=== PATIENT | male | born 1960 | race Caucasian/White ===

== ENCOUNTER 2020-09-27 13:44 | Emergency (ER) | payer MEDICARE, OTHER, SELFPAY ==
--- NOTE | 2020-09-27 | ECG_ITS ---
Test Reason : CHESTPAIN Blood Pressure : / mmHG Vent. Rate : 080 BPM Atrial Rate : 080 BPM P-R Int : 154 ms QRS Dur : 116 ms QT Int : 394 ms P-R-T Axes : 047 -34 109 degrees QTc Int : 454 ms Normal sinus rhythm Left axis deviation Intra-ventricular conduction delay Left ventricular hypertrophy with QRS widening and repolarization abnormality Abnormal ECG Left ventricular hypertrophy with repolizeration abnormality. is new Referred By: Generic ED Physician Electronically Signed By:ADRIENNE JOHNS MD
[2020-09-27 14:00] VITALS: BP 122/78; PULSE 80; RESP 18; TEMP 36.7; O2SAT 97
[2020-09-27 14:51] VITALS: BP 122/78; PULSE 80; RESP 18; TEMP 36.7; O2SAT 97; BMI 29.4
--- NOTE | 2020-09-27 15:15 | XR_ITS ---
EXAMINATION: XR CHEST CLINICAL INFORMATION: Chest pain COMPARISON: Chest x-ray 04/02/2019 TECHNIQUE: Frontal view of the chest was obtained. 3:23 PM FINDINGS: No significant abnormality is noted involving the heart, lungs, mediastinum, bony thorax or soft tissues. XR/XR chest 1V IMPRESSION: Unremarkable examination.
--- NOTE | 2020-09-27 15:31 | ED.CHESTPAIN ---
HPI - Chest Pain General Chief Complaint: Chest Pain Stated Complaint: chest pain Time Seen by Provider: 09/27/20 15:06 Source: patient Mode of arrival: ambulatory Limitations: no limitations History of Present Illness MD complaint: chest pain Onset (ago): week(s) (2) Timing of current episode: episodic Prior episodes: Yes Onset: during rest and during exertion Pain location: left chest Pain radiation: left arm Severity: moderate Quality: sharp Relieving factors: rest Exacerbating factors: exertion and movement Associated symptoms: nausea, diaphoresis and dyspnea Treatment prior to arrival: aspirin Related Data Allergies Allergy/AdvReac Type Severity Reaction Status Date / Time No Known Allergies Allergy Unverified 08/01/20 15:15 [No Known Allergies*] Review of Systems Review of Systems: Constitutional : No Weight loss, No Fever, No Chills ENT/Mouth : No sore throat, No Rhinorrhea Eyes: No Eye Pain, No Swelling Cardiovascular : pos Chest Pain, pos SOB, no Dyspnea on Exertion, No Orthopnea, No Edema, No Palpitations Respiratory : No Cough, No Sputum Gastrointestinal : pos Nausea, No Vomiting, No Diarrhea, No abdominal Pain, No Hematochezia, No Melena Genitourinary : No Dysuria, No Urinary Frequency Musculoskeletal : No joint pain, No Myalgias, No Joint Swelling Skin : No Skin Lesions, No rash Neuro : No Weakness, No Numbness, No Dizziness, No Headache Psych : No Anxiety/Panic, No Depression Heme/Lymph: No Bruising, No Lymphadenopathy Endocrine : No Polyuria, No Polydipsia All other systems reviewed and are negative [facility] Past Medical History Attestation statement: The following information was validated with the patient. Medical History Diabetes HTN (hypertension) Social History Social History (Updated 09/27/20 @ 15:39 by Marlene Schroeder DO) Alcohol intake: never Smoking Status: Current every day smoker Use of substances other than those prescribed or required for medical reasons: No Advance Directives: No Advance Directives Information Provided: Yes Physical Exam Vital Signs: Vital Signs: Last Vital Signs Temp 98.1 F 09/27/20 14:51 Pulse 80 09/27/20 14:51 Resp 18 09/27/20 14:51 BP 122/78 09/27/20 14:51 Pulse Ox 97 09/27/20 14:51 Body Mass Index 29.4 Appearance: Alert. Oriented X3. No acute distress. Eyes: Pupils equal, round and reactive to light. ENT: Pharynx normal. Neck: Normal inspection. Neck supple. CVS: Normal heart rate and rhythm. Pulses normal. Respiratory: No respiratory distress. Breath sounds normal. Abdomen: Soft and nontender. Skin: Skin warm and dry. Normal skin color. Normal skin turgor. Extremities: No lower extremity edema. No calf ttp Neuro: Oriented X 3. No motor deficit. No sensory deficit. Course Course Course Narrative: CATH MARCH 2019 LMCA normal, LAD less than 30% irregularities, LCx mild less than 30% irregularities, RCA 40% stenosis mid subsection - no interventions mild disease noted plan for repeat troponin at 6pm continue aspirin at home and follow up with cardiology if negative, signed out to Dr. Whitt [facility] - Chest Pain MDM Narrative Medical decision making narrative: 60 yo male with HTN, DM smoker - here with exact same story of house work and sex causing him to have CP on and off for 2 weeks currently chest pain free, EKG unchanged, calling [facility] as when he had these symptoms in March of 2019 we transferred him for unstable angina and cath, took baby ASA today Lab Data Result diagrams: 09/27/20 15:46 09/27/20 15:46 Labs: Lab Results 09/27/20 09/27/20 09/27/20 Range/Units 15:46 15:46 15:46 WBC 10.5 (4.8-10.8) X10*3/uL RBC 4.60 (4.60-5.80) X10*6/uL Hgb 12.5 L (14.0-18.0) g/dl Hct 39.3 L (42-52) % MCV 85.4 (80-98) fL MCH 27.2 (27.0-33.0) pg MCHC 31.8 (31.0-36.0) g/dl RDW 14.6 (11.0-16.0) % Plt Count 339 (160-400) X10*3/uL MPV 8.9 L (9.4-12.4) fL Immature Gran % (Auto) 0.3 (0.0-0.4) % Neut % (Auto) 71.5 (45-73) % Lymph % (Auto) 21.7 (20-40) % [place] % (Auto) 5.0 (2-11) % Eos % (Auto) 1.1 (0-4) % Baso % (Auto) 0.4 (0-2) % Lymph # (Auto) 2.3 (1.2-4.9) X10*3/uL [place] # (Auto) 0.5 (0.1-1.2) X10*3/uL Eos # (Auto) 0.1 (0.0-0.4) X10*3/uL Baso # (Auto) 0.0 (0.0-0.2) X10*3/uL Abs Immat Gran (auto) 0.03 (0.00-0.03) X10*3/uL Absolute Neuts (auto) 7.5 (2.0-8.3) X10*3/uL Absolute Nucleated RBC 0.000 (0.0-0.012) X10*3/uL Nucleated RBC % (auto) 0.0 (0.0-0.2) /100WBC PT 11.8 (10.8-13.0) SEC INR 1.0 (0.9-1.1) APTT 37.3 (24.1-38.0) SEC Sodium 140 (135-145) mmol/L Potassium 4.2 (3.3-5.1) mmol/l Chloride 103 (96-108) mmol/L Carbon Dioxide 29 (22-29) mmol/L Anion Gap 12 (12-20) BUN 10 (9-16) mg/dL Creatinine 0.81 (0.5-1.4) mg/dL Estim Creat Clear Calc 111.1 Estimated GFR > 60 Random Glucose 126 H (60-115) mg/dL Calcium 9.0 (8.4-10.2) mg/dL Troponin I High Sens (<3.5-35.0) ng/L 09/27/20 Range/Units 15:46 WBC (4.8-10.8) X10*3/uL RBC (4.60-5.80) X10*6/uL Hgb (14.0-18.0) g/dl Hct (42-52) % MCV (80-98) fL MCH (27.0-33.0) pg MCHC (31.0-36.0) g/dl RDW (11.0-16.0) % Plt Count (160-400) X10*3/uL MPV (9.4-12.4) fL Immature Gran % (Auto) (0.0-0.4) % Neut % (Auto) (45-73) % Lymph % (Auto) (20-40) % [place] % (Auto) (2-11) % Eos % (Auto) (0-4) % Baso % (Auto) (0-2) % Lymph # (Auto) (1.2-4.9) X10*3/uL [place] # (Auto) (0.1-1.2) X10*3/uL Eos # (Auto) (0.0-0.4) X10*3/uL Baso # (Auto) (0.0-0.2) X10*3/uL Abs Immat Gran (auto) (0.00-0.03) X10*3/uL Absolute Neuts (auto) (2.0-8.3) X10*3/uL Absolute Nucleated RBC (0.0-0.012) X10*3/uL Nucleated RBC % (auto) (0.0-0.2) /100WBC PT (10.8-13.0) SEC INR (0.9-1.1) APTT (24.1-38.0) SEC Sodium (135-145) mmol/L Potassium (3.3-5.1) mmol/l Chloride (96-108) mmol/L Carbon Dioxide (22-29) mmol/L Anion Gap (12-20) BUN (9-16) mg/dL Creatinine (0.5-1.4) mg/dL Estim Creat Clear Calc Estimated GFR Random Glucose (60-115) mg/dL Calcium (8.4-10.2) mg/dL Troponin I High Sens 4.5 (<3.5-35.0) ng/L ECG Data ECG #1: Attestation: I personally reviewed and interpreted this ECG as follows: ECG interpretation date: 09/27/20 ECG interpretation time: 15:36 Interpretation: Rate: 80 Rhythm: NSR [place]: left, LVH Normal P waves. Normal FAUZIA. wide QRS complex. Poor R wave progression ST T wave : inverted 1 and aVL. no ELISEO qTC: prior studies: no change March 2019 The study has been interpreted contemporaneously by me. . Discharge Plan Discharge Clinical Impression: Chest pain Instructions: Chest Pain (ED) Additional Instructions: return to ED for any worsening symptoms or concerns you need to call your test desk trouble locator for a repeat stress test Referrals: Aj Alonso MD [Primary Care Provider] - 2 days (cardiology referral for outpatient stress test)
[2020-09-27 16:04] LABS: MANUAL DIFF FLAG NO
[2020-09-27 16:07] LABS: Basophils Percent Auto 0.4 % (0-2); Eosinophils Absolute Auto 0.1 X10*3/uL (0.0-0.4); Eosinophils Percent Auto 1.1 % (0-4); Hematocrit 39.3 % (42-52); Hemoglobin 12.5 g/dl (14.0-18.0); Imm Gran Abs Auto 0.03 X10*3/uL (0.00-0.03); Imm Gran Pct Auto 0.3 % (0.0-0.4); Lymphocytes Absolute Auto 2.3 X10*3/uL (1.2-4.9); Lymphocytes Percent Auto 21.7 % (20-40); Mean Corpuscular HGB Conc 31.8 g/dl (31.0-36.0); Mean Corpuscular Hemoglobin 27.2 pg (27.0-33.0); Mean Corpuscular Volume 85.4 fL (80-98); Mean Platelet Volume 8.9 fL (9.4-12.4); Monocytes Absolute Auto 0.5 X10*3/uL (0.1-1.2); Neutrophils Absolute Auto 7.5 X10*3/uL (2.0-8.3); Neutrophils Percent Auto 71.5 % (45-73); Platelet Count 339 X10*3/uL (160-400); Red Cell Distribution Width 14.6 % (11.0-16.0); White Blood Count 10.5 X10*3/uL (4.8-10.8)
[2020-09-27 16:11] LABS: Prothrombin Time 11.8 SEC (10.8-13.0)
[2020-09-27 16:13] LABS: Partial Thromboplastin Time 37.3 SEC (24.1-38.0)
[2020-09-27 16:26] LABS: Anion Gap 12 (12-20); Blood Urea Nitrogen 10 mg/dL (9-16); Carbon Dioxide 29 mmol/L (22-29); Chloride 103 mmol/L (96-108); Creatinine Clr Calc Pharmacy 111.1; Estimated Glomerular Filt Rate > 60; Glucose Random 126 mg/dL (60-115); Potassium 4.2 mmol/l (3.3-5.1); Sodium 140 mmol/L (135-145)
[2020-09-27 16:31] LABS: Troponin-I High Sensitivity 4.5 ng/L (<3.5-35.0)
[2020-09-27 17:03] VITALS: BP 133/84; PULSE 71; RESP 16; TEMP 36.6; O2SAT 98
[2020-09-27 18:06] LABS: Alanine Aminotransferase 27 U/L (0-40); Albumin Level 3.9 g/dL (3.5-5.0); Alkaline Phosphatase 60 U/L (39-117); Aspartate Amino Transferase 24 U/L (5-37); Bilirubin Direct 0.3 mg/dL (0.0-0.5); Bilirubin Total 0.7 mg/dL (0.0-1.0); Lipase 28 U/L (8-78); Magnesium 1.7 mg/dL (1.6-2.6); Total Protein 6.8 g/dL (6.5-8.0)
[2020-09-27 19:40] LABS: Troponin-I High Sensitivity 5.7 ng/L (<3.5-35.0)
--- NOTE | 2020-09-27 20:22 | ECG_ITS ---
Test Reason : CHEST PAIN Blood Pressure : / mmHG Vent. Rate : 075 BPM Atrial Rate : 075 BPM P-R Int : 182 ms QRS Dur : 122 ms QT Int : 406 ms P-R-T Axes : 045 -29 103 degrees QTc Int : 453 ms Normal sinus rhythm Left axis deviation Left ventricular hypertrophy with QRS widening Cannot rule out Septal infarct (cited on or before 27-SEP-2020) Abnormal ECG When compared with ECG of 27-SEP-2020 13:56, Serial changes of Septal infarct Present Referred By: Rosanna Whitt Electronically Signed By:ADRIENNE JOHNS MD
== END 2020-09-27 22:24 | disposition home or self-care (01) ==
PROVIDERS: Emergency Medicine; Emergency Provider Emergency Medicine; PCP Internal Medicine
DX: R07.9 Chest pain, unspecified (principal); M79.602 Pain in left arm; F17.200 Nicotine dependence, unspecified, uncomplicated; Z71.6 Tobacco abuse counseling
CPT/HCPCS: 36415; 71045; 80048; 80076; 83690; 83735; 84484; 85025; 85610; 85730; 93005; 99284

== ENCOUNTER 2020-10-02 19:48 | Inpatient (IN) | payer MEDICARE, OTHER, SELFPAY ==
[2020-10-02 19:59] VITALS: BP 157/92; PULSE 86; RESP 16; TEMP 36.6; O2SAT 100; BMI 30.1
--- NOTE | 2020-10-02 20:59 | XR_ITS ---
EXAMINATION: XR CHEST CLINICAL INFORMATION: Chest pain COMPARISON: 09/27/2020 TECHNIQUE: Frontal view of the chest was obtained. FINDINGS: Lungs are well-inflated and clear. Trachea is midline in position. No interstitial disease, consolidation or mass. No pleural effusion or pneumothorax. Cardiac silhouette and pulmonary vessels are normal in size. The mediastinum and fifi have normal contour. Mild atherosclerotic calcification of the aortic arch. The visualized bones, and upper abdomen, are unremarkable. XR/XR chest 1V IMPRESSION: No acute cardiopulmonary abnormality.
--- NOTE | 2020-10-02 20:59 | ECG_ITS ---
Test Reason : CP Blood Pressure : / mmHG Vent. Rate : 095 BPM Atrial Rate : 095 BPM P-R Int : 154 ms QRS Dur : 116 ms QT Int : 362 ms P-R-T Axes : 047 -33 128 degrees QTc Int : 454 ms Normal sinus rhythm with sinus arrhythmia Left axis deviation Left ventricular hypertrophy with QRS widening and repolarization abnormality Cannot rule out Septal infarct (cited on or before 27-SEP-2020) ST more elevated in Septal leads Abnormal ECG When compared with ECG of 27-SEP-2020 20:22, Serial changes of Septal infarct Present Heart rate has increased Referred By: Perla Jasso Electronically Signed By:ADRIENNE JOHNS MD
--- NOTE | 2020-10-02 21:13 | PC.NURSE ---
PT REPORTS ANXIETY BEGINNING AROUND 1900. MID STERNAL TIGHT CHEST PAIN RADIATING TO BACK BEGINNING SHORTLY AFTER. N/V. DENIES SOB DENIES DIZZINESS. 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 NSR ON MONITOR. MD AT BEDSIDE FOR PRIMARY EVAL. PT REPORTS SIMILIAR EVENT LAST NIGHT AROUND 2300.
--- NOTE | 2020-10-02 21:20 | ED_ITS ---
HPI - Chest Pain General Chief Complaint: Chest Pain Stated Complaint: Chest Pain Time Seen by Provider: 10/02/20 20:59 Source: patient Mode of arrival: ambulatory Limitations: no limitations History of Present Illness HPI narrative: This is a 60-year-old male with past medical history significant for hypertension diabetes who presents with recurrent episodes of left anterior chest discomfort. This patient was evaluated here last Wednesday and discharged with instructions to follow-up with the primary care provider and possible discussion for further evaluation by Cardiology. He states that since that time he has had 2 more episodes of transient sharp left anterior chest pain that radiates in an oblique fashion from his left shoulder and is associated with some nausea and lasts 30 seconds to 7 minutes and worsens with movement but not with deep inspiration.. This has otherwise not been associated with dizziness or diaphoresis. He has an appointment tomorrow with his PCP at which time they will schedule him for further evaluation by Cardiology. Related Data Home Medications Medication Instructions Recorded Confirmed aspirin 81 mg DAILY 10/03/20 10/03/20 insulin glargine [Lantus Solostar 42 unit SUBCUT BEDTIME 10/03/20 10/03/20 U-100 Insulin] metformin 1,000 mg BID 10/03/20 10/03/20 omega-3 fatty acids [Fish Oil] PO BID 10/03/20 omeprazole [Prilosec] 20 mg DAILY 10/03/20 10/03/20 Allergies Allergy/AdvReac Type Severity Reaction Status Date / Time No Known Allergies Allergy Unverified 08/01/20 15:15 [No Known Allergies*] Review of Systems Review of Systems: Pertinent positives and negatives as stated in HPI 10 point review of systems is otherwise negative. [facility] Past Medical History Source: nursing notes reviewed Medical History (Updated 10/03/20 @ 03:52 by Rosemary Giles MD) Diabetes HTN (hypertension) Social History Social History Alcohol intake: current Alcohol intake frequency: a few times a week Smoking Status: Current every day smoker Advance Directives: No Advance Directives Information Provided: Yes Physical Exam Vital Signs: Vital Signs: Last Vital Signs Temp 97.5 F 10/03/20 01:13 Pulse 65 10/03/20 05:32 Resp 18 10/03/20 05:32 BP 124/70 10/03/20 02:46 Pulse Ox 99 10/03/20 05:32 Body Mass Index 30.1 VITAL SIGNS: Reviewed. GENERAL: Well developed, well nourished, in no acute distress. HEAD: Normocephalic/atraumatic, EYES: PERRLA, EOMI intact without pain, no nystagmus/pallor/icterus noted EARS: Ext canals without abnormality, TMs non-bulging and non-erythematous NOSE: Nares patent bilateral OROPHARYNX: no oral lesions noted, posterior pharynx clear and non-erythematous without noted tonsillar enlargement/erythema/exudates NECK: Supple, no adenopathy LUNGS: Normal breath sounds. No adventitious sounds or accessory muscle use. SpO2<100> CARDIOVASCULAR: Regular rate and rhythm without noted murmurs, no JVD or lower extremity edema. ABDOMEN: Soft, non-tender, non-distended with bowel sounds. No rigidity. No guarding. No palpable masses or hernias noted MUSCULOSKELETAL: No tenderness, deformities, or effusions noted on gross inspection. EXTREMITIES: No cyanosis, clubbing or edema. SKIN: Inspection of the skin reveals no rashes, ulcerations, jaundice, pallor, or petechiae. NEUROLOGIC: Alert and oriented x 4. Strength and sensation to light touch were grossly intact x 4. Course Course Course Narrative: This is a 60-year-old male with history and clinical presentation most consistent with costochondritis, GERD, and less likely pneumonia or cardiac ischemia. However, the 2 latter will be ruled out. HEART score - 3 review all lab work there is a noted mild leukocytosis, however of note initial high sensitivity troponin is 13 which is more than double from Wednesday when he was initially evaluated here in the emergency department. On subsequent high sensitivity troponin this evening the 2nd value is over 41. However, at this time patient is chest pain-free. 0205: This case was discussed with Dr. Sousa who recommends single dose of Lovenox and admission. Discussed case with the inpatient hospitalist who is agreeable for admission. MDM - Chest Pain Lab Data Result diagrams: 10/02/20 21:16 10/02/20 21:16 Labs: Lab Results 10/02/20 10/02/20 10/02/20 Range/Units 21:16 21:16 21:16 WBC 12.1 H (4.8-10.8) X10*3/uL RBC 4.70 (4.60-5.80) X10*6/uL Hgb 12.8 L (14.0-18.0) g/dl Hct 40.3 L (42-52) % MCV 85.7 (80-98) fL MCH 27.2 (27.0-33.0) pg MCHC 31.8 (31.0-36.0) g/dl RDW 14.6 (11.0-16.0) % Plt Count 336 (160-400) X10*3/uL MPV 9.1 L (9.4-12.4) fL Immature Gran % (Auto) 0.2 (0.0-0.4) % Neut % (Auto) 67.4 (45-73) % Lymph % (Auto) 22.1 (20-40) % [place] % (Auto) 7.7 (2-11) % Eos % (Auto) 2.1 (0-4) % Baso % (Auto) 0.5 (0-2) % Lymph # (Auto) 2.7 (1.2-4.9) X10*3/uL [place] # (Auto) 0.9 (0.1-1.2) X10*3/uL Eos # (Auto) 0.3 (0.0-0.4) X10*3/uL Baso # (Auto) 0.1 (0.0-0.2) X10*3/uL Abs Immat Gran (auto) 0.03 (0.00-0.03) X10*3/uL Absolute Neuts (auto) 8.2 (2.0-8.3) X10*3/uL Absolute Nucleated RBC 0.000 (0.0-0.012) X10*3/uL Nucleated RBC % (auto) 0.0 (0.0-0.2) /100WBC D-Dimer NG/ML Hold Blue Top Sodium 139 (135-145) mmol/L Potassium 4.2 (3.3-5.1) mmol/l Chloride 103 (96-108) mmol/L Carbon Dioxide 25 (22-29) mmol/L Anion Gap 15 (12-20) BUN 13 (9-16) mg/dL Creatinine 0.93 (0.5-1.4) mg/dL Estim Creat Clear Calc 97.8 Estimated GFR > 60 Random Glucose 116 H (60-115) mg/dL Calcium 9.2 (8.4-10.2) mg/dL Total Bilirubin 0.5 (0.0-1.0) mg/dL AST 31 (5-37) U/L ALT 28 (0-40) U/L Alkaline Phosphatase 71 (39-117) U/L Troponin I High Sens 13.0 D (<3.5-35.0) ng/L Total Protein 7.5 (6.5-8.0) g/dL Albumin 4.1 (3.5-5.0) g/dL Lipase 19 (8-78) U/L COVID-19 (MJ) (Negative) COVID-19 Clin Com 10/02/20 10/03/20 10/03/20 Range/Units 21:17 01:08 02:51 WBC (4.8-10.8) X10*3/uL RBC (4.60-5.80) X10*6/uL Hgb (14.0-18.0) g/dl Hct (42-52) % MCV (80-98) fL MCH (27.0-33.0) pg MCHC (31.0-36.0) g/dl RDW (11.0-16.0) % Plt Count (160-400) X10*3/uL MPV (9.4-12.4) fL Immature Gran % (Auto) (0.0-0.4) % Neut % (Auto) (45-73) % Lymph % (Auto) (20-40) % [place] % (Auto) (2-11) % Eos % (Auto) (0-4) % Baso % (Auto) (0-2) % Lymph # (Auto) (1.2-4.9) X10*3/uL [place] # (Auto) (0.1-1.2) X10*3/uL Eos # (Auto) (0.0-0.4) X10*3/uL Baso # (Auto) (0.0-0.2) X10*3/uL Abs Immat Gran (auto) (0.00-0.03) X10*3/uL Absolute Neuts (auto) (2.0-8.3) X10*3/uL Absolute Nucleated RBC (0.0-0.012) X10*3/uL Nucleated RBC % (auto) (0.0-0.2) /100WBC D-Dimer < 200 NG/ML Hold Blue Top SEE NOTE Sodium (135-145) mmol/L Potassium (3.3-5.1) mmol/l Chloride (96-108) mmol/L Carbon Dioxide (22-29) mmol/L Anion Gap (12-20) BUN (9-16) mg/dL Creatinine (0.5-1.4) mg/dL Estim Creat Clear Calc Estimated GFR Random Glucose (60-115) mg/dL Calcium (8.4-10.2) mg/dL Total Bilirubin (0.0-1.0) mg/dL AST (5-37) U/L ALT (0-40) U/L Alkaline Phosphatase (39-117) U/L Troponin I High Sens 41.2 H D (<3.5-35.0) ng/L Total Protein (6.5-8.0) g/dL Albumin (3.5-5.0) g/dL Lipase (8-78) U/L COVID-19 (MJ) Negative (Negative) COVID-19 Clin Com See Note ECG Data ECG #1: Attestation: I personally reviewed and interpreted this ECG as follows: Prior ECG tracings: available for review ( 09/27/2020 without acute changes on comparison) Interpretation: normal sinus rhythm, HR - 95, no evidence of acute ischemia, MT/QTC are within normal limits, QRS -116 Discharge Plan Discharge Clinical Impression: Non-ST elevation [place] (NSTEMI) Patient Disposition: Admitted As Inpatient
[2020-10-02 21:33] LABS: Basophils Absolute Auto 0.1 X10*3/uL (0.0-0.2); Basophils Percent Auto 0.5 % (0-2); Eosinophils Absolute Auto 0.3 X10*3/uL (0.0-0.4); Eosinophils Percent Auto 2.1 % (0-4); Hematocrit 40.3 % (42-52); Hemoglobin 12.8 g/dl (14.0-18.0); Imm Gran Abs Auto 0.03 X10*3/uL (0.00-0.03); Imm Gran Pct Auto 0.2 % (0.0-0.4); Lymphocytes Absolute Auto 2.7 X10*3/uL (1.2-4.9); Lymphocytes Percent Auto 22.1 % (20-40); MANUAL DIFF FLAG NO; Mean Corpuscular HGB Conc 31.8 g/dl (31.0-36.0); Mean Corpuscular Hemoglobin 27.2 pg (27.0-33.0); Mean Corpuscular Volume 85.7 fL (80-98); Mean Platelet Volume 9.1 fL (9.4-12.4); Monocytes Absolute Auto 0.9 X10*3/uL (0.1-1.2); Monocytes Percent Auto 7.7 % (2-11); Neutrophils Absolute Auto 8.2 X10*3/uL (2.0-8.3); Neutrophils Percent Auto 67.4 % (45-73); Platelet Count 336 X10*3/uL (160-400); Red Cell Distribution Width 14.6 % (11.0-16.0); White Blood Count 12.1 X10*3/uL (4.8-10.8)
[2020-10-02 21:54] LABS: Alanine Aminotransferase 28 U/L (0-40); Albumin Level 4.1 g/dL (3.5-5.0); Alkaline Phosphatase 71 U/L (39-117); Anion Gap 15 (12-20); Aspartate Amino Transferase 31 U/L (5-37); Bilirubin Total 0.5 mg/dL (0.0-1.0); Blood Urea Nitrogen 13 mg/dL (9-16); Calcium 9.2 mg/dL (8.4-10.2); Carbon Dioxide 25 mmol/L (22-29); Chloride 103 mmol/L (96-108); Creatinine Clr Calc Pharmacy 97.8; Estimated Glomerular Filt Rate > 60; Glucose Random 116 mg/dL (60-115); Lipase 19 U/L (8-78); Potassium 4.2 mmol/l (3.3-5.1); Sodium 139 mmol/L (135-145); Total Protein 7.5 g/dL (6.5-8.0)
[2020-10-02 23:19] LABS: D Dimer < 200 NG/ML
--- NOTE | 2020-10-02 23:27 | PC.NURSE ---
PT RESTING IN BED SKIN PWD RESPIRATIONS EVEN UNLABORED. NSR ON MONITOR. AWAITING SERIAL TROPONIN. AWARE OF PLAN OF CARE. DENIES PAIN AT THIS TIME.
[2020-10-03] VITALS (8 sets, daily range): BP systolic 117–153; BP diastolic 67–90; PULSE 65–76; RESP 18; TEMP 33.3–36.8; O2SAT 97–100
--- NOTE | 2020-10-03 | CT_ITS ---
EXAMINATION: CT ANGIOGRAM OF THE CHEST WITH AND WITHOUT CONTRAST (CT PULMONARY ANGIOGRAM FOR PE) CLINICAL INFORMATION: Reason for Exam chest pain r/o pulmonary embolism COMPARISON: Radiograph 10/02/2020. TECHNIQUE: Prior to contrast administration, noncontrast localization images were obtained. Subsequently, multidetector volumetric imaging was performed from the thoracic inlet to below the diaphragms following the administration of 65 mL Omnipaque 350 intravenous contrast. No contrast reaction reported Sagittal, coronal, and MIP oblique sagittal reformatted images were obtained on the CT workstation, uploaded to PACS, and reviewed. This CT examination was performed using dose optimization techniques as appropriate, variously including the following: *Automated exposure control *Adjustment of mA and/or kV according to patient size (this includes techniques or standardized protocols for targeted exams where dose is matched to indication/reason for exam; i.e. extremities or head) *Use of iterative reconstruction technique Total exam dose-length product 327 mGy-cm FINDINGS: QUALITY OF STUDY/CONTRAST BOLUS: Satisfactory. PULMONARY ARTERIES: No central or segmental pulmonary emboli. THORACIC AORTA: No aneurysm or dissection. LUNG: No focal consolidation, nodules or masses. The central airways are patent. Minimal bibasilar atelectasis. PLEURA: No pleural effusion or pneumothorax. MEDIASTINUM: Normal heart size. No pericardial effusion. Coronary artery calcifications are present. No hilar or mediastinal lymphadenopathy. No evidence of septal bowing or right heart strain. CHEST WALL/AXILLA: No axillary or internal mammary lymphadenopathy. OSSEOUS STRUCTURES: No acute or suspicious osseous abnormality. UPPER ABDOMEN: Unremarkable. No reflux of contrast into the hepatic veins to suggest elevated right heart pressures. CT/CT angio chest PE protocol IMPRESSION: No pulmonary embolism or other acute intrathoracic abnormality. VTE: negative
[2020-10-03 01:38] LABS: Troponin-I High Sensitivity 41.2 ng/L (<3.5-35.0)
[2020-10-03] MEDS: Aspirin 81 MG TAB.CHEW 324 MG PO (02:52)
[2020-10-03] MEDS: Enoxaparin Sodium 120 MG/0.8 ML SYRINGE 95 MG SUBCUT (03:07)
--- NOTE | 2020-10-03 03:09 | PC.NURSE ---
HOSPITALIST AT BEDSIDE FOR CONSULT.
[2020-10-03 03:14] LABS: COVID-19 Test Negative (Negative); IDNOW Serial# 9DD0AD1C
--- NOTE | 2020-10-03 03:42 | PM.IMHP ---
History of Present Illness Date of Service: 10/03/20 Chief Complaint: Chest pain 60 y/o male with extensive PMHX who presented from home due to chest pain. Per history provided by the patient, for the past 2 days has been having on and off chest pressure, in the left sided of the chest radiating to the left arm, at rest and on ambulation, not associated with SOB. Pain is reproducible when palpating the chest. WBC of 12.1, Trop from 13 to 41. CXR clear, EKG showing LVH with strain. 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 Records were reviewed and patient had a previous admission on march of last year for same complaints. Patient was transferred to [facility] for cardiac cath. It is unclear the results of the exam but patient was supposed to followed up this week with cardio per him. Decision for admission given. Patient seen and examined at the bedside, laying down in bed in no acute distress, ROS as above otherwise negative. Physical exam positive for tenderness of the left sided of the chest. PMHX: 1. Hypertension 2. Hyperlipidemia 3. Diabetes mellitus 4. Smoker 5. History of TIA 6. Chronic back pain Past surgical history: Left knee surgery Cardiac catth Toxic habits: Smoker, Alcohol use, No hx of IVDA Review of Systems Cardiovascular: Cardiovascular: Reports [facility] Medical History Diabetes HTN (hypertension) Functional capacity: independent ambulation Family history: reviewed and not pertinent Social History Alcohol intake: current Alcohol intake frequency: a few times a week Smoking Status: Current every day smoker Advance Directives: No Advance Directives Information Provided: Yes Meds Allergies Allergy/AdvReac Type Severity Reaction Status Date / Time No Known Allergies Allergy Unverified 08/01/20 15:15 [No Known Allergies*] Home Medications Medication Instructions Recorded Confirmed Type No Known Home Meds 10/03/20 10/03/20 History omeprazole [Prilosec] 10/03/20 History Physical Exam Vital Signs and Narrative: Vital Signs: Last Vital Signs Temp 97.5 F 10/03/20 01:13 Pulse 71 10/03/20 02:46 Resp 18 10/03/20 02:46 BP 124/70 10/03/20 02:46 Pulse Ox 100 10/03/20 02:46 Body Mass Index 30.1 Const: General: cooperative, comfortable and no acute distress Orientation/consciousness: oriented to person, oriented to place and oriented to time HENMT: Head: Yes normal to inspection Eyes: General: appearance normal, both eyes and all related structures Neck: Yes normal visual inspection Chest: Chest palpation & inspection: normal inspection of the chest and other (tenderness on palpation of left side of the chest ) Resp: Effort & Inspection: normal respiratory effort Cardio: Jugular venous distension: no JVD Rate: regular rate Rhythm: regular rhythm Heart sounds: S1 normal heart sound present and S2 normal heart sound present GI: Inspection: Yes normal to inspection Skin: General skin exam: no rashes or lesions noted Neuro: General: oriented to person, oriented to place and oriented to time Cognition (Neuro): normal cognition Motor exam (neuro): 5/5 motor strength present throughout Results Labs CBC and Chem 7: 10/02/20 21:16 10/02/20 21:16 Labs: Laboratory Results - last 24 hr 10/02/20 10/02/20 10/02/20 21:16 21:16 21:16 MCV 85.7 MCH 27.2 MCHC 31.8 RDW 14.6 Plt Count 336 MPV 9.1 L Immature Gran % (Auto) 0.2 Neut % (Auto) 67.4 Lymph % (Auto) 22.1 [place] % (Auto) 7.7 Eos % (Auto) 2.1 Baso % (Auto) 0.5 Lymph # (Auto) 2.7 [place] # (Auto) 0.9 Eos # (Auto) 0.3 Baso # (Auto) 0.1 Abs Immat Gran (auto) 0.03 Absolute Neuts (auto) 8.2 Absolute Nucleated RBC 0.000 Nucleated RBC % (auto) 0.0 D-Dimer Hold Blue Top Anion Gap 15 Estim Creat Clear Calc 97.8 Estimated GFR > 60 Random Glucose 116 H Calcium 9.2 Total Bilirubin 0.5 AST 31 ALT 28 Alkaline Phosphatase 71 Troponin I High Sens 13.0 D Total Protein 7.5 Albumin 4.1 Lipase 19 COVID-19 (MJ) COVID-19 Clin Com 10/02/20 10/03/20 10/03/20 21:17 01:08 02:51 MCV MCH MCHC RDW Plt Count MPV Immature Gran % (Auto) Neut % (Auto) Lymph % (Auto) [place] % (Auto) Eos % (Auto) Baso % (Auto) Lymph # (Auto) [place] # (Auto) Eos # (Auto) Baso # (Auto) Abs Immat Gran (auto) Absolute Neuts (auto) Absolute Nucleated RBC Nucleated RBC % (auto) D-Dimer < 200 Hold Blue Top SEE NOTE Anion Gap Estim Creat Clear Calc Estimated GFR Random Glucose Calcium Total Bilirubin AST ALT Alkaline Phosphatase Troponin I High Sens 41.2 H D Total Protein Albumin Lipase COVID-19 (MJ) Negative COVID-19 Clin Com See Note Imaging Radiologist's Impressions: Impressions Chest X-Ray 10/02/20 20:59 IMPRESSION: No acute cardiopulmonary abnormality. Assessment and Plan (1) Non-ST elevation MO (NSTEMI): Status: Acute S/p one dose of full dose Lovenox Per ED Cardio only recommended one dose of Full AC open soaper tender Follow up 2D echo in the am Pain reproducibel with palpation likely musculoskeletal Cardio consult in the am (2) HTN (hypertension): Status: Acute unclear patient's meds at present as reconcilliation is not complete. [facility] pharmacy to be called in the am for confirmation (3) Diabetes: Status: Acute Insulin regimen as ordered
--- NOTE | 2020-10-03 04:26 | PC.NURSE ---
PT NOT VERY KNOWLEDGEABLE ABOUT HOME MEDS. MED REC UPDATED PER PT ABILITY TO RECALL. PHARMACY CLOSED, NO EXTERNAL MED HISTORY IN COMPUTER. HOSPITALIST AWARE. PT RESTING IN BED NSR ON MONITOR, SKIN PWD RESPIRATIONS EVEN UNLABORED. AWAITING BED ASSIGNMENT FOR ADMISSION.
--- NOTE | 2020-10-03 05:33 | PC.NURSE ---
PT CONTINUES TO REST IN BED SKIN PWD RESPIRATIONS EVEN UNLABORED. 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 AWAITING BED ASSIGNMENT.
[2020-10-03 05:35] LABS: Prothrombin Time 11.6 SEC (10.8-13.0)
[2020-10-03 05:38] LABS: Partial Thromboplastin Time 48.1 SEC (24.1-38.0)
--- NOTE | 2020-10-03 11:22 | P.CONCA_ITS ---
History of Present Illness History of Present Illness Date of Consult: October 03, 2020 Chief complaint: NSTEMI Narrative: This is a cardiology consultation regarding chest pain. Not entirely clear if he sees any quantitative analyst developer. For the last several days, he has been having a discomfort in the left chest as well as in the left shoulder area. He can happen randomly. this can happen during rest as well as physical exertion. There was also some reproducibility as well. He has a history of diabetes, hypertension as well as dyslipidemia and smoking. Because of cardiac concerns, he has been admitted. Review of Systems Review of Systems: Cardiac-positive for chest pain but somewhat atypical for angina; negative for shortness of breath; negative for palpitations or dizzy spells or syncopal episodes. Yes all other systems are reviewed and are negative PMFSH Past Medical History Medical History Diabetes HTN (hypertension) Functional capacity: independent ambulation Family History Family history: reviewed and not pertinent Social History Social History Alcohol intake: current Alcohol intake frequency: a few times a week Smoking Status: Current every day smoker Advance Directives: No Advance Directives Information Provided: Yes Meds Allergies Allergy/AdvReac Type Severity Reaction Status Date / Time No Known Allergies Allergy Unverified 08/01/20 15:15 [No Known Allergies*] Home Medications Medication Instructions Recorded Confirmed Type aspirin 81 mg DAILY 10/03/20 10/03/20 History insulin glargine [Lantus Solostar 42 unit SUBCUT BEDTIME 10/03/20 10/03/20 History U-100 Insulin] metformin 1,000 mg BID 10/03/20 10/03/20 History omega-3 fatty acids [Fish Oil] PO BID 10/03/20 History omeprazole [Prilosec] 20 mg DAILY 10/03/20 10/03/20 History Physical Exam Vital Signs: Vital Signs: Last Vital Signs Temp 92 F L 10/03/20 08:00 Pulse 65 10/03/20 08:00 Resp 18 10/03/20 08:00 BP 124/70 10/03/20 08:00 Pulse Ox 99 10/03/20 08:00 Body Mass Index 30.1 Comfortable, no distress No pallor, icterus or cyanosis HEENT -unremarkable JVD- normal Cardiac- normal heart sounds, no murmurs, gallops or rubs, normal PMI Respiratory-normal breath sounds bilaterally, no crackles, no wheeze Abdomen- soft, nontender Neuro- alert and oriented Lower extremities- no significant edema, warm well perfused Results Labs and Meds Result diagrams: 10/02/20 21:16 10/02/20 21:16 Lab results: Laboratory Results - last 24 hr 10/02/20 10/02/20 10/02/20 21:16 21:16 21:16 WBC 12.1 H RBC 4.70 Hgb 12.8 L Hct 40.3 L MCV 85.7 MCH 27.2 MCHC 31.8 RDW 14.6 Plt Count 336 MPV 9.1 L Immature Gran % (Auto) 0.2 Neut % (Auto) 67.4 Lymph % (Auto) 22.1 [place] % (Auto) 7.7 Eos % (Auto) 2.1 Baso % (Auto) 0.5 Lymph # (Auto) 2.7 [place] # (Auto) 0.9 Eos # (Auto) 0.3 Baso # (Auto) 0.1 Abs Immat Gran (auto) 0.03 Absolute Neuts (auto) 8.2 Absolute Nucleated RBC 0.000 Nucleated RBC % (auto) 0.0 PT INR APTT D-Dimer Hold Blue Top Sodium 139 Potassium 4.2 Chloride 103 Carbon Dioxide 25 Anion Gap 15 BUN 13 Creatinine 0.93 Estim Creat Clear Calc 97.8 Estimated GFR > 60 Random Glucose 116 H Calcium 9.2 Total Bilirubin 0.5 AST 31 ALT 28 Alkaline Phosphatase 71 Troponin I High Sens 13.0 D Total Protein 7.5 Albumin 4.1 Lipase 19 COVID-19 (MJ) COVID-19 Clin Com 10/02/20 10/03/20 10/03/20 21:17 01:08 02:51 WBC RBC Hgb Hct MCV MCH MCHC RDW Plt Count MPV Immature Gran % (Auto) Neut % (Auto) Lymph % (Auto) [place] % (Auto) Eos % (Auto) Baso % (Auto) Lymph # (Auto) [place] # (Auto) Eos # (Auto) Baso # (Auto) Abs Immat Gran (auto) Absolute Neuts (auto) Absolute Nucleated RBC Nucleated RBC % (auto) PT INR APTT D-Dimer < 200 Hold Blue Top SEE NOTE Sodium Potassium Chloride Carbon Dioxide Anion Gap BUN Creatinine Estim Creat Clear Calc Estimated GFR Random Glucose Calcium Total Bilirubin AST ALT Alkaline Phosphatase Troponin I High Sens 41.2 H D Total Protein Albumin Lipase COVID-19 (MJ) Negative COVID-19 Clin Com See Note 10/03/20 05:23 WBC RBC Hgb Hct MCV MCH MCHC RDW Plt Count MPV Immature Gran % (Auto) Neut % (Auto) Lymph % (Auto) [place] % (Auto) Eos % (Auto) Baso % (Auto) Lymph # (Auto) [place] # (Auto) Eos # (Auto) Baso # (Auto) Abs Immat Gran (auto) Absolute Neuts (auto) Absolute Nucleated RBC Nucleated RBC % (auto) PT 11.6 INR 1.0 APTT 48.1 H D D-Dimer Hold Blue Top Sodium Potassium Chloride Carbon Dioxide Anion Gap BUN Creatinine Estim Creat Clear Calc Estimated GFR Random Glucose Calcium Total Bilirubin AST ALT Alkaline Phosphatase Troponin I High Sens Total Protein Albumin Lipase COVID-19 (MJ) COVID-19 Clin Com Assessment and Plan (1) Precordial chest pain: Status: Acute (2) Elevated troponin: Status: Acute (3) Atherosclerotic cardiovascular disease: Status: Acute (4) Type 2 diabetes mellitus with unspecified complications: Status: Acute (5) Essential hypertension: Status: Acute (6) Smoking: Status: Acute Cardiac catheterization data reviewed. This was performed 03/2019. left main was normal. Mild luminal irregularities only in the LAD and circumflex and 40% stenosis in the midsection of RCA. Overall, no obstructive disease noted. Uncertain etiology for his current symptoms. Will need to also assess him for any pulmonary embolism or other pulmonary issues. If that is negative, then microvascular disease is possible. Will follow up with you. Echocardiogram can be completed as well. Repeat troponins. Procedures Abscess I/D Date of Service: 10/03/20
--- NOTE | 2020-10-03 11:34 | PC.NURSE ---
report given to daniel lomax
[2020-10-03] MEDS: iohexoL 350 MG/ML 100 ML INFUS..BTL IV (12:08)
--- NOTE | 2020-10-03 12:22 | CA_ITS ---
Transthoracic Echocardiogram Patient (Last, First, Middle): Cruz Ryan L Gender: Male Date of : 1960 Age: 60 Procedure Date: 10/03/2020 Procedure Type: Transthoracic Echocardiogram Location: [facility] [place] Height: 177.8 cm Weight: 95.26 kg BSA: 2.13 m2 Heart Rate: bpm BP: 132 / 73 mmHg Rv Service Technician: DSG Referring MD: Rosemary Giles MD Symptoms: NSTEMI Study Quality: Good ECG Rhythm: Sinus Conclusions: - The left ventricular systolic function is low normal. The visually estimated ejection fraction is between 50-55%. - No obvious valvular pathology seen on this study. Findings Left Ventricle Normal left ventricular cavity size. There is normal left ventricular wall thickness. The left ventricular systolic function is low normal. The visually estimated ejection fraction is between 50-55%. The calculated ejection fraction is 54% by biplane method. There is no evidence of regional wall motion abnormalities. E/E prime ratio is <8, consistent with normal filling pressures. Evidence suggests grade I (mild) diastolic dysfunction. Right Ventricle Normal right ventricular cavity size and systolic function. Atria The left atrium is normal in size. The right atrium is normal in size. Aortic Valve There is a normal trileaflet aortic valve. There is no aortic valve stenosis. There is no aortic valve regurgitation. Mitral Valve The mitral valve appears normal. There is trace mitral valve regurgitation. There is no mitral valve stenosis. Pulmonic Valve The pulmonic valve was not well visualized. Tricuspid Valve Normal tricuspid valve structure. There is trace tricuspid valve regurgitation. The pulmonary artery systolic pressure is normal. Great Vessels The aortic annulus, sinuses of valsalva, asc aorta, and aortic arch are normal in size. Venous The inferior vena cava is normal in size and collapses greater than 50% with inspiration. Pericardium/Pleural There is no evidence of pericardial effusion. Prior Study Comparison No significant change compared to prior study dated: 04/03/2019. Recommendations, Care & Conclusions No obvious valvular pathology seen on this study. Measurements 2D Linear Measurements IVSd: 1.13 0.6-0.9/0.6-1.0 cm LVIDd: 5.47 3.9-5.3/4.2-5.9 cm LVIDd Index: 2.57 2.4-3.2/2.2-3.1 cm/m2 LVIDs: 3.66 2.0-3.6 cm LVPWd: 0.85 0.7-1.1 cm Ao Root: 3.20 2.1-3.5 cm LA Diam: 4.40 2.7-3.8/3.0-4.0 cm LAIDs Index: 2.07 1.5-2.3 cm/m2 LV Mass: 259.82 67-162/88-224 g LV Mass Index: 121.98 43-95/49-115 g/m2 LVOT Diam: 2.10 3.0+(-)1.3 cm 2D Systolic Function EF 4C: 58.30 >55% EF 2C: 48.00 >55% EF BiP: 53.80 >55% Mitral Valve MV Pk E: 0.51 MV PK A: 0.54 MV Decel Time: 141.00 E/A: 0.90 E'Lateral: 6.96 E'Medial: 4.84 E/E' Med: 10.50 E/E' Lat: 7.30 PHT: 41.00 MVA PHT: 5.37 Decel [place]: 3.62 Aortic Valve AoV Pk Tano: 1.02 AoV Pk Grad: 4.00 LVOT LVOT Pk Tano: 0.86 LVOT Mn [place]: 0.60 LVOT VTI: 0.18 LVOT Pk Grad: 3.00 LVOT Mn Grad: 2.00 LVOT Diam: 2.10 LVOT Area: 3.46 Diastolic Function MV Pk E: 0.51 MV Pk A: 0.54 E/A: 0.90 E'Medial: 4.84 E/E' Med: 10.50 E' Laterial: 6.96 E/E' Lat: 7.30 Tricuspid Valve TR Pk [place]ano: 1.90 TR Pk Grad: 14.00 RA Press: 3.00 RVSP: 17.00 Great Vessels Aorta Ao Root-2D: 3.20 2.0-3.7 cm Ao Asc: 3.50 2.1-3.4 cm Ao Arch: 3.30 Updated in Other Vendor System with Status of Final Devin Sousa MD electronically signed on 10/03/2020 4:53:02 PM with status of Final
[2020-10-03] MEDS: 0.9 % Sodium Chloride Flush 3 ML SYRINGE IVFLUSH ×2 (13:36→15:40)
[2020-10-03 13:38] LABS: Glucose, Whole Blood 94 mg/dL (60-115)
[2020-10-03 13:38] LABS: MANUAL DIFF FLAG NO
[2020-10-03 13:41] LABS: Basophils Absolute Auto 0.1 X10*3/uL (0.0-0.2); Basophils Percent Auto 0.5 % (0-2); Eosinophils Absolute Auto 0.2 X10*3/uL (0.0-0.4); Eosinophils Percent Auto 2.5 % (0-4); Hematocrit 40.5 % (42-52); Hemoglobin 13.2 g/dl (14.0-18.0); Imm Gran Abs Auto 0.03 X10*3/uL (0.00-0.03); Imm Gran Pct Auto 0.3 % (0.0-0.4); Lymphocytes Absolute Auto 2.6 X10*3/uL (1.2-4.9); Lymphocytes Percent Auto 28.1 % (20-40); Mean Corpuscular HGB Conc 32.6 g/dl (31.0-36.0); Mean Corpuscular Hemoglobin 27.7 pg (27.0-33.0); Mean Corpuscular Volume 84.9 fL (80-98); Mean Platelet Volume 8.6 fL (9.4-12.4); Monocytes Absolute Auto 0.7 X10*3/uL (0.1-1.2); Monocytes Percent Auto 7.9 % (2-11); Neutrophils Absolute Auto 5.5 X10*3/uL (2.0-8.3); Neutrophils Percent Auto 60.7 % (45-73); Platelet Count 322 X10*3/uL (160-400); Red Blood Count 4.77 X10*6/uL (4.60-5.80); Red Cell Distribution Width 14.6 % (11.0-16.0); White Blood Count 9.1 X10*3/uL (4.8-10.8)
[2020-10-03] MEDS: Enoxaparin Sodium 100 MG/ML SYRINGE 95 MG SUBCUT (13:43)
[2020-10-03] MEDS: Omeprazole 20 MG CAPSULE.DR PO (13:44)
[2020-10-03 14:20] LABS: Blood Urea Nitrogen 12 mg/dL (9-16)
[2020-10-03 14:21] LABS: Anion Gap 14 (12-20); Blood Urea Nitrogen 12 mg/dL (9-16); Calcium 8.7 mg/dL (8.4-10.2); Carbon Dioxide 26 mmol/L (22-29); Chloride 105 mmol/L (96-108); Creatinine Clr Calc Pharmacy 110.9; Estimated Glomerular Filt Rate > 60; Glucose Random 89 mg/dL (60-115); Potassium 4.1 mmol/l (3.3-5.1); Sodium 141 mmol/L (135-145)
[2020-10-03 14:28] LABS: Troponin-I High Sensitivity 12.6 ng/L (<3.5-35.0)
[2020-10-03 16:15] LABS: Glucose, Whole Blood 107 mg/dL (60-115)
--- NOTE | 2020-10-03 17:07 | P.EN_ITS ---
Event Note Date of Service: 10/03/20 Event Note: 60-year-old male with history of smoking presented with chest p ain that started 3 weeks before on and off associated with left arm numbness and sweating in the ER found to have mildly elevated troponin patient seen and examined at bedside Still reporting some discomfort on exam alert abdomen soft CVS rate and rhythm regular admitted with chest pain rule out ACS troponin mildly elevated with flat trend, monitor on telemetry seen by Cardiology plan for echocardiogram today and stress test tomorrow see H&P from today for more details
[2020-10-03 20:26] LABS: Glucose, Whole Blood 113 mg/dL (60-115)
[2020-10-03] MEDS: Insulin Glargine,Hum.rec.anlog 100 UNIT/ML 10 ML VIAL 42 UNIT SUBCUT (22:00)
--- NOTE | 2020-10-04 | CA_ITS ---
Acquisition Time: 2020-10-04 11:13:36 Total Exercise Time: 00:06:35 Test Indications: Chest Pain Medications: SEE EMAR Protocol: KEVIN Max HR: 153 BPM 95% of Pred: 160 BPM Max BP: 182/094 mmHG Max Work Load: 7.8 METS Exercise nuclear stress test using Kevin protocol, total of 6 min 35 sec. METS7.8, THR up to 95%. Pt reports burning like warm sensation in L upper chest, at peak exercise, he reports warm like feeling. some SOB. EKG without arrhythmias. ST depression in lateral and inferior leads. ST elevation mild changes in septal leads. EKG done. However the chest pain was reproducable. Nuclear images to follow. Normotensive response to exercise. Test reviewed with DR. Sousa. Referred By: Devin Sousa Overread By: Joy Ji
[2020-10-04] MEDS: 0.9 % Sodium Chloride Flush 3 ML SYRINGE IVFLUSH ×2 (00:26→08:25)
[2020-10-04] MEDS: Enoxaparin Sodium 100 MG/ML SYRINGE 95 MG SUBCUT ×2 (02:02→16:01)
[2020-10-04 03:55] VITALS: BP 146/83; PULSE 84; RESP 18; TEMP 36.7; O2SAT 98
[2020-10-04 06:16] LABS: Hematocrit 41.6 % (42-52); Hemoglobin 13.4 g/dl (14.0-18.0); Mean Corpuscular HGB Conc 32.2 g/dl (31.0-36.0); Mean Corpuscular Hemoglobin 27.1 pg (27.0-33.0); Mean Platelet Volume 9.4 fL (9.4-12.4); Platelet Count 349 X10*3/uL (160-400); Red Blood Count 4.95 X10*6/uL (4.60-5.80); Red Cell Distribution Width 14.5 % (11.0-16.0); White Blood Count 10.2 X10*3/uL (4.8-10.8)
[2020-10-04 06:28] LABS: INTERNATIONAL NORM RATIO 1.1 (0.9-1.1); Prothrombin Time 12.5 SEC (10.8-13.0)
[2020-10-04 08:00] VITALS: BP 159/95; PULSE 74; RESP 20; TEMP 36.6; O2SAT 99
[2020-10-04 08:06] LABS: Glucose, Whole Blood 125 mg/dL (60-115)
[2020-10-04] MEDS: Omeprazole 20 MG CAPSULE.DR PO (08:23)
[2020-10-04] MEDS: Aspirin Enteric Coated 81 MG TABLET.DR PO (08:23)
[2020-10-04] MEDS: Acetaminophen 325 MG TABLET 650 MG PO (08:25)
--- NOTE | 2020-10-04 09:00 | NM_ITS ---
EXERCISE MYOCARDIAL PERFUSION STUDY INDICATION: Chest pain, assess for coronary disease and ischemia TECHNIQUE: The patient was brought in for an exercise perfusion study on 10/04/2020. Patient performed exercise as per Mayank protocol and was injected 41 mCi of sestamibi once target heart rate was achieved. Images were obtained using the SPECT gamma camera interlaced with the gating device. Images were obtained in supine position. Resting perfusion study was performed on 10/04/2020. Patient was administered 14 mCi of sestamibi intravenously at rest. Images were then obtained in supine position. Total DLP 69mGy-cm. Images were processed with the software and compared side to side in short axis, horizontal long axis and vertical long axis views. FINDINGS: Raw images were reviewed. The stress perfusion study showed diminished tracer uptake along the inferior wall. With CT attenuation correction, there is improved uptake in this area suggestive of diaphragmatic attenuation artifact. There is slight perfusion defect in the distal anterior septum which is seen in both stress as well as rest acquisition. The gated study shows low normal LV systolic function with calculated LVEF of 50%. LV cavity is normal in size. The gated study shows normal wall thickening and contraction of segments. Resting study shows mildly diminished tracer uptake in the basal inferior septum. Improvement with CT attenuation correction suggestive of diaphragmatic attenuation artifact. Gating at rest reveals normal wall motion with ejection fraction at 56%. The findings are consistent with reversible inferior perfusion defect suspected to be from diaphragmatic attenuation artifact; small distal anterior septal defect that could be artifactual and less likely representing ischemia. NM/NM cassy perf SPECT rest & str IMPRESSION: 1. Myocardial perfusion imaging study shows reversible inferior defect suspected to be from diaphragmatic attenuation artifact; small distal anteroseptal defect with reversible and fixed components that could be artifactual, and less likely to represent true ischemia. 2. Gated LVEF is 50% during stress and 56% during rest. 3. Transient ischemic dilatation not present. EKG component of the test reported separately.
--- NOTE | 2020-10-04 10:41 | PM.PNCARD ---
Subjective Subjective Interval history: He states that he is feeling better. He did get some chest pain but not as profound as before. Review of Systems Review of Systems Cardiac-positive for chest pain but somewhat atypical for angina; negative for shortness of breath; negative for palpitations or dizzy spells or syncopal episodes. Yes all other systems are reviewed and are negative Physical Exam Vital Signs: Last Vital Signs Temp 92 F L 10/03/20 08:00 Pulse 65 10/03/20 08:00 Resp 18 10/03/20 08:00 BP 124/70 10/03/20 08:00 Pulse Ox 99 10/03/20 08:00 Body Mass Index 30.1 Comfortable, no distress No pallor, icterus or cyanosis HEENT -unremarkable JVD- normal Cardiac- normal heart sounds, no murmurs, gallops or rubs, normal PMI Respiratory-normal breath sounds bilaterally, no crackles, no wheeze Abdomen- soft, nontender Neuro- alert and oriented Lower extremities- no significant edema, warm well perfused Results Labs and Meds Result diagrams: 10/04/20 05:21 10/03/20 13:29 Lab results: Laboratory Results - last 24 hr 10/03/20 10/03/20 10/03/20 13:29 13:29 13:29 WBC 9.1 RBC 4.77 Hgb 13.2 L Hct 40.5 L MCV 84.9 MCH 27.7 MCHC 32.6 RDW 14.6 Plt Count 322 MPV 8.6 L Immature Gran % (Auto) 0.3 Neut % (Auto) 60.7 Lymph % (Auto) 28.1 [place] % (Auto) 7.9 Eos % (Auto) 2.5 Baso % (Auto) 0.5 Lymph # (Auto) 2.6 [place] # (Auto) 0.7 Eos # (Auto) 0.2 Baso # (Auto) 0.1 Abs Immat Gran (auto) 0.03 Absolute Neuts (auto) 5.5 Absolute Nucleated RBC 0.000 Nucleated RBC % (auto) 0.0 PT INR Sodium 141 Potassium 4.1 Chloride 105 Carbon Dioxide 26 Anion Gap 14 BUN 12 Creatinine 0.82 Estim Creat Clear Calc 110.9 Estimated GFR > 60 POC Glucose Random Glucose 89 Calcium 8.7 Troponin I High Sens Cancelled 10/03/20 10/03/20 10/03/20 13:29 13:29 13:34 WBC RBC Hgb Hct MCV MCH MCHC RDW Plt Count MPV Immature Gran % (Auto) Neut % (Auto) Lymph % (Auto) [place] % (Auto) Eos % (Auto) Baso % (Auto) Lymph # (Auto) [place] # (Auto) Eos # (Auto) Baso # (Auto) Abs Immat Gran (auto) Absolute Neuts (auto) Absolute Nucleated RBC Nucleated RBC % (auto) PT INR Sodium Potassium Chloride Carbon Dioxide Anion Gap BUN 12 Creatinine Estim Creat Clear Calc Estimated GFR POC Glucose 94 Random Glucose Calcium Troponin I High Sens 12.6 D 10/03/20 10/03/20 10/04/20 16:09 20:22 05:21 WBC 10.2 RBC 4.95 Hgb 13.4 L Hct 41.6 L MCV 84.0 MCH 27.1 MCHC 32.2 RDW 14.5 Plt Count 349 MPV 9.4 Immature Gran % (Auto) Neut % (Auto) Lymph % (Auto) [place] % (Auto) Eos % (Auto) Baso % (Auto) Lymph # (Auto) [place] # (Auto) Eos # (Auto) Baso # (Auto) Abs Immat Gran (auto) Absolute Neuts (auto) Absolute Nucleated RBC 0.000 Nucleated RBC % (auto) 0.0 PT INR Sodium Potassium Chloride Carbon Dioxide Anion Gap BUN Creatinine Estim Creat Clear Calc Estimated GFR POC Glucose 107 113 Random Glucose Calcium Troponin I High Sens 10/04/20 10/04/20 05:21 08:00 WBC RBC Hgb Hct MCV MCH MCHC RDW Plt Count MPV Immature Gran % (Auto) Neut % (Auto) Lymph % (Auto) [place] % (Auto) Eos % (Auto) Baso % (Auto) Lymph # (Auto) [place] # (Auto) Eos # (Auto) Baso # (Auto) Abs Immat Gran (auto) Absolute Neuts (auto) Absolute Nucleated RBC Nucleated RBC % (auto) PT 12.5 INR 1.1 Sodium Potassium Chloride Carbon Dioxide Anion Gap BUN Creatinine Estim Creat Clear Calc Estimated GFR POC Glucose 125 H Random Glucose Calcium Troponin I High Sens Progress Note: A&P Assessment and plan (1) Precordial chest pain: Status: Acute (2) Elevated troponin: Status: Acute (3) Atherosclerotic cardiovascular disease: Status: Acute (4) Type 2 diabetes mellitus with unspecified complications: Status: Acute (5) Essential hypertension: Status: Acute (6) Smoking: Status: Acute Assessment and Plan: Cardiac catheterization data reviewed. This was performed 03/2019. Left main was normal. Mild luminal irregularities only in the LAD and circumflex and 40% stenosis in the midsection of RCA. Overall, no obstructive disease noted. Uncertain etiology for his current symptoms. Echocardiogram with low-normal LVEF but otherwise unremarkable. Stress test to be performed. Fall Risk Details Current Medications: Current Medications Generic Name Dose Route Start Last Admin Trade Name Freq PRN Reason Stop Dose Admin Acetaminophen 650 mg 10/04/20 08:15 10/04/20 08:25 Acetaminophen 325 Mg Tablet PO 650 mg Q6H PRN Administration Headache Aspirin 81 mg 10/04/20 09:00 10/04/20 08:23 Aspirin Enteric Coated 81 Mg Tablet. PO 81 mg DAILY CELSO Administration Enoxaparin Sodium 95 mg 10/03/20 14:00 10/04/20 02:02 Enoxaparin Sodium 100 Mg/Ml Syringe 1 mg/kg (95 mg) 95 mg SUBCUT Administration Q12H [facility] Insulin Glargine 42 unit 10/03/20 21:00 10/03/20 22:00 Insulin Glargine,Hum.Rec.Anlog 100 Unit/Ml 10 Ml Vial SUBCUT 42 unit BEDTIME CELSO Administration Insulin Human Lispro 0 unit 10/03/20 12:22 10/04/20 08:30 Insulin Lispro 100 Unit/Ml 3 Ml Vial SUBCUT 10/04/20 12:22 Not Given QIDACHS [facility] Protocol Omeprazole 20 mg 10/03/20 13:15 10/04/20 08:23 Omeprazole 20 Mg Capsule. PO 20 mg DAILY CELSO Administration Sodium Chloride 3 ml 10/03/20 12:22 10/04/20 08:25 0.9 % Sodium Chloride Flush 3 Ml Syringe IVFLUSH 3 ml QSHIFT CELSO Administration Time Spent With Patient Time: Total time spent is greater than 50% in coordination of care (as documented) at patient's floor/unit and/or counseling patient: Time with patient: 15 - 24 minutes Procedures Abscess I/D Date of Service: 10/04/20
--- NOTE | 2020-10-04 13:23 | MHC.CM.PN ---
CM met with patient at the bedside who reports his son lives with him and he is independent, no services in the home. Patient does not have a HCP and declines filling one out after being educated. Discussed discharge plan, home no services. Patient's son Cruz [phone] will provide transportation. CM will continue to follow for discharge needs.
[2020-10-04 13:47] LABS: INTERNATIONAL NORM RATIO 1.1 (0.9-1.1); Prothrombin Time 12.9 SEC (10.8-13.0)
[2020-10-04 14:17] VITALS: BMI 30.1
--- NOTE | 2020-10-04 14:21 | ECG_ITS ---
Test Reason : CP Blood Pressure : / mmHG Vent. Rate : 080 BPM Atrial Rate : 080 BPM P-R Int : 154 ms QRS Dur : 126 ms QT Int : 400 ms P-R-T Axes : 063 -24 109 degrees QTc Int : 461 ms Normal sinus rhythm Left ventricular hypertrophy with QRS widening Nonspecific T wave abnormality Abnormal ECG No significant changes seen Referred By: Margy Lr Electronically Signed By:ADRIENNE JOHNS MD
--- NOTE | 2020-10-04 15:45 | PM.DS ---
DS: Providers Provider Date of admission: 10/03/20 03:41 Primary care physician: Unknown Physician Consults: 10/03/20 12:22 Consult to Cardiology Routine Consulting Provider: [facility] [place] [facility] Services Reason for consultation: NSTEMI Has provider been notified: No DS: Diagnosis Discharge Diagnosis (1) Precordial chest pain: Status: Resolved (2) Elevated troponin: Status: Resolved (3) Atherosclerotic cardiovascular disease: Status: Acute (4) Type 2 diabetes mellitus with unspecified complications: Status: Acute (5) Essential hypertension: Status: Acute (6) Smoking: Status: Acute DS: Medications Discharge Medications Home Medications: Home Medications Medication Instructions Recorded Confirmed Lantus Solostar U-100 Insulin 42 unit SUBCUT BEDTIME 10/03/20 10/03/20 aspirin 81 mg DAILY 10/03/20 10/03/20 metformin 1,000 mg BID 10/03/20 10/03/20 omega-3 fatty acids PO BID 10/03/20 omeprazole 20 mg DAILY 10/03/20 10/03/20 Previous Rx's Medication Instructions Recorded aspirin 81 mg PO DAILY #30 tab 10/04/20 atorvastatin [Lipitor] 40 mg PO BEDTIME #30 tab 10/04/20 metoprolol succinate [Toprol XL] 50 mg PO DAILY #30 tab 10/04/20 DS: Summary Hospital Course Hospital Course: 75-year-old male admitted with chest pain with mildly elevated high sensitivity troponin admitted to rule out NSTEMI, patient was seen by Cardiology recommended Lovenox , echocardiogram was done shows EF 55-60%, CT PA chest was done shows no pulmonary embolus, patient underwent stress test, stress test was negative, cardiology recommended starting on aspirin statin and Lopressor, chest pain resolved, patient was stable discharged home on aspirin statin and Lopressor, patient will follow up cardiology as outpatient Time Spent with Patient Time attestation: Total time spent providing and/or coordinating discharge services: Physical Exam Vital Signs: Vital Signs: Last Vital Signs Temp 97.8 F 10/04/20 08:00 Pulse 74 10/04/20 08:00 Resp 20 10/04/20 08:00 BP 159/95 H 10/04/20 08:00 Pulse Ox 99 10/04/20 08:00 Body Mass Index 30.1 Const: Other: Last Vital Signs Temp 97.8 F 10/04/20 08:00 Pulse 74 10/04/20 08:00 Resp 20 10/04/20 08:00 BP 159/95 H 10/04/20 08:00 Pulse Ox 99 10/04/20 08:00 Body Mass Index 30.1 Cardio: Other: Last Vital Signs Temp 97.8 F 10/04/20 08:00 Pulse 74 10/04/20 08:00 Resp 20 10/04/20 08:00 BP 159/95 H 10/04/20 08:00 Pulse Ox 99 10/04/20 08:00 Body Mass Index 30.1 DS: Data Data Completed and Pending Labs on day of discharge: 10/02/20 20:59 ECG 12 lead EKG Stat EKG Documentation DIRECTED XR chest 1V Stat 10/02/20 21:16 Complete Blood Count Auto Diff Stat Comprehensive Met. Panel Stat Lipase Stat Troponin-I High Sensitivity Stat 10/02/20 21:17 D Dimer Stat Hold Lt Blue - Possible Coag Stat 10/02/20 23:08 Add Laboratory Test Stat 10/03/20 CT angio chest PE protocol Stat 10/03/20 01:08 Troponin-I High Sensitivity Routine 10/03/20 02:22 Enoxaparin Sodium [Lovenox] 95 mg SUBCUT ONCE ONE 10/03/20 02:27 Aspirin 324 mg PO ONCE ONE 10/03/20 02:31 Add Laboratory Test Stat 10/03/20 02:51 COVID-19 ID NOW (Lopez) Stat 10/03/20 03:38 Transfer Order Routine 10/03/20 05:23 Partial Thromboplastin Time Stat Prothrombin Time INR Stat 10/03/20 Breakfast Diabetic Diet 10/03/20 12:07 iohexoL 350 MG/ML [Omnipaque 350 MG/ML] 100 ml IV ONCE ONE 10/03/20 12:22 Insulin Lispro [Humalog] See Protocol SUBCUT QIDACHS 10/03/20 12:22 CA echo transthoracic complete Routine 10/03/20 13:29 Basic Metabolic Panel Routine Blood Urea Nitrogen Stat Complete Blood Count Auto Diff Routine Troponin-I High Sensitivity Routine 10/03/20 13:34 Glucose, Whole Blood Routine 10/03/20 16:09 Glucose, Whole Blood Routine 10/03/20 20:22 Glucose, Whole Blood Routine 10/04/20 CA stress test Routine 10/04/20 05:21 Complete Blood Count no Diff DAILY@0600 Prothrombin Time INR DAILY@0600 10/04/20 08:00 Glucose, Whole Blood Routine 10/04/20 09:00 NM cassy perf SPECT rest & str Routine 10/04/20 Breakfast NPO Diet 10/04/20 13:19 Prothrombin Time INR Routine 10/04/20 14:21 ECG 12 lead EKG Stat Laboratory Last Values WBC 10.2 X10*3/uL (4.8-10.8) 10/04/20 05:21 RBC 4.95 X10*6/uL (4.60-5.80) 10/04/20 05:21 Hgb 13.4 g/dl (14.0-18.0) L 10/04/20 05:21 Hct 41.6 % (42-52) L 10/04/20 05:21 MCV 84.0 fL (80-98) 10/04/20 05:21 MCH 27.1 pg (27.0-33.0) 10/04/20 05:21 MCHC 32.2 g/dl (31.0-36.0) 10/04/20 05:21 RDW 14.5 % (11.0-16.0) 10/04/20 05:21 Plt Count 349 X10*3/uL (160-400) 10/04/20 05:21 MPV 9.4 fL (9.4-12.4) 10/04/20 05:21 Immature Gran % (Auto) 0.3 % (0.0-0.4) 10/03/20 13:29 Neut % (Auto) 60.7 % (45-73) 10/03/20 13:29 Lymph % (Auto) 28.1 % (20-40) 10/03/20 13:29 [place] % (Auto) 7.9 % (2-11) 10/03/20 13:29 Eos % (Auto) 2.5 % (0-4) 10/03/20 13:29 Baso % (Auto) 0.5 % (0-2) 10/03/20 13:29 Lymph # (Auto) 2.6 X10*3/uL (1.2-4.9) 10/03/20 13:29 [place] # (Auto) 0.7 X10*3/uL (0.1-1.2) 10/03/20 13:29 Eos # (Auto) 0.2 X10*3/uL (0.0-0.4) 10/03/20 13:29 Baso # (Auto) 0.1 X10*3/uL (0.0-0.2) 10/03/20 13:29 Abs Immat Gran (auto) 0.03 X10*3/uL (0.00-0.03) 10/03/20 13:29 Absolute Neuts (auto) 5.5 X10*3/uL (2.0-8.3) 10/03/20 13:29 Absolute Nucleated RBC 0.000 X10*3/uL (0.0-0.012) 10/04/20 05:21 Nucleated RBC % (auto) 0.0 /100WBC (0.0-0.2) 10/04/20 05:21 PT 12.9 SEC (10.8-13.0) 10/04/20 13:19 INR 1.1 (0.9-1.1) 10/04/20 13:19 APTT 48.1 SEC (24.1-38.0) H D 10/03/20 05:23 D-Dimer < 200 NG/ML 10/02/20 21:17 Hold Blue Top SEE NOTE 10/02/20 21:17 Sodium 141 mmol/L (135-145) 10/03/20 13:29 Potassium 4.1 mmol/l (3.3-5.1) 10/03/20 13:29 Chloride 105 mmol/L (96-108) 10/03/20 13:29 Carbon Dioxide 26 mmol/L (22-29) 10/03/20 13:29 Anion Gap 14 (12-20) 10/03/20 13:29 BUN 12 mg/dL (9-16) 10/03/20 13:29 BUN 12 mg/dL (9-16) 10/03/20 13:29 Creatinine 0.82 mg/dL (0.5-1.4) 10/03/20 13:29 Estim Creat Clear Calc 110.9 10/03/20 13:29 Estimated GFR > 60 10/03/20 13:29 POC Glucose 125 mg/dL (60-115) H 10/04/20 08:00 Random Glucose 89 mg/dL (60-115) 10/03/20 13:29 Calcium 8.7 mg/dL (8.4-10.2) 10/03/20 13:29 Total Bilirubin 0.5 mg/dL (0.0-1.0) 10/02/20 21:16 AST 31 U/L (5-37) 10/02/20 21:16 ALT 28 U/L (0-40) 10/02/20 21:16 Alkaline Phosphatase 71 U/L (39-117) 10/02/20 21:16 Troponin I High Sens 12.6 ng/L (<3.5-35.0) D 10/03/20 13:29 Troponin I High Sens Cancelled 10/03/20 13:29 Total Protein 7.5 g/dL (6.5-8.0) 10/02/20 21:16 Albumin 4.1 g/dL (3.5-5.0) 10/02/20 21:16 Lipase 19 U/L (8-78) 10/02/20 21:16 COVID-19 (MJ) Negative (Negative) 10/03/20 02:51 COVID-19 Clin Com See Note 10/03/20 02:51 Discharge Plan Discharge Anticipated Discharge Date/Time: 10/04/20 15:35 Patient Disposition: Home, Self-Care Referrals: Leeroy Cai MD [Physician] - Devin Sousa MD [Physician] - (chest pain) Physician,Unknown [Primary Care Provider] - Discharge Medications: New aspirin 81 mg tablet,delayed release (DR/EC) 81 mg PO DAILY Qty: 30 RF: 0 metoprolol succinate [Toprol XL] 50 mg tablet extended release 24 hr 50 mg PO DAILY Qty: 30 RF: 0 atorvastatin [Lipitor] 40 mg tablet 40 mg PO BEDTIME Qty: 30 RF: 0 Continued omeprazole 20 mg Capsule,Delayed Release(Dr/Ec) 20 mg DAILY RF: 0 metformin 1,000 mg Tablet 1,000 mg BID RF: 0 omega-3 fatty acids Capsule PO BID RF: 0 Lantus Solostar U-100 Insulin 100 unit/mL (3 mL) Insulin Pen 42 unit SUBCUT BEDTIME RF: 0 Discontinued aspirin 81 mg DAILY RF: 0 Discharge Orders: Discharge Order (Routine); Ordered 10/04/20 Ordered By: Leeroy Cai Diet: advance to usual diet Activity on Discharge: As tolerated Discharge Date/Time: 10/04/20 16:16 Visit Report Forms: Patient Portal Discharge page Care Plan Goals: see discharge instruction Health Concerns: see discharge instructions Plan of Treatment: see discharge instructions
== END 2020-10-04 16:16 | disposition home or self-care (01) | DRG 313 ==
LOC: HO.ED 10-03 02:20 → HO.IMC 10-03 10:50
PROVIDERS: Admitting Provider Internal Medicine; Emergency Provider Student in an Organized Health Care Education/Training Program; Visit Provider Internal Medicine
DX: R07.9 Chest pain, unspecified (principal); F17.210 Nicotine dependence, cigarettes, uncomplicated; E78.5 Hyperlipidemia, unspecified; Z71.6 Tobacco abuse counseling; E11.9 Type 2 diabetes mellitus without complications; I25.10 Atherosclerotic heart disease of native coronary artery without angina pectoris; I10 Essential (primary) hypertension; Z20.828 Contact with and (suspected) exposure to other viral communicable diseases; Z86.73 Personal history of transient ischemic attack (TIA), and cerebral infarction without residual deficits; Z79.4 Long term (current) use of insulin; Z79.82 Long term (current) use of aspirin; Z79.899 Other long term (current) drug therapy
CPT/HCPCS: 36415; 71045; 71275; 78452; 80048; 80053; 82947; 83690; 84484; 84520; 85025; 85027; 85379; 85610; 85730; 87635; 93005; 93017; 93306; 96372; 99284; 99285; A9500; J1650; Q9967

== ENCOUNTER → 2020-10-23 09:52 | Outpatient (BNVA) | payer MEDICARE, OTHER, SELFPAY | PROVIDERS: PCP Internal Medicine; Visit Provider Nurse Practitioner Family | DX: I25.10 Atherosclerotic heart disease of native coronary artery without angina pectoris (principal); I10 Essential (primary) hypertension; E11.8 Type 2 diabetes mellitus with unspecified complications; R07.9 Chest pain, unspecified; F17.200 Nicotine dependence, unspecified, uncomplicated; Z98.890 Other specified postprocedural states | CPT/HCPCS: 99212 ==

== ENCOUNTER → 2021-01-21 10:03 | Outpatient (BNVA) | payer MEDICARE, OTHER, SELFPAY | PROVIDERS: PCP Internal Medicine; Visit Provider Nurse Practitioner Family | DX: R07.9 Chest pain, unspecified (principal); I25.10 Atherosclerotic heart disease of native coronary artery without angina pectoris; I10 Essential (primary) hypertension; E11.8 Type 2 diabetes mellitus with unspecified complications; F17.200 Nicotine dependence, unspecified, uncomplicated; Z98.890 Other specified postprocedural states; Z79.899 Other long term (current) drug therapy; Z71.6 Tobacco abuse counseling | CPT/HCPCS: 93005; 99212 ==

== ENCOUNTER 2021-02-01 09:59 | Inpatient (IN) | payer MEDICARE, OTHER, SELFPAY ==
[2021-02-01] VITALS (10 sets, daily range): BP systolic 125–142; BP diastolic 65–91; PULSE 71–90; RESP 16–19; TEMP 36.7–36.9; O2SAT 97–100; BMI 29.2
--- NOTE | 2021-02-01 | ECG_ITS ---
Test Reason : CP Blood Pressure : / mmHG Vent. Rate : 087 BPM Atrial Rate : 087 BPM P-R Int : 158 ms QRS Dur : 112 ms QT Int : 374 ms P-R-T Axes : 008 -30 123 degrees QTc Int : 450 ms Sinus rhythm with Premature supraventricular complexes Left axis deviation Incomplete left bundle branch block Left ventricular hypertrophy with repolarization abnormality Abnormal ECG When compared with ECG of 04-OCT-2020 11:13, Premature supraventricular complexes are now Present T wave amplitude has increased in Inferior leads Referred By: Joyce Keller Electronically Signed By:KARISSA LIGHT MD
--- NOTE | ~2021-02-01 | XR_ITS ---
EXAMINATION: XR CHEST CLINICAL INFORMATION: Chest pain COMPARISON: Chest radiograph from 10/02/2020 TECHNIQUE: Frontal view of the chest was obtained. FINDINGS: There is no focal consolidation. There is no pneumothorax. The trachea is midline. The cardiac mediastinal silhouette is not enlarged. Aorta demonstrates tortuosity with atherosclerotic calcifications. There is no pleural effusion. Degenerative changes of the thoracolumbar spine. Soft tissues are unremarkable. XR/XR chest 1V IMPRESSION: No acute cardiac pulmonary process.
[2021-02-01 10:52] LABS: MANUAL DIFF FLAG NO
[2021-02-01 10:56] LABS: Basophils Percent Auto 0.1 % (0-2); Hematocrit 40.3 % (42-52); Hemoglobin 12.9 g/dl (14.0-18.0); Imm Gran Abs Auto 0.12 X10*3/uL (0.00-0.03); Imm Gran Pct Auto 0.7 % (0.0-0.4); Lymphocytes Absolute Auto 1.4 X10*3/uL (1.2-4.9); Lymphocytes Percent Auto 7.7 % (20-40); Mean Corpuscular Hemoglobin 27.5 pg (27.0-33.0); Mean Corpuscular Volume 85.9 fL (80-98); Mean Platelet Volume 9.4 fL (9.4-12.4); Monocytes Percent Auto 5.6 % (2-11); Neutrophils Absolute Auto 15.6 X10*3/uL (2.0-8.3); Neutrophils Percent Auto 85.9 % (45-73); Platelet Count 339 X10*3/uL (160-400); Red Blood Count 4.69 X10*6/uL (4.60-5.80); Red Cell Distribution Width 14.6 % (11.0-16.0); White Blood Count 18.1 X10*3/uL (4.8-10.8)
[2021-02-01 11:36] LABS: Anion Gap 16 (12-20); Blood Urea Nitrogen 19 mg/dL (9-16); Calcium 9.6 mg/dL (8.4-10.2); Carbon Dioxide 25 mmol/L (22-29); Chloride 103 mmol/L (96-108); Creatinine Clr Calc Pharmacy 86.4; Estimated Glomerular Filt Rate > 60; Glucose Random 366 mg/dL (60-115); Potassium 3.9 mmol/L (3.3-5.1); Sodium 140 mmol/L (135-145); Troponin-I High Sensitivity 51.6 ng/L (<3.5-35.0)
--- NOTE | 2021-02-01 11:50 | ED.CHESTPAIN ---
HPI - Chest Pain General Source: patient Mode of arrival: ambulatory Limitations: no limitations History of Present Illness HPI narrative: Patient is a 60-year-old male with a past medical history of HTN, T2DM, ACD with hx of cardiac cath 04/02 and is a current smoker presents complaining of chest pain and dizziness since getting a cortisone injection in his neck yesterday afternoon. He was admitted to this hospital October 03 for similar complaints and to rule out an NSTEMI. At that time, echocardiogram showed EF 55-60%, stress test was negative and patient was started on aspirin, a statin and Lopressor. Today, patient states his chest pain starts in the left side and goes down his left arm down his right arm and ?all over ?, he states he has shortness of breath, headache, dizziness and ?everything ?. He states he has been taking all his medications including the new ones that were started in September. He denies any nausea vomiting or diarrhea or fevers. He states he has been eating normally. Related Data Home Medications Medication Instructions Recorded Confirmed Lantus Solostar U-100 Insulin 42 unit SUBCUT BEDTIME 10/03/20 02/01/21 metformin 1,000 mg BID 10/03/20 02/01/21 omega-3 fatty acids PO BID 10/03/20 01/21/21 omeprazole 20 mg DAILY 10/03/20 02/01/21 amlodipine 1 tab PO QAM 02/01/21 02/01/21 lisinopril 1 tab PO QAM 02/01/21 02/01/21 morphine 1 tab PO Q12H 02/01/21 02/01/21 oxycodone-acetaminophen 1 tab PO Q8H PRN 02/01/21 02/01/21 Previous Rx's Medication Instructions Recorded metoprolol succinate 50 mg 50 mg PO DAILY #30 tab 11/14/20 tablet,extended release 24 hr aspirin 81 mg tablet,delayed 81 mg PO BEDTIME #30 tab 11/25/20 release atorvastatin 40 mg tablet 40 mg PO BEDTIME #30 tab 11/25/20 heparin(porcine) in 0.45% NaCl 25,000 unit CONTINUOUS IV INFUSION 02/03/21 .Q0M 1 Days ml nitroglycerin [Nitro-Bid] 1 inch TRANSDERMAL RQ6H WHILE 02/03/21 AWAKE 1 Days g Allergies Allergy/AdvReac Type Severity Reaction Status Date / Time No Known Allergies Allergy Verified 02/01/21 10:07 [No Known Allergies*] Review of Systems Review of Systems: Yes all other systems are reviewed and are negative PMFSH Past Medical History Medical History Atherosclerotic cardiovascular disease Chest pain in adult Diabetes Essential hypertension HTN (hypertension) Smoking Type 2 diabetes mellitus with unspecified complications Surgical History History of cardiac cath (~03/2019) Family History Family History Father No problems noted. Mother Leukemia HTN (hypertension) Social History Social History Household Members: Family Housing: House Alcohol intake: current Alcohol intake frequency: a few times a week Smoking Status: Current every day smoker Tobacco Type: Cigarette Packs Per Day: 0.25 Cigarettes Per Day: 4 Second Hand Smoke Exposure: No Substance Use Type: Marijuana service: No Current occupational status: unemployed Physical Exam Vital Signs: Vital Signs: Last Vital Signs Temp 97.9 F 02/03/21 11:25 Pulse 78 02/03/21 11:25 Resp 18 02/03/21 11:25 BP 148/79 H 02/03/21 11:25 Pulse Ox 99 02/03/21 11:25 Body Mass Index 29.2 Const: General: cooperative, healthy appearing, comfortable and no acute distress Nutritional Appearance: well nourished Orientation/consciousness: patient oriented x3 Limitations: no limitations HENMT: Head: Yes normal to inspection, Yes normocephalic and Yes atraumatic Eyes: General: appearance normal, both eyes and all related structures Resp: Effort & Inspection: normal respiratory effort and able to speak in complete sentences Auscultation: clear to auscultation bilaterally Cardio: Rate: regular rate Rhythm: regular rhythm Heart sounds: normal S1 and S2 GI: Inspection: Yes normal to inspection Palpation (GI): Soft to palpation and nontender Skin: Other: No signs of infection noted at Cortisone injection site on the central upper back Neuro: General: patient oriented x3 Extrem: General: Yes normal to inspection and Yes no pedal edema Course Course Course Narrative: Patient is a 60-year-old male with a past medical history of HTN, T2DM, ACD with hx of cardiac cath 04/02 and is a current smoker presents complaining of chest pain and dizziness since getting a cortisone injection in his neck yesterday afternoon. VSS, physical exam unremarkable, patient very well-appearing and nontoxic. Chest x-ray negative. Reevaluation(s) Reevaluation #1: CXR negative, WBC elevated at 18.1, trop 51.6, pending second trop, UA not done yet as pt dropped it in the toilet, EKG new LBBB, Time: 13:15 Reevaluation #2: Second trop 90.1 which is >50% change. NTEMI, call placed for Cards, Dr Spencer. Time: 14:00 Reevaluation #3: Spoke with Dr. Spencer, he advised give patient nitro paste, metoprolol, heparin bolus and heparin drip, trend troponins x2 days. Texted hospitalist for admission. Reviewed all of this information with the patient and answered all of his questions. Pt to be admitted. MDM - Chest Pain Medical Records Data Attestation: I reviewed the patient's medical records. Lab Data Attestation: I reviewed the patient's lab results. Result diagrams: 02/02/21 05:03 02/02/21 02:44 Labs: Lab Results 02/01/21 02/01/21 02/01/21 Range/Units 10:33 10:33 10:33 WBC 18.1 H (4.8-10.8) X10*3/uL RBC 4.69 (4.60-5.80) X10*6/uL Hgb 12.9 L (14.0-18.0) g/dl Hct 40.3 L (42-52) % MCV 85.9 (80-98) fL MCH 27.5 (27.0-33.0) pg MCHC 32.0 (31.0-36.0) g/dl RDW 14.6 (11.0-16.0) % Plt Count 339 (160-400) X10*3/uL MPV 9.4 (9.4-12.4) fL Immature Gran % (Auto) 0.7 H (0.0-0.4) % Neut % (Auto) 85.9 H (45-73) % Lymph % (Auto) 7.7 L (20-40) % [place] % (Auto) 5.6 (2-11) % Eos % (Auto) 0.0 (0-4) % Baso % (Auto) 0.1 (0-2) % Lymph # (Auto) 1.4 (1.2-4.9) X10*3/uL [place] # (Auto) 1.0 (0.1-1.2) X10*3/uL Eos # (Auto) 0.0 (0.0-0.4) X10*3/uL Baso # (Auto) 0.0 (0.0-0.2) X10*3/uL Abs Immat Gran (auto) 0.12 H (0.00-0.03) X10*3/uL Absolute Neuts (auto) 15.6 H (2.0-8.3) X10*3/uL Absolute Nucleated RBC 0.000 (0.0-0.012) X10*3/uL Nucleated RBC % (auto) 0.0 (0.0-0.2) /100WBC PT 12.7 (10.8-13.0) SEC INR 1.1 (0.9-1.1) PTT (Heparin Protocol) (53-77.9) SEC Hold Blue Top SEE NOTE Sodium 140 (135-145) mmol/L Potassium 3.9 (3.3-5.1) mmol/L Chloride 103 (96-108) mmol/L Carbon Dioxide 25 (22-29) mmol/L Anion Gap 16 (12-20) BUN 19 H D (9-16) mg/dL Creatinine 1.07 (0.5-1.4) mg/dL Estim Creat Clear Calc 86.4 Estimated GFR > 60 Random Glucose 366 H* (60-115) mg/dL Calcium 9.6 D (8.4-10.2) mg/dL Troponin I High Sens (<3.5-35.0) ng/L COVID-19 (MJ) (Negative) COVID-19 Clin Com 02/01/21 02/01/21 02/01/21 Range/Units 10:33 12:23 14:07 WBC 20.8 H (4.8-10.8) X10*3/uL RBC 4.50 L (4.60-5.80) X10*6/uL Hgb 12.6 L (14.0-18.0) g/dl Hct 38.4 L (42-52) % MCV 85.3 (80-98) fL MCH 28.0 (27.0-33.0) pg MCHC 32.8 (31.0-36.0) g/dl RDW 14.5 (11.0-16.0) % Plt Count 322 (160-400) X10*3/uL MPV 9.0 L (9.4-12.4) fL Immature Gran % (Auto) (0.0-0.4) % Neut % (Auto) (45-73) % Lymph % (Auto) (20-40) % [place] % (Auto) (2-11) % Eos % (Auto) (0-4) % Baso % (Auto) (0-2) % Lymph # (Auto) (1.2-4.9) X10*3/uL [place] # (Auto) (0.1-1.2) X10*3/uL Eos # (Auto) (0.0-0.4) X10*3/uL Baso # (Auto) (0.0-0.2) X10*3/uL Abs Immat Gran (auto) (0.00-0.03) X10*3/uL Absolute Neuts (auto) (2.0-8.3) X10*3/uL Absolute Nucleated RBC 0.000 (0.0-0.012) X10*3/uL Nucleated RBC % (auto) 0.0 (0.0-0.2) /100WBC PT (10.8-13.0) SEC INR (0.9-1.1) PTT (Heparin Protocol) (53-77.9) SEC Hold Blue Top Sodium (135-145) mmol/L Potassium (3.3-5.1) mmol/L Chloride (96-108) mmol/L Carbon Dioxide (22-29) mmol/L Anion Gap (12-20) BUN (9-16) mg/dL Creatinine (0.5-1.4) mg/dL Estim Creat Clear Calc Estimated GFR Random Glucose (60-115) mg/dL Calcium (8.4-10.2) mg/dL Troponin I High Sens 51.6 H D 90.7 H D (<3.5-35.0) ng/L COVID-19 (MJ) (Negative) COVID-19 Clin Com 02/01/21 02/01/21 Range/Units 14:07 14:07 WBC (4.8-10.8) X10*3/uL RBC (4.60-5.80) X10*6/uL Hgb (14.0-18.0) g/dl Hct (42-52) % MCV (80-98) fL MCH (27.0-33.0) pg MCHC (31.0-36.0) g/dl RDW (11.0-16.0) % Plt Count (160-400) X10*3/uL MPV (9.4-12.4) fL Immature Gran % (Auto) (0.0-0.4) % Neut % (Auto) (45-73) % Lymph % (Auto) (20-40) % [place] % (Auto) (2-11) % Eos % (Auto) (0-4) % Baso % (Auto) (0-2) % Lymph # (Auto) (1.2-4.9) X10*3/uL [place] # (Auto) (0.1-1.2) X10*3/uL Eos # (Auto) (0.0-0.4) X10*3/uL Baso # (Auto) (0.0-0.2) X10*3/uL Abs Immat Gran (auto) (0.00-0.03) X10*3/uL Absolute Neuts (auto) (2.0-8.3) X10*3/uL Absolute Nucleated RBC (0.0-0.012) X10*3/uL Nucleated RBC % (auto) (0.0-0.2) /100WBC PT (10.8-13.0) SEC INR (0.9-1.1) PTT (Heparin Protocol) 33.2 L (53-77.9) SEC Hold Blue Top Sodium (135-145) mmol/L Potassium (3.3-5.1) mmol/L Chloride (96-108) mmol/L Carbon Dioxide (22-29) mmol/L Anion Gap (12-20) BUN (9-16) mg/dL Creatinine (0.5-1.4) mg/dL Estim Creat Clear Calc Estimated GFR Random Glucose (60-115) mg/dL Calcium (8.4-10.2) mg/dL Troponin I High Sens (<3.5-35.0) ng/L COVID-19 (MJ) Negative (Negative) COVID-19 Clin Com See Note ECG Data ECG #1: Attestation: I personally reviewed and interpreted this ECG as follows: ECG interpretation date: 02/01/21 Ischemic changes: acute NSTEMI Interpretation: Sinus rhythm with Premature supraventricular complexes Left axis deviation Incomplete left bundle branch block Left ventricular hypertrophy with repolarization abnormality Abnormal ECG Discharge Plan Discharge Clinical Impression: Non-ST elevation myocardial infarction (NSTEMI) Patient Disposition: Admitted As Inpatient Interventions: Admission Worksheet (ED) Last Done: 02/01/21 18:57 Discharge Date/Time: 02/01/21 18:58
--- NOTE | 2021-02-01 12:07 | PC.NURSE ---
PT AMBULATED TO BR W/ EVEN STEADY GAIT TO PROVIDE URINE SAMPLE, PT STS ACCIDENTALLY DROPPED CUP INTO TOILET BOWL LOSING SAMPLE.
--- NOTE | 2021-02-01 13:00 | PC.NURSE ---
PT S/F IN BED DRINKING WATER, RR EVEN UNLABORED, SKIN WPD, NAD, NSR ON TELE. PT STS HAD CORTISONE INJECTION IN NECK YESTERDAY, SINCE THEN HAS BEEN HAVING CHEST PAIN, L ARM PAIN, HEADACHE, SOB, DIZZINESS, PER PT I HAVE EVERYTHING . PT RESTING COMFORTABLY IN BED, AWAITING LAB RESULTS, PT AWARE/AGREEABLE TO PLAN OF CARE.
[2021-02-01 13:11] LABS: Troponin-I High Sensitivity 90.7 ng/L (<3.5-35.0)
[2021-02-01 14:07] LABS: INTERNATIONAL NORM RATIO 1.1 (0.9-1.1); Prothrombin Time 12.7 SEC (10.8-13.0)
[2021-02-01 14:12] LABS: Hematocrit 38.4 % (42-52); Hemoglobin 12.6 g/dl (14.0-18.0); Mean Corpuscular HGB Conc 32.8 g/dl (31.0-36.0); Mean Corpuscular Volume 85.3 fL (80-98); Platelet Count 322 X10*3/uL (160-400); Red Cell Distribution Width 14.5 % (11.0-16.0); White Blood Count 20.8 X10*3/uL (4.8-10.8)
[2021-02-01] MEDS: Nitroglycerin 2 % Oint 1 GM Packet 0.5 INCH TRANSDERMA (14:15)
[2021-02-01] MEDS: Heparin Sodium,Porcine 5,000 UNIT/ML VIAL 3800 UNIT IVPUSH ×2 (14:16→21:13)
[2021-02-01] MEDS: Heparin Sodium,Porcine/1/2NS 25,000 UNIT/250 ML IV.SOLN 10 UNIT IVCONT (14:21)
[2021-02-01 14:27] LABS: PTT Heparin Drip 33.2 SEC (53-77.9)
[2021-02-01 14:28] LABS: COVID-19 Test Negative (Negative)
--- NOTE | 2021-02-01 14:52 | P.HPHOSP_ITS ---
History of Present Illness Date of Service: 02/01/21 Chief Complaint: Chest pain 60 -year-old man presented to the ER with complaints of chest pain. He reports he woke up at 06:00 this morning and felt midsternal chest pressure and burningthat lasted about 15 minutes. He reports that it resolved on its own. He reports then at 09:00 this morning he was sitting eating breakfast and again experience the same discomfort. He reported radiation to both his arms and hands with some nausea and dizziness. He was able to lay down and he felt better. He had a cardiac catheterization in March 2019. Did show mild luminal irregularities only the LAD and circumflex and 40% stenosis in the mid section of the RCA. He also had a stress test in September of 2020 which is essentially unremarkable. Today in the ER EKG did show some changes new incomplete bundle branch block, troponin 51.6 with repeat of 90.7. He was started on IV heparin drip, given Zofran, nitroglycerin. Patient at this time is pain free. He be admitted for further management treatment of NSTEMI. Review of Systems Review of Systems: Denies any recent fever chills or decrease in appetite respiratory denies any shortness of breath coverage production cardiovascular See HPI gastrointestinal denies any dysphagia abdominal pain nausea vomiting or diarrhea genitourinary denies any dysuria frequency or hematuria musculoskeletal denies any joint pain or swelling neuropsych denies any weakness or seizures all other systems reviewed are negative [facility] Medical History Atherosclerotic cardiovascular disease Chest pain in adult Diabetes Essential hypertension HTN (hypertension) Smoking Type 2 diabetes mellitus with unspecified complications Family History Father No problems noted. Mother Leukemia HTN (hypertension) Surgical History History of cardiac cath (~03/2019) Social History Household Members: Children Housing: House Alcohol intake: current Alcohol intake frequency: a few times a week Smoking Status: Current every day smoker Tobacco Type: Cigarette Packs Per Day: 0.25 Cigarettes Per Day: 5.0 Second Hand Smoke Exposure: No Substance Use Type: Marijuana Advance Directives: No Advance Directives Information Provided: No service: No Current occupational status: unemployed Meds Allergies Allergy/AdvReac Type Severity Reaction Status Date / Time No Known Allergies Allergy Verified 02/01/21 10:07 [No Known Allergies*] Active Medications: Current Medications Generic Name Dose Route Start Last Admin Trade Name Freq PRN Reason Stop Dose Admin Heparin Sodium (Porcine) 3,800 unit 02/01/21 13:50 02/01/21 14:16 Heparin Sodium,Porcine 5,000 Unit/Ml Vial 40 unit/kg (3800 unit) 3,800 unit IVPUSH Administration BOLUS PRN 40 unit/kg - Heparin Protocol Heparin Sodium/Sodium Chloride 25,000 unit in 250 mls @ 0 mls/hr 02/01/21 14:00 02/01/21 14:21 IVCONT 10.5 units/kg/hr .Q0M CELSO 10 mls/hr Administration Protocol Per Protocol Pharmacy Consult 1 each 02/01/21 13:54 Consult Rx Perform Med Rec MISCELLANE ONCE PRN Consult order Home Medications Medication Instructions Recorded Confirmed Last Taken Type Lantus Solostar U-100 Insulin 42 unit SUBCUT BEDTIME 10/03/20 02/01/21 10/02/20 History metformin 1,000 mg BID 10/03/20 02/01/21 10/02/20 History omega-3 fatty acids PO BID 10/03/20 01/21/21 10/02/20 History omeprazole 20 mg DAILY 10/03/20 02/01/21 10/02/20 History amlodipine 1 tab PO QAM 02/01/21 02/01/21 Unknown History lisinopril 1 tab PO QAM 02/01/21 02/01/21 Unknown History morphine 1 tab PO Q12H 02/01/21 02/01/21 Unknown History oxycodone-acetaminophen 1 tab PO Q8H PRN 02/01/21 02/01/21 Unknown History Physical Exam Vital Signs and Narrative: Vital Signs: Last Vital Signs Temp 98.1 F 02/01/21 13:42 Pulse 79 02/01/21 14:15 Resp 16 02/01/21 13:42 BP 142/86 H 02/01/21 14:15 Pulse Ox 99 02/01/21 13:42 Body Mass Index 29.2 Appearing in no acute distress head is normocephalic atraumatic eyes pupils are PERRLA sclera is anicteric mouth throat mucous membranes are intact and moist neck is supple no lymphadenopathy, no JVD noted lung sounds are clear to auscultation heart regular rate rhythm, clear S1, S2 positive bowel sounds, abdomen is soft, nontender neuro patient is alert x3, no focal deficits Results Labs CBC and Chem 7: 02/01/21 14:07 02/01/21 10:33 Labs: Laboratory Results - last 24 hr 02/01/21 02/01/21 02/01/21 10:33 10:33 10:33 MCV 85.9 MCH 27.5 MCHC 32.0 RDW 14.6 Plt Count 339 MPV 9.4 Immature Gran % (Auto) 0.7 H Neut % (Auto) 85.9 H Lymph % (Auto) 7.7 L [place] % (Auto) 5.6 Eos % (Auto) 0.0 Baso % (Auto) 0.1 Lymph # (Auto) 1.4 [place] # (Auto) 1.0 Eos # (Auto) 0.0 Baso # (Auto) 0.0 Abs Immat Gran (auto) 0.12 H Absolute Neuts (auto) 15.6 H Absolute Nucleated RBC 0.000 Nucleated RBC % (auto) 0.0 PT 12.7 INR 1.1 PTT (Heparin Protocol) Hold Blue Top SEE NOTE Anion Gap 16 Estim Creat Clear Calc 86.4 Estimated GFR > 60 Random Glucose 366 H* Calcium 9.6 D Troponin I High Sens COVID-19 (MJ) COVID-19 Clin Com 02/01/21 02/01/21 02/01/21 10:33 12:23 14:07 MCV 85.3 MCH 28.0 MCHC 32.8 RDW 14.5 Plt Count 322 MPV 9.0 L Immature Gran % (Auto) Neut % (Auto) Lymph % (Auto) [place] % (Auto) Eos % (Auto) Baso % (Auto) Lymph # (Auto) [place] # (Auto) Eos # (Auto) Baso # (Auto) Abs Immat Gran (auto) Absolute Neuts (auto) Absolute Nucleated RBC 0.000 Nucleated RBC % (auto) 0.0 PT INR PTT (Heparin Protocol) Hold Blue Top Anion Gap Estim Creat Clear Calc Estimated GFR Random Glucose Calcium Troponin I High Sens 51.6 H D 90.7 H D COVID-19 (MJ) COVID-19 Clin Com 02/01/21 02/01/21 14:07 14:07 MCV MCH MCHC RDW Plt Count MPV Immature Gran % (Auto) Neut % (Auto) Lymph % (Auto) [place] % (Auto) Eos % (Auto) Baso % (Auto) Lymph # (Auto) [place] # (Auto) Eos # (Auto) Baso # (Auto) Abs Immat Gran (auto) Absolute Neuts (auto) Absolute Nucleated RBC Nucleated RBC % (auto) PT INR PTT (Heparin Protocol) 33.2 L Hold Blue Top Anion Gap Estim Creat Clear Calc Estimated GFR Random Glucose Calcium Troponin I High Sens COVID-19 (MJ) Negative COVID-19 Clin Com See Note Imaging Radiologist's Impressions: Impressions Chest X-Ray 02/01/21 10:30 IMPRESSION: No acute cardiac pulmonary process. Assessment and Plan (1) NSTEMI (non-ST elevated myocardial infarction): Status: Acute 60 year old man admitted with chest pain with history of CAD. He had a stress test in 10/04 without overt findings and cardiac cath in 2018 that was relatively unremarkable. EKG today showing new LBBB and elevated troponin. NSTEMI. Symptoms sounds typical, New LBBB on EKG. -IV heparin -Aspirin, statin, BB -Cardiology to follow -May need cardiac cath Diabetes. Elevated -Sliding scale, ADA diet -Hold metformin for now Hypertension. Stable BP -Continue Lisinopril, amlodipine GERD. PPI DVT prophylaxis with IV Heparin Attending: Dr. Shi Full code
[2021-02-01] MEDS: lisinopriL 40 MG TABLET PO (16:37)
[2021-02-01] MEDS: amLODIPine Besylate 5 MG TABLET PO (16:37)
[2021-02-01] MEDS: 0.9 % Sodium Chloride Flush 3 ML SYRINGE IVFLUSH (16:40)
--- NOTE | 2021-02-01 17:30 | P.EN_ITS ---
Event Note Date of Service: 02/02/21 Event Note: addendum to H+P by DARIO Keller I interviewed and examined the patient. I discussed their presentation and management with the mid-level provider. I reviewed the history and physical and agree with the documentation, with the following additions and corrections: 60yo M with HTN, DM2, tobacco abuse c/o chest pressure waking him from sleep at 0600 this am. Character was squeezing/pressure and intensity was severe. Episode lasted 10 but resolved spontaneously. He had another episode, more severe, radiating to his left>right arm at 0900 while eating breakfast. This was relived by rest but lasted approx 40 . He is followed by [facility] [place] Cardiology and per their notes: - cardiac cath March 2019: left main was normal. Mild luminal irregularities only in the LAD and circumflex and 40% stenosis in the midsection of RCA. Overall, no obstructive disease noted. - stress test Sep 2020: Stress testing without any overt findings. Inferior reversible defect suspected to be from diaphragmatic artifact. There is also small distal anteroseptal defect that appears artifactual. He is currently chest-pain free. On exam: lungs clear, CV RRR no murmurs, noedema. EKG with new incomplete LBBB. Hs-Tn-I 51.6->90.7. Plan: admit to telemetry, heparinize, give ASA, metoprolol high-intensity statin, and consult Cardiology
[2021-02-01 19:04] LABS: Troponin-I High Sensitivity 298.5 ng/L (<3.5-35.0)
--- NOTE | 2021-02-01 20:00 | ECG_ITS ---
Test Reason : nstemi Blood Pressure : / mmHG Vent. Rate : 072 BPM Atrial Rate : 072 BPM P-R Int : 150 ms QRS Dur : 116 ms QT Int : 390 ms P-R-T Axes : 055 -22 133 degrees QTc Int : 427 ms Sinus rhythm with Premature atrial complexes Left ventricular hypertrophy with QRS widening and repolarization abnormality Abnormal ECG When compared with ECG of 01-FEB-2021 10:08, No significant change was found Referred By: Kiran Shi Electronically Signed By:MEL BLANCO
[2021-02-01 20:42] LABS: Glucose, Whole Blood 354 mg/dL (60-115)
[2021-02-01 20:59] LABS: Troponin-I High Sensitivity 285.4 ng/L (<3.5-35.0)
[2021-02-01] MEDS: Morphine Sulfate ER 30 MG TABLET.ER PO (21:13)
[2021-02-01] MEDS: Atorvastatin Calcium 40 MG TABLET PO (21:13)
[2021-02-01] MEDS: Aspirin Enteric Coated 81 MG TABLET.DR PO (21:13)
[2021-02-01] MEDS: Insulin Glargine,Hum.rec.anlog 100 UNIT/ML 10 ML VIAL 42 UNIT SUBCUT (21:14)
[2021-02-02] VITALS (7 sets, daily range): BP systolic 117–143; BP diastolic 67–78; PULSE 65–77; RESP 16–18; TEMP 36.4–37; O2SAT 97–99
--- NOTE | 2021-02-02 | ECG_ITS ---
Test Reason : NSTEMi Blood Pressure : / mmHG Vent. Rate : 072 BPM Atrial Rate : 072 BPM P-R Int : 166 ms QRS Dur : 134 ms QT Int : 384 ms P-R-T Axes : 048 -19 130 degrees QTc Int : 420 ms Sinus rhythm with Premature atrial complexes Left ventricular hypertrophy with QRS widening and repolarization abnormality Abnormal ECG When compared with ECG of 02-FEB-2021 09:45, No significant change was found Referred By: Kiran Shi Electronically Signed By:MEL BLANCO
[2021-02-02] MEDS: Calcium Carbonate 750 MG TAB.CHEW PO (00:10)
[2021-02-02 03:34] LABS: Anion Gap 13 (12-20); Blood Urea Nitrogen 16 mg/dL (9-16); Calcium 9.3 mg/dL (8.4-10.2); Carbon Dioxide 26 mmol/L (22-29); Chloride 105 mmol/L (96-108); Cholesterol 119 mg/dL; Creatinine Clr Calc Pharmacy 102.8; Estimated Glomerular Filt Rate > 60; Glucose Random 249 mg/dL (60-115); HDL Cholesterol 41 mg/dL; LDL Cholesterol Calculated 66 mg/dl; Potassium 4.1 mmol/L (3.3-5.1); Sodium 140 mmol/L (135-145); Triglycerides 63 mg/dL
[2021-02-02 03:38] LABS: PTT Heparin Drip 64.5 SEC (53-77.9)
[2021-02-02] MEDS: Morphine Sulfate ER 30 MG TABLET.ER PO ×2 (05:19→16:47)
[2021-02-02] MEDS: Omeprazole 20 MG CAPSULE.DR PO (05:20)
[2021-02-02 05:52] LABS: MANUAL DIFF FLAG NO
[2021-02-02 05:59] LABS: Basophils Percent Auto 0.1 % (0-2); Hematocrit 37.1 % (42-52); Hemoglobin 12.2 g/dl (14.0-18.0); Imm Gran Abs Auto 0.07 X10*3/uL (0.00-0.03); Imm Gran Pct Auto 0.4 % (0.0-0.4); Lymphocytes Percent Auto 12.4 % (20-40); Mean Corpuscular HGB Conc 32.9 g/dl (31.0-36.0); Mean Corpuscular Hemoglobin 27.6 pg (27.0-33.0); Mean Corpuscular Volume 83.9 fL (80-98); Mean Platelet Volume 9.5 fL (9.4-12.4); Monocytes Absolute Auto 0.9 X10*3/uL (0.1-1.2); Monocytes Percent Auto 5.4 % (2-11); Neutrophils Absolute Auto 13.1 X10*3/uL (2.0-8.3); Neutrophils Percent Auto 81.7 % (45-73); Platelet Count 316 X10*3/uL (160-400); Red Blood Count 4.42 X10*6/uL (4.60-5.80); Red Cell Distribution Width 14.6 % (11.0-16.0)
[2021-02-02 06:32] LABS: INTERNATIONAL NORM RATIO 1.1 (0.9-1.1); Prothrombin Time 12.8 SEC (10.8-13.0)
[2021-02-02 07:47] LABS: Glucose, Whole Blood 237 mg/dL (60-115)
[2021-02-02] MEDS: amLODIPine Besylate 5 MG TABLET PO (08:26)
[2021-02-02] MEDS: lisinopriL 40 MG TABLET PO (08:26)
[2021-02-02] MEDS: Metoprolol Succinate ER 50 MG TAB.ER.24H PO (08:27)
[2021-02-02] MEDS: Insulin Lispro 100 UNIT/ML 3 ML VIAL SUBCUT ×4 (08:30→20:31)
[2021-02-02] MEDS: Heparin Sodium,Porcine/1/2NS 25,000 UNIT/250 ML IV.SOLN 11.91 UNIT IVCONT (09:27)
[2021-02-02 10:19] LABS: PTT Heparin Drip 53.7 SEC (53-77.9)
--- NOTE | 2021-02-02 11:07 | PC.NURSE ---
EKG done,result sent to Dr Shi via [employer].
[2021-02-02 11:39] LABS: Glucose, Whole Blood 250 mg/dL (60-115)
--- NOTE | 2021-02-02 12:04 | P.CONCA_ITS ---
History of Present Illness History of Present Illness Date of Service: 02/02/21 Consult reason: other (Acute coronary syndrome) Chief complaint: Chest pain NSTEMI Narrative: We were asked to see Cruz chest discomfort and elevated troponin. He is a 60-year-old man with prior history of nonobstructive coronary artery disease by cardiac catheterization in March of 2019, hypertension diabetes presents to the hospital with chest pain. He said over the last few months he has been getting precordial chest discomfort she describes as pressure, happens with activity including climbing flights of stairs or walking or with sometimes doing heavy work at home. He also gets symptoms while he is driving or when he is excited. He got cervical spine injection because of disc issues and pain in his left arm with numbness on Wednesday. Subsequently on Wednesday morning he said he started noticing precordial chest discomfort at 06:00. Symptoms lasted for about 10 minutes. He did not pay much attention to it symptoms subsided. Subsequently at 09:00 he got much more severe symptoms radiating to his neck and felt like his chest was cracking. He felt sick and therefore decided to come to the emergency room. This symptoms lasted for about 20 minutes. When he came to the emergency room EKG showed incomplete left bundle-branch block with some nonspecific T-wave changes. His initial troponin was 51.6 then went up to 90.7 and then subsequently to 298.5. This morning troponins are down trending. He said he had minor chest discomfort this morning with subsided very quickly by themselves. He has been started appropriately on IV heparin after discussion with me. He is currently also getting aspirin, high-intensity statins and metoprolol. Review of Systems Constitutional: Constitutional: Reports no additional constitutional compla ints Cardiovascular: Cardiovascular: Reports chest pain at rest, Reports chest pain with activity, Denies lightheadedness, Denies Loss of Consciousness, Reports radiating jaw, neck or arm pain and Denies palpitations Respiratory: Respiratory: Reports no additional respiratory complaints Gastrointestinal: Gastrointestinal: Reports no additional gastrointestinal complaints Genitourinary: Genitourinary: Reports no additional male genitourinary complaints Musculoskeletal: Musculoskeletal: Reports no additional musculoskeletal complaints Neurologic: Reports system reviewed and no additional complaints, except as documented Psychiatric: Psychiatric: Reports no additional psychiatric complaints Endocrine: Endocrine: Reports no additional endocrine complaints and Denies palpitations Hematologic/Lymphatic: Hematologic/Lymphatic: Reports no additional hematologic/lymphatic complaints PMFSH Past Medical History Medical History Atherosclerotic cardiovascular disease Chest pain in adult Diabetes Essential hypertension HTN (hypertension) Smoking Type 2 diabetes mellitus with unspecified complications Family History Family History Father No problems noted. Mother Leukemia HTN (hypertension) Surgical History Surgical History History of cardiac cath (~03/2019) Social History Social History Household Members: Family Housing: House Do you presently have visiting nurse or other home services: No Alcohol intake: current Alcohol intake frequency: a few times a week Smoking Status: Current every day smoker Tobacco Type: Cigarette Packs Per Day: 0.25 Cigarettes Per Day: 4 Smoked in Last 30 Days: Yes Patient Interested in Nicotine Replacement: No (Not at this time) Second Hand Smoke Exposure: No Use of substances other than those prescribed or required for medical reasons: Yes Substance Use Type: Marijuana Substance Use Frequency: Daily Currently Displaying Signs/Symptoms of Drug Intoxication Withdrawal: No Have you been hit, kicked, punched, or otherwise hurt by someone within the past year? If so, by whom?: No Do you feel safe in your current relationship?: Yes Is there a partner from a previous relationship who is making you feel unsafe now?: No Are you made to feel afraid or neglected: No Advance Directives: No Advance Directives Information Provided: No Do you have thoughts of harming others: None Do you have a plan to hurt others: No Plan Recently lost weight without trying: Yes service: No Current occupational status: unemployed Meds Allergies Allergy/AdvReac Type Severity Reaction Status Date / Time No Known Allergies Allergy Verified 02/01/21 10:07 [No Known Allergies*] Active Medications: Current Medications Generic Name Dose Route Start Last Admin Trade Name Freq PRN Reason Stop Dose Admin Acetaminophen 650 mg 02/01/21 15:00 Acetaminophen 325 Mg Tablet PO Q6H PRN Pain, Mild (Pain Scale 1-3) Amlodipine Besylate 5 mg 02/01/21 16:00 02/02/21 08:26 Amlodipine Besylate 5 Mg Tablet PO 5 mg DAILY CELSO Administration Protocol Aspirin 81 mg 02/01/21 21:00 02/01/21 21:13 Aspirin Enteric Coated 81 Mg Tablet. PO 81 mg BEDTIME CELSO Administration Atorvastatin Calcium 40 mg 02/01/21 21:00 02/01/21 21:13 Atorvastatin Calcium 40 Mg Tablet PO 40 mg BEDTIME CELSO Administration Calcium Carbonate 750 mg 02/01/21 23:53 02/02/21 00:10 Calcium Carbonate 750 Mg Tab.Chew PO 750 mg Q6H PRN Administration Heartburn Heparin Sodium (Porcine) 3,800 unit 02/01/21 20:57 02/01/21 21:13 Heparin Sodium,Porcine 5,000 Unit/Ml Vial 40 unit/kg (3800 unit) 3,800 unit IVPUSH Administration BOLUS PRN 40 unit/kg - Heparin Protocol Heparin Sodium/Sodium Chloride 25,000 unit in 250 mls @ 0 mls/hr 02/01/21 14:00 02/02/21 10:51 IVCONT 12.5 units/kg/hr .Q0M CELSO 11.91 mls/hr Titration Protocol Per Protocol Insulin Glargine 46 unit 02/02/21 21:00 Insulin Glargine,Hum.Rec.Anlog 100 Unit/Ml 10 Ml Vial SUBCUT BEDTIME [facility] Insulin Human Lispro 0 unit 02/02/21 07:30 02/02/21 08:30 Insulin Lispro 100 Unit/Ml 3 Ml Vial SUBCUT 4 unit QIDACHS [facility] Administration Protocol Lisinopril 40 mg 02/01/21 16:00 02/02/21 08:26 Lisinopril 40 Mg Tablet PO 40 mg DAILY CELSO Administration Protocol Metoprolol Succinate 50 mg 02/02/21 09:00 02/02/21 08:27 Metoprolol Succinate Er 50 Mg Tab.Er.24h PO 50 mg DAILY [facility] Administration Protocol Morphine Sulfate 30 mg 02/01/21 18:00 02/02/21 05:19 Morphine Sulfate Er 30 Mg Tablet.Er PO 30 mg Q12H [facility] Administration Nitroglycerin 0.5 inch 02/02/21 14:00 Nitroglycerin 2 % Oint 1 Gm Packet TRANSDERMA 02/03/21 14:01 RQ6H WHILE AWAKE [facility] Omeprazole 20 mg 02/02/21 06:30 02/02/21 05:20 Omeprazole 20 Mg Capsule. PO 20 mg DAILY@0630 [facility] Administration Ondansetron HCl 4 mg 02/01/21 15:00 Ondansetron Hcl 4 Mg/2 Ml Vial IVPUSH Q8H PRN Nausea and Vomiting Oxycodone HCl 5 mg 02/01/21 16:19 Oxycodone Hcl Immed Release 5 Mg Tablet PO Q8H PRN Pain, Moderate (Pain Scale 4-6 Pharmacy Consult 1 each 02/01/21 13:54 Consult Rx Perform Med Rec MISCELLANE ONCE PRN Consult order Sodium Chloride 3 ml 02/01/21 16:00 02/02/21 08:29 0.9 % Sodium Chloride Flush 3 Ml Syringe IVFLUSH Not Given QSHIFT [facility] Home Medications Medication Instructions Recorded Confirmed Last Taken Type Lantus Solostar U-100 Insulin 42 unit SUBCUT BEDTIME 10/03/20 02/01/21 10/02/20 History metformin 1,000 mg BID 10/03/20 02/01/21 10/02/20 History omega-3 fatty acids PO BID 10/03/20 01/21/21 10/02/20 History omeprazole 20 mg DAILY 10/03/20 02/01/21 10/02/20 History amlodipine 1 tab PO QAM 02/01/21 02/01/21 Unknown History lisinopril 1 tab PO QAM 02/01/21 02/01/21 Unknown History morphine 1 tab PO Q12H 02/01/21 02/01/21 Unknown History oxycodone-acetaminophen 1 tab PO Q8H PRN 02/01/21 02/01/21 Unknown History Physical Exam Vital Signs: Vital Signs: Last Vital Signs Temp 97.7 F 02/02/21 07:58 Pulse 65 02/02/21 08:27 Resp 18 02/02/21 07:58 BP 143/78 H 02/02/21 08:27 Pulse Ox 99 02/02/21 07:58 Body Mass Index 29.2 Const: General: cooperative, comfortable, no acute distress, alert and awake Nutritional Appearance: overweight Orientation/consciousness: patient oriented x3 Limitations: no limitations HENMT: Head: Yes normocephalic and Yes atraumatic Neck: Neck: Yes trachea midline, Yes supple and Yes no JVD Resp: Effort & Inspection: normal respiratory effort Auscultation: clear to auscultation bilaterally Cardio: Jugular venous distension: no JVD Palpation: normal PMI Rate: regular rate Rhythm: regular rhythm Heart sounds: S1 normal heart sound present and S2 normal heart sound present GI: Auscultation: normal bowel sounds Skin: General skin exam: no rashes or lesions noted Neuro: General: patient oriented x3 and no focal motor deficits Extrem: General: Yes no clubbing, cyanosis or edema Psych: Appearance: grossly normal Results Labs and Meds Result diagrams: 02/02/21 05:03 02/02/21 02:44 Lab results: Laboratory Results - last 24 hr 02/01/21 02/01/21 02/01/21 10:33 12:23 14:07 WBC 20.8 H RBC 4.50 L Hgb 12.6 L Hct 38.4 L MCV 85.3 MCH 28.0 MCHC 32.8 RDW 14.5 Plt Count 322 MPV 9.0 L Immature Gran % (Auto) Neut % (Auto) Lymph % (Auto) [place] % (Auto) Eos % (Auto) Baso % (Auto) Lymph # (Auto) [place] # (Auto) Eos # (Auto) Baso # (Auto) Abs Immat Gran (auto) Absolute Neuts (auto) Absolute Nucleated RBC 0.000 Nucleated RBC % (auto) 0.0 PT 12.7 INR 1.1 PTT (Heparin Protocol) Sodium Potassium Chloride Carbon Dioxide Anion Gap BUN Creatinine Estim Creat Clear Calc Estimated GFR POC Glucose Random Glucose Calcium Troponin I High Sens 90.7 H D Triglycerides Cholesterol LDL Cholesterol, Calc HDL Cholesterol COVID-19 (MJ) COVID-19 Clin Com 02/01/21 02/01/21 02/01/21 14:07 14:07 18:21 WBC RBC Hgb Hct MCV MCH MCHC RDW Plt Count MPV Immature Gran % (Auto) Neut % (Auto) Lymph % (Auto) [place] % (Auto) Eos % (Auto) Baso % (Auto) Lymph # (Auto) [place] # (Auto) Eos # (Auto) Baso # (Auto) Abs Immat Gran (auto) Absolute Neuts (auto) Absolute Nucleated RBC Nucleated RBC % (auto) PT INR PTT (Heparin Protocol) 33.2 L Sodium Potassium Chloride Carbon Dioxide Anion Gap BUN Creatinine Estim Creat Clear Calc Estimated GFR POC Glucose Random Glucose Calcium Troponin I High Sens 298.5 H D Triglycerides Cholesterol LDL Cholesterol, Calc HDL Cholesterol COVID-19 (MJ) Negative COVID-19 Clin Com See Note 02/01/21 02/01/21 02/01/21 20:22 20:22 20:38 WBC RBC Hgb Hct MCV MCH MCHC RDW Plt Count MPV Immature Gran % (Auto) Neut % (Auto) Lymph % (Auto) [place] % (Auto) Eos % (Auto) Baso % (Auto) Lymph # (Auto) [place] # (Auto) Eos # (Auto) Baso # (Auto) Abs Immat Gran (auto) Absolute Neuts (auto) Absolute Nucleated RBC Nucleated RBC % (auto) PT INR PTT (Heparin Protocol) 41.0 L D Sodium Potassium Chloride Carbon Dioxide Anion Gap BUN Creatinine Estim Creat Clear Calc Estimated GFR POC Glucose 354 H* Random Glucose Calcium Troponin I High Sens 285.4 H Triglycerides Cholesterol LDL Cholesterol, Calc HDL Cholesterol COVID-19 (MJ) COVID-19 Clin Com 02/02/21 02/02/21 02/02/21 02:44 02:45 05:03 WBC 16.0 H RBC 4.42 L Hgb 12.2 L Hct 37.1 L MCV 83.9 MCH 27.6 MCHC 32.9 RDW 14.6 Plt Count 316 MPV 9.5 Immature Gran % (Auto) 0.4 Neut % (Auto) 81.7 H Lymph % (Auto) 12.[address] [place] % (Auto) 5.4 Eos % (Auto) 0.0 Baso % (Auto) 0.1 Lymph # (Auto) 2.0 [place] # (Auto) 0.9 Eos # (Auto) 0.0 Baso # (Auto) 0.0 Abs Immat Gran (auto) 0.07 H Absolute Neuts (auto) 13.1 H Absolute Nucleated RBC 0.000 Nucleated RBC % (auto) 0.0 PT INR PTT (Heparin Protocol) 64.5 D Sodium 140 Potassium 4.1 Chloride 105 Carbon Dioxide 26 Anion Gap 13 BUN 16 Creatinine 0.90 Estim Creat Clear Calc 102.8 Estimated GFR > 60 POC Glucose Random Glucose 249 H Calcium 9.3 Troponin I High Sens Triglycerides 63 Cholesterol 119 LDL Cholesterol, Calc 66 HDL Cholesterol 41 COVID-19 (MJ) COVID-19 Clin Com 02/02/21 02/02/21 02/02/21 05:03 07:21 09:47 WBC RBC Hgb Hct MCV MCH MCHC RDW Plt Count MPV Immature Gran % (Auto) Neut % (Auto) Lymph % (Auto) [place] % (Auto) Eos % (Auto) Baso % (Auto) Lymph # (Auto) [place] # (Auto) Eos # (Auto) Baso # (Auto) Abs Immat Gran (auto) Absolute Neuts (auto) Absolute Nucleated RBC Nucleated RBC % (auto) PT 12.8 INR 1.1 PTT (Heparin Protocol) 53.7 Sodium Potassium Chloride Carbon Dioxide Anion Gap BUN Creatinine Estim Creat Clear Calc Estimated GFR POC Glucose 237 H Random Glucose Calcium Troponin I High Sens Triglycerides Cholesterol LDL Cholesterol, Calc HDL Cholesterol COVID-19 (MJ) COVID-19 Clin Com 02/02/21 11:31 WBC RBC Hgb Hct MCV MCH MCHC RDW Plt Count MPV Immature Gran % (Auto) Neut % (Auto) Lymph % (Auto) [place] % (Auto) Eos % (Auto) Baso % (Auto) Lymph # (Auto) [place] # (Auto) Eos # (Auto) Baso # (Auto) Abs Immat Gran (auto) Absolute Neuts (auto) Absolute Nucleated RBC Nucleated RBC % (auto) PT INR PTT (Heparin Protocol) Sodium Potassium Chloride Carbon Dioxide Anion Gap BUN Creatinine Estim Creat Clear Calc Estimated GFR POC Glucose 250 H Random Glucose Calcium Troponin I High Sens Triglycerides Cholesterol LDL Cholesterol, Calc HDL Cholesterol COVID-19 (MJ) COVID-19 Clin Com Shows normal sinus rhythm with LVH with left axis deviation with incomplete left bundle-branch block with high lateral T-wave inversions which could represent repolarization abnormality Assessment and Plan (1) Acute coronary syndrome: Status: Acute Acute coronary syndrome in a middle-aged man with multiple risk factors with prior nonobstructive CAD with presentation highly typical for acute myocardial ischemia with rising troponin suggestive of myocardial injury. Being treated and currently symptom-free and hemodynamically stable. Continue to treat with IV heparin. Will also add nitro paste to his regimen because of minor chest discomfort this morning as an anti ischemic therapy. Increase Lipitor to 80 mg daily. Continue aspirin and metoprolol, may further intensive 5 metoprolol therapy as an anti ischemic therapy as well. Will require cardiac catheterization. This was discussed with him. He is agreeable to the same. We discussed the risks, benefits, alternatives the 2nd to the procedure. Will arrange transfer to [facility] tomorrow. Obtain an echocardiogram to assess LV systolic and diastolic function for regional wall motion abnormality tomorrow. Will follow the patient. Thank you for allowing us to partake in his care
--- NOTE | 2021-02-02 12:49 | HO.PM.IMPN ---
Subjective Subjective Date of Service: 02/02/21 Interval History: denies further chest pain no dyspnea Physical Exam Vital Signs: Vital Signs: Last Vital Signs Temp 98.3 F 02/02/21 12:00 Pulse 69 02/02/21 12:00 Resp 16 02/02/21 12:00 BP 135/77 02/02/21 12:00 Pulse Ox 98 02/02/21 12:00 Body Mass Index 29.2 Gen: in no acute distress HEENT: sclera anicteric, moist mucus membranes Neck: supple Lungs: clear to auscultation bilaterally Heart: regular rate and rhythm, no murmurs Abd: soft, non-tender, non-distended Ext: no edema Skin: warm/well-perfused Neuro: alert and oriented x3, no focal findings Psych: appropriate affect Objective Data Current Medications Generic Name Dose Route Start Last Admin Trade Name Freq PRN Reason Stop Dose Admin Acetaminophen 650 mg 02/01/21 15:00 Acetaminophen 325 Mg Tablet PO Q6H PRN Pain, Mild (Pain Scale 1-3) Amlodipine Besylate 5 mg 02/01/21 16:00 02/02/21 08:26 Amlodipine Besylate 5 Mg Tablet PO 5 mg DAILY [facility]ELSO Administration Protocol Aspirin 81 mg 02/01/21 21:00 02/01/21 21:13 Aspirin Enteric Coated 81 Mg Tablet.Dr PO 81 mg BEDTIME [facility]SO Administration Atorvastatin Calcium 40 mg 02/01/21 21:00 02/01/21 21:13 Atorvastatin Calcium 40 Mg Tablet PO 40 mg BEDTIME [facility] Administration Calcium Carbonate 750 mg 02/01/21 23:53 02/02/21 00:10 Calcium Carbonate 750 Mg Tab.Chew PO 750 mg Q6H PRN Administration Heartburn Heparin Sodium (Porcine) 3,800 unit 02/01/21 20:57 02/01/21 21:13 Heparin Sodium,Porcine 5,000 Unit/Ml Vial 40 unit/kg (3800 unit) 3,800 unit IVPUSH Administration BOLUS PRN 40 unit/kg - Heparin Protocol Heparin Sodium/Sodium Chloride 25,000 unit in 250 mls @ 0 mls/hr 02/01/21 14:00 02/02/21 10:51 IVCONT 12.5 units/kg/hr .Q0M CELSO 11.91 mls/hr Titration Protocol Per Protocol Insulin Glargine 46 unit 02/02/21 21:00 Insulin Glargine,Hum.Rec.Anlog 100 Unit/Ml 10 Ml Vial SUBCUT BEDTIME [facility] Insulin Human Lispro 0 unit 02/02/21 07:30 02/02/21 12:11 Insulin Lispro 100 Unit/Ml 3 Ml Vial SUBCUT 4 unit QIDACHS [facility] Administration Protocol Lisinopril 40 mg 02/01/21 16:00 02/02/21 08:26 Lisinopril 40 Mg Tablet PO 40 mg DAILY [facility] Administration Protocol Metoprolol Succinate 50 mg 02/02/21 09:00 02/02/21 08:27 Metoprolol Succinate Er 50 Mg Tab.Er.24h PO 50 mg DAILY [facility] Administration Protocol Morphine Sulfate 30 mg 02/01/21 18:00 02/02/21 05:19 Morphine Sulfate Er 30 Mg Tablet.Er PO 30 mg Q12H [facility] Administration Nitroglycerin 0.5 inch 02/02/21 14:00 Nitroglycerin 2 % Oint 1 Gm Packet TRANSDERMA 02/03/21 14:01 RQ6H WHILE AWAKE [facility] Omeprazole 20 mg 02/02/21 06:30 02/02/21 05:20 Omeprazole 20 Mg Capsule. PO 20 mg DAILY@0630 [facility] Administration Ondansetron HCl 4 mg 02/01/21 15:00 Ondansetron Hcl 4 Mg/2 Ml Vial IVPUSH Q8H PRN Nausea and Vomiting Oxycodone HCl 5 mg 02/01/21 16:19 Oxycodone Hcl Immed Release 5 Mg Tablet PO Q8H PRN Pain, Moderate (Pain Scale 4-6 Pharmacy Consult 1 each 02/01/21 13:54 Consult Rx Perform Med Rec MISCELLANE ONCE PRN Consult order Sodium Chloride 3 ml 02/01/21 16:00 02/02/21 08:29 0.9 % Sodium Chloride Flush 3 Ml Syringe IVFLUSH Not Given QSHIFT [facility] Labs CBC & Chem 7: 02/02/21 05:03 02/02/21 02:44 Labs: Laboratory Results - last 24 hr 02/01/21 02/01/21 02/01/21 10:33 12:23 14:07 WBC 20.8 H RBC 4.50 L Hgb 12.6 L Hct 38.4 L MCV 85.3 MCH 28.0 MCHC 32.8 RDW 14.5 Plt Count 322 MPV 9.0 L Immature Gran % (Auto) Neut % (Auto) Lymph % (Auto) [place] % (Auto) Eos % (Auto) Baso % (Auto) Lymph # (Auto) [place] # (Auto) Eos # (Auto) Baso # (Auto) Abs Immat Gran (auto) Absolute Neuts (auto) Absolute Nucleated RBC 0.000 Nucleated RBC % (auto) 0.0 PT 12.7 INR 1.1 PTT (Heparin Protocol) Sodium Potassium Chloride Carbon Dioxide Anion Gap BUN Creatinine Estim Creat Clear Calc Estimated GFR POC Glucose Random Glucose Calcium Troponin I High Sens 90.7 H D Triglycerides Cholesterol LDL Cholesterol, Calc HDL Cholesterol COVID-19 (MJ) COVID-19 Clin Com 02/01/21 02/01/21 02/01/21 14:07 14:07 18:21 WBC RBC Hgb Hct MCV MCH MCHC RDW Plt Count MPV Immature Gran % (Auto) Neut % (Auto) Lymph % (Auto) [place] % (Auto) Eos % (Auto) Baso % (Auto) Lymph # (Auto) [place] # (Auto) Eos # (Auto) Baso # (Auto) Abs Immat Gran (auto) Absolute Neuts (auto) Absolute Nucleated RBC Nucleated RBC % (auto) PT INR PTT (Heparin Protocol) 33.2 L Sodium Potassium Chloride Carbon Dioxide Anion Gap BUN Creatinine Estim Creat Clear Calc Estimated GFR POC Glucose Random Glucose Calcium Troponin I High Sens 298.5 H D Triglycerides Cholesterol LDL Cholesterol, Calc HDL Cholesterol COVID-19 (MJ) Negative COVID-19 Clin Com See Note 02/01/21 02/01/21 02/01/21 20:22 20:22 20:38 WBC RBC Hgb Hct MCV MCH MCHC RDW Plt Count MPV Immature Gran % (Auto) Neut % (Auto) Lymph % (Auto) [place] % (Auto) Eos % (Auto) Baso % (Auto) Lymph # (Auto) [place] # (Auto) Eos # (Auto) Baso # (Auto) Abs Immat Gran (auto) Absolute Neuts (auto) Absolute Nucleated RBC Nucleated RBC % (auto) PT INR PTT (Heparin Protocol) 41.0 L D Sodium Potassium Chloride Carbon Dioxide Anion Gap BUN Creatinine Estim Creat Clear Calc Estimated GFR POC Glucose 354 H* Random Glucose Calcium Troponin I High Sens 285.4 H Triglycerides Cholesterol LDL Cholesterol, Calc HDL Cholesterol COVID-19 (MJ) COVID-19 Clin Com 02/02/21 02/02/21 02/02/21 02:44 02:45 05:03 WBC 16.0 H RBC 4.42 L Hgb 12.2 L Hct 37.1 L MCV 83.9 MCH 27.6 MCHC 32.9 RDW 14.6 Plt Count 316 MPV 9.5 Immature Gran % (Auto) 0.4 Neut % (Auto) 81.7 H Lymph % (Auto) 12.4 L [place] % (Auto) 5.4 Eos % (Auto) 0.0 Baso % (Auto) 0.1 Lymph # (Auto) 2.0 [place] # (Auto) 0.9 Eos # (Auto) 0.0 Baso # (Auto) 0.0 Abs Immat Gran (auto) 0.07 H Absolute Neuts (auto) 13.1 H Absolute Nucleated RBC 0.000 Nucleated RBC % (auto) 0.0 PT INR PTT (Heparin Protocol) 64.5 D Sodium 140 Potassium 4.1 Chloride 105 Carbon Dioxide 26 Anion Gap 13 BUN 16 Creatinine 0.90 Estim Creat Clear Calc 102.8 Estimated GFR > 60 POC Glucose Random Glucose 249 H Calcium 9.3 Troponin I High Sens Triglycerides 63 Cholesterol 119 LDL Cholesterol, Calc 66 HDL Cholesterol 41 COVID-19 (MJ) COVID-19 [place] 02/02/21 02/02/21 02/02/21 05:03 07:21 09:47 WBC RBC Hgb Hct MCV MCH MCHC RDW Plt Count MPV Immature Gran % (Auto) Neut % (Auto) Lymph % (Auto) [place] % (Auto) Eos % (Auto) Baso % (Auto) Lymph # (Auto) [place] # (Auto) Eos # (Auto) Baso # (Auto) Abs Immat Gran (auto) Absolute Neuts (auto) Absolute Nucleated RBC Nucleated RBC % (auto) PT 12.8 INR 1.1 PTT (Heparin Protocol) 53.7 Sodium Potassium Chloride Carbon Dioxide Anion Gap BUN Creatinine Estim Creat Clear Calc Estimated GFR POC Glucose 237 H Random Glucose Calcium Troponin I High Sens Triglycerides Cholesterol LDL Cholesterol, Calc HDL Cholesterol COVID-19 (MJ) COVID-19 Clin Com 02/02/21 11:31 WBC RBC Hgb Hct MCV MCH MCHC RDW Plt Count MPV Immature Gran % (Auto) Neut % (Auto) Lymph % (Auto) [place] % (Auto) Eos % (Auto) Baso % (Auto) Lymph # (Auto) [place] # (Auto) Eos # (Auto) Baso # (Auto) Abs Immat Gran (auto) Absolute Neuts (auto) Absolute Nucleated RBC Nucleated RBC % (auto) PT INR PTT (Heparin Protocol) Sodium Potassium Chloride Carbon Dioxide Anion Gap BUN Creatinine Estim Creat Clear Calc Estimated GFR POC Glucose 250 H Random Glucose Calcium Troponin I High Sens Triglycerides Cholesterol LDL Cholesterol, Calc HDL Cholesterol COVID-19 (MJ) COVID-19 Clin Com Assessment and Plan (1) NSTEMI (non-ST elevated myocardial infarction): Status: Acute Assessment and Plan: hospital d#2 60yo M with HTN, DM2, tobacco abuse presenting with chest pressure suspicious for angina admitted for NSTEMI # NSTEMI - Cardiology consulted, [place] [facility] [place]. continue heparin gtt, ASA, high-intensity statin, metoprolol. add NTG paste. # HTN - continue amlodipine, lisinopril, metoprolol # GERD - continue PPI # DM2 - continue Lantus + correction-dose lispro # tobacco abuse - cessation counseled
[2021-02-02] MEDS: Nitroglycerin 2 % Oint 1 GM Packet 0.5 INCH TRANSDERMA (13:29)
[2021-02-02] MEDS: Nitroglycerin 2 % Oint 1 GM Packet 1 INCH TRANSDERMA ×2 (13:32→20:30)
[2021-02-02 16:41] LABS: Glucose, Whole Blood 279 mg/dL (60-115)
[2021-02-02 20:20] LABS: Glucose, Whole Blood 361 mg/dL (60-115)
[2021-02-02] MEDS: Aspirin Enteric Coated 81 MG TABLET.DR PO (20:30)
[2021-02-02] MEDS: Insulin Glargine,Hum.rec.anlog 100 UNIT/ML 10 ML VIAL 46 UNIT SUBCUT (20:30)
[2021-02-02] MEDS: Atorvastatin Calcium 80 MG TABLET PO (20:30)
[2021-02-03] VITALS (7 sets, daily range): BP systolic 129–148; BP diastolic 72–85; PULSE 60–87; RESP 16–20; TEMP 36.2–36.8; O2SAT 97–100
[2021-02-03] MEDS: Heparin Sodium,Porcine/1/2NS 25,000 UNIT/250 ML IV.SOLN 11.91 UNIT IVCONT (05:38)
[2021-02-03 06:35] LABS: PTT Heparin Drip 51.1 SEC (53-77.9)
[2021-02-03] MEDS: Heparin Sodium,Porcine 5,000 UNIT/ML VIAL 3800 UNIT IVPUSH (07:14)
[2021-02-03] MEDS: Insulin Lispro 100 UNIT/ML 3 ML VIAL SUBCUT ×2 (07:30→11:42)
[2021-02-03 07:31] LABS: Glucose, Whole Blood 254 mg/dL (60-115)
[2021-02-03] MEDS: Metoprolol Succinate ER 50 MG TAB.ER.24H PO (07:32)
[2021-02-03] MEDS: lisinopriL 40 MG TABLET PO (07:32)
[2021-02-03] MEDS: Nitroglycerin 2 % Oint 1 GM Packet 1 INCH TRANSDERMA (07:33)
[2021-02-03] MEDS: amLODIPine Besylate 5 MG TABLET PO (07:33)
[2021-02-03] MEDS: 0.9 % Sodium Chloride Flush 3 ML SYRINGE IVFLUSH (07:36)
--- NOTE | 2021-02-03 09:18 | MHC.CM.PN ---
PT REPORTS HE LIVES WITH HIS ADULT SON AND IS INDEPENDENT WITH ALL CARE AND MOBILITY. PT REPORTS HE HAS NO HOME SERVICES AND DOES NOT USE DME. PT CONFIRMS HIS PCP IS YUNIEL RITCHIE. PT COMPLETED A HCP NAMING HIS DAUGHTERS, HERMES ([phone]) AND DINORAH ([phone]) HIS PRIMARY AND ALTERNATE AGENTS RESPECTIVELY. IMM EXPLAINED AND PT REPORTS UNDERSTANDING. CURRENT DC PLAN IS HOME WITH NO SERVICES PT WILL SELF ARRANGE TRANSPORTATION
--- NOTE | 2021-02-03 10:44 | PM.PNCARD ---
Subjective Subjective Date of Service: 02/03/21 Interval history: He states he feels okay. No further chest pain. Review of Systems Review of Systems Yes all other systems are reviewed and are negative Cardiovascular: Reports as per HPI, Reports no additional cardiovascular complaints, Denies acrocyanosis, Denies cool extremities, Denies painful fingertips, Reports chest pain, Reports chest pain at rest, Denies diaphoresis, Denies syncope, Denies irregular heart rhythm, Denies claudication, Denies leg edema, Denies lightheadedness, Denies palpitations and Denies dyspnea Respiratory: Denies dyspnea Denies syncope Endocrine: Denies palpitations Physical Exam Vital Signs: Last Vital Signs Temp 97.1 F 02/03/21 08:11 Pulse 64 02/03/21 08:11 Resp 18 02/03/21 08:11 BP 140/85 H 02/03/21 08:11 Pulse Ox 100 02/03/21 08:11 Body Mass Index 29.2 Const General: cooperative, comfortable and no acute distress Orientation/consciousness: patient oriented x3 HENMT Other: Unremarkable Neck Neck: Yes normal visual inspection Chest Chest palpation & inspection: normal inspection of the chest Resp Auscultation: clear to auscultation bilaterally, no crackles and no wheezes Cardio Jugular venous distension: no JVD Palpation: normal PMI Heart sounds: S1 normal heart sound present, S2 normal heart sound present, no gallops, no murmurs and no rubs GI Palpation (GI): Soft to palpation Back/Spine/Pelvis Other: unremarkable Skin General skin exam: no rashes or lesions noted Neuro General: patient oriented x3 Extrem General: Yes no clubbing, cyanosis or edema Psych Mental Status: mental status grossly normal Results Labs and Meds Result diagrams: 02/02/21 05:03 02/02/21 02:44 Lab results: Laboratory Results - last 24 hr 02/02/21 02/02/21 02/02/21 11:31 15:56 16:30 PTT (Heparin Protocol) 55.0 POC Glucose 250 H 279 H 02/02/21 02/03/21 02/03/21 20:16 05:56 07:26 PTT (Heparin Protocol) 51.1 L POC Glucose 361 H* 254 H Progress Note: A&P Assessment and plan (1) NSTEMI (non-ST elevated myocardial infarction): Status: Acute (2) Essential hypertension: Status: Acute (3) Type 2 diabetes mellitus with unspecified complications: Status: Acute (4) Smoking: Status: Acute Assessment and Plan: 60-year-old gentleman admitted with chest pains. 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 He clearly has elevated high sensitivity troponins with a peak level of 298. Will transfer to [facility] for cardiac catheterization. Continue with heparin drip, aspirin, statins. Fall Risk Details Current Medications: Current Medications Generic Name Dose Route Start Last Admin Trade Name Freq PRN Reason Stop Dose Admin Acetaminophen 650 mg 02/01/21 15:00 Acetaminophen 325 Mg Tablet PO Q6H PRN Pain, Mild (Pain Scale 1-3) Amlodipine Besylate 5 mg 02/01/21 16:00 02/03/21 07:33 Amlodipine Besylate 5 Mg Tablet PO 5 mg DAILY CELSO Administration Protocol Aspirin 81 mg 02/01/21 21:00 02/02/21 20:30 Aspirin Enteric Coated 81 Mg Tablet.Dr PO 81 mg BEDTIME CELSO Administration Atorvastatin Calcium 80 mg 02/02/21 21:00 02/02/21 20:30 Atorvastatin Calcium 80 Mg Tablet PO 80 mg BEDTIME CELSO Administration Calcium Carbonate 750 mg 02/01/21 23:53 02/02/21 00:10 Calcium Carbonate 750 Mg Tab.Chew PO 750 mg Q6H PRN Administration Heartburn Heparin Sodium (Porcine) 3,800 unit 02/03/21 07:08 02/03/21 07:14 Heparin Sodium,Porcine 5,000 Unit/Ml Vial 40 unit/kg (3800 unit) 3,800 unit IVPUSH Administration BOLUS PRN 40 unit/kg - Heparin Protocol Heparin Sodium (Porcine) 7,600 unit 02/03/21 07:10 Heparin Sodium,Porcine 5,000 Unit/Ml Vial 80 unit/kg (7600 unit) IVPUSH BOLUS PRN 80 unit/kg - Heparin Protocol Protocol Heparin Sodium/Sodium Chloride 25,000 unit in 250 mls @ 0 mls/hr 02/01/21 14:00 02/03/21 07:10 IVCONT 14.5 units/kg/hr .Q0M CELSO 13.81 mls/hr Titration Protocol Per Protocol Insulin Glargine 46 unit 02/02/21 21:00 02/02/21 20:30 Insulin Glargine,Hum.Rec.Anlog 100 Unit/Ml 10 Ml Vial SUBCUT 46 unit BEDTIME [facility] Administration Insulin Human Lispro 0 unit 02/02/21 07:30 02/03/21 07:30 Insulin Lispro 100 Unit/Ml 3 Ml Vial SUBCUT 6 unit QIDACHS [facility] Administration Protocol Lisinopril 40 mg 02/01/21 16:00 02/03/21 07:32 Lisinopril 40 Mg Tablet PO 40 mg DAILY [facility] Administration Protocol Metoprolol Succinate 50 mg 02/02/21 09:00 02/03/21 07:32 Metoprolol Succinate Er 50 Mg Tab.Er.24h PO 50 mg DAILY [facility] Administration Protocol Morphine Sulfate 30 mg 02/01/21 18:00 02/03/21 05:39 Morphine Sulfate Er 30 Mg Tablet.Er PO Not Given Q12H [facility] Nitroglycerin 1 inch 02/02/21 14:00 02/03/21 07:33 Nitroglycerin 2 % Oint 1 Gm Packet TRANSDERMA 02/03/21 14:01 1 inch RQ6H WHILE AWAKE [facility] Administration Omeprazole 20 mg 02/02/21 06:30 02/03/21 05:39 Omeprazole 20 Mg Capsule. PO Not Given DAILY@0630 [facility] Ondansetron HCl 4 mg 02/01/21 15:00 Ondansetron Hcl 4 Mg/2 Ml Vial IVPUSH Q8H PRN Nausea and Vomiting Oxycodone HCl 5 mg 02/01/21 16:19 Oxycodone Hcl Immed Release 5 Mg Tablet PO Q8H PRN Pain, Moderate (Pain Scale 4-6 Pharmacy Consult 1 each 02/01/21 13:54 Consult Rx Perform Med Rec MISCELLANE ONCE PRN Consult order Sodium Chloride 3 ml 02/01/21 16:00 02/03/21 07:36 0.9 % Sodium Chloride Flush 3 Ml Syringe IVFLUSH 3 ml QSHIFT [facility] Administration Time Spent With Patient Time: Total time spent is greater than 50% in coordination of care (as documented) at patient's floor/unit and/or counseling patient: Time with patient: less than 15 minutes
[2021-02-03 11:10] LABS: Glucose, Whole Blood 284 mg/dL (60-115)
--- NOTE | 2021-02-03 11:18 | P.DS_ITS ---
DS: Providers Provider Date of Service: 02/03/21 Date of admission: 02/01/21 15:00 Primary care physician: Aj Alonso MD Consults: 02/01/21 15:00 Consult to Cardiology Routine Consulting Provider: Miles Spencer Reason for consultation: nstemi, LBBB Has provider been notified: No DS: Diagnosis Discharge Diagnosis (1) NSTEMI (non-ST elevated myocardial infarction): Status: Acute (2) Essential hypertension: Status: Acute (3) Type 2 diabetes mellitus with unspecified complications: Status: Acute (4) Smoking: Status: Acute DS: Medications Discharge Medications Home Medications: Home Medications Medication Instructions Recorded Confirmed Lantus Solostar U-100 Insulin 42 unit SUBCUT BEDTIME 10/03/20 02/01/21 metformin 1,000 mg BID 10/03/20 02/01/21 omega-3 fatty acids PO BID 10/03/20 01/21/21 omeprazole 20 mg DAILY 10/03/20 02/01/21 amlodipine 1 tab PO QAM 02/01/21 02/01/21 lisinopril 1 tab PO QAM 02/01/21 02/01/21 morphine 1 tab PO Q12H 02/01/21 02/01/21 oxycodone-acetaminophen 1 tab PO Q8H PRN 02/01/21 02/01/21 Previous Rx's Medication Instructions Recorded metoprolol succinate 50 mg 50 mg PO DAILY #30 tab 11/14/20 tablet,extended release 24 hr aspirin 81 mg tablet,delayed 81 mg PO BEDTIME #30 tab 11/25/20 release atorvastatin 40 mg tablet 40 mg PO BEDTIME #30 tab 11/25/20 heparin(porcine) in 0.45% NaCl 25,000 unit CONTINUOUS IV INFUSION 02/03/21 .Q0M 1 Days ml nitroglycerin [Nitro-Bid] 1 inch TRANSDERMAL RQ6H WHILE 02/03/21 AWAKE 1 Days g DS: Summary Hospital Course Hospital Course: Admission note HPI 60 -year-old man presented to the ER with complaints of chest pain. He reports he woke up at 06:00 this morning and felt midsternal chest pressure and burningthat lasted about 15 minutes. He reports that it resolved on its own. He reports then at 09:00 this morning he was sitting eating breakfast and again experience the same discomfort. He reported radiation to both his arms and hands with some nausea and dizziness. He was able to lay down and he felt better. He had a cardiac catheterization in March 2019. Did show mild luminal irregularities only the LAD and circumflex and 40% stenosis in the mid section of the RCA. He also had a stress test in September of 2020 which is essentially unremarkable. Today in the ER EKG did show some changes new incomplete bundle branch block, troponin 51.6 with repeat of 90.7. He was started on IV heparin drip, given Zofran, nitroglycerin. Patient at this time is pain free. He be admitted for further management treatment of NSTEMI. Hospital course A 60 years old male was admitted to the hospital with chest pain. Initial workup was concerning for NSTEMI with elevated troponin up to 290 and new LBBB on EKG. The patient was evaluated by Cardiology and started on aspirin, beta- fuentes, statin with heparin infusion. Cardiology recommended transfer to [facility] for cardiac angiogram. Patient will remain on aspirin, statin and heparin at time of transfer. Time Spent with Patient Time attestation: Total time spent providing and/or coordinating discharge services: Discharge coordination time: Greater than 30 minutes Physical Exam Vital Signs: Vital Signs: Last Vital Signs Temp 97.1 F 02/03/21 08:11 Pulse 64 02/03/21 08:11 Resp 18 02/03/21 08:11 BP 140/85 H 02/03/21 08:11 Pulse Ox 100 02/03/21 08:11 Body Mass Index 29.2 Const: Other: Constitutional : Alert, oriented, not in distress Neck : Normal inspection, Supple Cardiovascular : RRR, S1 S2, no lower extremity edema Respiratory : Good bilateral air entry, no crackles, wheezes or rhonchi Gastrointestinal: soft, lax, Normal bowel sounds, Non tender Skin : Warm/Dry, No rash Neurological : Alert & oriented x3, No focal deficit DS: Data Data Completed and Pending Labs on day of discharge: Laboratory Results - last 24 hr 02/02/21 02/02/21 02/02/21 11:31 15:56 16:30 PTT (Heparin Protocol) 55.0 POC Glucose 250 H 279 H 02/02/21 02/03/21 02/03/21 20:16 05:56 07:26 PTT (Heparin Protocol) 51.1 L POC Glucose 361 H* 254 H 02/03/21 11:03 PTT (Heparin Protocol) POC Glucose 284 H Discharge Plan Discharge Patient Disposition: er Acute [facility] Referrals: Aj Alonso MD [Primary Care Provider] - Discharge Medications: New Nitro-Bid 2 % Ointment 1 inch transdermal RQ6H WHILE AWAKE 1 Days RF: 0 heparin(porcine) in 0.45% NaCl 25,000 unit/250 mL Parenteral Solution 25,000 unit continuous IV infusion .Q0M 1 Days RF: 0 Continued metoprolol succinate [Toprol XL] 50 mg tablet extended release 24 hr 50 mg PO DAILY Qty: 30 RF: 6 atorvastatin 40 mg tablet 40 mg PO BEDTIME Qty: 30 RF: 4 aspirin 81 mg tablet,delayed release (DR/EC) 81 mg PO BEDTIME Qty: 30 RF: 4 omeprazole 20 mg Capsule,Delayed Release(Dr/Ec) 20 mg DAILY RF: 0 metformin 1,000 mg Tablet 1,000 mg BID RF: 0 omega-3 fatty acids Capsule PO BID RF: 0 Lantus Solostar U-100 Insulin 100 unit/mL (3 mL) Insulin Pen 42 unit SUBCUT BEDTIME RF: 0 amlodipine 5 mg tablet 1 tab PO QAM RF: 0 morphine 30 mg tablet extended release 1 tab PO Q12H RF: 0 oxycodone-acetaminophen 5-325 mg tablet 1 tab PO Q8H PRN (Reason: pain) RF: 0 lisinopril 40 mg tablet 1 tab PO QAM RF: 0 Discharge Orders: Discharge Order (Routine); Ordered 02/03/21 Ordered By: Venu Hermosillo Diet: diabetic diet and low salt diet Activity on Discharge: As tolerated Stand Alone Forms: Patient Portal Discharge page Care Plan Goals: Read below Health Concerns: Read below Plan of Treatment: You were admitted to the hospital for evaluation of chest pain. 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 Your treated with aspirin, heparin infusion, pain medications and oxygen with fair response. Recommendations to transfer you to [facility] for cardiac angiogram.
--- NOTE | 2021-02-03 11:29 | MHC.CM.PN ---
Patient [place] be [place] [facility] transport.
--- NOTE | 2021-02-03 12:12 | CA_ITS ---
Transthoracic Echocardiogram Patient (Last, First, Middle): Cruz Ryan L Gender: Male Date of : 1960 Age: 60 Procedure Date: 02/03/2021 Procedure Type: Transthoracic Echocardiogram [place] [facility] [place] Height: 180.34 cm Weight: 95.26 kg BSA: 2.15 m2 Heart Rate: bpm BP: 129 / 73 mmHg Business Services Assistant: Referring MD: Miles Spencer MD Symptoms: ACS Study Quality: Good ECG Rhythm: Sinus Conclusions: - The left ventricular systolic function is mildly decreased. The visually estimated ejection fraction is between 45-50%. - The basal inferior segment is hypokinetic. Findings Left Ventricle Normal left ventricular cavity size. There is moderately increased left ventricular wall thickness. The left ventricular systolic function is mildly decreased. The visually estimated ejection fraction is between 45-50%. Wall Motion Rest Echo Findings The basal inferior segment is hypokinetic. Right Ventricle Mildly increased right ventricular cavity size. There is normal right ventricular systolic function. Prior Study Comparison Changes noted compared to prior study dated: 10/03/2020. Measurements 2D Linear Measurements IVSd: 1.32 0.6-0.9/0.6-1.0 cm LVIDd: 5.35 3.9-5.3/4.2-5.9 cm LVIDd Index: 2.49 2.4-3.2/2.2-3.1 cm/m2 LVIDs: 3.45 2.0-3.6 cm LVPWd: 1.37 0.7-1.1 cm LV Mass: 381.25 67-162/88-224 g LV Mass Index: 177.33 43-95/49-115 g/m2 2D Systolic Function EF 4C: 42.30 >55% EF 2C: 32.20 >55% Updated in Other Vendor System with Status of Final Devin Sousa MD electronically signed on 02/03/2021 11:18:37 AM with status of Final
--- NOTE | 2021-02-03 13:18 | PC.NURSE ---
Report called to Chantelle at [facility]. Instructed that he needs dustin PTT and adjustment to heparin gtt according to true [place]. Patient agreeable to transfer to [facility].
== END 2021-02-03 13:20 | disposition short-term general hospital (02) | DRG 282 ==
LOC: HO.ED 10:46 → HO.EDOVER 15:50 → HO.IMC 16:28
PROVIDERS: Nurse Practitioner Acute Care; Physician Assistant; Admitting Provider Family Medicine; Emergency Provider Emergency Medicine; PCP Internal Medicine; Visit Provider Student in an Organized Health Care Education/Training Program
DX: I21.4 Non-ST elevation (NSTEMI) myocardial infarction (principal); I10 Essential (primary) hypertension; K21.9 Gastro-esophageal reflux disease without esophagitis; E11.9 Type 2 diabetes mellitus without complications; Z20.822 Contact with and (suspected) exposure to COVID-19; Z95.810 Presence of automatic (implantable) cardiac defibrillator; F17.210 Nicotine dependence, cigarettes, uncomplicated; Z71.6 Tobacco abuse counseling; Z79.4 Long term (current) use of insulin; Z79.82 Long term (current) use of aspirin; Z79.899 Other long term (current) drug therapy
CPT/HCPCS: 36415; 71045; 80048; 80061; 82947; 84484; 85025; 85027; 85610; 85730; 87635; 93005; 93308; 96374; 99285

== ENCOUNTER → 2021-02-18 09:51 | Outpatient (BNVA) | payer MEDICARE, OTHER, SELFPAY | PROVIDERS: PCP Internal Medicine; Visit Provider Nurse Practitioner Family | DX: I21.4 Non-ST elevation (NSTEMI) myocardial infarction (principal); R07.9 Chest pain, unspecified; I25.10 Atherosclerotic heart disease of native coronary artery without angina pectoris; E11.8 Type 2 diabetes mellitus with unspecified complications; I10 Essential (primary) hypertension; F17.200 Nicotine dependence, unspecified, uncomplicated; Z98.890 Other specified postprocedural states | CPT/HCPCS: 99212 ==

== ENCOUNTER 2021-03-23 08:56 | Emergency (ER) | payer MEDICARE, OTHER, SELFPAY ==
--- NOTE | ~2021-03-23 | CT_ITS ---
EXAMINATION: CT BRAIN, CT CERVICAL SPINE, CT CHEST, CT ABDOMEN AND PELVIS WITHOUT CONTRAST. CLINICAL INFORMATION: Fall. Abdominal abrasion. Lobulated. COMPARISON: CT chest PE protocol 10/03/2020 TECHNIQUE: 5 mm thin axial and reformatted 2 mm thin sagittal and coronal images of brain were obtained. Axial 3 mm thin and reformatted 2 minutes in sagittal coronal images of cervical spine were obtained. Lastly 5 minutes and axial and repeat reformatted 3 mm thin sagittal coronal images of chest, abdomen and pelvis were obtained following IV 100 mL Omnipaque 350. DLP [id number]. FINDINGS: BRAIN: There is no acute intra-axial, extra-axial bleed, masses or midline shift. Both lateral ventricles are symmetrical in size and configuration without enlargement. There is no acute infarction in evolution. The bustos to white matter differences maintain normal. Bone windows reveal no calvarial abnormality. There is mild mucoperiosteal thickening I lateral maxillary sinuses. Rest of the paranasal sinuses and mastoid air cells are well-aerated. CERVICAL SPINE: On reconstructed sagittal images there is mild straightening of cervical lordosis. The vertebral heights, alignment and disc heights are normal. There is mild posterior ventral spondylosis C3-C4 through C6-C7 disc levels. The craniovertebral junction and the C1-C2 alignment is normal. There is no visible acute fracture, dislocation or subluxation seen. The prevertebral and paravertebral soft tissues are normal. The area is widely patent. CHEST: Lungs are well-expanded and clear of acute pneumonic process. There is no pulmonary nodule, contusion or mass seen. The heart size and the great vessels are normal caliber. There are coronary artery calcifications present. There is no pericardial effusion. The central trachea and the bronchi widely patent. There are small shotty pretracheal lymph node. There is no pleural pleural effusion, thickening or calcification. The axilla and the chest wall appears unremarkable. There is a small lipoma of right subscapularis muscle. Bone windows reveal no visible thoracic vertebral or rib fractures. No lytic or sclerotic process seen ABDOMEN AND PELVIS: The liver is normal size, shape and density. No focal lesion or intrahepatic ductal dilatation seen. There are no radiopaque gallstones or wall thickening. Visualized spleen, pancreas and bilateral adrenal glands are unremarkable. There is small 7 mm radiopaque calculi lower pole left kidney. No caliectasis. No additional vertebra calculi seen. There is small intermediate density upper pole left kidney measuring 2 cm. Question complex cyst. There is small 5 mm cyst midpole right kidney. There is no hydronephrosis. There is scattered stool diverticuli and gas seen in colon without any diverticulitis. There is left anterolateral abdominal wall edema/contusion likely from trauma. No laceration seen. There is no hematoma. Imaging to the pelvis reveals slightly prominent prostate gland extending into the base of bladder. No bladder wall abnormality seen. There is no free air or free fluid. Bone windows reveal no lytic or sclerotic process. There is mild degenerative changes with posterior spondylosis L5-S1 disc level. CT/CT cervical spine wo con IMPRESSION: No acute intracranial process seen.. Mild ventral spondylosis C3-C4 through C6-C7 disc levels. No visible acute fracture, dislocation or subluxation seen. No acute process seen in the chest. There is a right subscapularis small intramuscular lipoma. Nonobstructive radiopaque calculi lower pole left kidney. No caliectasis or hydronephrosis. There is no acute intra-abdominal or pelvic abnormality seen. Moderate prostate enlargement.
--- NOTE | ~2021-03-23 | XR_ITS ---
EXAMINATION: XR HAND-WRIST, RIGHT CLINICAL INFORMATION: History of fall. Fracture evaluation. COMPARISON: None TECHNIQUE: Right hand-wrist, 4 views FINDINGS: The majority of the middle and distal phalanges are excluded from the [id number] on this examination focused on the region of the wrist and proximal hand. The distal radius and ulna are normal. Carpal bones are intact and have normal alignment. The joint spaces of the wrist are normal. Mild osteophyte formation at first carpometacarpal joint. A well-corticated focus of ossification along the radial aspect of the first metacarpal head is likely sequela of remote trauma. No acute fracture in this area. Soft tissues are unremarkable. XR/XR hand wrist RT IMPRESSION: * No acute fracture or malalignment in the examined right wrist or hand. * Mild osteoarthritis of the first carpometacarpal joint. * A well-corticated focus of ossification at the first metacarpal head is compatible with sequela of remote trauma. There are no acute fractures in this area.
[2021-03-23 09:04] VITALS: BP 147/82; PULSE 81; RESP 20; TEMP 37; O2SAT 98; BMI 28.9
--- NOTE | 2021-03-23 09:12 | ECG_ITS ---
Test Reason : FALL Blood Pressure : / mmHG Vent. Rate : 081 BPM Atrial Rate : 081 BPM P-R Int : 154 ms QRS Dur : 124 ms QT Int : 400 ms P-R-T Axes : 060 -14 090 degrees QTc Int : 464 ms Sinus rhythm with Premature atrial complexes Non-specific intra-ventricular conduction delay Borderline ECG When compared with ECG of 02-FEB-2021 09:48, No significant change was found Referred By: Flako Helton Electronically Signed By:MEL BLANCO
[2021-03-23 09:16] VITALS: BP 147/82; PULSE 81; RESP 15; TEMP 36.9; O2SAT 100
[2021-03-23 09:20] VITALS: RESP 20
[2021-03-23] MEDS: Morphine Sulfate 4 MG/ML CARTRIDGE IVPUSH (09:20)
--- NOTE | 2021-03-23 09:22 | PC.NURSE ---
Pt alert and oriented. Pt had unwitnessed fall down 11 flights of stairs landing on R arm, did not hit head, No LOC, Neuros in tact, speaking full sentences. C collar applied. Pt with 2 lacerations to R ribcage, R arm swollen, + BS x 4, abd distention noted. Pt on blood thinners, Pt unaware of which med. Daughter was at bedside, left to go get med list. Awaiting lab results at this time.
[2021-03-23 09:27] LABS: MANUAL DIFF FLAG NO
[2021-03-23 09:29] LABS: Basophils Percent Auto 0.5 % (0-2); Eosinophils Absolute Auto 0.2 X10*3/uL (0.0-0.4); Hematocrit 39.3 % (42-52); Hemoglobin 12.5 g/dl (14.0-18.0); Imm Gran Abs Auto 0.05 X10*3/uL (0.00-0.03); Imm Gran Pct Auto 0.6 % (0.0-0.4); Lymphocytes Percent Auto 36.5 % (20-40); Mean Corpuscular HGB Conc 31.8 g/dl (31.0-36.0); Mean Corpuscular Hemoglobin 27.3 pg (27.0-33.0); Mean Corpuscular Volume 85.8 fL (80-98); Mean Platelet Volume 8.7 fL (9.4-12.4); Monocytes Absolute Auto 0.8 X10*3/uL (0.1-1.2); Monocytes Percent Auto 9.9 % (2-11); Neutrophils Percent Auto 49.5 % (45-73); Platelet Count 355 X10*3/uL (160-400); Red Blood Count 4.58 X10*6/uL (4.60-5.80); Red Cell Distribution Width 14.6 % (11.0-16.0); White Blood Count 8.1 X10*3/uL (4.8-10.8)
--- NOTE | 2021-03-23 09:34 | ED.FALL ---
HPI - Fall General Chief Complaint: Fall Stated Complaint: fall - hand and abd injury Time Seen by Provider: 03/23/21 09:10 Source: patient Mode of arrival: ambulatory Limitations: no limitations History of Present Illness HPI Narrative: Patient presents to the ED for fall. Patient presents to ED for right hand pain and abdominal wall abrasions. Patient states he slipped and fell down the stairs. Patient denies any dizziness, chest pain, shortness of breath, abdominal pain or headache before falling. Patient admits to taking heparin infusion due to history of heart attack and cardiac catheterization. Patient denies any other complaints, but just right hand pain. Related Data Home Medications Medication Instructions Recorded Confirmed Lantus Solostar U-100 Insulin 42 unit SUBCUT BEDTIME 10/03/20 02/18/21 metformin 1,000 mg BID 10/03/20 02/18/21 omega-3 fatty acids PO BID 10/03/20 02/18/21 omeprazole 20 mg DAILY 10/03/20 02/18/21 amlodipine 1 tab PO QAM 02/01/21 02/18/21 lisinopril 1 tab PO QAM 02/01/21 02/18/21 morphine 1 tab PO Q12H 02/01/21 02/18/21 oxycodone-acetaminophen 1 tab PO Q8H PRN 02/01/21 02/18/21 atorvastatin 80 mg tablet 80 mg PO BEDTIME 02/18/21 02/18/21 ticagrelor 90 mg tablet 90 mg PO BID 02/18/21 02/18/21 Previous Rx's Medication Instructions Recorded metoprolol succinate 50 mg 50 mg PO DAILY #30 tab 11/14/20 tablet,extended release 24 hr aspirin 81 mg tablet,delayed 81 mg PO BEDTIME #30 tab 11/25/20 release heparin(porcine) in 0.45% NaCl 25,000 unit CONTINUOUS IV INFUSION 02/03/21 .Q0M 1 Days ml Allergies Allergy/AdvReac Type Severity Reaction Status Date / Time No Known Allergies Allergy Verified 02/01/21 10:07 [No Known Allergies*] Review of Systems Review of Systems: Yes all other systems are reviewed and are negative Constitutional: Constitutional: Reports as per HPI and Reports no additional constitutional complaints Eyes: Eyes: Reports as per HPI and Reports no additional eye complaints ENT: Reports system reviewed and no additional complaints, except as documented and Reports as per HPI Cardiovascular: Cardiovascular: Reports as per HPI and Reports no additional cardiovascular complaints Respiratory: Respiratory: Reports as per HPI and Reports no additional respiratory complaints Gastrointestinal: Gastrointestinal: Reports as per HPI and Reports no additional gastrointestinal complaints Comments: Abdominal abrasion Genitourinary: Genitourinary: Reports no additional male genitourinary complaints and Reports as per HPI Musculoskeletal: Musculoskeletal: Reports no additional musculoskeletal complaints and Reports as per HPI Comments: Right hand pain Neurologic: Reports system reviewed and no additional complaints, except as documented and Reports as per HPI FORMERLY [facility], [facility]–1983 Past Medical History Medical History Atherosclerotic cardiovascular disease Chest pain in adult Diabetes Essential hypertension HTN (hypertension) Smoking Type 2 diabetes mellitus with unspecified complications Surgical History History of cardiac cath (~03/2019) S/P cardiac cath Family History Family History Father No problems noted. Mother Leukemia HTN (hypertension) Social History Social History Household Members: Family Housing: House Alcohol intake: never Smoking Status: Current every day smoker Tobacco Type: Cigarette Packs Per Day: 0.25 Cigarettes Per Day: 4 Smoked in Last 30 Days: Yes Second Hand Smoke Exposure: No Use of substances other than those prescribed or required for medical reasons: Yes Substance Use Type: Marijuana Substance Use Frequency: Daily Any prior treatment program specific to substance use: No Advance Directives: No Advance Directives Information Provided: No service: No Current occupational status: unemployed Physical Exam Vital Signs: Vital Signs: Last Vital Signs Temp 98.7 F 03/23/21 11:45 Pulse 89 03/23/21 13:03 Resp 16 03/23/21 13:03 BP 138/95 H 03/23/21 13:03 Pulse Ox 95 03/23/21 13:03 Body Mass Index 28.9 Const: General: cooperative, healthy appearing, comfortable, no acute distress, well developed, alert, awake and Physically active HENMT: Head: Yes normal to inspection, Yes No palpable skull fracture present, Yes normocephalic, Yes atraumatic, No abrasion, No Prather's sign, No contusion, No cranial bruits, No hematoma, No laceration, No occipital foramen tenderness, No palpable skull fracture, No raccoon eyes, No scalp lesion, No scalp tenderness, No Temporal artery tenderness present and No periorbital ecchymosis Eyes: General: appearance normal, both eyes and all related structures Neck: Neck: Yes normal visual inspection, Yes full ROM, Yes no lymphadenopathy, Yes no meningeal signs, Yes trachea midline, Yes supple and No tender Chest: Chest palpation & inspection: normal inspection of the chest and normal palpation of entire chest wall Resp: Effort & Inspection: normal respiratory effort and able to speak in complete sentences Auscultation: clear to auscultation bilaterally Cardio: Jugular venous distension: no JVD Heart sounds: S1 normal heart sound present and S2 normal heart sound present GI: Other: Positive for 2 left abdominal abrasions. Inspection: Yes normal to inspection and No abdominal wall ecchymosis Palpation (GI): Soft to palpation, not firm, nontender, no guarding and not rigid : General: No CVA tenderness and Yes no CVA tenderness Back/Spine/Pelvis: Back: no CVA tenderness, No CVA tenderness and No back tenderness Skin: General skin exam: no rashes or lesions noted and elasticity normal Neuro: General: gait normal, no meningeal signs and CN's II-XI intact bilaterally Cranial nerves: Yes CN's II-XII intact bilaterally Extrem: Other: Right upper extremity: Positive for slight swelling of dorsal aspect of right hand, but negative for obvious deformity of right upper extremity. Pulses/brachial/radial pulse intact. Capillary refill intact. Vascular/motor exam intact. Other extremities motor/neuro/vascular exam intact and negative for signs of trauma. General: Yes normal to inspection and Yes full ROM Psych: Appearance: grossly normal, well kempt and not disheveled Course Course Course Narrative: Although patient's main complaint on the right hand due to patient taking heparin infusion and abdominal abrasions patient may be having distracting injury so patient will have a head CT, C-spine, chest CT, abdominal CT to make sure there is no brain bleed, neck fracture, chest hemothorax, pneumothorax, fracture or any abdominal bleed. Patient given morphine oxycodone p.o. for pain. Presently patient will not allow me to do a CT scan without kidney function although he was informed we want to make sure there is no alarming trauma occurring that will need emergent evaluation by [facility]. Patient's cardiac history although fall seems mechanical will do EKG and troponin. Reevaluation(s) Reevaluation #1: Patient states up-to-date with tetanus. Patient's 1st troponin came back negative. Patient EKG negative for STEMI. Hand x-ray negative for fracture. Patient will be sent for head CT, cervical CT, chest CT, abdominal CT DT patient being on heparin and having a fall down the stairs. Reevaluation #2: Second troponin did not increased amount of 50%. Dr. Villavicencio had to do a wet read due to CT scan not working. He read the images of head CT, cervical CT, chest CT, abdominal CT and he states there was negative for signs of any acute medical/surgical etiology/trauma etiologies. Patient to be discharged. Patient informed to return to the ED if symptoms worsen MDM - Fall MDM Narrative Medical decision making narrative: Fall. Hand contusion Lab Data Result diagrams: 03/23/21 09:24 03/23/21 09:24 Labs: Lab Results 03/23/21 03/23/21 03/23/21 Range/Units 09:24 09:24 09:24 WBC 8.1 (4.8-10.8) X10*3/uL RBC 4.58 L (4.60-5.80) X10*6/uL Hgb 12.5 L (14.0-18.0) g/dl Hct 39.3 L (42-52) % MCV 85.8 (80-98) fL MCH 27.3 (27.0-33.0) pg MCHC 31.8 (31.0-36.0) g/dl RDW 14.6 (11.0-16.0) % Plt Count 355 (160-400) X10*3/uL MPV 8.7 L (9.4-12.4) fL Immature Gran % (Auto) 0.6 H (0.0-0.4) % Neut % (Auto) 49.5 (45-73) % Lymph % (Auto) 36.5 (20-40) % Day % (Auto) 9.9 (2-11) % Eos % (Auto) 3.0 (0-4) % Baso % (Auto) 0.5 (0-2) % Lymph # (Auto) 3.0 (1.2-4.9) X10*3/uL Day # (Auto) 0.8 (0.1-1.2) X10*3/uL Eos # (Auto) 0.2 (0.0-0.4) X10*3/uL Baso # (Auto) 0.0 (0.0-0.2) X10*3/uL Abs Immat Gran (auto) 0.05 H (0.00-0.03) X10*3/uL Absolute Neuts (auto) 4.0 (2.0-8.3) X10*3/uL Absolute Nucleated RBC 0.000 (0.0-0.012) X10*3/uL Nucleated RBC % (auto) 0.0 (0.0-0.2) /100WBC PT 10.8 (10.8-13.0) SEC INR 0.9 (0.9-1.1) APTT 35.7 (24.1-38.0) SEC Sodium 143 (135-145) mmol/L Potassium 3.8 (3.3-5.1) mmol/L Chloride 106 (96-108) mmol/L Carbon Dioxide 26 (22-29) mmol/L Anion Gap 15 (12-20) BUN 15 (9-16) mg/dL Creatinine 0.94 (0.5-1.4) mg/dL Estim Creat Clear Calc 93.8 Estimated GFR > 60 Random Glucose 122 H D (60-115) mg/dL Calcium 9.5 (8.4-10.2) mg/dL Total Bilirubin 1.0 (0.0-1.0) mg/dL AST 28 (5-37) U/L ALT 38 (0-40) U/L Alkaline Phosphatase 66 (39-117) U/L Troponin I High Sens (<3.5-35.0) ng/L Total Protein 7.5 (6.5-8.0) g/dL Albumin 4.3 (3.5-5.0) g/dL 03/23/21 03/23/21 Range/Units 09:24 13:13 WBC (4.8-10.8) X10*3/uL RBC (4.60-5.80) X10*6/uL Hgb (14.0-18.0) g/dl Hct (42-52) % MCV (80-98) fL MCH (27.0-33.0) pg MCHC (31.0-36.0) g/dl RDW (11.0-16.0) % Plt Count (160-400) X10*3/uL MPV (9.4-12.4) fL Immature Gran % (Auto) (0.0-0.4) % Neut % (Auto) (45-73) % Lymph % (Auto) (20-40) % Day % (Auto) (2-11) % Eos % (Auto) (0-4) % Baso % (Auto) (0-2) % Lymph # (Auto) (1.2-4.9) X10*3/uL Day # (Auto) (0.1-1.2) X10*3/uL Eos # (Auto) (0.0-0.4) X10*3/uL Baso # (Auto) (0.0-0.2) X10*3/uL Abs Immat Gran (auto) (0.00-0.03) X10*3/uL Absolute Neuts (auto) (2.0-8.3) X10*3/uL Absolute Nucleated RBC (0.0-0.012) X10*3/uL Nucleated RBC % (auto) (0.0-0.2) /100WBC PT (10.8-13.0) SEC INR (0.9-1.1) APTT (24.1-38.0) SEC Sodium (135-145) mmol/L Potassium (3.3-5.1) mmol/L Chloride (96-108) mmol/L Carbon Dioxide (22-29) mmol/L Anion Gap (12-20) BUN (9-16) mg/dL Creatinine (0.5-1.4) mg/dL Estim Creat Clear Calc Estimated GFR Random Glucose (60-115) mg/dL Calcium (8.4-10.2) mg/dL Total Bilirubin (0.0-1.0) mg/dL AST (5-37) U/L ALT (0-40) U/L Alkaline Phosphatase (39-117) U/L Troponin I High Sens 4.6 D 3.9 (<3.5-35.0) ng/L Total Protein (6.5-8.0) g/dL Albumin (3.5-5.0) g/dL ECG Data Interpretation: Sinus rhythm with premature atrial complexes. Nonspecific intraventricular conduction delay. Ventricular rate 81. Pr interval 154. QRS 124. QTC 464. Negative STEMI Discharge Plan Discharge Clinical Impression: Fall, Contusion of hand Patient Disposition: Home, Self-Care Instructions: Contusion in Adults (ED), Fall Prevention (ED) Additional Instructions: Return to the ED immediately for headache, dizziness, rectal bleeding, vomiting blood, abdominal pain, dizziness, chest pain, shortness of breath, or any other concerning symptoms. Prescriptions: No Action metoprolol succinate [Toprol XL] 50 mg tablet extended release 24 hr 50 mg PO DAILY Qty: 30 RF: 6 aspirin 81 mg tablet,delayed release (DR/EC) 81 mg PO BEDTIME Qty: 30 RF: 4 omeprazole 20 mg Capsule,Delayed Release(Dr/Ec) 20 mg DAILY RF: 0 metformin 1,000 mg Tablet 1,000 mg BID RF: 0 omega-3 fatty acids Capsule PO BID RF: 0 Lantus Solostar U-100 Insulin 100 unit/mL (3 mL) Insulin Pen 42 unit SUBCUT BEDTIME RF: 0 amlodipine 5 mg tablet 1 tab PO QAM RF: 0 morphine 30 mg tablet extended release 1 tab PO Q12H RF: 0 oxycodone-acetaminophen 5-325 mg tablet 1 tab PO Q8H PRN (Reason: pain) RF: 0 lisinopril 40 mg tablet 1 tab PO QAM RF: 0 heparin(porcine) in 0.45% NaCl 25,000 unit/250 mL Parenteral Solution 25,000 unit continuous IV infusion .Q0M 1 Days RF: 0 ticagrelor 90 mg tablet 90 mg PO BID RF: 0 atorvastatin 80 mg tablet 80 mg PO BEDTIME RF: 0 Stand Alone Forms: Work/School Release Print Language: Kazakh
[2021-03-23] MEDS: oxyCODONE HCl Immed Release 5 MG TABLET 10 MG PO (09:40)
[2021-03-23 09:48] LABS: INTERNATIONAL NORM RATIO 0.9 (0.9-1.1); Prothrombin Time 10.8 SEC (10.8-13.0)
[2021-03-23 09:51] LABS: Partial Thromboplastin Time 35.7 SEC (24.1-38.0)
[2021-03-23 10:03] LABS: Alanine Aminotransferase 38 U/L (0-40); Albumin Level 4.3 g/dL (3.5-5.0); Alkaline Phosphatase 66 U/L (39-117); Anion Gap 15 (12-20); Aspartate Amino Transferase 28 U/L (5-37); Blood Urea Nitrogen 15 mg/dL (9-16); Calcium 9.5 mg/dL (8.4-10.2); Carbon Dioxide 26 mmol/L (22-29); Chloride 106 mmol/L (96-108); Creatinine Clr Calc Pharmacy 93.8; Estimated Glomerular Filt Rate > 60; Glucose Random 122 mg/dL (60-115); Potassium 3.8 mmol/L (3.3-5.1); Sodium 143 mmol/L (135-145); Total Protein 7.5 g/dL (6.5-8.0)
[2021-03-23] MEDS: LORazepam 2 MG/ML VIAL IVPUSH (10:17)
--- NOTE | 2021-03-23 10:17 | PC.NURSE ---
pt in ct, yelling that he cant lay still, attempting to get off the table. spoke to jagjit carlson, verbal order to give ativan 2mg iv push
[2021-03-23 10:27] LABS: Troponin-I High Sensitivity 4.6 ng/L (<3.5-35.0)
[2021-03-23 10:37] VITALS: BP 153/89; PULSE 86; RESP 20
[2021-03-23 11:45] VITALS: BP 124/75; PULSE 82; RESP 16; TEMP 37.1; O2SAT 96
[2021-03-23 13:03] VITALS: BP 138/95; PULSE 89; RESP 16; O2SAT 95
--- NOTE | 2021-03-23 13:04 | PC.NURSE ---
pt is currently resting with eyes shut, respirations even and unlabored, but easily arousable, vs stable
[2021-03-23 13:46] LABS: Troponin-I High Sensitivity 3.9 ng/L (<3.5-35.0)
[2021-03-23] MEDS: iohexoL 350 MG/ML 100 ML INFUS..BTL IV (18:08)
== END 2021-03-23 14:25 | disposition home or self-care (01) ==
PROVIDERS: Physician Assistant; Emergency Provider Emergency Medicine Emergency Medical Services; PCP Internal Medicine
DX: S60.221A Contusion of right hand, initial encounter (principal); M79.641 Pain in right hand; G44.309 Post-traumatic headache, unspecified, not intractable; M54.6 Pain in thoracic spine; M54.2 Cervicalgia; M25.532 Pain in left wrist; M25.531 Pain in right wrist; R10.9 Unspecified abdominal pain; W10.9XXA Fall (on) (from) unspecified stairs and steps, initial encounter; Y93.9 Activity, unspecified; Y92.9 Unspecified place or not applicable; F17.210 Nicotine dependence, cigarettes, uncomplicated; Z71.6 Tobacco abuse counseling; Y99.9 Unspecified external cause status; Z79.899 Other long term (current) drug therapy
CPT/HCPCS: 36415; 70450; 71260; 72125; 73110; 73130; 74177; 80053; 84484; 85025; 85610; 85730; 93005; 96374; 96375; 99285; J2060; J2270; Q9967

== ENCOUNTER 2021-03-26 23:52 | Emergency (ER) | payer MEDICARE, OTHER, SELFPAY ==
--- NOTE | ~2021-03-26 | XR_ITS ---
EXAMINATION: XR WRIST, RIGHT CLINICAL INFORMATION: Dog bite. COMPARISON: None TECHNIQUE: PA, lateral, and oblique views of the right wrist. FINDINGS: Soft tissue injury at the ulnar aspect of the wrist with soft tissue gas. No fracture or dislocation. The carpal rows are well aligned. Joint spaces are maintained. No radiopaque foreign body. XR/XR wrist RT min 3V IMPRESSION: Soft tissue injury at the ulnar aspect of the wrist with soft tissue gas. No foreign body. No osseous abnormality.
--- NOTE | ~2021-03-26 | XR_ITS ---
EXAMINATION: XR ELBOW, RIGHT XR FOREARM, RIGHT CLINICAL INFORMATION: Pain. Fall one week ago. COMPARISON: None TECHNIQUE: 2 views, 3 images of the right elbow. 2 views of the right forearm. FINDINGS: Right elbow: No fracture or dislocation. Alignment is anatomic. Degenerative changes at the ulnar articulation with the humerus. Osteophytes are present. No elbow joint effusion. The soft tissues are unremarkable. Enthesophyte at the olecranon noted. Right forearm: No fracture or cortical disruption. Soft tissue injury with gas at the wrist. No radiopaque foreign body. XR/XR forearm RT 2V IMPRESSION: Soft tissue injury with gas at the right wrist. No acute osseous abnormality. Degenerative changes of the elbow.
--- NOTE | ~2021-03-26 | XR_ITS ---
EXAMINATION: XR ELBOW, RIGHT XR FOREARM, RIGHT CLINICAL INFORMATION: Pain. Fall one week ago. COMPARISON: None TECHNIQUE: 2 views, 3 images of the right elbow. 2 views of the right forearm. FINDINGS: Right elbow: No fracture or dislocation. Alignment is anatomic. Degenerative changes at the ulnar articulation with the humerus. Osteophytes are present. No elbow joint effusion. The soft tissues are unremarkable. Enthesophyte at the olecranon noted. Right forearm: No fracture or cortical disruption. Soft tissue injury with gas at the wrist. No radiopaque foreign body. XR/XR elbow RT 2V IMPRESSION: Soft tissue injury with gas at the right wrist. No acute osseous abnormality. Degenerative changes of the elbow.
[2021-03-27 00:14] VITALS: BP 138/84; PULSE 76; RESP 20; TEMP 36.3; O2SAT 99; BMI 30.1
--- NOTE | 2021-03-27 02:21 | PC.NURSE ---
right hand swelling, pt reports he fell down the stairs 3 days ago. pt suffered dog bite last night.
[2021-03-27] MEDS: Acetaminophen 325 MG TABLET 650 MG PO (02:29)
--- NOTE | 2021-03-27 02:36 | ED.SKABFB ---
HPI - Skin/Abscess/Foreign Bdy General Chief complaint: Skin/Abscess/Foreign Body Stated complaint: dog bite Time Seen by Provider: 03/27/21 01:46 Source: patient Mode of arrival: ambulatory Limitations: no limitations History of Present Illness HPI narrative: Patient comes emergency room complaining of right hand pain due to dog bite. Patient states his daughter's dog was hit by a car, he attempted to clam picker the dog, the dog turned around and bit the patient in the right hand and wrist. Patient states it is a smaller dog, ?sausage dog?. Patient states that he does not remember when he had his last tetanus shot. Patient also complaining of right upper arm pain, states he fell 1 week ago. Patient states he was doing better with his right hand after the fall, however after the dog bit him in the wrist, now his whole arm hurts Related Data Home Medications Medication Instructions Recorded Confirmed Lantus Solostar U-100 Insulin 42 unit SUBCUT BEDTIME 10/03/20 02/18/21 metformin 1,000 mg BID 10/03/20 02/18/21 omega-3 fatty acids PO BID 10/03/20 02/18/21 omeprazole 20 mg DAILY 10/03/20 02/18/21 amlodipine 1 tab PO QAM 02/01/21 02/18/21 lisinopril 1 tab PO QAM 02/01/21 02/18/21 morphine 1 tab PO Q12H 02/01/21 02/18/21 oxycodone-acetaminophen 1 tab PO Q8H PRN 02/01/21 02/18/21 atorvastatin 80 mg tablet 80 mg PO BEDTIME 02/18/21 02/18/21 ticagrelor 90 mg tablet 90 mg PO BID 02/18/21 02/18/21 Previous Rx's Medication Instructions Recorded metoprolol succinate 50 mg 50 mg PO DAILY #30 tab 11/14/20 tablet,extended release 24 hr aspirin 81 mg tablet,delayed 81 mg PO BEDTIME #30 tab 11/25/20 release heparin(porcine) in 0.45% NaCl 25,000 unit CONTINUOUS IV INFUSION 02/03/21 .Q0M 1 Days ml amoxicillin-pot clavulanate 1 tab PO Q12H #20 tab 03/27/21 [Augmentin] tramadol 50 mg PO TID PRN #10 tab 03/27/21 Allergies Allergy/AdvReac Type Severity Reaction Status Date / Time No Known Allergies Allergy Verified 03/27/21 00:22 [No Known Allergies*] Review of Systems Review of Systems: Constitutional : No Weight loss, No Fever, No Chills, No Night Sweats, No Fatigue, No Malaise ENT/Mouth : No Hearing loss, No Ear Pain, No Nasal Congestion, No Sinus Pain, No Hoarseness, No sore throat, No Rhinorrhea, No Swallowing Difficulty Eyes: No Eye Pain, No Swelling, No Redness, No Foreign Body, No Discharge, No Vision Changes Cardiovascular : No Chest Pain, No SOB, No Dyspnea on Exertion, No Orthopnea, No Edema, No Palpitations Respiratory : No Cough, No Sputum, No Wheezing, No Smoke Exposure, No Dyspnea Gastrointestinal : No Nausea, No Vomiting, No Diarrhea, No Constipation, No abdominal Pain, No Hematochezia, No Melena Genitourinary : no irregular bleeding, No Dysuria, No Urinary Frequency, No Hematuria, No Urinary Incontinence, No Urgency, No Flank Pain, No Urinary Flow Changes, No Hesitancy Musculoskeletal : Complaining of acute on chronic whole arm pain Skin : Bite french to the right wrist dorsal and lateral aspect Neuro : No Weakness, No Numbness, No Paresthesias, No Loss of Consciousness, No Dizziness, No Headache Psych : No Anxiety/Panic, No Depression, No SI/HI/AH/VH, No Social Issues, Heme/Lymph: No Bruising, No Bleeding,No Lymphadenopathy Endocrine : No Polyuria, No Polydipsia, No Temperature Intolerance [facility] Past Medical History Medical History Atherosclerotic cardiovascular disease Chest pain in adult Diabetes Essential hypertension HTN (hypertension) Smoking Type 2 diabetes mellitus with unspecified complications Surgical History History of cardiac cath (~03/2019) S/P cardiac cath Family History Family History Father No problems noted. Mother Leukemia HTN (hypertension) Social History Social History Household Members: Family Housing: House Alcohol intake: never Smoking Status: Current every day smoker Tobacco Type: Cigarette Packs Per Day: 0.25 Cigarettes Per Day: 4 Second Hand Smoke Exposure: No Substance Use Type: Marijuana Advance Directives: No Advance Directives Information Provided: No service: No Current occupational status: unemployed Physical Exam Vital Signs: Vital Signs: Last Vital Signs Temp 97.4 F 03/27/21 00:14 Pulse 76 03/27/21 00:14 Resp 20 03/27/21 00:14 BP 138/84 03/27/21 00:14 Pulse Ox 99 03/27/21 00:14 Body Mass Index 30.1 Appearance: Alert. Oriented X3. No acute distress. Eyes: Pupils equal, round and reactive to light. ENT: Pharynx normal. Neck: Normal inspection. Neck supple. No lymph nodes noted. No crepitus CVS: Normal heart rate and rhythm. Pulses normal. Normal S1 and S2 Respiratory: No respiratory distress. Breath sounds normal. No Wheezing. No rales Abdomen: Soft and nontender. No rigidity. No distention. good BS x4 Skin: Skin warm and dry. Multiple lacerations, wound punctures to the right wrist dorsal aspect and lateral aspect. Visualized in a bloodless field, no tendons visualized Extremities: No lower extremity edema. Mild to moderate swelling in the right hand. Patient is able to flex and extend all fingers including the thumb, hurts but is able to do so Neuro: Oriented X 3. No motor deficit. No sensory deficit. Moving all extermities. No slurred speech. Course Course Course Narrative: The dog bites were thoroughly cleaned and rinsed. I discussed with the patien that we will not be suturing them due to risk of infection. Patient instructed to follow-up with his primary care physician. Patient received the 1st dose of Augmentin and Tdap booster. X-rays show no acute abnormality It is unclear who the dog belongs to. Initially the patient stated that the dog belongs to his daughter, then they said it was a stray, then they said it was a stray that got adopted. The dog has never been to the sales development coordinator. I discussed with the patient that he needs to be immunized for rabies. It was explained to the patient that he will receive immunizations and then he will have follow-up shots, patient declined, patient will follow-up with his primary care physician MDM - Skin/Abscess/Foreign Bdy Imaging Data Right wrist, forearm, elbow: Radiologist's impression: FINDINGS: Right elbow: No fracture or dislocation. Alignment is anatomic. Degenerative changes at the ulnar articulation with the humerus. Osteophytes are present. No elbow joint effusion. The soft tissues are unremarkable. Enthesophyte at the olecranon noted. Right forearm: No fracture or cortical disruption. Soft tissue injury with gas at the wrist. No radiopaque foreign body. XR/XR elbow RT 2V IMPRESSION: Soft tissue injury with gas at the right wrist. No acute osseous abnormality. Degenerative changes of the elbow. Discharge Plan Discharge Clinical Impression: Arm pain, right Dog bite Qualifiers: Encounter type: initial encounter Qualified Code(s): W54.0XXA - Bitten by dog, initial encounter Patient Disposition: Home, Self-Care Instructions: Animal Bite (ED) Additional Instructions: Please follow-up with your primary care physician tomorrow. If you have any worsening or new symptoms, please return to the emergency room or call 911 Prescriptions: New amoxicillin-pot clavulanate [Augmentin] 500-125 mg tablet 1 tab PO Q12H Qty: 20 RF: 0 tramadol 50 mg tablet 50 mg PO TID PRN (Reason: pain) Qty: 10 RF: 0 No Action metoprolol succinate [Toprol XL] 50 mg tablet extended release 24 hr 50 mg PO DAILY Qty: 30 RF: 6 aspirin 81 mg tablet,delayed release (DR/EC) 81 mg PO BEDTIME Qty: 30 RF: 4 omeprazole 20 mg Capsule,Delayed Release(Dr/Ec) 20 mg DAILY RF: 0 metformin 1,000 mg Tablet 1,000 mg BID RF: 0 omega-3 fatty acids Capsule PO BID RF: 0 Lantus Solostar U-100 Insulin 100 unit/mL (3 mL) Insulin Pen 42 unit SUBCUT BEDTIME RF: 0 amlodipine 5 mg tablet 1 tab PO QAM RF: 0 morphine 30 mg tablet extended release 1 tab PO Q12H RF: 0 oxycodone-acetaminophen 5-325 mg tablet 1 tab PO Q8H PRN (Reason: pain) RF: 0 lisinopril 40 mg tablet 1 tab PO QAM RF: 0 heparin(porcine) in 0.45% NaCl 25,000 unit/250 mL Parenteral Solution 25,000 unit continuous IV infusion .Q0M 1 Days RF: 0 ticagrelor 90 mg tablet 90 mg PO BID RF: 0 atorvastatin 80 mg tablet 80 mg PO BEDTIME RF: 0
[2021-03-27] MEDS: Diphth,Pertus(ACell),Tet Adult 0.5 ML SYRINGE IM (03:01)
[2021-03-27] MEDS: Amoxicillin/Potassium Clav 875 MG TABLET PO (03:02)
[2021-03-27] MEDS: oxyCODONE HCl Immed Release 5 MG TABLET PO (03:02)
--- NOTE | 2021-03-27 03:53 | PC.NURSE ---
pt has lacerationto top of right wrist/hand. small lacerations from bite on inferior/lateral right wrist. areas soaked in saline/betadine solution for 20 minutes. laceration on superior wrist still bleeding without direct pressure, wrapped with 4x4 and simone.
--- NOTE | 2021-03-27 04:55 | PC.NURSE ---
PT REQUESTED SLING FOR RIGHT ARM, PLACED ON ARM TO HELP REDUCE SWELLING AND FOR PAIN. PT DOES REPORT THAT DOG BELONGED TO HIS DAUGHTER, BUT DOESN'T BELIEVE ANY VACCINATION RECORDS EXIST. PT ASKED IF THE DOG SURVIVED, BOTH PT AND DAUGHTER NOT SURE. PT TOLD THAT HE NEEDS TO CHECK WITH BOTH VET AND PCP TO CHECK FOR NEED FOR RABIES SHOT. DOG HAD NOT BEEN SICK. PT IS NOT INTERESTED IN RABIES SERIES WHEN SUBJECT WAS BROUGHT UP. PT TOLD THAT HE SHOULD COME BACK TO ER WITHIN 24 HOURS IF SWELLING INCREASED, BLEEDING UNCONTROLLED OR HE CHANGES HIS MIND ABOUT RABIES VACCINE.
== END 2021-03-27 05:00 | disposition home or self-care (01) ==
PROVIDERS: Emergency Provider Emergency Medicine
DX: S61.451A Open bite of right hand, initial encounter (principal); M79.601 Pain in right arm; W54.0XXA Bitten by dog, initial encounter; Y93.9 Activity, unspecified; Y92.410 Unspecified street and highway as the place of occurrence of the external cause; Y99.9 Unspecified external cause status; Z79.899 Other long term (current) drug therapy; F17.210 Nicotine dependence, cigarettes, uncomplicated; Z71.6 Tobacco abuse counseling
CPT/HCPCS: 73070; 73090; 73110; 90715; 99283

== ENCOUNTER 2021-03-28 10:16 | Inpatient (IN) | payer MEDICARE, OTHER, SELFPAY ==
[2021-03-28] VITALS (7 sets, daily range): BP systolic 130–160; BP diastolic 81–93; PULSE 72–79; RESP 14–20; TEMP 36.2–37; O2SAT 98–100; BMI 29.2
--- NOTE | ~2021-03-28 | CT_ITS ---
EXAMINATION: CT HAND WITH CONTRAST, RIGHT CLINICAL INFORMATION: Dog bite. Hand swelling. Concern for osteomyelitis or abscess. COMPARISON: Plain film right hand today TECHNIQUE: Axial images obtained through the right hand after intravenous injection of 85 mL Omnipaque 350. Coronal and sagittal reformatted images are performed at the CT scanner This CT examination was performed using dose optimization techniques as appropriate, variously including the following: *Automated exposure control *Adjustment of mA and/or kV according to patient size (this includes techniques or standardized protocols for targeted exams where dose is matched to indication/reason for exam; i.e. extremities or head) *Use of iterative reconstruction technique DLP: 146 mGy-cm FINDINGS: There is mild subcutaneous edema of the dorsum of the hand with a few small air droplets in the soft tissues. At the thenar eminence at the palmar side of the hand there is a small irregular fluid collection measuring 1 x 1 x 2 cm just deep to the subcutaneous fat involving the muscle consistent with a small intramuscular abscess. Axial image 258/468 series 4, sagittal image 74/156. No osseous abnormality. No focal bone destruction or abnormal periosteal reaction. No radiopaque foreign body. CT/CT hand RT w con IMPRESSION: 2. Mild subcutaneous swelling with small air droplets in the soft tissues of the dorsum of the hand. 2. Small intramuscular abscess involving the thenar eminence at the palm of the hand.
--- NOTE | ~2021-03-28 | MR_ITS ---
EXAMINATION: MRI HAND WITH AND WITHOUT CONTRAST, RIGHT CLINICAL INFORMATION: Right hand swelling/abscess. COMPARISON: CT dated 03/28/2021. TECHNIQUE: Multiplanar MR imaging was obtained through the right hand without contrast material on a 1.5 Ioana magnet before and after the intravenous administration of 10 mL Gadavist. FINDINGS: Again seen is a heterogeneous collection in the thenar musculature (flexor pollicis brevis, abductor pollicis brevis, and opponens pollicis), measuring 3 x 2 x 3 cm and extending to the palmar skin surface at the site of an incision. There is surrounding skin thickening and edema/enhancement in the subcutaneous fat near the palmar wound. This collection is peripheral enhancing with heterogeneous low-signal intensity internally and a rim of soft tissue edema, potentially corresponding to a postoperative hematoma status post irrigation and debridement of the previously seen abscess. Small foci of increased T1 signal intensity within the collection most likely correspond to blood products. Dorsally, there is a heterogeneous 1.6 x 1.1 x 1.5 cm collection in the subcutaneous fat with surrounding subcutaneous edema and hyperenhancement, corresponding to the region of the previously seen subcutaneous gas. An overlying skin incision is also noted in this region. This may represent a residual postoperative collection. Recurrent/residual abscess is also possible. No separate fluid collections are identified within the wrist. There is significant tenosynovial enhancement at the extensor digitorum tendons and, to a lesser extent, the 4th and 5th extensor compartments, favored to be reactive in nature. Early infectious tenosynovitis is possible, though felt to be less likely. Marked subcutaneous edema and enhancement extend distally within the hand into the phalanges without additional abscesses. A 2.4 x 1 x 0.6 cm multilocular collection at the palmar aspect of the radiocarpal joint is most consistent with a ganglion cyst. Bone marrow signal is normal. No evidence of osteomyelitis. Joints appear well preserved. No effusions or synovitis. Intrinsic wrist ligaments and TFCC appear intact. Carpal tunnel and Guyon's canal are unremarkable. MR/MR hand RT wo/w con IMPRESSION: Postprocedural changes and recurrent/residual collections within the thenar musculature and the dorsomedial subcutaneous fat of the wrist. The thenar eminence collection contains significant blood products and is most consistent with a hematoma, though residual infection is certainly possible. The dorsal collection is most consistent with an abscess or postoperative seroma. Reactive dorsal tenosynovitis. No evidence of osteomyelitis.
--- NOTE | ~2021-03-28 | XR_ITS ---
EXAMINATION: RIGHT HAND/WRIST CLINICAL INFORMATION: Dog bite. Question osteomyelitis COMPARISON: None TECHNIQUE: Right hand/wrist 4 views FINDINGS: There is mild loss of PIP and DIP joint space without periarticular spurring. No acute fracture dislocation or subluxation seen. There is no radiopaque foreign body seen in the soft tissues. There is soft tissue gas seen along the ulnar aspect of the wrist. XR/XR hand wrist RT IMPRESSION: There is soft tissue gas seen along the ulnar aspect of wrist. No visible fracture, dislocation or subluxation seen.
[2021-03-28 12:06] LABS: MANUAL DIFF FLAG NO
[2021-03-28 12:09] LABS: Basophils Percent Auto 0.4 % (0-2); Eosinophils Absolute Auto 0.2 X10*3/uL (0.0-0.4); Eosinophils Percent Auto 2.1 % (0-4); Hematocrit 36.6 % (42-52); Imm Gran Abs Auto 0.07 X10*3/uL (0.00-0.03); Imm Gran Pct Auto 0.7 % (0.0-0.4); Lymphocytes Absolute Auto 2.4 X10*3/uL (1.2-4.9); Lymphocytes Percent Auto 24.7 % (20-40); Mean Corpuscular HGB Conc 32.8 g/dl (31.0-36.0); Mean Corpuscular Hemoglobin 27.8 pg (27.0-33.0); Mean Corpuscular Volume 84.7 fL (80-98); Mean Platelet Volume 8.7 fL (9.4-12.4); Monocytes Absolute Auto 0.7 X10*3/uL (0.1-1.2); Monocytes Percent Auto 7.3 % (2-11); Neutrophils Absolute Auto 6.4 X10*3/uL (2.0-8.3); Neutrophils Percent Auto 64.8 % (45-73); Platelet Count 310 X10*3/uL (160-400); Red Blood Count 4.32 X10*6/uL (4.60-5.80); Red Cell Distribution Width 14.6 % (11.0-16.0); White Blood Count 9.8 X10*3/uL (4.8-10.8)
[2021-03-28] MEDS: Piperacillin Sodium/Tazobactam 3.375 GM in 0.9 % Sodium Chloride 50 ML IV ×2 (12:14→21:58)
[2021-03-28 12:18] LABS: Prothrombin Time 12.1 SEC (10.8-13.0)
[2021-03-28 12:21] LABS: Partial Thromboplastin Time 36.3 SEC (24.1-38.0)
[2021-03-28 12:28] LABS: Alanine Aminotransferase 25 U/L (0-40); Alkaline Phosphatase 67 U/L (39-117); Anion Gap 15 (12-20); Aspartate Amino Transferase 17 U/L (5-37); Bilirubin Total 1.6 mg/dL (0.0-1.0); Blood Urea Nitrogen 10 mg/dL (9-16); Calcium 9.2 mg/dL (8.4-10.2); Carbon Dioxide 26 mmol/L (22-29); Chloride 103 mmol/L (96-108); Creatinine Clr Calc Pharmacy 114.2; Estimated Glomerular Filt Rate > 60; Glucose Random 165 mg/dL (60-115); Lactic Acid 2.7 mmol/L (0.5-2.0); Potassium 3.7 mmol/L (3.3-5.1); Sodium 140 mmol/L (135-145); Total Protein 6.9 g/dL (6.5-8.0)
--- NOTE | 2021-03-28 12:30 | PC.NURSE ---
Pt alert, oriented, VSS. Pt bitten on R hand by dog 03/26. Pt reports hand was slightly swollen and has gotten more swollen and painful. R hand warmer than L, able to move fingers but unable to move hand without difficulty. Faint pulse detected via Doppler. IV established, pt resting quietly in room Lab results pending.
[2021-03-28 13:14] LABS: C Reactive Protein 5.72 mg/dL (< or = 0.50)
--- NOTE | 2021-03-28 13:33 | ED_ITS ---
HPI - General Adult General Chief complaint: Recheck/Abnormal Lab/Rx Stated complaint: WOUND CHECK Time Seen by Provider: 03/28/21 11:25 Source: patient Mode of arrival: ambulatory Limitations: no limitations History of Present Illness HPI narrative: Patient presents to ED for increased swelling of right hand and inability to move fingers of flex wrist since being bitten by dog. Patient states he has been on antibiotic for the past 2 days. Patient denies any recent trauma to the head since dog bite. Related Data Home Medications Medication Instructions Recorded Confirmed Lantus Solostar U-100 Insulin 42 unit SUBCUT BEDTIME 10/03/20 03/28/21 metformin 1,000 mg BID 10/03/20 03/28/21 omeprazole 20 mg DAILY 10/03/20 03/28/21 amlodipine 1 tab PO QAM 02/01/21 03/28/21 lisinopril 40 mg PO DAILY 02/01/21 03/28/21 morphine 1 tab PO Q12H 02/01/21 03/28/21 oxycodone-acetaminophen 1 tab PO Q8H PRN 02/01/21 03/28/21 atorvastatin 80 mg tablet 80 mg PO BEDTIME 02/18/21 03/28/21 ticagrelor 90 mg tablet 90 mg PO BID 02/18/21 03/28/21 omega-3 fatty acids-fish oil [Fish 1 cap PO TID 03/28/21 03/28/21 Oil] Previous Rx's Medication Instructions Recorded metoprolol succinate 50 mg 50 mg PO DAILY #30 tab 11/14/20 tablet,extended release 24 hr aspirin 81 mg tablet,delayed 81 mg PO BEDTIME #30 tab 11/25/20 release amoxicillin-pot clavulanate 1 tab PO Q12H #20 tab 03/27/21 [Augmentin] tramadol 50 mg PO TID PRN #10 tab 03/27/21 Allergies Allergy/AdvReac Type Severity Reaction Status Date / Time No Known Allergies Allergy Verified 03/27/21 00:22 [No Known Allergies*] Review of Systems Review of Systems: Yes all other systems are reviewed and are negative Constitutional: Constitutional: Reports as per HPI and Reports no additional constitutional complaints Eyes: Eyes: Reports as per HPI and Reports no additional eye complaints ENT: Reports system reviewed and no additional complaints, except as documented and Reports as per HPI Cardiovascular: Cardiovascular: Reports as per HPI and Reports no additional cardiovascular complaints Respiratory: Respiratory: Reports as per HPI and Reports no additional respiratory complaints Gastrointestinal: Gastrointestinal: Reports as per HPI and Reports no additional gastrointestinal complaints Genitourinary: Genitourinary: Reports no additional male genitourinary complaints and Reports as per HPI Musculoskeletal: Musculoskeletal: Reports no additional musculoskeletal complaints and Reports as per HPI Comments: Significant right hand swelling. Neurologic: Reports system reviewed and no additional complaints, except as documented and Reports as per HPI Psychiatric: Psychiatric: Reports no additional psychiatric complaints and Reports as per HPI [facility] Past Medical History Medical History Acute coronary syndrome Atherosclerotic cardiovascular disease Diabetes Essential hypertension HTN (hypertension) NSTEMI (non-ST elevated myocardial infarction) Smoking Type 2 diabetes mellitus with unspecified complications Surgical History History of cardiac cath (~03/2019) S/P cardiac cath Family History Family History Father No problems noted. Mother Leukemia HTN (hypertension) Social History Social History Household Members: Family Housing: House Alcohol intake: never Smoking Status: Current every day smoker Tobacco Type: Cigarette Packs Per Day: 0.25 Cigarettes Per Day: 4 Smoked in Last 30 Days: Yes Second Hand Smoke Exposure: No Use of substances other than those prescribed or required for medical reasons: No Substance Use Type: Marijuana Advance Directives: Yes Advance Directives on File: Yes Advance Directives Date on File: 02/04/21 service: No Current occupational status: unemployed Physical Exam Vital Signs: Vital Signs: Last Vital Signs Temp 98.6 F 03/28/21 12:55 Pulse 74 03/28/21 16:52 Resp 16 03/28/21 16:52 BP 136/83 03/28/21 16:52 Pulse Ox 98 03/28/21 16:52 Body Mass Index 29.2 Const: General: cooperative, healthy appearing, comfortable, no acute distress, well developed, alert and awake; No lethargic Orientation/consciousness: patient oriented x3 and No lethargic HENMT: Head: Yes normal to inspection, Yes No palpable skull fracture present, Yes normocephalic and Yes atraumatic Eyes: General: appearance normal, both eyes and all related structures Neck: Neck: Yes normal visual inspection, Yes full ROM, Yes no lymphadenopathy, Yes no meningeal signs, Yes trachea midline, Yes supple and No tender Chest: Chest palpation & inspection: normal inspection of the chest and normal palpation of entire chest wall Resp: Effort & Inspection: normal respiratory effort and able to speak in complete sentences Auscultation: clear to auscultation bilaterally Cardio: Jugular venous distension: no JVD Heart sounds: S1 normal heart sound present and S2 normal heart sound present GI: Inspection: Yes normal to inspection and No abdominal wall ecchymosis Palpation (GI): Soft to palpation, not firm, nontender, no guarding and not rigid : General: No CVA tenderness and Yes no CVA tenderness Back/Spine/Pelvis: Back: no CVA tenderness, No CVA tenderness and No back ten derness Skin: General skin exam: no rashes or lesions noted and elasticity normal Neuro: General: patient oriented x3, no meningeal signs and CN's II-XI intact bilaterally Cranial nerves: Yes CN's II-XII intact bilaterally Extrem: Other: Right upper extremity: Positive for significant swelling of right hand on the dorsal and palm aspect with limited range of motion of all fingers and wrist. Negative for red streaks. No pus discharge from bites. General: Yes normal to inspection and Yes full ROM Psych: Appearance: grossly normal, well kempt and not disheveled Course Course Course Narrative: Looks like dog by getting worse. Will do labs blood culture, and antibiotics. Patient have imaging. Will contact tomorrow Reevaluation(s) Reevaluation #1: Orthopedic LAURA Redding made aware of case. She recommends x- ray. Was sent for head CT also. Reevaluation #2: Patient evaluated by Orthopedic LAURA Redding who states history & physical exam does not indicate tenosynosyvitis. She states on her exam patient able to move fingers and have no palm pain. Recommend patient be admitted for antibiotics. Xray negative for foreign body. Medical Decision Making MDM Narrative Medical decision making narrative: hand cellulitis. Lab Data Result diagrams: 03/28/21 11:58 03/28/21 11:58 Labs: Lab Results 03/28/21 03/28/21 03/28/21 Range/Units 11:58 11:58 11:58 WBC 9.8 (4.8-10.8) X10*3/uL RBC 4.32 L (4.60-5.80) X10*6/uL Hgb 12.0 L (14.0-18.0) g/dl Hct 36.6 L (42-52) % MCV 84.7 (80-98) fL MCH 27.8 (27.0-33.0) pg MCHC 32.8 (31.0-36.0) g/dl RDW 14.6 (11.0-16.0) % Plt Count 310 (160-400) X10*3/uL MPV 8.7 L (9.4-12.4) fL Immature Gran % (Auto) 0.7 H (0.0-0.4) % Neut % (Auto) 64.8 (45-73) % Lymph % (Auto) 24.7 (20-40) % Logan % (Auto) 7.3 (2-11) % Eos % (Auto) 2.1 (0-4) % Baso % (Auto) 0.4 (0-2) % Lymph # (Auto) 2.4 (1.2-4.9) X10*3/uL Logan # (Auto) 0.7 (0.1-1.2) X10*3/uL Eos # (Auto) 0.2 (0.0-0.4) X10*3/uL Baso # (Auto) 0.0 (0.0-0.2) X10*3/uL Abs Immat Gran (auto) 0.07 H (0.00-0.03) X10*3/uL Absolute Neuts (auto) 6.4 (2.0-8.3) X10*3/uL Absolute Nucleated RBC 0.000 (0.0-0.012) X10*3/uL Nucleated RBC % (auto) 0.0 (0.0-0.2) /100WBC ESR (0-15) MM/HR PT (10.8-13.0) SEC INR (0.9-1.1) APTT (24.1-38.0) SEC Sodium 140 (135-145) mmol/L Potassium 3.7 (3.3-5.1) mmol/L Chloride 103 (96-108) mmol/L Carbon Dioxide 26 (22-29) mmol/L Anion Gap 15 (12-20) BUN 10 (9-16) mg/dL Creatinine 0.80 (0.5-1.4) mg/dL Estim Creat Clear Calc 114.2 Estimated GFR > 60 Random Glucose 165 H D (60-115) mg/dL Lactic Acid 2.7 H* (0.5-2.0) mmol/L Lactic Acid Fup @ 2Hr (0.5-2.0) mmol/L Calcium 9.2 (8.4-10.2) mg/dL Total Bilirubin 1.6 H (0.0-1.0) mg/dL AST 17 (5-37) U/L ALT 25 (0-40) U/L Alkaline Phosphatase 67 (39-117) U/L C-Reactive Protein 5.72 H (< or = 0.50) mg/dL Total Protein 6.9 (6.5-8.0) g/dL Albumin 4.0 (3.5-5.0) g/dL 03/28/21 03/28/21 03/28/21 Range/Units 11:58 11:58 14:07 WBC (4.8-10.8) X10*3/uL RBC (4.60-5.80) X10*6/uL Hgb (14.0-18.0) g/dl Hct (42-52) % MCV (80-98) fL MCH (27.0-33.0) pg MCHC (31.0-36.0) g/dl RDW (11.0-16.0) % Plt Count (160-400) X10*3/uL MPV (9.4-12.4) fL Immature Gran % (Auto) (0.0-0.4) % Neut % (Auto) (45-73) % Lymph % (Auto) (20-40) % Logan % (Auto) (2-11) % Eos % (Auto) (0-4) % Baso % (Auto) (0-2) % Lymph # (Auto) (1.2-4.9) X10*3/uL Logan # (Auto) (0.1-1.2) X10*3/uL Eos # (Auto) (0.0-0.4) X10*3/uL Baso # (Auto) (0.0-0.2) X10*3/uL Abs Immat Gran (auto) (0.00-0.03) X10*3/uL Absolute Neuts (auto) (2.0-8.3) X10*3/uL Absolute Nucleated RBC (0.0-0.012) X10*3/uL Nucleated RBC % (auto) (0.0-0.2) /100WBC ESR 48 H (0-15) MM/HR PT 12.1 (10.8-13.0) SEC INR 1.0 (0.9-1.1) APTT 36.3 (24.1-38.0) SEC Sodium (135-145) mmol/L Potassium (3.3-5.1) mmol/L Chloride (96-108) mmol/L Carbon Dioxide (22-29) mmol/L Anion Gap (12-20) BUN (9-16) mg/dL Creatinine (0.5-1.4) mg/dL Estim Creat Clear Calc Estimated GFR Random Glucose (60-115) mg/dL Lactic Acid (0.5-2.0) mmol/L Lactic Acid Fup @ 2Hr 3.2 H* (0.5-2.0) mmol/L Calcium (8.4-10.2) mg/dL Total Bilirubin (0.0-1.0) mg/dL AST (5-37) U/L ALT (0-40) U/L Alkaline Phosphatase (39-117) U/L C-Reactive Protein (< or = 0.50) mg/dL Total Protein (6.5-8.0) g/dL Albumin (3.5-5.0) g/dL Discharge Plan Discharge Clinical Impression: Dog bite, Cellulitis Patient Disposition: Admitted As Inpatient
[2021-03-28 13:44] LABS: Erythrocyte Sedimentation Rate 48 MM/HR (0-15)
[2021-03-28] MEDS: 0.9 % Sodium Chloride 1,000 ML 999 ML IV ×3 (13:57→22:07)
[2021-03-28 14:04] LABS: Reflex Lactate? Lactic Acid Added
[2021-03-28 14:40] LABS: ~Lactic Acid-LAB USE ONLY 3.2 mmol/L (0.5-2.0)
[2021-03-28] MEDS: iohexoL 350 MG/ML 100 ML INFUS..BTL IV (15:25)
[2021-03-28 16:13] LABS: Reflex Lactate? 2 Y
--- NOTE | 2021-03-28 16:53 | PC.NURSE ---
IV positional fluids continue to infuse. Pt reports pain unchanged at this time. Offered cool pack, pt declines at this time.
--- NOTE | 2021-03-28 17:07 | PM.IMHP ---
History of Present Illness Date of Service: 03/28/21 Chief Complaint: Right arm pain 61-year-old male presented with 2-3 days of right wrist pain and swelling spreading to hand and moving up arm. Patient states that he fell down the stairs 5 days prior to presentation, and injured his right wrist. Not appear to be significantly injured at that point. Three days prior to presentation patient got bitten by a dog and his right wrist. Since then right wrist and hand has become swollen, erythematous, and painful. Patient does note some chills but denies fevers. Continues to worsen so he came to the ED. Review of Systems Review of Systems: Constitutional: Denies fever, + Chills Eyes: denies blurry vision ENT: denies sore throat CVS: denies chest pain Respiratory: Denies dyspnea GI: no abdominal pain : denies dysuria MSK: denies neck pain Skin: See HPI Neuro: denies specific motor weakness Psych: denies suicidal ideation Endocrine: denies heat/cold intoleratnce Hematologic: denies easy bleeding Allergy: denies hives [facility] Medical History Acute coronary syndrome Atherosclerotic cardiovascular disease Diabetes Essential hypertension HTN (hypertension) NSTEMI (non-ST elevated myocardial infarction) Smoking Type 2 diabetes mellitus with unspecified complications Family History Father No problems noted. Mother Leukemia HTN (hypertension) Family history: reviewed and not pertinent Surgical History History of cardiac cath (~03/2019) S/P cardiac cath Social History Household Members: Family Housing: House Alcohol intake: never Smoking Status: Current every day smoker Tobacco Type: Cigarette Packs Per Day: 0.25 Cigarettes Per Day: 4 Smoked in Last 30 Days: Yes Second Hand Smoke Exposure: No Use of substances other than those prescribed or required for medical reasons: No Substance Use Type: Marijuana Advance Directives: Yes Advance Directives on File: Yes Advance Directives Date on File: 02/04/21 service: No Current occupational status: unemployed Meds Allergies Allergy/AdvReac Type Severity Reaction Status Date / Time No Known Allergies Allergy Verified 03/27/21 00:22 [No Known Allergies*] Active Medications: Current Medications Generic Name Dose Route Start Last Admin Trade Name Angela PRN Reason Stop Dose Admin Morphine Sulfate 2 mg 03/28/21 17:03 Morphine Sulfate 2 Mg/Ml Cartridge IVPUSH Q5M PRN Pain, Moderate (Pain Scale 4-6 Pharmacy Consult 1 each 03/28/21 16:25 Consult Rx Perform Med Rec MISCELLANE ONCE PRN Consult order Home Medications Medication Instructions Recorded Confirmed Last Taken Type Lantus Solostar U-100 Insulin 48 unit SUBCUT BEDTIME 10/03/20 03/28/21 10/02/20 History metformin 1,000 mg BID 10/03/20 03/28/21 10/02/20 History omeprazole 20 mg DAILY 10/03/20 03/28/21 10/02/20 History amlodipine 1 tab PO QAM 02/01/21 03/28/21 Unknown History lisinopril 40 mg PO DAILY 02/01/21 03/28/21 Unknown History morphine 1 tab PO Q12H 02/01/21 03/28/21 Unknown History oxycodone-acetaminophen 1 tab PO Q8H PRN 02/01/21 03/28/21 Unknown History atorvastatin 80 mg tablet 80 mg PO BEDTIME 02/18/21 03/28/21 Unknown History ticagrelor 90 mg tablet 90 mg PO BID 02/18/21 03/28/21 Unknown History omega-3 fatty acids-fish oil [Fish 1 cap PO TID 03/28/21 03/28/21 Unknown History Oil] Physical Exam Vital Signs and Narrative: Vital Signs: Last Vital Signs Temp 98.6 F 03/28/21 12:55 Pulse 74 03/28/21 16:52 Resp 16 03/28/21 16:52 BP 136/83 03/28/21 16:52 Pulse Ox 98 03/28/21 16:52 Body Mass Index 29.2 General: no acute distress HEENT: atraumatic Neck: normal to visual inspection CVS: S1, S2, RRR Resp: CTA bilateral Chest: non tender GI: soft, non tender, non distended : no CVA tenderness Skin: see pictures Extremities: see pictures Neuro: Oriented X3, grossly intact Psych: cooperative Results Labs CBC and Chem 7: 03/28/21 11:58 03/28/21 11:58 Labs: Laboratory Results - last 24 hr 03/28/21 03/28/21 03/28/21 11:58 11:58 11:58 MCV 84.7 MCH 27.8 MCHC 32.8 RDW 14.6 Plt Count 310 MPV 8.7 L Immature Gran % (Auto) 0.7 H Neut % (Auto) 64.8 Lymph % (Auto) 24.7 [place] % (Auto) 7.3 Eos % (Auto) 2.1 Baso % (Auto) 0.4 Lymph # (Auto) 2.4 [place] # (Auto) 0.7 Eos # (Auto) 0.2 Baso # (Auto) 0.0 Abs Immat Gran (auto) 0.07 H Absolute Neuts (auto) 6.4 Absolute Nucleated RBC 0.000 Nucleated RBC % (auto) 0.0 ESR PT INR APTT Anion Gap 15 Estim Creat Clear Calc 114.2 Estimated GFR > 60 Random Glucose 165 H D Lactic Acid 2.7 H* Lactic Acid Fup @ 2Hr Calcium 9.2 Total Bilirubin 1.6 H AST 17 ALT 25 Alkaline Phosphatase 67 C-Reactive Protein 5.72 H Total Protein 6.9 Albumin 4.0 03/28/21 03/28/21 03/28/21 11:58 11:58 14:07 MCV MCH MCHC RDW Plt Count MPV Immature Gran % (Auto) Neut % (Auto) Lymph % (Auto) [place] % (Auto) Eos % (Auto) Baso % (Auto) Lymph # (Auto) [place] # (Auto) Eos # (Auto) Baso # (Auto) Abs Immat Gran (auto) Absolute Neuts (auto) Absolute Nucleated RBC Nucleated RBC % (auto) ESR 48 H PT 12.1 INR 1.0 APTT 36.3 Anion Gap Estim Creat Clear Calc Estimated GFR Random Glucose Lactic Acid Lactic Acid Fup @ 2Hr 3.2 H* Calcium Total Bilirubin AST ALT Alkaline Phosphatase C-Reactive Protein Total Protein Albumin Imaging Radiologist's Impressions: Impressions Hand/Wrist X-Ray 03/28/21 13:00 IMPRESSION: There is soft tissue gas seen along the ulnar aspect of wrist. No visible fracture, dislocation or subluxation seen. Assessment and Plan (1) Cellulitis: Status: Acute (2) Dog bite of extremity: Status: Acute 61-year-old male presented with right upper extremity pain and swelling after dog bite Dog bite associated cellulitis Vancomycin Zosyn Id eval Seen by orthopedics in the ED, no need for surgery at this time CAD Recent stent Aspirin, Brilinta, statin Diabetes Hold metformin Basal bolus insulin Hypertension Amlodipine, Toprol, lisinopril
[2021-03-28 17:40] LABS: COVID-19 Test Negative (Negative); IDNOW Serial# 9DD0AD1C
[2021-03-28] MEDS: Morphine Sulfate 2 MG/ML CARTRIDGE IVPUSH (17:40)
--- NOTE | 2021-03-28 19:48 | PC.NURSE ---
Called Med/Surg unit to give RN to RN report. Med/plant etiologist unavailable at this time, awaiting call back. Plan to transfer/admit to room 353.
--- NOTE | 2021-03-28 20:58 | PC.NURSE ---
Pt requested for large amount of juan to be stored in safe with hospital security. Paperwork filled out with security compliance specialist at bedside. Counted $1135 in juan, wallet with credit cards/ID, structural ironworker, wrist watch, and keys. All belongings sealed and stored in safe, witnessed by security compliance specialist. SHEREE Pat notified.
--- NOTE | 2021-03-28 21:03 | PM.EVENT ---
Event Note Date of Service: 03/28/21 Event Note: patient seen at bedside in ED -patient has swelling to the dorsum of the wrist and hand -no significant redness -mild tenderness along the thumb which he coorelates to the fall 5 days ago -dog bites over the dorsum of the wrist with minimal swelling -he is able to flex and extend all digits -no notable abscess -recommend IV abx, no surgical intervention at this time -soak with warm water -re-eval in 24 hours
[2021-03-28 21:18] LABS: Glucose, Whole Blood 156 mg/dL (60-115)
[2021-03-28] MEDS: Morphine Sulfate ER 30 MG TABLET.ER PO (21:58)
[2021-03-28] MEDS: Enoxaparin Sodium 40 MG/0.4 ML SYRINGE SUBCUT (21:58)
[2021-03-28] MEDS: Aspirin Enteric Coated 81 MG TABLET.DR PO (21:59)
[2021-03-28] MEDS: Ticagrelor 90 MG TABLET PO (22:07)
[2021-03-28] MEDS: oxyCODONE HCl Immed Release 5 MG TABLET PO (23:15)
[2021-03-29] VITALS: BP 131/83; PULSE 75; RESP 16; TEMP 36.9; O2SAT 99
[2021-03-29] MEDS: vancomycin HCL 1,000 MG in 0.9 % Sodium Chloride 250 ML 270 MG IV (01:20)
[2021-03-29 06:01] LABS: MANUAL DIFF FLAG NO
[2021-03-29 06:06] LABS: Basophils Percent Auto 0.5 % (0-2); Eosinophils Absolute Auto 0.3 X10*3/uL (0.0-0.4); Eosinophils Percent Auto 3.3 % (0-4); Hematocrit 33.7 % (42-52); Imm Gran Abs Auto 0.04 X10*3/uL (0.00-0.03); Imm Gran Pct Auto 0.5 % (0.0-0.4); Lymphocytes Absolute Auto 2.7 X10*3/uL (1.2-4.9); Lymphocytes Percent Auto 33.2 % (20-40); Mean Corpuscular HGB Conc 32.6 g/dl (31.0-36.0); Mean Corpuscular Hemoglobin 27.6 pg (27.0-33.0); Mean Corpuscular Volume 84.7 fL (80-98); Mean Platelet Volume 8.9 fL (9.4-12.4); Monocytes Absolute Auto 0.6 X10*3/uL (0.1-1.2); Monocytes Percent Auto 7.8 % (2-11); Neutrophils Absolute Auto 4.4 X10*3/uL (2.0-8.3); Neutrophils Percent Auto 54.7 % (45-73); Platelet Count 300 X10*3/uL (160-400); Red Blood Count 3.98 X10*6/uL (4.60-5.80); Red Cell Distribution Width 14.5 % (11.0-16.0)
[2021-03-29] MEDS: Omeprazole 20 MG CAPSULE.DR PO (06:09)
[2021-03-29] MEDS: Piperacillin Sodium/Tazobactam 3.375 GM in 0.9 % Sodium Chloride 50 ML IV ×2 (06:10→11:03)
[2021-03-29 06:30] LABS: Anion Gap 11 (12-20); Blood Urea Nitrogen 10 mg/dL (9-16); Calcium 8.5 mg/dL (8.4-10.2); Carbon Dioxide 27 mmol/L (22-29); Chloride 107 mmol/L (96-108); Creatinine Clr Calc Pharmacy 111.4; Estimated Glomerular Filt Rate > 60; Glucose Random 166 mg/dL (60-115); Potassium 3.8 mmol/L (3.3-5.1); Sodium 141 mmol/L (135-145)
[2021-03-29 07:35] VITALS: BP 120/77; PULSE 69; RESP 18; TEMP 36.3; O2SAT 100
[2021-03-29 07:41] LABS: Glucose, Whole Blood 148 mg/dL (60-115)
[2021-03-29] MEDS: Morphine Sulfate ER 30 MG TABLET.ER PO ×2 (09:19→20:22)
[2021-03-29] MEDS: amLODIPine Besylate 5 MG TABLET PO (09:20)
[2021-03-29] MEDS: Atorvastatin Calcium 80 MG TABLET PO (09:20)
[2021-03-29] MEDS: lisinopriL 40 MG TABLET PO (09:20)
[2021-03-29] MEDS: Ticagrelor 90 MG TABLET PO ×2 (09:20→20:23)
[2021-03-29] MEDS: Metoprolol Succinate ER 50 MG TAB.ER.24H PO (09:20)
[2021-03-29] MEDS: 0.9 % Sodium Chloride Flush 3 ML SYRINGE IVFLUSH ×3 (09:21→23:14)
--- NOTE | 2021-03-29 09:28 | MHC.CM.PN ---
PATIENT LIVES ALONE. HE IS INDEPENDENT WITH ALL ADLS. NO DME OR [facility] SERVICES NO HCP ON FILE AND PATIENT WILL CONSIDER ASSIGNING AT LEAST ONE AGENT. HE IS AWARE THAT CASE MANAGEMENT CAN ASSIST IF HE DECIDES. PLAN IS CONTINUE IV ABX. CASE MANAGEMENT FOLLOWING. IMM 03/29 IN CHART
--- NOTE | 2021-03-29 11:15 | HO.PM.IMPN ---
Subjective Subjective Date of Service: 03/29/21 Interval History: no changes Cardiovascular Cardiovascular: Reports no additional cardiovascular complaints Gastrointestinal Gastrointestinal: Reports no additional gastrointestinal complaints Physical Exam Vital Signs: Vital Signs: Last Vital Signs Temp 97.4 F 03/29/21 07:35 Pulse 69 03/29/21 07:35 Resp 18 03/29/21 07:35 BP 120/77 03/29/21 07:35 Pulse Ox 100 03/29/21 07:35 Body Mass Index 29.2 General: AO X 3, no acute distress Resp: CTA bilateral CVS: S1,S2,RRR GI: soft, non tender, non distended Neuro: motor grossly intact Psych: appropriate affect ext: right hand swelling - see pictures from previous note Objective Data Current Medications Generic Name Dose Route Start Last Admin Trade Name Guiq PRN Reason Stop Dose Admin Amlodipine Besylate 5 mg 03/29/21 09:00 03/29/21 09:20 Amlodipine Besylate 5 Mg Tablet PO 5 mg DAILY CELSO Administration Protocol Aspirin 81 mg 03/28/21 21:00 03/28/21 21:59 Aspirin Enteric Coated 81 Mg Tablet.Dr PO 81 mg BEDTIME CELSO Administration Atorvastatin Calcium 80 mg 03/29/21 09:00 03/29/21 09:20 Atorvastatin Calcium 80 Mg Tablet PO 80 mg DAILY CELSO Administration Enoxaparin Sodium 40 mg 03/28/21 18:00 03/28/21 21:58 Enoxaparin Sodium 40 Mg/0.4 Ml Syringe SUBCUT 40 mg Q24H CELSO Administration Vancomycin HCl 1,000 mg/ 270 mls @ 270 mls/hr 03/29/21 00:00 03/29/21 02:57 Sodium Chloride IV Infused Q12H CELSO Infusion Piperacillin Sod/Tazobactam 50 mls @ 100 mls/hr 03/28/21 23:00 03/29/21 11:03 Sod 3.375 gm/ Sodium Chloride IV 100 mls/hr Q6H CELSO Administration Insulin Glargine 42 unit 03/28/21 21:00 03/28/21 22:00 Insulin Glargine,Hum.Rec.Anlog 100 Unit/Ml 10 Ml Vial SUBCUT Not Given BEDTIME CELSO Insulin Human Lispro 0 unit 03/28/21 21:00 03/29/21 08:06 Insulin Lispro 100 Unit/Ml 3 Ml Vial SUBCUT Not Given [facility] Protocol Lisinopril 40 mg 03/29/21 09:00 03/29/21 09:20 Lisinopril 40 Mg Tablet PO 40 mg DAILY CELSO Administration Protocol Metoprolol Succinate 50 mg 03/29/21 09:00 03/29/21 09:20 Metoprolol Succinate Er 50 Mg Tab.Er.24h PO 50 mg DAILY CELSO Administration Protocol Morphine Sulfate 30 mg 03/28/21 20:00 03/29/21 09:19 Morphine Sulfate Er 30 Mg Tablet.Er PO 30 mg Q12H CELSO Administration Omeprazole 20 mg 03/29/21 06:30 03/29/21 06:09 Omeprazole 20 Mg Capsule.Dr PO 20 mg DAILY@0630 [facility] Administration Oxycodone HCl 5 mg 03/28/21 17:29 03/28/21 23:15 Oxycodone Hcl Immed Release 5 Mg Tablet PO 5 mg Q8H PRN Administration Pain, Severe (Pain Scale 7-10) Pharmacy Consult 1 each 03/28/21 16:25 Consult Rx Perform Med Rec MISCELLANE ONCE PRN Consult order Pharmacy Consult 1 each 03/28/21 17:16 Consult Rx Vancomycin Dosing MISCELLANE DAILY PRN Consult order Sodium Chloride 3 ml 03/29/21 00:00 03/29/21 09:21 0.9 % Sodium Chloride Flush 3 Ml Syringe IVFLUSH 3 ml QSHIFT CELSO Administration Ticagrelor 90 mg 03/28/21 21:00 03/29/21 09:20 Ticagrelor 90 Mg Tablet PO 90 mg BID CELSO Administration Labs CBC & Chem 7: 03/29/21 05:39 03/29/21 05:39 Assessment and Plan (1) Cellulitis: Status: Acute Assessment and Plan: 61-year-old male presented with right upper extremity pain and swelling after dog bite Dog bite associated cellulitis no improvement so far ID appreciated will change to clinda and levaquin ortho following CAD Recent stent Aspirin, Brilinta, statin Diabetes Hold metformin Basal bolus insulin Hypertension Amlodipine, Toprol, lisinopril
[2021-03-29] MEDS: Insulin Lispro 100 UNIT/ML 3 ML VIAL SUBCUT (11:20)
[2021-03-29] MEDS: vancomycin HCL 1,000 MG in 0.9 % Sodium Chloride 250 ML 250 MG IV (11:21)
[2021-03-29 11:23] LABS: Glucose, Whole Blood 165 mg/dL (60-115)
[2021-03-29] MEDS: levoFLOXacin/D5W 500 MG/100 ML PIGGYBACK 100 MG IV (12:51)
[2021-03-29] MEDS: oxyCODONE HCl Immed Release 5 MG TABLET PO ×2 (12:59→23:15)
--- NOTE | 2021-03-29 13:56 | PM.EVENT ---
Event Note Date of Service: 03/29/21 Event Note: patient seen and examined at bedside today -he states the right wrist feels a bit more swollen, tenderness along the thumb and radial aspect of the wrist CT of the hand/wrist shows: 2. Mild subcutaneous swelling with small air droplets in the soft tissues of the dorsum of the hand. 2. Small intramuscular abscess involving the thenar eminence at the palm of the hand. There is no notable area to drain or incise at this time -continue IV abx and re eval tomorrow -recommend warm water soaks of the hand 4x a day
[2021-03-29] MEDS: Clindamycin Phosphate/D5W 600 MG/50 ML PIGGYBACK 100 MG IV ×2 (14:00→20:17)
[2021-03-29 15:27] VITALS: BP 144/90; PULSE 76; RESP 20; TEMP 36.2; O2SAT 100
[2021-03-29 16:13] LABS: Glucose, Whole Blood 143 mg/dL (60-115)
[2021-03-29] MEDS: Enoxaparin Sodium 40 MG/0.4 ML SYRINGE SUBCUT (17:10)
[2021-03-29] MEDS: Aspirin Enteric Coated 81 MG TABLET.DR PO (20:22)
[2021-03-29 21:03] LABS: Glucose, Whole Blood 156 mg/dL (60-115)
[2021-03-29 23:29] VITALS: BP 146/89; PULSE 72; RESP 18; TEMP 36.1; O2SAT 100
[2021-03-30] VITALS (11 sets, daily range): BP systolic 122–159; BP diastolic 75–108; PULSE 64–95; RESP 15–18; TEMP 36.2–36.8; O2SAT 93–100
[2021-03-30] MEDS: Clindamycin Phosphate/D5W 600 MG/50 ML PIGGYBACK 100 MG IV ×3 (04:59→21:12)
[2021-03-30] MEDS: Omeprazole 20 MG CAPSULE.DR PO (05:04)
[2021-03-30 07:38] LABS: Glucose, Whole Blood 155 mg/dL (60-115)
[2021-03-30] MEDS: 0.9 % Sodium Chloride Flush 3 ML SYRINGE IVFLUSH ×3 (08:04→21:09)
[2021-03-30] MEDS: amLODIPine Besylate 5 MG TABLET PO (08:04)
[2021-03-30] MEDS: Atorvastatin Calcium 80 MG TABLET PO (08:05)
[2021-03-30] MEDS: oxyCODONE HCl Immed Release 5 MG TABLET PO ×2 (08:05→22:51)
[2021-03-30] MEDS: lisinopriL 40 MG TABLET PO (08:05)
[2021-03-30] MEDS: Morphine Sulfate ER 30 MG TABLET.ER PO ×2 (08:05→21:06)
[2021-03-30] MEDS: Metoprolol Succinate ER 50 MG TAB.ER.24H PO (08:05)
--- NOTE | 2021-03-30 08:57 | PM.HPOR ---
History of Present Illness History of Present Illness Date of Service: 03/30/21 Chief complaint: Dog bite cellulitis Narrative: Cruz Graham is a 61 year old male who presented to the ED after susatining a dog bit 3-5 days ago. He was on PO abx, but developed worsened pain and swelling and returned to ED. He was admitted to the hospital service for IV abx and orthopedics was consulted for further recommendations. Review of Systems Review of Systems: Yes all other systems are reviewed and are negative [facility] Past Medical History Medical History Acute coronary syndrome Atherosclerotic cardiovascular disease Diabetes Essential hypertension HTN (hypertension) NSTEMI (non-ST elevated myocardial infarction) Smoking Type 2 diabetes mellitus with unspecified complications Family History Family History Father No problems noted. Mother Leukemia HTN (hypertension) Family history: reviewed and not pertinent Surgical History Surgical History History of cardiac cath (~03/2019) S/P cardiac cath Social History Social History Household Members: None Housing: Apartment Do you presently have visiting nurse or other home services: No Alcohol intake: never Smoking Status: Current every day smoker Tobacco Type: Cigarette Packs Per Day: 0.25 Cigarettes Per Day: 4 Smoked in Last 30 Days: Yes Second Hand Smoke Exposure: No Use of substances other than those prescribed or required for medical reasons: No Substance Use Type: Marijuana Currently Displaying Signs/Symptoms of Drug Intoxication Withdrawal: No Have you been hit, kicked, punched, or otherwise hurt by someone within the past year? If so, by whom?: No Do you feel safe in your current relationship?: No Is there a partner from a previous relationship who is making you feel unsafe now?: No Are you made to feel afraid or neglected: No Spiritual Healthcare Practices: n/a Mosque Healthcare Practices: n/a Cultural Healthcare Practices: n/a Advance Directives: Yes Advance Directives on File: Yes Advance Directives Date on File: 02/04/21 Do you have thoughts of harming others: None Do you have a plan to hurt others: No Plan Recently lost weight without trying: No Eating poorly because of decreased appetite: No Poor oral hygiene: No service: No Current occupational status: unemployed Meds Allergies Allergy/AdvReac Type Severity Reaction Status Date / Time No Known Allergies Allergy Verified 03/27/21 00:22 [No Known Allergies*] Active Medications: Current Medications Generic Name Dose Route Start Last Admin Trade Name Angela PRN Reason Stop Dose Admin Amlodipine Besylate 5 mg 03/29/21 09:00 03/30/21 08:04 Amlodipine Besylate 5 Mg Tablet PO 5 mg DAILY CELSO Administration Protocol Aspirin 81 mg 03/28/21 21:00 03/29/21 20:22 Aspirin Enteric Coated 81 Mg Tablet.Dr PO 81 mg BEDTIME CELSO Administration Atorvastatin Calcium 80 mg 03/29/21 09:00 03/30/21 08:05 Atorvastatin Calcium 80 Mg Tablet PO 80 mg DAILY CELSO Administration Enoxaparin Sodium 40 mg 03/28/21 18:00 03/29/21 17:10 Enoxaparin Sodium 40 Mg/0.4 Ml Syringe SUBCUT 40 mg Q24H CELSO Administration Clindamycin Phosphate 600 mg in 50 mls @ 100 mls/hr 03/29/21 12:00 03/30/21 05:39 Cleocin IV Infused Q8H CELSO Infusion Levofloxacin 500 mg in 100 mls @ 100 mls/hr 03/29/21 12:00 03/29/21 13:59 Levaquin IV Infused Q24H CELSO Infusion Insulin Glargine 42 unit 03/28/21 21:00 03/29/21 21:20 Insulin Glargine,Hum.Rec.Anlog 100 Unit/Ml 10 Ml Vial SUBCUT Not Given BEDTIME CELSO Insulin Human Lispro 0 unit 03/28/21 21:00 03/30/21 07:59 Insulin Lispro 100 Unit/Ml 3 Ml Vial SUBCUT Not Given QIDACHS [facility] Protocol Lisinopril 40 mg 03/29/21 09:00 03/30/21 08:05 Lisinopril 40 Mg Tablet PO 40 mg DAILY CELSO Administration Protocol Metoprolol Succinate 50 mg 03/29/21 09:00 03/30/21 08:05 Metoprolol Succinate Er 50 Mg Tab.Er.24h PO 50 mg DAILY CELSO Administration Protocol Morphine Sulfate 30 mg 03/28/21 20:00 03/30/21 08:05 Morphine Sulfate Er 30 Mg Tablet.Er PO 30 mg Q12H CELSO Administration Omeprazole 20 mg 03/29/21 06:30 03/30/21 05:04 Omeprazole 20 Mg Capsule.Dr PO 20 mg DAILY@0630 CELSO Administration Oxycodone HCl 5 mg 03/28/21 17:29 03/30/21 08:05 Oxycodone Hcl Immed Release 5 Mg Tablet PO 5 mg Q8H PRN Administration Pain, Severe (Pain Scale 7-10) Pharmacy Consult 1 each 03/28/21 16:25 Consult Rx Perform Med Rec MISCELLANE ONCE PRN Consult order Sodium Chloride 3 ml 03/29/21 00:00 03/30/21 08:04 0.9 % Sodium Chloride Flush 3 Ml Syringe IVFLUSH 3 ml QSHIFT [facility] Administration Ticagrelor 90 mg 03/28/21 21:00 03/30/21 08:07 Ticagrelor 90 Mg Tablet PO Not Given BID [facility] Home Medications Medication Instructions Recorded Confirmed Last Taken Type Lantus Solostar U-100 Insulin 42 unit SUBCUT BEDTIME 10/03/20 03/28/21 10/02/20 History metformin 1,000 mg BID 10/03/20 03/28/21 10/02/20 History omeprazole 20 mg DAILY 10/03/20 03/28/21 10/02/20 History amlodipine 1 tab PO QAM 02/01/21 03/28/21 Unknown History lisinopril 40 mg PO DAILY 02/01/21 03/28/21 Unknown History morphine 1 tab PO Q12H 02/01/21 03/28/21 Unknown History oxycodone-acetaminophen 1 tab PO Q8H PRN 02/01/21 03/28/21 Unknown History atorvastatin 80 mg tablet 80 mg PO BEDTIME 02/18/21 03/28/21 Unknown History ticagrelor 90 mg tablet 90 mg PO BID 02/18/21 03/28/21 Unknown History omega-3 fatty acids-fish oil [Fish 1 cap PO TID 03/28/21 03/28/21 Unknown History Oil] Physical Exam Vital Signs: Vital Signs: Last Vital Signs Temp 97.6 F 03/30/21 07:21 Pulse 64 03/30/21 07:21 Resp 18 03/30/21 07:21 BP 122/75 03/30/21 07:21 Pulse Ox 100 03/30/21 07:21 Body Mass Index 29.2 Const: General: cooperative, healthy appearing, comfortable, no acute distress, well developed and alert Orientation/consciousness: patient oriented x3 HENMT: Head: Yes normal to inspection, Yes normocephalic and Yes atraumatic Eyes: General: appearance normal, both eyes and all related structures Neck: Neck: Yes normal visual inspection and Yes no lymphadenopathy Resp: Effort & Inspection: normal respiratory effort and able to speak in complete sentences Cardio: Rate: regular rate Peripheral pulses: Peripheral pulses 2+ throughout GI: Inspection: Yes normal to inspection Palpation (GI): Soft to palpation Skin: General skin exam: no rashes or lesions noted Neuro: General: patient oriented x3 Extrem: Other: Right hand swelling and abscess to the thenar aspect of the hand. There are bite french over the dorsum of the wrist. No open wounds. Minimal redness. Minimal swelling to the wrist. No pain with axial loading of the wrist. NVI. Pulses present. Xrays: There is soft tissue gas seen along the ulnar aspect of wrist. No visible fracture, dislocation or subluxation seen. Psych: Appearance: grossly normal Mental Status: mental status grossly normal Results Labs Result Diagrams: 03/29/21 05:39 03/29/21 05:39 Labs: Abnormal lab results 03/29/21 03/29/21 03/29/21 Range/Units 11:16 16:09 20:52 POC Glucose 165 H 143 H 156 H (60-115) mg/dL 03/30/21 Range/Units 07:20 POC Glucose 155 H (60-115) mg/dL H & H 03/28/21 03/29/21 Range/Units 11:58 05:39 Hgb 12.0 L 11.0 L (14.0-18.0) g/dl Hct 36.6 L 33.7 L (42-52) % Coagulation 03/28/21 Range/Units 11:58 INR 1.0 (0.9-1.1) All other labs normal. Assessment and Plan (1) Abscess of hand, right: Status: Acute I discussed the case with Dr Neville and explained the extent of the injury to the patient and options available which include surgical intervention. I explained the procedure in detail along with the length of recovery and rehab course. I explained the risk, benefits and alternatives. Risk including, but not limited to infection, blood clots, bleeding, non union or malunion and nerve/tissue damage to surrounding areas. I answered all their questions and with their understanding they have consented to move forward with I&D of the right hand with Dr Neville .
--- NOTE | 2021-03-30 09:15 | P.PNIM_ITS ---
Subjective Subjective Date of Service: 03/30/21 Interval History: minimal improvement Cardiovascular Cardiovascular: Reports no additional cardiovascular complaints Gastrointestinal Gastrointestinal: Reports no additional gastrointestinal complaints Physical Exam Vital Signs: Vital Signs: Last Vital Signs Temp 97.6 F 03/30/21 07:21 Pulse 64 03/30/21 07:21 Resp 18 03/30/21 07:21 BP 122/75 03/30/21 07:21 Pulse Ox 100 03/30/21 07:21 Body Mass Index 29.2 General: AO X 3, no acute distress Resp: CTA bilateral CVS: S1,S2,RRR GI: soft, non tender, non distended Neuro: motor grossly intact Psych: appropriate affect ext: right hand swelling - see pictures from previous note Objective Data Current Medications Generic Name Dose Route Start Last Admin Trade Name Guiq PRN Reason Stop Dose Admin Amlodipine Besylate 5 mg 03/29/21 09:00 03/30/21 08:04 Amlodipine Besylate 5 Mg Tablet PO 5 mg DAILY CELSO Administration Protocol Aspirin 81 mg 03/28/21 21:00 03/29/21 20:22 Aspirin Enteric Coated 81 Mg Tablet.Dr PO 81 mg BEDTIME CELSO Administration Atorvastatin Calcium 80 mg 03/29/21 09:00 03/30/21 08:05 Atorvastatin Calcium 80 Mg Tablet PO 80 mg DAILY CELSO Administration Enoxaparin Sodium 40 mg 03/28/21 18:00 03/29/21 17:10 Enoxaparin Sodium 40 Mg/0.4 Ml Syringe SUBCUT 40 mg Q24H CELSO Administration Clindamycin Phosphate 600 mg in 50 mls @ 100 mls/hr 03/29/21 12:00 03/30/21 05:39 Cleocin IV Infused Q8H C[facility] Infusion Levofloxacin 500 mg in 100 mls @ 100 mls/hr 03/29/21 12:00 03/29/21 13:59 Levaquin IV Infused Q24H [facility] Infusion Insulin Glargine 42 unit 03/28/21 21:00 03/29/21 21:20 Insulin Glargine,Hum.Rec.Anlog 100 Unit/Ml 10 Ml Vial SUBCUT Not Given BEDTIME [facility] Insulin Human Lispro 0 unit 03/28/21 21:00 03/30/21 07:59 Insulin Lispro 100 Unit/Ml 3 Ml Vial SUBCUT Not Given QIDACHS [facility] Protocol Lisinopril 40 mg 03/29/21 09:00 03/30/21 08:05 Lisinopril 40 Mg Tablet PO 40 mg DAILY CELSO Administration Protocol Metoprolol Succinate 50 mg 03/29/21 09:00 03/30/21 08:05 Metoprolol Succinate Er 50 Mg Tab.Er.24h PO 50 mg DAILY CELSO Administration Protocol Morphine Sulfate 30 mg 03/28/21 20:00 03/30/21 08:05 Morphine Sulfate Er 30 Mg Tablet.Er PO 30 mg Q12H [facility]ELSO Administration Omeprazole 20 mg 03/29/21 06:30 03/30/21 05:04 Omeprazole 20 Mg Capsule.Dr PO 20 mg DAILY@0630 [facility] Administration Oxycodone HCl 5 mg 03/28/21 17:29 03/30/21 08:05 Oxycodone Hcl Immed Release 5 Mg Tablet PO 5 mg Q8H PRN Administration Pain, Severe (Pain Scale 7-10) Pharmacy Consult 1 each 03/28/21 16:25 Consult Rx Perform Med Rec MISCELLANE ONCE PRN Consult order Sodium Chloride 3 ml 03/29/21 00:00 03/30/21 08:04 0.9 % Sodium Chloride Flush 3 Ml Syringe IVFLUSH 3 ml QSHIFT [facility] Administration Ticagrelor 90 mg 03/28/21 21:00 03/30/21 08:07 Ticagrelor 90 Mg Tablet PO Not Given BID [facility] Labs CBC & Chem 7: 03/29/21 05:39 03/29/21 05:39 Microbiology Microbiology Results: Microbiology 03/28/21 11:59 Blood - Venous Blood Culture - Preliminary No growth after 24 hours. 03/28/21 11:58 Blood - Venous Blood Culture - Preliminary No growth after 24 hours. Assessment and Plan (1) Cellulitis: Status: Acute Assessment and Plan: 61-year-old male presented with right upper extremity pain and swelling after dog bite Dog bite associated cellulitis minimal improvement so far clinda and levaquin plan for I and D with ortho CAD Recent stent Aspirin, Brilinta, statin Diabetes Hold metformin Basal bolus insulin Hypertension Amlodipine, Toprol, lisinopril
--- NOTE | 2021-03-30 09:38 | MHC.SHP ---
Pre-Procedural Eval Section B Chief Complaint: Dog bite cellulitis Allergies: Allergies Allergy/AdvReac Type Severity Reaction Status Date / Time No Known Allergies Allergy Verified 03/27/21 00:22 [No Known Allergies*] Plan I have reviewed the history and physical and performed a pertinent physical examination on my patient. No changes have occurred unless specified.
--- NOTE | 2021-03-30 09:38 | W.PM.OPN ---
Operative Note Operative Note Date of Service: 03/30/21 Narrative: Operative Note Narrative: Preop diagnosis: 1. Right hand thenar space abscess 2. Right dorsal wrist abscess Postop diagnosis: 1. Right thenar hematoma 2. Right dorsal wrist abscess about extensor tendons Procedure: Right hand and wrist I and D Surgeon: Barb Neville MD Anesthesia: Mac plus regional block Findings: Hematoma found within thenar muscle mass. Exploration of thenar space with no findings of gross purulence. Small, 1 cm wound over volar ulnar aspect of right wrist no gross purulence Exploration of 2 cm transverse laceration over dorsum of right wrist revealed cloudy fluid about the extensor tendons. Exploration of dorsal wrist joint capsule with no evidence of penetration into the wrist joint proper. Extensor tendon some cells appear to be in good condition. Implants: None Tourniquet time: 32 minutes EBL: 5.0 ml Specimen: Cultures sent from thenar space, and also from dorsal wrist wound. Drains: Iodoform drain in dorsal wrist wound I extended Complications: None Disposition: Brought to the recovery room in stable condition Plan: Readmit back to floor for IV antibiotics and diabetes management Continue antibiotics Wound check tomorrow with removal of iodoform drain. Indications: The patient is a 61 year old man with evidence of a a right hand thenar space infection, and possible infection of the wound over the dorsal aspect of the right wrist following a dog bite approximately 5 days ago. He has diabetes, and is also on a blood thinner, being 3 months status post cardiac stenting. . The risks and benefits of operative treatment, including but not limited to risk of damage to blood vessels, nerves, tendons, infection, recurrence, persistent pain or numbness, incomplete resolution of preoperative symptoms, need for further surgery and risks associated with anesthesia were discussed with the patient and they wished to proceed with surgery. Procedure: Once consent was obtained patient was brought back to the operating suite and placed in the operating table in a supine position. A regional block was performed by the anesthesia team. Anesthesia was administered by the anesthesia team. A tourniquet was applied to the proximal aspect of the right upper extremity and the limb was prepped and draped in a standard surgical fashion. The limb was elevated and the tourniquet inflated to 250 mm of mercury for a total tourniquet time of 32 minutes. A 3 cm long gently curved incision was made over the thenar mass of the right hand over the area of maximal firmness and tenderness.. He incision was made through the skin to the subcutaneous tissues using a 15. Blade. I carefully dissected through the subcutaneous tissue to the fascia over the thenar muscle mass using tenotomy scissors. No purulence was seen at this point. I then penetrated through the thenar mass using 1st tenotomy scissors and then and hemostat into the area of firmness. Rather than purulence what we found was evidence of a hematoma. A culture was taken. The hematoma was evacuated. The hemostat was passed into the thenar space. There was no evidence of purulence from this area. At this point the wound down to the thenar space was copiously irrigated with normal saline. The skin edges were loosely reapproximated to allow for drainage using some 4-0 nylon suture material. Attention was then turned to a 1 cm transverse laceration over the volar ulnar aspect of the right wrist. This was another area of tenderness and was carefully opened using tenotomy scissors. No gross purulence was found. The wound was copiously irrigated with normal saline. My attention was then turned to the 2 cm transverse laceration over the dorsal aspect of the right wrist. He had significant tenderness extending proximal and distal to this area. I explored this wound with a hemostat, and the laceration extended down to the extensor tendons of the 4th dorsal compartment. There was some cloudy fluid in this area that was then cultured. I extended the laceration radially and ulnarly each by about 7 mm using a 15. Blade. I then dissected down to the extensor tendon sheath using tenotomy scissors. The tendon sheath was copiously irrigated using normal saline. The extensor tendon some cells appear to be in good condition. The extensor tendons were then retracted to explore the tendon bed and the dorsal wrist capsule. I did not see any violation of the dorsal wrist capsule. Again he had not had pain with axial loading. This point the dorsal wrist wound was loosely closed with some 4-0 nylon suture material. IP placed a piece of iodoform gauze into the extensor tendon sheath to facilitate drainage. At this point the tourniquet was deflated and hemostasis obtained with a brief period of local pressure . Bleeding from these wounds was minimal. I injected just proximal to the dorsal wrist wound with some 0.25% plain Marcaine for postop pain control and a sterile dressing was applied. The patient appears to have tolerated the procedure well and with no complications. All digits were well vascularized conclusion of the case.
--- NOTE | 2021-03-30 09:40 | P.CONAN_ITS ---
FORMERLY [facility] Active Problems Active Problems: All Active Problems (Updated 03/30/21 @ 09:03 by Miladis Soria PA-C) Abscess of hand, right (Acute) Cellulitis (Acute) Dog bite of extremity (Acute) Smoking (Acute) Atherosclerotic cardiovascular disease (Acute) HTN (hypertension) (Acute) Diabetes (Acute) Past Medical History Medical History Acute coronary syndrome Atherosclerotic cardiovascular disease Diabetes Essential hypertension HTN (hypertension) NSTEMI (non-ST elevated myocardial infarction) Smoking Type 2 diabetes mellitus with unspecified complications Family History Family History Father No problems noted. Mother Leukemia HTN (hypertension) Surgical History Surgical History History of cardiac cath (~03/2019) S/P cardiac cath Social History Social History Household Members: None Housing: Apartment Do you presently have visiting nurse or other home services: No Alcohol intake: never Smoking Status: Current every day smoker Tobacco Type: Cigarette Packs Per Day: 0.25 Cigarettes Per Day: 4 Smoked in Last 30 Days: Yes Second Hand Smoke Exposure: No Use of substances other than those prescribed or required for medical reasons: No Substance Use Type: Marijuana Currently Displaying Signs/Symptoms of Drug Intoxication Withdrawal: No Have you been hit, kicked, punched, or otherwise hurt by someone within the past year? If so, by whom?: No Do you feel safe in your current relationship?: No Is there a partner from a previous relationship who is making you feel unsafe now?: No Are you made to feel afraid or neglected: No Spiritual Healthcare Practices: n/a Yazidism Healthcare Practices: n/a Cultural Healthcare Practices: n/a Advance Directives: Yes Advance Directives on File: Yes Advance Directives Date on File: 02/04/21 Do you have thoughts of harming others: None Do you have a plan to hurt others: No Plan Recently lost weight without trying: No Eating poorly because of decreased appetite: No Poor oral hygiene: No service: No Current occupational status: unemployed Meds Allergies Allergy/AdvReac Type Severity Reaction Status Date / Time No Known Allergies Allergy Verified 03/27/21 00:22 [No Known Allergies*] Active Medications: Current Medications Generic Name Dose Route Start Last Admin Trade Name Angela PRN Reason Stop Dose Admin Amlodipine Besylate 5 mg 03/29/21 09:00 03/30/21 08:04 Amlodipine Besylate 5 Mg Tablet PO 5 mg DAILY [facility] Administration Protocol Aspirin 81 mg 03/28/21 21:00 03/29/21 20:22 Aspirin Enteric Coated 81 Mg Tablet. PO 81 mg BEDTIME [facility] Administration Atorvastatin Calcium 80 mg 03/29/21 09:00 03/30/21 08:05 Atorvastatin Calcium 80 Mg Tablet PO 80 mg DAILY [facility] Administration Enoxaparin Sodium 40 mg 03/28/21 18:00 03/29/21 17:10 Enoxaparin Sodium 40 Mg/0.4 Ml Syringe SUBCUT 40 mg Q24H [facility] Administration Clindamycin Phosphate 600 mg in 50 mls @ 100 mls/hr 03/29/21 12:00 03/30/21 05:39 Cleocin IV Infused Q8H [facility] Infusion Levofloxacin 500 mg in 100 mls @ 100 mls/hr 03/29/21 12:00 03/29/21 13:59 Levaquin IV Infused Q24H [facility] Infusion Insulin Glargine 42 unit 03/28/21 21:00 03/29/21 21:20 Insulin Glargine,Hum.Rec.Anlog 100 Unit/Ml 10 Ml Vial SUBCUT Not Given BEDTIME [facility] Insulin Human Lispro 0 unit 03/28/21 21:00 03/30/21 07:59 Insulin Lispro 100 Unit/Ml 3 Ml Vial SUBCUT Not Given QIDACHS [facility] Protocol Lisinopril 40 mg 03/29/21 09:00 03/30/21 08:05 Lisinopril 40 Mg Tablet PO 40 mg DAILY [facility] Administration Protocol Metoprolol Succinate 50 mg 03/29/21 09:00 03/30/21 08:05 Metoprolol Succinate Er 50 Mg Tab.Er.24h PO 50 mg DAILY [facility] Administration Protocol Morphine Sulfate 30 mg 03/28/21 20:00 03/30/21 08:05 Morphine Sulfate Er 30 Mg Tablet.Er PO 30 mg Q12H [facility] Administration Omeprazole 20 mg 03/29/21 06:30 03/30/21 05:04 Omeprazole 20 Mg Capsule.Dr PO 20 mg DAILY@0630 [facility] Administration Oxycodone HCl 5 mg 03/28/21 17:29 03/30/21 08:05 Oxycodone Hcl Immed Release 5 Mg Tablet PO 5 mg Q8H PRN Administration Pain, Severe (Pain Scale 7-10) Pharmacy Consult 1 each 03/28/21 16:25 Consult Rx Perform Med Rec MISCELLANE ONCE PRN Consult order Sodium Chloride 3 ml 03/29/21 00:00 03/30/21 08:04 0.9 % Sodium Chloride Flush 3 Ml Syringe IVFLUSH 3 ml QSHIFT [facility] Administration Ticagrelor 90 mg 03/28/21 21:00 03/30/21 08:07 Ticagrelor 90 Mg Tablet PO Not Given BID [facility] Home Medications Medication Instructions Recorded Confirmed Last Taken Type Lantus Solostar U-100 Insulin 42 unit SUBCUT BEDTIME 10/03/20 03/28/21 10/02/20 History metformin 1,000 mg BID 10/03/20 03/28/21 10/02/20 History omeprazole 20 mg DAILY 10/03/20 03/28/21 10/02/20 History amlodipine 1 tab PO QAM 02/01/21 03/28/21 Unknown History lisinopril 40 mg PO DAILY 02/01/21 03/28/21 Unknown History morphine 1 tab PO Q12H 02/01/21 03/28/21 Unknown History oxycodone-acetaminophen 1 tab PO Q8H PRN 02/01/21 03/28/21 Unknown History atorvastatin 80 mg tablet 80 mg PO BEDTIME 02/18/21 03/28/21 Unknown History ticagrelor 90 mg tablet 90 mg PO BID 02/18/21 03/28/21 Unknown History omega-3 fatty acids-fish oil [Fish 1 cap PO TID 03/28/21 03/28/21 Unknown History Oil] Exam Exam Date and Time: March 30, 2021 0940 Height,Weight and Vital Signs: Height 5 ft 11 in Weight 95.254 kg Last Vital Signs Temp 97.6 F 03/30/21 07:21 Pulse 64 03/30/21 07:21 Resp 18 03/30/21 07:21 BP 122/75 03/30/21 07:21 Pulse Ox 100 03/30/21 07:21 Pertinent Lab Results Pertinent Lab Results: Laboratory Tests 03/28/21 03/28/21 03/28/21 11:58 11:58 11:58 WBC 9.8 RBC 4.32 L Hgb 12.0 L Hct 36.6 L MCV 84.7 MCH 27.8 MCHC 32.8 RDW 14.6 Plt Count 310 MPV 8.7 L Immature Gran % (Auto) 0.7 H Neut % (Auto) 64.8 Lymph % (Auto) 24.7 Ellis % (Auto) 7.3 Eos % (Auto) 2.1 Baso % (Auto) 0.4 Lymph # (Auto) 2.4 Ellis # (Auto) 0.7 Eos # (Auto) 0.2 Baso # (Auto) 0.0 Abs Immat Gran (auto) 0.07 H Absolute Neuts (auto) 6.4 Absolute Nucleated RBC 0.000 Nucleated RBC % (auto) 0.0 ESR PT INR APTT Sodium 140 Potassium 3.7 Chloride 103 Carbon Dioxide 26 Anion Gap 15 BUN 10 Creatinine 0.80 Estim Creat Clear Calc 114.2 Estimated GFR > 60 POC Glucose Random Glucose 165 H D Lactic Acid 2.7 H* Lactic Acid Fup @ 2Hr Lactic Acid Fup @ 4Hr Calcium 9.2 Total Bilirubin 1.6 H AST 17 ALT 25 Alkaline Phosphatase 67 C-Reactive Protein 5.72 H Total Protein 6.9 Albumin 4.0 COVID-19 (MJ) COVIDTHE NOCKLIST 03/28/21 03/28/21 03/28/21 11:58 11:58 14:07 WBC RBC Hgb Hct MCV MCH MCHC RDW Plt Count MPV Immature Gran % (Auto) Neut % (Auto) Lymph % (Auto) Ellis % (Auto) Eos % (Auto) Baso % (Auto) Lymph # (Auto) Ellis # (Auto) Eos # (Auto) Baso # (Auto) Abs Immat Gran (auto) Absolute Neuts (auto) Absolute Nucleated RBC Nucleated RBC % (auto) ESR 48 H PT 12.1 INR 1.0 APTT 36.3 Sodium Potassium Chloride Carbon Dioxide Anion Gap BUN Creatinine Estim Creat Clear Calc Estimated GFR POC Glucose Random Glucose Lactic Acid Lactic Acid Fup @ 2Hr 3.2 H* Lactic Acid Fup @ 4Hr Calcium Total Bilirubin AST ALT Alkaline Phosphatase C-Reactive Protein Total Protein Albumin COVID-19 (MJ) COVIDTHE NOCKLIST 03/28/21 03/28/21 03/28/21 17:00 17:00 21:15 WBC RBC Hgb Hct MCV MCH MCHC RDW Plt Count MPV Immature Gran % (Auto) Neut % (Auto) Lymph % (Auto) Ellis % (Auto) Eos % (Auto) Baso % (Auto) Lymph # (Auto) Ellis # (Auto) Eos # (Auto) Baso # (Auto) Abs Immat Gran (auto) Absolute Neuts (auto) Absolute Nucleated RBC Nucleated RBC % (auto) ESR PT INR APTT Sodium Potassium Chloride Carbon Dioxide Anion Gap BUN Creatinine Estim Creat Clear Calc Estimated GFR POC Glucose 156 H Random Glucose Lactic Acid Lactic Acid Fup @ 2Hr Lactic Acid Fup @ 4Hr 2.0 Calcium Total Bilirubin AST ALT Alkaline Phosphatase C-Reactive Protein Total Protein Albumin COVID-19 (MJ) Negative COVID-19 [place] See Note 03/29/21 03/29/21 03/29/21 05:39 05:39 07:33 WBC 8.0 RBC 3.98 L Hgb 11.0 L Hct 33.7 L MCV 84.7 MCH 27.6 MCHC 32.6 RDW 14.5 Plt Count 300 MPV 8.9 L Immature Gran % (Auto) 0.5 H Neut % (Auto) 54.7 Lymph % (Auto) 33.2 Ellis % (Auto) 7.8 Eos % (Auto) 3.3 Baso % (Auto) 0.5 Lymph # (Auto) 2.7 Ellis # (Auto) 0.6 Eos # (Auto) 0.3 Baso # (Auto) 0.0 Abs Immat Gran (auto) 0.04 H Absolute Neuts (auto) 4.4 Absolute Nucleated RBC 0.000 Nucleated RBC % (auto) 0.0 ESR PT INR APTT Sodium 141 Potassium 3.8 Chloride 107 Carbon Dioxide 27 Anion Gap 11 L BUN 10 Creatinine 0.82 Estim Creat Clear Calc 111.4 Estimated GFR > 60 POC Glucose 148 H Random Glucose 166 H Lactic Acid Lactic Acid Fup @ 2Hr Lactic Acid Fup @ 4Hr Calcium 8.5 D Total Bilirubin AST ALT Alkaline Phosphatase C-Reactive Protein Total Protein Albumin COVID-19 (MJ) COVID-19 [place] 03/29/21 03/29/21 03/29/21 11:16 16:09 20:52 WBC RBC Hgb Hct MCV MCH MCHC RDW Plt Count MPV Immature Gran % (Auto) Neut % (Auto) Lymph % (Auto) Ellis % (Auto) Eos % (Auto) Baso % (Auto) Lymph # (Auto) Ellis # (Auto) Eos # (Auto) Baso # (Auto) Abs Immat Gran (auto) Absolute Neuts (auto) Absolute Nucleated RBC Nucleated RBC % (auto) ESR PT INR APTT Sodium Potassium Chloride Carbon Dioxide Anion Gap BUN Creatinine Estim Creat Clear Calc Estimated GFR POC Glucose 165 H 143 H 156 H Random Glucose Lactic Acid Lactic Acid Fup @ 2Hr Lactic Acid Fup @ 4Hr Calcium Total Bilirubin AST ALT Alkaline Phosphatase C-Reactive Protein Total Protein Albumin COVID-19 (MJ) COVID-[employer] 03/30/21 07:20 WBC RBC Hgb Hct MCV MCH MCHC RDW Plt Count MPV Immature Gran % (Auto) Neut % (Auto) Lymph % (Auto) Ellis % (Auto) Eos % (Auto) Baso % (Auto) Lymph # (Auto) Ellis # (Auto) Eos # (Auto) Baso # (Auto) Abs Immat Gran (auto) Absolute Neuts (auto) Absolute Nucleated RBC Nucleated RBC % (auto) ESR PT INR APTT Sodium Potassium Chloride Carbon Dioxide Anion Gap BUN Creatinine Estim Creat Clear Calc Estimated GFR POC Glucose 155 H Random Glucose Lactic Acid Lactic Acid Fup @ 2Hr Lactic Acid Fup @ 4Hr Calcium Total Bilirubin AST ALT Alkaline Phosphatase C-Reactive Protein Total Protein Albumin COVID-19 (MJ) COVID-19 [place] [employer] Airway Mallampati Class: II TM Dist: >3cm Loose/Missing/Broken Teeth: No Heart: RRR Lungs: CTA Assessment and Plan Assessment Anesthesia Assessment: Anesthesia Plan Discussed Final Anesthetic Review NPO: Yes ASA Class: III and Emergency Final Preanesthetic Review: No Changes in Pt Med Stat, Meds/Allgs Chart Reviewed, Consent Obtained/Reviewed and Anes Risks/Benef Reviewed Patient Risk: High Procedure Risk: Low Anesthetic Plan Anesthetic Plan: Regional Block Disposition: Standard PACU
[2021-03-30 12:52] LABS: Glucose, Whole Blood 152 mg/dL (60-115)
[2021-03-30] MEDS: levoFLOXacin/D5W 500 MG/100 ML PIGGYBACK 100 MG IV (12:56)
[2021-03-30] MEDS: oxyCODONE HCl Immed Release 5 MG TABLET 10 MG PO (14:13)
--- NOTE | 2021-03-30 14:22 | PC.NURSE ---
1245 Returned from PACU. chiara wrap on right hand. Elevated on pillow. Fingers edematous. able to move them slightly.
[2021-03-30 16:20] LABS: Vancomycin Trough < 3.0 mcg/mL (10.0-20.0)
[2021-03-30] MEDS: HYDROmorphone HCl 0.5 MG/0.5 ML SYRINGE 0.25 MG IVPUSH (16:24)
[2021-03-30] MEDS: Insulin Lispro 100 UNIT/ML 3 ML VIAL SUBCUT ×2 (16:32→21:05)
[2021-03-30 16:37] LABS: Glucose, Whole Blood 183 mg/dL (60-115)
[2021-03-30] MEDS: Enoxaparin Sodium 40 MG/0.4 ML SYRINGE SUBCUT (18:08)
[2021-03-30 20:25] LABS: Glucose, Whole Blood 213 mg/dL (60-115)
[2021-03-30] MEDS: Aspirin Enteric Coated 81 MG TABLET.DR PO (21:06)
[2021-03-30] MEDS: Ticagrelor 90 MG TABLET PO (21:07)
[2021-03-31] VITALS: BP 119/88; PULSE 100; RESP 16; TEMP 36.4; O2SAT 98
[2021-03-31] MEDS: HYDROmorphone HCl 0.5 MG/0.5 ML SYRINGE 0.25 MG IVPUSH (00:51)
[2021-03-31] MEDS: Clindamycin Phosphate/D5W 600 MG/50 ML PIGGYBACK 100 MG IV ×3 (04:57→21:42)
[2021-03-31 04:58] LABS: Hematocrit 36.3 % (42-52); Mean Corpuscular HGB Conc 33.1 g/dl (31.0-36.0); Mean Corpuscular Volume 84.6 fL (80-98); Mean Platelet Volume 8.8 fL (9.4-12.4); Platelet Count 335 X10*3/uL (160-400); Red Blood Count 4.29 X10*6/uL (4.60-5.80); Red Cell Distribution Width 14.4 % (11.0-16.0); White Blood Count 10.9 X10*3/uL (4.8-10.8)
[2021-03-31] MEDS: Acetaminophen 325 MG TABLET 650 MG PO (04:58)
[2021-03-31 05:27] LABS: Anion Gap 12 (12-20); Blood Urea Nitrogen 12 mg/dL (9-16); Calcium 9.2 mg/dL (8.4-10.2); Carbon Dioxide 27 mmol/L (22-29); Chloride 103 mmol/L (96-108); Creatinine Clr Calc Pharmacy 103.8; Estimated Glomerular Filt Rate > 60; Glucose Fasting 194 mg/dL (60-99); Potassium 4.1 mmol/L (3.3-5.1); Sodium 138 mmol/L (135-145)
[2021-03-31] MEDS: Omeprazole 20 MG CAPSULE.DR PO (05:28)
[2021-03-31 07:25] VITALS: BP 120/59; PULSE 85; RESP 18; TEMP 36.5; O2SAT 99
[2021-03-31 07:30] LABS: Glucose, Whole Blood 186 mg/dL (60-115)
[2021-03-31] MEDS: Insulin Lispro 100 UNIT/ML 3 ML VIAL SUBCUT ×4 (07:53→21:43)
[2021-03-31] MEDS: 0.9 % Sodium Chloride Flush 3 ML SYRINGE IVFLUSH ×2 (07:54→15:13)
[2021-03-31] MEDS: Ticagrelor 90 MG TABLET PO ×2 (07:54→21:44)
[2021-03-31] MEDS: amLODIPine Besylate 5 MG TABLET PO (07:54)
[2021-03-31] MEDS: Morphine Sulfate ER 30 MG TABLET.ER PO ×2 (07:54→21:43)
[2021-03-31] MEDS: Metoprolol Succinate ER 50 MG TAB.ER.24H PO (07:55)
[2021-03-31] MEDS: lisinopriL 40 MG TABLET PO (07:55)
[2021-03-31] MEDS: Atorvastatin Calcium 80 MG TABLET PO (07:56)
[2021-03-31 08:18] LABS: C Reactive Protein 3.28 mg/dL (< or = 0.50)
--- NOTE | 2021-03-31 10:47 | P.PNOP_ITS ---
Subjective Subjective Date of Service: 03/31/21 Interval history: Postop day 1 status post right hand I and D. No overnight events. Patient dressing in bed. He has some discomfort over the dorsum of the hand. Physical Exam Vital Signs: Vital Signs: Last Vital Signs Temp 97.7 F 03/31/21 07:25 Pulse 85 03/31/21 07:25 Resp 18 03/31/21 07:25 BP 120/59 L 03/31/21 07:25 Pulse Ox 99 03/31/21 07:25 Body Mass Index 29.2 Extrem: Other: Right hand incision clean dry and intact I would for packing removed. There is some bloody drainage. No significant redness. Minimal swelling. No. Purulence Progress Note: A&P Assessment and plan (1) Abscess of hand, right: Status: Acute Assessment and Plan: Continue antibiotics Continue with dressing changes Range of motion of the digits We will continue to follow Fall Risk Details Current Medications: Current Medications Generic Name Dose Route Start Last Admin Trade Name Freq PRN Reason Stop Dose Admin Amlodipine Besylate 5 mg 03/29/21 09:00 03/31/21 07:54 Amlodipine Besylate 5 Mg Tablet PO 5 mg DAILY [facility] Administration Protocol Aspirin 81 mg 03/28/21 21:00 03/30/21 21:06 Aspirin Enteric Coated 81 Mg Tablet. PO 81 mg BEDTIME [facility] Administration Atorvastatin Calcium 80 mg 03/29/21 09:00 03/31/21 07:56 Atorvastatin Calcium 80 Mg Tablet PO 80 mg DAILY [facility] Administration Enoxaparin Sodium 40 mg 03/28/21 18:00 03/30/21 18:08 Enoxaparin Sodium 40 Mg/0.4 Ml Syringe SUBCUT 40 mg Q24H [facility] Administration Fentanyl 25 mcg 03/30/21 11:09 Fentanyl Citrate/Pf 100 Mcg/2 Ml Vial IVPUSH Q5M PRN Pain, Moderate (Pain Scale 4-6 Hydromorphone HCl 0.25 mg 03/30/21 11:09 03/31/21 00:51 Hydromorphone Hcl 0.5 Mg/0.5 Ml Syringe IVPUSH 0.25 mg Q5M PRN Administration Pain, Severe (Pain Scale 7-10) Clindamycin Phosphate 600 mg in 50 mls @ 100 mls/hr 03/29/21 12:00 03/31/21 05:31 Cleocin IV Infused Q8H [facility] Infusion Levofloxacin 500 mg in 100 mls @ 100 mls/hr 03/29/21 12:00 03/30/21 14:10 Levaquin IV Infused Q24H [facility] Infusion Insulin Glargine 42 unit 03/28/21 21:00 03/30/21 21:26 Insulin Glargine,Hum.Rec.Anlog 100 Unit/Ml 10 Ml Vial SUBCUT Not Given BEDTIME [facility] Insulin Human Lispro 0 unit 03/28/21 21:00 03/31/21 07:53 Insulin Lispro 100 Unit/Ml 3 Ml Vial SUBCUT 2 unit QIDACHS [facility] Administration Protocol Lisinopril 40 mg 03/29/21 09:00 03/31/21 07:55 Lisinopril 40 Mg Tablet PO 40 mg DAILY [facility] Administration Protocol Metoprolol Succinate 50 mg 03/29/21 09:00 03/31/21 07:55 Metoprolol Succinate Er 50 Mg Tab.Er.24h PO 50 mg DAILY [facility] Administration Protocol Morphine Sulfate 30 mg 03/28/21 20:00 03/31/21 07:54 Morphine Sulfate Er 30 Mg Tablet.Er PO 30 mg Q12H [facility] Administration Omeprazole 20 mg 03/29/21 06:30 03/31/21 05:28 Omeprazole 20 Mg Capsule.Dr PO 20 mg DAILY@0630 [facility] Administration Ondansetron HCl 4 mg 03/30/21 11:09 Ondansetron Hcl 4 Mg/2 Ml Vial IVPUSH ONCE PRN Nausea and Vomiting Oxycodone HCl 5 mg 03/28/21 17:29 03/30/21 22:51 Oxycodone Hcl Immed Release 5 Mg Tablet PO 5 mg Q8H PRN Administration Pain, Severe (Pain Scale 7-10) Pharmacy Consult 1 each 03/28/21 16:25 Consult Rx Perform Med Rec MISCELLANE ONCE PRN Consult order Sodium Chloride 3 ml 03/29/21 00:00 03/31/21 07:54 0.9 % Sodium Chloride Flush 3 Ml Syringe IVFLUSH 3 ml QSHIFT [facility] Administration Ticagrelor 90 mg 03/28/21 21:00 03/31/21 07:54 Ticagrelor 90 Mg Tablet PO 90 mg BID [facility] Administration Time Spent With Patient Time: Total time spent is greater than 50% in coordination of care (as documented) at patient's floor/unit and/or counseling patient: Time with patient: less than 15 minutes Procedures Date of Service Date of Service: 03/31/21
[2021-03-31 11:37] LABS: Glucose, Whole Blood 219 mg/dL (60-115)
--- NOTE | 2021-03-31 13:00 | P.PNIM_ITS ---
Subjective Subjective Date of Service: 03/31/21 Interval History: packing removed by Ortho; bloody drainage soaking through dressing c/o R hand pain no fever Physical Exam Vital Signs: Vital Signs: Last Vital Signs Temp 97.7 F 03/31/21 07:25 Pulse 85 03/31/21 07:25 Resp 18 03/31/21 07:25 BP 120/59 L 03/31/21 07:25 Pulse Ox 99 03/31/21 07:25 Body Mass Index 29.2 Gen: in no acute distress HEENT: sclera anicteric, moist mucus membranes Neck: supple Lungs: clear to auscultation bilaterally Heart: regular rate and rhythm, no murmurs Abd: soft, non-tender, non-distended Ext: R hand swollen and in surgical dressing soaked with serosangiunous liquid Skin: warm/well-perfused Neuro: alert and oriented x3, no focal findings Psych: appropriate affect Objective Data Current Medications Generic Name Dose Route Start Last Admin Trade Name Freq PRN Reason Stop Dose Admin Amlodipine Besylate 5 mg 03/29/21 09:00 03/31/21 07:54 Amlodipine Besylate 5 Mg Tablet PO 5 mg DAILY [facility] Administration Protocol Aspirin 81 mg 03/28/21 21:00 03/30/21 21:06 Aspirin Enteric Coated 81 Mg Tablet. PO 81 mg BEDTIME [facility] Administration Atorvastatin Calcium 80 mg 03/29/21 09:00 03/31/21 07:56 Atorvastatin Calcium 80 Mg Tablet PO 80 mg DAILY [facility] Administration Fentanyl 25 mcg 03/30/21 11:09 Fentanyl Citrate/Pf 100 Mcg/2 Ml Vial IVPUSH Q5M PRN Pain, Moderate (Pain Scale 4-6 Hydromorphone HCl 0.25 mg 03/30/21 11:09 03/31/21 00:51 Hydromorphone Hcl 0.5 Mg/0.5 Ml Syringe IVPUSH 0.25 mg Q5M PRN Administration Pain, Severe (Pain Scale 7-10) Clindamycin Phosphate 600 mg in 50 mls @ 100 mls/hr 03/29/21 12:00 03/31/21 05:31 Cleocin IV Infused Q8H [facility] Infusion Levofloxacin 500 mg in 100 mls @ 100 mls/hr 03/29/21 12:00 03/30/21 14:10 Levaquin IV Infused Q24H [facility] Infusion Insulin Glargine 42 unit 03/28/21 21:00 03/30/21 21:26 Insulin Glargine,Hum.Rec.Anlog 100 Unit/Ml 10 Ml Vial SUBCUT Not Given BEDTIME [facility] Insulin Human Lispro 0 unit 03/28/21 21:00 03/31/21 11:31 Insulin Lispro 100 Unit/Ml 3 Ml Vial SUBCUT 4 unit QIDACHS [facility] Administration Protocol Lisinopril 40 mg 03/29/21 09:00 03/31/21 07:55 Lisinopril 40 Mg Tablet PO 40 mg DAILY [facility] Administration Protocol Metoprolol Succinate 50 mg 03/29/21 09:00 03/31/21 07:55 Metoprolol Succinate Er 50 Mg Tab.Er.24h PO 50 mg DAILY [facility] Administration Protocol Morphine Sulfate 30 mg 03/28/21 20:00 03/31/21 07:54 Morphine Sulfate Er 30 Mg Tablet.Er PO 30 mg Q12H [facility] Administration Omeprazole 20 mg 03/29/21 06:30 03/31/21 05:28 Omeprazole 20 Mg Capsule.Dr PO 20 mg DAILY@0630 [facility] Administration Ondansetron HCl 4 mg 03/30/21 11:09 Ondansetron Hcl 4 Mg/2 Ml Vial IVPUSH ONCE PRN Nausea and Vomiting Oxycodone HCl 5 mg 03/28/21 17:29 03/30/21 22:51 Oxycodone Hcl Immed Release 5 Mg Tablet PO 5 mg Q8H PRN Administration Pain, Severe (Pain Scale 7-10) Pharmacy Consult 1 each 03/28/21 16:25 Consult Rx Perform Med Rec MISCELLANE ONCE PRN Consult order Sodium Chloride 3 ml 03/29/21 00:00 03/31/21 07:54 0.9 % Sodium Chloride Flush 3 Ml Syringe IVFLUSH 3 ml QSHIFT [facility] Administration Ticagrelor 90 mg 03/28/21 21:00 03/31/21 07:54 Ticagrelor 90 Mg Tablet PO 90 mg BID [facility] Administration Labs CBC & Chem 7: 03/31/21 04:43 03/31/21 04:43 Microbiology Microbiology Results: Microbiology 03/30/21 00:00 Wrist Right Gram Stain - Final 03/30/21 00:00 Wrist Right Routine Culture - Preliminary No growth to date. 03/30/21 00:00 Hand Right Gram Stain - Final 03/30/21 00:00 Hand Right Routine Culture - Preliminary No growth to date. 03/28/21 11:59 Blood - Venous Blood Culture - Preliminary No growth after 48 hours. 03/28/21 11:58 Blood - Venous Blood Culture - Preliminary No growth after 48 hours. Assessment and Plan (1) Cellulitis: Status: Acute Assessment and Plan: hospital d#4 61-year-old male presented with right upper extremity pain and swelling after dog bite # dog bite associated cellulitis with R thenar hematoma + R dorsal wrist abscess about extensor tendons - POD #1 I+D by orthopedics, following - clinda + levoflox d#3, ID following # CAD with recent PCI - continue DAPT, statin # HTN - continue amlodipine, metoprolol succinate, lisinopril # DM2 - hold MTF, continue basal/bolus insulin # VTE ppx - d/c LMWH due to bleeding from wound; place SCDs
[2021-03-31] MEDS: levoFLOXacin/D5W 500 MG/100 ML PIGGYBACK 100 MG IV (13:48)
--- NOTE | 2021-03-31 14:34 | MHC.CM.PN ---
PER PHYSICIAN ROUNDS, EXPECT 1-2 MORE DAYS OF IV ABX AND THEN DISCHARGE HOME. CASE MANAGEMENT AVAILABLE FOR DISCHARGE NEEDS.,
[2021-03-31] MEDS: oxyCODONE HCl Immed Release 5 MG TABLET PO (15:19)
[2021-03-31 15:37] VITALS: BP 120/82; PULSE 81; RESP 16; TEMP 36.8; O2SAT 99
--- NOTE | 2021-03-31 16:25 | W.PM.IDCN ---
History of Present Illness Data of Consult Service Date: 03/31/21 Requesting physician: Joe Lyons Primary Care Provider: Aj Alonso MD [facility] Reason for consult: hand swelling He presents with 6 days right hand swelling. He was bit by a dog three days ago after dog hit by car. He has MRI small abscess. Review of Systems Review of Systems: Yes all other systems are reviewed and are negative PMFSH Past Medical History Medical History Abscess of hand, right Acute coronary syndrome Atherosclerotic cardiovascular disease Cellulitis Diabetes Dog bite of extremity Epidermal cyst Essential hypertension HTN (hypertension) NSTEMI (non-ST elevated myocardial infarction) Smoking Type 2 diabetes mellitus with unspecified complications Family History Family History Father No problems noted. Mother Leukemia HTN (hypertension) Family history: reviewed and not pertinent Surgical History Surgical History History of cardiac cath (~03/2019) S/P cardiac cath Social History Social History Household Members: None Housing: Apartment Do you presently have visiting nurse or other home services: No Alcohol intake: never Cigarette Packs Per Day: 0.25 Cigarettes Per Day: 4 Second Hand Smoke Exposure: No Substance Use Type: Marijuana Advance Directives Date on File: 02/04/21 service: No Current occupational status: unemployed Meds Allergies Allergy/AdvReac Type Severity Reaction Status Date / Time No Known Allergies Allergy Verified 04/15/21 12:40 [No Known Allergies*] Active Medications: Current Medications Generic Name Dose Route Start Last Admin Trade Name Freq PRN Reason Stop Dose Admin Amlodipine Besylate 5 mg 03/29/21 09:00 03/31/21 07:54 Amlodipine Besylate 5 Mg Tablet PO 5 mg DAILY [facility] Administration Protocol Aspirin 81 mg 03/28/21 21:00 03/30/21 21:06 Aspirin Enteric Coated 81 Mg Tablet. PO 81 mg BEDTIME [facility] Administration Atorvastatin Calcium 80 mg 03/29/21 09:00 03/31/21 07:56 Atorvastatin Calcium 80 Mg Tablet PO 80 mg DAILY [facility] Administration Fentanyl 25 mcg 03/30/21 11:09 Fentanyl Citrate/Pf 100 Mcg/2 Ml Vial IVPUSH Q5M PRN Pain, Moderate (Pain Scale 4-6 Hydromorphone HCl 0.25 mg 03/30/21 11:09 03/31/21 00:51 Hydromorphone Hcl 0.5 Mg/0.5 Ml Syringe IVPUSH 0.25 mg Q5M PRN Administration Pain, Severe (Pain Scale 7-10) Clindamycin Phosphate 600 mg in 50 mls @ 100 mls/hr 03/29/21 12:00 03/31/21 13:49 Cleocin IV Infused Q8H [facility] Infusion Levofloxacin 500 mg in 100 mls @ 100 mls/hr 03/29/21 12:00 03/31/21 15:29 Levaquin IV Infused Q24H [facility] Infusion Insulin Glargine 42 unit 03/28/21 21:00 03/30/21 21:26 Insulin Glargine,Hum.Rec.Anlog 100 Unit/Ml 10 Ml Vial SUBCUT Not Given BEDTIME [facility] Insulin Human Lispro 0 unit 03/28/21 21:00 03/31/21 11:31 Insulin Lispro 100 Unit/Ml 3 Ml Vial SUBCUT 4 unit QIDACHS [facility] Administration Protocol Lisinopril 40 mg 03/29/21 09:00 03/31/21 07:55 Lisinopril 40 Mg Tablet PO 40 mg DAILY [facility] Administration Protocol Metoprolol Succinate 50 mg 03/29/21 09:00 03/31/21 07:55 Metoprolol Succinate Er 50 Mg Tab.Er.24h PO 50 mg DAILY [facility] Administration Protocol Morphine Sulfate 30 mg 03/28/21 20:00 03/31/21 07:54 Morphine Sulfate Er 30 Mg Tablet.Er PO 30 mg Q12H [facility] Administration Omeprazole 20 mg 03/29/21 06:30 03/31/21 05:28 Omeprazole 20 Mg Capsule.Dr PO 20 mg DAILY@0630 [facility] Administration Ondansetron HCl 4 mg 03/30/21 11:09 Ondansetron Hcl 4 Mg/2 Ml Vial IVPUSH ONCE PRN Nausea and Vomiting Oxycodone HCl 5 mg 03/28/21 17:29 03/31/21 15:19 Oxycodone Hcl Immed Release 5 Mg Tablet PO 5 mg Q8H PRN Administration Pain, Severe (Pain Scale 7-10) Pharmacy Consult 1 each 03/28/21 16:25 Consult Rx Perform Med Rec MISCELLANE ONCE PRN Consult order Sodium Chloride 3 ml 03/29/21 00:00 03/31/21 15:13 0.9 % Sodium Chloride Flush 3 Ml Syringe IVFLUSH 3 ml QSHIFT [facility] Administration Ticagrelor 90 mg 03/28/21 21:00 03/31/21 07:54 Ticagrelor 90 Mg Tablet PO 90 mg BID [facility] Administration Home Medications Medication Instructions Recorded Confirmed Last Taken Type Lantus Solostar U-100 Insulin 42 unit SUBCUT BEDTIME 10/03/20 03/28/21 10/02/20 History metformin 1,000 mg BID 10/03/20 03/28/21 10/02/20 History omeprazole 20 mg DAILY 10/03/20 03/28/21 10/02/20 History amlodipine 1 tab PO QAM 02/01/21 03/28/21 Unknown History lisinopril 40 mg PO DAILY 02/01/21 03/28/21 Unknown History morphine 1 tab PO Q12H 02/01/21 03/28/21 Unknown History oxycodone-acetaminophen 1 tab PO Q8H PRN 02/01/21 03/28/21 Unknown History atorvastatin 80 mg tablet 80 mg PO BEDTIME 02/18/21 03/28/21 Unknown History ticagrelor 90 mg tablet 90 mg PO BID 02/18/21 03/28/21 Unknown History Fish Oil 1 cap PO TID 03/28/21 03/28/21 Unknown History Physical Exam Vital Signs: Vital Signs: Last Vital Signs Temp 98.2 F 03/31/21 15:37 Pulse 81 03/31/21 15:37 Resp 16 03/31/21 15:37 BP 120/82 03/31/21 15:37 Pulse Ox 99 03/31/21 15:37 Body Mass Index 29.2 Const: General: cooperative HENMT: Head: Yes normal to inspection Mouth: Normal oral and palatal mucosa present Resp: Effort & Inspection: normal respiratory effort Cardio: Rate: regular rate Rhythm: regular rhythm GI: Palpation (GI): Soft to palpation and nontender Skin: General skin exam: no rashes or lesions noted Extrem: Other: hand cellulitis Results Labs CBC & Chem 7: 04/02/21 06:32 03/31/21 04:43 Labs: Short CBC 03/31/21 Range/Units 04:43 WBC 10.9 H (4.8-10.8) X10*3/uL Hgb 12.0 L (14.0-18.0) g/dl Hct 36.3 L (42-52) % Plt Count 335 (160-400) X10*3/uL BMP 03/31/21 04:43 Sodium 138 Potassium 4.1 Chloride 103 Carbon Dioxide 27 BUN 12 Creatinine 0.88 Calcium 9.2 D Microbiology Microbiology Results: Microbiology 03/30/21 00:00 Wrist Right Gram Stain - Final 03/30/21 00:00 Wrist Right Routine Culture - Preliminary No growth to date. 03/30/21 00:00 Hand Right Gram Stain - Final 03/30/21 00:00 Hand Right Routine Culture - Preliminary No growth to date. 03/28/21 11:59 Blood - Venous Blood Culture - Preliminary No growth after 48 hours. 03/28/21 11:58 Blood - Venous Blood Culture - Preliminary No growth after 48 hours. Assessment and Plan (1) Abscess of hand, right: Problem details: Mr. Hayden Graham is a 61 yo male who presents to the office today for follow-up s/p right hand dog bite with abscess. He underwent a ight hand I+D on 03/30/21 and then again on 04/03/[address] Neville who was also available to see the patient with me today. He will continue oral abx until followup in one week where we will also plan for suture removal. He will see me with Dr. Neville in the office in one week, sooner if needed. Clindamycin 900 mg IV every 8 hours as well as Levaquin 750 mg daily until better and then Clindamycin 300 mg tid and Levaquin 750 mg po daily for 14 day total. (2) Cellulitis:
[2021-03-31 16:30] LABS: Glucose, Whole Blood 233 mg/dL (60-115)
[2021-03-31 20:14] LABS: Glucose, Whole Blood 280 mg/dL (60-115)
[2021-03-31] MEDS: Insulin Glargine,Hum.rec.anlog 100 UNIT/ML 10 ML VIAL 42 UNIT SUBCUT (21:42)
[2021-03-31] MEDS: Aspirin Enteric Coated 81 MG TABLET.DR PO (21:44)
[2021-03-31] MEDS: oxyCODONE HCl Immed Release 5 MG TABLET 10 MG PO (21:58)
[2021-03-31 23:53] VITALS: BP 95/70; PULSE 89; RESP 18; TEMP 36.9; O2SAT 99
[2021-04-01] MEDS: 0.9 % Sodium Chloride Flush 3 ML SYRINGE IVFLUSH ×4 (00:35→23:55)
[2021-04-01] MEDS: Clindamycin Phosphate/D5W 600 MG/50 ML PIGGYBACK 100 MG IV ×3 (04:14→21:23)
[2021-04-01] MEDS: Omeprazole 20 MG CAPSULE.DR PO (05:58)
--- NOTE | 2021-04-01 06:41 | HO.POSTANES ---
Post Anesthesia Evaluation Post Anesthesia Evaluation Vital Signs: Vital Signs Temp Pulse Resp BP Pulse Ox 03/31/21 23:53 98.4 F 89 18 95/70 99 Anesthesia: Nerve Block Mental Status: Awake Pain Control: Satisfactory Nausea/Vomiting: None Hydration: Adequate Anesthesia-Related Issues: No Anes. Related Issues
[2021-04-01 07:03] VITALS: BP 147/77; PULSE 73; RESP 19; TEMP 35.5; O2SAT 100
[2021-04-01 07:15] LABS: Glucose, Whole Blood 136 mg/dL (60-115)
[2021-04-01] MEDS: Metoprolol Succinate ER 50 MG TAB.ER.24H PO (08:30)
[2021-04-01] MEDS: Ticagrelor 90 MG TABLET PO ×2 (08:31→21:23)
[2021-04-01] MEDS: Morphine Sulfate ER 30 MG TABLET.ER PO ×2 (08:31→21:24)
[2021-04-01] MEDS: amLODIPine Besylate 5 MG TABLET PO (08:31)
[2021-04-01] MEDS: lisinopriL 40 MG TABLET PO (08:31)
[2021-04-01] MEDS: Atorvastatin Calcium 80 MG TABLET PO (08:31)
[2021-04-01 09:13] LABS: Hematocrit 39.5 % (42-52); Hemoglobin 12.6 g/dl (14.0-18.0)
[2021-04-01] MEDS: oxyCODONE HCl Immed Release 5 MG TABLET 10 MG PO ×3 (09:36→21:22)
[2021-04-01] MEDS: polyethylene glycoL 3350 17 GM POWD.PACK PO (10:46)
[2021-04-01 11:40] LABS: Glucose, Whole Blood 185 mg/dL (60-115)
[2021-04-01] MEDS: Insulin Lispro 100 UNIT/ML 3 ML VIAL SUBCUT ×3 (11:44→21:21)
--- NOTE | 2021-04-01 11:56 | P.PNIM_ITS ---
Subjective Subjective Date of Service: 04/01/21 Interval History: still bleeding from wound pain better controlled no fever Physical Exam 2 Vital Signs: Vital Signs: Last Vital Signs Temp 96 F L 04/01/21 07:03 Pulse 73 04/01/21 07:03 Resp 19 04/01/21 07:03 BP 147/77 H 04/01/21 07:03 Pulse Ox 100 04/01/21 07:03 Body Mass Index 29.2 Gen: in no acute distress HEENT: sclera anicteric, moist mucus membranes Neck: supple Lungs: clear to auscultation bilaterally Heart: regular rate and rhythm, no murmurs Abd: soft, non-tender, non-distended Ext: R hand swollen and in surgical dressing soaked with serosangiunous drainage Skin: warm/well-perfused Neuro: alert and oriented x3, no focal findings Psych: appropriate affect Objective Data Current Medications Generic Name Dose Route Start Last Admin Trade Name Freq PRN Reason Stop Dose Admin Amlodipine Besylate 5 mg 03/29/21 09:00 04/01/21 08:31 Amlodipine Besylate 5 Mg Tablet PO 5 mg DAILY [facility] Administration Protocol Aspirin 81 mg 03/28/21 21:00 03/31/21 21:44 Aspirin Enteric Coated 81 Mg Tablet.Dr PO 81 mg BEDTIME [facility] Administration Atorvastatin Calcium 80 mg 03/29/21 09:00 04/01/21 08:31 Atorvastatin Calcium 80 Mg Tablet PO 80 mg DAILY [facility] Administration Fentanyl 25 mcg 03/30/21 11:09 Fentanyl Citrate/Pf 100 Mcg/2 Ml Vial IVPUSH Q5M PRN Pain, Moderate (Pain Scale 4-6 Hydromorphone HCl 0.25 mg 03/30/21 11:09 03/31/21 00:51 Hydromorphone Hcl 0.5 Mg/0.5 Ml Syringe IVPUSH 0.25 mg Q5M PRN Administration Pain, Severe (Pain Scale 7-10) Clindamycin Phosphate 600 mg in 50 mls @ 100 mls/hr 03/29/21 12:00 04/01/21 04:46 Cleocin IV Infused Q8H [facility] Infusion Levofloxacin 500 mg in 100 mls @ 100 mls/hr 03/29/21 12:00 03/31/21 15:29 Levaquin IV Infused Q24H [facility] Infusion Insulin Glargine 45 unit 04/01/21 21:00 Insulin Glargine,Hum.Rec.Anlog 100 Unit/Ml 10 Ml Vial SUBCUT BEDTIME [facility] Insulin Human Lispro 0 unit 03/28/21 21:00 04/01/21 11:44 Insulin Lispro 100 Unit/Ml 3 Ml Vial SUBCUT 2 unit QIDACHS [facility] Administration Protocol Lisinopril 40 mg 03/29/21 09:00 04/01/21 08:31 Lisinopril 40 Mg Tablet PO 40 mg DAILY [facility] Administration Protocol Metoprolol Succinate 50 mg 03/29/21 09:00 04/01/21 08:30 Metoprolol Succinate Er 50 Mg Tab.Er.24h PO 50 mg DAILY [facility] Administration Protocol Morphine Sulfate 30 mg 03/28/21 20:00 04/01/21 08:31 Morphine Sulfate Er 30 Mg Tablet.Er PO 30 mg Q12H [facility] Administration Omeprazole 20 mg 03/29/21 06:30 04/01/21 05:58 Omeprazole 20 Mg Capsule.Dr PO 20 mg DAILY@0630 [facility] Administration Ondansetron HCl 4 mg 03/30/21 11:09 Ondansetron Hcl 4 Mg/2 Ml Vial IVPUSH ONCE PRN Nausea and Vomiting Oxycodone HCl 10 mg 03/31/21 18:32 04/01/21 09:36 Oxycodone Hcl Immed Release 5 Mg Tablet PO 10 mg Q6H PRN Administration Pain, Severe (Pain Scale 7-10) Pharmacy Consult 1 each 03/28/21 16:25 Consult Rx Perform Med Rec MISCELLANE ONCE PRN Consult order Polyethylene Glycol 17 gm 04/01/21 10:05 04/01/21 10:46 Polyethylene Glycol 3350 17 Gm Powd.Pack PO 17 gm DAILY [facility] Administration Sodium Chloride 3 ml 03/29/21 00:00 04/01/21 08:30 0.9 % Sodium Chloride Flush 3 Ml Syringe IVFLUSH 3 ml QSHIFT [facility] Administration Ticagrelor 90 mg 03/28/21 21:00 04/01/21 08:31 Ticagrelor 90 Mg Tablet PO 90 mg BID [facility] Administration Labs CBC & Chem 7: 04/01/21 08:57 03/31/21 04:43 Labs: Laboratory Results - last 24 hr 03/31/21 03/31/21 04/01/21 16:24 20:03 07:11 Hgb Hct POC Glucose 233 H 280 H 136 H 04/01/21 04/01/21 08:57 11:36 Hgb 12.6 L Hct 39.5 L POC Glucose 185 H Microbiology Microbiology Results: Microbiology 03/30/21 00:00 Wrist Right Gram Stain - Final 03/30/21 00:00 Wrist Right Routine Culture - Final No growth after 2 days 03/30/21 00:00 Hand Right Gram Stain - Final 03/30/21 00:00 Hand Right Routine Culture - Final No growth after 2 days 03/28/21 11:59 Blood - Venous Blood Culture - Preliminary No growth after 48 hours. 03/28/21 11:58 Blood - Venous Blood Culture - Preliminary No growth after 48 hours. Assessment and Plan (1) Cellulitis: Status: Acute Assessment and Plan: hospital d#5 61-year-old male presented with right upper extremity pain and swelling after dog bite # dog bite associated cellulitis with R thenar hematoma + R dorsal wrist abscess about extensor tendons - POD #2 I+D by orthopedics, following - clinda + levoflox d#02/26 per ID, following # CAD with recent PCI - continue DAPT, statin # HTN - continue amlodipine, metoprolol succinate, lisinopril # DM2 - hold MTF, continue basal/bolus insulin # VTE ppx - d/c'ed LMWH due to bleeding from wound - SCDs
--- NOTE | 2021-04-01 12:32 | P.CONGS_ITS ---
History of Present Illness Consult details Consult date: 04/01/21 Narrative: 61-year-old male in the hospital because of right an abscess. He apparently had a dog bite last week. He needed an I and D of an abscess in the right hand as well as the wrist in the operating room with the hand surgeon last 03/30/2021. He is currently in the hospital for wound care as well as for IV antibiotics. He had complained of an area of swelling and induration in the left groin. He says he has had a cystic mass here for many years but this seemed to have become swollen. He denies any drainage. He was therefore referred to me. Review of Systems 2 Constitutional: Constitutional: Denies chills and Denies fever(s) Cardiovascular: Cardiovascular: Denies chest pain, Denies dyspnea and Denies dyspnea on exertion Respiratory: Respiratory: Denies cough, Denies dyspnea and Denies dyspnea on exertion Gastrointestinal: Gastrointestinal: Denies hematochezia and Denies change in bowel habits Genitourinary: Genitourinary: Denies hematuria and Denies difficulty urinating Musculoskeletal: Musculoskeletal: Denies back pain and Denies limited range of motion Neurologic: Denies focal weakness and Denies convulsions Psychiatric: Psychiatric: Denies depression and Denies mood swings PMFSH Past Medical History Medical History (Updated 04/01/21 @ 12:35 by Gallito Fleming MD) Acute coronary syndrome Atherosclerotic cardiovascular disease Diabetes Epidermal cyst Essential hypertension HTN (hypertension) NSTEMI (non-ST elevated myocardial infarction) Smoking Type 2 diabetes mellitus with unspecified complications Family History Family History Father No problems noted. Mother Leukemia HTN (hypertension) Family history: reviewed and not pertinent Surgical History Surgical History History of cardiac cath (~03/2019) S/P cardiac cath Social History Social History Household Members: None Housing: Apartment Do you presently have visiting nurse or other home services: No Alcohol intake: never Smoking Status: Current every day smoker Tobacco Type: Cigarette Packs Per Day: 0.25 Cigarettes Per Day: 4 Smoked in Last 30 Days: Yes Second Hand Smoke Exposure: No Use of substances other than those prescribed or required for medical reasons: No Substance Use Type: Marijuana Currently Displaying Signs/Symptoms of Drug Intoxication Withdrawal: No Have you been hit, kicked, punched, or otherwise hurt by someone within the past year? If so, by whom?: No Do you feel safe in your current relationship?: No Is there a partner from a previous relationship who is making you feel unsafe now?: No Are you made to feel afraid or neglected: No Spiritual Healthcare Practices: n/a Ep[employer]alian Healthcare Practices: n/a Cultural Healthcare Practices: n/a Are you DNR?: No Advance Directives: Yes Advance Directives on File: Yes Advance Directives Date on File: 02/04/21 Do you have thoughts of harming others: None Do you have a plan to hurt others: No Plan Recently lost weight without trying: No Eating poorly because of decreased appetite: No Poor oral hygiene: No service: No Current occupational status: unemployed Meds Allergies Allergy/AdvReac Type Severity Reaction Status Date / Time No Known Allergies Allergy Verified 03/27/21 00:22 [No Known Allergies*] Active Medications: Current Medications Generic Name Dose Route Start Last Admin Trade Name Freq PRN Reason Stop Dose Admin Amlodipine Besylate 5 mg 03/29/21 09:00 04/01/21 08:31 Amlodipine Besylate 5 Mg Tablet PO 5 mg DAILY [facility] Administration Protocol Aspirin 81 mg 03/28/21 21:00 03/31/21 21:44 Aspirin Enteric Coated 81 Mg Tablet. PO 81 mg BEDTIME [facility] Administration Atorvastatin Calcium 80 mg 03/29/21 09:00 04/01/21 08:31 Atorvastatin Calcium 80 Mg Tablet PO 80 mg DAILY [facility] Administration Fentanyl 25 mcg 03/30/21 11:09 Fentanyl Citrate/Pf 100 Mcg/2 Ml Vial IVPUSH Q5M PRN Pain, Moderate (Pain Scale 4-6 Hydromorphone HCl 0.25 mg 03/30/21 11:09 03/31/21 00:51 Hydromorphone Hcl 0.5 Mg/0.5 Ml Syringe IVPUSH 0.25 mg Q5M PRN Administration Pain, Severe (Pain Scale 7-10) Clindamycin Phosphate 600 mg in 50 mls @ 100 mls/hr 03/29/21 12:00 04/01/21 04:46 Cleocin IV Infused Q8H [facility] Infusion Levofloxacin 500 mg in 100 mls @ 100 mls/hr 03/29/21 12:00 03/31/21 15:29 Levaquin IV Infused Q24H [facility] Infusion Insulin Glargine 45 unit 04/01/21 21:00 Insulin Glargine,Hum.Rec.Anlog 100 Unit/Ml 10 Ml Vial SUBCUT BEDTIME [facility] Insulin Human Lispro 0 unit 03/28/21 21:00 04/01/21 11:44 Insulin Lispro 100 Unit/Ml 3 Ml Vial SUBCUT 2 unit QIDACHS [facility] Administration Protocol Lisinopril 40 mg 03/29/21 09:00 04/01/21 08:31 Lisinopril 40 Mg Tablet PO 40 mg DAILY [facility] Administration Protocol Metoprolol Succinate 50 mg 03/29/21 09:00 04/01/21 08:30 Metoprolol Succinate Er 50 Mg Tab.Er.24h PO 50 mg DAILY [facility] Administration Protocol Morphine Sulfate 30 mg 03/28/21 20:00 04/01/21 08:31 Morphine Sulfate Er 30 Mg Tablet.Er PO 30 mg Q12H [facility] Administration Omeprazole 20 mg 03/29/21 06:30 04/01/21 05:58 Omeprazole 20 Mg Capsule.Dr PO 20 mg DAILY@0630 [facility] Administration Ondansetron HCl 4 mg 03/30/21 11:09 Ondansetron Hcl 4 Mg/2 Ml Vial IVPUSH ONCE PRN Nausea and Vomiting Oxycodone HCl 10 mg 03/31/21 18:32 04/01/21 09:36 Oxycodone Hcl Immed Release 5 Mg Tablet PO 10 mg Q6H PRN Administration Pain, Severe (Pain Scale 7-10) Pharmacy Consult 1 each 03/28/21 16:25 Consult Rx Perform Med Rec MISCELLANE ONCE PRN Consult order Polyethylene Glycol 17 gm 04/01/21 10:05 04/01/21 10:46 Polyethylene Glycol 3350 17 Gm Powd.Pack PO 17 gm DAILY [facility] Administration Sodium Chloride 3 ml 03/29/21 00:00 04/01/21 08:30 0.9 % Sodium Chloride Flush 3 Ml Syringe IVFLUSH 3 ml QSHIFT [facility] Administration Ticagrelor 90 mg 03/28/21 21:00 04/01/21 08:31 Ticagrelor 90 Mg Tablet PO 90 mg BID [facility] Administration Home Medications Medication Instructions Recorded Confirmed Last Taken Type Lantus Solostar U-100 Insulin 42 unit SUBCUT BEDTIME 10/03/20 03/28/21 10/02/20 History metformin 1,000 mg BID 10/03/20 03/28/21 10/02/20 History omeprazole 20 mg DAILY 10/03/20 03/28/21 10/02/20 History amlodipine 1 tab PO QAM 02/01/21 03/28/21 Unknown History lisinopril 40 mg PO DAILY 02/01/21 03/28/21 Unknown History morphine 1 tab PO Q12H 02/01/21 03/28/21 Unknown History oxycodone-acetaminophen 1 tab PO Q8H PRN 02/01/21 03/28/21 Unknown History atorvastatin 80 mg tablet 80 mg PO BEDTIME 02/18/21 03/28/21 Unknown History ticagrelor 90 mg tablet 90 mg PO BID 02/18/21 03/28/21 Unknown History omega-3 fatty acids-fish oil [Fish 1 cap PO TID 03/28/21 03/28/21 Unknown History Oil] Physical Exam Vital Signs: Vital Signs: Last Vital Signs Temp 96 F L 04/01/21 07:03 Pulse 73 04/01/21 07:03 Resp 19 04/01/21 07:03 BP 147/77 H 04/01/21 07:03 Pulse Ox 100 04/01/21 07:03 Body Mass Index 29.2 Const: General: comfortable and no acute distress Orientation/conscious ness: patient oriented x3 Neck: Neck: Yes no lymphadenopathy Resp: Auscultation: clear to auscultation bilaterally Cardio: Rhythm: regular rhythm GI: Palpation (GI): Soft to palpation, nontender and no guarding Skin: Other: On the left groin area is note of a cystic induration, about 2.5 cm, nonfluctuant, tender, no significant surrounding cellulitis, not draining Neuro: General: patient oriented x3 Extrem: Other: Right hand with dressings, clean and dry Results Labs Result diagrams: 04/01/21 08:57 03/31/21 04:43 Labs: Abnormal lab results 03/31/21 03/31/21 04/01/21 Range/Units 16:24 20:03 07:11 Hgb (14.0-18.0) g/dl Hct (42-52) % POC Glucose 233 H 280 H 136 H (60-115) mg/dL 04/01/21 04/01/21 Range/Units 08:57 11:36 Hgb 12.6 L (14.0-18.0) g/dl Hct 39.5 L (42-52) % POC Glucose 185 H (60-115) mg/dL Short CBC 04/01/21 Range/Units 08:57 Hgb 12.6 L (14.0-18.0) g/dl Hct 39.5 L (42-52) % All other labs normal. Assessment and Plan (1) Epidermal cyst: Status: Acute He has what appears to be a ruptured epidermal cyst on the left groin area as described above. At this time, it does not appear that he needs I and D. t old him that he will benefit from warm compresses to the area. He is already on IV antibiotics for his hand infection so this should provide coverage for this ruptured epidermal cyst. I plan to re-evaluate this tomorrow. Most likely, this should resolve on its own but he may need formal excision down the line for this epidermal cyst. Procedures Date of Service Date of Service: 04/01/21
--- NOTE | 2021-04-01 12:56 | P.PNOP_ITS ---
Subjective Subjective Date of Service: 04/01/21 Interval history: POD 2 I&D Rt hand no overnight events continues to have bleeding to the right hand Physical Exam Vital Signs: Vital Signs: Last Vital Signs Temp 96 F L 04/01/21 07:03 Pulse 73 04/01/21 07:03 Resp 19 04/01/21 07:03 BP 147/77 H 04/01/21 07:03 Pulse Ox 100 04/01/21 07:03 Body Mass Index 29.2 Const: General: cooperative, healthy appearing and no acute distress Resp: Effort & Inspection: normal respiratory effort and able to speak in complete sentences Cardio: Rate: regular rate Peripheral pulses: Peripheral pulses 2+ throughout GI: Palpation (GI): Soft to palpation Skin: General skin exam: no rashes or lesions noted Extrem: Other: Right hand incisions clean dry and intact. Mild swelling. Sensation intact, Tenderness over the dorsum of the hand and thenar aspect. Progress Note: A&P Assessment and plan (1) Abscess of hand, right: Problem details: Hand cellulitis post injury Organisms include gram negative,gram positive (Pasteurella) Status: Acute Assessment and Plan: continue dressing changes d/c anticoag take to OR 04/03/21 for evac. of hematoma Fall Risk Details Current Medications: Current Medications Generic Name Dose Route Start Last Admin Trade Name Freq PRN Reason Stop Dose Admin Amlodipine Besylate 5 mg 03/29/21 09:00 04/01/21 08:31 Amlodipine Besylate 5 Mg Tablet PO 5 mg DAILY CELSO Administration Protocol Aspirin 81 mg 03/28/21 21:00 03/31/21 21:44 Aspirin Enteric Coated 81 Mg Tablet. PO 81 mg BEDTIME CELSO Administration Atorvastatin Calcium 80 mg 03/29/21 09:00 04/01/21 08:31 Atorvastatin Calcium 80 Mg Tablet PO 80 mg DAILY [facility] Administration Fentanyl 25 mcg 03/30/21 11:09 Fentanyl Citrate/Pf 100 Mcg/2 Ml Vial IVPUSH Q5M PRN Pain, Moderate (Pain Scale 4-6 Hydromorphone HCl 0.25 mg 03/30/21 11:09 03/31/21 00:51 Hydromorphone Hcl 0.5 Mg/0.5 Ml Syringe IVPUSH 0.25 mg Q5M PRN Administration Pain, Severe (Pain Scale 7-10) Clindamycin Phosphate 600 mg in 50 mls @ 100 mls/hr 03/29/21 12:00 04/01/21 12:53 Cleocin IV 100 mls/hr Q8H CELSO Administration Levofloxacin 500 mg in 100 mls @ 100 mls/hr 03/29/21 12:00 03/31/21 15:29 Levaquin IV Infused Q24H [facility] Infusion Insulin Glargine 45 unit 04/01/21 21:00 Insulin Glargine,Hum.Rec.Anlog 100 Unit/Ml 10 Ml Vial SUBCUT BEDTIME CELSO Insulin Human Lispro 0 unit 03/28/21 21:00 04/01/21 11:44 Insulin Lispro 100 Unit/Ml 3 Ml Vial SUBCUT 2 unit QIDACHS [facility] Administration Protocol Lisinopril 40 mg 03/29/21 09:00 04/01/21 08:31 Lisinopril 40 Mg Tablet PO 40 mg DAILY CELSO Administration Protocol Metoprolol Succinate 50 mg 03/29/21 09:00 04/01/21 08:30 Metoprolol Succinate Er 50 Mg Tab.Er.24h PO 50 mg DAILY [facility] Administration Protocol Morphine Sulfate 30 mg 03/28/21 20:00 04/01/21 08:31 Morphine Sulfate Er 30 Mg Tablet.Er PO 30 mg Q12H [facility]ELSO Administration Omeprazole 20 mg 03/29/21 06:30 04/01/21 05:58 Omeprazole 20 Mg Capsule.Dr PO 20 mg DAILY@0630 CELSO Administration Ondansetron HCl 4 mg 03/30/21 11:09 Ondansetron Hcl 4 Mg/2 Ml Vial IVPUSH ONCE PRN Nausea and Vomiting Oxycodone HCl 10 mg 03/31/21 18:32 04/01/21 09:36 Oxycodone Hcl Immed Release 5 Mg Tablet PO 10 mg Q6H PRN Administration Pain, Severe (Pain Scale 7-10) Pharmacy Consult 1 each 03/28/21 16:25 Consult Rx Perform Med Rec MISCELLANE ONCE PRN Consult order Polyethylene Glycol 17 gm 04/01/21 10:05 04/01/21 10:46 Polyethylene Glycol 3350 17 Gm Powd.Pack PO 17 gm DAILY CELSO Administration Sodium Chloride 3 ml 03/29/21 00:00 04/01/21 08:30 0.9 % Sodium Chloride Flush 3 Ml Syringe IVFLUSH 3 ml QSHIFT [facility] Administration Ticagrelor 90 mg 03/28/21 21:00 04/01/21 08:31 Ticagrelor 90 Mg Tablet PO 90 mg BID CELSO Administration Time Spent With Patient Time: Total time spent is greater than 50% in coordination of care (as faustino dc) at patient's floor/unit and/or counseling patient: Time with patient: less than 15 minutes Procedures Date of Service Date of Service: 04/01/21
[2021-04-01] MEDS: levoFLOXacin/D5W 500 MG/100 ML PIGGYBACK 100 MG IV (14:12)
--- NOTE | 2021-04-01 14:13 | MHC.CM.PN ---
PER PHYSICIAN ROUNDS, PATIENT IS BLEEDING FROM WOUND, AND EXPECTED TO REMAIN UNTIL HE IS ABLE TO DISCHARGE HOME ON PO ABX.
--- NOTE | 2021-04-01 14:43 | MHC.CM.PN ---
POSSIBLE DISCHARGE TO HOME ON PO ABX WEDNESDAY NO SERVICES ANTICIPATED
[2021-04-01 15:31] VITALS: BP 98/74; PULSE 81; RESP 18; TEMP 36.9; O2SAT 100
[2021-04-01 16:28] LABS: Glucose, Whole Blood 190 mg/dL (60-115)
--- NOTE | 2021-04-01 17:06 | PC.NURSE ---
P patient has scheduled Brilinta and Aspirin,day RN reported right hand wound bleeding I Dr. Shi notified E awaiting orders
[2021-04-01 20:20] LABS: Glucose, Whole Blood 198 mg/dL (60-115)
[2021-04-01] MEDS: Insulin Glargine,Hum.rec.anlog 100 UNIT/ML 10 ML VIAL 45 UNIT SUBCUT (21:21)
[2021-04-01] MEDS: Aspirin Enteric Coated 81 MG TABLET.DR PO (21:23)
[2021-04-01 23:34] VITALS: BP 157/85; PULSE 81; RESP 18; TEMP 36.4; O2SAT 99
[2021-04-02] MEDS: Clindamycin Phosphate/D5W 600 MG/50 ML PIGGYBACK 100 MG IV ×3 (03:59→21:03)
[2021-04-02] MEDS: Omeprazole 20 MG CAPSULE.DR PO (05:55)
[2021-04-02 07:21] LABS: Hematocrit 34.1 % (42-52); Mean Corpuscular HGB Conc 32.3 g/dl (31.0-36.0); Mean Corpuscular Hemoglobin 27.2 pg (27.0-33.0); Mean Corpuscular Volume 84.2 fL (80-98); Mean Platelet Volume 9.1 fL (9.4-12.4); Platelet Count 336 X10*3/uL (160-400); Red Blood Count 4.05 X10*6/uL (4.60-5.80); Red Cell Distribution Width 14.3 % (11.0-16.0); White Blood Count 8.3 X10*3/uL (4.8-10.8)
[2021-04-02 07:34] VITALS: BP 125/74; PULSE 76; RESP 18; TEMP 36; O2SAT 100
--- NOTE | 2021-04-02 07:38 | PM.PNORT ---
Subjective Subjective Date of Service: 04/02/21 Interval history: POD3 s/p right thenar hematoma and right dorsal wrist abscess about extensor tendons. Patient is resting comfortably in bed. No overnight events. Pain is well managed. No additional complaints. Physical Exam Vital Signs: Vital Signs: Last Vital Signs Temp 97.6 F 04/01/21 23:34 Pulse 81 04/01/21 23:34 Resp 18 04/01/21 23:34 BP 157/85 H 04/01/21 23:34 Pulse Ox 99 04/01/21 23:34 Body Mass Index 29.2 Const: General: cooperative, healthy appearing and no acute distress Resp: Effort & Inspection: normal respiratory effort and able to speak in complete sentences Cardio: Rate: regular rate Peripheral pulses: Peripheral pulses 2+ throughout GI: Palpation (GI): Soft to palpation Skin: Lesions: no lesions Rashes: no rashes Extrem: Other: Right hand incisions clean dry and intact. Mild swelling. Sensation intact. Tenderness over the dorsum of the hand and thenar aspect. Is able to demonstrate all digits flexion and extension but is limited due to pain and edema. Progress Note: A&P Assessment and plan (1) Abscess of hand, right: Problem details: Hand cellulitis post injury Organisms include gram negative,gram positive (Pasteurella) Status: Acute (2) Cellulitis: Status: Acute Assessment and Plan: Continue dressing changes Take to OR 04/03/21 for evacuation of hematoma with Dr. Neville (3) Dog bite of extremity: Status: Acute Fall Risk Details Current Medications: Current Medications Generic Name Dose Route Start Last Admin Trade Name Freq PRN Reason Stop Dose Admin Amlodipine Besylate 5 mg 03/29/21 09:00 04/01/21 08:31 Amlodipine Besylate 5 Mg Tablet PO 5 mg DAILY CELSO Administration Protocol Aspirin 81 mg 03/28/21 21:00 04/01/21 21:23 Aspirin Enteric Coated 81 Mg Tablet. PO 81 mg BEDTIME CELSO Administration Atorvastatin Calcium 80 mg 03/29/21 09:00 04/01/21 08:31 Atorvastatin Calcium 80 Mg Tablet PO 80 mg DAILY CELSO Administration Fentanyl 25 mcg 03/30/21 11:09 Fentanyl Citrate/Pf 100 Mcg/2 Ml Vial IVPUSH Q5M PRN Pain, Moderate (Pain Scale 4-6 Hydromorphone HCl 0.25 mg 03/30/21 11:09 03/31/21 00:51 Hydromorphone Hcl 0.5 Mg/0.5 Ml Syringe IVPUSH 0.25 mg Q5M PRN Administration Pain, Severe (Pain Scale 7-10) Clindamycin Phosphate 600 mg in 50 mls @ 100 mls/hr 03/29/21 12:00 04/02/21 04:30 Cleocin IV Infused Q8H [facility]SO Infusion Levofloxacin 500 mg in 100 mls @ 100 mls/hr 03/29/21 12:00 04/01/21 15:57 Levaquin IV Infused Q24H [facility]SO Infusion Insulin Glargine 45 unit 04/01/21 21:00 04/01/21 21:21 Insulin Glargine,Hum.Rec.Anlog 100 Unit/Ml 10 Ml Vial SUBCUT 45 unit BEDTIME CELSO Administration Insulin Human Lispro 0 unit 03/28/21 21:00 04/01/21 21:21 Insulin Lispro 100 Unit/Ml 3 Ml Vial SUBCUT 2 unit QIDACHS [facility] Administration Protocol Lisinopril 40 mg 03/29/21 09:00 04/01/21 08:31 Lisinopril 40 Mg Tablet PO 40 mg DAILY [facility] Administration Protocol Metoprolol Succinate 50 mg 03/29/21 09:00 04/01/21 08:30 Metoprolol Succinate Er 50 Mg Tab.Er.24h PO 50 mg DAILY [facility] Administration Protocol Morphine Sulfate 30 mg 03/28/21 20:00 04/01/21 21:24 Morphine Sulfate Er 30 Mg Tablet.Er PO 30 mg Q12H [facility]ELSO Administration Omeprazole 20 mg 03/29/21 06:30 04/02/21 05:55 Omeprazole 20 Mg Capsule.Dr PO 20 mg DAILY@0630 [facility] Administration Ondansetron HCl 4 mg 03/30/21 11:09 Ondansetron Hcl 4 Mg/2 Ml Vial IVPUSH ONCE PRN Nausea and Vomiting Oxycodone HCl 10 mg 03/31/21 18:32 04/01/21 21:22 Oxycodone Hcl Immed Release 5 Mg Tablet PO 10 mg Q6H PRN Administration Pain, Severe (Pain Scale 7-10) Pharmacy Consult 1 each 03/28/21 16:25 Consult Rx Perform Med Rec MISCELLANE ONCE PRN Consult order Polyethylene Glycol 17 gm 04/01/21 10:05 04/01/21 10:46 Polyethylene Glycol 3350 17 Gm Powd.Pack PO 17 gm DAILY [facility]EL[facility] Administration Sodium Chloride 3 ml 03/29/21 00:00 04/01/21 23:55 0.9 % Sodium Chloride Flush 3 Ml Syringe IVFLUSH 3 ml QSHIFT [facility] Administration Ticagrelor 90 mg 03/28/21 21:00 04/01/21 21:23 Ticagrelor 90 Mg Tablet PO 90 mg BID CELSO Administration Time Spent With Patient Time: Total time spent is greater than 50% in coordination of care (as documented) at patient's floor/unit and/or counseling patient: Time with patient: less than 15 minutes Procedures Date of Service Date of Service: 04/02/21
[2021-04-02 07:42] LABS: Glucose, Whole Blood 177 mg/dL (60-115)
[2021-04-02 07:55] LABS: C Reactive Protein 3.16 mg/dL (< or = 0.50)
[2021-04-02] MEDS: Insulin Lispro 100 UNIT/ML 3 ML VIAL SUBCUT ×4 (08:06→21:02)
[2021-04-02] MEDS: 0.9 % Sodium Chloride Flush 3 ML SYRINGE IVFLUSH ×2 (08:06→16:35)
[2021-04-02] MEDS: Atorvastatin Calcium 80 MG TABLET PO (08:07)
[2021-04-02] MEDS: Morphine Sulfate ER 30 MG TABLET.ER PO (08:07)
[2021-04-02] MEDS: lisinopriL 40 MG TABLET PO (08:08)
[2021-04-02] MEDS: amLODIPine Besylate 5 MG TABLET PO (08:08)
[2021-04-02] MEDS: Metoprolol Succinate ER 50 MG TAB.ER.24H PO (08:08)
[2021-04-02] MEDS: Ticagrelor 90 MG TABLET PO ×2 (08:08→21:03)
[2021-04-02] MEDS: polyethylene glycoL 3350 17 GM POWD.PACK PO (10:08)
[2021-04-02] MEDS: oxyCODONE HCl Immed Release 5 MG TABLET 10 MG PO ×2 (10:46→16:35)
[2021-04-02] MEDS: levoFLOXacin/D5W 500 MG/100 ML PIGGYBACK 100 MG IV (10:47)
[2021-04-02 11:32] LABS: Glucose, Whole Blood 197 mg/dL (60-115)
--- NOTE | 2021-04-02 11:43 | HO.PM.IMPN ---
Subjective Subjective Date of Service: 04/02/21 Interval History: C/o R hand swelling, pain, and ongoing drainage No fever/chills No chest pain Physical Exam Vital Signs: Vital Signs: Last Vital Signs Temp 96.8 F 04/02/21 07:34 Pulse 76 04/02/21 07:34 Resp 18 04/02/21 07:34 BP 125/74 04/02/21 07:34 Pulse Ox 100 04/02/21 07:34 Body Mass Index 29.2 Gen: in no acute distress HEENT: sclera anicteric, moist mucus membranes Neck: supple Lungs: clear to auscultation bilaterally Heart: regular rate and rhythm, no murmurs Abd: soft, non-tender, non-distended Ext: R hand swollen and in surgical dressing soaked with serosangiunous drainage Skin: warm/well-perfused. Tender nodule or cyst in left inguinal area without drainage. Neuro: alert and oriented x3, no focal findings Psych: appropriate affect Objective Data Current Medications Generic Name Dose Route Start Last Admin Trade Name Guiq PRN Reason Stop Dose Admin Amlodipine Besylate 5 mg 03/29/21 09:00 04/02/21 08:08 Amlodipine Besylate 5 Mg Tablet PO 5 mg DAILY [facility]ELSO Administration Protocol Aspirin 81 mg 03/28/21 21:00 04/01/21 21:23 Aspirin Enteric Coated 81 Mg Tablet. PO 81 mg BEDTIME CELSO Administration Atorvastatin Calcium 80 mg 03/29/21 09:00 04/02/21 08:07 Atorvastatin Calcium 80 Mg Tablet PO 80 mg DAILY [facility] Administration Fentanyl 25 mcg 03/30/21 11:09 Fentanyl Citrate/Pf 100 Mcg/2 Ml Vial IVPUSH Q5M PRN Pain, Moderate (Pain Scale 4-6 Hydromorphone HCl 0.25 mg 03/30/21 11:09 03/31/21 00:51 Hydromorphone Hcl 0.5 Mg/0.5 Ml Syringe IVPUSH 0.25 mg Q5M PRN Administration Pain, Severe (Pain Scale 7-10) Clindamycin Phosphate 600 mg in 50 mls @ 100 mls/hr 03/29/21 12:00 04/02/21 04:30 Cleocin IV Infused Q8H [facility]SO Infusion Levofloxacin 500 mg in 100 mls @ 100 mls/hr 03/29/21 12:00 04/02/21 10:47 Levaquin IV 100 mls/hr Q24H [facility] Administration Insulin Glargine 45 unit 04/01/21 21:00 04/01/21 21:21 Insulin Glargine,Hum.Rec.Anlog 100 Unit/Ml 10 Ml Vial SUBCUT 45 unit BEDTIME [facility]ELSO Administration Insulin Human Lispro 0 unit 03/28/21 21:00 04/02/21 08:06 Insulin Lispro 100 Unit/Ml 3 Ml Vial SUBCUT 2 unit QIDACHS [facility] Administration Protocol Lisinopril 40 mg 03/29/21 09:00 04/02/21 08:08 Lisinopril 40 Mg Tablet PO 40 mg DAILY [facility] Administration Protocol Metoprolol Succinate 50 mg 03/29/21 09:00 04/02/21 08:08 Metoprolol Succinate Er 50 Mg Tab.Er.24h PO 50 mg DAILY [facility] Administration Protocol Morphine Sulfate 30 mg 03/28/21 20:00 04/02/21 08:07 Morphine Sulfate Er 30 Mg Tablet.Er PO 30 mg Q12H [facility]ELSO Administration Omeprazole 20 mg 03/29/21 06:30 04/02/21 05:55 Omeprazole 20 Mg Capsule. PO 20 mg DAILY@0630 CELSO Administration Ondansetron HCl 4 mg 03/30/21 11:09 Ondansetron Hcl 4 Mg/2 Ml Vial IVPUSH ONCE PRN Nausea and Vomiting Oxycodone HCl 10 mg 03/31/21 18:32 04/02/21 10:46 Oxycodone Hcl Immed Release 5 Mg Tablet PO 10 mg Q6H PRN Administration Pain, Severe (Pain Scale 7-10) Pharmacy Consult 1 each 03/28/21 16:25 Consult Rx Perform Med Rec MISCELLANE ONCE PRN Consult order Polyethylene Glycol 17 gm 04/01/21 10:05 04/02/21 10:08 Polyethylene Glycol 3350 17 Gm Powd.Pack PO 17 gm DAILY CELSO Administration Sodium Chloride 3 ml 03/29/21 00:00 04/02/21 08:06 0.9 % Sodium Chloride Flush 3 Ml Syringe IVFLUSH 3 ml QSHIFT [facility] Administration Ticagrelor 90 mg 03/28/21 21:00 04/02/21 08:08 Ticagrelor 90 Mg Tablet PO 90 mg BID CELSO Administration Labs CBC & Chem 7: 04/02/21 06:32 03/31/21 04:43 Microbiology Microbiology Results: Microbiology 03/30/21 00:00 Wrist Right Gram Stain - Final 03/30/21 00:00 Wrist Right Routine Culture - Final No growth after 2 days 03/30/21 00:00 Hand Right Gram Stain - Final 03/30/21 00:00 Hand Right Routine Culture - Final No growth after 2 days 03/28/21 11:59 Blood - Venous Blood Culture - Preliminary No growth after 48 hours. 03/28/21 11:58 Blood - Venous Blood Culture - Preliminary No growth after 48 hours. Assessment and Plan (1) Cellulitis: Status: Acute Assessment and Plan: hospital d#6 61-year-old male presented with right upper extremity pain and swelling after dog bite # dog bite associated cellulitis with R thenar hematoma + R dorsal wrist abscess about extensor tendons - POD #3 I+D by orthopedics, following - clinda + levoflox d#5/14 per ID, following # L inguinal epidermal inclusion cyst- - appreciate Gen Surg consult; apply warm compresses; may need excision in future # CAD with recent PCI - continue DAPT, statin # HTN - continue amlodipine, metoprolol succinate, lisinopril # DM2 - hold MTF, continue basal/bolus insulin # VTE ppx - d/c'ed LMWH due to bleeding from wound - SCDs
--- NOTE | 2021-04-02 12:56 | P.PNGS_ITS ---
Subjective Subjective Date of Service: 04/02/21 Interval history: Describes pain and right hand No new events reported Mild pain on the cyst on the left groin area Physical Exam Vital Signs: Vital Signs: Last Vital Signs Temp 96.8 F 04/02/21 07:34 Pulse 76 04/02/21 07:34 Resp 18 04/02/21 07:34 BP 125/74 04/02/21 07:34 Pulse Ox 100 04/02/21 07:34 Body Mass Index 29.2 Const: General: comfortable and no acute distress Resp: Effort & Inspection: normal respiratory effort Cardio: Rate: regular rate GI: Other: Left groin area with cystic induration, about 2.5 cm, nonfluctuant no cellulitis Progress Note: A&P Assessment and plan (1) Epidermal cyst: Status: Acute Assessment and Plan: Ruptured epidermal cyst on the left groin area Nonfluctuant No urgent need for I and D at this time Warm compresses I can see him in the office on discharge to discuss option of excision down the line Fall Risk Details Current Medications: Current Medications Generic Name Dose Route Start Last Admin Trade Name Freq PRN Reason Stop Dose Admin Amlodipine Besylate 5 mg 03/29/21 09:00 04/02/21 08:08 Amlodipine Besylate 5 Mg Tablet PO 5 mg DAILY [facility] Administration Protocol Aspirin 81 mg 03/28/21 21:00 04/01/21 21:23 Aspirin Enteric Coated 81 Mg Tablet.Dr PO 81 mg BEDTIME CELSO Administration Atorvastatin Calcium 80 mg 03/29/21 09:00 04/02/21 08:07 Atorvastatin Calcium 80 Mg Tablet PO 80 mg DAILY [facility] Administration Fentanyl 25 mcg 03/30/21 11:09 Fentanyl Citrate/Pf 100 Mcg/2 Ml Vial IVPUSH Q5M PRN Pain, Moderate (Pain Scale 4-6 Hydromorphone HCl 0.25 mg 03/30/21 11:09 03/31/21 00:51 Hydromorphone Hcl 0.5 Mg/0.5 Ml Syringe IVPUSH 0.25 mg Q5M PRN Administration Pain, Severe (Pain Scale 7-10) Clindamycin Phosphate 600 mg in 50 mls @ 100 mls/hr 03/29/21 12:00 04/02/21 12:31 Cleocin IV Infused Q8H [facility] Infusion Levofloxacin 500 mg in 100 mls @ 100 mls/hr 03/29/21 12:00 04/02/21 11:53 Levaquin IV Infused Q24H [facility] Infusion Insulin Glargine 45 unit 04/01/21 21:00 04/01/21 21:21 Insulin Glargine,Hum.Rec.Anlog 100 Unit/Ml 10 Ml Vial SUBCUT 45 unit BEDTIME [facility] Administration Insulin Human Lispro 0 unit 03/28/21 21:00 04/02/21 11:46 Insulin Lispro 100 Unit/Ml 3 Ml Vial SUBCUT 2 unit QIDACHS [facility] Administration Protocol Lisinopril 40 mg 03/29/21 09:00 04/02/21 08:08 Lisinopril 40 Mg Tablet PO 40 mg DAILY [facility] Administration Protocol Metoprolol Succinate 50 mg 03/29/21 09:00 04/02/21 08:08 Metoprolol Succinate Er 50 Mg Tab.Er.24h PO 50 mg DAILY [facility] Administration Protocol Morphine Sulfate 30 mg 03/28/21 20:00 04/02/21 08:07 Morphine Sulfate Er 30 Mg Tablet.Er PO 30 mg Q12H [facility] Administration Omeprazole 20 mg 03/29/21 06:30 04/02/21 05:55 Omeprazole 20 Mg Capsule.Dr PO 20 mg DAILY@0630 [facility] Administration Ondansetron HCl 4 mg 03/30/21 11:09 Ondansetron Hcl 4 Mg/2 Ml Vial IVPUSH ONCE PRN Nausea and Vomiting Oxycodone HCl 10 mg 03/31/21 18:32 04/02/21 10:46 Oxycodone Hcl Immed Release 5 Mg Tablet PO 10 mg Q6H PRN Administration Pain, Severe (Pain Scale 7-10) Pharmacy Consult 1 each 03/28/21 16:25 Consult Rx Perform Med Rec MISCELLANE ONCE PRN Consult order Polyethylene Glycol 17 gm 04/01/21 10:05 04/02/21 10:08 Polyethylene Glycol 3350 17 Gm Powd.Pack PO 17 gm DAILY [facility] Administration Sodium Chloride 3 ml 03/29/21 00:00 04/02/21 08:06 0.9 % Sodium Chloride Flush 3 Ml Syringe IVFLUSH 3 ml QSHIFT [facility] Administration Ticagrelor 90 mg 03/28/21 21:00 04/02/21 08:08 Ticagrelor 90 Mg Tablet PO 90 mg BID ECLSO Administration Time Spent With Patient Time: Total time spent is greater than 50% in coordination of care (as docum ented) at patient's floor/unit and/or counseling patient: Time with patient: less than 15 minutes Procedures Date of Service Date of Service: 04/02/21
[2021-04-02 13:01] LABS: Glucose, Whole Blood 202 mg/dL (60-115)
--- NOTE | 2021-04-02 14:55 | MHC.CM.PN ---
PER PHYSICIAN ROUNDS, PLAN IS HOME BY WEDNESDAY WITH NO NEED FOR SERVICES.
[2021-04-02 15:37] VITALS: BP 120/75; PULSE 80; RESP 12; TEMP 36.1; O2SAT 100
[2021-04-02 16:26] LABS: Glucose, Whole Blood 230 mg/dL (60-115)
[2021-04-02] MEDS: LORazepam 2 MG/ML VIAL 1 MG IVPUSH (17:37)
[2021-04-02 20:43] LABS: Glucose, Whole Blood 187 mg/dL (60-115)
[2021-04-02] MEDS: Aspirin Enteric Coated 81 MG TABLET.DR PO (21:01)
[2021-04-02] MEDS: Insulin Glargine,Hum.rec.anlog 100 UNIT/ML 10 ML VIAL 22 UNIT SUBCUT (21:01)
[2021-04-03] VITALS (14 sets, daily range): BP systolic 115–155; BP diastolic 67–90; PULSE 76–99; RESP 14–20; TEMP 36.1–36.9; O2SAT 96–100
[2021-04-03] MEDS: Clindamycin Phosphate/D5W 600 MG/50 ML PIGGYBACK 100 MG IV ×3 (03:43→20:36)
[2021-04-03] MEDS: 0.9 % Sodium Chloride Flush 3 ML SYRINGE IVFLUSH ×4 (03:43→20:37)
--- NOTE | 2021-04-03 07:24 | HO.ANESPROP2 ---
[facility] Active Problems Active Problems: All Active Problems (Updated 04/01/21 @ 12:35 by Gallito Fleming MD) Epidermal cyst (Acute) Abscess of hand, right (Acute) Cellulitis (Acute) Dog bite of extremity (Acute) Smoking (Acute) Atherosclerotic cardiovascular disease (Acute) HTN (hypertension) (Acute) Diabetes (Acute) Past Medical History Medical History Acute coronary syndrome Atherosclerotic cardiovascular disease Diabetes Epidermal cyst Essential hypertension HTN (hypertension) NSTEMI (non-ST elevated myocardial infarction) Smoking Type 2 diabetes mellitus with unspecified complications Family History Family History Father No problems noted. Mother Leukemia HTN (hypertension) Surgical History Surgical History History of cardiac cath (~03/2019) S/P cardiac cath Social History Social History Household Members: None Housing: Apartment Do you presently have visiting nurse or other home services: No Alcohol intake: never Smoking Status: Current every day smoker Tobacco Type: Cigarette Packs Per Day: 0.25 Cigarettes Per Day: 4 Smoked in Last 30 Days: Yes Second Hand Smoke Exposure: No Use of substances other than those prescribed or required for medical reasons: No Substance Use Type: Marijuana Currently Displaying Signs/Symptoms of Drug Intoxication Withdrawal: No Have you been hit, kicked, punched, or otherwise hurt by someone within the past year? If so, by whom?: No Do you feel safe in your current relationship?: No Is there a partner from a previous relationship who is making you feel unsafe now?: No Are you made to feel afraid or neglected: No Spiritual Healthcare Practices: n/a Alevism Healthcare Practices: n/a Cultural Healthcare Practices: n/a Are you DNR?: No Advance Directives: Yes Advance Directives on File: Yes Advance Directives Date on File: 02/04/21 Do you have thoughts of harming others: None Do you have a plan to hurt others: No Plan Recently lost weight without trying: No Eating poorly because of decreased appetite: No Poor oral hygiene: No service: No Current occupational status: unemployed Meds Allergies Allergy/AdvReac Type Severity Reaction Status Date / Time No Known Allergies Allergy Verified 03/27/21 00:22 [No Known Allergies*] Active Medications: Current Medications Generic Name Dose Route Start Last Admin Trade Name Freq PRN Reason Stop Dose Admin Amlodipine Besylate 5 mg 03/29/21 09:00 04/02/21 08:08 Amlodipine Besylate 5 Mg Tablet PO 5 mg DAILY CELSO Administration Protocol Aspirin 81 mg 03/28/21 21:00 04/02/21 21:01 Aspirin Enteric Coated 81 Mg Tablet. PO 81 mg BEDTIME CELSO Administration Atorvastatin Calcium 80 mg 03/29/21 09:00 04/02/21 08:07 Atorvastatin Calcium 80 Mg Tablet PO 80 mg DAILY CELSO Administration Fentanyl 25 mcg 03/30/21 11:09 Fentanyl Citrate/Pf 100 Mcg/2 Ml Vial IVPUSH Q5M PRN Pain, Moderate (Pain Scale 4-6 Hydromorphone HCl 0.25 mg 03/30/21 11:09 03/31/21 00:51 Hydromorphone Hcl 0.5 Mg/0.5 Ml Syringe IVPUSH 0.25 mg Q5M PRN Administration Pain, Severe (Pain Scale 7-10) Clindamycin Phosphate 600 mg in 50 mls @ 100 mls/hr 03/29/21 12:00 04/03/21 04:27 Cleocin IV Infused Q8H CELSO Infusion Levofloxacin 500 mg in 100 mls @ 100 mls/hr 03/29/21 12:00 04/02/21 11:53 Levaquin IV Infused Q24H CELSO Infusion Insulin Glargine 45 unit 04/01/21 21:00 04/01/21 21:21 Insulin Glargine,Hum.Rec.Anlog 100 Unit/Ml 10 Ml Vial SUBCUT 45 unit BEDTIME CELSO Administration Insulin Human Lispro 0 unit 03/28/21 21:00 04/02/21 21:02 Insulin Lispro 100 Unit/Ml 3 Ml Vial SUBCUT 2 unit QIDACHS CELSO Administration Protocol Lisinopril 40 mg 03/29/21 09:00 04/02/21 08:08 Lisinopril 40 Mg Tablet PO 40 mg DAILY CELSO Administration Protocol Metoprolol Succinate 50 mg 03/29/21 09:00 04/02/21 08:08 Metoprolol Succinate Er 50 Mg Tab.Er.24h PO 50 mg DAILY CELSO Administration Protocol Omeprazole 20 mg 03/29/21 06:30 04/03/21 04:43 Omeprazole 20 Mg Capsule. PO Not Given DAILY@0630 ON LICENSE OF [facility] Ondansetron HCl 4 mg 03/30/21 11:09 Ondansetron Hcl 4 Mg/2 Ml Vial IVPUSH ONCE PRN Nausea and Vomiting Oxycodone HCl 10 mg 03/31/21 18:32 04/02/21 16:35 Oxycodone Hcl Immed Release 5 Mg Tablet PO 10 mg Q6H PRN Administration Pain, Severe (Pain Scale 7-10) Pharmacy Consult 1 each 03/28/21 16:25 Consult Rx Perform Med Rec MISCELLANE ONCE PRN Consult order Polyethylene Glycol 17 gm 04/01/21 10:05 04/02/21 10:08 Polyethylene Glycol 3350 17 Gm Powd.Pack PO 17 gm DAILY CELSO Administration Sodium Chloride 3 ml 03/29/21 00:00 04/03/21 03:43 0.9 % Sodium Chloride Flush 3 Ml Syringe IVFLUSH 3 ml QSHIFT CELSO Administration Ticagrelor 90 mg 03/28/21 21:00 04/02/21 21:03 Ticagrelor 90 Mg Tablet PO 90 mg BID CELSO Administration Home Medications Medication Instructions Recorded Confirmed Last Taken Type Lantus Solostar U-100 Insulin 42 unit SUBCUT BEDTIME 10/03/20 03/28/21 10/02/20 History metformin 1,000 mg BID 10/03/20 03/28/21 10/02/20 History omeprazole 20 mg DAILY 10/03/20 03/28/21 10/02/20 History amlodipine 1 tab PO QAM 02/01/21 03/28/21 Unknown History lisinopril 40 mg PO DAILY 02/01/21 03/28/21 Unknown History morphine 1 tab PO Q12H 02/01/21 03/28/21 Unknown History oxycodone-acetaminophen 1 tab PO Q8H PRN 02/01/21 03/28/21 Unknown History atorvastatin 80 mg tablet 80 mg PO BEDTIME 02/18/21 03/28/21 Unknown History ticagrelor 90 mg tablet 90 mg PO BID 02/18/21 03/28/21 Unknown History omega-3 fatty acids-fish oil [Fish 1 cap PO TID 03/28/21 03/28/21 Unknown History Oil] Exam Exam Date and Time: April 03, 2021 0724 Height,Weight and Vital Signs: Height 5 ft 11 in Weight 95.254 kg Last Vital Signs Temp 97.2 F 04/03/21 07:20 Pulse 89 04/03/21 07:20 Resp 18 04/03/21 07:20 BP 115/79 04/03/21 07:20 Pulse Ox 98 04/03/21 07:20 Pertinent Lab Results Pertinent Lab Results: Laboratory Tests 03/28/21 03/28/21 03/28/21 11:58 11:58 11:58 WBC 9.8 RBC 4.32 L Hgb 12.0 L Hct 36.6 L MCV 84.7 MCH 27.8 MCHC 32.8 RDW 14.6 Plt Count 310 MPV 8.7 L Immature Gran % (Auto) 0.7 H Neut % (Auto) 64.8 Lymph % (Auto) 24.7 [place] % (Auto) 7.3 Eos % (Auto) 2.1 Baso % (Auto) 0.4 Lymph # (Auto) 2.4 [place] # (Auto) 0.7 Eos # (Auto) 0.2 Baso # (Auto) 0.0 Abs Immat Gran (auto) 0.07 H Absolute Neuts (auto) 6.4 Absolute Nucleated RBC 0.000 Nucleated RBC % (auto) 0.0 ESR PT INR APTT Sodium 140 Potassium 3.7 Chloride 103 Carbon Dioxide 26 Anion Gap 15 BUN 10 Creatinine 0.80 Estim Creat Clear Calc 114.2 Estimated GFR > 60 POC Glucose Random Glucose 165 H D Fasting Glucose Lactic Acid 2.7 H* Lactic Acid Fup @ 2Hr Lactic Acid Fup @ 4Hr Calcium 9.2 Total Bilirubin 1.6 H AST 17 ALT 25 Alkaline Phosphatase 67 C-Reactive Protein 5.72 H Total Protein 6.9 Albumin 4.0 Vancomycin Trough COVID-19 (MJ) COVID-19 Clin Com 03/28/21 03/28/21 03/28/21 11:58 11:58 14:07 WBC RBC Hgb Hct MCV MCH MCHC RDW Plt Count MPV Immature Gran % (Auto) Neut % (Auto) Lymph % (Auto) [place] % (Auto) Eos % (Auto) Baso % (Auto) Lymph # (Auto) [place] # (Auto) Eos # (Auto) Baso # (Auto) Abs Immat Gran (auto) Absolute Neuts (auto) Absolute Nucleated RBC Nucleated RBC % (auto) ESR 48 H PT 12.1 INR 1.0 APTT 36.3 Sodium Potassium Chloride Carbon Dioxide Anion Gap BUN Creatinine Estim Creat Clear Calc Estimated GFR POC Glucose Random Glucose Fasting Glucose Lactic Acid Lactic Acid Fup @ 2Hr 3.2 H* Lactic Acid Fup @ 4Hr Calcium Total Bilirubin AST ALT Alkaline Phosphatase C-Reactive Protein Total Protein Albumin Vancomycin Trough COVID-19 (MJ) COVID-19 Clin Com 03/28/21 03/28/21 03/28/21 17:00 17:00 21:15 WBC RBC Hgb Hct MCV MCH MCHC RDW Plt Count MPV Immature Gran % (Auto) Neut % (Auto) Lymph % (Auto) [place] % (Auto) Eos % (Auto) Baso % (Auto) Lymph # (Auto) [place] # (Auto) Eos # (Auto) Baso # (Auto) Abs Immat Gran (auto) Absolute Neuts (auto) Absolute Nucleated RBC Nucleated RBC % (auto) ESR PT INR APTT Sodium Potassium Chloride Carbon Dioxide Anion Gap BUN Creatinine Estim Creat Clear Calc Estimated GFR POC Glucose 156 H Random Glucose Fasting Glucose Lactic Acid Lactic Acid Fup @ 2Hr Lactic Acid Fup @ 4Hr 2.0 Calcium Total Bilirubin AST ALT Alkaline Phosphatase C-Reactive Protein Total Protein Albumin Vancomycin Trough COVID-19 (MJ) Negative COVID-19 Clin Com See Note 03/29/21 03/29/21 03/29/21 05:39 05:39 07:33 WBC 8.0 RBC 3.98 L Hgb 11.0 L Hct 33.7 L MCV 84.7 MCH 27.6 MCHC 32.6 RDW 14.5 Plt Count 300 MPV 8.9 L Immature Gran % (Auto) 0.5 H Neut % (Auto) 54.7 Lymph % (Auto) 33.2 [place] % (Auto) 7.8 Eos % (Auto) 3.3 Baso % (Auto) 0.5 Lymph # (Auto) 2.7 [place] # (Auto) 0.6 Eos # (Auto) 0.3 Baso # (Auto) 0.0 Abs Immat Gran (auto) 0.04 H Absolute Neuts (auto) 4.4 Absolute Nucleated RBC 0.000 Nucleated RBC % (auto) 0.0 ESR PT INR APTT Sodium 141 Potassium 3.8 Chloride 107 Carbon Dioxide 27 Anion Gap 11 L BUN 10 Creatinine 0.82 Estim Creat Clear Calc 111.4 Estimated GFR > 60 POC Glucose 148 H Random Glucose 166 H Fasting Glucose Lactic Acid Lactic Acid Fup @ 2Hr Lactic Acid Fup @ 4Hr Calcium 8.5 D Total Bilirubin AST ALT Alkaline Phosphatase C-Reactive Protein Total Protein Albumin Vancomycin Trough COVID-19 (MJ) COVID-19 [employer] 03/29/21 03/29/21 03/29/21 11:16 16:09 20:52 WBC RBC Hgb Hct MCV MCH MCHC RDW Plt Count MPV Immature Gran % (Auto) Neut % (Auto) Lymph % (Auto) [place] % (Auto) Eos % (Auto) Baso % (Auto) Lymph # (Auto) [place] # (Auto) Eos # (Auto) Baso # (Auto) Abs Immat Gran (auto) Absolute Neuts (auto) Absolute Nucleated RBC Nucleated RBC % (auto) ESR PT INR APTT Sodium Potassium Chloride Carbon Dioxide Anion Gap BUN Creatinine Estim Creat Clear Calc Estimated GFR POC Glucose 165 H 143 H 156 H Random Glucose Fasting Glucose Lactic Acid Lactic Acid Fup @ 2Hr Lactic Acid Fup @ 4Hr Calcium Total Bilirubin AST ALT Alkaline Phosphatase C-Reactive Protein Total Protein Albumin Vancomycin Trough COVID-19 (MJ) [employer] 03/30/21 03/30/21 03/30/21 07:20 12:38 15:35 WBC RBC Hgb Hct MCV MCH MCHC RDW Plt Count MPV Immature Gran % (Auto) Neut % (Auto) Lymph % (Auto) [place] % (Auto) Eos % (Auto) Baso % (Auto) Lymph # (Auto) [place] # (Auto) Eos # (Auto) Baso # (Auto) Abs Immat Gran (auto) Absolute Neuts (auto) Absolute Nucleated RBC Nucleated RBC % (auto) ESR PT INR APTT Sodium Potassium Chloride Carbon Dioxide Anion Gap BUN Creatinine Estim Creat Clear Calc Estimated GFR POC Glucose 155 H 152 H Random Glucose Fasting Glucose Lactic Acid Lactic Acid Fup @ 2Hr Lactic Acid Fup @ 4Hr Calcium Total Bilirubin AST ALT Alkaline Phosphatase C-Reactive Protein Total Protein Albumin Vancomycin Trough < 3.0 L COVID-19 (MJ) COVID-19 [employer] 03/30/21 03/30/21 03/31/21 16:29 20:17 04:43 WBC 10.9 H RBC 4.29 L Hgb 12.0 L Hct 36.3 L MCV 84.6 MCH 28.0 MCHC 33.1 RDW 14.4 Plt Count 335 MPV 8.8 L Immature Gran % (Auto) Neut % (Auto) Lymph % (Auto) [place] % (Auto) Eos % (Auto) Baso % (Auto) Lymph # (Auto) [place] # (Auto) Eos # (Auto) Baso # (Auto) Abs Immat Gran (auto) Absolute Neuts (auto) Absolute Nucleated RBC 0.000 Nucleated RBC % (auto) 0.0 ESR PT INR APTT Sodium Potassium Chloride Carbon Dioxide Anion Gap BUN Creatinine Estim Creat Clear Calc Estimated GFR POC Glucose 183 H 213 H Random Glucose Fasting Glucose Lactic Acid Lactic Acid Fup @ 2Hr Lactic Acid Fup @ 4Hr Calcium Total Bilirubin AST ALT Alkaline Phosphatase C-Reactive Protein Total Protein Albumin Vancomycin Trough COVID-19 (MJ) [employer] 03/31/21 03/31/21 03/31/21 04:43 07:23 11:28 WBC RBC Hgb Hct MCV MCH MCHC RDW Plt Count MPV Immature Gran % (Auto) Neut % (Auto) Lymph % (Auto) [place] % (Auto) Eos % (Auto) Baso % (Auto) Lymph # (Auto) [place] # (Auto) Eos # (Auto) Baso # (Auto) Abs Immat Gran (auto) Absolute Neuts (auto) Absolute Nucleated RBC Nucleated RBC % (auto) ESR PT INR APTT Sodium 138 Potassium 4.1 Chloride 103 Carbon Dioxide 27 Anion Gap 12 BUN 12 Creatinine 0.88 Estim Creat Clear Calc 103.8 Estimated GFR > 60 POC Glucose 186 H 219 H Random Glucose Fasting Glucose 194 H Lactic Acid Lactic Acid Fup @ 2Hr Lactic Acid Fup @ 4Hr Calcium 9.2 D Total Bilirubin AST ALT Alkaline Phosphatase C-Reactive Protein 3.28 H Total Protein Albumin Vancomycin Trough COVID-19 (MJ) [employer] 03/31/21 03/31/21 04/01/21 16:24 20:03 07:11 WBC RBC Hgb Hct MCV MCH MCHC RDW Plt Count MPV Immature Gran % (Auto) Neut % (Auto) Lymph % (Auto) [place] % (Auto) Eos % (Auto) Baso % (Auto) Lymph # (Auto) [place] # (Auto) Eos # (Auto) Baso # (Auto) Abs Immat Gran (auto) Absolute Neuts (auto) Absolute Nucleated RBC Nucleated RBC % (auto) ESR PT INR APTT Sodium Potassium Chloride Carbon Dioxide Anion Gap BUN Creatinine Estim Creat Clear Calc Estimated GFR POC Glucose 233 H 280 H 136 H Random Glucose Fasting Glucose Lactic Acid Lactic Acid Fup @ 2Hr Lactic Acid Fup @ 4Hr Calcium Total Bilirubin AST ALT Alkaline Phosphatase C-Reactive Protein Total Protein Albumin Vancomycin Trough COVID-19 (MJ) COVID-19 [employer] 04/01/21 04/01/21 04/01/21 08:57 11:36 16:24 WBC RBC Hgb 12.6 L Hct 39.5 L MCV MCH MCHC RDW Plt Count MPV Immature Gran % (Auto) Neut % (Auto) Lymph % (Auto) [place] % (Auto) Eos % (Auto) Baso % (Auto) Lymph # (Auto) [place] # (Auto) Eos # (Auto) Baso # (Auto) Abs Immat Gran (auto) Absolute Neuts (auto) Absolute Nucleated RBC Nucleated RBC % (auto) ESR PT INR APTT Sodium Potassium Chloride Carbon Dioxide Anion Gap BUN Creatinine Estim Creat Clear Calc Estimated GFR POC Glucose 185 H 190 H Random Glucose Fasting Glucose Lactic Acid Lactic Acid Fup @ 2Hr Lactic Acid Fup @ 4Hr Calcium Total Bilirubin AST ALT Alkaline Phosphatase C-Reactive Protein Total Protein Albumin Vancomycin Trough COVID-19 (MJ) COVID-19 [employer] 04/01/21 04/02/21 04/02/21 20:15 06:32 06:32 WBC 8.3 RBC 4.05 L Hgb 11.0 L Hct 34.1 L MCV 84.2 MCH 27.2 MCHC 32.3 RDW 14.3 Plt Count 336 MPV 9.1 L Immature Gran % (Auto) Neut % (Auto) Lymph % (Auto) [place] % (Auto) Eos % (Auto) Baso % (Auto) Lymph # (Auto) [place] # (Auto) Eos # (Auto) Baso # (Auto) Abs Immat Gran (auto) Absolute Neuts (auto) Absolute Nucleated RBC 0.000 Nucleated RBC % (auto) 0.0 ESR PT INR APTT Sodium Potassium Chloride Carbon Dioxide Anion Gap BUN Creatinine Estim Creat Clear Calc Estimated GFR POC Glucose 198 H Random Glucose Fasting Glucose Lactic Acid Lactic Acid Fup @ 2Hr Lactic Acid Fup @ 4Hr Calcium Total Bilirubin AST ALT Alkaline Phosphatase C-Reactive Protein 3.16 H Total Protein Albumin Vancomycin Trough COVID-19 (MJ) COVID-19 [employer] Com 04/02/21 04/02/21 04/02/21 07:33 11:27 12:56 WBC RBC Hgb Hct MCV MCH MCHC RDW Plt Count MPV Immature Gran % (Auto) Neut % (Auto) Lymph % (Auto) [place] % (Auto) Eos % (Auto) Baso % (Auto) Lymph # (Auto) [place] # (Auto) Eos # (Auto) Baso # (Auto) Abs Immat Gran (auto) Absolute Neuts (auto) Absolute Nucleated RBC Nucleated RBC % (auto) ESR PT INR APTT Sodium Potassium Chloride Carbon Dioxide Anion Gap BUN Creatinine Estim Creat Clear Calc Estimated GFR POC Glucose 177 H 197 H 202 H Random Glucose Fasting Glucose Lactic Acid Lactic Acid Fup @ 2Hr Lactic Acid Fup @ 4Hr Calcium Total Bilirubin AST ALT Alkaline Phosphatase C-Reactive Protein Total Protein Albumin Vancomycin Trough COVID-19 (MJ) [employer] 04/02/21 04/02/21 16:22 20:39 WBC RBC Hgb Hct MCV MCH MCHC RDW Plt Count MPV Immature Gran % (Auto) Neut % (Auto) Lymph % (Auto) [place] % (Auto) Eos % (Auto) Baso % (Auto) Lymph # (Auto) [place] # (Auto) Eos # (Auto) Baso # (Auto) Abs Immat Gran (auto) Absolute Neuts (auto) Absolute Nucleated RBC Nucleated RBC % (auto) ESR PT INR APTT Sodium Potassium Chloride Carbon Dioxide Anion Gap BUN Creatinine Estim Creat Clear Calc Estimated GFR POC Glucose 230 H 187 H Random Glucose Fasting Glucose Lactic Acid Lactic Acid Fup @ 2Hr Lactic Acid Fup @ 4Hr Calcium Total Bilirubin AST ALT Alkaline Phosphatase C-Reactive Protein Total Protein Albumin Vancomycin Trough COVID-19 (MJ) [employer]X
[2021-04-03] MEDS: Metoprolol Succinate ER 50 MG TAB.ER.24H PO (07:48)
[2021-04-03 08:04] LABS: Glucose, Whole Blood 174 mg/dL (60-115)
--- NOTE | 2021-04-03 08:45 | HO.ANESPROP2 ---
[facility] Active Problems Active Problems: All Active Problems (Updated 04/01/21 @ 12:35 by Gallito Fleming MD) Epidermal cyst (Acute) Abscess of hand, right (Acute) Cellulitis (Acute) Dog bite of extremity (Acute) Smoking (Acute) Atherosclerotic cardiovascular disease (Acute) HTN (hypertension) (Acute) Diabetes (Acute) Past Medical History Medical History Acute coronary syndrome Atherosclerotic cardiovascular disease Diabetes Epidermal cyst Essential hypertension HTN (hypertension) NSTEMI (non-ST elevated myocardial infarction) Smoking Type 2 diabetes mellitus with unspecified complications Family History Family History Father No problems noted. Mother Leukemia HTN (hypertension) Surgical History Surgical History History of cardiac cath (~03/2019) S/P cardiac cath Social History Social History Household Members: None Housing: Apartment Do you presently have visiting nurse or other home services: No Alcohol intake: never Smoking Status: Current every day smoker Tobacco Type: Cigarette Packs Per Day: 0.25 Cigarettes Per Day: 4 Smoked in Last 30 Days: Yes Second Hand Smoke Exposure: No Use of substances other than those prescribed or required for medical reasons: No Substance Use Type: Marijuana Currently Displaying Signs/Symptoms of Drug Intoxication Withdrawal: No Have you been hit, kicked, punched, or otherwise hurt by someone within the past year? If so, by whom?: No Do you feel safe in your current relationship?: No Is there a partner from a previous relationship who is making you feel unsafe now?: No Are you made to feel afraid or neglected: No Spiritual Healthcare Practices: n/a Latter-Day Healthcare Practices: n/a Cultural Healthcare Practices: n/a Are you DNR?: No Advance Directives: Yes Advance Directives Information Provided: No Advance Directives on File: Yes Advance Directives Date on File: 02/04/21 Do you have thoughts of harming others: None Do you have a plan to hurt others: No Plan Recently lost weight without trying: No Eating poorly because of decreased appetite: No Poor oral hygiene: No service: No Current occupational status: unemployed Meds Allergies Allergy/AdvReac Type Severity Reaction Status Date / Time No Known Allergies Allergy Verified 03/27/21 00:22 [No Known Allergies*] Active Medications: Current Medications Generic Name Dose Route Start Last Admin Trade Name Freq PRN Reason Stop Dose Admin Amlodipine Besylate 5 mg 03/29/21 09:00 04/02/21 08:08 Amlodipine Besylate 5 Mg Tablet PO 5 mg DAILY CELSO Administration Protocol Aspirin 81 mg 03/28/21 21:00 04/02/21 21:01 Aspirin Enteric Coated 81 Mg Tablet. PO 81 mg BEDTIME CELSO Administration Atorvastatin Calcium 80 mg 03/29/21 09:00 04/02/21 08:07 Atorvastatin Calcium 80 Mg Tablet PO 80 mg DAILY CELSO Administration Fentanyl 25 mcg 03/30/21 11:09 Fentanyl Citrate/Pf 100 Mcg/2 Ml Vial IVPUSH Q5M PRN Pain, Moderate (Pain Scale 4-6 Hydromorphone HCl 0.25 mg 03/30/21 11:09 03/31/21 00:51 Hydromorphone Hcl 0.5 Mg/0.5 Ml Syringe IVPUSH 0.25 mg Q5M PRN Administration Pain, Severe (Pain Scale 7-10) Clindamycin Phosphate 600 mg in 50 mls @ 100 mls/hr 03/29/21 12:00 04/03/21 04:27 Cleocin IV Infused Q8H CELSO Infusion Levofloxacin 500 mg in 100 mls @ 100 mls/hr 03/29/21 12:00 04/02/21 11:53 Levaquin IV Infused Q24H CELSO Infusion Insulin Glargine 45 unit 04/01/21 21:00 04/01/21 21:21 Insulin Glargine,Hum.Rec.Anlog 100 Unit/Ml 10 Ml Vial SUBCUT 45 unit BEDTIME CELSO Administration Insulin Human Lispro 0 unit 03/28/21 21:00 04/03/21 07:54 Insulin Lispro 100 Unit/Ml 3 Ml Vial SUBCUT Not Given QIDACHS [facility] Protocol Lisinopril 40 mg 03/29/21 09:00 04/02/21 08:08 Lisinopril 40 Mg Tablet PO 40 mg DAILY CELSO Administration Protocol Metoprolol Succinate 50 mg 03/29/21 09:00 04/03/21 07:48 Metoprolol Succinate Er 50 Mg Tab.Er.24h PO 50 mg DAILY CELSO Administration Protocol Omeprazole 20 mg 03/29/21 06:30 04/03/21 04:43 Omeprazole 20 Mg Capsule. PO Not Given DAILY@0630 CELSO Ondansetron HCl 4 mg 03/30/21 11:09 Ondansetron Hcl 4 Mg/2 Ml Vial IVPUSH ONCE PRN Nausea and Vomiting Oxycodone HCl 10 mg 03/31/21 18:32 04/02/21 16:35 Oxycodone Hcl Immed Release 5 Mg Tablet PO 10 mg Q6H PRN Administration Pain, Severe (Pain Scale 7-10) Pharmacy Consult 1 each 03/28/21 16:25 Consult Rx Perform Med Rec MISCELLANE ONCE PRN Consult order Polyethylene Glycol 17 gm 04/01/21 10:05 04/02/21 10:08 Polyethylene Glycol 3350 17 Gm Powd.Pack PO 17 gm DAILY CELSO Administration Sodium Chloride 3 ml 03/29/21 00:00 04/03/21 07:51 0.9 % Sodium Chloride Flush 3 Ml Syringe IVFLUSH 3 ml QSHIFT CELSO Administration Ticagrelor 90 mg 03/28/21 21:00 04/02/21 21:03 Ticagrelor 90 Mg Tablet PO 90 mg BID CELSO Administration Home Medications Medication Instructions Recorded Confirmed Last Taken Type Lantus Solostar U-100 Insulin 42 unit SUBCUT BEDTIME 10/03/20 03/28/21 10/02/20 History metformin 1,000 mg BID 10/03/20 03/28/21 10/02/20 History omeprazole 20 mg DAILY 10/03/20 03/28/21 10/02/20 History amlodipine 1 tab PO QAM 02/01/21 03/28/21 Unknown History lisinopril 40 mg PO DAILY 02/01/21 03/28/21 Unknown History morphine 1 tab PO Q12H 02/01/21 03/28/21 Unknown History oxycodone-acetaminophen 1 tab PO Q8H PRN 02/01/21 03/28/21 Unknown History atorvastatin 80 mg tablet 80 mg PO BEDTIME 02/18/21 03/28/21 Unknown History ticagrelor 90 mg tablet 90 mg PO BID 02/18/21 03/28/21 Unknown History omega-3 fatty acids-fish oil [Fish 1 cap PO TID 03/28/21 03/28/21 Unknown History Oil] Exam Exam Date and Time: April 03, 2021 0845 Height,Weight and Vital Signs: Height 5 ft 11 in Weight 95.254 kg Last Vital Signs Temp 97.7 F 04/03/21 08:08 Pulse 87 04/03/21 08:08 Resp 16 04/03/21 08:08 BP 141/87 H 04/03/21 08:08 Pulse Ox 97 04/03/21 08:08 Pertinent Lab Results Pertinent Lab Results: Laboratory Tests 03/28/21 03/28/21 03/28/21 11:58 11:58 11:58 WBC 9.8 RBC 4.32 L Hgb 12.0 L Hct 36.6 L MCV 84.7 MCH 27.8 MCHC 32.8 RDW 14.6 Plt Count 310 MPV 8.7 L Immature Gran % (Auto) 0.7 H Neut % (Auto) 64.8 Lymph % (Auto) 24.7 Garfield % (Auto) 7.3 Eos % (Auto) 2.1 Baso % (Auto) 0.4 Lymph # (Auto) 2.4 Garfield # (Auto) 0.7 Eos # (Auto) 0.2 Baso # (Auto) 0.0 Abs Immat Gran (auto) 0.07 H Absolute Neuts (auto) 6.4 Absolute Nucleated RBC 0.000 Nucleated RBC % (auto) 0.0 ESR PT INR APTT Sodium 140 Potassium 3.7 Chloride 103 Carbon Dioxide 26 Anion Gap 15 BUN 10 Creatinine 0.80 Estim Creat Clear Calc 114.2 Estimated GFR > 60 POC Glucose Random Glucose 165 H D Fasting Glucose Lactic Acid 2.7 H* Lactic Acid Fup @ 2Hr Lactic Acid Fup @ 4Hr Calcium 9.2 Total Bilirubin 1.6 H AST 17 ALT 25 Alkaline Phosphatase 67 C-Reactive Protein 5.72 H Total Protein 6.9 Albumin 4.0 Vancomycin Trough COVID-19 (MJ) COVID-19 Clin Com 03/28/21 03/28/21 03/28/21 11:58 11:58 14:07 WBC RBC Hgb Hct MCV MCH MCHC RDW Plt Count MPV Immature Gran % (Auto) Neut % (Auto) Lymph % (Auto) Garfield % (Auto) Eos % (Auto) Baso % (Auto) Lymph # (Auto) Garfield # (Auto) Eos # (Auto) Baso # (Auto) Abs Immat Gran (auto) Absolute Neuts (auto) Absolute Nucleated RBC Nucleated RBC % (auto) ESR 48 H PT 12.1 INR 1.0 APTT 36.3 Sodium Potassium Chloride Carbon Dioxide Anion Gap BUN Creatinine Estim Creat Clear Calc Estimated GFR POC Glucose Random Glucose Fasting Glucose Lactic Acid Lactic Acid Fup @ 2Hr 3.2 H* Lactic Acid Fup @ 4Hr Calcium Total Bilirubin AST ALT Alkaline Phosphatase C-Reactive Protein Total Protein Albumin Vancomycin Trough COVID-19 (MJ) COVID-19 Clin Com 03/28/21 03/28/21 03/28/21 17:00 17:00 21:15 WBC RBC Hgb Hct MCV MCH MCHC RDW Plt Count MPV Immature Gran % (Auto) Neut % (Auto) Lymph % (Auto) Garfield % (Auto) Eos % (Auto) Baso % (Auto) Lymph # (Auto) Garfield # (Auto) Eos # (Auto) Baso # (Auto) Abs Immat Gran (auto) Absolute Neuts (auto) Absolute Nucleated RBC Nucleated RBC % (auto) ESR PT INR APTT Sodium Potassium Chloride Carbon Dioxide Anion Gap BUN Creatinine Estim Creat Clear Calc Estimated GFR POC Glucose 156 H Random Glucose Fasting Glucose Lactic Acid Lactic Acid Fup @ 2Hr Lactic Acid Fup @ 4Hr 2.0 Calcium Total Bilirubin AST ALT Alkaline Phosphatase C-Reactive Protein Total Protein Albumin Vancomycin Trough COVID-19 (MJ) Negative COVID-19 Mobile Ads See Note 03/29/21 03/29/21 03/29/21 05:39 05:39 07:33 WBC 8.0 RBC 3.98 L Hgb 11.0 L Hct 33.7 L MCV 84.7 MCH 27.6 MCHC 32.6 RDW 14.5 Plt Count 300 MPV 8.9 L Immature Gran % (Auto) 0.5 H Neut % (Auto) 54.7 Lymph % (Auto) 33.2 Garfield % (Auto) 7.8 Eos % (Auto) 3.3 Baso % (Auto) 0.5 Lymph # (Auto) 2.7 Garfield # (Auto) 0.6 Eos # (Auto) 0.3 Baso # (Auto) 0.0 Abs Immat Gran (auto) 0.04 H Absolute Neuts (auto) 4.4 Absolute Nucleated RBC 0.000 Nucleated RBC % (auto) 0.0 ESR PT INR APTT Sodium 141 Potassium 3.8 Chloride 107 Carbon Dioxide 27 Anion Gap 11 L BUN 10 Creatinine 0.82 Estim Creat Clear Calc 111.4 Estimated GFR > 60 POC Glucose 148 H Random Glucose 166 H Fasting Glucose Lactic Acid Lactic Acid Fup @ 2Hr Lactic Acid Fup @ 4Hr Calcium 8.5 D Total Bilirubin AST ALT Alkaline Phosphatase C-Reactive Protein Total Protein Albumin Vancomycin Trough COVID-19 (MJ) COVID-19 Mobile Ads 03/29/21 03/29/21 03/29/21 11:16 16:09 20:52 WBC RBC Hgb Hct MCV MCH MCHC RDW Plt Count MPV Immature Gran % (Auto) Neut % (Auto) Lymph % (Auto) Garfield % (Auto) Eos % (Auto) Baso % (Auto) Lymph # (Auto) Garfield # (Auto) Eos # (Auto) Baso # (Auto) Abs Immat Gran (auto) Absolute Neuts (auto) Absolute Nucleated RBC Nucleated RBC % (auto) ESR PT INR APTT Sodium Potassium Chloride Carbon Dioxide Anion Gap BUN Creatinine Estim Creat Clear Calc Estimated GFR POC Glucose 165 H 143 H 156 H Random Glucose Fasting Glucose Lactic Acid Lactic Acid Fup @ 2Hr Lactic Acid Fup @ 4Hr Calcium Total Bilirubin AST ALT Alkaline Phosphatase C-Reactive Protein Total Protein Albumin Vancomycin Trough COVID-19 (MJ) [employer] 03/30/21 03/30/21 03/30/21 07:20 12:38 15:35 WBC RBC Hgb Hct MCV MCH MCHC RDW Plt Count MPV Immature Gran % (Auto) Neut % (Auto) Lymph % (Auto) Garfield % (Auto) Eos % (Auto) Baso % (Auto) Lymph # (Auto) Garfield # (Auto) Eos # (Auto) Baso # (Auto) Abs Immat Gran (auto) Absolute Neuts (auto) Absolute Nucleated RBC Nucleated RBC % (auto) ESR PT INR APTT Sodium Potassium Chloride Carbon Dioxide Anion Gap BUN Creatinine Estim Creat Clear Calc Estimated GFR POC Glucose 155 H 152 H Random Glucose Fasting Glucose Lactic Acid Lactic Acid Fup @ 2Hr Lactic Acid Fup @ 4Hr Calcium Total Bilirubin AST ALT Alkaline Phosphatase C-Reactive Protein Total Protein Albumin Vancomycin Trough < 3.0 L COVID-19 (MJ) [employer] 03/30/21 03/30/2103/31/21 16:29 20:17 04:43 WBC 10.9 H RBC 4.29 L Hgb 12.0 L Hct 36.3 L MCV 84.6 MCH 28.0 MCHC 33.1 RDW 14.4 Plt Count 335 MPV 8.8 L Immature Gran % (Auto) Neut % (Auto) Lymph % (Auto) Garfield % (Auto) Eos % (Auto) Baso % (Auto) Lymph # (Auto) Garfield # (Auto) Eos # (Auto) Baso # (Auto) Abs Immat Gran (auto) Absolute Neuts (auto) Absolute Nucleated RBC 0.000 Nucleated RBC % (auto) 0.0 ESR PT INR APTT Sodium Potassium Chloride Carbon Dioxide Anion Gap BUN Creatinine Estim Creat Clear Calc Estimated GFR POC Glucose 183 H 213 H Random Glucose Fasting Glucose Lactic Acid Lactic Acid Fup @ 2Hr Lactic Acid Fup @ 4Hr Calcium Total Bilirubin AST ALT Alkaline Phosphatase C-Reactive Protein Total Protein Albumin Vancomycin Trough COVID-19 (MJ) COVID-19 Mobile Ads 03/31/21 03/31/21 03/31/21 04:43 07:23 11:28 WBC RBC Hgb Hct MCV MCH MCHC RDW Plt Count MPV Immature Gran % (Auto) Neut % (Auto) Lymph % (Auto) Garfield % (Auto) Eos % (Auto) Baso % (Auto) Lymph # (Auto) Garfield # (Auto) Eos # (Auto) Baso # (Auto) Abs Immat Gran (auto) Absolute Neuts (auto) Absolute Nucleated RBC Nucleated RBC % (auto) ESR PT INR APTT Sodium 138 Potassium 4.1 Chloride 103 Carbon Dioxide 27 Anion Gap 12 BUN 12 Creatinine 0.88 Estim Creat Clear Calc 103.8 Estimated GFR > 60 POC Glucose 186 H 219 H Random Glucose Fasting Glucose 194 H Lactic Acid Lactic Acid Fup @ 2Hr Lactic Acid Fup @ 4Hr Calcium 9.2 D Total Bilirubin AST ALT Alkaline Phosphatase C-Reactive Protein 3.28 H Total Protein Albumin Vancomycin Trough COVID-19 (MJ) COVID-19 Mobile Ads 03/31/21 03/31/21 04/01/21 16:24 20:03 07:11 WBC RBC Hgb Hct MCV MCH MCHC RDW Plt Count MPV Immature Gran % (Auto) Neut % (Auto) Lymph % (Auto) Garfield % (Auto) Eos % (Auto) Baso % (Auto) Lymph # (Auto) Garfield # (Auto) Eos # (Auto) Baso # (Auto) Abs Immat Gran (auto) Absolute Neuts (auto) Absolute Nucleated RBC Nucleated RBC % (auto) ESR PT INR APTT Sodium Potassium Chloride Carbon Dioxide Anion Gap BUN Creatinine Estim Creat Clear Calc Estimated GFR POC Glucose 233 H 280 H 136 H Random Glucose Fasting Glucose Lactic Acid Lactic Acid Fup @ 2Hr Lactic Acid Fup @ 4Hr Calcium Total Bilirubin AST ALT Alkaline Phosphatase C-Reactive Protein Total Protein Albumin Vancomycin Trough COVID-19 (MJ) COVID-19 Mobile Ads 04/01/21 04/01/21 04/01/21 08:57 11:36 16:24 WBC RBC Hgb 12.6 L Hct 39.5 L MCV MCH MCHC RDW Plt Count MPV Immature Gran % (Auto) Neut % (Auto) Lymph % (Auto) Garfield % (Auto) Eos % (Auto) Baso % (Auto) Lymph # (Auto) Garfield # (Auto) Eos # (Auto) Baso # (Auto) Abs Immat Gran (auto) Absolute Neuts (auto) Absolute Nucleated RBC Nucleated RBC % (auto) ESR PT INR APTT Sodium Potassium Chloride Carbon Dioxide Anion Gap BUN Creatinine Estim Creat Clear Calc Estimated GFR POC Glucose 185 H 190 H Random Glucose Fasting Glucose Lactic Acid Lactic Acid Fup @ 2Hr Lactic Acid Fup @ 4Hr Calcium Total Bilirubin AST ALT Alkaline Phosphatase C-Reactive Protein Total Protein Albumin Vancomycin Trough COVID-19 (MJ) COVID-19 Mobile Ads 04/01/21 04/02/21 04/02/21 20:15 06:32 06:32 WBC 8.3 RBC 4.05 L Hgb 11.0 L Hct 34.1 L MCV 84.2 MCH 27.2 MCHC 32.3 RDW 14.3 Plt Count 336 MPV 9.1 L Immature Gran % (Auto) Neut % (Auto) Lymph % (Auto) Garfield % (Auto) Eos % (Auto) Baso % (Auto) Lymph # (Auto) Garfield # (Auto) Eos # (Auto) Baso # (Auto) Abs Immat Gran (auto) Absolute Neuts (auto) Absolute Nucleated RBC 0.000 Nucleated RBC % (auto) 0.0 ESR PT INR APTT Sodium Potassium Chloride Carbon Dioxide Anion Gap BUN Creatinine Estim Creat Clear Calc Estimated GFR POC Glucose 198 H Random Glucose Fasting Glucose Lactic Acid Lactic Acid Fup @ 2Hr Lactic Acid Fup @ 4Hr Calcium Total Bilirubin AST ALT Alkaline Phosphatase C-Reactive Protein 3.16 H Total Protein Albumin Vancomycin Trough COVID-19 (MJ) COVID-19 [employer] Com 04/02/21 04/02/21 04/02/21 07:33 11:27 12:56 WBC RBC Hgb Hct MCV MCH MCHC RDW Plt Count MPV Immature Gran % (Auto) Neut % (Auto) Lymph % (Auto) Garfield % (Auto) Eos % (Auto) Baso % (Auto) Lymph # (Auto) Garfield # (Auto) Eos # (Auto) Baso # (Auto) Abs Immat Gran (auto) Absolute Neuts (auto) Absolute Nucleated RBC Nucleated RBC % (auto) ESR PT INR APTT Sodium Potassium Chloride Carbon Dioxide Anion Gap BUN Creatinine Estim Creat Clear Calc Estimated GFR POC Glucose 177 H 197 H 202 H Random Glucose Fasting Glucose Lactic Acid Lactic Acid Fup @ 2Hr Lactic Acid Fup @ 4Hr Calcium Total Bilirubin AST ALT Alkaline Phosphatase C-Reactive Protein Total Protein Albumin Vancomycin Trough COVID-19 (MJ) [employer] 04/02/21 04/02/21 04/03/21 16:22 20:39 07:18 WBC RBC Hgb Hct MCV MCH MCHC RDW Plt Count MPV Immature Gran % (Auto) Neut % (Auto) Lymph % (Auto) Garfield % (Auto) Eos % (Auto) Baso % (Auto) Lymph # (Auto) Garfield # (Auto) Eos # (Auto) Baso # (Auto) Abs Immat Gran (auto) Absolute Neuts (auto) Absolute Nucleated RBC Nucleated RBC % (auto) ESR PT INR APTT Sodium Potassium Chloride Carbon Dioxide Anion Gap BUN Creatinine Estim Creat Clear Calc Estimated GFR POC Glucose 230 H 187 H 174 H Random Glucose Fasting Glucose Lactic Acid Lactic Acid Fup @ 2Hr Lactic Acid Fup @ 4Hr Calcium Total Bilirubin AST ALT Alkaline Phosphatase C-Reactive Protein Total Protein Albumin Vancomycin Trough COVID-19 (MJ) COVID-19 Mobile [employer] Mallampati Class: II TM Dist: >3cm Neck ROM: Full Loose/Missing/Broken Teeth: Yes, Upper and Lower Heart: RRR Lungs: CTA
--- NOTE | 2021-04-03 09:59 | W.PM.OPN ---
Operative Note Operative Note Date of Service: 04/03/21 Narrative: Operative Note Narrative: Preop diagnosis: 1. Right thenar hematoma 2. Right dorsal wrist abscess Postop diagnosis: Same Procedure: 1. Evacuation of right thenar hematoma, I&D 2. Right dorsal wrist and extensor tendons I&D Surgeon: Barb Neville MD Anesthesia: Mac plus regional block Findings: Thenar hematoma, no gross purulence found about extensor tendons Drains: Iodoform gauze drains 1 in the thenar mass, and the other in the dorsal wrist wound Tourniquet time: None EBL: 5.0 ml Specimen: None Drains: None Complications: None Disposition: Brought to the recovery room in stable condition Plan: Readmit to floor, continue IV antibiotics Start hand therapy for active and passive hand range of motion Remove drains x2 tomorrow Clinic follow-up within 3-5 days of discharge Indications: The patient is a 53 year old man on blood thinners who is bitten by a dog last week. He is status post an I&D of his right thenar space and dorsal wrist wound to include dorsal extensor tendons on Wednesday03/30/2021. He has had some slow persistent bleeding because of the anticoagulants. Return to OR today for evacuation of thenar hematoma and repeat I and D of dorsal wrist wound and extensor tendons . The risks and benefits of operative treatment, including but not limited to risk of damage to blood vessels, nerves, tendons, infection, recurrence, persistent pain or numbness, incomplete resolution of preoperative symptoms, or need for further surgery were discussed with the patient and they wished to proceed with surgery. Procedure: Once consent was obtained patient was brought back to the operating suite and placed in the operating table in a supine position. . Anesthesia was administered by the anesthesia team. A tourniquet was applied to the proximal aspect of the right upper extremity and the limb was prepped and draped in a standard surgical fashion. The tourniquet was not inflated. The sutures were removed from the thenar mass and the wound opened with a hemostat. The thenar hematoma was evacuated and the wound copiously irrigated with normal saline. There was no gross purulence. The thenar mass was soft after evacuation of the hematoma. Hemostasis was obtained with a brief period of local pressure and some bipolar electrocautery. Skin edges were then reapproximated with some 5 0 nylon suture material. To allow for drainage we placed a single iodoform gauze strip . Attention was then turned to the dorsal aspect of the patient's right wrist. Again sutures were removed. Blunt dissection was easily performed using a hemostat down to the extensor tendons of the 4th dorsal compartment. No gross purulence was visualized. The extensor tendons and the wound in general was copiously irrigated with normal saline. Hemostasis was obtained with a brief period of local pressure and some bipolar electrocautery. The skin edges were loosely reapproximated with some 5 0 nylon suture material, and a single strip of iodoform gauze was placed to allow for any necessary drainage. The wounds were infiltrated with some 1% lidocaine with epinephrine for postop pain control and a sterile dressing was applied. The patient appears to have tolerated the procedure well and with no complications. All digits were well vascularized conclusion of the case.
[2021-04-03] MEDS: fentaNYL citrate/PF 100 MCG/2 ML VIAL 25 MCG IVPUSH ×4 (11:18→11:33)
[2021-04-03 12:17] LABS: Glucose, Whole Blood 178 mg/dL (60-115)
[2021-04-03] MEDS: amLODIPine Besylate 5 MG TABLET PO (12:31)
[2021-04-03] MEDS: oxyCODONE HCl Immed Release 5 MG TABLET 10 MG PO ×2 (12:31→19:40)
[2021-04-03] MEDS: lisinopriL 40 MG TABLET PO (12:32)
[2021-04-03] MEDS: Atorvastatin Calcium 80 MG TABLET PO (12:32)
[2021-04-03] MEDS: Ticagrelor 90 MG TABLET PO ×2 (12:32→20:36)
[2021-04-03] MEDS: Insulin Lispro 100 UNIT/ML 3 ML VIAL SUBCUT ×3 (12:32→20:37)
[2021-04-03] MEDS: polyethylene glycoL 3350 17 GM POWD.PACK PO (12:33)
[2021-04-03] MEDS: levoFLOXacin/D5W 500 MG/100 ML PIGGYBACK 100 MG IV (12:56)
--- NOTE | 2021-04-03 13:57 | P.PNIM_ITS ---
Subjective Subjective Date of Service: 04/03/21 Interval History: went to OR for hematoma evacuation this morning R hand painful no chest pain no N/V Physical Exam Vital Signs: Vital Signs: Last Vital Signs Temp 97.0 F 04/03/21 12:37 Pulse 77 04/03/21 12:37 Resp 18 04/03/21 12:37 BP 151/84 H 04/03/21 12:37 Pulse Ox 100 04/03/21 12:37 Body Mass Index 29.2 Gen: in no acute distress HEENT: sclera anicteric, moist mucus membranes Neck: supple Lungs: clear to auscultation bilaterally Heart: regular rate and rhythm, no murmurs Abd: soft, non-tender, non-distended Ext: R hand swollen and in surgical dressing Skin: warm/well-perfused Neuro: alert and oriented x3, no focal findings Psych: appropriate affect Objective Data Current Medications Generic Name Dose Route Start Last Admin Trade Name Freq PRN Reason Stop Dose Admin Amlodipine Besylate 5 mg 03/29/21 09:00 04/03/21 12:31 Amlodipine Besylate 5 Mg Tablet PO 5 mg DAILY [facility] Administration Protocol Aspirin 81 mg 03/28/21 21:00 04/02/21 21:01 Aspirin Enteric Coated 81 Mg Tablet.Dr PO 81 mg BEDTIME [facility] Administration Atorvastatin Calcium 80 mg 03/29/21 09:00 04/03/21 12:32 Atorvastatin Calcium 80 Mg Tablet PO 80 mg DAILY [facility] Administration Fentanyl 25 mcg 04/03/21 10:21 Fentanyl Citrate/Pf 100 Mcg/2 Ml Vial IVPUSH Q5M PRN Pain, Moderate (Pain Scale 4-6 Hydromorphone HCl 0.25 mg 03/30/21 11:09 03/31/21 00:51 Hydromorphone Hcl 0.5 Mg/0.5 Ml Syringe IVPUSH 0.25 mg Q5M PRN Administration Pain, Severe (Pain Scale 7-10) Clindamycin Phosphate 600 mg in 50 mls @ 100 mls/hr 03/29/21 12:00 04/03/21 13:13 Cleocin IV Infused Q8H [facility] Infusion Levofloxacin 500 mg in 100 mls @ 100 mls/hr 03/29/21 12:00 04/03/21 12:56 Levaquin IV 100 mls/hr Q24H [facility] Administration Insulin Glargine 45 unit 04/01/21 21:00 04/01/21 21:21 Insulin Glargine,Hum.Rec.Anlog 100 Unit/Ml 10 Ml Vial SUBCUT 45 unit BEDTIME [facility] Administration Insulin Human Lispro 0 unit 03/28/21 21:00 04/03/21 12:32 Insulin Lispro 100 Unit/Ml 3 Ml Vial SUBCUT 2 unit QIDACHS [facility] Administration Protocol Lisinopril 40 mg 03/29/21 09:00 04/03/21 12:32 Lisinopril 40 Mg Tablet PO 40 mg DAILY [facility] Administration Protocol Metoprolol Succinate 50 mg 03/29/21 09:00 04/03/21 07:48 Metoprolol Succinate Er 50 Mg Tab.Er.24h PO 50 mg DAILY [facility] Administration Protocol Omeprazole 20 mg 03/29/21 06:30 04/03/21 04:43 Omeprazole 20 Mg Capsule.Dr PO Not Given DAILY@0630 [facility] Ondansetron HCl 4 mg 03/30/21 11:09 Ondansetron Hcl 4 Mg/2 Ml Vial IVPUSH ONCE PRN Nausea and Vomiting Oxycodone HCl 10 mg 03/31/21 18:32 04/03/21 12:31 Oxycodone Hcl Immed Release 5 Mg Tablet PO 10 mg Q6H PRN Administration Pain, Severe (Pain Scale 7-10) Oxycodone HCl 5 mg 04/03/21 10:21 Oxycodone Hcl Immed Release 5 Mg Tablet PO ONCE PRN Pain, Severe (Pain Scale 7-10) Pharmacy Consult 1 each 03/28/21 16:25 Consult Rx Perform Med Rec MISCELLANE ONCE PRN Consult order Polyethylene Glycol 17 gm 04/01/21 10:05 04/03/21 12:33 Polyethylene Glycol 3350 17 Gm Powd.Pack PO 17 gm DAILY [facility] Administration Sodium Chloride 3 ml 03/29/21 00:00 04/03/21 07:51 0.9 % Sodium Chloride Flush 3 Ml Syringe IVFLUSH 3 ml QSHIFT [facility] Administration Ticagrelor 90 mg 03/28/21 21:00 04/03/21 12:32 Ticagrelor 90 Mg Tablet PO 90 mg BID [facility] Administration Labs CBC & Chem 7: 04/02/21 06:32 03/31/21 04:43 Labs: Laboratory Results - last 24 hr 04/02/21 04/02/21 04/03/21 16:22 20:39 07:18 POC Glucose 230 H 187 H 174 H 04/03/21 12:13 POC Glucose 178 H Impressions Hand MRI 04/02/21 18:09 IMPRESSION: Postprocedural changes and recurrent/residual collections within the thenar musculature and the dorsomedial subcutaneous fat of the wrist. The thenar eminence collection contains significant blood products and is most consistent with a hematoma, though residual infection is certainly possible. The dorsal collection is most consistent with an abscess or postoperative seroma. Reactive dorsal tenosynovitis. No evidence of osteomyelitis. Microbiology Microbiology Results: Microbiology 03/28/21 11:59 Blood - Venous Blood Culture - Final No growth after 5 days. 03/28/21 11:58 Blood - Venous Blood Culture - Final No growth after 5 days. 03/30/21 00:00 Wrist Right Gram Stain - Final 03/30/21 00:00 Wrist Right Routine Culture - Final No growth after 2 days 03/30/21 00:00 Hand Right Gram Stain - Final 03/30/21 00:00 Hand Right Routine Culture - Final No growth after 2 days Assessment and Plan (1) Cellulitis: Status: Acute Assessment and Plan: hospital d#7 61-year-old male presented with right upper extremity pain and swelling after dog bite # dog bite associated cellulitis with R thenar hematoma + R dorsal wrist abscess about extensor tendons - POD #4 I+D by orthopedics, POD #0 hematoma evacuation - clinda + levoflox d#6/14 per ID, following # L inguinal epidermal inclusion cyst, ruptured - f/u Gen Surg as outpt for consideration of excision # CAD with recent PCI - continue DAPT, statin # HTN - continue amlodipine, metoprolol succinate, lisinopril # DM2 - hold MTF, continue basal/bolus insulin # VTE ppx - d/c'ed LMWH due to bleeding from wound - SCDs
[2021-04-03 16:28] LABS: Glucose, Whole Blood 266 mg/dL (60-115)
[2021-04-03 20:18] LABS: Glucose, Whole Blood 161 mg/dL (60-115)
[2021-04-03] MEDS: Aspirin Enteric Coated 81 MG TABLET.DR PO (20:36)
[2021-04-03] MEDS: Insulin Glargine,Hum.rec.anlog 100 UNIT/ML 10 ML VIAL 45 UNIT SUBCUT (20:37)
[2021-04-04] MEDS: oxyCODONE HCl Immed Release 5 MG TABLET 10 MG PO ×5 (01:44→23:59)
[2021-04-04] MEDS: Clindamycin Phosphate/D5W 600 MG/50 ML PIGGYBACK 100 MG IV ×3 (03:54→21:34)
[2021-04-04] MEDS: Omeprazole 20 MG CAPSULE.DR PO (05:40)
[2021-04-04 07:12] VITALS: BP 115/78; PULSE 80; RESP 18; TEMP 36.6; O2SAT 96
[2021-04-04 07:28] LABS: Glucose, Whole Blood 166 mg/dL (60-115)
[2021-04-04] MEDS: 0.9 % Sodium Chloride Flush 3 ML SYRINGE IVFLUSH ×2 (07:36→17:17)
[2021-04-04] MEDS: amLODIPine Besylate 5 MG TABLET PO (07:41)
[2021-04-04] MEDS: Ticagrelor 90 MG TABLET PO ×2 (07:41→21:31)
[2021-04-04] MEDS: Metoprolol Succinate ER 50 MG TAB.ER.24H PO (07:41)
[2021-04-04] MEDS: Atorvastatin Calcium 80 MG TABLET PO (07:41)
[2021-04-04] MEDS: lisinopriL 40 MG TABLET PO (07:41)
[2021-04-04] MEDS: Insulin Lispro 100 UNIT/ML 3 ML VIAL SUBCUT ×3 (07:41→21:32)
--- NOTE | 2021-04-04 08:27 | PM.PNORT ---
Subjective Subjective Date of Service: 04/04/21 Interval history: POD1 s/p right hand I and D with Dr. Neville. He had an additional I and D with Dr. Neville on 03/30/21. Patient is resting comfortably in bed. He was working with OT. Pain is well managed. No overnight events. No additional complaints. Physical Exam Vital Signs: Vital Signs: Last Vital Signs Temp 98 F 04/04/21 07:12 Pulse 80 04/04/21 07:12 Resp 18 04/04/21 07:12 BP 115/78 04/04/21 07:12 Pulse Ox 96 04/04/21 07:12 Body Mass Index 29.2 Const: General: cooperative, healthy appearing and no acute distress Resp: Effort & Inspection: normal respiratory effort and able to speak in complete sentences Cardio: Rate: regular rate Peripheral pulses: Peripheral pulses 2+ throughout GI: Palpation (GI): Soft to palpation Skin: Lesions: no lesions Rashes: no rashes Extrem: Other: Right hand incisions clean dry and intact. Mild swelling. Sensation intact, Tenderness over the dorsum of the hand and thenar aspect. Iodoform for wound packing removed at bedside with mild blood drainage. No purulence or significant redness. Progress Note: A&P Assessment and plan (1) Abscess of hand, right: Status: Acute Assessment and Plan: POD1 s/p I&D right hand Packing was removed at bedside New dressing applied. Continue with abx. Continue to work on digit ROM (2) Cellulitis: Status: Acute (3) Dog bite of extremity: Status: Acute Fall Risk Details Current Medications: Current Medications Generic Name Dose Route Start Last Admin Trade Name Freq PRN Reason Stop Dose Admin Amlodipine Besylate 5 mg 03/29/21 09:00 04/04/21 07:41 Amlodipine Besylate 5 Mg Tablet PO 5 mg DAILY [facility] Administration Protocol Aspirin 81 mg 03/28/21 21:00 04/03/21 20:36 Aspirin Enteric Coated 81 Mg Tablet. PO 81 mg BEDTIME [facility] Administration Atorvastatin Calcium 80 mg 03/29/21 09:00 04/04/21 07:41 Atorvastatin Calcium 80 Mg Tablet PO 80 mg DAILY [facility] Administration Benzocaine 1 lozenge 04/04/21 08:12 Throat Lozenge, Medicated Lozenge MUCOUS MEM Q2H PRN Sore Throat Clindamycin Phosphate 600 mg in 50 mls @ 100 mls/hr 03/29/21 12:00 04/04/21 04:26 Cleocin IV Infused Q8H [facility] Infusion Levofloxacin 500 mg in 100 mls @ 100 mls/hr 03/29/21 12:00 04/03/21 14:19 Levaquin IV Infused Q24H [facility] Infusion Insulin Glargine 45 unit 04/01/21 21:00 04/03/21 20:37 Insulin Glargine,Hum.Rec.Anlog 100 Unit/Ml 10 Ml Vial SUBCUT 45 unit BEDTIME [facility] Administration Insulin Human Lispro 0 unit 03/28/21 21:00 04/04/21 07:41 Insulin Lispro 100 Unit/Ml 3 Ml Vial SUBCUT 2 unit QIDACHS [facility] Administration Protocol Lisinopril 40 mg 03/29/21 09:00 04/04/21 07:41 Lisinopril 40 Mg Tablet PO 40 mg DAILY [facility] Administration Protocol Metoprolol Succinate 50 mg 03/29/21 09:00 04/04/21 07:41 Metoprolol Succinate Er 50 Mg Tab.Er.24h PO 50 mg DAILY [facility] Administration Protocol Morphine Sulfate 4 mg 04/04/21 08:12 Morphine Sulfate 2 Mg/Ml Cartridge IVPUSH Q4H PRN severe pain Omeprazole 20 mg 03/29/21 06:30 04/04/21 05:40 Omeprazole 20 Mg Capsule.Dr PO 20 mg DAILY@0630 [facility] Administration Ondansetron HCl 4 mg 03/30/21 11:09 Ondansetron Hcl 4 Mg/2 Ml Vial IVPUSH ONCE PRN Nausea and Vomiting Oxycodone HCl 5 mg 04/03/21 10:21 Oxycodone Hcl Immed Release 5 Mg Tablet PO ONCE PRN Pain, Severe (Pain Scale 7-10) Oxycodone HCl 10 mg 04/04/21 08:14 Oxycodone Hcl Immed Release 5 Mg Tablet PO Q4H PRN Pain, Severe (Pain Scale 7-10) Pharmacy Consult 1 each 03/28/21 16:25 Consult Rx Perform Med Rec MISCELLANE ONCE PRN Consult order Polyethylene Glycol 17 gm 04/01/21 10:05 04/04/21 07:42 Polyethylene Glycol 3350 17 Gm Powd.Pack PO Not Given DAILY [facility] Sodium Chloride 3 ml 03/29/21 00:00 04/04/21 07:36 0.9 % Sodium Chloride Flush 3 Ml Syringe IVFLUSH 3 ml QSHIFT [facility] Administration Ticagrelor 90 mg 03/28/21 21:00 04/04/21 07:41 Ticagrelor 90 Mg Tablet PO 90 mg BID [facility] Administration Time Spent With Patient Time: Total time spent is greater than 50% in coordination of care (as documented) at patient's floor/unit and/or counseling patient: Time with patient: less than 15 minutes Procedures Date of Service Date of Service: 04/04/21
[2021-04-04] MEDS: Throat Lozenge, Medicated LOZENGE 1 LOZENGE MUCOUS MEM (08:29)
[2021-04-04] MEDS: Morphine Sulfate 2 MG/ML CARTRIDGE 4 MG IVPUSH ×4 (08:29→21:29)
--- NOTE | 2021-04-04 09:39 | HO.POSTANES ---
Post Anesthesia Evaluation Post Anesthesia Evaluation Vital Signs: Vital Signs Temp Pulse Resp BP Pulse Ox 04/04/21 07:12 98 F 80 18 115/78 96 04/03/21 23:37 97 F 90 18 126/76 97 Anesthesia: General Mental Status: Awake Pain Control: Satisfactory Nausea/Vomiting: None Hydration: Adequate Anesthesia-Related Issues: No Anes. Related Issues
[2021-04-04 11:15] LABS: Glucose, Whole Blood 265 mg/dL (60-115)
[2021-04-04] MEDS: levoFLOXacin/D5W 500 MG/100 ML PIGGYBACK 100 MG IV (12:08)
--- NOTE | 2021-04-04 13:35 | P.PNIM_ITS ---
Subjective Subjective Date of Service: 04/04/21 Interval History: R hand very painful Otherwise no complaints Physical Exam Vital Signs: Vital Signs: Last Vital Signs Temp 98 F 04/04/21 07:12 Pulse 80 04/04/21 07:12 Resp 18 04/04/21 07:12 BP 115/78 04/04/21 07:12 Pulse Ox 96 04/04/21 07:12 Body Mass Index 29.2 Gen: in no acute distress HEENT: sclera anicteric, moist mucus membranes Neck: supple Lungs: clear to auscultation bilaterally Heart: regular rate and rhythm, no murmurs Abd: soft, non-tender, non-distended Ext: R hand swollen and in surgical dressing Skin: warm/well-perfused, ruptured epidermal inclusion cyst in L groin Neuro: alert and oriented x3, no focal findings Psych: appropriate affect Objective Data Current Medications Generic Name Dose Route Start Last Admin Trade Name Freq PRN Reason Stop Dose Admin Amlodipine Besylate 5 mg 03/29/21 09:00 04/04/21 07:41 Amlodipine Besylate 5 Mg Tablet PO 5 mg DAILY [facility] Administration Protocol Aspirin 81 mg 03/28/21 21:00 04/03/21 20:36 Aspirin Enteric Coated 81 Mg Tablet.Dr PO 81 mg BEDTIME [facility] Administration Atorvastatin Calcium 80 mg 03/29/21 09:00 04/04/21 07:41 Atorvastatin Calcium 80 Mg Tablet PO 80 mg DAILY [facility] Administration Benzocaine 1 lozenge 04/04/21 08:12 04/04/21 08:29 Throat Lozenge, Medicated Lozenge MUCOUS MEM 1 lozenge Q2H PRN Administration Sore Throat Clindamycin Phosphate 600 mg in 50 mls @ 100 mls/hr 03/29/21 12:00 04/04/21 13:17 Cleocin IV Infused Q8H [facility] Infusion Levofloxacin 500 mg in 100 mls @ 100 mls/hr 03/29/21 12:00 04/04/21 13:18 Levaquin IV Infused Q24H [facility] Infusion Insulin Glargine 45 unit 04/01/21 21:00 04/03/21 20:37 Insulin Glargine,Hum.Rec.Anlog 100 Unit/Ml 10 Ml Vial SUBCUT 45 unit BEDTIME [facility] Administration Insulin Human Lispro 0 unit 03/28/21 21:00 04/04/21 11:55 Insulin Lispro 100 Unit/Ml 3 Ml Vial SUBCUT 6 unit QIDACHS [facility] Administration Protocol Lisinopril 40 mg 03/29/21 09:00 04/04/21 07:41 Lisinopril 40 Mg Tablet PO 40 mg DAILY [facility] Administration Protocol Metoprolol Succinate 50 mg 03/29/21 09:00 04/04/21 07:41 Metoprolol Succinate Er 50 Mg Tab.Er.24h PO 50 mg DAILY [facility] Administration Protocol Morphine Sulfate 4 mg 04/04/21 08:12 04/04/21 13:14 Morphine Sulfate 2 Mg/Ml Cartridge IVPUSH 4 mg Q4H PRN Administration severe pain Omeprazole 20 mg 03/29/21 06:30 04/04/21 05:40 Omeprazole 20 Mg Capsule.Dr PO 20 mg DAILY@0630 [facility] Administration Ondansetron HCl 4 mg 03/30/21 11:09 Ondansetron Hcl 4 Mg/2 Ml Vial IVPUSH ONCE PRN Nausea and Vomiting Oxycodone HCl 5 mg 04/03/21 10:21 Oxycodone Hcl Immed Release 5 Mg Tablet PO ONCE PRN Pain, Severe (Pain Scale 7-10) Oxycodone HCl 10 mg 04/04/21 08:14 04/04/21 09:38 Oxycodone Hcl Immed Release 5 Mg Tablet PO 10 mg Q4H PRN Administration Pain, Severe (Pain Scale 7-10) Pharmacy Consult 1 each 03/28/21 16:25 Consult Rx Perform Med Rec MISCELLANE ONCE PRN Consult order Polyethylene Glycol 17 gm 04/01/21 10:05 04/04/21 07:42 Polyethylene Glycol 3350 17 Gm Powd.Pack PO Not Given DAILY [facility] Sodium Chloride 3 ml 03/29/21 00:00 04/04/21 07:36 0.9 % Sodium Chloride Flush 3 Ml Syringe IVFLUSH 3 ml QSHIFT [facility] Administration Ticagrelor 90 mg 03/28/21 21:00 04/04/21 07:41 Ticagrelor 90 Mg Tablet PO 90 mg BID [facility] Administration Labs CBC & Chem 7: 04/02/21 06:32 03/31/21 04:43 Microbiology Microbiology Results: Microbiology 03/28/21 11:59 Blood - Venous Blood Culture - Final No growth after 5 days. 03/28/21 11:58 Blood - Venous Blood Culture - Final No growth after 5 days. 03/30/21 00:00 Wrist Right Gram Stain - Final 03/30/21 00:00 Wrist Right Routine Culture - Final No growth after 2 days 03/30/21 00:00 Hand Right Gram Stain - Final 03/30/21 00:00 Hand Right Routine Culture - Final No growth after 2 days Assessment and Plan (1) Cellulitis: Status: Acute Assessment and Plan: hospital d#8 61-year-old male presented with right upper extremity pain and swelling after dog bite # dog bite associated cellulitis with R thenar hematoma + R dorsal wrist abscess about extensor tendons - POD#5 I+D by orthopedics, POD#1 hematoma evacuation - clinda + levoflox d#7/14 per ID, following, likely just levoflox upon d/c, possibly tomorrow # L inguinal epidermal inclusion cyst, ruptured - f/u Gen Surg as outpt for consideration of excision # CAD with recent PCI - continue DAPT, statin # HTN - continue amlodipine, metoprolol succinate, lisinopril # DM2 - hold MTF, continue basal/bolus insulin # VTE ppx - d/c'ed LMWH due to bleeding from wound - SCDs # dispo - anticipate [facility] for wound care, OT
[2021-04-04 15:27] VITALS: BP 145/86; PULSE 77; RESP 14; TEMP 35.8; O2SAT 100
--- NOTE | 2021-04-04 15:56 | PM.IDPN ---
Subjective Subjective Date of Service: 04/04/21 Interval History: he says hand feels better Critical Care Time (minutes): 15 Objective Data Labs CBC & Chem 7: 04/02/21 06:32 03/31/21 04:43 Labs: Laboratory Results - last 24 hr 04/03/21 04/03/21 04/04/21 16:20 20:06 07:12 POC Glucose 266 H 161 H 166 H 04/04/21 11:04 POC Glucose 265 H Microbiology Microbiology Results: Microbiology 03/28/21 11:59 Blood - Venous Blood Culture - Final No growth after 5 days. 03/28/21 11:58 Blood - Venous Blood Culture - Final No growth after 5 days. 03/30/21 00:00 Wrist Right Gram Stain - Final 03/30/21 00:00 Wrist Right Routine Culture - Final No growth after 2 days 03/30/21 00:00 Hand Right Gram Stain - Final 03/30/21 00:00 Hand Right Routine Culture - Final No growth after 2 days Physical Exam Vital Signs: Vital Signs: Last Vital Signs Temp 96.5 F L 04/04/21 15:27 Pulse 77 04/04/21 15:27 Resp 14 04/04/21 15:27 BP 145/86 H 04/04/21 15:27 Pulse Ox 100 04/04/21 15:27 Body Mass Index 29.2 Const: General: cooperative HENMT: Head: Yes normal to inspection Mouth: Normal oral and palatal mucosa present Resp: Effort & Inspection: normal respiratory effort Cardio: Rate: regular rate Rhythm: regular rhythm GI: Palpation (GI): Tenderness to palpation present (GI) Extrem: Other: hand less swollen Assessment and Plan Assessment and plan (1) Abscess of hand, right: Problem details: Hand cellulitis post injury Organisms include gram negative,gram positive (Pasteurella) Status: Acute Assessment and Plan: Now day 7 Clindamycin and Levaquin so would finish 14 d total Levaquin and stop Clindamycin on discharge Time Spent With Patient Time: Total time spent is greater than 50% in coordination of care (as documented) at patient's floor/unit and/or counseling patient: Time with patient: less than 15 minutes
[2021-04-04 16:47] LABS: Glucose, Whole Blood 131 mg/dL (60-115)
[2021-04-04 17:17] VITALS: RESP 18
[2021-04-04 20:34] LABS: Glucose, Whole Blood 316 mg/dL (60-115)
[2021-04-04] MEDS: Aspirin Enteric Coated 81 MG TABLET.DR PO (21:31)
[2021-04-04] MEDS: Insulin Glargine,Hum.rec.anlog 100 UNIT/ML 10 ML VIAL 45 UNIT SUBCUT (21:33)
[2021-04-04 23:52] VITALS: BP 116/77; PULSE 85; RESP 19; TEMP 36.2; O2SAT 97
[2021-04-05] MEDS: Clindamycin Phosphate/D5W 600 MG/50 ML PIGGYBACK 100 MG IV (03:59)
[2021-04-05] MEDS: Throat Lozenge, Medicated LOZENGE 1 LOZENGE MUCOUS MEM ×2 (04:00→08:50)
[2021-04-05] MEDS: Omeprazole 20 MG CAPSULE.DR PO (05:54)
[2021-04-05] MEDS: Morphine Sulfate 2 MG/ML CARTRIDGE 4 MG IVPUSH (05:59)
[2021-04-05 07:32] VITALS: BP 109/70; PULSE 80; RESP 18; TEMP 36.2; O2SAT 99
[2021-04-05 07:43] LABS: Glucose, Whole Blood 149 mg/dL (60-115)
[2021-04-05 08:50] VITALS: BP 109/70; PULSE 80
[2021-04-05] MEDS: lisinopriL 40 MG TABLET PO (08:50)
[2021-04-05] MEDS: Ticagrelor 90 MG TABLET PO (08:50)
[2021-04-05] MEDS: amLODIPine Besylate 5 MG TABLET PO (08:50)
[2021-04-05] MEDS: Metoprolol Succinate ER 50 MG TAB.ER.24H PO (08:50)
[2021-04-05] MEDS: Atorvastatin Calcium 80 MG TABLET PO (08:50)
[2021-04-05] MEDS: 0.9 % Sodium Chloride Flush 3 ML SYRINGE IVFLUSH (08:51)
[2021-04-05] MEDS: oxyCODONE HCl Immed Release 5 MG TABLET 10 MG PO (08:51)
--- NOTE | 2021-04-05 09:31 | P.PNOP_ITS ---
Subjective Subjective Date of Service: 04/05/21 Interval history: POD2 s/p right dorsal wrist abcess I&D and evacuation of themar hematoma with Dr. Neville. Patient is resting comfortably in bed. Pain is well managed. No overnight events. No additional complaints. Physical Exam Vital Signs: Vital Signs: Last Vital Signs Temp 97.2 F 04/05/21 07:32 Pulse 80 04/05/21 08:50 Resp 18 04/05/21 07:32 BP 109/70 04/05/21 08:50 Pulse Ox 99 04/05/21 07:32 Body Mass Index 29.2 Const: General: cooperative, healthy appearing and no acute distress Resp: Effort & Inspection: normal respiratory effort and able to speak in complete sentences Cardio: Rate: regular rate Peripheral pulses: Peripheral pulses 2+ throughout GI: Palpation (GI): Soft to palpation Skin: Lesions: no lesions Rashes: no rashes Extrem: Other: Right hand incisions clean, dry and intact. Mild swelling. Sensation intact. Tenderness over the dorsum of the hand and thenar aspect. Is able to demonstrate all digits flexion and extension but is limited due to pain. Brisk cap refill. Radial pulse intact. Progress Note: A&P Assessment and plan (1) Abscess of hand, right: Status: Acute Assessment and Plan: POD2 s/p I&D right hand Incisions are golden, dry, and intact New dressing applied. Continue with abx per medicine and I&D Continue to work on digit ROM Patient may be discharged from orthopedic standpoint pending evaluation by medicine and I&D Follow-up 3-5 days in outpatient ortho office 04/08/21 at 3:30pm (2) Cellulitis: Status: Acute (3) Dog bite of extremity: Status: Acute Fall Risk Details Current Medications: Current Medications Generic Name Dose Route Start Last Admin Trade Name Freq PRN Reason Stop Dose Admin Amlodipine Besylate 5 mg 03/29/21 09:00 04/05/21 08:50 Amlodipine Besylate 5 Mg Tablet PO 5 mg DAILY [facility] Administration Protocol Aspirin 81 mg 03/28/21 21:00 04/04/21 21:31 Aspirin Enteric Coated 81 Mg Tablet. PO 81 mg BEDTIME [facility] Administration Atorvastatin Calcium 80 mg 03/29/21 09:00 04/05/21 08:50 Atorvastatin Calcium 80 Mg Tablet PO 80 mg DAILY [facility] Administration Benzocaine 1 lozenge 04/04/21 08:12 04/05/21 08:50 Throat Lozenge, Medicated Lozenge MUCOUS MEM 1 lozenge Q2H PRN Administration Sore Throat Clindamycin Phosphate 600 mg in 50 mls @ 100 mls/hr 03/29/21 12:00 04/05/21 04:32 Cleocin IV Infused Q8H [facility] Infusion Levofloxacin 500 mg in 100 mls @ 100 mls/hr 03/29/21 12:00 04/04/21 13:18 Levaquin IV Infused Q24H [facility] Infusion Insulin Glargine 45 unit 04/01/21 21:00 04/04/21 21:33 Insulin Glargine,Hum.Rec.Anlog 100 Unit/Ml 10 Ml Vial SUBCUT 45 unit BEDTIME [facility] Administration Insulin Human Lispro 0 unit 03/28/21 21:00 04/05/21 07:44 Insulin Lispro 100 Unit/Ml 3 Ml Vial SUBCUT Not Given QIDACHS [facility] Protocol Lisinopril 40 mg 03/29/21 09:00 04/05/21 08:50 Lisinopril 40 Mg Tablet PO 40 mg DAILY [facility] Administration Protocol Metoprolol Succinate 50 mg 03/29/21 09:00 04/05/21 08:50 Metoprolol Succinate Er 50 Mg Tab.Er.24h PO 50 mg DAILY [facility] Administration Protocol Morphine Sulfate 4 mg 04/04/21 08:12 04/05/21 05:59 Morphine Sulfate 2 Mg/Ml Cartridge IVPUSH 4 mg Q4H PRN Administration severe pain Omeprazole 20 mg 03/29/21 06:30 04/05/21 05:54 Omeprazole 20 Mg Capsule.Dr PO 20 mg DAILY@0630 [facility] Administration Ondansetron HCl 4 mg 03/30/21 11:09 Ondansetron Hcl 4 Mg/2 Ml Vial IVPUSH ONCE PRN Nausea and Vomiting Oxycodone HCl 5 mg 04/03/21 10:21 Oxycodone Hcl Immed Release 5 Mg Tablet PO ONCE PRN Pain, Severe (Pain Scale 7-10) Oxycodone HCl 10 mg 04/04/21 08:14 04/05/21 08:51 Oxycodone Hcl Immed Release 5 Mg Tablet PO 10 mg Q4H PRN Administration Pain, Severe (Pain Scale 7-10) Pharmacy Consult 1 each 03/28/21 16:25 Consult Rx Perform Med Rec MISCELLANE ONCE PRN Consult order Polyethylene Glycol 17 gm 04/01/21 10:05 04/05/21 08:48 Polyethylene Glycol 3350 17 Gm Powd.Pack PO Not Given DAILY [facility] Sodium Chloride 3 ml 03/29/21 00:00 04/05/21 08:51 0.9 % Sodium Chloride Flush 3 Ml Syringe IVFLUSH 3 ml QSHIFT [facility] Administration Ticagrelor 90 mg 03/28/21 21:00 04/05/21 08:50 Ticagrelor 90 Mg Tablet PO 90 mg BID [facility] Administration Time Spent With Patient Time: Total time spent is greater than 50% in coordination of care (as documented) at patient's floor/unit and/or counseling patient: Time with patient: less than 15 minutes Procedures Date of Service Date of Service: 04/05/21
[2021-04-05 11:36] LABS: Glucose, Whole Blood 177 mg/dL (60-115)
[2021-04-05] MEDS: Insulin Lispro 100 UNIT/ML 3 ML VIAL SUBCUT (11:45)
--- NOTE | 2021-04-05 12:03 | MHC.CM.PN ---
Addendum entered by Nohemy Kaba 04/05/21 13:03: the below addendum was incorrect it was written on the wrong patient , please disreguard this 04/05/21 at 13:00 Addendum entered by Nohemy Kaba 04/05/21 13:00: hospitsalist asked me if i wpould go into asree patient again and aske her about the vna , she reported that she has a new pcp dr bernabe trejo of [place] and called he tesfaye to make appotinemt once she is discharged. she again decline vna servcies. later hospitalist called to me as patients potassium is low and he wanted to keep her here awahile. staff nurse checked to see when she last filled any script and was told it was in november. patient wanting to leave against medical advice and sighing paperwork Original Note: NURSE RATOPRINTER NOTE ELECTRONIC MEDICAL RECORD REVIEWED ALONG WITH CASE DISCUSSED WITH STAFF NRARIADNE AND TAMARA PATIENT WILL BE DISCHARGED HOME TODAY . NEW REFERRAL TO THE [facility] FOR [facility] FOR WOUND ASSESSMENT AND DRESSING CHANGES. PCP PATIENT TO CALL HIS PCP FOR [facility] DISCHARGE WELL THE SURGEON FOR FOLLOW UP TRANSPORTATION FAMILY INIATED AND CONFIRMED WITH THE [facility] LEARNING AND DEVELOPMENT INTERN NURSE THAT THEY WILL BE ABLE TO TAKE HIM AND [facility] TOMORROW FOR WOUND CARE AND DRESSINGS
--- NOTE | 2021-04-05 12:27 | PM.DS ---
DS: Providers Provider Date of Service: 04/05/21 Date of admission: 03/28/21 19:12 Primary care physician: Aj Alonso MD Consults: 03/28/21 17:16 Consult to Infectious Diseases Routine Consulting Provider: Megan Denis Reason for consultation: dog bite Consult to Orthopedics Routine Consulting Provider: Barb Neville Reason for consultation: dog bite 04/03/21 12:17 Consult to Hospitalist Routine Consulting Provider: Hospitalist Reason For Exam: please review medications upon arrival to floor DS: Diagnosis Discharge Diagnosis (1) Abscess of hand, right: Status: Acute Problem details: Hand cellulitis post injury Organisms include gram negative,gram positive (Pasteurella) (2) Cellulitis: Status: Acute (3) Dog bite of extremity: Status: Acute (4) Postoperative seroma: Status: Acute (5) Postoperative hematoma: Status: Acute (6) Epidermal cyst: Status: Acute DS: Medications Discharge Medications Home Medications: Home Medications Medication Instructions Recorded Confirmed Lantus Solostar U-100 Insulin 42 unit SUBCUT BEDTIME 10/03/20 03/28/21 metformin 1,000 mg BID 10/03/20 03/28/21 omeprazole 20 mg DAILY 10/03/20 03/28/21 amlodipine 1 tab PO QAM 02/01/21 03/28/21 lisinopril 40 mg PO DAILY 02/01/21 03/28/21 morphine 1 tab PO Q12H 02/01/21 03/28/21 oxycodone-acetaminophen 1 tab PO Q8H PRN 02/01/21 03/28/21 atorvastatin 80 mg tablet 80 mg PO BEDTIME 02/18/21 03/28/21 ticagrelor 90 mg tablet 90 mg PO BID 02/18/21 03/28/21 Fish Oil 1 cap PO TID 03/28/21 03/28/21 Previous Rx's Medication Instructions Recorded metoprolol succinate 50 mg 50 mg PO DAILY #30 tab 11/14/20 tablet,extended release 24 hr aspirin 81 mg tablet,delayed 81 mg PO BEDTIME #30 tab 11/25/20 release tramadol 50 mg PO TID PRN #10 tab 03/27/21 levofloxacin 500 mg PO DAILY #7 tab 04/05/21 DS: Summary Hospital Course Hospital Course: From admission history and physical by hospitalist Joe Lyons MD, 03/28/21: 61-year-old male presented with 2-3 days of right wrist pain and swelling spreading to hand and moving up arm. Patient states that he fell down the stairs 5 days prior to presentation, and injured his right wrist. Not appear to be significantly injured at that point. Three days prior to presentation patient got bitten by a dog and his right wrist. Since then right wrist and hand has become swollen, erythematous, and painful. Patient does note some chills but denies fevers. Continues to worsen so he came to the ED. This 61-year-old male was admitted to the medical-surgical floor with orthopedic and ID consultation for cellulitis of the right hand that occurred after a dog bite. He was taken see operating room and underwent incision and drainage of a right thenar hematoma and a right dorsal wrist abscess that was around his extensor tendons on 03/30/21. Blood and wound cultures were negative. He was treated with clindamycin and levofloxacin. Postoperative course was complicated by persistent bloody drainage from the wound. He was taken back to the operating room on 04/03/21 and underwent evacuation of a postoperative hematoma and seroma. The drainage resolved. He was seen by Occupational therapy. He was discharged home with [facility] services for wound care and OT. During his hospital course he had a ruptured inguinal epidermal inclusion cyst and can follow up with General surgery as an outpatient for consideration of excision. Time Spent with Patient Time attestation: Total time spent providing and/or coordinating discharge services: 45 Discharge coordination time: Greater than 30 minutes Quality: Stroke Does the patient have a stroke diagnosis?: No Physical Exam Vital Signs: Vital Signs: Last Vital Signs Temp 97.2 F 04/05/21 07:32 Pulse 80 04/05/21 08:50 Resp 18 04/05/21 07:32 BP 109/70 04/05/21 08:50 Pulse Ox 99 04/05/21 07:32 Body Mass Index 29.2 Gen: in no acute distress HEENT: sclera anicteric, moist mucus membranes Neck: supple Lungs: clear to auscultation bilaterally Heart: regular rate and rhythm, no murmurs Abd: soft, non-tender, non-distended Ext: R hand swollen and in surgical dressing Skin: warm/well-perfused, ruptured epidermal inclusion cyst in L groin Neuro: alert and oriented x3, no focal findings Psych: appropriate affect per Ortho 04/05/21: Right hand incisions clean, dry and intact. Mild swelling. Sensation intact. Tenderness over the dorsum of the hand and thenar aspect. Is able to demonstrate all digits flexion and extension but is limited due to pain. Brisk cap refill. Radial pulse intact. DS: Data Data Completed and Pending Completed studies during hospitalization [Text1]: Laboratory Results WBC 8.3 X10*3/uL (4.8-10.8) 04/02/21 06:32 RBC 4.05 X10*6/uL (4.60-5.80) L 04/02/21 06:32 Hgb 11.0 g/dl (14.0-18.0) L 04/02/21 06:32 Hct 34.1 % (42-52) L 04/02/21 06:32 MCV 84.2 fL (80-98) 04/02/21 06:32 MCH 27.2 pg (27.0-33.0) 04/02/21 06:32 MCHC 32.3 g/dl (31.0-36.0) 04/02/21 06:32 RDW 14.3 % (11.0-16.0) 04/02/21 06:32 Plt Count 336 X10*3/uL (160-400) 04/02/21 06:32 MPV 9.1 fL (9.4-12.4) L 04/02/21 06:32 Immature Gran % (Auto) 0.5 % (0.0-0.4) H 03/29/21 05:39 Neut % (Auto) 54.7 % (45-73) 03/29/21 05:39 Lymph % (Auto) 33.2 % (20-40) 03/29/21 05:39 Howard % (Auto) 7.8 % (2-11) 03/29/21 05:39 Eos % (Auto) 3.3 % (0-4) 03/29/21 05:39 Baso % (Auto) 0.5 % (0-2) 03/29/21 05:39 Lymph # (Auto) 2.7 X10*3/uL (1.2-4.9) 03/29/21 05:39 Howard # (Auto) 0.6 X10*3/uL (0.1-1.2) 03/29/21 05:39 Eos # (Auto) 0.3 X10*3/uL (0.0-0.4) 03/29/21 05:39 Baso # (Auto) 0.0 X10*3/uL (0.0-0.2) 03/29/21 05:39 Abs Immat Gran (auto) 0.04 X10*3/uL (0.00-0.03) H 03/29/21 05:39 Absolute Neuts (auto) 4.4 X10*3/uL (2.0-8.3) 03/29/21 05:39 Absolute Nucleated RBC 0.000 X10*3/uL (0.0-0.012) 04/02/21 06:32 Nucleated RBC % (auto) 0.0 /100WBC (0.0-0.2) 04/02/21 06:32 ESR 48 MM/HR (0-15) H 03/28/21 11:58 PT 12.1 SEC (10.8-13.0) 03/28/21 11:58 INR 1.0 (0.9-1.1) 03/28/21 11:58 APTT 36.3 SEC (24.1-38.0) 03/28/21 11:58 Sodium 138 mmol/L (135-145) 03/31/21 04:43 Potassium 4.1 mmol/L (3.3-5.1) 03/31/21 04:43 Chloride 103 mmol/L (96-108) 03/31/21 04:43 Carbon Dioxide 27 mmol/L (22-29) 03/31/21 04:43 Anion Gap 12 (12-20) 03/31/21 04:43 BUN 12 mg/dL (9-16) 03/31/21 04:43 Creatinine 0.88 mg/dL (0.5-1.4) 03/31/21 04:43 Estim Creat Clear Calc 103.8 03/31/21 04:43 Estimated GFR > 60 03/31/21 04:43 POC Glucose 177 mg/dL (60-115) H 04/05/21 11:32 Random Glucose 166 mg/dL (60-115) H 03/29/21 05:39 Fasting Glucose 194 mg/dL (60-99) H 03/31/21 04:43 Lactic Acid 2.7 mmol/L (0.5-2.0) H* 03/28/21 11:58 Lactic Acid Fup @ 2Hr 3.2 mmol/L (0.5-2.0) H* 03/28/21 14:07 Lactic Acid Fup @ 4Hr 2.0 mmol/L (0.5-2.0) 03/28/21 17:00 Calcium 9.2 mg/dL (8.4-10.2) D 03/31/21 04:43 Total Bilirubin 1.6 mg/dL (0.0-1.0) H 03/28/21 11:58 AST 17 U/L (5-37) 03/28/21 11:58 ALT 25 U/L (0-40) 03/28/21 11:58 Alkaline Phosphatase 67 U/L (39-117) 03/28/21 11:58 C-Reactive Protein 3.16 mg/dL (< or = 0.50) H 04/02/21 06:32 Total Protein 6.9 g/dL (6.5-8.0) 03/28/21 11:58 Albumin 4.0 g/dL (3.5-5.0) 03/28/21 11:58 Vancomycin Trough < 3.0 mcg/mL (10.0-20.0) L 03/30/21 15:35 COVID-19 (MJ) Negative (Negative) 03/28/21 17:00 COVID-19 Clin Com See Note 03/28/21 17:[address] 03/28/21 12:47 IMPRESSION: 2. Mild subcutaneous swelling with small air droplets in the soft tissues of the dorsum of the hand. 2. Small intramuscular abscess involving the thenar eminence at the palm of the hand. Hand/Wrist X-Ray 03/28/21 13:00 IMPRESSION: There is soft tissue gas seen along the ulnar aspect of wrist. No visible fracture, dislocation or subluxation seen. Hand MRI 04/02/21 18:09 IMPRESSION: Postprocedural changes and recurrent/residual collections within the thenar musculature and the dorsomedial subcutaneous fat of the wrist. The thenar eminence collection contains significant blood products and is most consistent with a hematoma, though residual infection is certainly possible. The dorsal collection is most consistent with an abscess or postoperative seroma. Reactive dorsal tenosynovitis. No evidence of osteomyelitis. Discharge Plan Discharge Patient Disposition: Home Health Service Discharge Diagnosis: cellulitis and abscess of right hand due to dog bite postoperative hematoma/seroma epidermal inclusion cyst Referrals: [facility] [Outside] - 1 Day ([facility] TO PROVIDE WOUND ASSESSMENT AND DRESSING CHANGES PER DISCHARGE INSTRUCTIONS FOLLOW UP WITH SURGEON DIRECTED PCP PLEASE CALL ON WEDNESDAY TO FOLLOW UP POST HOSPITAL DISCHARGE TRANSPORTATION FAMILY) Aj Alonso MD [Primary Care Provider] - 1 Week Jessica Bernard PA-C [Physician Wedding Transportation Driver] - 1 Week ( 04/08/21 at 3:30pm) Gallito Fleming MD [Physician] - 1 Month Discharge Medications: New levofloxacin 500 mg tablet 500 mg PO DAILY Qty: 7 RF: 0 Continued metoprolol succinate [Toprol XL] 50 mg tablet extended release 24 hr 50 mg PO DAILY Qty: 30 RF: 6 aspirin 81 mg tablet,delayed release (DR/EC) 81 mg PO BEDTIME Qty: 30 RF: 4 omeprazole 20 mg Capsule,Delayed Release(Dr/Ec) 20 mg DAILY RF: 0 metformin 1,000 mg Tablet 1,000 mg BID RF: 0 Lantus Solostar U-100 Insulin 100 unit/mL (3 mL) Insulin Pen 42 unit SUBCUT BEDTIME RF: 0 amlodipine 5 mg tablet 1 tab PO QAM RF: 0 morphine 30 mg tablet extended release 1 tab PO Q12H RF: 0 oxycodone-acetaminophen 5-325 mg tablet 1 tab PO Q8H PRN (Reason: pain) RF: 0 lisinopril 40 mg tablet 40 mg PO DAILY RF: 0 Fish Oil 340-1,000 mg capsule 1 cap PO TID RF: 0 ticagrelor 90 mg tablet 90 mg PO BID RF: 0 atorvastatin 80 mg tablet 80 mg PO BEDTIME RF: 0 Discontinued amoxicillin-pot clavulanate [Augmentin] 500-125 mg tablet 1 tab PO Q12H Qty: 20 RF: 0 tramadol 50 mg tablet 50 mg PO TID PRN (Reason: pain) Qty: 10 RF: 0 Discharge Orders: Discharge Order (Routine); Ordered 04/05/21 Ordered By: Kiran Shi Diet: advance to usual diet and diabetic diet Activity on Discharge: As tolerated Stand Alone Forms: Patient Portal Discharge page Activity Restrictions/Additional Instructions: Daily dressing changes right hand Keep dressing clean, dry, and intact Continue to work on gentle ROM of all digits and wrist Will need out patient OT, ordered by ortho Patient needs to follow up with ortho 3-5 days after d/c: 04/08/21 at 3:30pm Continue abx- take LEVOFLOXACIN 500 MG DAILY FOR 7 DAYS Follow up with your primary care doctor in 1-2 weeks Care Plan Goals: resolved hand infection Restored hand function Health Concerns: hand infection/abscess/cellulitis epidermal inclusion cyst Plan of Treatment: as above- for wound care, antibiotics, and orthopedics followup for epidermal inclusion cyst in groin, elective outpatient excision by General Surgery when hand infection has resolved please quit smoking! Assessment: as above Patient Instructions: Levofloxacin (By mouth), Incision and Drainage (DC) Discharge Date/Time: 04/05/21 12:13
--- NOTE | 2021-04-05 12:28 | W.MHC.F2F ---
Service Date Service Date: 04/05/21 Encounter Date of encounter: 04/05/21 Reasons for Services Signs and symptoms assessed: postop Reason for shelter: wound care, postoperative assessment and/or care, medication management and medication treatment Reason for occupational therapy: therapeutic exercises and restore joint function Overseeing Care: Aj Alonso Homebound: Leaving the home is medically contraindicated at this time without the asist of a device and/or another person due th the listed conditions above and below. Reason homebound: immunosuppression / infection risk and weakness related to hospital stay Homebound supporting statement: Daily dressing changes right hand Keep dressing clean, dry, and intact Continue to work on gentle ROM of all digits and wrist Will need out patient OT, ordered by ortho Patient needs to follow up with ortho 3-5 days after d/c: 04/08/21 at 3:30pm Continue abx- take LEVOFLOXACIN 500 MG DAILY FOR 7 DAYS Follow up with your primary care doctor in 1-2 weeks Certification: Based on the above findings, I certify that this patient is confined to the home and needs intermittent shelter care, physical therapy and/or speech therapy, or continues to need occupational therapy. The patient is under my care, and I have initiated the establishment of the plan of care. The patient will be followed by a physician who will periodically review the plan of care.
== END 2021-04-05 12:13 | disposition home health service (06) | DRG 982 ==
LOC: HO.ED 17:21 → HO.S3 19:13
PROVIDERS: Orthopaedic Surgery; Physician Assistant; Admitting Provider Internal Medicine; Emergency Provider Emergency Medicine; PCP Internal Medicine; Visit Provider Family Medicine
PROC: 0KCC0ZZ Extirpation of Matter from Right Hand Muscle, Open Approach (ICD-10-PCS; principal; 2021-03-30 09:00)
DX: L03.113 Cellulitis of right upper limb (principal); M96.840 Postprocedural hematoma of a musculoskeletal structure following a musculoskeletal system procedure; M96.842 Postprocedural seroma of a musculoskeletal structure following a musculoskeletal system procedure; S61.431A Puncture wound without foreign body of right hand, initial encounter; M65.041 Abscess of tendon sheath, right hand; W54.0XXA Bitten by dog, initial encounter; Y93.9 Activity, unspecified; Y92.9 Unspecified place or not applicable; Y99.9 Unspecified external cause status; I25.10 Atherosclerotic heart disease of native coronary artery without angina pectoris; L72.8 Other follicular cysts of the skin and subcutaneous tissue; E11.9 Type 2 diabetes mellitus without complications; F17.210 Nicotine dependence, cigarettes, uncomplicated; Z20.822 Contact with and (suspected) exposure to COVID-19; Z98.61 Coronary angioplasty status; Z71.6 Tobacco abuse counseling; Z79.4 Long term (current) use of insulin; Z79.82 Long term (current) use of aspirin; Z79.891 Long term (current) use of opiate analgesic; Z79.899 Other long term (current) drug therapy
CPT/HCPCS: 36415; 73070; 73090; 73110; 73130; 73201; 73220; 80048; 80053; 80202; 82947; 83605; 85014; 85018; 85025; 85027; 85610; 85652; 85730; 86140; 87040; 87071; 87205; 87635; 90715; 96365; 96375; 97110; 97167; 99283; 99285; A9585; J1170; J1650; J1956; J2060; J2250; J2270; J2543; J2795; J3010; J3370; Q9967

== ENCOUNTER 2021-04-08 | Outpatient (REF) | payer MEDICARE, OTHER, SELFPAY | END 2021-04-08 00:01 | disposition home or self-care (01) | LOC: CF | PROVIDERS: Visit Provider Physician Assistant | DX: S61.451D Open bite of right hand, subsequent encounter (principal); L03.113 Cellulitis of right upper limb; W54.0XXD Bitten by dog, subsequent encounter; I21.4 Non-ST elevation (NSTEMI) myocardial infarction; I24.9 Acute ischemic heart disease, unspecified | CPT/HCPCS: 99212 ==

== ENCOUNTER → 2021-04-15 12:34 | Outpatient (BNVA) | payer MEDICARE, OTHER, SELFPAY | PROVIDERS: Visit Provider Physician Assistant | DX: L76.34 Postprocedural seroma of skin and subcutaneous tissue following other procedure (principal); W54.0XXD Bitten by dog, subsequent encounter; F17.200 Nicotine dependence, unspecified, uncomplicated; I25.10 Atherosclerotic heart disease of native coronary artery without angina pectoris; E11.9 Type 2 diabetes mellitus without complications | CPT/HCPCS: 99212 ==

== ENCOUNTER → 2021-05-07 12:59 | Outpatient (BNVA) | payer MEDICARE, OTHER, SELFPAY | PROVIDERS: Visit Provider Orthopaedic Surgery | DX: S61.451D Open bite of right hand, subsequent encounter (principal); M25.641 Stiffness of right hand, not elsewhere classified; M25.631 Stiffness of right wrist, not elsewhere classified; L02.511 Cutaneous abscess of right hand | CPT/HCPCS: 99212 ==

== ENCOUNTER → 2021-05-28 12:51 | Outpatient (BNVA) | payer MEDICARE, OTHER, SELFPAY | PROVIDERS: Referring Provider Internal Medicine; Visit Provider Internal Medicine | DX: I25.10 Atherosclerotic heart disease of native coronary artery without angina pectoris (principal); I10 Essential (primary) hypertension; E11.8 Type 2 diabetes mellitus with unspecified complications; F17.200 Nicotine dependence, unspecified, uncomplicated; Z71.6 Tobacco abuse counseling; Z79.899 Other long term (current) drug therapy | CPT/HCPCS: 93005; 99212 ==

== ENCOUNTER → 2021-06-13 14:01 | Outpatient (BNVA) | payer MEDICARE, OTHER, SELFPAY | PROVIDERS: Visit Provider Urology | DX: R97.20 Elevated prostate specific antigen [PSA] (principal); N40.1 Benign prostatic hyperplasia with lower urinary tract symptoms; R33.9 Retention of urine, unspecified; R35.1 Nocturia; N13.8 Other obstructive and reflux uropathy | CPT/HCPCS: 51798; 99212 ==

== ENCOUNTER → 2021-06-16 14:35 | Outpatient (BNVA) | payer MEDICARE, OTHER, SELFPAY | PROVIDERS: Visit Provider Orthopaedic Surgery | DX: L02.511 Cutaneous abscess of right hand (principal); M25.641 Stiffness of right hand, not elsewhere classified; M25.631 Stiffness of right wrist, not elsewhere classified | CPT/HCPCS: 99212 ==

== ENCOUNTER 2021-06-26 09:30 | Outpatient (RCR) | payer MEDICARE, SELFPAY ==
--- NOTE | 2021-06-10 12:18 | MHC.OT.OP ---
[address] [phone] F: [phone] Occupational Therapy Progress Note Diagnosis: Right hand swelling Date of Surgery: 04/03/21 Date of Evaluation: 05/06/21 Treatments to Date: 10 Subjective: I had to have some one cut my grass, I can't stand the vibration Pain Score: 7 Pain Location: Right ulnar wrist and dorsal wrist Objective Measures: Wrist ext/flex 50/50 Digit AROM tip-palm Gross grasp 20lb Status: Progressing Assessment: Cruz is about 11 weeks s/p dog bite to right hand, requiring I&D. He has significantly improved digit ROM and decreased scar adhesions, still tight and somewhat limiting, also w/ decreased hand strength. Overall good participation in daily activities. Good follow through w/ self stretch and scar massage, he appears very motivated. Short Term Goals: Demo indep with HEP (met) Wrist flex to 50 deg (met) Wrist ext to 50 deg (met) Digits 2-5 to palm (met) Right hand use for mod resist daily activities 50%of the time (met) Quick DASH to < 40 pts Proof Load Mechanic Goals: Wrist flex to 60 deg wrist ext to 60 deg Digit AROM to DPC Optimization Engineer to >45 lb Quick DASH score to < 30 pts Frequency and Duration: The patient will be seen 2x/wk for 3 weeks Treatment Plan: Therapeutic Exercise Therapeutic Activity Home Exercise Program Patient Education Edema Control ADL Training Ultrasound Paraffin Fluidotherapy MHP Joint Mobilization Soft Tissue Mobilization Kinesiotaping Electronically Signed By: Carlene Booth OTR/L Reviewed/agree with student documentation: N/A Therapist:
--- NOTE | 2021-06-26 10:06 | MHC.OT.DC ---
[address] [phone] F: [phone] Occupational Therapy Discharge Note Provider: Dr Neville Diagnosis: Right hand swelling Date of Surgery: 04/03/21 Date of Evaluation: 05/06/21 Date of Discharge: 06/26/21 Treatments to Date: 14 Discharge Status: Improved Function Independent with HEP Discharge Summary: About three months s/p dog bite and I&D to hand. Good progression of range, strength and functional capacity (finished his monty in his home and able to change is car oil). Pt c/o difficulties with WB'ing through RUE during IADLs, also picking up heavier items (bottled water, shopping bags). Ind w/ home exercise and scar management. Electronically Signed By: Carlene Booth OTR/L Reviewed/agree with student documentation: N/A Therapist: Please Sign and return to therapist, thank you for your referral.
== END 2021-06-26 10:10 | disposition home or self-care (01) ==
LOC: HO.OT 09:30
PROVIDERS: PCP Internal Medicine; Visit Provider Internal Medicine
DX: R22.31 Localized swelling, mass and lump, right upper limb (principal)
CPT/HCPCS: 97035; 97110; 97140; 97166

== ENCOUNTER 2021-08-12 12:24 | Emergency (ER) | payer MEDICARE, OTHER, SELFPAY ==
--- NOTE | ~2021-08-12 | XR_ITS ---
EXAMINATION: XR CHEST CLINICAL INFORMATION: Chest discomfort COMPARISON: None TECHNIQUE: Frontal view of the chest was obtained. FINDINGS: The lungs are hypoexpanded but clear. Heart size and pulmonary vascularity is normal. No gross bony abnormality seen. XR/XR chest 1V IMPRESSION: Unremarkable chest exam.
[2021-08-12 12:27] VITALS: BP 128/75; PULSE 78; RESP 18; TEMP 36.6; O2SAT 99; BMI 29.9
--- NOTE | 2021-08-12 12:32 | ECG_ITS ---
Test Reason : CP Blood Pressure : / mmHG Vent. Rate : 067 BPM Atrial Rate : 067 BPM P-R Int : 168 ms QRS Dur : 116 ms QT Int : 404 ms P-R-T Axes : 025 -31 017 degrees QTc Int : 426 ms Sinus rhythm with Premature atrial complexes in a pattern of bigeminy Left axis deviation Left ventricular hypertrophy with QRS widening Abnormal ECG When compared with ECG of 23-MAR-2021 09:22, Left axis deviation is now Present Referred By: Generic ED Physician Electronically Signed By:HEIDI AMADOR
[2021-08-12 13:10] LABS: MANUAL DIFF FLAG NO
[2021-08-12 13:12] LABS: Basophils Percent Auto 0.5 % (0-2); Eosinophils Absolute Auto 0.3 X10*3/uL (0.0-0.4); Eosinophils Percent Auto 3.3 % (0-4); Hematocrit 38.6 % (42-52); Hemoglobin 12.3 g/dl (14.0-18.0); Imm Gran Abs Auto 0.03 X10*3/uL (0.00-0.03); Imm Gran Pct Auto 0.4 % (0.0-0.4); Lymphocytes Absolute Auto 2.2 X10*3/uL (1.2-4.9); Lymphocytes Percent Auto 29.2 % (20-40); Mean Corpuscular HGB Conc 31.9 g/dl (31.0-36.0); Mean Corpuscular Hemoglobin 26.6 pg (27.0-33.0); Mean Corpuscular Volume 83.4 fL (80-98); Mean Platelet Volume 8.7 fL (9.4-12.4); Monocytes Absolute Auto 0.5 X10*3/uL (0.1-1.2); Monocytes Percent Auto 6.5 % (2-11); Neutrophils Absolute Auto 4.5 X10*3/uL (2.0-8.3); Neutrophils Percent Auto 60.1 % (45-73); Platelet Count 308 X10*3/uL (160-400); Red Blood Count 4.63 X10*6/uL (4.60-5.80); Red Cell Distribution Width 14.8 % (11.0-16.0); White Blood Count 7.5 X10*3/uL (4.8-10.8)
[2021-08-12 13:26] LABS: Anion Gap 13 (12-20); Blood Urea Nitrogen 14 mg/dL (9-16); Calcium 9.8 mg/dL (8.4-10.2); Carbon Dioxide 25 mmol/L (22-29); Chloride 108 mmol/L (96-108); Creatinine Clr Calc Pharmacy 98.5; Estimated Glomerular Filt Rate > 60; Glucose Random 123 mg/dL (60-115); Potassium 4.3 mmol/L (3.3-5.1); Sodium 142 mmol/L (135-145)
[2021-08-12 13:27] VITALS: BP 129/77; PULSE 65; RESP 16; O2SAT 100
--- NOTE | 2021-08-12 13:32 | ED_ITS ---
HPI - Chest Pain General Chief Complaint: Chest Pain Stated Complaint: chest pain, abnormal ekg Time Seen by Provider: 08/12/21 13:22 Source: patient Mode of arrival: ambulatory Limitations: no limitations History of Present Illness HPI narrative: 61-year-old male past medical history of HTN, DM, ACD with hx of cardiac cath 04/02 current smoker presents to the emergency department with complaints of chest discomfort, and shortness of breath upon exertion X1 month. He states he has been experiencing these symptoms periodically over the past month. He describes the chest pain as localized to the left side with radiation into his shoulder, stabbing in nature, it lasts a few seconds and then resolves. He says his last episode of stabbing chest pain was Wednesday. He states over the past month he has also been feeling increased shortness of breath, particularly with exertion. He denies fevers, chills, nausea, vomiting, abdominal pain, recent sick contacts. MD complaint: chest heaviness Pertinent past history: coronary artery disease, prior CO and other (Cardiac catheterization on 04/02/2021) Onset (ago): month(s) Timing of current episode: episodic Prior episodes: Yes Onset: during rest and during exertion Pain location: left chest (Radiating into left shoulder) Pain radiation: left scapula Severity: severe Pain scale (0-10): 10 Quality: sharp (Periodically sharp) and dull (The majority of the time) Relieving factors: nothing Exacerbating factors: nothing Associated symptoms: dyspnea (On exertion) Treatment prior to arrival: none Related Data Home Medications Medication Instructions Recorded Confirmed insulin glargine 100 unit/mL (3 42 unit SUBCUT BEDTIME 10/03/20 05/28/21 mL) subcutaneous pen (Lantus Solostar U-100 Insulin) metformin 1,000 mg tablet 1,000 mg BID 10/03/20 05/28/21 omeprazole 20 mg capsule,delayed 20 mg DAILY 10/03/20 05/28/21 release lisinopril 40 mg tablet 40 mg PO DAILY 02/01/21 05/28/21 morphine 30 mg tablet,extended 1 tab PO Q12H 02/01/21 05/28/21 release oxycodone-acetaminophen 5 mg-325 1 tab PO Q8H PRN 02/01/21 05/28/21 mg tablet atorvastatin 80 mg tablet 80 mg PO BEDTIME 02/18/21 05/28/21 ticagrelor 90 mg tablet 90 mg PO BID 02/18/21 05/28/21 omega-3 fatty acids-fish oil 340 1 cap PO TID 03/28/21 05/28/21 mg-1,000 mg capsule (Fish Oil) amlodipine 5 mg tablet 5 mg PO QAM 05/28/21 05/28/21 Previous Rx's Medication Instructions Recorded tramadol 50 mg tablet 50 mg PO TID PRN #10 tab 03/27/21 levofloxacin 500 mg tablet 500 mg PO DAILY 7 Days #7 tab 04/08/21 aspirin 81 mg tablet,delayed 81 mg PO BEDTIME #30 tab 04/29/21 release metoprolol succinate 50 mg 50 mg PO QAM #30 tab 05/29/21 tablet,extended release 24 hr finasteride 5 mg tablet 5 mg PO DAILY 90 Days #90 tab 06/13/21 tamsulosin 0.4 mg capsule 0.4 mg PO BEDTIME 30 Days #90 cap 07/30/21 Allergies Allergy/AdvReac Type Severity Reaction Status Date / Time No Known Allergies Allergy Verified 08/12/21 12:27 [No Known Allergies*] Review of Systems Review of Systems: Constitutional : No Fever, No Chills ENT/Mouth : No sore throat, No Rhinorrhea, No Swallowing Difficulty Eyes: No Eye Pain, No Swelling, No Redness Cardiovascular : positive Chest Pain, positive SOB, No Orthopnea, No Edema Respiratory : No Cough, No Sputum, No Wheezing, positive dyspnea Gastrointestinal : No Nausea, No Vomiting, No Diarrhea, No abdominal Pain, No Hematochezia, No Melena Genitourinary : No Dysuria, No Urinary Frequency, No Hematuria Musculoskeletal : No joint pain, No Myalgias Skin : No Skin Lesions, No rash Neuro : No Weakness, No Numbness, No Dizziness, No Headache All other systems reviewed and are negative PMFSH Past Medical History Medical History Abscess of hand, right Acute coronary syndrome Atherosclerotic cardiovascular disease Cellulitis Diabetes Dog bite of extremity Epidermal cyst Essential hypertension HTN (hypertension) NSTEMI (non-ST elevated myocardial infarction) Smoking Type 2 diabetes mellitus with unspecified complications Surgical History History of cardiac cath (~03/2019) S/P cardiac cath Family History Family History Father No problems noted. Mother Leukemia HTN (hypertension) Social History Social History Household Members: None Housing: Apartment Do you presently have visiting nurse or other home services: No Alcohol intake: never Patient Tobacco Use Status: Former Tobacco user Cigarette Packs Per Day: 0.25 Cigarettes Per Day: 4 Smoked in Last 30 Days: Yes Second Hand Smoke Exposure: No Substance Use Type: Marijuana Substance Use Frequency: Daily Advance Directives: Yes Advance Directives on File: Yes Advance Directives Date on File: 02/04/21 service: No Current occupational status: unemployed Physical Exam Vital Signs: Vital Signs: Last Vital Signs Temp 97.8 F 08/12/21 12:27 Pulse 65 08/12/21 13:27 Resp 16 08/12/21 13:27 BP 129/77 08/12/21 13:27 Pulse Ox 100 08/12/21 13:27 Body Mass Index 29.9 Course Course Course Narrative: Patient continues to say he wants to leave, and does not want to be in the hospital for long. Based off of his laboratory studies there is no acute ischemia, no signs of infection. His EKG shows no significant changes from his past. 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 He states the pain is intermittent in nature, but most of the time he feels chest heaviness/pressure. He states he at times has episodes with stabbing pain that lasts a few seconds. He also states he has been short of breath over the past month, this has been worsening. Shortness of breath physics specially bad upon exertion. Throughout the physical examination he says he would like to leave, because he got sent here by the [facility], they told him that they thought this was something very dangerous and he had to come in. He is stating he does not want an IV at this time, he just wants to get out of here and make sure he is not having a heart attack. It was explained to him that labs must be ordered, an EKG most be done, and it is important for him to stay. He is adamant about leaving, and states he does not want to be here. Upon reviewing previous notes In September 2020 and echo was done which showed an ejection fraction of 50-60. He was also admitted in January for an NSTEMI. Laboratory study show no acute infection, EKG shows no significant changes from previous, no acute ischemia, troponin is 3.6 this is much lower than his previous troponins in the past. Lab Data Result diagrams: 08/12/21 13:02 08/12/21 13:02 Labs: Lab Results 08/12/21 08/12/21 08/12/21 Range/Units 13:02 13:02 13:02 WBC 7.5 (4.8-10.8) X10*3/uL RBC 4.63 (4.60-5.80) X10*6/uL Hgb 12.3 L (14.0-18.0) g/dl Hct 38.6 L (42-52) % MCV 83.4 (80-98) fL MCH 26.6 L (27.0-33.0) pg MCHC 31.9 (31.0-36.0) g/dl RDW 14.8 (11.0-16.0) % Plt Count 308 (160-400) X10*3/uL MPV 8.7 L (9.4-12.4) fL Immature Gran % (Auto) 0.4 (0.0-0.4) % Neut % (Auto) 60.1 (45-73) % Lymph % (Auto) 29.2 (20-40) % [place] % (Auto) 6.5 (2-11) % Eos % (Auto) 3.3 (0-4) % Baso % (Auto) 0.5 (0-2) % Lymph # (Auto) 2.2 (1.2-4.9) X10*3/uL [place] # (Auto) 0.5 (0.1-1.2) X10*3/uL Eos # (Auto) 0.3 (0.0-0.4) X10*3/uL Baso # (Auto) 0.0 (0.0-0.2) X10*3/uL Abs Immat Gran (auto) 0.03 (0.00-0.03) X10*3/uL Absolute Neuts (auto) 4.5 (2.0-8.3) X10*3/uL Absolute Nucleated RBC 0.000 (0.0-0.012) X10*3/uL Nucleated RBC % (auto) 0.0 (0.0-0.2) /100WBC Sodium 142 (135-145) mmol/L Potassium 4.3 (3.3-5.1) mmol/L Chloride 108 (96-108) mmol/L Carbon Dioxide 25 (22-29) mmol/L Anion Gap 13 (12-20) BUN 14 (9-16) mg/dL Creatinine 0.91 (0.5-1.4) mg/dL Estim Creat Clear Calc 98.5 Estimated GFR > 60 Random Glucose 123 H (60-115) mg/dL Calcium 9.8 D (8.4-10.2) mg/dL Troponin I High Sens 3.6 (<3.5-35.0) ng/L Discharge Plan Discharge Clinical Impression: Chest pain Patient Disposition: Home, Self-Care Instructions: Chest Pain (ED) Additional Instructions: Follow-up with your PCP Return to the emergency department with new or worsening symptoms Prescriptions: No Action aspirin 81 mg tablet,delayed release (DR/EC) 81 mg PO BEDTIME Qty: 30 RF: 4 metoprolol succinate 50 mg tablet extended release 24 hr 50 mg PO QAM Qty: 30 RF: 6 tamsulosin 0.4 mg capsule 0.4 mg PO BEDTIME 30 Days Qty: 90 RF: 2 omeprazole 20 mg Capsule,Delayed Release(Dr/Ec) 20 mg DAILY RF: 0 metformin 1,000 mg Tablet 1,000 mg BID RF: 0 Lantus Solostar U-100 Insulin 100 unit/mL (3 mL) Insulin Pen 42 unit SUBCUT BEDTIME RF: 0 morphine 30 mg tablet extended release 1 tab PO Q12H RF: 0 oxycodone-acetaminophen 5-325 mg tablet 1 tab PO Q8H PRN (Reason: pain) RF: 0 lisinopril 40 mg tablet 40 mg PO DAILY RF: 0 amlodipine 5 mg tablet 5 mg PO QAM RF: 0 Fish Oil 340-1,000 mg capsule 1 cap PO TID RF: 0 levofloxacin 500 mg tablet 500 mg PO DAILY 7 Days Qty: 7 RF: 0 ticagrelor 90 mg tablet 90 mg PO BID RF: 0 atorvastatin 80 mg tablet 80 mg PO BEDTIME RF: 0 finasteride 5 mg tablet 5 mg PO DAILY 90 Days Qty: 90 RF: 1 Referrals: Aj Alonso MD [Primary Care Provider] - 2 days Interventions: ED Discharge Assessment Last Done: 08/12/21 13:54 Discharge Date/Time: 08/12/21 13:55
[2021-08-12 13:33] LABS: Troponin-I High Sensitivity 3.6 ng/L (<3.5-35.0)
--- NOTE | 2021-08-12 13:38 | PC.NURSE ---
pt refused IV multiple times. pt was educated on why an IV was needed and pt still refused. Pt states i don't want one
== END 2021-08-12 13:55 | disposition home or self-care (01) ==
PROVIDERS: Emergency Provider Emergency Medicine; PCP Internal Medicine
DX: R07.9 Chest pain, unspecified (principal); R94.31 Abnormal electrocardiogram [ECG] [EKG]; R06.02 Shortness of breath; F12.90 Cannabis use, unspecified, uncomplicated; F17.210 Nicotine dependence, cigarettes, uncomplicated; Z71.6 Tobacco abuse counseling; Z79.899 Other long term (current) drug therapy
CPT/HCPCS: 36415; 71045; 80048; 84484; 85025; 93005; 99283; 99285

== ENCOUNTER → 2021-08-20 13:08 | Outpatient (BNVA) | payer MEDICARE, OTHER, SELFPAY | PROVIDERS: PCP Internal Medicine; Referring Provider Internal Medicine; Visit Provider Internal Medicine | DX: I25.10 Atherosclerotic heart disease of native coronary artery without angina pectoris (principal); I10 Essential (primary) hypertension; F17.200 Nicotine dependence, unspecified, uncomplicated; E11.8 Type 2 diabetes mellitus with unspecified complications | CPT/HCPCS: 93005; 99212 ==

== ENCOUNTER → 2021-09-23 12:52 | Outpatient (REF) | payer MEDICARE, OTHER, SELFPAY ==
--- NOTE | 2021-09-23 12:56 | CA_ITS ---
Transthoracic Echocardiogram Patient (Last, First, Middle): Cruz Ryan L Gender: Male Date of : 1960 Age: 61 Procedure Date: 09/23/2021 Procedure Type: Transthoracic Echocardiogram Location: OP Height: 177.8 cm Weight: 96.16 kg BSA: 2.14 m2 Heart Rate: bpm BP: 118 / 60 mmHg Funeral Professional: Referring MD: Devin Sousa MD Symptoms: I25.10 - Atherosclerotic heart disease of [place] coronary... Study Quality: Good ECG Rhythm: Sinus Conclusions: - The left ventricular systolic function is mildly decreased. The visually estimated ejection fraction is between 45-50%. - The basal inferior segment is hypokinetic. - There is mild dilatation of the ascending aorta measuring 4.00 cm. Findings Left Ventricle Normal left ventricular cavity size. There is mildly increased left ventricular wall thickness. The left ventricular systolic function is mildly decreased. The visually estimated ejection fraction is between 45-50%. There is mild global hypokinesis. Diastolic function is normal for age. Wall Motion Rest Echo Findings The basal inferior segment is hypokinetic. Right Ventricle Mildly increased right ventricular cavity size. There is normal right ventricular systolic function. Atria The left atrium is mildly dilated. The right atrium is normal in size. Aortic Valve There is a normal trileaflet aortic valve. There is no aortic valve stenosis. There is no aortic valve regurgitation. Mitral Valve The mitral valve appears normal. There is no mitral valve stenosis. Trace to mild mitral regurgitation. Pulmonic Valve The pulmonic valve was not well visualized. Tricuspid Valve Normal tricuspid valve structure. There is no tricuspid valve regurgitation. The pulmonary artery systolic pressure is normal. Great Vessels There is mild dilatation of the ascending aorta measuring 4.00 cm. Venous The inferior vena cava is normal in size and collapses greater than 50% with inspiration. Pericardium/Pleural There is no evidence of pericardial effusion. Prior Study Comparison No significant change compared to prior study dated: 02/03/2021. Measurements 2D Linear Measurements IVSd: 1.25 0.6-0.9/0.6-1.0 cm LVIDd: 4.48 3.9-5.3/4.2-5.9 cm LVIDd Index: 2.09 2.4-3.2/2.2-3.1 cm/m2 LVIDs: 3.26 2.0-3.6 cm LVPWd: 1.29 0.7-1.1 cm Ao Root: 3.60 2.1-3.5 cm LA Diam: 4.40 2.7-3.8/3.0-4.0 cm LAIDs Index: 2.06 1.5-2.3 cm/m2 LV Mass: 266.27 67-162/88-224 g LV Mass Index: 124.43 43-95/49-115 g/m2 LVOT Diam: 2.50 3.0+(-)1.3 cm 2D Systolic Function EF 4C: 44.60 >55% EF 2C: 42.50 >55% EF BiP: 44.00 >55% Mitral Valve MV Pk E: 0.85 MV PK A: 0.53 MV Decel Time: 138.00 E/A: 1.60 E'Lateral: 18.00 E'Medial: 8.05 E/E' Med: 10.50 E/E' Lat: 4.70 PHT: 40.00 MVA PHT: 5.50 Decel [place]: 6.14 Aortic Valve AoV Pk Tano: 1.24 AoV Mn Tano: 0.89 AoV VTI: 0.29 AoV Pk Grad: 6.00 Aov Mn Grad: 4.00 JACE Cont.VTI: 3.63 LVOT LVOT Pk Tano: 0.97 LVOT Mn Tano: 0.64 LVOT VTI: 0.22 LVOT Pk Grad: 4.00 LVOT Mn Grad: 2.00 LVOT Diam: 2.50 LVOT Area: 4.91 Diastolic Function MV Pk E: 0.85 MV Pk A: 0.53 E/A: 1.60 E'Medial: 8.05 E/E' Med: 10.50 E' Laterial: 18.00 E/E' Lat: 4.70 Right Ventricle TAPSE (mm): 27.00 TVS' Tano: 17.00 Tricuspid Valve TR Pk Tano: 1.66 TR Pk Grad: 11.00 Great Vessels Aorta Ao Root-2D: 3.60 2.0-3.7 cm Ao Asc: 4.00 2.1-3.4 cm Pulmonary Valve PV Pk Tano: 1.17 Peak PV Grad: 5.00 Updated in Other Vendor System with Status of Final Devin Sousa MD electronically signed on 09/25/2021 11:54:14 AM with status of Final
== END ==
LOC: HO.CARD 12:52
PROVIDERS: PCP Internal Medicine; Visit Provider Internal Medicine
DX: I25.10 Atherosclerotic heart disease of native coronary artery without angina pectoris (principal); I65.23 Occlusion and stenosis of bilateral carotid arteries
CPT/HCPCS: 93306

== ENCOUNTER 2021-11-13 13:18 | Emergency (ER) | payer OTHER, MEDICARE, SELFPAY ==
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
[2021-11-13 13:58] VITALS: BP 135/75; PULSE 91; RESP 16; TEMP 37.2; O2SAT 98; BMI 29.1
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
[2021-11-13 15:42] VITALS: BP 130/83; PULSE 78; RESP 16; O2SAT 98
[2021-11-13 15:42] LABS: MANUAL DIFF FLAG NO
--- NOTE | 2021-11-13 15:43 | PC.NURSE ---
pt talking on phone and pacinf at bedside, in no distress. whenasked about pain pt reports a little in my neck , pt state she had refused a c-collar before. 20 ga iv insered lac and labs sent awaiting gfr cor ct with contrast.
[2021-11-13 15:45] LABS: Basophils Percent Auto 0.5 % (0-2); Eosinophils Absolute Auto 0.1 X10*3/uL (0.0-0.4); Eosinophils Percent Auto 2.4 % (0-4); Hematocrit 37.8 % (42.0-52.0); Hemoglobin 12.2 g/dl (14.0-18.0); Imm Gran Abs Auto 0.02 X10*3/uL (0.00-0.03); Imm Gran Pct Auto 0.3 % (0.0-0.4); Lymphocytes Absolute Auto 2.2 X10*3/uL (1.2-4.9); Lymphocytes Percent Auto 37.8 % (20-40); Mean Corpuscular HGB Conc 32.3 g/dl (31.0-36.0); Mean Corpuscular Hemoglobin 26.8 pg (27.0-33.0); Mean Corpuscular Volume 83.1 fL (80.0-98.0); Mean Platelet Volume 9.1 fL (9.4-12.4); Monocytes Absolute Auto 0.4 X10*3/uL (0.1-1.2); Monocytes Percent Auto 7.4 % (2-11); Neutrophils Percent Auto 51.6 % (45-73); Platelet Count 298 X10*3/uL (160-400); Red Blood Count 4.55 X10*6/uL (4.60-5.80); White Blood Count 5.8 X10*3/uL (4.8-10.8)
[2021-11-13 16:01] LABS: Alanine Aminotransferase 41 U/L (0-40); Albumin Level 4.2 g/dL (3.5-5.0); Alkaline Phosphatase 72 U/L (39-117); Anion Gap 9 (12-20); Aspartate Amino Transferase 24 U/L (5-37); Bilirubin Direct 0.4 mg/dL (0.0-0.5); Blood Urea Nitrogen 13 mg/dL (9-16); Calcium 9.2 mg/dL (8.4-10.2); Carbon Dioxide 28 mmol/L (22-29); Chloride 107 mmol/L (96-108); Creatinine Clr Calc Pharmacy 102.4; Estimated Glomerular Filt Rate > 60; Glucose Random 153 mg/dL (60-115); Lipase 41 U/L (8-78); Magnesium 1.7 mg/dL (1.6-2.6); Potassium 3.8 mmol/L (3.3-5.1); Sodium 140 mmol/L (135-145); Total Protein 7.5 g/dL (6.5-8.0)
[2021-11-13] MEDS: iohexoL 350 MG/ML 100 ML INFUS..BTL IV (17:05)
[2021-11-13 17:11] LABS: COVID-19 Test Positive (Negative); IDNOW Serial# 9DD0AD1C
[2021-11-13 18:06] LABS: Prothrombin Time 11.1 SEC (9.9-13.0)
[2021-11-13 18:09] LABS: Partial Thromboplastin Time 34.9 SEC (24.1-38.0)
== END 2021-11-13 19:27 | disposition home or self-care (01) ==
PROVIDERS: Emergency Medicine; Emergency Provider Emergency Medicine Emergency Medical Services; PCP Internal Medicine
DX: S00.81XA Abrasion of other part of head, initial encounter (principal); M54.50 Low back pain, unspecified; M54.2 Cervicalgia; R10.2 Pelvic and perineal pain; G44.309 Post-traumatic headache, unspecified, not intractable; V43.52XA Car driver injured in collision with other type car in traffic accident, initial encounter; Y93.9 Activity, unspecified; Y92.410 Unspecified street and highway as the place of occurrence of the external cause; Y99.9 Unspecified external cause status; F17.210 Nicotine dependence, cigarettes, uncomplicated; Z71.6 Tobacco abuse counseling; F12.90 Cannabis use, unspecified, uncomplicated; Z20.822 Contact with and (suspected) exposure to COVID-19; Z79.899 Other long term (current) drug therapy
CPT/HCPCS: 36415; 70450; 70486; 71260; 72125; 74177; 80048; 80076; 83690; 83735; 85025; 85610; 85730; 87635; 93005; 99283; 99284; Q9967

== ENCOUNTER → 2021-11-19 10:15 | Outpatient (BNVA) | payer MEDICARE, OTHER, SELFPAY | PROVIDERS: PCP Internal Medicine; Referring Provider Internal Medicine; Visit Provider Internal Medicine | DX: I25.10 Atherosclerotic heart disease of native coronary artery without angina pectoris (principal); I10 Essential (primary) hypertension; E11.8 Type 2 diabetes mellitus with unspecified complications; F17.210 Nicotine dependence, cigarettes, uncomplicated | CPT/HCPCS: 99212 ==

== ENCOUNTER 2022-02-16 13:15 | Outpatient (REF) | payer MEDICARE, SELFPAY | END 2022-02-16 13:16 | disposition home or self-care (01) | LOC: HO.US 13:15 | PROVIDERS: PCP Internal Medicine; Visit Provider Urology | DX: Z13.89 Encounter for screening for other disorder (principal) ==

== ENCOUNTER → 2022-08-18 15:20 | Outpatient (BNVA) | payer MEDICARE, SELFPAY | PROVIDERS: PCP Internal Medicine; Visit Provider Urology | DX: N40.1 Benign prostatic hyperplasia with lower urinary tract symptoms (principal); N13.8 Other obstructive and reflux uropathy; R35.1 Nocturia; R35.0 Frequency of micturition; N52.9 Male erectile dysfunction, unspecified | CPT/HCPCS: 99212 ==

== ENCOUNTER 2022-10-30 17:11 | Emergency (ER) | payer MEDICARE, SELFPAY ==
--- NOTE | ~2022-10-30 | XR_ITS ---
EXAMINATION: CHEST 2 VIEWS CLINICAL INFORMATION: sob/cough . COMPARISON: 08/12/2021. TECHNIQUE: PA and lateral views of the chest obtained. FINDINGS: The lungs are well expanded. No focal infiltrate, effusion, edema, or pneumothorax. Cardiac and mediastinal silhouettes are within normal limits for technique. No acute bony abnormality seen XR/XR chest 2V IMPRESSION: No evidence of acute disease
[2022-10-30 17:45] VITALS: BP 132/88; PULSE 100; RESP 18; TEMP 36.9; O2SAT 97; BMI 30.1
--- NOTE | 2022-10-30 17:46 | ED.URI ---
HPI - URI/Sore Throat General Chief Complaint: Upper Respiratory Symptoms <LAURA Zuniga - Last Filed: 10/30/22 17:51> Stated Complaint: flu like symptoms,stated passed outx2 <LAURA Zuniga - Last Filed: 10/30/22 17:51> Time Seen by Provider: 10/30/22 19:33 <LAURA Zuniga - Last Filed: 10/30/22 17:51> Source: patient <LAURA Colindres - Last Filed: 10/30/22 21:39> Mode of arrival: ambulatory <LAURA Colindres - Last Filed: 10/30/22 21:39> Limitations: no limitations <LAURA Colindres Last Filed: 10/30/22 21:39> History of Present Illness HPI Narrative: Patient is a 62 year old assigned male at with a history of HTN and DM presenting to the emergency department today feeling generally unwell. Patient states that his roommates at home have been sick and he believes he has caught what they had. Patient denies any dizziness, lightheadedness, abdominal pain, nausea, vomiting, fever, chills, blurry vision, double vision, loss of vision, chest pain, difficulty breathing, shortness of breath, back pain, night sweats, pain with urination, increased urinary frequency, increased urinary urgency, blood in his urine or stool, syncope or a near syncopal episode, recent trauma or falls, bowel incontinence, bladder incontinence, bowel retention, bladder retention, or any other complaints at this time. <LAURA Colindres - Last Filed: 10/30/22 21:39> Consistency: constant <LAURA Colindres - Last Filed: 10/30/22 21:39> Severity: mild <LAURA Colindres Last Filed: 10/30/22 21:39> Pain scale (0-10): 3 <LAURA Colindres Last Filed: 10/30/22 21:39> Able to tolerate fluids by mouth: Yes <LAURA Colindres - Last Filed: 10/30/22 21:39> Exacerbating factors: nothing <LAURA Colindres Last Filed: 10/30/22 21:39> Relieving factors: nothing <LAURA Colindres - Last Filed: 10/30/22 21:39> Context: sick contacts <LAURA Colindres - Last Filed: 10/30/22 21:39> Treatments prior to arrival: none <LAURA Colindres - Last Filed: 10/30/22 21:39> Related Data Home Medications: Home Medications Medication Instructions Recorded Confirmed insulin glargine 100 unit/mL (3 42 unit subcut BEDTIME 10/03/20 11/19/21 mL) subcutaneous pen (Lantus Solostar U-100 Insulin) metformin 1,000 mg tablet 1,000 mg BID 10/03/20 11/19/21 omeprazole 20 mg capsule,delayed 20 mg DAILY 10/03/20 11/19/21 release lisinopril 40 mg tablet 40 mg PO DAILY 02/01/21 11/19/21 morphine 30 mg tablet,extended 1 tab PO Q12H 02/01/21 11/19/21 release oxycodone-acetaminophen 5 mg-325 1 tab PO Q8H PRN pain 02/01/21 11/19/21 mg tablet atorvastatin 80 mg tablet 80 mg PO BEDTIME 02/18/21 11/19/21 ticagrelor 90 mg tablet 90 mg PO BID 02/18/21 11/19/21 omega-3 fatty acids-fish oil 340 1 cap PO TID 03/28/21 11/19/21 mg-1,000 mg capsule (Fish Oil) amlodipine 5 mg tablet 5 mg PO QAM 05/28/21 11/19/21 Previous Rx's Medication Instructions Recorded tramadol 50 mg tablet 50 mg PO TID PRN pain #10 tabs 03/27/21 aspirin 81 mg tablet,delayed 81 mg PO BEDTIME #30 ea 07/27/22 release finasteride 5 mg tablet 5 mg PO DAILY 90 days #90 tabs 08/18/22 tadalafil 5 mg tablet 5 mg PO DAILY sexual activity 90 08/18/22 days #90 tabs metoprolol succinate 50 mg 50 mg PO QPM #30 tabs 09/30/22 tablet,extended release 24 hr terazosin 5 mg capsule 5 mg PO BEDTIME 30 days #30 caps 10/06/22 <LAURA Zuniga - Last Filed: 10/30/22 17:51> Allergies/Adverse Reactions: Allergies Allergy/AdvReac Type Severity Reaction Status Date / Time No Known Allergies Allergy Verified 08/13/22 15:07 [No Known Allergies*] <LAURA Zuniga - Last Filed: 10/30/22 17:51> Review of Systems Constitutional: Constitutional: Reports no additional constitutional complaints, Denies chills, Denies fever(s) and Denies night sweats <LAURA Colindres Last Filed: 10/30/22 21:39> Eyes: Eyes: Reports no additional eye complaints, Denies blurry vision, Denies change in vision, Denies diplopia, Denies eye discharge, Denies loss of vision and Denies eye pain <LAURA Colindres - Last Filed: 10/30/22 21:39> ENT: Denies dizziness <LAURA Colindres - Last Filed: 10/30/22 21:39> Cardiovascular: Cardiovascular: Reports no additional cardiovascular complaints, Denies chest pain, Denies lightheadedness, Denies Loss of Consciousness and Denies dyspnea <LAURA Colindres - Last Filed: 10/30/22 21:39> Respiratory: Respiratory: Reports no additional respiratory complaints and Denies dyspnea <LAURA Colindres - Last Filed: 10/30/22 21:39> Gastrointestinal: Gastrointestinal: Reports no additional gastrointestinal complaints, Denies abdominal pain, Denies melena, Denies hematochezia, Denies change in bowel habits and Denies change in stool character <LAURA Colindres - Last Filed: 10/30/22 21:39> Genitourinary: Genitourinary: Reports no additional male genitourinary complaints, Denies hematuria, Denies oliguria, Denies difficulty urinating, Denies dysuria, Denies urinary frequency, Denies urinary hesitancy, Denies urinary incontinence and Denies urinary urgency <LAURA Colindres Last Filed: 10/30/22 21:39> Musculoskeletal: Musculoskeletal: Reports no additional musculoskeletal complaints, Denies numbness and Denies tingling <LAURA Colindres Last Filed: 10/30/22 21:39> Neurologic: Denies dizziness, Denies loss of vision, Denies numbness and Denies tingling <LAURA Colindres - Last Filed: 10/30/22 21:39> Psychiatric: Psychiatric: Reports no additional psychiatric complaints <LAURA Colindres - Last Filed: 10/30/22 21:39> Endocrine: Endocrine: Reports no additional endocrine complaints <LAURA Colindres - Last Filed: 10/30/22 21:39> Hematologic/Lymphatic: Hematologic/Lymphatic: Reports no additional hematologic/lymphatic complaints <LAURA Colindres - Last Filed: 10/30/22 21:39> Allergic/Immunologic: Allergic/Immunologic: Reports no additional allergic/immunologic complaints <LAURA Colindres - Last Filed: 10/30/22 21:39> PMFSH Past Medical History Attestation statement: The following information was validated with the patient. <LAURA Colindres - Last Filed: 10/30/22 21:39> Source: old records reviewed and nursing notes reviewed <LAURA Colindres - Last Filed: 10/30/22 21:39> Medical History: Medical History Abscess of hand, right Acute coronary syndrome Atherosclerotic cardiovascular disease Cellulitis Diabetes Dog bite of extremity Epidermal cyst Essential hypertension HTN (hypertension) NSTEMI (non-ST elevated myocardial infarction) Smoking Type 2 diabetes mellitus with unspecified complications <LAURA Zuniga - Last Filed: 10/30/22 17:51> Surgical History: Surgical History History of cardiac cath (~03/2019) S/P cardiac cath <LAURA Zuniga - Last Filed: 10/30/22 17:51> Family History Family History: Family History Father No problems noted. Mother Leukemia HTN (hypertension) <LAURA Zuniga - Last Filed: 10/30/22 17:51> Social History Social History: Social History Household Members: None Housing: Apartment Do you presently have visiting nurse or other home services: No Alcohol intake: never Patient Tobacco Use Status: Current everyday Tobacco user Cigarette Packs Per Day: 0.25 Cigarettes Per Day: 4 Smoked in Last 30 Days: Yes Second Hand Smoke Exposure: No Use of substances other than those prescribed or required for medical reasons: No Substance Use Type: Marijuana Advance Directives: Yes Advance Directives on File: Yes Advance Directives Date on File: 02/04/21 service: No Current occupational status: unemployed <LAURA Zuniga - Last Filed: 10/30/22 17:51> Physical Exam Vital Signs: Vital Signs: Last Vital Signs Temp 99.2 F 10/30/22 19:41 Pulse 94 10/30/22 19:41 Resp 12 10/30/22 19:41 BP 141/75 H 10/30/22 19:41 Pulse Ox 97 10/30/22 19:41 O2 Del Method 10/30/22 19:41 BMI result Body Mass Index 30.1 <LAURA Zuniga - Last Filed: 10/30/22 17:51> Vital Signs: Last Vital Signs Temp 99.2 F 10/30/22 19:41 Pulse 94 10/30/22 19:41 Resp 10/30/22 19:41 BP 141/75 H 10/30/22 19:41 Pulse Ox 97 10/30/22 19:41 O2 Del Method 10/30/22 19:41 BMI result Body Mass Index 30.1 <LAURA Colindres - Last Filed: 10/30/22 21:39> Const: General: cooperative, no acute distress, alert and awake <LAURA Colindres - Last Filed: 10/30/22 21:39> Nutritional Appearance: well nourished <LAURA Colindres - Last Filed: 10/30/22 21:39> Orientation/consciousness: patient oriented x3 <LAURA Colindres - Last Filed: 10/30/22 21:39> Limitations: no limitations <LAURA Colindres - Last Filed: 10/30/22 21:39> HEENT: Head: Yes normal to inspection and Yes atraumatic <LAURA Colindres - Last Filed: 10/30/22 21:39> Ears: hearing grossly normal bilaterally and external ears normal <LAURA Colindres - Last Filed: 10/30/22 21:39> General nose exam: Normal external nose present, no nasal discharge noted and no epistaxis <LAURA Colindres - Last Filed: 10/30/22 21:39> Face and sinus: Yes normal facial exam, No abrasion and No laceration <Melly Green NM - Last Filed: 10/30/22 21:39> Mouth: Normal oral and palatal mucosa present, no drooling and no muffled voice <Melly Green NM - Last Filed: 10/30/22 21:39> Eyes: General: appearance normal, both eyes and all related structures <Melly Green NM - Last Filed: 10/30/22 21:39> Periorbital: periorbital findings normal <Melly Green NM - Last Filed: 10/30/22 21:39> Eyelids: Yes eyelids normal <Melly Green NM - Last Filed: 10/30/22 21:39> Conjunctivae: conjunctivae normal <Melly Green NM - Last Filed: 10/30/22 21:39> Pupils: Equal, round and reactive pupils present <Melly Green NM - Last Filed: 10/30/22 21:39> EOM: EOMs intact bilaterally <Melly Green NM - Last Filed: 10/30/22 21:39> Neck: Neck: Yes normal visual inspection, Yes full ROM and Yes no lymphadenopathy <Melly Green NM - Last Filed: 10/30/22 21:39> Chest: Chest palpation & inspection: normal inspection of the chest <Melly Green NM - Last Filed: 10/30/22 21:39> Resp: Effort & Inspection: normal respiratory effort and able to speak in complete sentences <Melly Green NM - Last Filed: 10/30/22 21:39> Auscultation: clear to auscultation bilaterally <Melly Green NM - Last Filed: 10/30/22 21:39> Cardio: Rate: regular rate <Melly Green NM - Last Filed: 10/30/22 21:39> Rhythm: regular rhythm <Melly Green NM - Last Filed: 10/30/22 21:39> GI: Inspection: Yes normal to inspection <Melly GreenLAURA - Last Filed: 10/30/22 21:39> Palpation (GI): Soft to palpation, not firm, nontender, no guarding and not rigid <Melly JenningsLAURA alex - Last Filed: 10/30/22 21:39> Neuro: General: patient oriented x3 and moves all extremities <Melly JenningsLAURA alex - Last Filed: 10/30/22 21:39> Cranial nerves: Yes Equal, round and reactive pupils present <Melly JenningsLAURA alex - Last Filed: 10/30/22 21:39> Cognition (Neuro): normal cognition <Mellydipesh JenningsLAURA alex - Last Filed: 10/30/22 21:39> Motor exam (neuro): 5/5 motor strength present throughout <Melly JenningsLAURA alex - Last Filed: 10/30/22 21:39> Sensory Exam: Normal double simultaneous stimulation for sensation <Melly JenningsLUARA alex - Last Filed: 10/30/22 21:39> Coordination: [id number] test normal <Mellydipesh JenningsLAURA alex - Last Filed: 10/30/22 21:39> Extrem: General: Yes normal to inspection, Yes full ROM and Yes capillary refill normal <Melly JenningsLAURA alex - Last Filed: 10/30/22 21:39> Psych: Appearance: grossly normal <Mellydipesh JenningsLAURA alex - Last Filed: 10/30/22 21:39> Mental Status: mental status grossly normal <Mellydipesh JenningsLAURA alex - Last Filed: 10/30/22 21:39> Affect: normal affect <Mellydipesh JenningsLAURA alex - Last Filed: 10/30/22 21:39> Attitude: cooperative <LAURA Colindres - Last Filed: 10/30/22 21:39> Thought process: Normal thought process present <Melly GreenLAURA alex - Last Filed: 10/30/22 21:39> Thought content: Normal thought content present <LAURA Colindres - Last Filed: 10/30/22 21:39> Insight: Good insight present (Psych) <LAURA Colindres - Last Filed: 10/30/22 21:39> Course Course Course Narrative: YING-17:45PM - 62 yoM fevers, nonproductive cough, chest tightness when he coughs. Denies any dizziness, change in vision, CP/SOB, nausea/vomiting/diarrhea abdominal pain or any other symptoms complaints or concerns at this time. Reports that multiple roommates he lives with has similar symptoms. Patient is stable. Normal steady gait. Not in any acute distress. Vital signs are stable. Plan: Labs, EKG, COVID/RSV/flu swab, strep and chest x-ray. Patient will be sent back to the waiting room to be evaluated in [facility] [place]. <LAURA Zuniga - Last Filed: 10/30/22 17:51> Medical Decision Making Medical Decision Making [facility] Narrative: Patient is a 62 year old assigned male at with a history of HTN and DM presenting to the emergency department today feeling generally unwell. Patient's physical exam was unremarkable. Patient's blood work was unremarkable. Patient's EKG was unremarkable. Patient's chest x-ray showed no acute process. I explained my physical exam findings as well as all test results to the patient. I answered all questions asked by the patient. I stressed the importance of the patient taking his medication as prescribed. I stressed the importance of the patient following up with his primary care provider. I stressed the importance of the patient returning to the emergency department immediately if his symptoms were to worsen or if he were to develop any dizziness, shortness of breath, difficulty breathing, chest pain, blurry vision, loss of vision, nausea, vomiting, abdominal pain, fever, chills, back pain, or any other complaints. Patient verbalized agreement and understanding with this treatment plan and discharge. <LAURA Colindres - Last Filed: 10/30/22 21:39> Differential Diagnosis Differential Diagnoses: The differential diagnosis associated with the presentation includes <LAURA Colindres - Last Filed: 10/30/22 21:39> influenza, COVID-19 <LAURA Colindres - Last Filed: 10/30/22 21:39> Lab Data [facility] Lab Attestation statement: I reviewed the patient's lab results. <LAURA Colindres - Last Filed: 10/30/22 21:39> Result Diagrams: : 10/30/22 19:08 10/30/22 19:08 <LAURA Zuniga - Last Filed: 10/30/22 17:51> Labs: Lab Results 10/30/22 10/30/22 10/30/22 Range/Units 17:49 19:08 19:08 WBC 9.5 (4.8-10.8) X10*3/uL RBC 4.67 (4.60-5.80) X10*6/uL Hgb 12.2 L (14.0-18.0) g/dl Hct 37.6 L (42.0-52.0) % MCV 80.5 (80.0-98.0) fL MCH 26.1 L (27.0-33.0) pg MCHC 32.4 (31.0-36.0) g/dl RDW 15.4 (11.0-16.0) % Plt Count 297 (160-400) X10*3/uL MPV 8.9 L (9.4-12.4) fL Immature Gran % (Auto) 0.2 (0.0-0.4) % Neut % (Auto) 79.1 H (45-73) % Lymph % (Auto) 11.0 L (20-40) % Lane % (Auto) 9.1 (2-11) % Eos % (Auto) 0.1 (0-4) % Baso % (Auto) 0.5 (0-2) % Lymph # (Auto) 1.0 L (1.2-4.9) X10*3/uL Lane # (Auto) 0.9 (0.1-1.2) X10*3/uL Eos # (Auto) 0.0 (0.0-0.4) X10*3/uL Baso # (Auto) 0.1 (0.0-0.2) X10*3/uL Abs Immat Gran (auto) 0.02 (0.00-0.03) X10*3/uL Absolute Neuts (auto) 7.5 (2.0-8.3) x10*3/uL Absolute Nucleated RBC 0.000 (0.0-0.012) X10*3/uL Nucleated RBC % (auto) 0.0 (0.0-0.2) /100WBC PT 13.8 H (10.0-13.1) SEC INR 1.2 H (0.9-1.1) Sodium (135-145) mmol/L Potassium (3.3-5.1) mmol/L Chloride (96-108) mmol/L Carbon Dioxide (22-29) mmol/L Anion Gap (12-20) BUN (9-16) mg/dL Creatinine (0.5-1.4) mg/dL Estim Creat Clear Calc Estimated GFR Random Glucose (60-115) mg/dL Calcium (8.4-10.2) mg/dL Magnesium (1.6-2.6) mg/dL Total Bilirubin (0.0-1.0) mg/dL AST (5-37) U/L ALT (0-40) U/L Alkaline Phosphatase (39-117) U/L Troponin I High Sens (<3.5-35.0) ng/L Total Protein (6.5-8.0) g/dL Albumin (3.5-5.0) g/dL Influenza Type A (PCR) POSITIVE A (Negative) Influenza Type B (PCR) NEGATIVE (Negative) RSV RNA Qual (PCR) NEGATIVE (Negative) SARS-CoV-2 RNA (RT-PCR) POSITIVE A (Negative) 10/30/22 10/30/22 Range/Units 19:08 20:15 WBC (4.8-10.8) X10*3/uL RBC (4.60-5.80) X10*6/uL Hgb (14.0-18.0) g/dl Hct (42.0-52.0) % MCV (80.0-98.0) fL MCH (27.0-33.0) pg MCHC (31.0-36.0) g/dl RDW (11.0-16.0) % Plt Count (160-400) X10*3/uL MPV (9.4-12.4) fL Immature Gran % (Auto) (0.0-0.4) % Neut % (Auto) (45-73) % Lymph % (Auto) (20-40) % Lane % (Auto) (2-11) % Eos % (Auto) (0-4) % Baso % (Auto) (0-2) % Lymph # (Auto) (1.2-4.9) X10*3/uL Lane # (Auto) (0.1-1.2) X10*3/uL Eos # (Auto) (0.0-0.4) X10*3/uL Baso # (Auto) (0.0-0.2) X10*3/uL Abs Immat Gran (auto) (0.00-0.03) X10*3/uL Absolute Neuts (auto) (2.0-8.3) x10*3/uL Absolute Nucleated RBC (0.0-0.012) X10*3/uL Nucleated RBC % (auto) (0.0-0.2) /100WBC PT (10.0-13.1) SEC INR (0.9-1.1) Sodium 137 (135-145) mmol/L Potassium 3.8 (3.3-5.1) mmol/L Chloride 103 (96-108) mmol/L Carbon Dioxide 24 (22-29) mmol/L Anion Gap 14 (12-20) BUN 13 (9-16) mg/dL Creatinine 0.95 (0.5-1.4) mg/dL Estim Creat Clear Calc 93.3 Estimated GFR > 60 Random Glucose 131 H (60-115) mg/dL Calcium 9.6 (8.4-10.2) mg/dL Magnesium 1.6 (1.6-2.6) mg/dL Total Bilirubin 0.9 (0.0-1.0) mg/dL AST 43 H (5-37) U/L ALT 45 H (0-40) U/L Alkaline Phosphatase 71 (39-117) U/L Troponin I High Sens 8.1 (<3.5-35.0) ng/L Total Protein 7.6 (6.5-8.0) g/dL Albumin 4.3 (3.5-5.0) g/dL Influenza Type A (PCR) (Negative) Influenza Type B (PCR) (Negative) RSV RNA Qual (PCR) (Negative) SARS-CoV-2 RNA (RT-PCR) (Negative) <LAURA Zuniga - Last Filed: 10/30/22 17:51> Lab Results 10/30/22 10/30/22 10/30/22 Range/Units 17:49 19:08 19:08 WBC 9.5 (4.8-10.8) X10*3/uL RBC 4.67 (4.60-5.80) X10*6/uL Hgb 12.2 L (14.0-18.0) g/dl Hct 37.6 L (42.0-52.0) % MCV 80.5 (80.0-98.0) fL MCH 26.1 L (27.0-33.0) pg MCHC 32.4 (31.0-36.0) g/dl RDW 15.4 (11.0-16.0) % Plt Count 297 (160-400) X10*3/uL MPV 8.9 L (9.4-12.4) fL Immature Gran % (Auto) 0.2 (0.0-0.4) % Neut % (Auto) 79.1 H (45-73) % Lymph % (Auto) 11.0 L (20-40) % Lane % (Auto) 9.1 (2-11) % Eos % (Auto) 0.1 (0-4) % Baso % (Auto) 0.5 (0-2) % Lymph # (Auto) 1.0 L (1.2-4.9) X10*3/uL Lane # (Auto) 0.9 (0.1-1.2) X10*3/uL Eos # (Auto) 0.0 (0.0-0.4) X10*3/uL Baso # (Auto) 0.1 (0.0-0.2) X10*3/uL Abs Immat Gran (auto) 0.02 (0.00-0.03) X10*3/uL Absolute Neuts (auto) 7.5 (2.0-8.3) x10*3/uL Absolute Nucleated RBC 0.000 (0.0-0.012) X10*3/uL Nucleated RBC % (auto) 0.0 (0.0-0.2) /100WBC PT 13.8 H (10.0-13.1) SEC INR 1.2 H (0.9-1.1) Sodium (135-145) mmol/L Potassium (3.3-5.1) mmol/L Chloride (96-108) mmol/L Carbon Dioxide (22-29) mmol/L Anion Gap (12-20) BUN (9-16) mg/dL Creatinine (0.5-1.4) mg/dL Estim Creat Clear Calc Estimated GFR Random Glucose (60-115) mg/dL Calcium (8.4-10.2) mg/dL Magnesium (1.6-2.6) mg/dL Total Bilirubin (0.0-1.0) mg/dL AST (5-37) U/L ALT (0-40) U/L Alkaline Phosphatase (39-117) U/L Troponin I High Sens (<3.5-35.0) ng/L Total Protein (6.5-8.0) g/dL Albumin (3.5-5.0) g/dL Influenza Type A (PCR) POSITIVE A (Negative) Influenza Type B (PCR) NEGATIVE (Negative) RSV RNA Qual (PCR) NEGATIVE (Negative) SARS-CoV-2 RNA (RT-PCR) POSITIVE A (Negative) 10/30/22 10/30/22 Range/Units 19:08 20:15 WBC (4.8-10.8) X10*3/uL RBC (4.60-5.80) X10*6/uL Hgb (14.0-18.0) g/dl Hct (42.0-52.0) % MCV (80.0-98.0) fL MCH (27.0-33.0) pg MCHC (31.0-36.0) g/dl RDW (11.0-16.0) % Plt Count (160-400) X10*3/uL MPV (9.4-12.4) fL Immature Gran % (Auto) (0.0-0.4) % Neut % (Auto) (45-73) % Lymph % (Auto) (20-40) % Lane % (Auto) (2-11) % Eos % (Auto) (0-4) % Baso % (Auto) (0-2) % Lymph # (Auto) (1.2-4.9) X10*3/uL Lane # (Auto) (0.1-1.2) X10*3/uL Eos # (Auto) (0.0-0.4) X10*3/uL Baso # (Auto) (0.0-0.2) X10*3/uL Abs Immat Gran (auto) (0.00-0.03) X10*3/uL Absolute Neuts (auto) (2.0-8.3) x10*3/uL Absolute Nucleated RBC (0.0-0.012) X10*3/uL Nucleated RBC % (auto) (0.0-0.2) /100WBC PT (10.0-13.1) SEC INR (0.9-1.1) Sodium 137 (135-145) mmol/L Potassium 3.8 (3.3-5.1) mmol/L Chloride 103 (96-108) mmol/L Carbon Dioxide 24 (22-29) mmol/L Anion Gap 14 (12-20) BUN 13 (9-16) mg/dL Creatinine 0.95 (0.5-1.4) mg/dL Estim Creat Clear Calc 93.3 Estimated GFR > 60 Random Glucose 131 H (60-115) mg/dL Calcium 9.6 (8.4-10.2) mg/dL Magnesium 1.6 (1.6-2.6) mg/dL Total Bilirubin 0.9 (0.0-1.0) mg/dL AST 43 H (5-37) U/L ALT 45 H (0-40) U/L Alkaline Phosphatase 71 (39-117) U/L Troponin I High Sens 8.1 (<3.5-35.0) ng/L Total Protein 7.6 (6.5-8.0) g/dL Albumin 4.3 (3.5-5.0) g/dL Influenza Type A (PCR) (Negative) Influenza Type B (PCR) (Negative) RSV RNA Qual (PCR) (Negative) SARS-CoV-2 RNA (RT-PCR) (Negative) <LAURA Colindres - Last Filed: 10/30/22 21:39> Independent Interpretation I performed an independent interpretation of an: EKG <LUARA Colindres - Last Filed: 10/30/22 21:39> Interpretation: Vent. Rate: 104 BPM ? ? Atrial Rate: 104 BPM P-R Int: 140 ms? QRS Dur: 116 ms QT Int: 356 ms ? ? ? P-R-T Axes: 040 -28 102 degrees QTc Int: 468 ms ? Sinus tachycardia Left ventricular hypertrophy with QRS widening and repolarization abnormality ( R in aVL , Kaleb product ) Abnormal ECG When compared with ECG of 30-DEC-2021 14:27, No significant change was found DD/ 11 <LAURA Colindres - Last Filed: 10/30/22 21:39> Radiology Impression Discussion of test interpretation with radiology: I have reviewed the radiologist's reading. <LAURA Colindres - Last Filed: 10/30/22 21:39> Radiologist Impression: EXAMINATION: CHEST 2 VIEWS CLINICAL INFORMATION: sob/cough . COMPARISON: 08/12/2021. TECHNIQUE: PA and lateral views of the chest obtained.? FINDINGS: The lungs are well expanded. No focal infiltrate, effusion, edema, or pneumothorax. Cardiac and mediastinal silhouettes are within normal limits for technique. No acute bony abnormality seen XR/XR chest 2V IMPRESSION: No evidence of acute disease Dictated By: Andi Leary MD Signed By: Electronically signed by Andi Leary MD 10/30/221913 <LAURA Colindres - Last Filed: 10/30/22 21:39> Discharge Plan Discharge Clinical Impression: COVID-19, Influenza A <LAURA Zuniga - Last Filed: 10/30/22 17:51> Patient Disposition: Home, Self-Care <LAURA Zuniga - Last Filed: 10/30/22 17:51> Instructions: Influenza (ED), COVID-19 (Coronavirus Disease 2019) (ED) <LAURA Zuniga - Last Filed: 10/30/22 17:51> Additional Instructions: Follow up with your primary care provider. Return to the emergency department immediately if your symptoms worsen or if you develop any dizziness, shortness of breath, difficulty breathing, chest pain, blurry vision, loss of vision, nausea, vomiting, abdominal pain, fever, chills, back pain, or any other complaints. <LAURA Zuniga - Last Filed: 10/30/22 17:51> Prescriptions: No Action aspirin 81 mg tablet,delayed release (DR/EC) 81 mg PO BEDTIME Qty: 30 3RF Rx Instructions: Please call to schedule a follow up with Dr. Sousa for next year. metoprolol succinate 50 mg tablet extended release 24 hr 50 mg PO QPM Qty: 30 3RF terazosin 5 mg capsule 5 mg PO BEDTIME 30 Days Qty: 30 0RF omeprazole 20 mg Capsule,Delayed Release(Dr/Ec) 20 mg DAILY metformin 1,000 mg Tablet 1,000 mg BID Lantus Solostar U-100 Insulin 100 unit/mL (3 mL) Insulin Pen 42 unit SUBCUT BEDTIME morphine 30 mg tablet extended release 1 tab PO Q12H oxycodone-acetaminophen 5-325 mg tablet 1 tab PO Q8H PRN (Reason: pain) lisinopril 40 mg tablet 40 mg PO DAILY amlodipine 5 mg tablet 5 mg PO QAM Fish Oil 340-1,000 mg capsule 1 cap PO TID ticagrelor 90 mg tablet 90 mg PO BID atorvastatin 80 mg tablet 80 mg PO BEDTIME finasteride 5 mg tablet 5 mg PO DAILY 90 Days Qty: 90 1RF tadalafil 5 mg tablet 5 mg PO DAILY 90 Days Qty: 90 1RF <LAURA Zuniga - Last Filed: 10/30/22 17:51> Referrals: [facility] [[place] Group] (Call to establish and follow up with a primary care provider. If you already have a primary care provider, please follow up with them. ) [facility] [place] [Provider Group] (Call to establish and follow up with a primary care provider. If you already have a primary care provider, please follow up with them. ) [facility] [Provider Group] (Call to establish and follow up with a primary care provider. If you already have a primary care provider, please follow up with them. ) <LAURA Zuniga - Last Filed: 10/30/22 17:51> Stand Alone Forms: Work/School Release <LAURA Zuniga - Last Filed: 10/30/22 17:51> Interventions: ED Discharge Assessment Last Done: 10/30/22 21:12 <LAURA Zuniga - Last Filed: 10/30/22 17:51> Discharge Date/Time: 10/30/22 21:12 <LAURA Zuniga - Last Filed: 10/30/22 17:51> Print Language: Khmer <LAURA Zuniga - Last Filed: 10/30/22 17:51>
--- NOTE | 2022-10-30 17:50 | ECG_ITS ---
Test Reason : Cough/chest tightness Blood Pressure : / mmHG Vent. Rate : 104 BPM Atrial Rate : 104 BPM P-R Int : 140 ms QRS Dur : 116 ms QT Int : 356 ms P-R-T Axes : 040 -28 102 degrees QTc Int : 468 ms Sinus tachycardia Left ventricular hypertrophy with QRS widening and repolarization abnormality ( R in aVL , [place] product ) Abnormal ECG When compared with ECG of 13-NOV-2021 14:27, No significant change was found Referred By: Flora Trujillo Electronically Signed By:MEL BLANCO
[2022-10-30 18:33] LABS: Influenza A PCR POSITIVE (Negative); Influenza B PCR NEGATIVE (Negative); Resp Syncy Virus RNA Qual PCR NEGATIVE (Negative); SARS COV2 PCR INHOUSE POSITIVE (Negative)
[2022-10-30 19:12] LABS: MANUAL DIFF FLAG NO
[2022-10-30 19:13] LABS: Basophils Absolute Auto 0.1 X10*3/uL (0.0-0.2); Basophils Percent Auto 0.5 % (0-2); Eosinophils Percent Auto 0.1 % (0-4); Hematocrit 37.6 % (42.0-52.0); Hemoglobin 12.2 g/dl (14.0-18.0); Imm Gran Abs Auto 0.02 X10*3/uL (0.00-0.03); Imm Gran Pct Auto 0.2 % (0.0-0.4); Mean Corpuscular HGB Conc 32.4 g/dl (31.0-36.0); Mean Corpuscular Hemoglobin 26.1 pg (27.0-33.0); Mean Corpuscular Volume 80.5 fL (80.0-98.0); Mean Platelet Volume 8.9 fL (9.4-12.4); Monocytes Absolute Auto 0.9 X10*3/uL (0.1-1.2); Monocytes Percent Auto 9.1 % (2-11); Neutrophils Absolute Auto 7.5 x10*3/uL (2.0-8.3); Neutrophils Percent Auto 79.1 % (45-73); Platelet Count 297 X10*3/uL (160-400); Red Blood Count 4.67 X10*6/uL (4.60-5.80); Red Cell Distribution Width 15.4 % (11.0-16.0); White Blood Count 9.5 X10*3/uL (4.8-10.8)
[2022-10-30 19:19] LABS: INTERNATIONAL NORM RATIO 1.2 (0.9-1.1); Prothrombin Time 13.8 SEC (10.0-13.1)
[2022-10-30 19:33] LABS: Alanine Aminotransferase 45 U/L (0-40); Albumin Level 4.3 g/dL (3.5-5.0); Alkaline Phosphatase 71 U/L (39-117); Anion Gap 14 (12-20); Aspartate Amino Transferase 43 U/L (5-37); Bilirubin Total 0.9 mg/dL (0.0-1.0); Blood Urea Nitrogen 13 mg/dL (9-16); Calcium 9.6 mg/dL (8.4-10.2); Carbon Dioxide 24 mmol/L (22-29); Chloride 103 mmol/L (96-108); Creatinine Clr Calc Pharmacy 93.3; Estimated Glomerular Filt Rate > 60; Glucose Random 131 mg/dL (60-115); Magnesium 1.6 mg/dL (1.6-2.6); Potassium 3.8 mmol/L (3.3-5.1); Sodium 137 mmol/L (135-145); Total Protein 7.6 g/dL (6.5-8.0)
[2022-10-30 19:41] VITALS: BP 141/75; PULSE 94; RESP 12; TEMP 37.3; O2SAT 97; O2SAT 98
[2022-10-30 20:46] LABS: Troponin-I High Sensitivity 8.1 ng/L (<3.5-35.0)
--- NOTE | 2022-10-30 21:11 | PC.NURSE ---
Discharge instructions reviewed with pt. Pt verbalizes understanding.
== END 2022-10-30 21:12 | disposition home or self-care (01) ==
PROVIDERS: Physician Assistant Medical; Emergency Provider Student in an Organized Health Care Education/Training Program
DX: U07.1 COVID-19 (principal); J10.1 Influenza due to other identified influenza virus with other respiratory manifestations; R50.9 Fever, unspecified; F17.210 Nicotine dependence, cigarettes, uncomplicated; F12.90 Cannabis use, unspecified, uncomplicated
CPT/HCPCS: 0241U; 36415; 71046; 80053; 83735; 84484; 85025; 85610; 93005; 99283; 99285

== ENCOUNTER 2023-02-08 12:04 | Outpatient (REF) | payer OTHER, SELFPAY ==
--- NOTE | ~2023-02-08 | XR_ITS ---
EXAMINATION: XR ELBOW, RIGHT CLINICAL INFORMATION: Pain. COMPARISON: Radiographs dated 03/27/2021. TECHNIQUE: AP, lateral, and oblique views of the right elbow. FINDINGS: Bony alignment and mineralization are normal. There is mild peripheral osteophyte formation of the articular surfaces of the right elbow. A small osteophyte is seen of the olecranon process. There is mild soft tissue swelling adjacent to the olecranon process, raising the possibility of olecranon bursitis. No fracture or dislocation is seen. There is no right elbow joint effusion. There is no foreign body. XR/XR elbow RT min 3V IMPRESSION: 1. There is mild osteoarthritic change of the right elbow. 2. There is mild soft tissue swelling adjacent to the olecranon process, raising the possibility of olecranon bursitis. 3. No right elbow fracture, dislocation or effusion is seen.
[2023-02-08 12:42] LABS: MANUAL DIFF FLAG NO
[2023-02-08 14:15] LABS: Basophils Absolute Auto 0.1 X10*3/uL (0.0-0.2); Basophils Percent Auto 0.6 % (0-2); Eosinophils Absolute Auto 0.2 X10*3/uL (0.0-0.4); Eosinophils Percent Auto 2.2 % (0-4); Hematocrit 37.7 % (42.0-52.0); Hemoglobin 11.7 g/dl (14.0-18.0); Imm Gran Abs Auto 0.04 X10*3/uL (0.00-0.03); Imm Gran Pct Auto 0.4 % (0.0-0.4); Lymphocytes Absolute Auto 2.5 X10*3/uL (1.2-4.9); Lymphocytes Percent Auto 27.3 % (20-40); Mean Corpuscular Hemoglobin 25.2 pg (27.0-33.0); Mean Corpuscular Volume 81.3 fL (80.0-98.0); Mean Platelet Volume 9.2 fL (9.4-12.4); Monocytes Absolute Auto 0.5 X10*3/uL (0.1-1.2); Monocytes Percent Auto 5.4 % (2-11); Neutrophils Absolute Auto 5.8 x10*3/uL (2.0-8.3); Neutrophils Percent Auto 64.1 % (45-73); Platelet Count 416 X10*3/uL (160-400); Red Blood Count 4.64 X10*6/uL (4.60-5.80); Red Cell Distribution Width 17.1 % (11.0-16.0)
[2023-02-08 15:03] LABS: Erythrocyte Sedimentation Rate 21 MM/HR (0-15)
[2023-02-08 15:09] LABS: Alanine Aminotransferase 34 U/L (0-40); Alkaline Phosphatase 59 U/L (39-117); Anion Gap 14 (12-20); Aspartate Amino Transferase 30 U/L (5-37); Bilirubin Direct 0.3 mg/dL (0.0-0.5); Bilirubin Total 0.9 mg/dL (0.0-1.0); Blood Urea Nitrogen 14 mg/dL (9-16); Calcium 9.7 mg/dL (8.4-10.2); Carbon Dioxide 26 mmol/L (22-29); Chloride 105 mmol/L (96-108); Cholesterol 113 mg/dL; Estimated Glomerular Filt Rate > 60; HDL Cholesterol 39 mg/dL; LDL Cholesterol Calculated 61 mg/dl; Potassium 4.1 mmol/L (3.3-5.1); Sodium 141 mmol/L (135-145); Total Protein 7.1 g/dL (6.5-8.0); Triglycerides 67 mg/dL
[2023-02-08 15:17] LABS: HIV AB/AG Nonreactive (Nonreactive); HIV Num 1 0.09 S/CO (0.00-0.99); Syphilis Screen Nonreactive (Nonreactive)
[2023-02-08 15:21] LABS: Glucose Random 51 mg/dL (60-115)
[2023-02-08 15:26] LABS: TSH reflex Free T4 0.37 uIU/mL (0.32-4.0)
[2023-02-08 19:50] LABS: Reflex LDLD? No
[2023-02-09 14:59] LABS: HCV Log PCR <1.18 NOT DETECTED Log IU/mL (NOT DETECTED); HepC Viral Load <15 NOT DETECTED IU/mL (NOT DETECTED)
== END 2023-02-08 12:05 | disposition home or self-care (01) ==
LOC: HO.XRAY 12:04
PROVIDERS: PCP Internal Medicine; Visit Provider Internal Medicine
DX: M70.21 Olecranon bursitis, right elbow (principal); I10 Essential (primary) hypertension; E78.2 Mixed hyperlipidemia; E11.9 Type 2 diabetes mellitus without complications; L73.0 Acne keloid; Z79.4 Long term (current) use of insulin; I25.10 Atherosclerotic heart disease of native coronary artery without angina pectoris
CPT/HCPCS: 36415; 73080; 80048; 80061; 80076; 84443; 85025; 85652; 86780; 87389; 87522

== ENCOUNTER → 2023-02-17 09:33 | Outpatient (BNVA) | payer OTHER, SELFPAY | PROVIDERS: PCP Internal Medicine; Visit Provider Internal Medicine | DX: I25.10 Atherosclerotic heart disease of native coronary artery without angina pectoris (principal); I10 Essential (primary) hypertension; E11.8 Type 2 diabetes mellitus with unspecified complications; F17.210 Nicotine dependence, cigarettes, uncomplicated | CPT/HCPCS: 99212 ==

== ENCOUNTER → 2023-03-22 08:45 | Outpatient (REF) | payer OTHER, SELFPAY ==
--- NOTE | ~2023-03-22 | NM_ITS ---
Exercise Myocardial perfusion study Indication: Precordial chest pain with CAD to evaluate for myocardial ischemia Technique: The patient was brought in for an exercise perfusion study on 03/22/2023. Patient performed exercise as per Mayank protocol and was injected 30 mCi of sestamibi was given intravenously one target HR was achieved. Images were obtained using the SPECT gamma camera interlaced with the gating device. Images were obtained in supine position. Resting perfusion study was performed on 03/23/2023. Patient was administered 30 mCi of sestamibi intravenously at rest. Images were then obtained in supine position. Images obtained with and without CT attenuation. Total DLP 97 mGy-cm. Images were processed with the software and compared side to side in short axis, horizontal long axis and vertical long axis views. Findings: The stress perfusion study showed non attenuated images show mildly reduced uptake in the septum and moderately reduced uptake in the apex as well as mildly reduced uptake in the distal anterior and moderately reduced uptake in the inferior wall of the LV myocardium. Attenuation corrected images show improved uptake in the inferior wall otherwise mildly to moderately reduced uptake in the distal anterior and apex as well as mildly reduced uptake in the septum of the LV myocardium.. The gated study shows mildly reduced LV systolic function with calculated LVEF of 49%. LV cavity is mildly dilated in size. The gated study shows normal wall thickening and contraction of all segments. There is no clear transient ischemic dilation. Resting study shows improved uptake in the distal anterior, apex as well as the septum of the LV myocardium. Gating at rest reveals normal systolic wall motion with ejection fraction at 57%. The findings are consistent with septal, distal anterior and apical ischemia in LAD territory. NM/NM cardiolite stress test Impression: 1. LAD territory ischemia of mild to moderate intensity, moderate size defect 2. Gated LVEF is 49% with stress and 57% with rest 3. Transient ischemic dilatation not present Stress EKG is positive for ischemia
--- NOTE | 2023-03-22 08:49 | CA_ITS ---
Transthoracic Echocardiogram Patient (Last, First, Middle): Cruz Ryan L Gender: Male Date of : 1960 Age: 63 Procedure Date: 03/22/2023 Procedure Type: Transthoracic Echocardiogram Location: OP Height: 180.34 cm Weight: 96.16 kg BSA: 2.16 m2 Heart Rate: 73 bpm BP: 142 / 78 mmHg Ignition Mechanic: SB Referring MD: Devin Sousa MD Symptoms: I25.10 - Atherosclerotic heart disease of [place] coronary artery without... Study Quality: Adequate ECG Rhythm: Sinus Conclusions: - The left ventricular systolic function is mildly decreased. The calculated ejection fraction is 52% by biplane method. - There is evidence of regional wall motion abnormalities. - No obvious valvular pathology seen on this study. - There is mild dilatation of the ascending aorta measuring 4.20 cm. Findings Left Ventricle Normal left ventricular cavity size. The left ventricular systolic function is mildly decreased. The calculated ejection fraction is 52% by biplane method. There is evidence of regional wall motion abnormalities. Diastolic function is normal for age. There is mild septal asymmetric hypertrophy. LV peak GLS -18.2%, but could be overestimate. Wall Motion Rest Echo Findings The basal inferolateral segment is hypokinetic. The basal inferior segment is akinetic. Right Ventricle Mildly increased right ventricular cavity size. There is normal right ventricular systolic function. Atria Both atria are normal in size. Aortic Valve There is a normal trileaflet aortic valve. There is no aortic valve stenosis. There is no aortic valve regurgitation. Mitral Valve The mitral valve appears normal. There is trace mitral valve regurgitation. There is no mitral valve stenosis. Pulmonic Valve The pulmonic valve is likely normal. Tricuspid Valve Normal tricuspid valve structure. There is trace tricuspid valve regurgitation. There is no evidence of pulmonary hypertension. Great Vessels There is mild dilatation of the ascending aorta measuring 4.20 cm. Venous The inferior vena cava was not well visualized. Pericardium/Pleural There is no evidence of pericardial effusion. Prior Study Comparison Changes noted compared to prior study dated: 09/23/2021. Increase in ascending aortic size. Recommendations, Care & Conclusions No obvious valvular pathology seen on this study. Measurements 2D Linear Measurements IVSd: 1.77 0.6-0.9/0.6-1.0 cm LVIDd: 5.12 3.9-5.3/4.2-5.9 cm LVIDd Index: 2.37 2.4-3.2/2.2-3.1 cm/m2 LVIDs: 3.79 2.0-3.6 cm LVPWd: 0.92 0.7-1.1 cm LA Diam: 4.10 2.7-3.8/3.0-4.0 cm LAIDs Index: 1.90 1.5-2.3 cm/m2 LV Mass: 355.85 67-162/88-224 g LV Mass Index: 164.74 43-95/49-115 g/m2 LVOT Diam: 2.60 3.0+(-)1.3 cm 2D Systolic Function EF 4C: 51.30 >55% EF 2C: 52.00 >55% EF BiP: 52.20 >55% Mitral Valve MV Pk E: 0.59 MV PK A: 0.49 MV Decel Time: 210.00 E/A: 1.20 E'Lateral: 9.36 E'Medial: 5.33 E/E' Med: 11.10 E/E' Lat: 6.30 PHT: 62.00 MVA PHT: 3.55 Decel [place]: 2.81 Aortic Valve AoV Pk Tano: 1.09 AoV Pk Grad: 5.00 JACE: 4.80 LVOT LVOT Pk Tano: 0.91 LVOT Mn Tano: 0.61 LVOT VTI: 0.19 LVOT Pk Grad: 3.00 LVOT Mn Grad: 2.00 LVOT Diam: 2.60 LVOT Area: 5.31 Diastolic Function MV Pk E: 0.59 MV Pk A: 0.49 E/A: 1.20 E'Medial: 5.33 E/E' Med: 11.10 E' Laterial: 9.36 E/E' Lat: 6.30 Right Ventricle TAPSE (mm): 19.90 TVS' Tano: 11.20 Tricuspid Valve RA Press: 3.00 Great Vessels Aorta Sinus of Valsalva: 3.90 2.0-3.5 cm Ao Asc: 4.20 2.1-3.4 cm Pulmonary Veins Pulm Vein S/D 1.10 Pulmonary Valve PV Pk Tano: 0.98 Peak PV Grad: 4.00 Updated in Other Vendor System with Status of Final Devin Sousa MD electronically signed on 03/22/2023 12:54:32 PM with status of Final
--- NOTE | 2023-03-22 09:08 | CA_ITS ---
Acquisition Time: 2023-03-22 09:41:13 Total Exercise Time: 00:04:46 Test Indications: ATHEROSCLEROSIS HEART DZ Medications: Protocol: KEVIN Max HR: 146 BPM 92% of Pred: 157 BPM Max BP: 240/064 mmHG Max Work Load: 6.7 METS Exercise stress test 4 min 46 sec of Kevin protocol achieving 92% MPHR with moderate SOB, 7/10 chest burning, without arrhythmia, with normotensive response to exercise, with EKG changes that meet [place] for ischemia in setting of baseline abnormality; 2-3mm horizontal ST infieror and V6 which improves back to baseline in recovery. In recovery his chest discomfort resolved. Nuclear images pending. Test reviewed with Dr. Sousa. Referred By: Devin Sousa Overread By: JOHN MARIA
== END ==
LOC: HO.CARD 08:45
PROVIDERS: PCP Internal Medicine; Visit Provider Internal Medicine
DX: R07.2 Precordial pain (principal); I25.10 Atherosclerotic heart disease of native coronary artery without angina pectoris
CPT/HCPCS: 78452; 93017; 93306; 93356; A9500

== ENCOUNTER 2023-04-05 14:16 | Outpatient (REF) | payer OTHER, SELFPAY ==
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
[2023-04-05 16:45] LABS: MANUAL DIFF FLAG NO
[2023-04-05 17:56] LABS: Basophils Percent Auto 0.4 % (0-2); Eosinophils Absolute Auto 0.3 X10*3/uL (0.0-0.4); Eosinophils Percent Auto 2.7 % (0-4); Hematocrit 34.1 % (42.0-52.0); Hemoglobin 10.6 g/dl (14.0-18.0); Imm Gran Abs Auto 0.05 X10*3/uL (0.00-0.03); Imm Gran Pct Auto 0.5 % (0.0-0.4); Lymphocytes Percent Auto 19.2 % (20-40); Mean Corpuscular HGB Conc 31.1 g/dl (31.0-36.0); Mean Corpuscular Hemoglobin 25.4 pg (27.0-33.0); Mean Corpuscular Volume 81.6 fL (80.0-98.0); Mean Platelet Volume 9.2 fL (9.4-12.4); Monocytes Absolute Auto 0.8 X10*3/uL (0.1-1.2); Monocytes Percent Auto 7.6 % (2-11); Neutrophils Absolute Auto 7.4 x10*3/uL (2.0-8.3); Neutrophils Percent Auto 69.6 % (45-73); Platelet Count 416 X10*3/uL (160-400); Red Blood Count 4.18 X10*6/uL (4.60-5.80); Red Cell Distribution Width 16.5 % (11.0-16.0); White Blood Count 10.7 X10*3/uL (4.8-10.8)
[2023-04-05 18:05] LABS: INTERNATIONAL NORM RATIO 0.9 (0.9-1.1); Prothrombin Time 10.4 SEC (10.0-13.1)
[2023-04-06 10:09] LABS: Anion Gap 13 (12-20)
[2023-04-06 10:11] LABS: Blood Urea Nitrogen 10 mg/dL (9-16); Calcium 9.5 mg/dL (8.4-10.2); Carbon Dioxide 26 mmol/L (22-29); Chloride 107 mmol/L (96-108); Estimated Glomerular Filt Rate > 60; Glucose Random 188 mg/dL (60-115); Potassium 4.1 mmol/L (3.3-5.1); Sodium 142 mmol/L (135-145)
== END 2023-04-05 14:17 | disposition home or self-care (01) ==
LOC: HO.HHCX 14:16
PROVIDERS: Internal Medicine; Visit Provider Emergency Medicine
DX: Z01.812 Encounter for preprocedural laboratory examination (principal); R68.84 Jaw pain; M25.522 Pain in left elbow; M25.532 Pain in left wrist; S09.93XD Unspecified injury of face, subsequent encounter
CPT/HCPCS: 36415; 73080; 73110; 80048; 82550; 83874; 85025; 85610

== ENCOUNTER 2023-04-05 16:21 | Outpatient (REF) | payer OTHER, SELFPAY | END 2023-04-05 16:22 | disposition home or self-care (01) | LOC: HO.LAB 16:21 | PROVIDERS: Visit Provider Emergency Medicine | DX: Z13.89 Encounter for screening for other disorder (principal) ==

== ENCOUNTER 2023-04-18 00:25 | Emergency (ER) | payer OTHER, SELFPAY ==
[2023-04-18 00:28] VITALS: BP 121/83; PULSE 80; RESP 18; TEMP 36.9; O2SAT 100; BMI 29.3
[2023-04-18] MEDS: Doxycycline Monohydrate 100 MG CAPSULE PO (01:22)
[2023-04-18] MEDS: Lidocaine HCl 1 % MPF 5 ML VIAL INFILTRATI (01:22)
[2023-04-18 01:35] VITALS: BP 134/74; PULSE 74; RESP 16; TEMP 36.9; O2SAT 98
--- NOTE | 2023-04-18 01:50 | ED.SKABFB ---
HPI - Skin/Abscess/Foreign Bdy General Chief complaint: Skin/Abscess/Foreign Body Stated complaint: lump on back of head, ingrown hair? Time Seen by Provider: 04/18/23 00:47 Source: patient and family Mode of arrival: ambulatory Limitations: no limitations History of Present Illness HPI narrative: 63-year-old male presents with an occipital head swelling, pain. Symptoms started 2-3 days ago. The symptoms described as severe. There has been no drainage. There has been no fevers or chills. Symptoms are worse with palpation. Patient has never had this before. He is a diabetic. The pain is experiencing is sharp and burning. The pain does not radiate. Related Data Home Medications Medication Instructions Recorded Confirmed insulin glargine 100 unit/mL (3 42 unit subcut BEDTIME 10/03/20 02/17/23 mL) subcutaneous pen (Lantus Solostar U-100 Insulin) metformin 1,000 mg tablet 1,000 mg BID 10/03/20 02/17/23 omeprazole 20 mg capsule,delayed 20 mg DAILY 10/03/20 02/17/23 release lisinopril 40 mg tablet 40 mg PO DAILY 02/01/21 02/17/23 morphine 30 mg tablet,extended 1 tab PO Q12H 02/01/21 02/17/23 release oxycodone-acetaminophen 5 mg-325 1 tab PO Q8H PRN pain 02/01/21 02/17/23 mg tablet atorvastatin 80 mg tablet 80 mg PO BEDTIME 02/18/21 02/17/23 ticagrelor 90 mg tablet 90 mg PO BID 02/18/21 02/17/23 omega-3 fatty acids-fish oil 340 1 cap PO TID 03/28/21 02/17/23 mg-1,000 mg capsule (Fish Oil) amlodipine 5 mg tablet 5 mg PO QAM 05/28/21 02/17/23 omega-3 acid ethyl esters 1 gram 0 cap PO 03/19/23 capsule Previous Rx's Medication Instructions Recorded aspirin 81 mg tablet,delayed 81 mg PO BEDTIME #30 ea 07/27/22 release tadalafil 5 mg tablet 5 mg PO DAILY sexual activity 90 08/18/22 days #90 tabs terazosin 5 mg capsule 5 mg PO BEDTIME 30 days #30 caps 11/06/22 finasteride 5 mg tablet 5 mg PO DAILY 30 days #30 tabs 01/25/23 metoprolol succinate 50 mg 50 mg PO QPM 90 days #90 tabs 03/11/23 tablet,extended release 24 hr doxycycline hyclate 100 mg capsule 100 mg PO BID #20 caps 04/18/23 Allergies Allergy/AdvReac Type Severity Reaction Status Date / Time No Known Allergies Allergy Verified 04/18/23 00:31 [No Known Allergies*] Review of Systems Review of Systems: CONSTITUTIONAL: Denies weight loss, fever and chills. HEENT: Denies changes in vision and hearing. RESPIRATORY: Denies SOB and cough. CV: Denies palpitations no CP. GI: Denies abdominal pain, nausea, vomiting and diarrhea. : Denies dysuria and urinary frequency. MSK: Denies myalgia and joint pain. SKIN: Denies rash and pruritus. NEUROLOGICAL: Denies headache and syncope. PSYCHIATRIC: Denies recent changes in mood. Denies anxiety and depression. All other ROS are negative unless in HPI PMFSH Past Medical History Medical History Abscess of hand, right Acute coronary syndrome Atherosclerotic cardiovascular disease Cellulitis Diabetes Dog bite of extremity Epidermal cyst Essential hypertension HTN (hypertension) NSTEMI (non-ST elevated myocardial infarction) Smoking Type 2 diabetes mellitus with unspecified complications Surgical History History of cardiac cath (~03/2019) S/P cardiac cath Family History Family History Father No problems noted. Mother Leukemia HTN (hypertension) Social History Social History Household Members: None Housing: Apartment Do you presently have visiting nurse or other home services: No Alcohol intake: never Patient Tobacco Use Status: Current everyday Tobacco user Cigarette Packs Per Day: 0.25 Cigarettes Per Day: 5 Smoked in Last 30 Days: No Second Hand Smoke Exposure: No Use of substances other than those prescribed or required for medical reasons: No Substance Use Type: Marijuana Advance Directives: Yes Advance Directives on File: Yes Advance Directives Date on File: 02/04/21 service: No Current occupational status: unemployed Physical Exam Vital Signs: Vital Signs: Last Vital Signs Temp 98.4 F 04/18/23 01:35 Pulse 74 04/18/23 01:35 Resp 16 04/18/23 01:35 BP 134/74 04/18/23 01:35 Pulse Ox 98 04/18/23 01:35 O2 Del Method Room Air 04/18/23 01:35 BMI result Body Mass Index 29.3 GEN: Well developed, no acute distress, alert, oriented HEENT: Normocephalic, atraumatic, normal external ears, nose appears normal Eyes: Normal to appearance Neck: Supple, no lymphadenopathy Respiratory: Talks in complete sentences, no respiratory distress Extremities: No clubbing cyanosis or edema Neurologic: No focal neurologic deficits, cranial nerves 2-12 intact, gait normal Skin: No rash , likely early abscess formation, left occipital scalp/neck area. Tender to palpation. No purulent drainage Medications Administered Discontinued Medications Generic Name Dose Route Start Last Admin Trade Name Freq PRN Reason Stop Dose Admin Doxycycline Monohydrate 100 mg 04/18/23 01:16 04/18/23 01:22 Doxycycline Monohydrate 100 Mg Capsule PO 04/18/23 01:17 100 mg ONCE ONE Administration Lidocaine HCl 5 ml 04/18/23 01:14 04/18/23 01:22 Lidocaine Hcl 1 % Mpf 5 Ml Vial INFILTRATI 04/18/23 01:15 5 ml ONCE ONE Administration Medical Decision Making Medical Decision Making [facility] Narrative: Patient presents with swelling and tenderness the left occipital area. This is suspicious for abscess or hidradenitis suppurativa. Will perform an I&D. If need be, we will send cultures. If sterile packing placed, will make recommendations regarding appropriate follow-up. Given history of diabetes, will start the patient on doxycycline to cover strep and staph infection. Differential Diagnosis Differential Diagnoses: The differential diagnosis associated with the presentation includes (Abscess, hidradenitis, rash) Independent Historian Clinical information obtained from an independent historian. History obtained from or confirmed by: Other (Family) Prescription Management I considered prescription management with: Pain Medication Chronic Conditions Patient?s care impacted by: Diabetes Procedures Abscess I/D Site: scalp Side (if applicable): left Local Anesthetic: lidocaine 1% Amount of anesthesia used (mL): 4 Technique: incised with blade Amount of fluid expressed (mL): 3 Sent for culture/gram staining?: No Irrigation: Yes Packing used?: iodoform Complications: pain Discharge Plan Discharge Clinical Impression: Abscess of skin or subcutaneous tissue Patient Disposition: Home, Self-Care Instructions: Abscess (ED), Incision and Drainage (ED) Prescriptions: New doxycycline hyclate 100 mg capsule 100 mg PO BID Qty: 20 0RF No Action aspirin 81 mg tablet,delayed release (DR/EC) 81 mg PO BEDTIME Qty: 30 3RF Rx Instructions: Please call to schedule a follow up with Dr. Sousa for next year. terazosin 5 mg capsule 5 mg PO BEDTIME 30 Days Qty: 30 5RF finasteride 5 mg tablet 5 mg PO DAILY 30 Days Qty: 30 1RF metoprolol succinate 50 mg tablet extended release 24 hr 50 mg PO QPM 90 Days Qty: 90 1RF omeprazole 20 mg Capsule,Delayed Release(Dr/Ec) 20 mg DAILY metformin 1,000 mg Tablet 1,000 mg BID Lantus Solostar U-100 Insulin 100 unit/mL (3 mL) Insulin Pen 42 unit SUBCUT BEDTIME morphine 30 mg tablet extended release 1 tab PO Q12H oxycodone-acetaminophen 5-325 mg tablet 1 tab PO Q8H PRN (Reason: pain) lisinopril 40 mg tablet 40 mg PO DAILY amlodipine 5 mg tablet 5 mg PO QAM Fish Oil 340-1,000 mg capsule 1 cap PO TID ticagrelor 90 mg tablet 90 mg PO BID atorvastatin 80 mg tablet 80 mg PO BEDTIME tadalafil 5 mg tablet 5 mg PO DAILY 90 Days Qty: 90 1RF omega-3 acid ethyl esters 1 gram capsule 0 cap PO Referrals: Physician,Unknown J [Primary Care Provider] - (or emergency department 2 days for wound check and possible packing removal)
--- NOTE | 2023-04-18 02:30 | PC.NURSE ---
RN to bedside per request due to dressing to I&D site being saturated with blood. RN was able to remove the old dressing, noted the wick to be placed. New dressing applied and secured in place with additional dressing supplies provided to the patient
[2023-04-18] MEDS: Acetaminophen 325 MG TABLET 975 MG PO (02:36)
== END 2023-04-18 02:50 | disposition home or self-care (01) ==
PROVIDERS: Emergency Provider Emergency Medicine
DX: L02.811 Cutaneous abscess of head [any part, except face] (principal); Z79.899 Other long term (current) drug therapy
CPT/HCPCS: 10060; 99284

== ENCOUNTER 2023-05-24 11:31 | Outpatient (REF) | payer OTHER, SELFPAY ==
[2023-05-24 11:46] LABS: MANUAL DIFF FLAG NO
[2023-05-24 11:54] LABS: Basophils Absolute Auto 0.1 X10*3/uL (0.0-0.2); Basophils Percent Auto 0.7 % (0-2); Eosinophils Absolute Auto 0.2 X10*3/uL (0.0-0.4); Eosinophils Percent Auto 3.5 % (0-4); Hematocrit 31.9 % (42.0-52.0); Hemoglobin 9.8 g/dl (14.0-18.0); Imm Gran Abs Auto 0.02 X10*3/uL (0.00-0.03); Imm Gran Pct Auto 0.3 % (0.0-0.4); Lymphocytes Absolute Auto 1.7 X10*3/uL (1.2-4.9); Lymphocytes Percent Auto 24.6 % (20-40); Mean Corpuscular HGB Conc 30.7 g/dl (31.0-36.0); Mean Corpuscular Hemoglobin 24.2 pg (27.0-33.0); Mean Corpuscular Volume 78.8 fL (80.0-98.0); Mean Platelet Volume 8.8 fL (9.4-12.4); Monocytes Absolute Auto 0.5 X10*3/uL (0.1-1.2); Monocytes Percent Auto 6.7 % (2-11); Neutrophils Absolute Auto 4.4 x10*3/uL (2.0-8.3); Neutrophils Percent Auto 64.2 % (45-73); Platelet Count 363 X10*3/uL (160-400); Red Blood Count 4.05 X10*6/uL (4.60-5.80); Red Cell Distribution Width 15.7 % (11.0-16.0); White Blood Count 6.9 X10*3/uL (4.8-10.8)
[2023-05-24 12:10] LABS: INTERNATIONAL NORM RATIO 0.9 (0.9-1.1); Prothrombin Time 10.4 SEC (10.0-13.1)
[2023-05-24 12:47] LABS: Anion Gap 15 (12-20); Blood Urea Nitrogen 16 mg/dL (9-16); Calcium 9.1 mg/dL (8.4-10.2); Carbon Dioxide 24 mmol/L (22-29); Chloride 106 mmol/L (96-108); Estimated Glomerular Filt Rate > 60; Glucose Random 108 mg/dL (60-115); Potassium 3.7 mmol/L (3.3-5.1); Sodium 141 mmol/L (135-145)
== END 2023-05-24 11:32 | disposition home or self-care (01) ==
LOC: HO.LAB 11:31
PROVIDERS: Visit Provider Internal Medicine
DX: Z01.812 Encounter for preprocedural laboratory examination (principal)
CPT/HCPCS: 36415; 80048; 85025; 85610

== ENCOUNTER → 2023-05-27 23:59 | Outpatient (BNV) | payer OTHER, SELFPAY | PROVIDERS: PCP Internal Medicine; Visit Provider Internal Medicine Cardiovascular Disease | DX: I20.8 Other forms of angina pectoris (principal); R93.1 Abnormal findings on diagnostic imaging of heart and coronary circulation | CPT/HCPCS: 93458; 99152 ==

== ENCOUNTER 2023-06-20 02:26 | Emergency (ER) | payer OTHER, SELFPAY ==
[2023-06-20 02:42] VITALS: BP 126/63; PULSE 81; RESP 18; TEMP 36.9; O2SAT 99; BMI 29.3
[2023-06-20 07:09] VITALS: BP 141/71; PULSE 67; RESP 20; TEMP 36.8; O2SAT 98
[2023-06-20 07:57] LABS: MANUAL DIFF FLAG NO
[2023-06-20 07:59] LABS: Basophils Absolute Auto 0.1 X10*3/uL (0.0-0.2); Basophils Percent Auto 0.6 % (0-2); Eosinophils Absolute Auto 0.3 X10*3/uL (0.0-0.4); Eosinophils Percent Auto 3.4 % (0-4); Hematocrit 32.2 % (42.0-52.0); Hemoglobin 9.9 g/dl (14.0-18.0); Imm Gran Abs Auto 0.03 X10*3/uL (0.00-0.03); Imm Gran Pct Auto 0.3 % (0.0-0.4); Lymphocytes Absolute Auto 2.3 X10*3/uL (1.2-4.9); Lymphocytes Percent Auto 26.4 % (20-40); Mean Corpuscular HGB Conc 30.7 g/dl (31.0-36.0); Mean Corpuscular Hemoglobin 24.3 pg (27.0-33.0); Mean Corpuscular Volume 78.9 fL (80.0-98.0); Mean Platelet Volume 8.8 fL (9.4-12.4); Monocytes Absolute Auto 0.7 X10*3/uL (0.1-1.2); Monocytes Percent Auto 8.4 % (2-11); Neutrophils Absolute Auto 5.3 x10*3/uL (2.0-8.3); Neutrophils Percent Auto 60.9 % (45-73); Platelet Count 350 X10*3/uL (160-400); Red Blood Count 4.08 X10*6/uL (4.60-5.80); Red Cell Distribution Width 16.8 % (11.0-16.0); White Blood Count 8.8 X10*3/uL (4.8-10.8)
[2023-06-20 08:09] LABS: Anion Gap 14 (12-20); Blood Urea Nitrogen 15 mg/dL (9-16); Calcium 9.3 mg/dL (8.4-10.2); Carbon Dioxide 25 mmol/L (22-29); Chloride 108 mmol/L (96-108); Creatinine Clr Calc Pharmacy 77.4; Estimated Glomerular Filt Rate > 60; Glucose Random 144 mg/dL (60-115); Potassium 3.8 mmol/L (3.3-5.1); Sodium 143 mmol/L (135-145)
--- NOTE | 2023-06-20 08:23 | ED.SKABFB ---
HPI - Skin/Abscess/Foreign Bdy General Chief complaint: Skin/Abscess/Foreign Body Stated complaint: abcess on back of head Time Seen by Provider: 06/20/23 08:06 Source: patient Mode of arrival: ambulatory Limitations: no limitations History of Present Illness HPI narrative: This is a 63-year-old male history of diabetes, hypertension, arthrosclerotic cardiovascular disease presenting to the emergency department for concerns of a painful lump in the back left side of his head/neck region it has been present for the past month or so, patient tells me that she he came here in he had it drained, since then has been having pain, swelling, he reports that the area is mostly hard and painful to palpation, no drainage to the area. Patient has not yet seen a specialist for this. Not currently on antibiotics. Denies fevers, chills, numbness, tingling. Related Data Home Medications Medication Instructions Recorded Confirmed insulin glargine 100 unit/mL (3 42 unit subcut BEDTIME 10/03/20 02/17/23 mL) subcutaneous pen (Lantus Solostar U-100 Insulin) metformin 1,000 mg tablet 1,000 mg BID 10/03/20 02/17/23 omeprazole 20 mg capsule,delayed 20 mg DAILY 10/03/20 02/17/23 release lisinopril 40 mg tablet 40 mg PO DAILY 02/01/21 02/17/23 morphine 30 mg tablet,extended 1 tab PO Q12H 02/01/21 02/17/23 release oxycodone-acetaminophen 5 mg-325 1 tab PO Q8H PRN pain 02/01/21 02/17/23 mg tablet atorvastatin 80 mg tablet 80 mg PO BEDTIME 02/18/21 02/17/23 ticagrelor 90 mg tablet 90 mg PO BID 02/18/21 02/17/23 omega-3 fatty acids-fish oil 340 1 cap PO TID 03/28/21 02/17/23 mg-1,000 mg capsule (Fish Oil) amlodipine 5 mg tablet 5 mg PO QAM 05/28/21 02/17/23 omega-3 acid ethyl esters 1 gram 0 cap PO 03/19/23 capsule Previous Rx's Medication Instructions Recorded aspirin 81 mg tablet,delayed 81 mg PO BEDTIME #30 ea 07/27/22 release tadalafil 5 mg tablet 5 mg PO DAILY sexual activity 90 08/18/22 days #90 tabs finasteride 5 mg tablet 5 mg PO DAILY 30 days #30 tabs 01/25/23 metoprolol succinate 50 mg 50 mg PO QPM 90 days #90 tabs 03/11/23 tablet,extended release 24 hr doxycycline hyclate 100 mg capsule 100 mg PO BID #20 caps 04/18/23 ibuprofen 600 mg tablet 600 mg PO Q8H PRN fever or pain 04/18/23 #30 tabs terazosin 5 mg capsule 5 mg PO BEDTIME 30 days #30 caps 04/30/23 cephalexin 500 mg tablet 500 mg PO Q6H 10 days #40 tabs 06/20/23 Allergies Allergy/AdvReac Type Severity Reaction Status Date / Time No Known Allergies Allergy Verified 04/18/23 00:31 [No Known Allergies*] Review of Systems Review of Systems: Constitutional : No Weight loss, No Fever, No Chills, No Fatigue, No Malaise ENT/Mouth : No sore throat, No Rhinorrhea Eyes: No Eye Pain, No Swelling, No Redness Cardiovascular : No Chest Pain, No SOB, No Dyspnea on Exertion, No Orthopnea, No Edema, No Palpitations Respiratory : No Cough, No Sputum, No Wheezing Gastrointestinal : No Nausea, No Vomiting, No Diarrhea, No Constipation, No abdominal Pain, No Hematochezia, No Melena Genitourinary : No Dysuria, No Urinary Frequency, No Hematuria, Musculoskeletal : No joint pain, No Myalgias, No Joint Swelling Skin : No Skin Lesions, No rash, + abscess Neuro : No Weakness, No Numbness, No Dizziness, No Headache Psych : No Anxiety/Panic, No Depression All other systems reviewed and are negative Yes all other systems are reviewed and are negative [facility] Past Medical History Attestation statement: The following information was validated with the patient. Source: old records reviewed and nursing notes reviewed Medical History Abscess of hand, right Acute coronary syndrome Atherosclerotic cardiovascular disease Cellulitis Diabetes Dog bite of extremity Epidermal cyst Essential hypertension HTN (hypertension) NSTEMI (non-ST elevated myocardial infarction) Smoking Type 2 diabetes mellitus with unspecified complications Surgical History History of cardiac cath (~03/2019) S/P cardiac cath Family History Family History Father No problems noted. Mother Leukemia HTN (hypertension) Social History Social History Household Members: None Housing: Apartment Do you presently have visiting nurse or other home services: No Alcohol intake: never Patient Tobacco Use Status: Current everyday Tobacco user Cigarette Packs Per Day: 0.25 Cigarettes Per Day: 5 Second Hand Smoke Exposure: No Substance Use Type: Marijuana Advance Directives: Yes Advance Directives on File: Yes Advance Directives Date on File: 02/04/21 service: No Current occupational status: unemployed Physical Exam Vital Signs: Vital Signs: Last Vital Signs Temp 98.2 F 06/20/23 07:09 Pulse 67 06/20/23 07:09 Resp 20 06/20/23 07:09 BP 141/71 H 06/20/23 07:09 Pulse Ox 98 06/20/23 07:09 O2 Del Method Room Air 06/20/23 07:09 BMI result Body Mass Index 29.3 Vital signs stable Appearance: Alert.? Oriented X3.? No acute distress.? Head: Normocephalic, atraumatic, no step-offs or deformities Eyes: Pupils equal, round and reactive to light.? Neck: Normal inspection.? Neck supple.? + left occipital scalp/neck area w/ developing abcess 3cm X 3 cm there is one are of it about .5cm X.5 cm with slight fluctuance, the remainder is indurated. Tender to palpation. No purulent drainage CVS: Normal heart rate and rhythm.? Pulses normal.? Respiratory: No respiratory distress.? Breath sounds normal.? Skin: Skin warm and dry.? Normal skin color.? Normal skin turgor.? Extremities: No lower extremity edema.? No calf ttp. 5/5 strength to bilateral upper and lower extremities Neuro: Oriented X 3.? No motor deficit.? No sensory deficit. CN 2-12 intact Course Reevaluation(s) Reevaluation #1: I attempted fine needle aspiration (prior to doing so verbal consent obtained) to the small fluctuant area, a small amount of blood and some purulence expressed however not a lot. Patient tolerated procedure well. Did advise patient to apply warm compresses to affected area, follow-up with general surgery. And return with any new or worsening symptoms. Educated patient on diagnosis and treatment plan, answered all question, patient verbalizes understanding. At this time patient will be discharged home, advised to return with new or worsening symptoms. Educated on worrisome signs and symptoms and when to return. At this time I feel comfortable discharge home. Time: 08:27 Medical Decision Making Medical Decision Making [facility] Narrative: [id number] 63-year-old male presents with concerns of developing abscess, reoccurring to the left side of his neck Physical exam significant for left occipital scalp/neck area w/ developing abcess 3cm X 3 cm there is one are of it about .5cm X.5 cm with slight fluctuance, the remainder is indurated. Tender to palpation. No purulent drainage This is likely developing abscess with slight overlying cellulitis. No signs of necrotizing infection, meningitis, encephalitis. Plan will try fine needle aspiration on the small area of fluctuance. Differential Diagnosis Differential Diagnoses: The differential diagnosis associated with the presentation includes This is likely developing abscess with slight overlying cellulitis. No signs of necrotizing infection, meningitis, encephalitis. Admission/Observation Consideration of admission/observation: Escalation of care including admission/observation considered Unlikely Lab Data 06/20/23 07:52 06/20/23 07:52 Labs: Lab Results 06/20/23 06/20/23 Range/Units 07:52 07:52 WBC 8.8 (4.8-10.8) X10*3/uL RBC 4.08 L (4.60-5.80) X10*6/uL Hgb 9.9 L (14.0-18.0) g/dl Hct 32.2 L (42.0-52.0) % MCV 78.9 L (80.0-98.0) fL MCH 24.3 L (27.0-33.0) pg MCHC 30.7 L (31.0-36.0) g/dl RDW 16.8 H (11.0-16.0) % Plt Count 350 (160-400) X10*3/uL MPV 8.8 L (9.4-12.4) fL Immature Gran % (Auto) 0.3 (0.0-0.4) % Neut % (Auto) 60.9 (45-73) % Lymph % (Auto) 26.4 (20-40) % Henry % (Auto) 8.4 (2-11) % Eos % (Auto) 3.4 (0-4) % Baso % (Auto) 0.6 (0-2) % Lymph # (Auto) 2.3 (1.2-4.9) X10*3/uL Henry # (Auto) 0.7 (0.1-1.2) X10*3/uL Eos # (Auto) 0.3 (0.0-0.4) X10*3/uL Baso # (Auto) 0.1 (0.0-0.2) X10*3/uL Abs Immat Gran (auto) 0.03 (0.00-0.03) X10*3/uL Absolute Neuts (auto) 5.3 (2.0-8.3) x10*3/uL Absolute Nucleated RBC 0.000 (0.0-0.012) X10*3/uL Nucleated RBC % (auto) 0.0 (0.0-0.2) /100WBC Sodium 143 (135-145) mmol/L Potassium 3.8 (3.3-5.1) mmol/L Chloride 108 (96-108) mmol/L Carbon Dioxide 25 (22-29) mmol/L Anion Gap 14 (12-20) BUN 15 (9-16) mg/dL Creatinine 1.15 (0.5-1.4) mg/dL Estim Creat Clear Calc 77.4 Estimated GFR > 60 Random Glucose 144 H (60-115) mg/dL Calcium 9.3 (8.4-10.2) mg/dL Prescription Management I considered prescription management with: Antibiotic Core Measures AMI core measures followed: Yes Measure exclusions: not indicated Critical Care Time Critical Care Time Critical Care Time: No Discharge Plan Discharge Clinical Impression: Abscess Patient Disposition: Home, Self-Care Instructions: Abscess (ED), Abscess Follow-up (ED) Additional Instructions: Take your medications as prescribed. If you were prescribed antibiotics today, it is important that you take your medication to their entirety, do not skip any doses, do not finish them early. Follow-up with your primary care provider this week. Return to the emergency department with new or worsening symptoms. Such as fevers, chills, chest pain, shortness of breath, nausea, vomiting, dizziness, headache, vision changes, lethargy In case of emergency call 911 Apply warm compresses to the area 3 to 4 times a day. Prescriptions: New cephalexin 500 mg tablet 500 mg PO Q6H 10 Days Qty: 40 0RF No Action aspirin 81 mg tablet,delayed release (DR/EC) 81 mg PO BEDTIME Qty: 30 3RF Rx Instructions: Please call to schedule a follow up with Dr. Sousa for next year. finasteride 5 mg tablet 5 mg PO DAILY 30 Days Qty: 30 1RF metoprolol succinate 50 mg tablet extended release 24 hr 50 mg PO QPM 90 Days Qty: 90 1RF terazosin 5 mg capsule 5 mg PO BEDTIME 30 Days Qty: 30 5RF omeprazole 20 mg Capsule,Delayed Release(Dr/Ec) 20 mg DAILY metformin 1,000 mg Tablet 1,000 mg BID Lantus Solostar U-100 Insulin 100 unit/mL (3 mL) Insulin Pen 42 unit SUBCUT BEDTIME morphine 30 mg tablet extended release 1 tab PO Q12H oxycodone-acetaminophen 5-325 mg tablet 1 tab PO Q8H PRN (Reason: pain) lisinopril 40 mg tablet 40 mg PO DAILY amlodipine 5 mg tablet 5 mg PO QAM Fish Oil 340-1,000 mg capsule 1 cap PO TID doxycycline hyclate 100 mg capsule 100 mg PO BID Qty: 20 0RF ibuprofen 600 mg tablet 600 mg PO Q8H PRN (Reason: fever or pain) Qty: 30 0RF ticagrelor 90 mg tablet 90 mg PO BID atorvastatin 80 mg tablet 80 mg PO BEDTIME tadalafil 5 mg tablet 5 mg PO DAILY 90 Days Qty: 90 1RF omega-3 acid ethyl esters 1 gram capsule 0 cap PO [place] [facility] [place] Group] - 2 days Aj Alonso MD [Primary Care Provider] - 2 days Stand Alone Forms: Work/School Release
--- NOTE | 2023-06-20 08:34 | PC.NURSE ---
ABSCESS I+D BY PROVIDER WITH MINIMAL DRAINAGE NOTED. NO ACTIVE BLEEDING, PLAN IS FOR ANTIBIOTICS AND WARM COMPRESSES
== END 2023-06-20 08:48 | disposition home or self-care (01) ==
PROVIDERS: Emergency Provider Emergency Medicine; PCP Internal Medicine
DX: L02.811 Cutaneous abscess of head [any part, except face] (principal); R51.9 Headache, unspecified; F17.210 Nicotine dependence, cigarettes, uncomplicated; Z71.6 Tobacco abuse counseling; Z79.899 Other long term (current) drug therapy
CPT/HCPCS: 10060; 36415; 80048; 85025; 99282; 99284

== ENCOUNTER 2023-07-07 11:17 | Outpatient (REF) | payer OTHER, SELFPAY ==
[2023-07-12 19:09] LABS: Testosterone, Free 45.2 pg/mL (35.0-155.0); Testosterone, Total 545 ng/dL (250-1100)
== END 2023-07-07 11:18 | disposition home or self-care (01) ==
LOC: HO.HHCL 11:17
PROVIDERS: Visit Provider Internal Medicine
DX: N52.9 Male erectile dysfunction, unspecified (principal)
CPT/HCPCS: 36415; 84402; 84403

== ENCOUNTER 2023-07-20 12:57 | Outpatient (REF) | payer OTHER, SELFPAY | END 2023-07-20 12:58 | disposition home or self-care (01) | LOC: HO.LAB 12:57 | PROVIDERS: PCP Internal Medicine; Visit Provider Surgery | DX: L73.2 Hidradenitis suppurativa (principal) | CPT/HCPCS: 10061; 87070; 87077; 87186; 87205; 99202 ==

== ENCOUNTER 2023-07-20 12:57 | Outpatient (AMB) | payer OTHER, SELFPAY ==
--- NOTE | 2023-07-20 13:06 | MHC.OFFVIS ---
Intake Vital Signs 07/20/23 13:14 Height 5 ft 11 in Weight 207 lb BMI 28.9 BP 116/62 Blood Pressure Location Rt brachial Position Sitting Pulse 82 Intake Visit Reasons: carbuncle posterior neck Intake Note: Patient was referred after ER visit for infected cyst on post neck. Finished cephalexin course 7-10d ago. Patient states cyst has been present for about 1.5 yr. C/o tenderness and pain on off for about a year. 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 Accompanied by: Self / Same As Patient Allergies No Known Allergies [No Known Allergies*] Allergy (Verified 07/20/23 13:12) Medication List - Last Reconciled 07/20/23 by Benja Barba MD amlodipine 5 mg PO QAM aspirin 81 mg PO BEDTIME atorvastatin 80 mg PO BEDTIME finasteride 5 mg PO DAILY 30 days ibuprofen 600 mg PO Q8H PRN insulin glargine (Lantus Solostar U-100 Insulin) 42 units subcut BEDTIME lisinopril 40 mg PO DAILY metformin 1,000 mg BID metoprolol succinate ER 50 mg PO QPM 90 days morphine ER 1 tab PO Q12H omega-3 acid ethyl esters 0 caps PO omega-3 fatty acids-fish oil 340-1,000 mg (Fish Oil) 1 cap PO TID omeprazole 20 mg DAILY oxycodone-acetaminophen 5-325 mg 1 tab PO Q8H PRN tadalafil 5 mg PO DAILY 90 days terazosin 5 mg PO BEDTIME 30 days ticagrelor 90 mg PO BID HPI HPI Comments History of Present Illness Details Patient with a history of hiddradinitis suppurativa of the posterior neck presents with 3 abscesses of the same posterior neck area. He was seen emergency department proximal week ago given antibiotics and sent here for follow-up. In The meantime, he has had progression of his symptoms; intense pain and discharged from the 3 areas. [facility] Medical History Abscess of hand, right Acute coronary syndrome Atherosclerotic cardiovascular disease Cellulitis Diabetes Dog bite of extremity Epidermal cyst Essential hypertension HTN (hypertension) NSTEMI (non-ST elevated myocardial infarction) Smoking Type 2 diabetes mellitus with unspecified complications Surgical History History of cardiac cath (~03/2019) S/P cardiac cath Family History Father No problems noted. Mother Leukemia HTN (hypertension) Social History Household Members: None Housing: Apartment Do you presently have visiting nurse or other home services: No Alcohol intake: current Alcohol intake frequency: holidays/special occasions only Patient Tobacco Use Status: Current everyday Tobacco user Cigarette Packs Per Day: 0.25 Cigarettes Per Day: 5 Second Hand Smoke Exposure: No Substance Use Type: Marijuana Advance Directives Date on File: 02/04/21 service: No Current occupational status: unemployed Physical Exam Vital Signs: Last Vital Signs Pulse 82 07/20/23 13:14 BP 116/62 07/20/23 13:14 BMI result Body Mass Index 28.9 Neck Other: Posterior neck demonstrates multiple areas of old hidradenitis suppurativa and prior I and D sites. Patient has 3 infected areas/abscesses measuring each approximately 2 x 2 cm of the posterior scalp. Office Procedures I&D Drain Details: Risks, benefits, alternatives incision and drainage of 3 abscesses the posterior neck reviewed the patient included but not limited to bleeding, infection recurrence, numbness, pain, scarring the patient was to proceed. All questions were answered. After appropriate positioning, patient underwent 1% lidocaine and Betadine prep incision and drainage of each of these abscesses each measuring approximately 2 x 2 cm. Each had copious amounts of purulent material retrieved. Cultures were obtained. Each wound was irrigated, secured hemostasis, packed, sterile dressings applied. Patient tolerated procedure well. [id number] of Skin Abscess, complex All charges added?: Procedure code (CPT) selection complete Assessment & Plan Assessment & Plan (1) Hidradenitis suppurativa: Code(s): L73.2 - Hidradenitis suppurativa Plan Patient will be given antibiotics, analgesics, local wound instructions, VNA service throuigh the office, and will follow-up with me in approximately in 1 weeks time or p.r.n.. Orders: Orders AMB Incision & Drainage Today L73.2 - Hidradenitis suppurativa Medications: New sulfamethoxazole-trimethoprim 400-80 mg (Bactrim) 1 tab PO BID 14 tabs 0RF hydrocodone-acetaminophen 5-325 mg Partial Fill upon patient request. 1 tab PO Q4-6H PRN 30 tabs 0RF pain Coding Level of Care Code New Pt Level 4 (62180) Diagnoses Hidradenitis suppurativa L73.2 CPT Codes I&D Drain - Drain 2: [id number] of Skin Abscess, complex ([id number])
[2023-07-20 13:14] VITALS: BP 116/62; PULSE 82; BMI 28.9
== END 2023-07-20 14:05 | disposition home or self-care (01) ==
PROVIDERS: PCP Internal Medicine; Visit Provider Surgery
DX: L73.2 Hidradenitis suppurativa (principal)
CPT/HCPCS: 10061; 99204

== ENCOUNTER → 2023-07-21 12:30 | Outpatient (BNVA) | payer OTHER, SELFPAY | PROVIDERS: PCP Internal Medicine; Visit Provider Surgery | DX: Z48.01 Encounter for change or removal of surgical wound dressing (principal) | CPT/HCPCS: 99211 ==

== ENCOUNTER → 2023-07-22 13:08 | Outpatient (BNVA) | payer OTHER, SELFPAY | PROVIDERS: PCP Internal Medicine; Visit Provider Surgery | DX: Z48.00 Encounter for change or removal of nonsurgical wound dressing (principal) | CPT/HCPCS: 99211 ==

== ENCOUNTER → 2023-07-23 12:45 | Outpatient (BNVA) | payer OTHER, SELFPAY | PROVIDERS: PCP Internal Medicine; Visit Provider Surgery | DX: Z48.01 Encounter for change or removal of surgical wound dressing (principal) | CPT/HCPCS: 99211 ==

== ENCOUNTER 2023-07-27 09:51 | Outpatient (AMB) | payer OTHER, SELFPAY ==
[2023-07-27 10:01] VITALS: BP 116/68; PULSE 80
--- NOTE | 2023-07-27 10:01 | A.OFFVIS_ITS ---
Intake Vital Signs 07/27/23 10:01 Weight 204 lb BP 116/68 Blood Pressure Location Rt brachial Position Sitting Pulse 80 Intake Visit Reasons: wound check Intake Note: Patient here for wound check on post neck. Patient c/o pain. States slowly healing. 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 He was undergoing local wound care. [facility] Medical History Epidermal cyst Abscess of hand, right Cellulitis Dog bite of extremity Acute coronary syndrome NSTEMI (non-ST elevated myocardial infarction) Smoking Essential hypertension Type 2 diabetes mellitus with unspecified complications Atherosclerotic cardiovascular disease HTN (hypertension) Diabetes Surgical History S/P cardiac cath History of cardiac cath (~03/2019) Family History Father No problems noted. Mother Leukemia HTN (hypertension) Social History Household Members: None Housing: Apartment Do you presently have visiting nurse or other home services: No Alcohol intake: current Alcohol intake frequency: holidays/special occasions only Patient Tobacco Use Status: Current everyday Tobacco user Cigarette Packs Per Day: 0.25 Cigarettes Per Day: 5 Second Hand Smoke Exposure: No Substance Use Type: Marijuana Advance Directives Date on File: 02/04/21 service: No Current occupational status: unemployed Physical Exam Vital Signs: Last Vital Signs Pulse 80 07/27/23 10:01 BP 116/68 07/27/23 10:01 Neck Other: Posterior neck wounds times 3 are healing uneventfully. Patient has chronic skin changes quite extensive of the posterior neck of his hidradenitis suppurativa. Assessment & Plan Assessment & Plan (1) Hidradenitis suppurativa: Code(s): L73.2 - Hidradenitis suppurativa Plan Patient has been given local instructions. He wants to have this area excised. Because of the magnitude of the hidradinitis suppurative of the posterior neck and scalp, recommend that he undergo a plastic surgical evaluation perhaps at [facility] because this would be quite an extensive resection, out of the realm of my comfort zone. All questions were answered. Patient otherwise follow-up p.r.n... Coding Level of Care Code Global (95508) Diagnoses Hidradenitis suppurativa L73.2
== END 2023-07-27 10:01 | disposition home or self-care (01) ==
PROVIDERS: PCP Internal Medicine; Visit Provider Surgery
DX: L73.2 Hidradenitis suppurativa (principal)
CPT/HCPCS: 99024

== ENCOUNTER → 2023-07-27 09:51 | Outpatient (BNVA) | payer OTHER, SELFPAY | PROVIDERS: PCP Internal Medicine; Visit Provider Surgery ==

== ENCOUNTER 2023-08-31 13:36 | Outpatient (REF) | payer OTHER, SELFPAY ==
--- NOTE | ~2023-08-31 | XR_ITS ---
EXAMINATION: XR CHEST CLINICAL INFORMATION: Chest pain for 2 to 3 weeks after coughing. COMPARISON: Chest x-ray 10/30/2022 TECHNIQUE: 2 views of the chest were obtained. FINDINGS: No significant abnormality is noted involving the heart, lungs, mediastinum, bony thorax or soft tissues. XR/XR chest 2V IMPRESSION: Unremarkable chest examination.
== END 2023-08-31 13:37 | disposition home or self-care (01) ==
LOC: HO.HHCX 13:36
PROVIDERS: Visit Provider Internal Medicine Geriatric Medicine
DX: R07.89 Other chest pain (principal)
CPT/HCPCS: 71046

== ENCOUNTER 2023-11-17 08:19 | Emergency (ER) | payer MEDICARE, SELFPAY ==
[2023-11-17 08:23] VITALS: BP 149/86; PULSE 80; RESP 20; TEMP 36.8; O2SAT 100; BMI 29.3
--- NOTE | 2023-11-17 09:29 | ED.BACK ---
HPI - Back Pain/Injury General Chief Complaint: Back Pain/Injury Stated Complaint: Back Pain ? Pinched Nerve Time Seen by Provider: 11/17/23 08:45 Source: patient Mode of arrival: ambulatory Limitations: no limitations History of Present Illness HPI Narrative: 63-year-old male history of hidradenitis, diabetes, hypertension presenting with complaints of left lower back pain that started this morning suddenly, worse with movement better at rest intermittently radiates to left lower extremity. Also reporting urinary frequency. No known trauma or heavy lifting. This has happened to him in the past. Denies urinary/bowel incontinence/retention, saddle paresthesias, numbness, weakness, fevers, chills, chest pain, shortness of breath Related Data Home Medications Medication Instructions Recorded Confirmed insulin glargine 100 unit/mL (3 42 unit subcut BEDTIME 10/03/20 07/21/23 mL) subcutaneous pen (Lantus Solostar U-100 Insulin) metformin 1,000 mg tablet 1,000 mg BID 10/03/20 07/21/23 omeprazole 20 mg capsule,delayed 20 mg DAILY 10/03/20 07/21/23 release lisinopril 40 mg tablet 40 mg PO DAILY 02/01/21 07/21/23 morphine 30 mg tablet,extended 1 tab PO Q12H 02/01/21 07/21/23 release oxycodone-acetaminophen 5 mg-325 1 tab PO Q8H PRN pain 02/01/21 07/21/23 mg tablet atorvastatin 80 mg tablet 80 mg PO BEDTIME 02/18/21 07/21/23 ticagrelor 90 mg tablet 90 mg PO BID 02/18/21 07/21/23 omega-3 fatty acids-fish oil 340 1 cap PO TID 03/28/21 07/21/23 mg-1,000 mg capsule (Fish Oil) amlodipine 5 mg tablet 5 mg PO QAM 05/28/21 07/21/23 omega-3 acid ethyl esters 1 gram 0 cap PO 03/19/23 07/21/23 capsule Previous Rx's Medication Instructions Recorded aspirin 81 mg tablet,delayed 81 mg PO BEDTIME #30 ea 07/27/22 release tadalafil 5 mg tablet 5 mg PO DAILY sexual activity 90 08/18/22 days #90 tabs finasteride 5 mg tablet 5 mg PO DAILY 30 days #30 tabs 01/25/23 ibuprofen 600 mg tablet 600 mg PO Q8H PRN fever or pain 04/18/23 #30 tabs terazosin 5 mg capsule 5 mg PO BEDTIME 30 days #30 caps 04/30/23 hydrocodone 5 mg-acetaminophen 325 1 tab PO Q4-6H PRN pain #30 tabs 07/20/23 mg tablet sulfamethoxazole 400 1 tab PO BID #14 tabs 07/20/23 mg-trimethoprim 80 mg tablet (Bactrim) metoprolol succinate 50 mg 50 mg PO QPM #90 tabs 09/17/23 tablet,extended release 24 hr ketorolac 10 mg tablet 10 mg PO TID PRN pain 5 days #15 11/17/23 tabs lidocaine 5 % topical patch 1 patch topical DAILY PRN pain #15 11/17/23 ea Allergies Allergy/AdvReac Type Severity Reaction Status Date / Time No Known Allergies Allergy Verified 11/17/23 08:25 [No Known Allergies*] Review of Systems Review of Systems: Constitutional : No Weight loss, No Fever, No Chills, ENT/Mouth : No Hearing loss, No Ear Pain, No Nasal Congestion, No Sinus Pain, No Hoarseness, No sore throat, No Rhinorrhea, No Swallowing Difficulty Cardiovascular : No Chest Pain, No SOB Respiratory : No Cough, No Dyspnea Gastrointestinal : No Nausea, No Vomiting, No Diarrhea, No abdominal Pain, No Hematochezia, No Melena Genitourinary : No Dysuria, No Urinary Frequency, No Hematuria, No Urinary Incontinence, Musculoskeletal : positive back pain Skin : No Skin Lesions, No rash Neuro : No Weakness, No Numbness, No Paresthesias, no loss of bowel or bladder incontinence, no saddle anesthesia Yes all other systems are reviewed and are negative [facility] Past Medical History Attestation statement: The following information was validated with the patient. Source: old records reviewed and nursing notes reviewed Onset Date is defined in the Problem List Problems that require an onset date and time if occurred within 24 hrs of arrival to the ED Aortic Dissection and Rupture; Neurologic impairment; Cardiopulmonary Arrest; Endotracheal Intubation; Insertion or Replacement of Mechanical Circulatory Assist Device Medical History Epidermal cyst Abscess of hand, right Cellulitis Dog bite of extremity Acute coronary syndrome NSTEMI (non-ST elevated myocardial infarction) Smoking Essential hypertension Type 2 diabetes mellitus with unspecified complications Atherosclerotic cardiovascular disease HTN (hypertension) Diabetes Surgical History S/P cardiac cath History of cardiac cath (~03/2019) Family History Family History Father No problems noted. Mother Leukemia HTN (hypertension) Social History Social History Household Members: None Housing: Apartment Do you presently have visiting nurse or other home services: No Alcohol intake: current Alcohol intake frequency: holidays/special occasions only Comment: refuses bed alarm Patient Tobacco Use Status: Current everyday Tobacco user Cigarette Packs Per Day: 0.25 Cigarettes Per Day: 5 Second Hand Smoke Exposure: No Substance Use Type: Marijuana Advance Directives: Yes Advance Directives on File: Yes Advance Directives Date on File: 02/04/21 service: No Current occupational status: unemployed Physical Exam Vital Signs: Vital Signs: Last Vital Signs Temp 98.3 F 11/17/23 08:23 Pulse 80 11/17/23 08:23 Resp 20 11/17/23 08:23 BP 149/86 H 11/17/23 08:23 Pulse Ox 100 11/17/23 08:23 O2 Del Method Room Air 11/17/23 08:23 BMI result Body Mass Index 29.3 vss Appearance: Alert.? Oriented X3.? No acute distress.? Head: Normocephalic, atraumatic, no step-offs or deformities Eyes: Pupils equal, round and reactive to light.? ENT: Pharynx normal.? Neck: Normal inspection.? Neck supple.? CVS: Normal heart rate and rhythm.? Pulses normal.? Respiratory: No respiratory distress.? Breath sounds normal.? Abdomen: Soft and nontender.? Skin: Skin warm and dry.? Normal skin color.? Normal skin turgor.? Extremities: No lower extremity edema.? No calf ttp. 5/5 strength to bilateral upper and lower extremities Back: No midline tenderness, no C-spine tenderness, full range of motion, no CVA tenderness bilaterally + left lumbar paraspinous muscle spasms and tenderness on palpation. Neuro: Oriented X 3.? No motor deficit.? No sensory deficit. CN 2-12 intact . Ambulating with steady gait normal coordination. No saddle paresthesias. Course Reevaluation(s) Reevaluation #1: UA without infection. No blood. Patient to be discharged pain somewhat improved will give a dose of morphine as he is not driving home family at the bedside. Ambulating with steady gait normal coordination. Educated patient on diagnosis and treatment plan, answered all question, patient verbalizes understanding. At this time patient will be discharged home, advised to return with new or worsening symptoms. Educated on worrisome signs and symptoms and when to return. At this time I feel comfortable discharge home. Time: 12:01 Medications Administered Discontinued Medications Generic Name Dose Route Start Last Admin Trade Name Freq PRN Reason Stop Dose Admin Ketorolac Tromethamine 30 mg 11/17/23 09:22 11/17/23 09:34 Ketorolac Tromethamine 30 Mg/Ml Vial IM 11/17/23 09:23 30 mg ONCE ONE Administration Lidocaine 1 patch 11/17/23 09:25 11/17/23 09:35 Lidocaine 4 % Patch Adh..Patch TRANSDERMA 11/17/23 09:26 1 patch ONCE ONE Administration Protocol Medical Decision Making Medical Decision Making [facility] Narrative: 63-year-old male presents with left-sided lumbar back pain that started this morning with urinary frequency Physical exam left lower lumbar back pain. No saddle paresthesias History and physical exam concerning for lumbar paraspinous muscle spasms versus lumbar radiculopathy versus sciatica versus urinary tract infection. Unlikely pyelonephritis, obstructing uropathy, cauda equina, cord compression, epidural abscess Plan pain control with Toradol, Lidoderm patch will obtain urine to rule out UTI and look to see if there is any blood in urine. Differential Diagnosis Differential Diagnoses: The differential diagnosis associated with the presentation includes History and physical exam concerning for lumbar paraspinous muscle spasms versus lumbar radiculopathy versus sciatica versus urinary tract infection. Unlikely pyelonephritis, obstructing uropathy, cauda equina, cord compression, epidural abscess Admission/Observation Consideration of admission/observation: Escalation of care including admission/observation considered unlikely Lab Data [facility] Lab Attestation statement: I reviewed the patient's lab results. Labs: Lab Results 11/17/23 Range/Units 11:34 Urine Color Yellow Urine Appearance Clear Urine pH 6.5 (5.0-9.0) Ur Specific Williamson 1.025 (1.005-1.025) Urine Protein Negative (Neg-Trace) mg/dL Urine Glucose (UA) 100 H (Negative) mg/dL Urine Ketones Negative (Negative) mg/dL Urine Blood Negative (Negative) Urine Nitrite Negative (Negative) Ur Leukocyte Esterase Trace H (Negative) Discharge Plan Discharge Clinical Impression: Lumbar radiculopathy Patient Disposition: Home, Self-Care Instructions: Acute Low Back Pain (ED), Lumbar Radiculopathy (ED), Back Pain (ED) Additional Instructions: Take your medications as prescribed. If you were prescribed antibiotics today, it is important that you take your medication to their entirety, do not skip any doses, do not finish them early. Follow-up with your primary care provider this week. Return to the emergency department with new or worsening symptoms. Such as fevers, chills, chest pain, shortness of breath, nausea, vomiting, dizziness, headache, vision changes, lethargy In case of emergency call 911 Toradol has been sent to your pharmacy, you tolerated this well in the department. Please take this as prescribed do not take this with ibuprofen, or other NSAIDs, do not mix this with alcohol. Side effects of this medication including increased risk for bleeding and possible kidney injury. Prescriptions: New ketorolac 10 mg tablet 10 mg PO TID PRN (Reason: pain) 5 Days Qty: 15 0RF lidocaine 5 % adhesive patch,medicated 1 patch topical DAILY PRN (Reason: pain) Qty: 15 0RF Rx Instructions: leave on most painful area for up to 12 hrs No Action aspirin 81 mg tablet,delayed release (DR/EC) 81 mg PO BEDTIME Qty: 30 3RF Rx Instructions: Please call to schedule a follow up with Dr. Sousa for next year. finasteride 5 mg tablet 5 mg PO DAILY 30 Days Qty: 30 1RF terazosin 5 mg capsule 5 mg PO BEDTIME 30 Days Qty: 30 5RF metoprolol succinate 50 mg tablet extended release 24 hr 50 mg PO QPM Qty: 90 3RF omeprazole 20 mg Capsule,Delayed Release(Dr/Ec) 20 mg DAILY metformin 1,000 mg Tablet 1,000 mg BID Lantus Solostar U-100 Insulin 100 unit/mL (3 mL) Insulin Pen 42 unit SUBCUT BEDTIME morphine 30 mg tablet extended release 1 tab PO Q12H oxycodone-acetaminophen 5-325 mg tablet 1 tab PO Q8H PRN (Reason: pain) lisinopril 40 mg tablet 40 mg PO DAILY amlodipine 5 mg tablet 5 mg PO QAM Fish Oil 340-1,000 mg capsule 1 cap PO TID ibuprofen 600 mg tablet 600 mg PO Q8H PRN (Reason: fever or pain) Qty: 30 0RF ticagrelor 90 mg tablet 90 mg PO BID atorvastatin 80 mg tablet 80 mg PO BEDTIME tadalafil 5 mg tablet 5 mg PO DAILY 90 Days Qty: 90 1RF omega-3 acid ethyl esters 1 gram capsule 0 cap PO sulfamethoxazole-trimethoprim [Bactrim] 400-80 mg tablet 1 tab PO BID Qty: 14 0RF hydrocodone-acetaminophen 5-325 mg tablet 1 tab PO Q4-6H PRN (Reason: pain) Qty: 30 0RF Rx Instructions: Partial Fill upon patient request. Referrals: Aj Alonso MD [Primary Care Provider] - 1 day
--- NOTE | 2023-11-17 09:38 | PC.NURSE ---
pt a&ox3, c/o 08/24 lower back pain, pt medicated per order, call nunn within reach, will continue tomonitor
--- NOTE | 2023-11-17 12:06 | PC.NURSE ---
pt medicated with morphine for 10/10 pain, family to drive patient home.
== END 2023-11-17 12:08 | disposition home or self-care (01) ==
PROVIDERS: Emergency Provider Emergency Medicine; PCP Internal Medicine
DX: M54.16 Radiculopathy, lumbar region (principal); R35.0 Frequency of micturition; M54.50 Low back pain, unspecified; I10 Essential (primary) hypertension; E11.9 Type 2 diabetes mellitus without complications; Z79.899 Other long term (current) drug therapy
CPT/HCPCS: 81001; 96372; 99284; J1885

== ENCOUNTER 2023-11-30 19:15 | Outpatient (REF) | payer MEDICARE, MEDICAID, SELFPAY ==
--- NOTE | ~2023-11-30 | MR_ITS ---
EXAMINATION: MR lumbar spine wo con MR/MR lumbar spine wo con FINDINGS/IMPRESSION: The ordered MRI examination could not be performed due to claustrophobia. The patient may be able to undergo the MRI examination at a later time after receiving pre-treatment for claustrophobia. No images were obtained.
== END 2023-11-30 19:16 | disposition home or self-care (01) ==
LOC: HO.MRI 19:15
PROVIDERS: PCP Internal Medicine; Visit Provider Emergency Medicine
DX: M54.42 Lumbago with sciatica, left side (principal); G89.29 Other chronic pain
CPT/HCPCS: 72148

== ENCOUNTER 2023-12-15 14:12 | Emergency (ER) | payer MEDICARE, MEDICAID, SELFPAY ==
[2023-12-15 14:47] VITALS: BP 147/83; PULSE 84; RESP 16; TEMP 36.6; O2SAT 98; BMI 29.3
--- NOTE | 2023-12-15 14:50 | ED_ITS ---
HPI - General Adult General Chief complaint: Back Pain/Injury Stated complaint: Cyst Pinched Nerve L Leg Time Seen by Provider: 12/15/23 16:25 Source: patient Mode of arrival: ambulatory Limitations: no limitations History of Present Illness HPI narrative: Patient is a 63 yr old male with a past medical history of hidradenitis suppurative, BPH, HTN, DM2, CAD presenting with cyst on the left butt buttocks that has been present for the past few days. Patient reports it is painful and hard. The site is not draining. Denies fever, chills, SOB, chest pain, numbness, tingling. Related Data Home Medications Medication Instructions Recorded Confirmed insulin glargine 100 unit/mL (3 42 unit subcut BEDTIME 10/03/20 07/21/23 mL) subcutaneous pen (Lantus Solostar U-100 Insulin) metformin 1,000 mg tablet 1,000 mg BID 10/03/20 07/21/23 omeprazole 20 mg capsule,delayed 20 mg DAILY 10/03/20 07/21/23 release lisinopril 40 mg tablet 40 mg PO DAILY 02/01/21 07/21/23 morphine 30 mg tablet,extended 1 tab PO Q12H 02/01/21 07/21/23 release oxycodone-acetaminophen 5 mg-325 1 tab PO Q8H PRN pain 02/01/21 07/21/23 mg tablet atorvastatin 80 mg tablet 80 mg PO BEDTIME 02/18/21 07/21/23 ticagrelor 90 mg tablet 90 mg PO BID 02/18/21 07/21/23 omega-3 fatty acids-fish oil 340 1 cap PO TID 03/28/21 07/21/23 mg-1,000 mg capsule (Fish Oil) amlodipine 5 mg tablet 5 mg PO QAM 05/28/21 07/21/23 omega-3 acid ethyl esters 1 gram 0 cap PO 03/19/23 07/21/23 capsule Previous Rx's Medication Instructions Recorded aspirin 81 mg tablet,delayed 81 mg PO BEDTIME #30 ea 07/27/22 release tadalafil 5 mg tablet 5 mg PO DAILY sexual activity 90 08/18/22 days #90 tabs finasteride 5 mg tablet 5 mg PO DAILY 30 days #30 tabs 01/25/23 ibuprofen 600 mg tablet 600 mg PO Q8H PRN fever or pain 04/18/23 #30 tabs terazosin 5 mg capsule 5 mg PO BEDTIME 30 days #30 caps 04/30/23 hydrocodone 5 mg-acetaminophen 325 1 tab PO Q4-6H PRN pain #30 tabs 07/20/23 mg tablet sulfamethoxazole 400 1 tab PO BID #14 tabs 07/20/23 mg-trimethoprim 80 mg tablet (Bactrim) metoprolol succinate 50 mg 50 mg PO QPM #90 tabs 09/17/23 tablet,extended release 24 hr ketorolac 10 mg tablet 10 mg PO TID PRN pain 5 days #15 11/17/23 tabs lidocaine 5 % topical patch 1 patch topical DAILY PRN pain #15 11/17/23 ea cephalexin 500 mg tablet 500 mg PO Q6H 10 days #40 tabs 12/15/23 doxycycline hyclate 100 mg capsule 100 mg PO BID 10 days #20 caps 12/15/23 Allergies Allergy/AdvReac Type Severity Reaction Status Date / Time No Known Allergies Allergy Verified 11/17/23 08:25 [No Known Allergies*] Review of Systems Review of Systems: Constitutional : No Weight loss, No Fever, No Chills, No Fatigue, No Malaise ENT/Mouth : No sore throat, No Rhinorrhea Eyes: No Eye Pain, No Swelling, No Redness Cardiovascular : No Chest Pain, No SOB, No Dyspnea on Exertion, No Orthopnea, No Edema, No Palpitations Respiratory : No Cough, No Sputum, No Wheezing Gastrointestinal : No Nausea, No Vomiting, No Diarrhea, No Constipation, No abdominal Pain, No Hematochezia, No Melena Genitourinary : No Dysuria, No Urinary Frequency, No Hematuria, Musculoskeletal : No joint pain, No Myalgias, No Joint Swelling Skin : + cyst. No Skin Lesions, No rash Neuro : No Weakness, No Numbness, No Dizziness, No Headache Psych : No Anxiety/Panic, No Depression Heme/Lymph: No Bruising, No Bleeding,No Lymphadenopathy Endocrine : No Polyuria, No Polydipsia All other systems reviewed and are negative Yes all other systems are reviewed and are negative [facility] Past Medical History Attestation statement: The following information was validated with the patient. Source: old records reviewed and nursing notes reviewed Medical History Epidermal cyst Abscess of hand, right Cellulitis Dog bite of extremity Acute coronary syndrome NSTEMI (non-ST elevated myocardial infarction) Smoking Essential hypertension Type 2 diabetes mellitus with unspecified complications Atherosclerotic cardiovascular disease HTN (hypertension) Diabetes Surgical History S/P cardiac cath History of cardiac cath (~03/2019) Family History Family History Father No problems noted. Mother Leukemia HTN (hypertension) Social History Social History Household Members: None Housing: Apartment Do you presently have visiting nurse or other home services: No Alcohol intake: current Alcohol intake frequency: holidays/special occasions only Comment: refuses bed alarm Patient Tobacco Use Status: Current everyday Tobacco user Cigarette Packs Per Day: 0.25 Cigarettes Per Day: 5 Second Hand Smoke Exposure: No Substance Use Type: Marijuana Advance Directives: Yes Advance Directives on File: Yes Advance Directives Date on File: 02/04/21 service: No Current occupational status: unemployed Physical Exam ED Vital Signs: Vital Signs - 24 hr 12/15/23 14:47 Temperature 98 F Pulse Rate 84 Respiratory Rate 16 Blood Pressure 147/83 H Pulse Oximetry 98 Oxygen Delivery Method Room Air BMI result Body Mass Index 29.3 hypertension Appearance: Alert.? Oriented X3.? No acute distress.? Head: Normocephalic, atraumatic, no step-offs or deformities Eyes: Pupils equal, round and reactive to light.? CVS: Normal heart rate and rhythm.? Pulses normal.? Respiratory: No respiratory distress.? Breath sounds normal.? Abdomen: Soft and nontender.? Skin: 4cm X 2cm cyst of the outer left buttock with no fluctance just induration, tenderness to palpation and warm to touch. Skin warm and dry.? Normal skin color.? Normal skin turgor.? Extremities: No lower extremity edema.? No calf ttp. 5/5 strength to bilateral upper and lower extremities Back: No midline tenderness, no C-spine tenderness, full range of motion, no CVA tenderness bilaterally Neuro: Oriented X 3.? No motor deficit.? No sensory deficit. CN 2-12 intact Course Course Course Narrative: RME: 63 yold male presents to the ED for pinched back nerve exacerbatoin and left gluteal/thigh abscess. patient states no trauma. to bE Seen in [facility] Reevaluation(s) Reevaluation #1: Patient to be discharged with antibiotics. Educated patient on diagnosis and treatment plan, answered all question, patient verbalizes understanding. At this time patient will be discharged home, advised to return with new or worsening symptoms. Educated on worrisome signs and symptoms and when to return. At this time I feel comfortable discharge home. To note initially patient mentioned back pain however he states this is not something he is come in to get seen for today he is being seen by a specialist for this he has no acute complaints of back pain. No signs of cauda equina, epidural abscess on exam. Patient ambulatory with steady gait normal coordination he states he is scheduled to get a cortisone injection in his seeing a back specialist out of [facility]. Time: 17:49 Medical Decision Making Medical Decision Making MDM Narrative: Patient is a 63 yr old male with a past medical history of hidradenitis suppurative, BPH, HTN, DM2, CAD presenting with a cyst on the left butt buttoc ks. Patient reports it is painful. The site is not draining. PE significant for a 4cm X 2cm cyst of the outer left buttock with no fluctance just induration, tenderness to palpation and warm to touch. Skin warm and dry.? Normal skin color.? Normal skin turgor.? Likely infected epidermal inclusion cyst vs HS flare vs abscess/developing abscess. Unlikely lipoma vs cellulitis or necrotizing infection Plan antibiotics, warm compresses Differential Diagnosis Differential Diagnoses: The differential diagnosis associated with the pres entation includes Likely infected epidermal inclusion cyst vs HS flare vs abscess/ developing abscess. Unlikely lipoma vs cellulitis or necrotizing infection Admission/Observation Consideration of admission/observation: Escalation of care including admission/observation considered Lab Data Labs: No indication for labs no signs of systemic illness Independent Historian Clinical information obtained from an independent historian. History obtained from or confirmed by: Spouse External Record Review External record reviewed: Inpatient record, Outpatient record, Prior outpatient labs, Prior outpatient radiology, Primary care record and Outside ED record Core Measures AMI core measures followed: Yes Discharge Plan Discharge Clinical Impression: Abscess Patient Disposition: Home, Self-Care Instructions: Abscess Follow-up (ED) Additional Instructions: Take your medications as prescribed. If you were prescribed antibiotics today, it is important that you take your medication to their entirety, do not skip any doses, do not finish them early. Follow-up with your primary care provider this week. Return to the emergency department with new or worsening symptoms. Such as fevers, chills, chest pain, shortness of breath, nausea, vomiting, dizziness, headache, vision changes, lethargy In case of emergency call 911 Apply warm compresses to the area 3 to 4 times a day if possible. It is possible that this will turn into an abscess. If that is the case you should be seen again you can go to your PCP or in urgent Care. Prescriptions: New doxycycline hyclate 100 mg capsule 100 mg PO BID 10 Days Qty: 20 0RF cephalexin 500 mg tablet 500 mg PO Q6H 10 Days Qty: 40 0RF No Action aspirin 81 mg tablet,delayed release (DR/EC) 81 mg PO BEDTIME Qty: 30 3RF Rx Instructions: Please call to schedule a follow up with Dr. Sousa for next year. finasteride 5 mg tablet 5 mg PO DAILY 30 Days Qty: 30 1RF terazosin 5 mg capsule 5 mg PO BEDTIME 30 Days Qty: 30 5RF metoprolol succinate 50 mg tablet extended release 24 hr 50 mg PO QPM Qty: 90 3RF omeprazole 20 mg Capsule,Delayed Release(Dr/Ec) 20 mg DAILY metformin 1,000 mg Tablet 1,000 mg BID Lantus Solostar U-100 Insulin 100 unit/mL (3 mL) Insulin Pen 42 unit SUBCUT BEDTIME morphine 30 mg tablet extended release 1 tab PO Q12H oxycodone-acetaminophen 5-325 mg tablet 1 tab PO Q8H PRN (Reason: pain) lisinopril 40 mg tablet 40 mg PO DAILY amlodipine 5 mg tablet 5 mg PO QAM Fish Oil 340-1,000 mg capsule 1 cap PO TID ibuprofen 600 mg tablet 600 mg PO Q8H PRN (Reason: fever or pain) Qty: 30 0RF ketorolac 10 mg tablet 10 mg PO TID PRN (Reason: pain) 5 Days Qty: 15 0RF lidocaine 5 % adhesive patch,medicated 1 patch topical DAILY PRN (Reason: pain) Qty: 15 0RF Rx Instructions: leave on most painful area for up to 12 hrs ticagrelor 90 mg tablet 90 mg PO BID atorvastatin 80 mg tablet 80 mg PO BEDTIME tadalafil 5 mg tablet 5 mg PO DAILY 90 Days Qty: 90 1RF omega-3 acid ethyl esters 1 gram capsule 0 cap PO sulfamethoxazole-trimethoprim [Bactrim] 400-80 mg tablet 1 tab PO BID Qty: 14 0RF hydrocodone-acetaminophen 5-325 mg tablet 1 tab PO Q4-6H PRN (Reason: pain) Qty: 30 0RF Rx Instructions: Partial Fill upon patient request. Referrals: Aj Alonso MD [Primary Care Provider] - 2 days Interventions: ED Discharge Assessment Last Done: 12/15/23 17:40 Discharge Date/Time: 12/15/23 17:41
== END 2023-12-15 17:41 | disposition home or self-care (01) ==
PROVIDERS: Emergency Provider Emergency Medicine; PCP Internal Medicine
DX: L02.31 Cutaneous abscess of buttock (principal); E11.9 Type 2 diabetes mellitus without complications; I10 Essential (primary) hypertension; F17.210 Nicotine dependence, cigarettes, uncomplicated; Z79.4 Long term (current) use of insulin; Z79.899 Other long term (current) drug therapy
CPT/HCPCS: 99282; 99283

== ENCOUNTER 2024-03-23 12:08 | Outpatient (REF) | payer OTHER, SELFPAY ==
[2024-03-23 14:30] LABS: Alanine Aminotransferase 33 U/L (0-40); Alkaline Phosphatase 66 U/L (39-117); Anion Gap 14 (12-20); Aspartate Amino Transferase 26 U/L (5-37); Bilirubin Total 0.5 mg/dL (0.0-1.0); Blood Urea Nitrogen 13 mg/dL (9-16); Calcium 9.3 mg/dL (8.4-10.2); Carbon Dioxide 25 mmol/L (22-29); Chloride 105 mmol/L (96-108); Cholesterol 88 mg/dL (<200); Estimated Glomerular Filt Rate > 60; Glucose Random 159 mg/dL (60-115); HDL Cholesterol 36 mg/dL (>40); LDL Cholesterol Calculated 43 mg/dL (<100); Potassium 4.1 mmol/L (3.3-5.1); Sodium 140 mmol/L (135-145); Total Protein 7.4 g/dL (6.5-8.0); Triglycerides 46 mg/dL (<150)
[2024-03-23 14:41] LABS: Prostate Specific Antigen Scr 10.27 ng/mL (<0.05-4.0)
== END 2024-03-23 12:09 | disposition home or self-care (01) ==
LOC: HO.HHCL 12:08
PROVIDERS: Visit Provider Internal Medicine
DX: E11.9 Type 2 diabetes mellitus without complications (principal); Z79.4 Long term (current) use of insulin; N52.9 Male erectile dysfunction, unspecified; Z12.5 Encounter for screening for malignant neoplasm of prostate
CPT/HCPCS: 36415; 80053; 80061; 84153

== ENCOUNTER 2024-03-24 13:38 | Outpatient (AMB) | payer OTHER, MEDICAID, SELFPAY ==
[2024-03-24 13:36] VITALS: PULSE 91; TEMP 36.9; O2SAT 99; BMI 30.4
--- NOTE | 2024-03-24 13:36 | A.OFFVIS_ITS ---
Vital Signs 3 03/24/24 13:36 Height 5 ft 11 in Weight 218 lb BMI 30.4 Pulse 91 Pulse Source Pulse Oximeter Temp 98.5 F Temp Source Oral Pulse Oximetry (%) 99 Intake Visit Reasons: reff HHC carbuncle on neck Allergies No Known Allergies [No Known Allergies*] Allergy (Verified 03/24/24 13:37) HPI HPI reff HHC carbuncle on neck: Details: He has had posterior neck carbuncle. It doesnt go away completely with antibiotics but is better with Doxycycline. This has been present for many months. [facility] Medical History Epidermal cyst Abscess of hand, right Cellulitis Dog bite of extremity Acute coronary syndrome NSTEMI (non-ST elevated myocardial infarction) Smoking Essential hypertension Type 2 diabetes mellitus with unspecified complications Atherosclerotic cardiovascular disease HTN (hypertension) Diabetes Surgical History S/P cardiac cath History of cardiac cath (~03/2019) Family History Father No problems noted. Mother Leukemia HTN (hypertension) Social History Household Members: None Housing: Apartment Do you presently have visiting nurse or other home services: No Alcohol intake: current Alcohol intake frequency: holidays/special occasions only Comment: refuses bed alarm Patient Tobacco Use Status: Current everyday Tobacco user Cigarette Packs Per Day: 0.25 Cigarettes Per Day: 5 Second Hand Smoke Exposure: No Substance Use Type: Marijuana Advance Directives Date on File: 02/04/21 service: No Current occupational status: unemployed Review of Systems Const All systems reviewed & are unremarkable except as noted in HPI and below Physical Exam Vital Signs: Last Vital Signs Temp 98.5 F 03/24/24 13:36 Pulse 91 03/24/24 13:36 Pulse Ox 99 03/24/24 13:36 BMI result Body Mass Index 30.4 Const Other: General: cooperative Orientation/consciousness: patient oriented x3 HEENT Head: Yes normal to inspection Mouth: Normal oral and palatal mucosa present Eyes General: appearance normal, both eyes and all related structures Pupils: Equal, round and reactive pupils present Neck Other: per picture Resp Effort & Inspection: normal respiratory effort Cardio Rate: regular rate Rhythm: regular rhythm GI Palpation (GI): Soft to palpation and nontender General: Yes no CVA tenderness Back/Spine/Pelvis Back: no CVA tenderness Skin General skin exam: no rashes or lesions noted Neuro General: patient oriented x3 Cranial nerves: Yes CN's II-XII intact bilaterally and Yes Equal, round and reactive pupils present Extrem General: Yes normal to inspection Psych Appearance: grossly normal Assessment & Plan Assessment & Plan (1) Hidradenitis suppurativa: Comment: Likely carbuncle area Code(s): L73.2 - Hidradenitis suppurativa Category: Surgical Plan: Doxycycline for a month and maybe continuous Clindamycin cream one week as needed. Being careful not to cut self when shaving in area. Medications: New 2 clindamycin-benzoyl peroxide 1-5 % 1 appl topical BID 50 grams 0RF 30 days doxycycline hyclate 100 mg PO BID 60 caps 0RF 30 days Coding Level of Care Code New Pt Level 3 (96000) Diagnoses Hidradenitis suppurativa L73.2
== END 2024-03-24 14:20 | disposition home or self-care (01) ==
PROVIDERS: PCP Internal Medicine; Visit Provider Internal Medicine
DX: L73.2 Hidradenitis suppurativa (principal)
CPT/HCPCS: 99203

== ENCOUNTER → 2024-03-24 13:38 | Outpatient (BNVA) | payer OTHER, SELFPAY | PROVIDERS: PCP Internal Medicine; Visit Provider Internal Medicine | DX: L73.2 Hidradenitis suppurativa (principal) | CPT/HCPCS: 99202 ==

== ENCOUNTER 2024-04-20 08:49 | Outpatient (AMB) | payer OTHER, SELFPAY ==
--- NOTE | 2024-04-20 09:30 | MHC.OFFVIS ---
Intake Visit Reasons: PSA follow up(set) Intake Note: Patient is Present for Follow Up Urology Medication: Terazosin, Finasteride, Tadalafil (Patient is unsure if he takes these medications) Antibiotic Allergies:None Blood Thinners: Aspirin Allergies No Known Allergies [No Known Allergies*] Allergy (Verified 04/20/24 09:33) Medication List - Last Reconciled 04/20/24 by Don Del Rio MD amlodipine 5 mg PO QAM aspirin 81 mg PO BEDTIME atorvastatin 80 mg PO BEDTIME doxycycline hyclate 100 mg PO BID 30 days finasteride 5 mg PO DAILY 90 days insulin glargine (Lantus Solostar U-100 Insulin) 42 units subcut BEDTIME lidocaine 5% 1 patch topical DAILY PRN lisinopril 40 mg PO DAILY metformin 1,000 mg BID metoprolol succinate ER 50 mg PO QPM omega-3 acid ethyl esters 0 caps PO omega-3 fatty acids-fish oil 340-1,000 mg (Fish Oil) 1 cap PO TID omeprazole 20 mg DAILY tadalafil 5 mg PO DAILY 90 days terazosin 5 mg PO BEDTIME 90 days ticagrelor 90 mg PO BID HPI Comments Details: Cruz navarro a is a pleasant male. He is a patient of Dr. Alonso. 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 Recommend evaluation of testosterone. Erectile dysfunction Progressive Trouble maintaining erections Trial daily tadalafil 5 mg Elevated PSA Prior PSA high Prior negative biopsy PSA 9 PSA - 08/03 11.4, 08/06 7.0, 04/07 10.3 Reports increasing nocturia x3 with weakness of stream Current therapy includes tamsulosin and finasteride OBDULIO large prostate Bladder ultrasound [facility] Medical History Epidermal cyst Abscess of hand, right Cellulitis Dog bite of extremity Acute coronary syndrome NSTEMI (non-ST elevated myocardial infarction) Smoking Essential hypertension Type 2 diabetes mellitus with unspecified complications Atherosclerotic cardiovascular disease HTN (hypertension) Diabetes Surgical History S/P cardiac cath History of cardiac cath (~03/2019) Family History Father No problems noted. Mother Leukemia HTN (hypertension) Social History Household Members: None Housing: Apartment Do you presently have visiting nurse or other home services: No Alcohol intake: current Alcohol intake frequency: holidays/special occasions only Comment: refuses bed alarm Patient Tobacco Use Status: Current everyday Tobacco user Cigarette Packs Per Day: 0.25 Cigarettes Per Day: 5 Second Hand Smoke Exposure: No Substance Use Type: Marijuana Advance Directives Date on File: 02/04/21 service: No Current occupational status: unemployed Review of Systems Const Denies chills and Denies fever(s) Card Reports no additional complaints and Denies syncope Resp Denies cough GI Denies abdominal pain and Denies heartburn Reports as per HPI and Denies change in libido Neuro Denies syncope Psych Denies change in libido Endo Denies change in libido Physical Exam Const General: cooperative, healthy appearing, comfortable and no acute distress Orientation/consciousness: patient oriented x3 HEENT Face and sinus: Yes normal facial exam Mouth: moist mucous membranes Neck Neck: Yes normal visual inspection, Yes full ROM and Yes trachea midline Chest Chest palpation & inspection: normal inspection of the chest Resp Effort & Inspection: normal respiratory effort, able to speak in complete sentences and no respiratory distress GI Inspection: Yes normal to inspection Back/Spine/Pelvis Cervical Spine: normal cervical lordosis Thoracic/Lumbar Spine: thoracic and lumbar spine normal to inspection Skin General skin exam: no rashes or lesions noted Neuro General: patient oriented x3, gait normal, tone normal and moves all extremities Extrem General: Yes normal to inspection and Yes capillary refill normal Assessment & Plan Assessment & Plan (1) BPH w urinary obs/LUTS: Code(s): N40.1 - Benign prostatic hyperplasia with lower urinary tract symptoms; N13.8 - Other obstructive and reflux uropathy Category: Medical (2) Nocturia more than twice per night: Code(s): R35.1 - Nocturia Category: Medical (3) Elevated PSA: Code(s): R97.20 - Elevated prostate specific antigen [PSA] Category: Medical (4) Low libido: Code(s): R68.82 - Decreased libido Category: Medical Plan Plan MRI prostate Testosterone labs Restart prostate medications Office cystoscopy Orders: Orders MR pelvis wo/w con Today C61 - Malignant neoplasm of prostate, R97.20 - Elevated prostate specific antigen [PSA] Testosterone, Total Today C61 - Malignant neoplasm of prostate, R68.82 - Decreased libido Patient Instructions: Imaging studies, laboratory and physical exam results were discussed and reviewed in detail. No major barriers to patient understanding were identified. An opportunity to ask questions regarding the treatment plan was provided. All questions were answered. The patient expressed understanding and agreement with the above treatment plan. The patient is aware they should contact our office by phone for worsening of their current condition or the appearance of new urologic symptoms. Compliance is encouraged with any medications and followup testing that is ordered. It is a privilege to participate in the urologic care of your patient. If you have any questions or concerns regarding treatment for the above conditions, or other urologic issues, please do not hesitate to contact me. The office telephone contact is [phone]. This note is constructed using voice recognition software. While every effort has been made to ensure accuracy cane stripper errors may have been included. Yours sincerely, Dr Don Del Rio MD, [facility] - Urology Providers of Expert, Compassionate Care for the Genitourinary System Coding Level of Care Code Est Pt Level 4 (49430) Diagnoses BPH w urinary obs/LUTS N40.1; N13.8 Nocturia more than twice per night R35.1 Elevated PSA R97.20 Low libido R68.82
== END 2024-04-20 10:08 | disposition home or self-care (01) ==
PROVIDERS: PCP Internal Medicine; Visit Provider Urology
DX: N40.1 Benign prostatic hyperplasia with lower urinary tract symptoms (principal); N13.8 Other obstructive and reflux uropathy; R35.1 Nocturia; R97.20 Elevated prostate specific antigen [PSA]; R68.82 Decreased libido
CPT/HCPCS: 99213

== ENCOUNTER → 2024-04-20 08:49 | Outpatient (BNVA) | payer OTHER, SELFPAY | PROVIDERS: PCP Internal Medicine; Visit Provider Urology | DX: N40.1 Benign prostatic hyperplasia with lower urinary tract symptoms (principal); N13.8 Other obstructive and reflux uropathy; R35.1 Nocturia; R68.82 Decreased libido; R97.20 Elevated prostate specific antigen [PSA] | CPT/HCPCS: 99212 ==

== ENCOUNTER 2024-05-29 13:30 | Outpatient (AMB) | payer OTHER, SELFPAY ==
[2024-05-29 14:02] VITALS: PULSE 81; TEMP 36.8; O2SAT 98; BMI 28.6
--- NOTE | 2024-05-29 14:02 | MHC.OFFVIS ---
Vital Signs 05/29/24 14:02 Height 5 ft 11 in Weight 205 lb BMI 28.6 Pulse 81 Pulse Source Pulse Oximeter Temp 98.3 F Temp Source Oral Pulse Oximetry (%) 98 Oxygen Delivery Method Room Air Intake Visit Reasons: f/u 2 Hidradenitis suppurativa Allergies No Known Allergies [No Known Allergies*] Allergy (Verified 05/29/24 14:11) HPI HPI f/u 2 Hidradenitis suppurativa: Details: I talked to [facility] pharmacy. Patient got somewhat better on Clindamycin ,but pharmacy said they held his Doxycycline since he supposedly already had some. He says carbuncles slightly better but still there and painful. [facility] Medical History Epidermal cyst Abscess of hand, right Cellulitis Dog bite of extremity Acute coronary syndrome NSTEMI (non-ST elevated myocardial infarction) Smoking Essential hypertension Type 2 diabetes mellitus with unspecified complications Atherosclerotic cardiovascular disease HTN (hypertension) Diabetes Surgical History S/P cardiac cath History of cardiac cath (~03/2019) Family History Father No problems noted. Mother Leukemia HTN (hypertension) Social History Household Members: None Housing: Apartment Do you presently have visiting nurse or other home services: No Alcohol intake: current Alcohol intake frequency: holidays/special occasions only Comment: refuses bed alarm Patient Tobacco Use Status: Current everyday Tobacco user Cigarette Packs Per Day: 0.25 Cigarettes Per Day: 5 Second Hand Smoke Exposure: No Substance Use Type: Marijuana Advance Directives Date on File: 02/04/21 service: No Current occupational status: unemployed Review of Systems Const All systems reviewed & are unremarkable except as noted in HPI and below Physical Exam Vital Signs: Last Vital Signs Temp 98.3 F 05/29/24 14:02 Pulse 81 05/29/24 14:02 Pulse Ox 98 05/29/24 14:02 Oxygen Delivery Method Room Air 05/29/24 14:02 BMI result Body Mass Index 28.6 HEENT Other: carbuncles back of head Assessment & Plan Assessment & Plan (1) Hidradenitis suppurativa: Comment: Likely carbuncle area Code(s): L73.2 - Hidradenitis suppurativa Category: Surgical Plan: Start po Doxycycline and Clindamycin cream One month supply and refills given See us soon,3 months or so. Coding Level of Care Code Est Pt Level 3 (82745) Diagnoses Hidradenitis suppurativa L73.2
== END 2024-05-29 14:47 | disposition home or self-care (01) ==
LOC: HO.HID 13:30
PROVIDERS: PCP Internal Medicine; Visit Provider Internal Medicine
DX: L73.2 Hidradenitis suppurativa (principal)
CPT/HCPCS: 99213

== ENCOUNTER → 2024-05-29 13:30 | Outpatient (BNVA) | payer OTHER, SELFPAY | PROVIDERS: PCP Internal Medicine; Visit Provider Internal Medicine | DX: L73.2 Hidradenitis suppurativa (principal) | CPT/HCPCS: 99212 ==

== ENCOUNTER 2024-06-28 10:42 | Outpatient (AMB) | payer OTHER, SELFPAY ==
--- NOTE | 2024-06-28 11:04 | A.OFFVIS_ITS ---
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 Allergies No Known Allergies [No Known Allergies*] Allergy (Verified 06/28/24 11:08) Medication List - Last Reconciled 06/28/24 by Don Del Rio MD amlodipine 5 mg PO QAM aspirin 81 mg PO BEDTIME atorvastatin 80 mg PO BEDTIME doxycycline hyclate 100 mg PO BID 30 days finasteride 5 mg PO DAILY 90 days insulin glargine (Lantus Solostar U-100 Insulin) 42 units subcut BEDTIME lidocaine 5% 1 patch topical DAILY PRN lisinopril 40 mg PO DAILY metformin 1,000 mg BID metoprolol succinate ER 50 mg PO QPM omega-3 acid ethyl esters 0 caps PO omega-3 fatty acids-fish oil 340-1,000 mg (Fish Oil) 1 cap PO TID omeprazole 20 mg DAILY sildenafil 100 mg PO ONCE PRN 30 days tadalafil 5 mg PO DAILY 90 days terazosin 5 mg PO BEDTIME 90 days ticagrelor 90 mg PO BID HPI Comments Details: Cruz is a is a pleasant male. He is a patient of Dr. Alonso. 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 Persistent BPH symptoms Despite combination therapy Recommend GreenLight laser prostate This will be organized Prostate MRI 100 cc no suspicious lesions Laboratories - 2022 T 545 Erectile dysfunction Progressive Trouble maintaining erections Trial daily tadalafil 5 mg Elevated PSA Prior PSA high Prior negative biopsy PSA 9 PSA - 08/03 11.4, 08/06 7.0, 04/07 10.3 Reports increasing nocturia x3 with weakness of stream Current therapy includes tamsulosin and finasteride OBDULIO large prostate Bladder ultrasound [facility] Medical History Epidermal cyst Abscess of hand, right Cellulitis Dog bite of extremity Acute coronary syndrome NSTEMI (non-ST elevated myocardial infarction) Smoking Essential hypertension Type 2 diabetes mellitus with unspecified complications Atherosclerotic cardiovascular disease HTN (hypertension) Diabetes Surgical History S/P cardiac cath History of cardiac cath (~03/2019) Family History Father No problems noted. Mother Leukemia HTN (hypertension) Social History Household Members: None Housing: Apartment Do you presently have visiting nurse or other home services: No Alcohol intake: current Alcohol intake frequency: holidays/special occasions only Comment: refuses bed alarm Patient Tobacco Use Status: Current everyday Tobacco user Cigarette Packs Per Day: 0.25 Cigarettes Per Day: 5 Second Hand Smoke Exposure: No Substance Use Type: Marijuana Advance Directives Date on File: 02/04/21 service: No Current occupational status: unemployed Review of Systems Const Denies chills and Denies fever(s) Card Reports no additional complaints and Denies syncope Resp Denies cough GI Denies abdominal pain and Denies heartburn Reports as per HPI and Denies change in libido Neuro Denies syncope Psych Denies change in libido Endo Denies change in libido Physical Exam Const General: cooperative, healthy appearing, comfortable and no acute distress Orientation/consciousness: patient oriented x3 HEENT Face and sinus: Yes normal facial exam Mouth: moist mucous membranes Neck Neck: Yes normal visual inspection, Yes full ROM and Yes trachea midline Chest Chest palpation & inspection: normal inspection of the chest Resp Effort & Inspection: normal respiratory effort, able to speak in complete sentences and no respiratory distress GI Inspection: Yes normal to inspection Back/Spine/Pelvis Cervical Spine: normal cervical lordosis Thoracic/Lumbar Spine: thoracic and lumbar spine normal to inspection Skin General skin exam: no rashes or lesions noted Neuro General: patient oriented x3, gait normal, tone normal and moves all extremities Extrem General: Yes normal to inspection and Yes capillary refill normal Results AMB Urinalysis, Automated UA Leukoctes 15 Jc/uL Last Edit by TRU Alfaro on 06/28/24 11:46 UA Nitrite Negative Last Edit by TRU Alfaro on 06/28/24 11:46 UA Urobilinogen 0.2 mg/dL Last Edit by TRU Alafro on 06/28/24 11:4 6 UA Protein 15 mg/dL Last Edit by Jennifer Patel, RMA on 06/28/24 11:46 UA pH 5.5 Last Edit by Jennifer Patel, RMA on 06/28/24 11:46 UA Blood 10 Hakeem/uL Last Edit by Jennifer Patel, RMA on 06/28/24 11:46 UA Specific [place] 1.020 Last Edit by Jennifer Patel, RMA on 06/28/24 11: 46 UA Ketone Positive Last Edit by Jennifer Patel RMA on 06/28/24 11:46 UA Bilirubin 0 mg/dL Last Edit by Jennifer Patel, RMA on 06/28/24 11:46 UA Glucose 0 mg/dL Last Edit by Jennifer Patel RMA on 06/28/24 11:46 Results Reviewed Results Reviewed: Laboratory Last Values Urine pH (Auto) 5.5 06/28/24 11:09 Specific [place] (Auto) 1.020 06/28/24 11:09 Urine Protein (Auto) 15 mg/dL 06/28/24 11:09 Glucose (UA)(Auto) 0 mg/dL 06/28/24 11:09 Urine Ketones (Auto) Positive 06/28/24 11:09 Urine Blood (Auto) 10 Hakeem/uL 06/28/24 11:09 Urine Nitrite (Auto) Negative 06/28/24 11:09 Urine Bilirubin (Auto) 0 mg/dL 06/28/24 11:09 Urine Urobilinogen (Auto) 0.2 mg/dL 06/28/24 11:09 Leukocyte Esterase (Auto) 15 Jc/uL 06/28/24 11:09 Assessment & Plan Assessment & Plan (1) Nocturia more than twice per night: Code(s): R35.1 - Nocturia Category: Medical (2) BPH w urinary obs/LUTS: Code(s): N40.1 - Benign prostatic hyperplasia with lower urinary tract symptoms; N13.8 - Other obstructive and reflux uropathy Category: Medical Plan We discussed the nature of the decision and reasonable options for performing a prostate intervention. Interventions include TURP, GreenLight laser enucleation of the prostate, GreenLight laser ablation of the prostate, transurethral incision of the prostate, and I-Tend prostate procedure. Options such as medical therapy were discussed. The relative uncertainties and benefits related to each alternate procedure were adequately discussed. General surgical risks including, but not limited to, pain, bleeding, infection, myocardial infarction, pulmonary embolus, deep vein thrombosis and cerebrovascular accident which may result in further hospitalization were discussed. Full disclosure of the procedure as well as all major risks, benefits and complications were discussed including but not limited to damage to the urethra or bladder neck, recurrent BPH, retrograde ejaculation, bladder infection, urge, de rajesh frequency, incomplete emptying, dysuria, remote chance of erectile dysfunction, epididymitis, and meatal stenosis. The success rate of the procedure was discussed. Success of the procedure in the short-term does not necessarily guarantee that long-term success will be maintained. Suitable follow up will need to be maintained. The patient showed understanding of discussion. An opportunity was provided for questions to be answered and wishes to proceed with the following procedure. - Greenlight laser Orders: Orders AMB Urinalysis Automated 06/28/24 Z13.9 - Encounter for screening, unspecified Medications: New sildenafil administer 60 minutes before intended activity 100 mg PO ONCE PRN 30 tabs 0RF sexual activity 30 days N52.9 - Male erectile dysfunction, unspecified Patient Instructions: Imaging studies, laboratory and physical exam results were discussed and reviewed in detail. No major barriers to patient understanding were identified. An opportunity to ask questions regarding the treatment plan was provided. All questions were answered. The patient expressed understanding and agreement with the above treatment plan. The patient is aware they should contact our office by phone for worsening of their current condition or the appearance of new urologic symptoms. Compliance is encouraged with any medications and followup testing that is ordered. It is a privilege to participate in the urologic care of your patient. If you have any questions or concerns regarding treatment for the above conditions, or other urologic issues, please do not hesitate to contact me. The office telephone contact is [phone]. This note is constructed using voice recognition software. While every effort has been made to ensure accuracy book cleaner errors may have been included. Yours sincerely, Dr Don Del Rio MD, [facility] - Urology Providers of Expert, Compassionate Care for the Genitourinary System Coding Level of Care Code Est Pt Level 4 (76741) Diagnoses Nocturia more than twice per night R35.1 BPH w urinary obs/LUTS N40.1; N13.8
== END 2024-06-28 12:01 | disposition home or self-care (01) ==
PROVIDERS: PCP Internal Medicine; Visit Provider Urology
DX: N40.1 Benign prostatic hyperplasia with lower urinary tract symptoms (principal); R35.1 Nocturia; N13.8 Other obstructive and reflux uropathy
CPT/HCPCS: 99214

== ENCOUNTER → 2024-06-28 10:42 | Outpatient (BNVA) | payer OTHER, SELFPAY | PROVIDERS: PCP Internal Medicine; Visit Provider Urology | DX: R97.20 Elevated prostate specific antigen [PSA] (principal); N40.1 Benign prostatic hyperplasia with lower urinary tract symptoms; N13.8 Other obstructive and reflux uropathy; R35.1 Nocturia; N52.9 Male erectile dysfunction, unspecified; Z79.899 Other long term (current) drug therapy | CPT/HCPCS: 81003; 99212 ==

== ENCOUNTER 2024-07-26 11:42 | Outpatient (AMB) | payer OTHER, SELFPAY ==
[2024-07-26 12:37] VITALS: BP 98/60; PULSE 67; BMI 28.5
--- NOTE | 2024-07-26 12:37 | MHC.OFFVIS ---
Vital Signs 07/26/24 12:37 Height 5 ft 11 in Weight 204 lb 9.423 oz BMI 28.5 BP 98/60 Blood Pressure Location Lt brachial Position Sitting Pulse 67 Intake Visit Reasons: Preop Prostatectomy Kosher Sealer Required: No Accompanied by: Self / Same As Patient Allergies No Known Allergies [No Known Allergies*] Allergy (Verified 06/28/24 11:08) Medication List - Last Reconciled 07/26/24 by Devin Sousa MD amlodipine 5 mg PO QAM aspirin 81 mg PO BEDTIME atorvastatin 80 mg PO BEDTIME doxycycline hyclate 100 mg PO BID 30 days finasteride 5 mg PO DAILY 90 days insulin glargine (Lantus Solostar U-100 Insulin) 42 units subcut BEDTIME lidocaine 5% 1 patch topical DAILY PRN lisinopril 40 mg PO DAILY metformin 1,000 mg BID metoprolol succinate ER 50 mg PO QPM omega-3 acid ethyl esters 0 caps PO omega-3 fatty acids-fish oil 340-1,000 mg (Fish Oil) 1 cap PO TID omeprazole 20 mg DAILY sildenafil 100 mg PO ONCE PRN 30 days tadalafil 5 mg PO DAILY 90 days terazosin 5 mg PO BEDTIME 90 days ticagrelor 90 mg PO BID HPI Comments Details: Cruz returns for follow-up regarding coronary disease. He has multiple cardiovascular risk factors including type 2 diabetes, hypertension, smoking. In 2020, he was admitted with NSTEMI. He underwent cardiac catheterization and stenting of the LAD. In 2022, underwent repeat catheterization but no new interventions. He states he is still intermittently getting a burning sensation left chest and some burning discomfort in the left upper arm. This happened sometimes with activity but not every time. He needs to go for prostate surgery soon. [facility] Medical History Epidermal cyst Abscess of hand, right Cellulitis Dog bite of extremity Acute coronary syndrome NSTEMI (non-ST elevated myocardial infarction) Smoking Essential hypertension Type 2 diabetes mellitus with unspecified complications Atherosclerotic cardiovascular disease HTN (hypertension) Diabetes Surgical History S/P cardiac cath History of cardiac cath (~03/2019) Family History Father No problems noted. Mother Leukemia HTN (hypertension) Social History Household Members: None Housing: Apartment Do you presently have visiting nurse or other home services: No Alcohol intake: current Alcohol intake frequency: holidays/special occasions only Comment: refuses bed alarm Patient Tobacco Use Status: Current everyday Tobacco user Cigarette Packs Per Day: 0.25 Cigarettes Per Day: 5 Second Hand Smoke Exposure: No Substance Use Type: Marijuana Advance Directives Date on File: 02/04/21 service: No Current occupational status: unemployed Review of Systems Const Denies chills, Denies daytime sleepiness, Denies fatigue, Denies fever(s), Denies poor appetite, Denies snoring, Denies stops breathing during sleep, Denies weakness, Denies weight gain and Denies weight loss Eyes Denies loss of vision ENT Denies dizziness and Denies hearing loss Card Denies chest pain, Reports chest pain with activity, Denies irregular heart rhythm, Denies claudication, Denies leg edema, Denies lightheadedness, Denies palpitations, Reports dyspnea on exertion and Denies orthopnea Resp Denies cough, Denies excessive phlegm production, Reports dyspnea on exertion, Denies snoring and Denies wheezing GI Denies abdominal pain, Denies hematochezia, Denies change in bowel habits, Denies nausea and Denies vomiting Denies dysuria and Denies urinary frequency Musc Denies arthralgias, Denies muscle weakness, Denies numbness and Denies other Skin/Breast Denies nail changes and Denies rash Neuro Denies Abnormal speech present, Denies dizziness, Denies loss of vision, Denies memory loss, Denies numbness and Denies weakness Psych Denies depression and Denies memory loss Endo Denies fatigue and Denies palpitations Armando/Lymph Denies easy bruising Aller/Immun Denies wheezing Physical Exam Vital Signs: Last Vital Signs Pulse 67 07/26/24 12:37 BP 98/60 07/26/24 12:37 BMI result Body Mass Index 28.5 Const General: comfortable and no acute distress Orientation/consciousness: patient oriented x3 HEENT Other: Unremarkable Head: Yes normal to inspection Neck Neck: Yes normal visual inspection Chest Chest palpation & inspection: normal inspection of the chest Resp Auscultation: clear to auscultation bilaterally Cardio Palpation: normal PMI Heart sounds: S1 normal heart sound present, S2 normal heart sound present, no gallops, no murmurs and no rubs GI Palpation (GI): Soft to palpation Back/Spine/Pelvis Other: unremarkable Skin General skin exam: no rashes or lesions noted Neuro General: patient oriented x3 Speech: No Abnormal speech present Extrem General: Yes normal to inspection Psych Mental Status: mental status grossly normal Office Procedures EKG Details: EKG with underlying sinus rhythm at 60/Min; left ventricular hypertrophy with some QRS widening; nonspecific ST-T changes; [place]. [id number], Complete Assessment & Plan Assessment & Plan (1) Atherosclerotic cardiovascular disease: Code(s): I25.10 - Atherosclerotic heart disease of [place] coronary artery without angina pectoris Category: Medical Plan: Cardiac catheterization reviewed from 2022-ostial diagonal 70% stenosis supplying a moderate-sized territory. Patent stent in mid LAD with minimal instent restenosis. Otherwise, mild disease in circumflex and RCA. Prior to that, he underwent exercise stress testing where he was complaining of again 7/10 chest burning with inferior/V6 ST depression. Perfusion imaging had reported LAD territory ischemia then. Due to recurring symptoms of chest burning/left arm burning as well as do the fact he has a prostate surgery coming up, we will repeat his diagnostic catheterization. Discussed with Dr. Del Rio and . He has listed on both aspirin and Brilinta but patient does not know what he is taking. Will need to call his pharmacy. Continue statins. (2) Preoperative cardiovascular examination: Code(s): Z01.810 - Encounter for preprocedural cardiovascular examination Category: Medical Plan: Await cardiac catheterization as above. Orders: Orders Complete Blood Count no Diff Today I25.10 - Atherosclerotic heart disease of [place] coronary artery without angina pectoris Cardiac Cath LT w PCI Today I25.10 - Atherosclerotic heart disease of [place] coronary artery without angina pectoris Basic Metabolic Panel Today I25.10 - Atherosclerotic heart disease of [place] coronary artery without angina pectoris Prothrombin Time INR Today I25.10 - Atherosclerotic heart disease of [place] coronary artery without angina pectoris Coding Level of Care Code Est Pt Level 4 (17125) Diagnoses Atherosclerotic cardiovascular disease I25.10 Preoperative cardiovascular examination Z01.810 CPT Codes EKG - CPT: 15607-[id number], Complete ([id number])
== END 2024-07-26 13:39 | disposition home or self-care (01) ==
PROVIDERS: PCP Internal Medicine; Visit Provider Internal Medicine
DX: I25.10 Atherosclerotic heart disease of native coronary artery without angina pectoris (principal); Z01.810 Encounter for preprocedural cardiovascular examination
CPT/HCPCS: 93010; 99214

== ENCOUNTER 2024-07-26 11:42 | Outpatient (REF) | payer OTHER, SELFPAY ==
[2024-07-26 15:11] LABS: Hemoglobin 10.6 g/dl (14.0-18.0); Mean Corpuscular HGB Conc 31.2 g/dl (31.0-36.0); Mean Corpuscular Volume 77.1 fL (80.0-98.0); Mean Platelet Volume 9.1 fL (9.4-12.4); Platelet Count 412 X10*3/uL (160-400); Red Blood Count 4.41 X10*6/uL (4.60-5.80); Red Cell Distribution Width 17.3 % (11.0-16.0); White Blood Count 7.6 X10*3/uL (4.8-10.8)
[2024-07-26 15:30] LABS: INTERNATIONAL NORM RATIO 0.9 (0.9-1.1)
[2024-07-26 15:43] LABS: Anion Gap 8 (12-20); Blood Urea Nitrogen 13 mg/dL (9-16); Calcium 9.8 mg/dL (8.4-10.2); Carbon Dioxide 30 mmol/L (22-29); Chloride 108 mmol/L (96-108); Estimated Glomerular Filt Rate > 60; Glucose Random 80 mg/dL (60-115); Potassium 4.3 mmol/L (3.3-5.1); Sodium 142 mmol/L (135-145)
== END 2024-07-26 11:43 | disposition home or self-care (01) ==
LOC: HO.LAB 11:42
PROVIDERS: PCP Internal Medicine; Visit Provider Internal Medicine
DX: Z01.810 Encounter for preprocedural cardiovascular examination (principal); I10 Essential (primary) hypertension; I25.2 Old myocardial infarction; I25.10 Atherosclerotic heart disease of native coronary artery without angina pectoris; E11.9 Type 2 diabetes mellitus without complications; F17.210 Nicotine dependence, cigarettes, uncomplicated
CPT/HCPCS: 36415; 80048; 85027; 85610; 93005; 99212

== ENCOUNTER → 2024-07-28 23:59 | Outpatient (BNV) | payer OTHER, SELFPAY | PROVIDERS: PCP Internal Medicine; Visit Provider Internal Medicine Cardiovascular Disease | DX: I20.89 Other forms of angina pectoris (principal); R07.9 Chest pain, unspecified | CPT/HCPCS: 93458; 99152 ==

== ENCOUNTER 2024-08-10 15:32 | Outpatient (REF) | payer OTHER, SELFPAY ==
[2024-08-10 16:21] LABS: MANUAL DIFF FLAG NO
[2024-08-10 16:24] LABS: Basophils Absolute Auto 0.1 X10*3/uL (0.0-0.2); Basophils Percent Auto 0.7 % (0-2); Eosinophils Absolute Auto 0.3 X10*3/uL (0.0-0.4); Eosinophils Percent Auto 4.8 % (0-4); Hematocrit 32.8 % (42.0-52.0); Hemoglobin 10.1 g/dl (14.0-18.0); Imm Gran Abs Auto 0.02 X10*3/uL (0.00-0.03); Imm Gran Pct Auto 0.3 % (0.0-0.4); Lymphocytes Absolute Auto 2.1 X10*3/uL (1.2-4.9); Lymphocytes Percent Auto 29.9 % (20-40); Mean Corpuscular HGB Conc 30.8 g/dl (31.0-36.0); Mean Corpuscular Hemoglobin 23.8 pg (27.0-33.0); Mean Corpuscular Volume 77.4 fL (80.0-98.0); Mean Platelet Volume 9.1 fL (9.4-12.4); Monocytes Absolute Auto 0.5 X10*3/uL (0.1-1.2); Monocytes Percent Auto 7.5 % (2-11); Neutrophils Percent Auto 56.8 % (45-73); Platelet Count 383 X10*3/uL (160-400); Red Blood Count 4.24 X10*6/uL (4.60-5.80); Red Cell Distribution Width 17.5 % (11.0-16.0)
[2024-08-10 17:00] LABS: Iron 29 mcg/dL (45-160); Percent Iron Saturation 10 % (15-50); Total Iron Binding Capacity 297 mcg/dL (228-428); Unsaturated Iron Binding 268 ug/dL
[2024-08-10 17:17] LABS: Ferritin 12 ng/mL (20-250)
[2024-08-10 17:26] LABS: Folate 11.2 ng/mL (> or = 4.0); Vitamin B12 337 pg/mL (200-900)
[2024-08-11 12:08] LABS: Prot Elec - Albumin 3.8 g/dL (3.8-4.8); Prot Elec - Alpha1 0.3 g/dL (0.2-0.3); Prot Elec - Alpha2 0.7 g/dL (0.5-0.9); Prot Elec - Beta 1 0.5 g/dL (0.4-0.6); Prot Elec - Beta 2 0.5 g/dL (0.2-0.5); Prot Elec - Gamma 1.2 g/dL (0.8-1.7)
[2024-08-14 17:54] LABS: Testosterone, Total 654 ng/dL (250-1100)
== END 2024-08-10 15:33 | disposition home or self-care (01) ==
LOC: HO.HHCL 15:32
PROVIDERS: Referring Provider Urology; Visit Provider Internal Medicine
DX: D50.9 Iron deficiency anemia, unspecified (principal); R68.82 Decreased libido; C61 Malignant neoplasm of prostate
CPT/HCPCS: 36415; 82607; 82728; 82746; 83540; 84165; 84403; 85025

== ENCOUNTER 2024-08-21 14:43 | Outpatient (AMB) | payer OTHER, SELFPAY ==
[2024-08-21 14:43] VITALS: PULSE 98; O2SAT 99; BMI 28.6
--- NOTE | 2024-08-21 14:43 | A.OFFVIS_ITS ---
Vital Signs 08/21/24 14:43 Height 5 ft 11 in Weight 205 lb BMI 28.6 Pulse 98 Pulse Source Pulse Oximeter Pulse Oximetry (%) 99 Oxygen Delivery Method Room Air Intake Visit Reasons: follow up carbuncle in neck Allergies No Known Allergies [No Known Allergies*] Allergy (Verified 08/21/24 14:44) HPI HPI follow up carbuncle in neck: Details: He still has cluster of carbuncles that drain in neck. He did not get Clindamycin cream for some reason. [facility] Medical History Epidermal cyst Abscess of hand, right Cellulitis Dog bite of extremity Acute coronary syndrome NSTEMI (non-ST elevated myocardial infarction) Smoking Essential hypertension Type 2 diabetes mellitus with unspecified complications Atherosclerotic cardiovascular disease HTN (hypertension) Diabetes Surgical History S/P cardiac cath History of cardiac cath (~03/2019) Family History Father No problems noted. Mother Leukemia HTN (hypertension) Social History Household Members: None Housing: Apartment Do you presently have visiting nurse or other home services: No Alcohol intake: current Alcohol intake frequency: holidays/special occasions only Comment: refuses bed alarm Patient Tobacco Use Status: Current everyday Tobacco user Cigarette Packs Per Day: 0.25 Cigarettes Per Day: 5 Second Hand Smoke Exposure: No Substance Use Type: Marijuana Advance Directives Date on File: 02/04/21 service: No Current occupational status: unemployed Review of Systems Const All systems reviewed & are unremarkable except as noted in HPI and below Physical Exam Vital Signs: Last Vital Signs Pulse 98 08/21/24 14:43 Pulse Ox 99 08/21/24 14:43 Oxygen Delivery Method Room Air 08/21/24 14:43 BMI result Body Mass Index 28.6 HEENT Other: neck cluster of main carbuncle and some daughter carbuncles Assessment & Plan Assessment & Plan (1) Hidradenitis suppurativa: Comment: Likely carbuncle area Code(s): L73.2 - Hidradenitis suppurativa Category: Surgical Plan Continue Doxycycline. Continue Clindamycin creanm. Harjinder probably wouldnt work since more mechanical ,less local inflammation or r edness. See Dr Fleming see if he can drain or debride affected areas. Medications: New clindamycin phosphate 1% 1 appl topical DAILY 30 days 75 mL 0RF Refilled doxycycline hyclate 100 mg PO BID 30 days 60 caps 0RF Coding Level of Care Code Est Pt Level 3 (48536) Diagnoses Hidradenitis suppurativa L73.2
== END 2024-08-21 15:33 | disposition home or self-care (01) ==
LOC: HO.HID 14:43
PROVIDERS: PCP Internal Medicine; Visit Provider Internal Medicine
DX: L73.2 Hidradenitis suppurativa (principal)
CPT/HCPCS: 99213

== ENCOUNTER → 2024-08-21 14:43 | Outpatient (BNVA) | payer OTHER, SELFPAY | PROVIDERS: PCP Internal Medicine; Visit Provider Internal Medicine | DX: L73.2 Hidradenitis suppurativa (principal) | CPT/HCPCS: 99212 ==

== ENCOUNTER 2024-08-28 09:15 | Emergency (ER) | payer OTHER, SELFPAY ==
[2024-08-28 09:26] VITALS: BP 153/79; PULSE 79; RESP 16; TEMP 36.1; O2SAT 100; BMI 25.8
--- NOTE | 2024-08-28 09:56 | ED_ITS ---
HPI - Wound/Laceration General Chief Complaint: Wound/Laceration Stated Complaint: Cyst Time Seen by Provider: 08/28/24 09:55 Source: patient, RN notes reviewed and old records reviewed Mode of arrival: ambulatory Limitations: no limitations History of Present Illness ED Provider: Ron Maradiaga PA-C HPI narrative: 64 y/o male presents to the ER for evaluation of a worsening abscess to the back of his neck/head. He states he has had it for 1 year. He recently saw Dr. estrella in the office who started him on antibiotics. She referred him to general surgery who he has not made an appointment with yet. He states he got his hair cut last week and it made the abscess worse. It is painful and he can't sleep at night. There has been intermittent drainage. No fevers. No new creams, lotions or soaps. No pain relief from his chronically prescribed opiates. Onset (ago): day(s) Location: scalp Patient tetanus UTD: Yes Associated symptoms: pain Treatments prior to arrival: other (abx) Related Data Home Medications ?Medication ?Instructions ?Recorded ?Confirmed insulin glargine 100 unit/mL (3 42 unit subcut BEDTIME 10/03/20 07/26/24 mL) subcutaneous pen (Lantus Solostar U-100 Insulin) metformin 1,000 mg tablet 1,000 mg BID 10/03/20 07/26/24 omeprazole 20 mg capsule,delayed 20 mg DAILY 10/03/20 07/26/24 release lisinopril 40 mg tablet 40 mg PO DAILY 02/01/21 07/26/24 atorvastatin 80 mg tablet 80 mg PO BEDTIME 02/18/21 07/26/24 ticagrelor 90 mg tablet 90 mg PO BID 02/18/21 07/26/24 omega-3 fatty acids-fish oil 340 1 cap PO TID 03/28/21 07/26/24 mg-1,000 mg capsule (Fish Oil) amlodipine 5 mg tablet 5 mg PO QAM 05/28/21 07/26/24 omega-3 acid ethyl esters 1 gram 0 cap PO 03/19/23 07/26/24 capsule Previous Rx's ?Medication ?Instructions ?Recorded aspirin 81 mg tablet,delayed 81 mg PO BEDTIME #30 ea 07/27/22 release metoprolol succinate 50 mg 50 mg PO QPM #90 tabs 09/17/23 tablet,extended release 24 hr lidocaine 5 % topical patch 1 patch topical DAILY PRN pain #15 11/17/23 ea tadalafil 5 mg tablet 5 mg PO DAILY sexual activity 90 04/20/24 days #90 tabs terazosin 5 mg capsule 5 mg PO BEDTIME 90 days #90 caps 04/20/24 finasteride 5 mg tablet 5 mg PO DAILY 90 days #90 tabs 06/28/24 sildenafil 100 mg tablet 100 mg PO ONCE PRN sexual activity 06/28/24 30 days #30 tabs clindamycin phosphate 1 % topical 1 appl topical DAILY 30 days #75 mL 08/22/24 gel, once daily doxycycline hyclate 100 mg capsule 100 mg PO BID 30 days #60 caps 08/22/24 Allergies Allergy/AdvReac Type Severity Reaction Status Date / Time No Known Allergies Allergy Verified 08/28/24 09:28 [No Known Allergies*] Review of Systems Review of Systems: Yes all other systems are reviewed and are negative PMFSH Past Medical History Medical History Epidermal cyst Abscess of hand, right Cellulitis Dog bite of extremity Acute coronary syndrome NSTEMI (non-ST elevated myocardial infarction) Smoking Essential hypertension Type 2 diabetes mellitus with unspecified complications Atherosclerotic cardiovascular disease HTN (hypertension) Diabetes Surgical History S/P cardiac cath History of cardiac cath (~03/2019) Family History Family History Father No problems noted. Mother Leukemia HTN (hypertension) Social History Social History Household Members: None Housing: Apartment Do you presently have visiting nurse or other home services: No Alcohol intake: current Alcohol intake frequency: holidays/special occasions only Comment: refuses bed alarm Patient Tobacco Use Status: Current everyday Tobacco user Cigarette Packs Per Day: 0.25 Cigarettes Per Day: 5 Second Hand Smoke Exposure: No Substance Use Type: Marijuana Advance Directives: Yes Advance Directives on File: Yes Advance Directives Date on File: 02/04/21 Do you have a plan to hurt others: No Plan service: No Current occupational status: unemployed Physical Exam Vital Signs: Vital Signs: Last Vital Signs Temp 96.9 F 08/28/24 09:26 Pulse 79 08/28/24 09:26 Resp 16 08/28/24 09:26 BP 153/79 H 08/28/24 09:26 Pulse Ox 100 08/28/24 09:26 O2 Del Method Room Air 08/28/24 09:26 BMI result Body Mass Index 25.8 Appearance: Alert. Oriented X3. No acute distress. HEENT: posterior scalp with a large approx 8 cm x 3cm raised, tender, fluctuant mass with multiple scabs and areas of opening. CVS: Normal heart rate and rhythm. Pulses normal. Respiratory: No respiratory distress. Skin: Skin warm and dry. Normal skin color. Normal skin turgor. No rashes. Extremities: normal inspection Neuro: Oriented X 3. grossly normal, nonfocal Medications Administered Discontinued Medications Generic Name Dose Route Start Last Admin Trade Name Freq PRN Reason Stop Dose Admin Lidocaine HCl 2 ml 08/28/24 10:14 08/28/24 10:23 Lidocaine Hcl 1 % Mpf 2 Ml Vial INFILTRATI 08/28/24 10:15 2 ml ONCE ONE Administration Medical Decision Making Medical Decision Making MDM Narrative: 64 yo male presents to the ER for evaluation of acute on chronic posterior scalp/neck pain. recently diagnosed with a carbiunle and on PO doxy and topical clinda. area is inflamed and tender w/ fluctuance. I&D performed and culture sent. prior culture was staph lugdunensis done 1 year ago copious amounts of yellow purulent material drained and patient felt much better encouraged f/u with ID, Surgery and wound clinic. stable for d/c home. Differential Diagnosis Differential Diagnoses: The differential diagnosis associated with the presentation includes abscess, carbuncle, furuncle, MRSA infection External Record Review External record reviewed: Outpatient record, Prior outpatient labs and Prior outpatient radiology Prescription Management I considered prescription management with: Pain Medication and Antibiotic Chronic Conditions Patient?s care impacted by: Other (chronic pain on chronic opiates) Procedures Abscess I/D Site: scalp Local Anesthetic: lidocaine 1% Amount of anesthesia used (mL): 0.5 Technique: incised with blade Sent for culture/gram staining?: Yes Irrigation: Yes Packing used?: none Complications: pain Critical Care Time Critical Care Time Critical Care Time: No Discharge Plan Discharge Clinical Impression: Carbuncle Patient Disposition: Home, Self-Care Instructions: Furunculosis and Carbunculosis (ED) Additional Instructions: Follow up with Dr. Estrella and Dr. Fleming - office numbers below, call for an appointment. Also recommend following up with the Wound Clinic - call for an appointment Use warm compresses on the back of neck several times per day. Continue the previously prescribed antibiotics as well as the antibiotic gel that the infectious disease doctor prescribed. If you develop new or worsening symptoms call 911 or come back to the ER for further evaluation. Prescriptions: No Action aspirin 81 mg tablet,delayed release (DR/EC) 81 mg PO BEDTIME Qty: 30 3RF Rx Instructions: Please call to schedule a follow up with Dr. Sousa for next year. metoprolol succinate 50 mg tablet extended release 24 hr 50 mg PO QPM Qty: 90 3RF terazosin 5 mg capsule 5 mg PO BEDTIME 90 Days Qty: 90 1RF finasteride 5 mg tablet 5 mg PO DAILY 90 Days Qty: 90 1RF omeprazole 20 mg Capsule,Delayed Release(Dr/Ec) 20 mg DAILY metformin 1,000 mg Tablet 1,000 mg BID Lantus Solostar U-100 Insulin 100 unit/mL (3 mL) Insulin Pen 42 unit SUBCUT BEDTIME lisinopril 40 mg tablet 40 mg PO DAILY amlodipine 5 mg tablet 5 mg PO QAM Fish Oil 340-1,000 mg capsule 1 cap PO TID lidocaine 5 % adhesive patch,medicated 1 patch topical DAILY PRN (Reason: pain) Qty: 15 0RF Rx Instructions: leave on most painful area for up to 12 hrs ticagrelor 90 mg tablet 90 mg PO BID atorvastatin 80 mg tablet 80 mg PO BEDTIME tadalafil 5 mg tablet 5 mg PO DAILY 90 Days Qty: 90 1RF omega-3 acid ethyl esters 1 gram capsule 0 cap PO doxycycline hyclate 100 mg capsule 100 mg PO BID 30 Days Qty: 60 0RF clindamycin phosphate 1 % gel, once daily 1 appl topical DAILY 30 Days Qty: 75 0RF sildenafil 100 mg tablet 100 mg PO ONCE PRN (Reason: sexual activity) 30 Days Qty: 30 0RF Rx Instructions: administer 60 minutes before intended activity Referrals: [facility] General Surgeons [Provider Group] [facility] Infectious Disease Center [Provider Group] [facility] Wound Care Management [Provider Group] Aj Alonso MD [Primary Care Provider] - Print Language: Liberian
[2024-08-28] MEDS: Lidocaine HCl 1 % MPF 2 ML VIAL INFILTRATI (10:23)
--- NOTE | 2024-08-28 10:23 | PC.NURSE ---
provider to administer lido to site
--- NOTE | 2024-08-28 10:40 | PC.NURSE ---
wound culture swab obtained
[2024-08-28 10:48] VITALS: BP 148/72; PULSE 72; RESP 16; TEMP 36.1; O2SAT 100
== END 2024-08-28 10:49 | disposition home or self-care (01) ==
PROVIDERS: Emergency Provider Emergency Medicine; PCP Internal Medicine
DX: L02.831 Carbuncle of head [any part, except face] (principal); Z79.899 Other long term (current) drug therapy
CPT/HCPCS: 10060; 87070; 87077; 87186; 87205; 99283; 99284; J2003

== ENCOUNTER 2024-09-04 08:29 | Day surgery (SDC) | payer OTHER, SELFPAY ==
[2024-08-03 10:43] VITALS: BMI 28.4
--- NOTE | 2024-08-03 13:58 | P.CONAN_ITS ---
Documented by User: Katelyn Eaton NP 08/10/24 14:05 HPI - Anesthesia Eval Consult details Narrative: 64yo M for Laser Ablation Prostate w/Green Light, 09/04/24 Cardiac optimized. Follows [facility] [place] cardiology: Preliminary cardiac catheterization report by Dr. Dow- no significant fi ndings. Full report is pending. May proceed with planned urologic surgery. Intermediate cardiac risk. May stop Brilinta. If able, continue aspirin without interruption. If high bleeding risk from georgina philomean, then hold x 5-7 days prior. PMF Active Problems Active Problems: All Active Problems Preoperative cardiovascular examination (Acute) Low libido (Acute) Hidradenitis suppurativa (Acute) COVID-19 (Acute) Erectile dysfunction (Acute) COVID-19 virus infection (Acute) Elevated PSA (Acute) Nocturia more than twice per night (Acute) BPH w urinary obs/LUTS (Acute) Essential hypertension (Acute) Type 2 diabetes mellitus with unspecified complications (Acute) Stiffness of right wrist joint (Acute) Stiffness of right hand joint (Acute) Dog bite (Acute) Abscess of right hand (Acute) Postoperative hematoma (Acute) Postoperative seroma (Acute) Smoking (Acute) Atherosclerotic cardiovascular disease (Acute) HTN (hypertension) (Acute) Diabetes (Acute) Past Medical History Medical History Epidermal cyst Abscess of hand, right Cellulitis Dog bite of extremity Acute coronary syndrome NSTEMI (non-ST elevated myocardial infarction) Smoking Essential hypertension Type 2 diabetes mellitus with unspecified complications Atherosclerotic cardiovascular disease HTN (hypertension) Diabetes Family History Family History Father No problems noted. Mother Leukemia HTN (hypertension) Surgical History Surgical History History of coronary artery stent placement S/P cardiac cath History of cardiac cath (~03/2019) Social History Social History Household Members: None Housing: Apartment Are you a primary child care to a significant other at home: No Do you presently have visiting nurse or other home services: No Alcohol intake: current Alcohol intake frequency: holidays/special occasions only Comment: refuses bed alarm Patient Tobacco Use Status: Current everyday Tobacco user Tobacco use type: Cigarette Cigarette Packs Per Day: 0.25 Cigarettes Per Day: 5 Second Hand Smoke Exposure: No Use of substances other than those prescribed or required for medical reasons: No Substance Use Type: Marijuana Substance Use Frequency: Daily Have you been hit, kicked, punched, or otherwise hurt by someone within the past year? If so, by whom?: No Advance Directives: No Advance Directives Information Provided: Yes Advance Directives Date on File: 02/04/21 Recently lost weight without trying: No Nutrition Risks: No Nutritional Risk Poor oral hygiene: No service: No Current occupational status: unemployed Meds Allergies Allergy/AdvReac Type Severity Reaction Status Date / Time No Known Allergies Allergy Verified 09/04/24 10:11 [No Known Allergies*] Home Medications ?Medication ?Instructions ?Recorded ?Confirmed ?Last Taken ?Type insulin glargine 100 unit/mL (3 42 unit subcut BEDTIME 10/03/20 07/26/24 10/02/20 History mL) subcutaneous pen (Lantus Solostar U-100 Insulin) metformin 1,000 mg tablet 1,000 mg BID 10/03/20 07/26/24 10/02/20 History omeprazole 20 mg capsule,delayed 20 mg DAILY 10/03/20 07/26/24 10/02/20 History release lisinopril 40 mg tablet 40 mg PO DAILY 02/01/21 07/26/24 Unknown History atorvastatin 80 mg tablet 80 mg PO BEDTIME 02/18/21 07/26/24 09/03/24 History ticagrelor 90 mg tablet 90 mg PO BID 02/18/21 07/26/24 08/27/24 History omega-3 fatty acids-fish oil 340 1 cap PO TID 03/28/21 07/26/24 09/03/24 History mg-1,000 mg capsule (Fish Oil) amlodipine 5 mg tablet 5 mg PO QAM 05/28/21 07/26/24 Unknown History omega-3 acid ethyl esters 1 gram 0 cap PO 03/19/23 07/26/24 Unknown History capsule Exam Height,Weight and Vital Signs: Height 5 ft 11 in Weight 92.533 kg Pertinent Lab Results Pertinent Lab Results: Laboratory Tests 07/26/24 14:10 WBC 7.6 Hgb 10.6 L Hct 34.0 L Plt Count 412 H Sodium 142 Potassium 4.3 Chloride 108 Carbon Dioxide 30 H BUN 13 Creatinine 0.88 Narrative Narrative: EKG 07/2024 sinus rhythm at 60/Min; left ventricular hypertrophy with some QRS widening; nonspecific ST-T changes; normal MI and corrected QT. ECHO 2022 Conclusions: - The left ventricular systolic function is mildly decreased. The calculated ejection fraction is 52% by biplane method. - There is evidence of regional wall motion abnormalities. - No obvious valvular pathology seen on this study. - There is mild dilatation of the ascending aorta measuring 4.20 cm. NM cardiolite stress test 2022 Impression: 1. LAD territory ischemia of mild to moderate intensity, moderate size defect 2. Gated LVEF is 49% with stress and 57% with rest 3. Transient ischemic dilatation not present Stress EKG is positive for ischemia ... Cardiac cath 2022 ostial diagonal 70% stenosis supplying a moderate-sized territory. Patent stent in mid LAD with minimal instent restenosis. Otherwise, mild disease in circumflex and RCA. Repeat cath 2023 without significant findings Assessment and Plan Assessment Anesthesia Assessment: Chart Reviewed Documented by User: Precious Garner MD 09/04/24 13:44 HPI - Anesthesia Eval Consult details Narrative: 64yo M for Laser Ablation Prostate w/Green Light, 09/04/24 Cardiac optimized. Follows [facility] [place] cardiology: Preliminary cardiac catheterization report by Dr. Dow- no significant findings. Full report is pending. May proceed with planned urologic surgery. Intermediate cardiac risk. May stop Brilinta. If able, continue aspirin without interruption. If high bleeding risk from surgery, then hold x 5-7 days prior. 09/04/24: Coffee with cream at 7:30 am. Will delay surgery for NPO 6 hours PMFSH Active Problems Active Problems: All Active Problems Preoperative cardiovascular examination (Acute) Low libido (Acute) Hidradenitis suppurativa (Acute) COVID-19 (Acute) Erectile dysfunction (Acute) COVID-19 virus infection (Acute) Elevated PSA (Acute) Nocturia more than twice per night (Acute) BPH w urinary obs/LUTS (Acute) Essential hypertension (Acute) Type 2 diabetes mellitus with unspecified complications (Acute) Stiffness of right wrist joint (Acute) Stiffness of right hand joint (Acute) Dog bite (Acute) Abscess of right hand (Acute) Postoperative hematoma (Acute) Postoperative seroma (Acute) Smoker. Last cigarette this morning Daily marijuana Atherosclerotic cardiovascular disease (Acute) HTN (hypertension) (Acute) Diabetes (Acute) Past Medical History Medical History Epidermal cyst Abscess of hand, right Cellulitis Dog bite of extremity Acute coronary syndrome NSTEMI (non-ST elevated myocardial infarction) Smoking Essential hypertension Type 2 diabetes mellitus with unspecified complications Atherosclerotic cardiovascular disease HTN (hypertension) Diabetes Family History Family History Father No problems noted. Mother Leukemia HTN (hypertension) Family history of problems with anesthesia: No Surgical History Surgical History History of coronary artery stent placement S/P cardiac cath History of cardiac cath (~03/2019) History of Problems with Anesthesia: Yes (Prolonged weakness after spinal for ?excision of hidradenitis of groin. Needed admission overnight) Social History Social History Household Members: None Housing: Apartment Are you a primary child care to a significant other at home: No Do you presently have visiting nurse or other home services: No Alcohol intake: current Alcohol intake frequency: holidays/special occasions only Comment: refuses bed alarm Patient Tobacco Use Status: Current everyday Tobacco user Tobacco use type: Cigarette Cigarette Packs Per Day: 0.25 Cigarettes Per Day: 5 Second Hand Smoke Exposure: No Use of substances other than those prescribed or required for medical reasons: No Substance Use Type: Marijuana Substance Use Frequency: Daily Have you been hit, kicked, punched, or otherwise hurt by someone within the past year? If so, by whom?: No Advance Directives: No Advance Directives Information Provided: Yes Advance Directives Date on File: 02/04/21 Recently lost weight without trying: No Nutrition Risks: No Nutritional Risk Poor oral hygiene: No service: No Current occupational status: unemployed Meds Allergies Allergy/AdvReac Type Severity Reaction Status Date / Time No Known Allergies Allergy Verified 09/04/24 10:11 [No Known Allergies*] Home Medications ?Medication ?Instructions ?Recorded ?Confirmed ?Last Taken ?Type insulin glargine 100 unit/mL (3 42 unit subcut BEDTIME 10/03/20 07/26/24 10/02/20 History mL) subcutaneous pen (Lantus Solostar U-100 Insulin) metformin 1,000 mg tablet 1,000 mg BID 10/03/20 07/26/24 10/02/20 History omeprazole 20 mg capsule,delayed 20 mg DAILY 10/03/20 07/26/24 10/02/20 History release lisinopril 40 mg tablet 40 mg PO DAILY 02/01/21 07/26/24 Unknown History atorvastatin 80 mg tablet 80 mg PO BEDTIME 02/18/21 07/26/24 09/03/24 History ticagrelor 90 mg tablet 90 mg PO BID 02/18/21 07/26/24 08/27/24 History omega-3 fatty acids-fish oil 340 1 cap PO TID 03/28/21 07/26/24 09/03/24 History mg-1,000 mg capsule (Fish Oil) amlodipine 5 mg tablet 5 mg PO QAM 05/28/21 07/26/24 Unknown History omega-3 acid ethyl esters 1 gram 0 cap PO 03/19/23 07/26/24 Unknown History capsule Exam Height,Weight and Vital Signs: Height 5 ft 11 in Weight 92.533 kg Vital Signs Temp Pulse Resp BP Pulse Ox O2 Del Method 09/04/24 10:57 97.1 F 71 14 163/85 H 100 Room Air Pertinent Lab Results Pertinent Lab Results: Laboratory Tests 07/26/24 14:10 WBC 7.6 Hgb 10.6 L Hct 34.0 L Plt Count 412 H Sodium 142 Potassium 4.3 Chloride 108 Carbon Dioxide 30 H BUN 13 Creatinine 0.88 Lab Results 09/04/24 Range/Units 11:03 POC Glucose 142 H (60-115) mg/dL Airway Mallampati Class: II TM Dist: >3cm Neck ROM: Full Loose/Missing/Broken Teeth: No Heart: RRR Lungs: CTAB Assessment and Plan Assessment Anesthesia Assessment: Anesthesia Plan Discussed and Chart Reviewed Final Anesthetic Review Family History of Problems with Anesthesia: No History of Problems with Anesthesia: Yes (Prolonged weakness after spinal for ?excision of hidradenitis of groin. Needed admission overnight) NPO: No (Coffee with cream at 7:30 am) ASA Class: III Final Preanesthetic Review: No Changes in Pt Med Stat, Meds/Allgs Chart Reviewed, Consent Obtained/Reviewed and Anes Risks/Benef Reviewed Patient Risk: Intermediate Procedure Risk: Low Assessment/Block/Sedation in SS: Assess/Block/Sedation-SS Anesthetic Plan Anesthetic Plan: GA and Other Disposition: Standard PACU
[2024-08-31 13:48] VITALS: BMI 28.4
[2024-09-04 10:36] VITALS: BMI 28.6
[2024-09-04 10:57] VITALS: BP 163/85; PULSE 71; RESP 14; TEMP 36.2; O2SAT 100
[2024-09-04 11:07] LABS: Glucose, Whole Blood 142 mg/dL (60-115)
--- NOTE | 2024-09-04 12:49 | MHC.SHP ---
Pre-Procedural Eval Section A - 24 Hr Update-Section A only Date of Service: 09/04/24 The patient is an INPATIENT: No Changes since office visit: No Cold of Flu in the past 2 weeks, No New Medical Problems, No Changes in Medication and No Patient answered all questions The patient has been examined within 24 hours of the surgical procedure. The History & Physical has been completed within 30 days and I have reviewed it.: Yes Section B - Complete if H&P > 30 days Chief Complaint: Bladder-neck obstruction Details of Present Illness: GreenLight laser prostate Relevant Social History: None Present Medications: see Short Stay Collaborative assessment Medical History: No relevant PMH History of Previous Operations: No relevant previous surgery Allergies: Allergies Allergy/AdvReac Type Severity Reaction Status Date / Time No Known Allergies Allergy Verified 09/04/24 10:11 [No Known Allergies*] Review of Systems Sugical H&P ROS: Negative: Constitution, Cardiovascular, Respiratory, Neurological, Psychiatric, Hem-Onc, Allergic/Immunologic, Gastrointestinal, Genitourinary, Musculoskeletal, Integumentary, Endocrine and Eyes/Ears/Nose/Throat Exam Surgical H&P Exam: Normal: HEENT, Normal: Heart, Normal: Lungs, Normal: Extremities, Normal: Abdomen, Normal: Skin and Normal: Neurological Plan Diagnosis/Plan: Unchanged (GreenLight laser prostate) I have reviewed the history and physical and performed a pertinent physical examination on my patient. No changes have occurred unless specified. Time Spent With Patient Time: Total time managing care of this patient today ____ minutes.
[2024-09-04 15:12] VITALS: BP 155/90; PULSE 96; RESP 12; TEMP 36.1; O2SAT 97
[2024-09-04 15:15] VITALS: BP 134/68; PULSE 89; RESP 14; O2SAT 97
--- NOTE | 2024-09-04 15:17 | W.PM.OPN ---
Operative Note Operative Note Date of Service: 09/04/24 Narrative: PreOperative Diagnosis: Bladder outlet obstruction Post Operative Diagnosis: Bladder outlet obstruction Procedure: GreenLight Laser Enucleation of the prostate CPT 88715 Surgeon: Dr Don Del Rio Anesthesia: General History of bladder outlet obstruction. Treated with alpha-fuentes and other medications. Still with symptoms. On cystoscopy in office has trilobar prostate. Recommendation for prostate procedure with laser enucleation of prostate. Risks and benefits have been discussed. Focus was placed on development of retrograde ejaculation which is a normal part of this procedure. Procedure: After informed consent was verified the patient was brought to the operating room and placed in a supine position. Anesthesia was administered per protocol. Patient was placed in modified dorsal lithotomy position and prepped and draped in a sterile fashion. Safety pause time-out was confirmed. Antibiotics have been given. A Twenty-four Chinese laser cystoscope was inserted per urethra. No abnormalities were found of the anterior and bulbar urethra. The prostatic urethra shows trilobar hypertrophy The bladder was examined and both ureteric orifices were seen in their normal positions away from the area of interest. Bladder trabeculation Grade 2. Using a GreenLight laser with settings of 80 dean incisions were made at the 5 and 7 o'clock position. The incisions were taken down from the bladder neck down to the level of the veru. These were gradually deepened in order to define the lateral aspects of the median lobe area. Once clearly defined they will also extended in the lateral directions in order to create a deep groove. The median lobe was then ablated and enucleated tissue released into the bladder with the laser power increased to 120 W. Once the median lobe area had been cleared attention was directed to the lateral lobes. Starting with the patient's left lateral lobe. First the 05:00 o'clock groove was further developed. This was moved in the lateral direction to undermine the tissue on the lateral side running from the bladder neck to the prostate apex. The ureteric orifice was used to guide incisions. Focus was then placed on the laser at the 1 o'clock position to developing a secondary groove down to the level of bladder fibers. The creation of a second deep groove defined a segment of intervening tissue similar to a slice of orange. At the apex of the prostate the 2 grooves were linked the us releasing the intervening tissue. This tissue was then removed with a combination of enucleation and ablation working from the apex toward the bladder neck. A similar procedure was repeated on the patient's right-hand side. The only differences being the position of the lateral groove at he 7 o'clock position and the secondary groove at the 11 o'clock position, Otherwise the procedure was developed in a mirror fashion. After the majority of tissue had been debulked remnant tissue was ablated with the side fire laser and the curve of the prostate followed up each side wall clearly defining the anterior remnant strip that remained between the 11 and 1 o'clock positions. In this case the anterior tissue protruded into the prostatic fossa and was partially ablated with the laser When this was had been completed debris and pieces of prostate were removed from the bladder with irrigation. Both ureteric orifices were reviewed again in shown to be patent in away from any areas of energy damage. The apical area was reviewed in any stray ooze was controlled. A 22 Chinese 30 cc balloon Mariscal catheter was placed over a stylet into the bladder. Clear efflux was obtained upon irrigation with a Jailene piston syringe. 50 cc was placed in the balloon and gentle traction was placed. A snap was used to hold tension on the catheter to control bleeding during patient moved and transported. A drainage bag was placed. Once transportation is complete to the PACU the snap will be removed. The patient tolerated the procedure well, he was extubated in the operating and transferred in a stable condition to the recovery area. Total Power 236 kW Lasing time 33:28 Pathology: Prostate tissue Drains: Mariscal catheter
[2024-09-04 15:20] VITALS: BP 115/65; PULSE 85; RESP 16; O2SAT 97
[2024-09-04 15:25] VITALS: BP 120/69; PULSE 81; RESP 16; O2SAT 97
[2024-09-04 15:40] VITALS: BP 122/71; PULSE 73; RESP 16; TEMP 36.1; O2SAT 98
== END 2024-09-04 16:04 | disposition home or self-care (01) ==
PROVIDERS: PCP Internal Medicine; Visit Provider Urology
PROC: (CPT 52648; principal; 2024-09-04 12:20)
DX: N32.0 Bladder-neck obstruction (principal); N40.1 Benign prostatic hyperplasia with lower urinary tract symptoms; R35.1 Nocturia; N13.8 Other obstructive and reflux uropathy; R97.20 Elevated prostate specific antigen [PSA]; N52.9 Male erectile dysfunction, unspecified; N48.1 Balanitis; I25.10 Atherosclerotic heart disease of native coronary artery without angina pectoris; Z95.5 Presence of coronary angioplasty implant and graft; I25.2 Old myocardial infarction; I10 Essential (primary) hypertension; E11.9 Type 2 diabetes mellitus without complications; Z79.4 Long term (current) use of insulin; Z79.84 Long term (current) use of oral hypoglycemic drugs; Z79.82 Long term (current) use of aspirin; Z79.899 Other long term (current) drug therapy; F17.210 Nicotine dependence, cigarettes, uncomplicated; Z56.0 Unemployment, unspecified
CPT/HCPCS: 52649; 82947; 88305; J0131; J1100; J1956; J2003; J2405; J2704; J2710; J3010

== ENCOUNTER → 2024-09-04 08:29 | Outpatient (BNV) | payer OTHER, SELFPAY | PROVIDERS: PCP Internal Medicine; Visit Provider Urology | DX: N32.0 Bladder-neck obstruction (principal) | CPT/HCPCS: 52649 ==

== ENCOUNTER → 2024-09-07 09:05 | Outpatient (BNVA) | payer OTHER, SELFPAY | PROVIDERS: PCP Internal Medicine; Visit Provider Urology | DX: N40.1 Benign prostatic hyperplasia with lower urinary tract symptoms (principal); N13.8 Other obstructive and reflux uropathy | CPT/HCPCS: 51700; 51798 ==

== ENCOUNTER 2024-09-13 09:29 | Outpatient (AMB) | payer OTHER, SELFPAY ==
--- NOTE | 2024-09-13 09:30 | A.OFFVIS_ITS ---
Intake Visit Reasons: hidradenits suppurativa neck Intake Note: Patient referred by Dr. Bi Grande for hidradenitis suppurativa on posterior neck. Patient c/o: has had lesion I&Ded 3x in the past. Talent Scout Required: No Accompanied by: self Allergies No Known Allergies [No Known Allergies*] Allergy (Verified 09/13/24 09:35) HPI Comments Details: Patient was seen by me in the past for hidradenitis suppurativa of the posterior scalp area. He was referred to a plastic surgeon because of the extensive disease and he would like to have this area resected. At the time when he was seen by Plastic surgery, the patient has significant smoking history in the surgeon refused to operate on him. Patient presents here because he would like a referral to new plastic surgeon and closer proximity. [facility] Medical History (Updated 09/13/24 @ 09:46 by Benja Barba MD) Epidermal cyst Abscess of hand, right Cellulitis Dog bite of extremity Acute coronary syndrome NSTEMI (non-ST elevated myocardial infarction) Smoking Essential hypertension Type 2 diabetes mellitus with unspecified complications Atherosclerotic cardiovascular disease HTN (hypertension) Diabetes Surgical History (Updated 09/13/24 @ 09:46 by Benja Barba MD) Hidradenitis suppurativa History of coronary artery stent placement S/P cardiac cath History of cardiac cath (~03/2019) Family History Father No problems noted. Mother Leukemia HTN (hypertension) Social History Household Members: None Housing: Apartment Are you a primary home child care provider to a significant other at home: No Do you presently have visiting nurse or other home services: No Alcohol intake: current Alcohol intake frequency: holidays/special occasions only Comment: refuses bed alarm Patient Tobacco Use Status: Current everyday Tobacco user Tobacco use type: Cigarette Cigarette Packs Per Day: 0.25 Cigarettes Per Day: 5 Second Hand Smoke Exposure: No Substance Use Type: Marijuana Advance Directives Date on File: 02/04/21 service: No Current occupational status: unemployed Physical Exam HEENT Other: Appreciable significant hidradenitis suppurativa involving the posterior scalp and neck area. No active infection at this time Assessment & Plan Assessment & Plan (1) Suppurative hidradenitis: Code(s): L73.2 - Hidradenitis suppurativa Category: Medical Plan We will try to obtain a plastic surgeon consultation [place] for the patient. This was communicated to him. All questions answered. Arrangements made for this. Patient will otherwise follow-up with me p.r.n. Coding Level of Care Code Est Pt Level 4 (52188) Diagnoses Suppurative hidradenitis L73.2
== END 2024-09-13 09:41 | disposition home or self-care (01) ==
LOC: HO.HGS 09:29
PROVIDERS: PCP Internal Medicine; Visit Provider Surgery
DX: L73.2 Hidradenitis suppurativa (principal)
CPT/HCPCS: 99214

== ENCOUNTER → 2024-09-13 09:29 | Outpatient (BNVA) | payer OTHER, SELFPAY | PROVIDERS: PCP Internal Medicine; Visit Provider Surgery | DX: L73.2 Hidradenitis suppurativa (principal); F17.210 Nicotine dependence, cigarettes, uncomplicated | CPT/HCPCS: 99212 ==

== ENCOUNTER 2024-10-31 15:05 | Outpatient (AMB) | payer OTHER, SELFPAY ==
--- NOTE | 2024-10-31 15:08 | MHC.OFFVIS ---
Intake Visit Reasons: Greenlight Laser follow up Intake Note: Patient is present for GREENLIGHT LASER F/U Urology Medication:TERAZOSIN,FINASTERIDE,TADALAFIL,SILDENAFIL Antibiotic Allergy:NONE Blood Thinner:ASPIRIN Data Analysis Assistant Required: No Allergies No Known Allergies [No Known Allergies*] Allergy (Verified 10/31/24 15:11) HPI Comments Details: Cruz is a is a pleasant male. He is a patient of Dr. Alonso. 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 Trial CGM. Has urgency and frequency with burning procedure Leukocytes on UA. Will treat with antibiotics. Erectile dysfunction Progressive Trouble maintaining erections On daily tadalafil 5 mg Elevated PSA Prior PSA high Prior negative biopsy PSA 9 PSA - 08/03 11.4, 08/06 7.0, 04/07 10.3 Reports increasing nocturia x3 with weakness of stream Current therapy includes tamsulosin and finasteride OBDULIO large prostate Bladder ultrasound 09/07 Greenlight Laser [facility] Medical History Epidermal cyst Abscess of hand, right Cellulitis Dog bite of extremity Acute coronary syndrome NSTEMI (non-ST elevated myocardial infarction) Smoking Essential hypertension Type 2 diabetes mellitus with unspecified complications Atherosclerotic cardiovascular disease HTN (hypertension) Diabetes Surgical History Hidradenitis suppurativa History of coronary artery stent placement S/P cardiac cath History of cardiac cath (~03/2019) Family History Father No problems noted. Mother Leukemia HTN (hypertension) Social History Household Members: None Housing: Apartment Are you a primary hospice patient care secretary to a significant other at home: No Do you presently have visiting nurse or other home services: No Alcohol intake: current Alcohol intake frequency: holidays/special occasions only Comment: refuses bed alarm Patient Tobacco Use Status: Current everyday Tobacco user Tobacco use type: Cigarette Cigarette Packs Per Day: 0.25 Cigarettes Per Day: 5 Second Hand Smoke Exposure: No Substance Use Type: Marijuana Advance Directives Date on File: 02/04/21 service: No Current occupational status: unemployed Assessment & Plan Assessment & Plan (1) Blood glucose labile: Code(s): R73.09 - Other abnormal glucose Category: Medical (2) Type 2 diabetes mellitus with unspecified complications: Code(s): E11.8 - Type 2 diabetes mellitus with unspecified complications Category: Medical Orders: Orders AMB Urinalysis Automated Today Z13.9 - Encounter for screening, unspecified Medications: New flash glucose sensor (FreeStyle Richelle 14 Day Sensor kit) As directed 2 ea 0RF E11.8 - Type 2 diabetes mellitus with unspecified complications, R73.09 - Other abnormal glucose sulfamethoxazole-trimethoprim 800-160 mg (Bactrim DS) 1 tab PO BID 5 days 10 tabs 0RF N39.0 - Urinary tract infection, site not specified Coding Diagnoses Blood glucose labile R73.09 Type 2 diabetes mellitus with unspecified complications E11.8
== END 2024-10-31 15:35 | disposition home or self-care (01) ==
LOC: HO.HUSH 15:05
PROVIDERS: PCP Internal Medicine; Visit Provider Urology
DX: Z13.9 Encounter for screening, unspecified (principal)

== ENCOUNTER → 2024-10-31 15:05 | Outpatient (BNVA) | payer OTHER, SELFPAY | PROVIDERS: PCP Internal Medicine; Visit Provider Urology | DX: R73.09 Other abnormal glucose (principal); N39.0 Urinary tract infection, site not specified | CPT/HCPCS: 81003; 99212 ==

== ENCOUNTER → 2024-11-02 11:00 | Outpatient (BNV) | payer OTHER, SELFPAY | PROVIDERS: PCP Internal Medicine; Referring Provider Internal Medicine; Visit Provider Internal Medicine | DX: D50.9 Iron deficiency anemia, unspecified (principal) | CPT/HCPCS: 99204; G2211 ==

== ENCOUNTER 2024-11-20 14:15 | Outpatient (AMB) | payer MEDICARE, SELFPAY ==
--- NOTE | 2024-11-20 14:16 | MHC.OFFVIS ---
Vital Signs 11/20/24 14:19 Height 5 ft 11 in Weight 210 lb BMI 29.3 Pulse 80 Pulse Source Pulse Oximeter Pulse Oximetry (%) 98 Oxygen Delivery Method Room Air Intake Visit Reasons: follow up carbuncle Allergies No Known Allergies [No Known Allergies*] Allergy (Verified 11/20/24 14:20) HPI HPI follow up carbuncle: Details: He still has area on neck about same despite Clindamycin cream and po Doxycycline. He has no fever or chills. [facility] Medical History Epidermal cyst Abscess of hand, right Cellulitis Dog bite of extremity Acute coronary syndrome NSTEMI (non-ST elevated myocardial infarction) Smoking Essential hypertension Type 2 diabetes mellitus with unspecified complications Atherosclerotic cardiovascular disease HTN (hypertension) Diabetes Surgical History Hidradenitis suppurativa History of coronary artery stent placement S/P cardiac cath History of cardiac cath (~03/2019) Family History Father No problems noted. Mother Leukemia HTN (hypertension) Social History Household Members: Family and None Housing: Apartment Are you a primary healthcare economics consultant to a significant other at home: No Do you presently have visiting nurse or other home services: No Alcohol intake: current Alcohol intake frequency: holidays/special occasions only Comment: refuses bed alarm Patient Tobacco Use Status: Current everyday Tobacco user Tobacco use type: Cigarette Cigarette Packs Per Day: 0.25 Second Hand Smoke Exposure: No Substance Use Type: Marijuana Advance Directives Date on File: 02/04/21 service: No Current occupational status: unemployed Gender identity: Male Review of Systems Const All systems reviewed & are unremarkable except as noted in HPI and below Physical Exam Vital Signs: Last Vital Signs Pulse 80 11/20/24 14:19 Pulse Ox 98 11/20/24 14:19 Oxygen Delivery Method Room Air 11/20/24 14:19 BMI result Body Mass Index 29.3 Const Other: General: cooperative Orientation/consciousness: patient oriented x3 HEENT Head: Yes normal to inspection Mouth: Normal oral and palatal mucosa present Eyes General: appearance normal, both eyes and all related structures Pupils: Equal, round and reactive pupils present Neck Other: some raised area posteriorly with microabscesses likely Resp Effort & Inspection: normal respiratory effort Cardio Rate: regular rate Rhythm: regular rhythm GI Palpation (GI): Soft to palpation and nontender General: Yes no CVA tenderness Back/Spine/Pelvis Back: no CVA tenderness Skin General skin exam: no rashes or lesions noted Neuro General: patient oriented x3 Cranial nerves: Yes CN's II-XII intact bilaterally and Yes Equal, round and reactive pupils present Extrem General: Yes normal to inspection Psych Appearance: grossly normal Assessment & Plan Assessment & Plan (1) Suppurative hidradenitis: Comment: He has no improvement with antibiotics Code(s): L73.2 - Hidradenitis suppurativa Category: Medical Plan: Surgery eval Dr Fleming remove cyst likely posterior neck. See back if needed. Coding Level of Care Code Est Pt Level 3 (76425) Diagnoses Suppurative hidradenitis L73.2
[2024-11-20 14:19] VITALS: PULSE 80; O2SAT 98; BMI 29.3
== END 2024-11-20 15:14 | disposition home or self-care (01) ==
LOC: HO.HID 14:15
PROVIDERS: PCP Internal Medicine; Visit Provider Internal Medicine
DX: L73.2 Hidradenitis suppurativa (principal)
CPT/HCPCS: 99213

== ENCOUNTER 2024-11-28 12:38 | Outpatient (REF) | payer MEDICARE, SELFPAY ==
--- NOTE | ~2024-11-28 | XR_ITS ---
EXAMINATION: XR CHEST CLINICAL INFORMATION: smoker: Malaise COMPARISON: 08/31/2023. TECHNIQUE: 2 views of the chest were obtained. FINDINGS: The cardiac, hilar, and mediastinal contours are normal. Aorta is calcified. The lungs are clear bilaterally. There is no pneumothorax or pleural effusion. There is no focal osseous or soft tissue abnormality. XR/XR chest 2V IMPRESSION: No active pulmonary disease. Electronically signed by: Calin Serrano MD 11/28/2024 01:00 PM [facility]
== END 2024-11-28 12:39 | disposition home or self-care (01) ==
LOC: HO.HHCX 12:38
PROVIDERS: Visit Provider Internal Medicine
DX: F17.200 Nicotine dependence, unspecified, uncomplicated (principal)
CPT/HCPCS: 71046

== ENCOUNTER → 2024-11-28 12:38 | Outpatient (BNV) | payer MEDICARE, SELFPAY | PROVIDERS: Visit Provider Radiology Diagnostic Radiology | DX: R53.81 Other malaise (principal) | CPT/HCPCS: 71046 ==

== ENCOUNTER 2024-12-12 13:57 | Outpatient (AMB) | payer MEDICARE, SELFPAY ==
--- NOTE | 2024-12-12 14:07 | MHC.OFFVIS ---
Intake Visit Reasons: 6W Urinalysis/PVR Intake Note: Patient is present for 6W URINALYSIS/PVR Urology Medication:TERAZOSIN,FINASTERIDE,TADALAFIL Antibiotic Allergy:NONE Blood Thinner:ASPIRIN Todays PVR:22ML'S Manager Data Warehousing Required: No Allergies No Known Allergies [No Known Allergies*] Allergy (Verified 12/12/24 14:08) HPI Comments Details: Cruz navarro a is a pleasant male. He is a patient of Dr. Alonso. 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 One month follow-up Prior antibiotics for urinary urgency [facility] September 07 PVR 20 cc Improved diabetes control Laboratories - 2022 T 545, 08/08 650 Erectile dysfunction Progressive Trouble maintaining erections On daily tadalafil 5 mg Elevated PSA Prior PSA high Prior negative biopsy PSA 9 PSA - 08/03 11.4, 08/06 7.0, 04/07 10.3 Reports increasing nocturia x3 with weakness of stream Current therapy includes tamsulosin and finasteride OBDULIO large prostate Bladder ultrasound 09/07 [facility] - pathology chronic prostatitis [facility] Medical History Epidermal cyst Abscess of hand, right Cellulitis Dog bite of extremity Acute coronary syndrome NSTEMI (non-ST elevated myocardial infarction) Smoking Essential hypertension Type 2 diabetes mellitus with unspecified complications Atherosclerotic cardiovascular disease HTN (hypertension) Diabetes Surgical History Hidradenitis suppurativa History of coronary artery stent placement S/P cardiac cath History of cardiac cath (~03/2019) Family History Father No problems noted. Mother Leukemia HTN (hypertension) Social History Household Members: Family and None Housing: Apartment Are you a primary respiratory care practitioner to a significant other at home: No Do you presently have visiting nurse or other home services: No Alcohol intake: current Alcohol intake frequency: holidays/special occasions only Comment: refuses bed alarm Patient Tobacco Use Status: Current everyday Tobacco user Tobacco use type: Cigarette Cigarette Packs Per Day: 0.25 Second Hand Smoke Exposure: No Substance Use Type: Marijuana Advance Directives Date on File: 02/04/21 service: No Current occupational status: unemployed Gender identity: Male Review of Systems Const Denies chills and Denies fever(s) Card Reports no additional complaints and Denies syncope Resp Denies cough GI Denies abdominal pain and Denies heartburn Reports as per HPI and Denies change in libido Neuro Denies syncope Psych Denies change in libido Endo Denies change in libido Physical Exam Const General: cooperative, healthy appearing, comfortable and no acute distress Orientation/consciousness: patient oriented x3 HEENT Face and sinus: Yes normal facial exam Mouth: moist mucous membranes Neck Neck: Yes normal visual inspection, Yes full ROM and Yes trachea midline Chest Chest palpation & inspection: normal inspection of the chest Resp Effort & Inspection: normal respiratory effort, able to speak in complete sentences and no respiratory distress GI Inspection: Yes normal to inspection Back/Spine/Pelvis Cervical Spine: normal cervical lordosis Thoracic/Lumbar Spine: thoracic and lumbar spine normal to inspection Skin General skin exam: no rashes or lesions noted Neuro General: patient oriented x3, gait normal, tone normal and moves all extremities Extrem General: Yes normal to inspection and Yes capillary refill normal Office Procedures Post Void Residual Post Residual Void Post Void Residual (PVR): 22 33422-Eflv Void Residual by ultrasound Assessment & Plan Assessment & Plan (1) Nocturia more than twice per night: Code(s): R35.1 - Nocturia Category: Medical Plan Short term oxybutynin Medications: New oxybutynin chloride 5 mg PO BEDTIME PRN 30 tabs 0RF bladder spasms R35.1 - Nocturia, R39.15 - Urgency of urination, R33.9 - Retention of urine, unspecified Patient Instructions: This note is constructed using voice recognition software. While every effort has been made to ensure accuracy academic support specialist errors may have been included. Imaging studies, laboratory and physical exam results were discussed and reviewed in detail. No major barriers to patient understanding were identified. An opportunity to ask questions regarding the treatment plan was provided. All questions were answered. The patient expressed understanding and agreement with the above treatment plan. The patient is aware they should contact our office by phone for worsening of their current condition or the appearance of new urologic symptoms. Compliance is encouraged with any medications and followup testing that is ordered. It is a privilege to participate in the urologic care of your patient. If you have any questions or concerns regarding treatment for the above conditions, or other urologic issues, please do not hesitate to contact me. The office telephone contact is [phone]. Sincerely, Dr Don Del Rio MD, [facility] - Urology Compassionate Specialist Care for the Genitourinary System Coding Level of Care Code Est Pt Level 3 (14932) Diagnoses Nocturia more than twice per night R35.1 CPT Codes Post Residual Void - PVR CPT Code: 44537-Mfsv Void Residual by ultrasound ([id number])
--- OUTSIDE RECORDS SUMMARY | 2024-12-12 14:52 | XMS_ITS | Encounter Summary ---
Author Organization [employer] Address [address] [place] [address] Care Team Providers Care Tower Erector Helper Name Role Phone Aj Dumont MD Primary Care Provide r Reason for Visit * Reason Onset Date Comments Chart Prep 11/13/2024 Encounter Details Date Type Department Care Team ([facility] Contact Info) Description 11/13/2024 Telephone [facility] [address] [place] [address] Aj Dumont MD [address] [place] [address] Chart Prep Social History Tobacco Use Types Packs/Day Years Used Date Smoking Tobacco: Some Days Cigarettes Passive Smoke Exposure: Current Smokeless Tobacco: Never Comments:2-3 cigarette daily ; pt trying to quit Alcohol Use Standard Drinks/Week Comments Not Currently 0 (1 standard drink = 0.6 oz pur e alcohol) Depression Answer Date Recorded Patient Health Questionnaire-9 Score 3 03/16/2024 Patient Health Questionnaire-9 Score 3 03/16/2024 Last PHQ-9: Questionnaire Data Not on file 0 03/16/2024 Housing Stability Answer Date Recorded What is your housing situation today? I have genevieve boston 03/16/[address] you li ve. Do you have problems with any of the following? None of the above 03/16/2024 Food Insecurity Answer Date Recorded Within the past 12 months, y ou worried that your food would run out before you got money to buy more: Never True 03/16/2024 Within the past 12 months,th e food you bought just didn't last and you didn't have enough money to get more: Never True 12/2023 Transportation Answer Date Recorded In the past 12 months, has l ack of transportation kept you from medical appts, meetings, work or from getting things needed for daily living? No 03/16/2024 Utilities Answer Date Recorded In the past 12 months, has t he electric, gas, oil or water company threatened to shut off services in your home? No 03/16/2024 Depression Answer Date Recorded Patient Health Questionnaire-2 Score 0 03/16/2024 Sex and Gender Information Value Date Recorded Sex Assigned at Male 09/14/2022 10:17 AM EDT Legal Sex Male 10:17 AM EDT Gender Identity Male 09/14/2022 10:17 AM EDT Sexual Orientation Straight 09/14/2022 10 :17 AM EDT documented as of this encounter Miscellaneous Notes * Telephone Encounter - Tram Garica [place] - 11/13/2024 1:13 PM EST Chart Prep Labs: done Images: not applicable Vaccines due: Covid Due, Hep A Due, Hep B Due, PCV20 Due, Flu Due, and RSV in Pharmacy Due Referrals: Gastroenterology Appt on 12/14/2024 @1PM. Screenings: Colonoscopy , Eye Exam, and Foot Exam Overdue care gaps: A1C, Glucose, Sbirt, and Oral Health Chart prep for upcoming appt with Dr.Esparza rios. LB documented in this encounter Plan of Treatment Upcoming Encounters Date Type Department Care Team (Late st Contact Info) Description 12/25/2024 1:00 PM EST Telemedicine [facility] [address] [place] [address] 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, SHEREE [address] [place] [address] 01/23/2025 2:00 PM EDT Office Visit [facility] [address] [place] [address] Aj Dumont MD [address] [place] [address] documented as of this encounter Goals Goal Patient Goal Type Associated Problems Recent Progress Patient-Stated? Author Blood Pressure < 140/90 Blood Pressure Hypertension 127/74(2024 11:20 AM EST) Natanael Choi, [place] documented as of this encounter Visit Diagnoses Not on filedocumented in this encounter Additional Health Concerns Assessment Noted Time PHQ-9 Depression Total Score: 3 03/16/20 24 2:58 PM EDT documented as of this encounter Care Teams Tower Erector Helper Relationship Specialty Start Date End Date Aj Dumont MD [address] [place] [address] PCP - General Internal Medicine 09/12/14 [facility] 10/17/24 documented as of this encounter
--- OUTSIDE RECORDS SUMMARY | 2024-12-12 14:52 | XMS_ITS | Encounter Summary ---
Author Organization [employer] Address [address] [place] [address] Care Team Providers Care Benefits Manager Name Role Phone Aj Dumont MD Primary Care Provide r Reason for Visit * Reason Comments Med Refill Encounter Details Date Type Department Care Team ([facility] Contact Info) Description 11/21/2024 Refill [facility] [address] [place] [address] Aj Dumont MD [address] [place] [address] S/P coronary artery stent placement Social History Tobacco Use Types Packs/Day Years [...] Recorded Patient Health Questionnaire-2 Score 0 03/16/2024 Internet Access Answer Date Recorded Internet Access Q1 Yes 11/17/2024 Internet Access Q2 Not on file 11/17/2024 Sex and Gender Information Value Date Recorded Sex Assigned at Male 09/14/2022 10:17 AM EDT Legal Sex Male 10:17 AM EDT Gender Identity Male 09/14/2022 10:17 AM EDT Sexual Orientation Straight 09/14/2022 10 :17 AM EDT documented as of this encounter Plan of Treatment Upcoming Encounters Date Type Department Care Team (Late st Contact Info) Description 12/25/2024 1:00 PM EST Telemedicine [facility] [address] [place] [address] 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, RN [address] [place] [address] 01/23/2025 2:00 PM EDT Office Visit [facility] [address] [place] [address] Aj Dumont MD [address] [place] [address] documented as of this encounter Goals Goal Patient Goal Type Associated Problems Recent Progress Patient-Stated? Author Blood Pressure < 140/90 Blood Pressure Hypertension 127/74(2024 11:20 AM EST) No Natanael Oquendo, DorcasD documented as of this encounter Visit Diagnoses Diagnosis S/P coronary artery stent placement Postsurgical percutaneous transluminal coronary angioplasty status documented in this encounter Additional Health Concerns Assessment Noted Time PHQ-9 Depression Total Score: 3 03/16/20 24 2:58 PM EDT documented as of this encounter Care Teams Benefits Manager Relationship Specialty Start Date End Date Aj Dmuont MD [address] [place] [address] PCP - General Internal Medicine 09/12/14 [facility] 10/17/24 documented as of this encounter
--- OUTSIDE RECORDS SUMMARY | 2024-12-12 14:52 | XMS_ITS | Clinical Summary ---
Author Organization [facility] Address [address] [place] [address] Care Team Providers Care Rim Technician Name Role Phone Unavailable Primary Care Provider Unavailabl e Social History Tobacco Use Types Packs/Day Years Used Date Smoking Tobacco: Never Assessed Sex and Gender Information Value Date Recorded Sex Assigned at Not on file Gender Identity Not on file Sexual Orientation Not on file Plan of Treatment Health Maintenance Due Date Last Done Comments DTaP,Tdap,and Td Vaccines (1 - Tdap) 1979 Zoster Vaccines (1 of 2) 2010 COVID-19 Vaccine ( - 2023-2 5 season) 2024 Influenza Vaccine (#1) 2024 RSV Immunization Patients 60 + Years Old (1 - 1-dose 75+ series) 2035 HIB Vaccines Aged Out No longer eligi ble based on patient's age to complete this topic HPV Vaccines Aged Out No longer eligi ble based on patient's age to complete this topic Hepatitis A Vaccines Aged Out No long er eligible based on patient's age to complete this topic Hepatitis B Vaccines Aged Out No long er eligible based on patient's age to complete this topic IPV Vaccines Aged Out No longer eligi ble based on patient's age to complete this topic MMR Vaccines Aged Out No longer eligi ble based on patient's age to complete this topic Meningococcal ACWY Vaccine Aged Out N o longer eligible based on patient's age to complete this topic Pneumococcal Vaccine: Pediat rics (0 to 5 Years) and At-Risk Patients (6 to 64 Years) Aged Out No longer eligible b ased on patient's age to complete this topic RSV Immunization Patients Un rolo 20 months Aged Out No longer eligible b ased on patient's age to complete this topic Varicella Vaccines Aged Out No longer eligible based on patient's age to complete this topic
--- OUTSIDE RECORDS SUMMARY | 2024-12-12 14:52 | XMS_ITS | Encounter Summary ---
Author Organization [employer] Address [address] [place] [address] Care Team Providers Care Truck Loader Name Role Phone Aj Dumont MD Primary Care Provide r Reason for Visit * Reason Onset Date Comments Med Refill 09/29/2023 Encounter Details Date Type Department Care Team ([facility] Contact Info) Description 09/29/2023 Telephone [facility] [address] [place] [address] Aj Dumont MD [address] [place] [address] Med Refill Social History Tobacco Use Types Packs/Day Years Used Date Smoking Tobacco: Some Days Cigarettes Passive Smoke Exposure: Current Smokeless Tobacco: Never Alcohol Use Standard Drinks/Week Comments Not Currently 0 (1 standard drink = 0.6 oz pur e alcohol) Depression Answer Date Recorded Patient Health Questionnaire-9 Score 6 01/28/2023 Housing Stability Answer Date Recorded What is your housing situation today? I have genevieve boston 08/30/[address] you li ve. Do you have problems with any of the following? None of the above 08/30/2023 Food Insecurity Answer Date Recorded Within the past 12 months, y ou worried that your food would run out before you got money to buy more: Never True 08/30/2023 Within the past 12 months,th e food you bought just didn't last and you didn't have enough money to get more: Never True Transportation Answer Date Recorded In the past 12 months, has l ack of transportation kept you from medical appts, meetings, work or from getting things needed for daily living? No 08/30/2023 Utilities Answer Date Recorded In the past 12 months, has t he electric, gas, oil or water company threatened to shut off services in your home? No 08/30/2023 Depression Answer Date Recorded Patient Health Questionnaire-2 Score 2 01/28/2023 Sex and Gender Information Value Date Recorded Sex Assigned at Male 09/14/2022 10:17 AM EDT Legal Sex Male 10:17 AM EDT Gender Identity Male 09/14/2022 10:17 AM EDT Sexual Orientation Straight 09/14/2022 10 :17 AM EDT documented as of this encounter Miscellaneous Notes * Telephone Encounter - Johnny Grande - 09/29/2023 3:37 PM EST Tc from patient requesting medication refill for morphine CR (MS Contin) 30 MG 12 hr tablet and oxyCODONE-acetaminophen (Percocet) 5-325 MG tablet. documented in this encounter Plan of Treatment Upcoming Encounters Date Type Department Care Team (Late st Contact Info) Description 12/25/2024 1:00 PM EST Telemedicine [facility] [address] [place] [address] 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, SHEREE [address] [place] [address] 01/23/2025 2:00 PM EDT Office Visit [facility] [address] [place] [address] Aj Dumont MD [address] [place] [address] documented as of this encounter Goals Goal Patient Goal Type Associated Problems Recent Progress Patient-Stated? Author Blood Pressure < 140/90 Blood Pressure Hypertension 127/74(2024 11:20 AM EST) No Natanael Oquendo, PharmD documented as of this encounter Visit Diagnoses Not on filedocumented in this encounter Additional Health Concerns Assessment Noted Time PHQ-9 Depression Total Score: 6 01/29/20 23 2:25 PM EDT documented as of this encounter Care Teams Truck Loader Relationship Specialty Start Date End Date Aj Dumont MD [address] [place] [address] PCP - General Internal Medicine 09/12/14 [facility] 10/17/24 documented as of this encounter
--- OUTSIDE RECORDS SUMMARY | 2024-12-12 14:52 | XMS_ITS | Encounter Summary ---
Author Organization [facility] Address [address] [place] [address] 7 [place] [address] Care Team Providers Care Welding Machine Tender Name Role Phone Aj Dumont MD Primary Care Provide r Reason for Referral * Medications - Closed Specialty Diagnoses / Procedures Referred By Remy t Referred To Contact Diagnoses Type 2 diabetes mellitus without complication, with long-term current use of insulin ([facility]) Aj Dumont MD [address] [place] [address] Phone: tel: fax: Referral ID Status Reason Start Date Expiration Date Visits Re quested Visits Authorized [id number] Closed 1 1 * Consultation (Routine) - Authorized Specialty Diagnoses / Procedures Referred By Remy jean Referred To Contact Optometry Diagnoses Type 2 diabetes mellitus without complication, with long-term current use of insulin ([facility]) Aj Dumont MD [address] [place] [address] Phone: tel: fax: [facility] OPTOMET[facility] [address] [place] [address] Phone: tel: fax: Referral ID Status Reason Start Date Expiration Date Visits Requested Visits Authorized [id number] Authorized Consult and Treat 11/28/2024 11/28/2025 1 1 Reason for Visit * Reason Comments Anemia CHW - Office Visit Pt wants a Dentist r eferral Encounter Details Date Type Department Care Team (Late st Contact Info) Description 11/28/2024 11:30 AM EST Office Visit [facility] [address] [facility] [place] [address] Aj Dumont MD [address] [facility] [place] [address] Iron deficiency anemia, unspecified iron deficiency anemia type (Primary Dx); Type 2 diabetes mellitus without complication, with long-term current use of insulin ([facility]); Primary hypertension; Carbuncles; Tobacco dependence Social History Tobacco Use Types Packs/Day Years [...] AM EDT documented as of this encounter Last Filed Vital Signs Vital Sign Reading Time Taken Comments Blood Pressure 127/74 11/28/2024 11:20 AM EST Pulse 73 11/28/2024 11:20 AM EST Temperature 36.2 ??C (97.1 ??F) 11/28/2024 11:[address] Respiratory Rate 19 11/28/2024 11:20 AM EST Oxygen Saturation 98% 11/28/2024 11:20 AM EST Inhaled Oxygen Concentration - - Weight 95.3 kg (210 lb) 11/28/2024 11:20 AM EST Height 180.3 cm (5' 11 ) 11/28/2024 11:20 AM EST Body Mass Index 29.29 11/28/2024 11:20 AM EST documented in this encounter Progress Notes * Aj Grande MD - 11/28/2024 11:30 AM EST SUBJECTIVE Cruz Graham is a 64 y.o. male who presents for Anemia and CHW - Office Visit (Pt wants a Dentist referral). Anemia Presents for follow-up visit. There has been no abdominal pain or fever. Review of Systems Constitutional: Negative for fever. HENT: Negative for sore throat. Respiratory: Negative for cough and shortness of breath. Cardiovascular: Negative for chest pain. Gastrointestinal: Negative for abdominal pain. Neurological: Negative for headaches. No Known Allergies OBJECTIVE Vitals: 11/28/24 1120 BP: 127/74 BP Location: Left arm Patient Position: Sitting BP Cuff Size: Adult Pulse: 73 Resp: 19 Temp: 97.1 ??F (36.2 ??C) TempSrc: Temporal SpO2: 98% Weight: 210 lb (95.3 kg) Height: 5' 11 (1.803 m) Physical Exam Vitals reviewed. Constitutional: Appearance: Normal appearance. HENT: Head: Normocephalic and atraumatic. Right Ear: External ear normal. Left Ear: External ear normal. Nose: Nose normal. Mouth/Throat: Mouth: Mucous membranes are moist. Eyes: Conjunctiva/sclera: Conjunctivae normal. Cardiovascular: Rate and Rhythm: Normal rate and regular rhythm. Pulmonary: Effort: Pulmonary effort is normal. Breath sounds: Normal breath sounds. Skin: General: Skin is warm. Neurological: Mental Status: He is alert. Mental status is at baseline. Assessment/Plan Problem List Items Addressed This Visit Diabetes mellitus, type II (CMS/HCC) Patient here for a f/u DM controlled He is on a regimen of: Metformin 1000 mg po BID and Lantus 50 units sc q pm. Hgb A1c 11/28/2024: 8.3 Eye exam was last done 09/03/2017. Microalbumin checked on: 04/30/2021 was: 1.8 Pt on an COLETTE inhibitor (lisinopril) Foot check zero Today I have recommended to: Start Trulicity 0.75 once a week. Lower Lantus to 40 units subcutaneous at bedtime. No hx of thyroid CA nor Fan Hx nor Pancreatitis Pt reports compliance with Asa 81 mg po daily Pt advised to: adhere to diabetic diet check your blood sugars regularly check your feet on a daily basis F/u 6 weeks Relevant Medications Dulaglutide (Trulicity) 0.75 MG/0.5ML solution auto-injector Other Relevant Orders POCT Glucose (Completed) POCT HGB A1C (Completed) Referral to [facility] Iron deficiency anemia - Primary Lab Results Component Value Date WBC 7.0 08/10/2024 HGB 10.1 (L) 08/10/2024 HCT 32.8 (L) 08/10/2024 MCV 77.4 (L) 08/10/2024 PLT 383 08/10/2024 Persistent. Iron studies indicative of Iron deficiency, started in supplementation, did not tolerate due to constipation. Now under the care of Hematology, last seen 11/02/2024. They recommended Iron infusion and 3 month follow up Pt also referred to GI, appointment already scheduled Hypertension Patient is here for a f/u BP remains controlled currently on a regimen of: Lisinopril 40mg po daily, Amlodipine 5 mg po daily and Metoprolol XL 50 mg po daily I have recommended: continue with current regimen Pt's most recent electrolytes, Bun and Creatinine done on: Lab Results Component Value Date NA 142 07/26/2024 NA 140 03/23/2024 K 4.3 07/26/2024 K 4.1 03/23/2024 CL 108 07/26/2024 CL 105 03/23/2024 BUN 13 07/26/2024 BUN 13 03/23/2024 CREATININE 0.88 07/26/2024 CREATININE 0.75 03/23/2024 patient has advised to adhere to a low sodium diet, encouraged about medication compliance, counseled about weight loss. f/u 3 months Carbuncles Pt with hidradenitis suppurativa neck, seen by General surgeon s/p I&D Rx with Doxy. Pt was seen by plastic surgeon at [facility] in [place] he recommended a procedure but not until he stops smoking. Pt is trying to quit.he is trying the nicotine gum Seen by I.D (dr Denis 05/29/2024) who recommended plastic surgeon alexy. Pt already has an appointment scheduled with plastic surgeon. Today reminded of that appointment Tobacco dependence Counseled and educated about tobacco cessation. He says he has never smoked more than a few cigarettes a day Chest x-ray ordered Relevant Orders XR Chest 2 Views documented in this encounter Miscellaneous Notes * Assessment & Plan Note - Aj Grande MD - 11/28/2024 11:38 AM EST Associated Problem(s): Tobacco dependence Counseled and educated about tobacco cessation. He says he has never smoked more than a few cigarettes a day Chest x-ray ordered * Assessment & Plan Note - Aj Grande MD - 11/28/2024 11:37 AM EST Associated Problem(s): Carbuncles Pt with hidradenitis suppurativa neck, seen by General surgeon s/p I&D Rx with Doxy. Pt was seen by plastic surgeon at [facility] in [place] he recommended a procedure but not until he stops smoking. Pt is trying to quit.he is trying the nicotine gum Seen by I.D (dr Denis 05/29/2024) who recommended plastic surgeon alexy. Pt already has an appointment scheduled with plastic surgeon. Today reminded of that appointment * Assessment & Plan Note - Aj Grande MD - 11/28/2024 11:36 AM EST Associated Problem(s): Hypertension Patient is here for a f/u BP remains controlled currently on a regimen of: Lisinopril 40mg po daily, Amlodipine 5 mg po daily and Metoprolol XL 50 mg po daily I have recommended: continue with current regimen Pt's most recent electrolytes, Bun and Creatinine done on: Lab Results Component Value Date NA 142 07/26/2024 NA 140 03/23/2024 K 4.3 07/26/2024 K 4.1 03/23/2024 CL 108 07/26/2024 CL 105 03/23/2024 BUN 13 07/26/2024 BUN 13 03/23/2024 CREATININE 0.88 07/26/2024 CREATININE 0.75 03/23/2024 patient has advised to adhere to a low sodium diet, encouraged about medication compliance, counseled about weight loss. f/u 3 months * Assessment & Plan Note - Aj Grande MD - 11/28/2024 11:24 AM EST Associated Problem(s): Diabetes mellitus, type II (CMS/HCC) Patient here for a f/u DM controlled He is on a regimen of: Metformin 1000 mg po BID and Lantus 50 units sc q pm. Hgb A1c 11/28/2024: 8.3 Eye exam was last done 09/03/2017. Microalbumin checked on: 04/30/2021 was: 1.8 Pt on an COLETTE inhibitor (lisinopril) Foot check zero Today I have recommended to: Start Trulicity 0.75 once a week. Lower Lantus to 40 units subcutaneous at bedtime. No hx of thyroid CA nor Fan Hx nor Pancreatitis Pt reports compliance with Asa 81 mg po daily Pt advised to: adhere to diabetic diet check your blood sugars regularly check your feet on a daily basis F/u 6 weeks * Assessment & Plan Note - Aj Grande MD - 11/28/2024 11:22 AM EST Associated Problem(s): Iron deficiency anemia Lab Results Component Value Date WBC 7.0 08/10/2024 HGB 10.1 (L) 08/10/2024 HCT 32.8 (L) 08/10/2024 MCV 77.4 (L) 08/10/2024 PLT 383 08/10/2024 Persistent. Iron studies indicative of Iron deficiency, started in supplementation, did not tolerate due to constipation. Now under the care of Hematology, last seen 11/02/2024. They recommended Iron infusion and 3 month follow up Pt also referred to GI, appointment already scheduled documented in this encounter Plan of Treatment Upcoming Encounters Date Type Department Care Team (Late st Contact Info) Description 12/25/2024 1:00 PM EST Telemedicine [facility] [address] [place] [address] 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, RN [address] [place], [place] 01/23/2025 2:00 PM EDT Office Visit [facility] [address] [place] [address] Aj Dumont MD [address] [place] [address] Scheduled Referrals Name Type Priority Associated Diagnoses Orde r Schedule Referral to [facility] Outpatient Referral Routine Type 2 diabetes mellitus without complication, with long-term current use of insulin [facility] Expected: 11/28/2024 (Approximate), Expires: 11/28/2025 documented as of this encounter Goals Goal Patient Goal Type Associated Problems Recent Progress Patient-Stated? Author Blood Pressure < 140/90 Blood Pressure Hypertension 127/74(2024 11:20 AM EST) No Natanael Oquendo, PharmD documented as of this encounter Procedures Procedure Name Priority Date/Time Associated Diagnosis Comments XR CHEST 2 VIEWS Routine 11/28/2024 12:3 8 PM EST Tobacco dependence POCT GLYCATED HEMOGLOBIN, TOTAL Routine 11/28/2024 11:23 AM EST Type 2 diabetes mellitus without complication, with long-term current use of insulin ([facility]) POCT GLUCOSE Routine 11/28/2024 11:22 AM EST Type 2 diabetes mellitus without complication, with long-term current use of insulin ([facility]) documented in this encounter Results * XR Chest 2 Views (11/28/2024 12:38 PM EST) Anatomical Region Laterality Modality Chest Radiographic Roz ging 11/28/2024 12:3 8 PM EST Narrative 11/28/2024 1:03 PM EST ?[facility] [facility] ?[address] ?[place] [address] ?XRay Report ? Signed ? Patient: Hayden Graham,Sidney ?MR#: [id number] ?? [id number] ? : 1960 ?Acct:[id number] ? Age/Sex: 64 / M ?ADM Date: 11/28/24 ? Loc: HO.HHCX ? Attending Dr: Aj Alonso MD ? Ordering Physician: Aj Alonso MD ?? Date of Service: 11/28/24 ?? Procedure(s): XR chest 2V ?? Accession Number(s): [id number] ? cc: Aj Alonso MD ? EXAMINATION: ?? XR CHEST ? CLINICAL INFORMATION: ?? smoker: Malaise ? COMPARISON: ?? 08/31/2023. ? TECHNIQUE: ?? 2 views of the chest were obtained. ? FINDINGS: ?? The cardiac, hilar, and mediastinal contours are normal. Aorta is ?? calcified. ? The lungs are clear bilaterally. There is no pneumothorax or pleural ?? effusion. ? There is no focal osseous or soft tissue abnormality. ? XR/XR chest 2V ?? IMPRESSION: ?? No active pulmonary disease. ? Electronically signed by: ??Calin Serrano MD ??11/28/2024 01:00 PM EST RP ? Dictated By: ?Calin Serrano MD ? Signed By: ?<Electronically signed by Calin Serrano MD in OV> ?11/28/24 1300 ? DD/ 1238 ? TD/TT: 11/28/24 1240 ? Counter Control Operator: ? Procedure Note Lucía Ortiz - 11/28/[address] [address] XRay Report Signed Patient: Cruz Ryan R#: [id number] : 1960Acct:[id number] Age/Sex: 64 / MADM Date: 11/28/24 Loc: HO.HHCX Attending Dr: Aj Alonso MD Ordering Physician: Aj Alonso MD Date of Service: 11/28/24 Procedure(s): XR chest 2V Accession Number(s): [id number] cc: Aj Alonso MD EXAMINATION: XR CHEST CLINICAL INFORMATION: smoker: Malaise COMPARISON: 08/31/2023. TECHNIQUE: 2 views of the chest were obtained. FINDINGS: The cardiac, hilar, and mediastinal contours are normal. Aorta is calcified. The lungs are clear bilaterally. There is no pneumothorax or pleural effusion. There is no focal osseous or soft tissue abnormality. XR/XR chest 2V IMPRESSION: No active pulmonary disease. Electronically signed by: Calin Serrano MD 11/28/2024 01:00 PM EST RP Dictated By: Calin Serrano MD Signed By: <Electronically signed by Calin Serrano MD in OV> 11/28/24 1300 DD/ 1238 TD/TT: 11/28/24 1240 Counter Control Operator: Aj Grande MD IMG XR PROCEDURES Fin al Result * (ABNORMAL) POCT HGB A1C (11/28/2024 11:23 AM EST) Hemoglobin A1C 8.3(A) 4.0 - 6.0 % QC Media Lot # [id number] Lot# Expiration Date ,026 Blood 11/28/2024 11:2 3 AM EST Aj Grande MD POINT OF CARE TEST EN TER/EDIT ORDERABLES Final Result * (ABNORMAL) POCT Glucose (11/28/2024 11:22 AM EST) Glucose Blood, POC 228(A) 60 - 200 mg/dL QC Media Lot # [id number] Lot# Expiration Date ,025 Blood Capillary blood specimen / Unknown 11/28/2024 11:22 AM EST us Aj Grande MD POINT OF CARE TEST EN TER/EDIT ORDERABLES Final Result documented in this encounter Visit Diagnoses Diagnosis Iron deficiency anemia, unspecified iron deficiency anemia type- Primary Type 2 diabetes mellitus without complication, with long-term current use of insulin ([facility]) Primary hypertension Unspecified essential hypertension Carbuncles Tobacco dependence Tobacco use disorder documented in this encounter Additional Health Concerns Assessment Noted Time PHQ-9 Depression Total Score: 3 03/16/20 24 2:58 PM EDT documented as of this encounter Care Teams Welding Machine Tender Relationship Specialty Start Date End Date Aj Dumont MD [address] [place] [address] PCP - General Internal Medicine 09/12/14 [facility] 10/17/24 documented as of this encounter
--- OUTSIDE RECORDS SUMMARY | 2024-12-12 14:52 | XMS_ITS | Encounter Summary ---
Author Organization [employer] Address [address] [place] [address] Care Team Providers Care Psychiatry Teacher Name Role Phone Aj Dumont MD Primary Care Provide r Reason for Visit * Reason Comments Med Refill Encounter Details Date Type Department Care Team ([facility] Contact Info) Description 12/15/2023 Refill [facility] [address] [place], [place] [phone] Aj Dumont MD [address] [place] [address] Type 2 diabetes mellitus without complication, unspecified whether terminal superintendent insulin use ([facility]) Social History Tobacco Use Types Packs/Day Years [...] Info) Description 12/25/2024 1:00 PM EST Telemedicine [facility] [address] [place] [address] 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, SHEREE [address] [place], [place] [phone] 01/23/2025 2:00 PM EDT Office Visit [facility] [address] [place] [address] Aj Dumont MD [address] [place] [address] documented as of this encounter Goals Goal Patient Goal Type Associated Problems Recent Progress Patient-Stated? Author Blood Pressure < 140/90 Blood Pressure Hypertension 127/74(2024 11:20 AM EST) No Natanael Oquendo, PharmD documented as of this encounter Visit Diagnoses Diagnosis Type 2 diabetes mellitus without complication, unspecified whether correction insulin use ([facility]) documented in this encounter Additional Health Concerns Assessment Noted Time PHQ-9 Depression Total Score: 6 01/29/20 23 2:25 PM EDT documented as of this encounter Care Teams Psychiatry Teacher Relationship Specialty Start Date End Date Aj Dumont MD [address] [place] [address] PCP - General Internal Medicine 09/12/14 [facility] 10/17/24 documented as of this encounter
--- OUTSIDE RECORDS SUMMARY | 2024-12-12 14:52 | XMS_ITS | Encounter Summary ---
Author Organization [employer] Address [address] [place] [address] Care Team Providers Care Automobile Service Station Attendant Name Role Phone Aj Dumont MD Primary Care Provide r Encounter Details Date Type Department Care Team (Latest Contact Info) Description 11/28/2024 Travel Social History Tobacco Use Types Packs/Day Years [...] Info) Description 12/25/2024 1:00 PM EST Telemedicine [facility]S [address] [place], [place] [phone] 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, RN [address] [place] [address] 01/23/2025 2:00 PM EDT Office Visit [facility] MED[facility] [address] [place] [address] Aj Dumont MD [address] [place] [address] documented as of this encounter Goals Goal Patient Goal Type Associated Problems Recent Progress Patient-Stated? Author Blood Pressure < 140/90 Blood Pressure Hypertension 127/74(2024 11:20 AM EST) No Natanael Oquendo, PharmD documented as of this encounter Visit Diagnoses Not on filedocumented in this encounter Additional Health Concerns Assessment Noted Time PHQ-9 Depression Total Score: 3 03/16/20 2:58 PM EDT documented as of this encounter Care Teams Automobile Service Station Attendant Relationship Specialty Start Date End Date Aj Dumont MD [address] [place], [place] [phone] PCP - General Internal Medicine 09/12/14 [facility] 10/17/24 documented as of this encounter
--- OUTSIDE RECORDS SUMMARY | 2024-12-12 14:52 | XMS_ITS | Encounter Summary ---
Author Organization [employer] Address [address] [facility] 7t [place] [address] Care Team Providers Care Hr Coordinator Name Role Phone Aj Dumont MD Primary Care Provide r Reason for Visit * Reason Onset Date Comments Appointment Request 09/18/2024 Encounter Details Date Type Department Care Team ([facility] Contact Info) Description 09/18/2024 Telephone [facility] MED[facility] [address] [place] [address] Aj Dumont MD [address] [place] [address] Appointment Request Social History Tobacco Use Types Packs/Day Years [...] encounter Miscellaneous Notes * Telephone Encounter - Richard Carrero - 09/18/2024 12:48 PM EST TC from pt wanting to rescheduled missed 09/11 OSTEOPATHIC RESIDENT visit documented in this encounter Plan of Treatment Upcoming Encounters Date Type Department Care Team (Late st Contact Info) Description 12/25/2024 1:00 PM EST Telemedicine [facility]EDS [address] [place] [address] 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, RN [address] [place] [address] 01/23/2025 2:00 PM EDT Office Visit [facility] MED[facility] [address] [place] [address] Aj Dumont MD [address] [place] [address] documented as of this encounter Goals Goal [...] documented as of this encounter Care Teams Hr Coordinator Relationship Specialty Start Date End Date Aj Dumont MD [address] [place] [address] PCP - General Internal Medicine 09/12/14 [facility] 10/17/24 documented as of this encounter
--- OUTSIDE RECORDS SUMMARY | 2024-12-12 14:52 | XMS_ITS | Encounter Summary ---
Author Organization [employer] Address [address] [place] [address] Care Team Providers Care Pie Topper Name Role Phone Aj Dumont MD Primary Care Provide r Reason for Visit * Reason Comments Med Refill Encounter Details Date Type Department Care Team ([facility] st Contact Info) Description 02/29/2024 Refill [facility]EDS [address] [place] [address] Aj Dumont MD [address] [place] [address] Chronic midline low back pain without sciatica Social History Tobacco Use Types Packs/Day Years [...] Info) Description 12/25/2024 1:00 PM EST Telemedicine [facility]S [address] [place] [address] 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, RN [address] [place] [address] 01/23/2025 2:00 PM EDT Office Visit [facility] [address] [place] [address] Aj Dumont MD [address] [place] [address] documented as of this encounter Goals Goal Patient Goal Type Associated Problems Recent Progress Patient-Stated? Author Blood Pressure < 140/90 Blood Pressure Hypertension 127/74(2024 11:20 AM EST) No Natanael Oquendo, PharmD documented as of this encounter Visit Diagnoses Diagnosis Chronic midline low back pain without sciatica documented in this encounter Additional Health Concerns Assessment Noted Time PHQ-9 Depression Total Score: 6 01/29/20 23 2:25 PM EDT documented as of this encounter Care Teams Pie Topper Relationship Specialty Start Date End Date Aj Dumont MD [address] [place] [address] PCP - General Internal Medicine 09/12/14 [facility] 10/17/24 documented as of this encounter
--- OUTSIDE RECORDS SUMMARY | 2024-12-12 14:52 | XMS_ITS | Encounter Summary ---
Author Organization [employer] Address [address] [place] [address] [address] [place] [address] Care Team Providers Care Alarm Mechanism Adjuster Name Role Phone Aj Dumont MD Primary Care Provide r Reason for Visit * Reason Comments Med Refill Encounter Details Date Type Department Care Team ([facility] Contact Info) Description 08/02/2023 Refill [facility] [address] [place] [address] Aj Dumont MD [address] [place] [address] Chronic midline low back pain without sciatica Social History Tobacco Use Types Packs/Day Years Used Date Smoking Tobacco: Some Days Cigarettes Passive Smoke Exposure: Current Smokeless Tobacco: Never Alcohol Use Standard Drinks/Week Comments Not Currently 0 (1 standard drink = 0.6 oz pur e alcohol) Depression Answer Date Recorded Patient Health Questionnaire-9 Score 6 01/28/2023 Depression Answer Date Recorded Patient Health Questionnaire-2 Score 2 01/28/2023 Sex and Gender Information Value Date Recorded Sex Assigned at Male 09/14/2022 10:17 AM EDT Legal Sex Male 10:17 AM EDT Gender Identity Male 09/14/2022 10:17 AM EDT Sexual Orientation Straight 09/14/2022 10 :17 AM EDT documented as of this encounter Plan of Treatment Upcoming Encounters Date Type Department Care Team ([facility] Contact Info) Description 12/25/2024 1:00 PM EST Telemedicine [facility]EDS [address] [place], [place] [phone] 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 RN [address] [place] [address] 01/23/2025 2:00 PM EDT Office Visit [facility] MED[facility] [address] [place] [address] Aj Dumont MD [address] [place] [address] documented as of this encounter Goals Goal [...] documented as of this encounter Care Teams Alarm Mechanism Adjuster Relationship Specialty Start Date End Date Aj Dumont MD [address] [place] [address] PCP - General Internal Medicine 09/12/14 [facility] 10/17/24 documented as of this encounter
--- OUTSIDE RECORDS SUMMARY | 2024-12-12 14:52 | XMS_ITS | Encounter Summary ---
Author Organization [employer] Address 75 [facility] 7t [place] [address] Care Team Providers Care Nanotechnology Engineering Technologist Name Role Phone Aj Dumont MD Primary Care Provide r Reason for Visit * Reason Onset Date Comments Med Refill 11/14/2024 Encounter Details Date Type Department Care Team ([facility] st Contact Info) Description 11/14/2024 Refill [facility] MEDICINE [address] [place] [address] Aj Dumont MD [address] [place] [address] Chronic midline low back pain without sciatica [...] your housing situation today? I have genevieve ludy 03/16/[address] you li [...] as of this encounter Miscellaneous Notes * Addendum Note - Valdez Hughes RN - 11/14/2024 10:41 AM ESTAddended by: VALDEZ HUGHES on: 11/14/2024 10:41 AM Modules accepted: Orders * Telephone Encounter - Nasreen Slater - 11/14/2024 9:43 AM EST Py walked in requesting refill of medication: Oxycodone 5-325 mg Morphine cr 30 mg Pt is requesting today before 1 pm today if possible . documented in this encounter Plan of Treatment Upcoming Encounters Date Type Department Care Team (Late st Contact Info) Description 12/25/2024 1:00 PM EST Telemedicine [facility] MED & PEDS [address] [place] [address] Valdez Hughes RN [address] [place] [address] 01/23/2025 2:00 PM EDT Office Visit [facility] MEDICINE [address] [place], [place] [phone] Aj Dumont MD [address] [place], [place] [phone] documented as of this encounter Goals Goal Patient Goal Type Associated Problems Recent Progress Patient-Stated? Author Blood Pressure < 140/90 Blood Pressure Hypertension 127/74(2024 11:20 AM EST) Natanael Choi, DorcasD documented as of this encounter Visit Diagnoses Diagnosis Chronic midline low back pain without sciatica documented in this encounter Additional Health Concerns Assessment Noted Time PHQ-9 Depression Total Score: 3 03/16/20 2:58 PM EDT documented as of this encounter Care Teams Nanotechnology Engineering Technologist Relationship Specialty Start Date End Date Aj Dumont MD [address] [place] [address] PCP - General Internal Medicine 09/12/14 [facility] 10/17/24 documented as of this encounter
--- OUTSIDE RECORDS SUMMARY | 2024-12-12 14:52 | XMS_ITS | Encounter Summary ---
Author Organization [employer] Address [address] [facility] [address] [place] [address] Care Team Providers Care Advertising Account Manager Name Role Phone Aj Dumont MD Primary Care Provide r Encounter Details Date Type Department Care Team ([facility] st Contact Info) Description 11/10/2024 Refill [facility] MED [facility] PEDS [address] [place] [address] Aj Dumont MD [address] [place] [address] Chronic midline low back pain without sciatica [...] encounter Miscellaneous Notes * Telephone Encounter - Jennifer Knott LPN - 11/10/2024 1:33 PM EST Received fax from [facility] requesting refill on Oxycodone-Acetaminophen 5- 325 mg and Morphine 30 mg. documented in this encounter Plan of Treatment Upcoming Encounters Date Type Department Care Team (Late st Contact Info) Description 12/25/2024 1:00 PM EST Telemedicine [facility] MED [facility] PEDS [address] [place] [address] 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, RN [address] [place] [address] 01/23/2025 2:00 PM EDT Office Visit [facility] MEDICINE [address] [place] [address] Aj Dumont MD [address] [place], [place] [phone] documented as of this encounter Goals Goal [...] documented as of this encounter Care Teams Advertising Account Manager Relationship Specialty Start Date End Date Aj Dumont MD [address] [place] [address] PCP - General Internal Medicine 09/12/14 [facility] 10/17/24 documented as of this encounter
--- OUTSIDE RECORDS SUMMARY | 2024-12-12 14:52 | XMS_ITS | Encounter Summary ---
Author Organization [employer] Address 75 [facility] 7t [place] [address] Care Team Providers Care Ship Laborer Name Role Phone Aj Dumont MD Primary Care Provide r Reason for Visit * Reason Onset Date Comments Appointment Confirmation 11/28/2024 Encounter Details Date Type Department Care Team ([facility] Contact Info) Description 11/28/[address] [facility] MEDICINE [address] [place] [address] Aj Dumont MD [address] [place] [address] Appointment Confirmation Social History Tobacco Use Types Packs/Day Years [...] Miscellaneous Notes * Telephone Encounter - Tram Garcia [place] - 11/28/2024 11:57 AM EST Pt has appt with Plastic Surgeon on 01/02/2025 @1:20PM. Gave pt appt details and location. LB documented in this encounter Plan of Treatment Upcoming Encounters Date Type Department Care Team (Late st Contact Info) Description 12/25/2024 1:[address] [facility] CH[facility] MED & PEDS [address] [place] [address] 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 RN [address] [place] [address] 01/23/2025 2:00 PM EDT Office Visit [facility] MEDICINE [address] [place] [address] Aj Dumont MD [address] [place] [address] documented as of this encounter Goals Goal [...] documented as of this encounter Care Teams Ship Laborer Relationship Specialty Start Date End Date Aj Dumont MD [address] [place] [id number] PCP - General Internal Medicine 09/12/14 [facility] 10/17/24 documented as of this encounter
--- OUTSIDE RECORDS SUMMARY | 2024-12-12 14:52 | XMS_ITS | Encounter Summary ---
Author Organization [employer] Address 75 [facility] 7t [place] [address] Care Team Providers Care Speech Therapy Assistant Name Role Phone Aj Dumont MD Primary Care Provide r Reason for Visit * Reason Comments Med Refill Encounter Details Date Type Department Care Team ([facility] Contact Info) Description 11/28/2024 Refill [facility] MEDICINE [address] [place] [address] Aj Dumont MD [address] [place] [address] Type 2 diabetes mellitus without complication, with long-term current use of insulin ([facility]) Social History Tobacco Use Types Packs/Day Years [...] Info) Description 12/25/2024 1:00 PM EST Telemedicine [facility] MED & PEDS [address] [place] [address] 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, RN [address] [place] [address] 01/23/2025 2:00 PM EDT Office Visit [facility] MEDICINE [address] [place] [address] Aj Dumont MD [address] [place] [address] documented as of this encounter Goals Goal Patient Goal Type Associated Problems Recent Progress Patient-Stated? Author Blood Pressure < 140/90 Blood Pressure Hypertension 127/74(2024 11:20 AM EST) No Natanael Oquendo, DorcasD documented as of this encounter Visit Diagnoses Diagnosis Type 2 diabetes mellitus without complication, with long-term current use of insulin ([facility]) documented in this encounter Additional Health Concerns Assessment Noted Time PHQ-9 Depression Total Score: 3 03/16/20 24 2:58 PM EDT documented as of this encounter Care Teams Speech Therapy Assistant Relationship Specialty Start Date End Date Diamond Harjinder, Aj, MD [address] [place] [address] PCP - General Internal Medicine 09/12/14 [facility] 10/17/24 documented as of this encounter
--- OUTSIDE RECORDS SUMMARY | 2024-12-12 14:52 | XMS_ITS | Encounter Summary ---
Author Organization [employer] Address [address] [facility] [address] [place] [address] Care Team Providers Care Double Cut Off Saw Operator Name Role Phone Aj Dumont MD Primary Care Provide r Reason for Visit * Reason Comments Med Refill Encounter Details Date Type Department Care Team ([facility] st Contact Info) Description 09/30/2023 Refill [facility] MEDICINE [address] [place] [address] Loly Johnson MD [address] [place] [address] Chronic midline low back pain without sciatica [...] Info) Description 12/25/2024 1:00 PM EST Telemedicine [facility] CHC MED & PEDS [address] [place], [place] [phone] 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, RN [address] [place] [address] 01/23/2025 2:00 PM EDT Office Visit [facility] MEDICINE [address] [place] [address] Aj Dumont MD [address] [place] [address] documented as of this encounter Goals Goal [...] documented as of this encounter Care Teams Double Cut Off Saw Operator Relationship Specialty Start Date End Date Aj Dumont MD [address] [place] [address] PCP - General Internal Medicine 09/12/14 [facility] 10/17/24 documented as of this encounter
--- OUTSIDE RECORDS SUMMARY | 2024-12-12 14:52 | XMS_ITS | Encounter Summary ---
Author Organization [employer] Address 75 [facility] 7t [place] [address] Care Team Providers Care Sack Cleaning Hand Name Role Phone Aj Dumont MD Primary Care Provide r Reason for Visit * Reason Comments Med Refill Encounter Details Date Type Department Care Team ([facility] Contact Info) Description 10/11/2024 Refill [facility] MEDICINE [address] [place] [address] Aj Dumont MD [address] [place] [address] Social History Tobacco Use Types Packs/Day Years [...] Info) Description 12/25/2024 1:00 PM EST Telemedicine [facility] CH[facility] MED & PEDS [address] [place] [address] 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, SHEREE 505 [place] [address] 01/23/2025 2:00 PM EDT Office Visit [facility] MEDICINE [address] [place] [address] Aj Dumont MD [address] [place] [address] documented as of this encounter Goals Goal Patient Goal Type Associated Problems Recent Progress Patient-Stated? Author Blood Pressure < 140/90 Blood Pressure Hypertension 127/74(2024 11:20 AM EST) No Natanael Oquendo, [place] documented as of this encounter Visit Diagnoses Not on filedocumented in this encounter Additional Health Concerns Assessment Noted Time PHQ-9 Depression Total Score: 3 03/16/20 24 2:58 PM EDT documented as of this encounter Care Teams Sack Cleaning Hand Relationship Specialty Start Date End Date Aj Dumont MD [address] [place] [address] PCP - General Internal Medicine 09/12/14 [facility] 10/17/24 documented as of this encounter
--- OUTSIDE RECORDS SUMMARY | 2024-12-12 14:52 | XMS_ITS | Encounter Summary ---
Author Organization [employer] Address [address] [facility] [address] 7t [place] [address] Care Team Providers Care Associate Professor Of Geology Name Role Phone Aj Dumont MD Primary Care Provide r Reason for Visit * Reason Comments Med Refill Encounter Details Date Type Department Care Team ([facility] st Contact Info) Description 02/25/2024 Refill [facility] CH[facility] MED & PEDS [address] [place] [address] Aj Dumont MD [address] [place] [address] Chronic midline low back pain without sciatica [...] Info) Description 12/25/2024 1:00 PM EST Telemedicine [facility] CHC MED & PEDS [address] [place] [address] 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, RN [address] [place] [address] 01/23/2025 2:00 PM EDT Office Visit [facility] MEDICINE [address] [place] [address] Aj Dumont MD [address] [place] [address] documented as of this encounter Goals Goal [...] documented as of this encounter Care Teams Associate Professor Of Geology Relationship Specialty Start Date End Date Aj Dumont MD [address] [place] [address] PCP - General Internal Medicine 09/12/14 [facility] 10/17/24 documented as of this encounter
--- OUTSIDE RECORDS SUMMARY | 2024-12-12 14:52 | XMS_ITS | Encounter Summary ---
Author Organization [employer] Address 75 [facility] 7t [place] [address] Care Team Providers Care Collar Turner Operator Name Role Phone Aj Dumont MD Primary Care Provide r Reason for Visit * Reason Comments Med Refill Encounter Details Date Type Department Care Team ([facility] Contact Info) Description 11/26/2024 Refill [facility] MEDICINE [address] [place] [address] Aj Dumont MD [address] [place] [address] Social History Tobacco Use Types Packs/Day Years [...] Info) Description 12/25/2024 1:00 PM EST Telemedicine [facility] CHC MED & PEDS [address] [place] [address] 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, SHEREE [address] [place] [address] 01/23/2025 2:00 PM EDT Office Visit [facility] MEDICINE [address] [place] [address] Aj Dumont MD [address] [place] [address] documented as of this encounter Goals Goal Patient Goal Type Associated Problems Recent Progress Patient-Stated? Author Blood Pressure < 140/90 Blood Pressure Hypertension 127/74(2024 11:20 AM EST) No Nataanel Oquendo, [place] documented as of this encounter Visit Diagnoses Not on filedocumented in this encounter Additional Health Concerns Assessment Noted Time PHQ-9 Depression Total Score: 3 03/16/20 24 2:58 PM EDT documented as of this encounter Care Teams Collar Turner Operator Relationship Specialty Start Date End Date Aj Dumont MD [address] [place] [address] PCP - General Internal Medicine 09/12/14 [facility] 10/17/24 documented as of this encounter
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
--- OUTSIDE RECORDS SUMMARY | 2024-12-12 14:52 | XMS_ITS | Encounter Summary ---
Author Organization [employer] Address [address] [facility] [address] [place] [address] Care Team Providers Care Tutorial Laboratory Supervisor Name Role Phone Aj Dumont MD Primary Care Provide r Reason for Visit * Reason Onset Date Comments Triage 10/30/2022 Encounter Details Date Type Department Care Team ([facility] Contact Info) Description 10/30/2022 Telephone [facility] [address] [place] [address] Aj Dumont MD [address] [place] [address] Triage Social History Tobacco Use Types Packs/Day Years Used Date Smoking Tobacco: Never Assessed Depression Answer Date Recorded Patient Health Questionnaire-9 [...] Orientation Straight 09/14/2022 10 :17 AM EDT COVID-19 Exposure Response Date Recorded In the last 10 days, have yo u been in contact with someone who was confirmed or suspected to have Coronavirus/COVID-19? No / Unsure 04/05/2023 12:59 PM EDT documented as of this encounter Miscellaneous Notes * Telephone Encounter - Suzie Calderon LPN - 10/30/2022 10:02 AM EST TC placed Pt verified by last name and . Reports starting off yesterday with sinus congestion and headache. Today woke up with body aches and chills. Doesn't know nif he has a fever but feels as if he does. Denies taking in home covid test. States I would like an appt with pcp. Advised no available appt. And agreed to protocol to be seen in [facility]. Protocol Used: Common Cold (Adult) Protocol-Based Disposition: See in Office or Video Visit Today Video visit offer not recorded Positive Triage Question: * Sinus pain (not just congestion) and fever * All higher-acuity triage questions were negative Care Advice Discussed: * Reassurance and Education - Common Cold Symptoms * Humidifier * Contagiousness * Expected Course * Reasons To Call Back * Telephone Encounter - Kirsty Parada - 10/30/2022 8:56 AM EST Symptom: Sinus Symptoms Outcome: Schedule an urgent appointment (within 1 hour) or talk to a nurse or provider soon Reason: Severe headache ( pressure ) The caller accepted this outcome Please contact at [phone] \ documented in this encounter Plan of Treatment Upcoming Encounters Date Type Department Care Team ([facility] Contact Info) Description 12/25/2024 1:00 PM EST Telemedicine [facility] [address] [place] [address] 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 RN [address] [place] [address] 01/23/2025 2:00 PM EDT Office Visit [facility] [address] [place] [address] Aj Dumont MD [address] [place] [address] documented as of this encounter Goals Goal Patient Goal Type Associated Problems Recent Progress Patient-Stated? Author Blood Pressure < 140/90 Blood Pressure Hypertension 127/74(2024 11:20 AM EST) No Natanael Oquendo, PharmD documented as of this encounter Visit Diagnoses Not on filedocumented in this encounter Care Teams Tutorial Laboratory Supervisor Relationship Specialty Start Date End Date Aj Dumont MD [address] [place] [phone] PCP - General Internal Medicine 09/12/14 [facility] 10/17/24 documented as of this encounter
--- OUTSIDE RECORDS SUMMARY | 2024-12-12 14:52 | XMS_ITS | Encounter Summary ---
Author Organization [employer] Address [address] [place] [address] 7 [place] [address] Care Team Providers Care Investor Name Role Phone Aj Dumont MD Primary Care Provide r Reason for Visit * Reason Comments Med Refill Encounter Details Date Type Department Care Team ([facility] Contact Info) Description 08/16/2023 Refill [facility] MEDICINE 230 [place] [address] Aj Dumont MD 230 [place] [address] Reflux gastritis; Mixed hyperlipidemia Social History Tobacco Use Types Packs/Day Years [...] Upcoming Encounters Date Type Department Care Team ([facility] Contact Info) Description 12/25/2024 1:00 PM EST Telemedicine [facility] CHC MED & PEDS 505 [place] [address] 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 RN 505 [place] [address] 01/23/2025 2:00 PM EDT Office Visit [facility]INE [facility] [place], [place] [phone] Aj Dumont MD 230 [place] [address] documented as of this encounter Goals Goal Patient Goal Type Associated Problems Recent Progress Patient-Stated? Author Blood Pressure < 140/90 Blood Pressure Hypertension 127/74(2024 11:20 AM EST) No Natanael Oquendo, PharmD documented as of this encounter Visit Diagnoses Diagnosis Reflux gastritis Other specified gastritis without mention of hemorrhage Mixed hyperlipidemia documented in this encounter Additional Health Concerns Assessment Noted Time PHQ-9 Depression Total Score: 6 01/29/20 23 2:25 PM EDT documented as of this encounter Care Teams Investor Relationship Specialty Start Date End Date Aj Dumont MD Jessie [place], [place] [phone] PCP - General Internal Medicine 09/12/14 [facility] 10/17/24 documented as of this encounter
--- OUTSIDE RECORDS SUMMARY | 2024-12-12 14:52 | XMS_ITS | Encounter Summary ---
Author Organization [employer] Address [address] [facility] 7t [place] [address] Care Team Providers Care Sap Trainer Name Role Phone Aj Dumont MD Primary Care Provide r Reason for Visit * Reason Onset Date Comments Referral 12/01/2023 Encounter Details Date Type Department Care Team ([facility] Contact Info) Description 12/01/2023 Telephone [facility] MEDICINE 230 [place] [address] Aj Dumont MD 230 [place] [address] Referral Social History Tobacco Use Types Packs/Day Years [...] encounter Miscellaneous Notes * Telephone Encounter - Farideh Casanova - 12/01/2023 9:31 AM EST Tc from pt requesting a new order for Radiology . States was unable to do it at [facility] due to the machine being small . Was advice to get a referral to [facility] . Please call pt to clarify at phone #[phone]. documented in this encounter Plan of Treatment Upcoming Encounters Date Type Department Care Team (Late st Contact Info) Description 12/25/2024 1:00 PM EST Telemedicine [facility] CHC MED & PEDS 505 [place] [address] 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, SHEREE 505 [place] [address] 01/23/2025 2:00 PM EDT Office Visit [facility] MEDICINE 230 [place] [address] Aj Dumont MD 230 [place] [address] documented as of this encounter Goals Goal [...] documented as of this encounter Care Teams Sap Trainer Relationship Specialty Start Date End Date Aj Dumont MD 230 [place] [address] PCP - General Internal Medicine 09/12/14 [facility] 10/17/24 documented as of this encounter
--- OUTSIDE RECORDS SUMMARY | 2024-12-12 14:52 | XMS_ITS | Encounter Summary ---
Author Organization [employer] Address [address] [place] [address] 7 [place] [address] Care Team Providers Care Toll Bridge Attendant Name Role Phone Aj Dumont MD Primary Care Provide r Reason for Visit * Reason Comments Med Refill Encounter Details Date Type Department Care Team (Late Contact Info) Description 08/14/2023 Refill [facility] MEDICINE 230 [place] [address] Aj Dumont MD 230 [place] [address] Type 2 diabetes mellitus without complication, with long-term current use of insulin ([facility]) Social History Tobacco Use Types [...] Encounters Date Type Department Care Team (Late Contact Info) Description 12/25/2024 1:00 PM EST Telemedicine [facility] CHC MED & PEDS 505 [place] [address] 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 RN 505 [place] [address] 01/23/2025 2:00 PM EDT Office Visit [facility] MEDICINE 230 [place] [address] Aj Dumont MD 230 [place] [address] documented as of this encounter Goals Goal Patient Goal Type Associated Problems Recent Progress Patient-Stated? Author Blood Pressure < 140/90 Blood Pressure Hypertension 127/74(2024 11:20 AM EST) No Natanael Oquendo, DorcasD documented as of this encounter Visit Diagnoses Diagnosis Type 2 diabetes mellitus without complication, with long-term current use of insulin ([facility]) documented in this encounter Additional Health Concerns Assessment Noted Time PHQ-9 Depression Total Score: 6 01/29/20 23 2:25 PM EDT documented as of this encounter Care Teams Toll Bridge Attendant Relationship Specialty Start Date End Date Aj Dumont MD [address] [place] [address] PCP - General Internal Medicine 09/12/14 [facility] 10/17/24 documented as of this encounter
--- OUTSIDE RECORDS SUMMARY | 2024-12-12 14:52 | XMS_ITS | Encounter Summary ---
Author Organization [employer] Address [address] 7t [place] [address] Care Team Providers Care Lead Pastor Name Role Phone Aj Dumont MD Primary Care Provide r Reason for Visit * Reason Comments Med Refill Encounter Details Date Type Department Care Team ([facility] st Contact Info) Description 10/25/[address] [facility] CHC MED & PEDS [address] [place] [address] Aj Dumont MD 230 [place] [address] Chronic midline low back pain without sciatica [...] 1:00 PM EST Telemedicine [facility] CHC MED & PEDS 505 [place] [address] 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, RN 505 [place] [address] 01/23/2025 2:00 PM EDT Office Visit [facility] MEDICINE 230 [place] [address] Aj Dumont MD 230 [place] [address] documented as of this encounter Goals Goal [...] documented as of this encounter Care Teams Lead Pastor Relationship Specialty Start Date End Date Aj Dumont MD 230 [place] [address] PCP - General Internal Medicine 09/12/14 [facility] 10/17/24 documented as of this encounter
--- OUTSIDE RECORDS SUMMARY | 2024-12-12 14:53 | XMS_ITS | Encounter Summary ---
Author Organization [employer] Address [address] 7t [place] [address] Care Team Providers Care Go Go Dancer Name Role Phone jA Dumont MD Primary Care Provide r Encounter Details Date Type Department Care Team (Latest Contact Info) Description 11/16/2024 Travel Social History Tobacco Use Types Packs/Day [...] Info) Description 12/25/2024 1:00 PM EST Telemedicine [facility] CHC MED & PEDS 505 [place], [place] [phone] 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, RN 505 [place] [address] 01/23/2025 2:00 PM EDT Office Visit [facility] MEDICINE 230 [place] [address] Aj Dumont MD 230 [place] [address] documented as of this encounter Goals Goal [...] documented as of this encounter Care Teams Go Go Dancer Relationship Specialty Start Date End Date Aj Dumont MD 230 [place], [place] [phone] PCP - General Internal Medicine 09/12/14 [facility] 10/17/24 documented as of this encounter
--- OUTSIDE RECORDS SUMMARY | 2024-12-12 14:53 | XMS_ITS | Encounter Summary ---
Author Organization [employer] Address [address] 7t [place] [address] Care Team Providers Care Insurance Attorney Name Role Phone Aj Dumont MD Primary Care Provide r Reason for Visit * Reason Comments Med Refill Encounter Details Date Type Department Care Team ([facility] st Contact Info) Description 06/28/[address] [facility] CHC MED & PEDS [address] [place] [address] Aj Dumont MD 230 [place] [address] Chronic midline low back pain without sciatica [...] Info) Description 12/25/2024 1:00 PM EST Telemedicine [facility] CHC MED & PEDS 505 [place] [address] 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, RN 505 [place] [address] 01/23/2025 2:00 PM EDT Office Visit [facility] MEDICINE 230 [place] [address] Aj Dumont MD [address] [place] [address] documented as of this encounter Goals Goal [...] documented as of this encounter Care Teams Insurance Attorney Relationship Specialty Start Date End Date Aj Dumont MD [address] [place] [address] PCP - General Internal Medicine 09/12/14 [facility] 10/17/24 documented as of this encounter
--- OUTSIDE RECORDS SUMMARY | 2024-12-12 14:53 | XMS_ITS | Encounter Summary ---
Author Organization [employer] Address [address] [place] [address] 7 [place] [address] Care Team Providers Care Unit Aide Tech Name Role Phone Aj Dumont MD Primary Care Provide r Reason for Visit * Reason Comments Med Refill Encounter Details Date Type Department Care Team ([facility] Contact Info) Description 03/29/2023 Refill [facility] MED & PEDS 505 [place], [place] [phone] Aj Dumont MD 230 [place] [address] Chronic midline low back pain without sciatica Social History Tobacco Use Types Packs/Day Years Used Date Smoking Tobacco: Some Days Cigarettes Passive Smoke Exposure: Never Smokeless Tobacco: Never Alcohol Use Standard Drinks/Week [...] Upcoming Encounters Date Type Department Care Team ([facility] Contact Info) Description 12/25/2024 1:00 PM EST Telemedicine [facility] CHC MED & PEDS 505 [place] [address] 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, SHEREE 505 [place] [address] 01/23/2025 2:00 PM EDT Office Visit [facility] MEDICINE 230 [place] [address] Aj Dumont MD 230 [place] [address] documented as of this encounter Visit Diagnoses Diagnosis Chronic midline low back pain without sciatica documented in this encounter Additional Health Concerns Assessment Noted Time PHQ-9 Depression Total Score: 6 01/29/20 23 2:25 PM EDT documented as of this encounter Care Teams Unit Aide Tech Relationship Specialty Start Date End Date Aj Dumont MD [address] [place] [address] PCP - General Internal Medicine 09/12/14 [facility] [place] 10/17/24 documented as of this encounter
--- OUTSIDE RECORDS SUMMARY | 2024-12-12 14:53 | XMS_ITS | Patient Health Record ---
Author Organization [facility] Address [address] [place] [address] Care Team Providers Care Aerologist Name Role Phone YUNIEL BAEZA Primary Care Provider U Papi Mckenzie Unavailable [phone] ALLERGIES No Known Allergies REASON FOR REFERRAL No Information MEDICATIONS Medication SIG (Take, Route, Frequency, Duration) Notes Start Date End Date Status Terazosin HCl 5 MG TAKE 1 CAPSULE BY MO UTH AT BEDTIME Diagnosis Unavailable Oral for 90 Active SM Tussin Cough/Chest Congest 20-200 MG/10ML TAKE 10 ML BY MOUTH EVERY 4 HOURS NEEDED Oral for 3 Active Metoprolol Succinate ER 50 MG TAKE 1 TABLET BY MOUTH EVERY EVENING Oral for 90 Active Terbinafine HCl 250 MG TAKE 1 TABLET BY MOUTH EVERY DAY Oral for 30 Active Omeprazole 20 MG TAKE 1 CAPSULE BY MO UTH EVERY MORNING Oral for 90 Active Cephalexin 500 MG TAKE 1 CAPSULE BY MO UTH EVERY 8 HOURS UNTIL FINISHED Oral for 7 Active Aspirin Low Dose 81 MG TAKE 1 TABLET BY MOUTH AT BEDTIME Oral for 30 Active Acetaminophen Extra Strength 500 MG TAKE 2 TABLETS BY MOUTH EVERY 8 HOURS NEEDED Oral for 5 Active Lisinopril 40 MG TAKE 1 TABLET BY CEZAR TH EVERY MORNING Oral for 90 Active Naloxone HCl 4 MG/0.1ML FOR SUSPECTED OP IOID OVERDOSE. SPRAY 0.1mL IN ONE NOSTRIL. REPEAT IN ALTERNATE NOSTRIL 2-3 MINUTES IF NEEDED. SEEK MEDICAL ATTENTION IMMEDIATELY EVEN IF PATIENT RESPONDS. Nasal for 1 Active Morphine Sulfate ER 30 MG Oral for 30 Active Atorvastatin Calcium 80 MG TAKE 1 TABLET BY MOUTH AT BEDTIME Oral for 90 Active oxyCODONE-Acetaminophen 5-325 MG TAKE 1 TABLET BY MOUTH EVERY 8 HOURS NEEDED FOR SEVERE PAIN Diagnosis Unavailable Oral for 28 Active metFORMIN HCl 1000 MG TAKE 1 TABLET BY M OUTH TWICE DAILY IN THE MORNING AND IN THE EVENING Oral for 30 Active [id number]-[id number]-[id number] Ethyl Esters 1 GM TAKE 1 CAPSULE BY MOUTH THREE TIMES DAILY IN THE MORNING, AT NOON, AND IN THE EVENING Oral for 30 Active MiraLax 17 GM 1 packet mixed with 8 ounces of fluid Orally Once a day for 30 day(s) Active Brilinta 90 MG TAKE 1 TABLET BY CEZAR TH TWICE DAILY IN THE MORNING AND IN THE EVENING Oral for 30 Active amLODIPine Besylate 5 MG TAKE 1 TABLET B Y MOUTH EVERY MORNING Oral for 90 Active Lantus SoloStar 100 UNIT/ML INJECT 50 UNITS SUBCUTANEOUSLY ONCE DAILY Subcutaneous for 29 Active IMMUNIZATIONS Vaccine Route Administration Date Status Comme nts Influenza Unknown 12/09/2022 Refused SOCIAL HISTORY Tobacco Use: Social History Observation Description Date Details (start date - stop date) Current Smoker NA - NA Sex Assigned At : Social History Observation Description Sex Assigned At Unknown Tobacco Use/Smoking Question Answer Notes Patient is a current smoker How often do you smoke cigarettes? some days, bu t not every day How many cigarettes a day do you smoke? 5 or les s Alcohol Screen Question Answer Notes Did you have a drink containing alcohol in the p ast year? No Points 0 Interpretation Negative PROBLEMS Problem Type ICD Code Onset Dates Problem Status W/U Status Risk SNOMED Code Notes Problem Colon cancer screening (Z12.11) Active confirmed 879245710 Problem Preprocedural examination (Z01.818) Active confirmed [id number] PLAN OF TREATMENT No Information Insurance Providers Payer Name Payer Address Payer Phone Subscriber Number Group Number Insured Name Patient Relationship to Insured Coverage Start Date Coverage End Date [facility] [address] [address] [place] [address] [id number] [employer] Self - patient is the insured MEDICAL (GENERAL) HISTORY Medical History History ICD Code Hypertension Depression Peripheral neuropathy IDDM Osteoarthritis Hyperlipidemia [place]/CAD-s/p coronary artery stent placeme nt --Dr. Lars [place],acute Cervical radiculopathy Negative colonoscopies inn and [address] Fleming--large internal and external hemorrhoids COVID Denies CVA,renal disease Asthma Surgical History Surgery Date(Month/Year) Left knee surgery Right hand BPH
--- OUTSIDE RECORDS SUMMARY | 2024-12-12 14:53 | XMS_ITS | Encounter Summary ---
Author Organization [employer] Address [address] [place] [address] 7t [place] [address] Care Team Providers Care Hangar Attendant Name Role Phone Aj Dumont MD Primary Care Provide r Encounter Details Date Type Department Care Team (Late Contact Info) Description 11/24/2022 Orders Only [facility] MEDICINE 230 [place] [address] Shae Sofia LPN Social History Tobacco Use Types Packs/Day Years Used Date Smoking Tobacco: Some Days Cigarettes Passive Smoke Exposure: Never Smokeless Tobacco: Never Alcohol Use Standard Drinks/Week Comments Not Currently 0 (1 standard drink = 0.6 oz pur e alcohol) Sex and Gender Information Value Date Recorded [...] suspected to have Coronavirus/COVID-19? No / Unsure 11/24/2022 1:18 PM EST documented as of this encounter Plan of Treatment Upcoming Encounters Date Type Department Care Team (Late st Contact Info) Description 12/25/2024 1:00 PM EST Telemedicine [facility] CHC MED & PEDS 505 [place] [address] 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, RN 505 [place] [address] 01/23/2025 2:00 PM EDT Office Visit [facility] MEDICINE 230 [facility] [place] [address] Aj Dumont MD 230 [place] [phone] documented as of this encounter Visit Diagnoses Not on filedocumented in this encounter Care Teams Hangar Attendant Relationship Specialty Start Date End Date Aj Dumont MD [address] [place] [phone] PCP - General Internal Medicine 09/12/14 [facility] 10/17/24 documented as of this encounter
--- OUTSIDE RECORDS SUMMARY | 2024-12-12 14:53 | XMS_ITS | Encounter Summary ---
Author Organization [employer] Address [address] [facility] 7t [place] [address] Care Team Providers Care Laborer Hoisting Name Role Phone Aj Dumont MD Primary Care Provide r Reason for Visit * Reason Comments Pre-visit Planning SDOH screening was c ompleted on 03/16/24 Encounter Details Date Type Department Care Team ([facility] st Contact Info) Description 11/17/2024 Patient Outreach [facility] MEDICINE 230 [place] [address] Aj Dumont MD 230 [place] [address] Pre-visit Planning (SDOH screening was completed on 03/16/24) Social History Tobacco Use Types Packs/Day Years [...] AM EDT documented as of this encounter Progress Notes * Isi Alamo - 11/17/2024 11:02 AM EST CC Isi Adams placed successful outbound call to patient for pre-visit planning. Patient name and confirmed. Patient confirms appt date and time, and has transportation arrangements. Biggest concern for appointment at this time is yes but will mention it to PCP in person. Patient advised to bring to appointment a photo id and insurance card. Appropriate screenings completed in anticipation of appointment. documented in this encounter Plan of Treatment Upcoming Encounters Date Type Department Care Team ([facility] st Contact Info) Description 12/25/2024 1:00 PM EST Telemedicine [facility] CHC MED & PEDS 505 [place] [address] 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 RN 505 [place] [address] 01/23/2025 2:00 PM EDT Office Visit [facility] MEDICINE 230 [place] [address] Aj Dumont MD 230 [place] [address] documented as of this encounter Goals Goal [...] documented as of this encounter Care Teams Laborer Hoisting Relationship Specialty Start Date End Date Aj Dumont MD 230 [place] [address] PCP - General Internal Medicine 09/12/14 [facility] 10/17/24 documented as of this encounter
--- OUTSIDE RECORDS SUMMARY | 2024-12-12 14:53 | XMS_ITS | Encounter Summary ---
Author Organization [employer] Address [address] 7t [place] [address] Care Team Providers Care Direct Casting Operator Name Role Phone Aj Dumont MD Primary Care Provide r Reason for Visit * Reason Comments Med Refill Encounter Details Date Type Department Care Team ([facility] Contact Info) Description 11/14/2024 Refill [facility] CHC MED & PEDS [address] [place] [address] Aj Dumont MD 230 [place] [address] Chronic midline low back pain without sciatica [...] Info) Description 12/25/2024 1:00 PM EST Telemedicine [facility] CHC MED & PEDS 505 [place] [address] 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, RN 505 [place] [address] 01/23/2025 2:00 PM EDT Office Visit [facility] MEDICINE 230 [place] [address] Aj Dumont MD 230 [place] [address] documented as of this encounter Goals Goal [...] documented as of this encounter Care Teams Direct Casting Operator Relationship Specialty Start Date End Date Aj Dumont MD 230 [place] [address] PCP - General Internal Medicine 09/12/14 [facility] 10/17/24 documented as of this encounter
--- OUTSIDE RECORDS SUMMARY | 2024-12-12 14:53 | XMS_ITS | Encounter Summary ---
Author Organization [employer] Address [address] [place] [address] 7t [place] [address] Care Team Providers Care Design Assembler Name Role Phone Aj Dumont MD Primary Care Provide r Encounter Details Date Type Department Care Team (Late Contact Info) Description 01/27/2023 Orders Only [facility] CHC MED & PEDS 505 [place] [address] Jennifer Knott LPN Social History Tobacco Use Types Packs/Day [...] suspected to have Coronavirus/COVID-19? No / Unsure 01/28/2023 2:10 PM EDT documented as of this encounter Plan of Treatment Upcoming Encounters Date Type Department Care Team ([facility] Contact Info) Description 12/25/2024 1:00 PM EST Telemedicine [facility] CHC MED & PEDS 505 [place] [address] 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, RN 505 [place] [address] 01/23/2025 2:00 PM EDT Office Visit [facility] MEDICINE [address] [place] [address] Aj Dumont MD [address] [place] [address] documented as of this encounter Visit Diagnoses Not on filedocumented in this encounter Care Teams Design Assembler Relationship Specialty Start Date End Date Aj Dumont MD [address] [place] [phone] PCP - General Internal Medicine 09/12/14 [facility] 10/17/24 documented as of this encounter
--- OUTSIDE RECORDS SUMMARY | 2024-12-12 14:53 | XMS_ITS | Encounter Summary ---
Author Organization [employer] Address [address] [facility] 7t [place] [address] Care Team Providers Care Cut Off Saw Operator Metal Name Role Phone Aj Dumont MD Primary Care Provide r Reason for Visit * Reason Comments Med Refill Encounter Details Date Type Department Care Team ([facility] Contact Info) Description 12/17/2022 Refill [facility] MEDICINE 230 [place] [address] Aj Dumont MD 230 [place] [address] Chronic midline low back pain without sciatica [...] suspected to have Coronavirus/COVID-19? No / Unsure 12/16/2022 1:36 PM EST documented as of this encounter Plan of Treatment Upcoming Encounters Date Type Department Care Team ([facility] Contact Info) Description 12/25/2024 1:00 PM EST Telemedicine [facility] CHC MED & PEDS 505 [place], [place] [phone] 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, RN 505 [place] [address] 01/23/2025 2:00 PM EDT Office Visit [facility] MEDICINE 230 [place] [address] Aj Dumont MD [address] [place] [address] documented as of this encounter Visit Diagnoses Diagnosis Chronic midline low back pain without sciatica documented in this encounter Care Teams Cut Off Saw Operator Metal Relationship Specialty Start Date End Date Aj Dumont MD 230 [place] [address] PCP - General Internal Medicine 09/12/14 [facility] 10/17/24 documented as of this encounter
--- OUTSIDE RECORDS SUMMARY | 2024-12-12 14:53 | XMS_ITS | Encounter Summary ---
Author Organization [employer] Address [address] 7t [place] [address] Care Team Providers Care Bankruptcy Processor Name Role Phone Aj Dumont MD Primary Care Provide r Reason for Visit * Reason Comments Med Refill Encounter Details Date Type Department Care Team ([facility] st Contact Info) Description 06/28/2024 Refill [facility] CHC MED & PEDS [address] [place] [address] Aj Dumont MD 230 [place] [address] Chronic midline low back pain without sciatica [...] Info) Description 12/25/2024 1:00 PM EST Telemedicine [facility] CHC MED & PEDS 505 [place] [address] 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, RN 505 [place] [address] 01/23/2025 2:00 PM EDT Office Visit [facility] MEDICINE 230 [place] [address] Aj Dumont MD [address] [place] [address] documented as of this encounter Goals Goal [...] documented as of this encounter Care Teams Bankruptcy Processor Relationship Specialty Start Date End Date Aj Dumont MD [address] [place] [address] PCP - General Internal Medicine 09/12/14 [facility] 10/17/24 documented as of this encounter
--- OUTSIDE RECORDS SUMMARY | 2024-12-12 14:53 | XMS_ITS | Encounter Summary ---
Author Organization [employer] Address [address] [facility] 7t [place] [address] Care Team Providers Care Chiropractic Care Name Role Phone Aj Dumont MD Primary Care Provide r Reason for Visit * Reason Onset Date Comments Error (VOID this visit) 11/20/2024 Encounter Details Date Type Department Care Team ([facility] Contact Info) Description 11/20/2024 Telephone [facility] [address] [place] [address] Aj Dumont MD 230 [place] [address] Error (VOID this visit) Social History Tobacco Use Types Packs/Day Years [...] Info) Description 12/25/2024 1:00 PM EST Telemedicine [facility] MED & PEDS [address] [place] [address] 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, SHEREE 505 [place] [address] 01/23/2025 2:00 PM EDT Office Visit [facility] 230 [place] [address] Aj Dumont MD [address] [place] [address] documented as of this encounter Goals Goal [...] documented as of this encounter Care Teams Chiropractic Care Relationship Specialty Start Date End Date Aj Dumont MD 230 [place] [address] PCP - General Internal Medicine 09/12/14 [facility] 10/17/24 documented as of this encounter
--- OUTSIDE RECORDS SUMMARY | 2024-12-12 14:53 | XMS_ITS | Encounter Summary ---
Author Organization [employer] Address [address] [facility] [address] 7t [place] [address] Care Team Providers Care Kier Hand Name Role Phone Aj Dumont MD Primary Care Provide r Encounter Details Date Type Department Care Team ([facility] st Contact Info) Description 11/13/2024 Telephone [facility] [address] [place] [address] Aj Dumont MD [address] [place] [address] Social History Tobacco Use Types Packs/Day Years [...] Info) Description 12/25/2024 1:00 PM EST Telemedicine [facility] & PEDS 505 [place] [address] 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, RN 505 [place] [address] 01/23/2025 2:00 PM EDT Office Visit [facility] 230 [place] [address] Aj Dumont MD [address] [place] [address] documented as of this encounter Goals Goal [...] documented as of this encounter Care Teams Kier Hand Relationship Specialty Start Date End Date Aj Dumont MD [address] [place] [address] PCP - General Internal Medicine 09/12/14 [facility] 10/17/24 documented as of this encounter
--- OUTSIDE RECORDS SUMMARY | 2024-12-12 14:53 | XMS_ITS | Encounter Summary ---
Author Organization [employer] Address [address] [facility] 7t [place] [address] Care Team Providers Care Metal Buggy Operator Name Role Phone Aj Dumont MD Primary Care Provide r Reason for Visit * Reason Comments controlled substance treatment Encounter Details Date Type Department Care Team (Latest Contact Info) Description 11/16/2024 2:30 PM EST Clinical Support [facility] MED & PEDS 505 [place], [place] [phone] 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, RN 505 [place] [address] Chronic left-sided low back pain with left-sided sciatica Social History Tobacco Use Types Packs/Day [...] as of this encounter Progress Notes * 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 RN - 11/16/2024 2:30 PM EST S: PLANT TECHNICIAN/CONTROL ROOM OPERATOR NV. Prescribed Morphine Sulfate ER 30 mg PO BID PRN & Percocet 5mg-325mg PO q8h PRN. States has been taking as prescribed. Has been without medications (refill was sent 11/14 after pharmacy closed). Pt reports smoking a few cigarettes daily but does not want any aids at this time as smoking helps with his stress. Pt reports smoking marijuana, denies use of illicit substances. Rare ETOH uses, pt educated of the risks associated with the combination of ETOH and opioids, verbalized understanding. Currently rates pain a 9/10. Pt states medication is 40% effective at alleviating pain. Current pain site is neck, L side lower back. No questions/ concerns at this time. O: PLANT TECHNICIAN/CONTROL ROOM OPERATOR Tier 4. NURSE RECRUITER verified today. Both scripts last filled on 10/17/24. Pill count not performed aspatient does not have any pills left, 0 expected. Medications are not being overused. Last PCP visit was 08/08/24. Utox performed, positive for OXY, THC. .Fentanyl testing: negative Lot# [id number] Exp: 10-29-25 .BPI updated today. Pain severity score of (9), activity interference score of (8.5). Previous BPI completed (04/04/24) with pain severity score of (7), activity interference score of (7). A: PLANT TECHNICIAN/CONTROL ROOM OPERATOR Contract Revisit: Opioid dependence related to chronic pain. P: Patient to continue taking medication only as prescribed; Next PLANT TECHNICIAN/CONTROL ROOM OPERATOR RV appointment scheduled for 12/25/24 at 1pm, f/u with PCP 11/28/24. F/U sooner PRN. Patient verbalized understanding and agreed toplan. documented in this encounter Plan of Treatment Upcoming Encounters Date Type Department Care Team ([facility] st Contact Info) Description 12/25/2024 1:00 PM EST Telemedicine [facility] MED & PEDS [address] [place], [place] [phone] 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 RN 505 [place], [place] [phone] 01/23/2025 2:00 PM EDT Office Visit [facility] 230 [place], [place] [phone] Aj Dumont MD 230 [place], [place] [phone] documented as of this encounter Goals Goal Patient Goal Type Associated Problems Recent Progress Patient-Stated? Author Blood Pressure < 140/90 Blood Pressure Hypertension 127/74(2024 11:20 AM EST) No Natanael Oquendo, PharmD documented as of this encounter Procedures Procedure Name Priority Date/Time Associated Diagnosis Comments POCT PHAM-14 URINE DRUG SCREEN Routine 11/16/2024 2:17 PM EST Chronic left-sided low back pain with left-sided sciatica documented in this encounter Results * POCT PHAM-14 Urine Drug Screen (11/16/2024 2:17 PM EST) THC Positive Oxycodone Screen, Urine Positive Urine Urine specimen obtained by clean catch procedure / Unknown 11/16/2024 2:17 PM EST Narrative 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 RN - 11/16/2024 2:17 PM EST Lot# [id number] Exp: 10-21-25 Aj Grande MD POINT OF CARE TEST EN TER/EDIT ORDERABLES Final Result documented in this encounter Visit Diagnoses Diagnosis Chronic left-sided low back pain with left-sided sciatica documented in this encounter Additional Health Concerns Assessment Noted Time PHQ-9 Depression Total Score: 3 03/16/20 24 2:58 PM EDT documented as of this encounter Care Teams Metal Buggy Operator Relationship Specialty Start Date End Date Aj Dumont MD [address] [place] [id number] PCP - General Internal Medicine 09/12/14 [facility] 10/17/24 documented as of this encounter
--- OUTSIDE RECORDS SUMMARY | 2024-12-12 14:53 | XMS_ITS | Encounter Summary ---
Author Organization [employer] Address [address] [facility] 7t [place] [address] Care Team Providers Care Systems Architecture Analyst Name Role Phone Aj Dumont MD Primary Care Provide r Reason for Visit * Reason Onset Date Comments Med Refill 03/31/2024 Encounter Details Date Type Department Care Team ([facility] Contact Info) Description 03/31/2024 Telephone [facility] [address] [place] [address] Aj Dumont MD 230 [place] [address] Med Refill Social History Tobacco Use Types Packs/Day Years Used Date Smoking Tobacco: Some Days Cigarettes Passive Smoke Exposure: Current Smokeless Tobacco: Never Comments:2-3 cigarette daily Alcohol Use Standard Drinks/Week Comments Not Currently [...] * Telephone Encounter - Johnny Grande - 03/31/2024 11:40 AM EDT TC from pt requesting medication refill. Medications needing refill : morphine CR (MS Contin) 30 MG 12 hr tablet and oxyCODONE-acetaminophen(Percocet) 5-325 MG tablet To be sent to: [facility] [place], [place] - [address] [place] [address] documented in this encounter Plan of Treatment Upcoming Encounters Date Type Department Care Team ([facility] st Contact Info) Description 12/25/2024 1:00 PM EST Telemedicine [facility] PEDS [address] [place] [address] 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, SHEREE 505 [place] [address] 01/23/2025 2:00 PM EDT Office Visit [facility] [address] [place], [place] [phone] Aj Dumont MD 230 [place] [address] documented as of this encounter Goals Goal [...] documented as of this encounter Care Teams Systems Architecture Analyst Relationship Specialty Start Date End Date Aj Dumont MD [address] [place] [address] PCP - General Internal Medicine 09/12/14 [facility] 10/17/24 documented as of this encounter
--- OUTSIDE RECORDS SUMMARY | 2024-12-12 14:53 | XMS_ITS | Encounter Summary ---
Author Organization [employer] Address [address] [facility] 7t [place] [address] Care Team Providers Care Flat Folder Name Role Phone Aj Dumont MD Primary Care Provide r Reason for Visit * Reason Onset Date Comments Appointment Request 06/21/2024 Encounter Details Date Type Department Care Team ([facility] Contact Info) Description 06/21/[address] [facility] [address] [place] [address] Aj Dumont MD 230 [place] [address] Appointment Request Social History Tobacco Use Types [...] * Telephone Encounter - Johnny Grande - 06/21/2024 9:36 AM EDT Tc from patient calling to reschedule missed appt from 06/19 documented in this encounter Plan of Treatment Upcoming Encounters Date Type Department Care Team (Late st Contact Info) Description 12/25/2024 1:[address] [facility] MED & PEDS 505 [place] [address] 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, RN [address] [place] [address] 01/23/2025 2:00 PM EDT Office Visit [facility] [address] [place] [address] Aj Dumont MD 230 [place] [address] documented as of this encounter Goals Goal [...] documented as of this encounter Care Teams Flat Folder Relationship Specialty Start Date End Date Aj Dumont MD [address] [place] [address] PCP - General Internal Medicine 09/12/14 [facility] 10/17/24 documented as of this encounter
--- OUTSIDE RECORDS SUMMARY | 2024-12-12 14:53 | XMS_ITS | Encounter Summary ---
Author Organization [facility] [employer] [facility] [employer] Address [address] [facility] 7t [place] [address] Care Team Providers Care Water Resource Project Manager Name Role Phone Aj Dumont MD Primary Care Provide r Reason for Visit * Reason Comments Med Refill Encounter Details Date Type Department Care Team ([facility] Contact Info) Description 12/17/2022 Refill [facility] [address] [place] [address] Aj Dumont MD [address] [place] [address] Chronic midline low back pain without sciatica [...] Upcoming Encounters Date Type Department Care Team ([facility] Contact Info) Description 12/25/2024 1:00 PM EST Telemedicine [facility] MED & PEDS 505 [place], [place] [phone] 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, RN 505 [place] [address] 01/23/2025 2:00 PM EDT Office Visit [facility] [address] [place] [address] Aj Dumont MD [address] [place] [address] documented as of this encounter Visit Diagnoses Diagnosis Chronic midline low back pain without sciatica documented in this encounter Care Teams Water Resource Project Manager Relationship Specialty Start Date End Date Aj Dumont MD [address] [place] [address] PCP - General Internal Medicine 09/12/14 [facility] 10/17/24 documented as of this encounter
== END 2024-12-12 15:06 | disposition home or self-care (01) ==
PROVIDERS: PCP Internal Medicine; Visit Provider Urology
DX: R35.1 Nocturia (principal)
CPT/HCPCS: 99213

== ENCOUNTER → 2024-12-12 13:57 | Outpatient (BNVA) | payer MEDICARE, SELFPAY | PROVIDERS: PCP Internal Medicine; Visit Provider Urology | DX: E11.69 Type 2 diabetes mellitus with other specified complication (principal); N52.1 Erectile dysfunction due to diseases classified elsewhere; R35.1 Nocturia; R39.12 Poor urinary stream; R39.15 Urgency of urination; R33.9 Retention of urine, unspecified | CPT/HCPCS: 51798; 99212 ==

== ENCOUNTER 2025-01-02 14:00 | Outpatient (RCR) | payer MEDICARE, SELFPAY ==
[2024-11-27 13:58] VITALS: BP 111/72; PULSE 77; RESP 16; TEMP 36.6; O2SAT 96
[2024-11-27] MEDS: Iron Sucrose Complex 200 MG/10 ML VIAL IVPUSH (14:04)
[2024-12-07 13:04] VITALS: BP 129/77; PULSE 77; RESP 16; TEMP 36.6; O2SAT 100
[2024-12-07] MEDS: Iron Sucrose Complex 200 MG/10 ML VIAL IVPUSH (13:17)
[2024-12-11 13:36] VITALS: BP 123/71; PULSE 78; RESP 20; TEMP 36.6; O2SAT 100
[2024-12-11] MEDS: Iron Sucrose Complex 200 MG/10 ML VIAL IVPUSH (13:41)
[2024-12-18 13:53] VITALS: BP 101/71; PULSE 84; RESP 18; TEMP 36.3; O2SAT 97
[2024-12-18] MEDS: Iron Sucrose Complex 200 MG/10 ML VIAL IVPUSH (13:57)
[2024-12-25 15:33] VITALS: BP 121/72; PULSE 74; RESP 16; TEMP 36.6; O2SAT 99
[2024-12-25] MEDS: Iron Sucrose Complex 200 MG/10 ML VIAL IVPUSH (15:35)
[2025-01-02 10:52] VITALS: BP 124/70; PULSE 66; RESP 16; TEMP 37.2; O2SAT 100
[2025-01-02] MEDS: Iron Sucrose Complex 200 MG/10 ML VIAL IVPUSH (10:57)
== END 2025-01-02 14:08 | disposition home or self-care (01) ==
LOC: HO.INF 14:00
PROVIDERS: Visit Provider Internal Medicine
DX: D64.9 Anemia, unspecified (principal)
CPT/HCPCS: 96374; J1756

== ENCOUNTER 2025-02-06 12:09 | Outpatient (REF) | payer MEDICARE, SELFPAY ==
[2025-02-06 14:55] LABS: Anion Gap 12 (12-20); Blood Urea Nitrogen 12 mg/dL (9-16); Calcium 9.1 mg/dL (8.4-10.2); Carbon Dioxide 25 mmol/L (22-29); Chloride 109 mmol/L (96-108); Cholesterol 93 mg/dL (<200); Estimated Glomerular Filt Rate > 60; Glucose Random 148 mg/dL (60-115); HDL Cholesterol 32 mg/dL (>40); LDL Cholesterol Calculated 46 mg/dL (<100); Potassium 3.9 mmol/L (3.3-5.1); Sodium 142 mmol/L (135-145); Triglycerides 78 mg/dL (<150)
--- OUTSIDE RECORDS SUMMARY | 2025-02-06 14:56 | XMS_ITS | Encounter Summary ---
Author Organization [employer] Address [address] [facility] [address] 7t [place] [address] Care Team Providers Care Aligner Barrel And Receiver Name Role Phone Aj Dumont MD Primary Care Provide r Reason for Visit * Reason Comments Med Refill Encounter Details Date Type Department Care Team ([facility] st Contact Info) Description 02/25/2024 Refill [facility] MED & PEDS [address] [place] [address] Aj Dumont MD 230 [place] [address] Chronic midline low back pain without sciatica [...] Care Team (Late st Contact Info) Description 02/20/2025 3:30 PM EDT Office Visit [facility] ADULT DENTAL [address] [place] [address] Rober Lockett DDS [address] [place] [address] 03/06/2025 11:15 AM EDT Office Visit [facility] [address] [place] [address] Aj Dumont MD [address] [place] [address] 03/15/2025 1:45 PM EDT Office Visit [facility] OPTOMETRY [address] [place] [address] Paris Frances, OD [address] [place] [address] 03/22/2025 1:30 PM EDT Clinical Support [facility] MED & PEDS [address] [place] [address] 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, SHEREE [address] [place] [address] documented as of this encounter Goals Goal Patient Goal Type Associated Problems Recent Progress Patient-Stated? Author Blood Pressure < 140/90 Blood Pressure Hypertension 109/75(2024 2:13 PM EDT) No Natanael Oquendo, PharmD documented as of this encounter Visit Diagnoses Diagnosis Chronic midline low back pain without sciatica documented in this encounter Additional Health Concerns Assessment Noted Time PHQ-9 Depression Total Score: 6 01/29/20 23 2:25 PM EDT documented as of this encounter Care Teams Aligner Barrel And Receiver Relationship Specialty Start Date End Date Aj Dumont MD 230 [place] [address] PCP - General Internal Medicine 09/12/14 [facility] 10/17/24 documented as of this encounter
--- OUTSIDE RECORDS SUMMARY | 2025-02-06 14:56 | XMS_ITS | Encounter Summary ---
Author Organization [employer] Address [address] [facility] 7t [place] [address] Care Team Providers Care Bioinformatics Scientist Name Role Phone Aj Dumont MD Primary Care Provide r Reason for Visit * Reason Onset Date Comments Referral 12/01/2023 Encounter Details Date Type Department Care Team ([facility] Contact Info) Description 12/01/2023 Telephone [facility] [address] [place] [address] Aj Dumont MD [address] [place] [address] Referral Social History Tobacco Use Types Packs/Day [...] States was unable to do it at [facility] due to the machine being small . Was advice to get a referral to [facility] . Please call pt to clarify at phone #[phone]. documented in this encounter Plan of Treatment Upcoming Encounters Date Type Department Care Team (Late st Contact Info) Description 02/20/2025 3:30 PM EDT Office Visit [facility] ADULT DENT[facility] [address] [place] [address] Rober Lockett DDS [address] [place] [address] 03/06/2025 11:15 AM EDT Office Visit [facility] [address] [place] [address] Aj Dumont MD [address] [place] [address] 03/15/2025 1:45 PM EDT Office Visit [facility] OPTOMETRY [address] [place] [address] Paris Frances, OD [address] [place] [address] 03/22/2025 1:30 PM EDT Clinical Support [facility]ED[facility] [address] [place] [address] 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, RN 505 [place] [address] documented as of this encounter Goals Goal [...] documented as of this encounter Care Teams Bioinformatics Scientist Relationship Specialty Start Date End Date Aj Dumont MD [address] [place] [address] PCP - General Internal Medicine 09/12/14 [facility] 10/17/24 documented as of this encounter
--- OUTSIDE RECORDS SUMMARY | 2025-02-06 14:56 | XMS_ITS | Encounter Summary ---
Author Organization [employer] Address [address] [facility] 7t [place] [address] Care Team Providers Care Product Management Internship Name Role Phone Aj Dumont MD Primary Care Provide r Reason for Visit * Reason Comments Diabetes Encounter Details Date Type Department Care Team ([facility] Contact Info) Description 01/23/2025 2:00 PM EDT Office Visit [facility] MEDICINE [address] [place] [address] Aj Dumont MD [address] [place] [address] Type 2 diabetes mellitus without complication, with long-term current use of insulin ([facility]) (Primary Dx); Primary hypertension; Mixed hyperlipidemia; Elevated PSA; Preventative health care Social History Tobacco Use Types Packs/Day Years [...] Sign Reading Time Taken Comments Blood Pressure 109/75 01/23/2025 2:13 PM EDT Pulse 100 01/23/2025 2:13 PM EDT Temperature 36.2 ??C (97.1 ??F) 01/23/2025 2:13 PM ED T Respiratory Rate 20 01/23/2025 2:13 PM EDT Oxygen Saturation 98% 01/23/2025 2:13 PM EDT Inhaled Oxygen Concentration - - Weight 95.3 kg (210 lb) 01/23/2025 2:13 PM EDT Height 180.3 cm (5' 11 ) 01/23/2025 2:13 PM EDT Body Mass Index 29.29 01/23/2025 2:13 PM EDT documented in this encounter Progress Notes * Aj Grande MD - 01/23/2025 2:00 PM EDT SUBJECTIVE Cruz Graham is a 64 y.o. male who presents for Diabetes. Diabetes He presents for his follow-up diabetic visit. He has type 2 diabetes mellitus. Pertinent negatives for hypoglycemia include no headaches. Pertinent negatives for diabetes include no chest pain. Review of Systems Constitutional: Negative for fever. HENT: Negative for sore throat. Respiratory: Negative for cough and shortness of breath. Cardiovascular: Negative for chest pain. Gastrointestinal: Negative for abdominal pain. Neurological: Negative for headaches. No Known Allergies OBJECTIVE Vitals: 01/23/25 1413 BP: 109/75 BP Location: Left arm Patient Position: Sitting BP Cuff Size: Adult Pulse: 100 Resp: 20 Temp: 97.1 ??F (36.2 ??C) TempSrc: Temporal [...] This Visit Diabetes mellitus, type II (CMS/HCC) - Primary Patient here for a f/u DM improving He is supposed on a regimen of: Metformin 1000 mg po BID Lantus 40 units sc q pm. And Trulicity 0.75 weekly Hgb A1c 01/23/2025: 7.5 from 8.3 Eye exam was last done 09/03/2017. Microalbumin checked on: 04/30/2021 was: 1.8 Pt on an COLETTE inhibitor (lisinopril) Foot check zero Pt tells me he is not injecting his Lantus every day because he was concerned that it would go too low Review of glucometer shows BG fluctuating between 136-215 Plan: lower Lantus to 20 units subcutaneous q pm continue Trulicity 0.75 weekly Pt reports compliance with Asa 81 mg po daily Pt advised to: adhere to diabetic diet check your blood sugars regularly check your feet on a daily basis F/u 4weeks Relevant Orders POCT Glucose (Completed) POCT HGB A1C (Completed) Hypertension Patient is here for a f/u [...] counseled about weight loss. f/u 3 months Repeat BMP Relevant Orders Basic Metabolic Panel Hyperlipidemia Patient with elevated lipids. Most recent lipid profile from: Lab Results Component Value Date TRIG 46 03/23/2024 TRIG 67 02/08/2023 CHOL 88 03/23/2024 CHOL 113 02/08/2023 LDLCHOLCAL 43 03/23/2024 LDLCHOLCAL 61 02/08/2023 HDL 36 (L) 03/23/2024 HDL 39 02/08/2023 Currently on a regimen of: Atorvastatin 80 mg po q pm LDL at goal advised to try to adhere to a low cholesterol diet, counseled and educated about diet and exercise,Patient encouraged to come up with a personal goal for weight loss. Repeat Lipid profile Relevant Orders Lipid Panel, Standard Elevated PSA Pt here for a f/u Pt was seen by urology for evaluation Biopsy in 09/2016 was NEGATIVE. Repeat PSA 03/23/2024 10.27 Last note on record from Urology 12/12/2024 s/p 09/07 [facility] - pathology chronic prostatitis Preventative health care PSA 03/23/2024 elevated 10.27 Under the care of Urology Colonoscopy: 2009 and pt was seen by GI Dr. Booth in 2022, repeat colonoscopy 11/03/2019 [facility] Mani Fisher colonoscopy showed internal hemorrhoids 10 yr f/u recommended documented in this encounter Miscellaneous Notes * Assessment & Plan Note - Aj Grande MD - 01/23/2025 2:12 PM EDT Associated Problem(s): Hypertension Patient is here for [...] counseled about weight loss. f/u 3 months Repeat BMP * Assessment & Plan Note - Aj Grande MD - 01/23/2025 2:12 PM EDT Associated Problem(s): Hyperlipidemia Patient with elevated lipids. Most recent lipid profile from: Lab Results Component Value Date TRIG 46 03/23/2024 TRIG 67 02/08/2023 CHOL 88 03/23/2024 CHOL 113 02/08/2023 LDLCHOLCAL 43 03/23/2024 LDLCHOLCAL 61 02/08/2023 HDL 36 (L) 03/23/2024 HDL 39 02/08/2023 Currently on a regimen of: Atorvastatin 80 mg po q pm LDL at goal advised to try to adhere to a low cholesterol diet, counseled and educated about diet and exercise,Patient encouraged to come up with a personal goal for weight loss. Repeat Lipid profile * Assessment & Plan Note - Aj Grande MD - 01/23/2025 2:11 PM EDT Associated Problem(s): Diabetes mellitus, type II (CMS/[facility]) Patient here for a f/u DM improving He is supposed on a regimen of: Metformin 1000 mg po BID Lantus 40 units sc q pm. And Trulicity 0.75 weekly Hgb A1c 01/23/2025: 7.5 from 8.3 Eye exam was last done 09/03/2017. Microalbumin checked on: 04/30/2021 was: 1.8 Pt on an COLETTE inhibitor (lisinopril) Foot check zero Pt tells me he is not injecting his Lantus every day because he was concerned that it would go too low Review of glucometer shows BG fluctuating between 136-215 Plan: lower Lantus to 20 units subcutaneous q pm continue Trulicity 0.75 weekly Pt reports compliance with Asa 81 mg po daily Pt advised to: adhere to diabetic diet check your blood sugars regularly check your feet on a daily basis F/u 4weeks * Assessment & Plan Note - Aj Grande MD - 01/23/2025 2:09 PM EDT Associated Problem(s): Elevated PSA Pt here for a f/u Pt was seen by urology for evaluation Biopsy in 09/2016 was NEGATIVE. Repeat PSA 03/23/2024 10.27 Last note on record from Urology 12/12/2024 s/p 09/07 [facility] - pathology chronic prostatitis * Assessment & Plan Note - Aj Grande MD - 01/23/2025 2:05 PM EDT Associated Problem(s): Preventative health care PSA 03/23/2024 elevated 10.27 Under the care of Urology Colonoscopy: 2009 and pt was seen by GI Dr. Booth in 2022, repeat colonoscopy 11/03/2019 [facility] sita Fisher colonoscopy showed internal hemorrhoids 10 yr f/u recommended documented in this encounter Plan of Treatment Upcoming Encounters Date Type Department Care Team (Late st Contact Info) Description 02/20/2025 3:30 PM EDT Office Visit [facility] ADULT DENTAL [address] [place] [address] Rober Lockett, DDS [address] [place] [address] 03/06/2025 11:15 AM EDT Office Visit [facility] MEDICINE [address] [place] [address] Aj Dumont MD [address] [place] [address] 03/15/2025 1:45 PM EDT Office Visit [facility] OPTOMETRY [address] [place] [address] TarkaParis, OD [address] [place] [address] 03/22/2025 1:30 PM EDT Clinical Support [facility] CHC MED & PEDS [address] [place] [address] 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, RN [address] [place] [address] Scheduled Orders Name Type Priority Associated Diagnoses Orde r Schedule Lipid Panel, Standard Lab Routine Mixed hyperlipidemia Ordered: 01/23/2025 Basic Metabolic Panel Lab Routine Primary hypertension Ordered: 01/23/2025 documented as of this encounter Goals Goal Patient Goal Type Associated Problems Recent Progress Patient-Stated? Author Blood Pressure < 140/90 Blood Pressure Hypertension 109/75(2024 2:13 PM EDT) No Natanael Oquendo, PharmD documented as of this encounter Procedures Procedure Name Priority Date/Time Associated Diagnosis Comments POCT GLYCATED HEMOGLOBIN, TOTAL Routine 01/23/2025 2:17 PM EDT Type 2 diabetes mellitus without complication, with long-term current use of insulin ([facility]) POCT GLUCOSE Routine 01/23/2025 2:14 PM EDT Type 2 diabetes mellitus without complication, with long-term current use of insulin ([facility]) documented in this encounter Results * (ABNORMAL) POCT HGB A1C (01/23/2025 2:17 PM EDT) Hemoglobin A1C 7.5(A) 4.0 - 6.0 % QC Media Lot # [id number] Lot# Expiration Date ,026 Blood 01/23/2025 2:17 PM EDT us Aj Grande MD POINT OF CARE TEST EN TER/EDIT ORDERABLES Final Result * (ABNORMAL) POCT Glucose (01/23/2025 2:14 PM EDT) Glucose Blood, POC 242(A) 60 - 200 mg/dL QC Media Lot # [id number] Lot# Expiration Date 826,025 Blood Capillary blood specimen / Unknown 01/23/2025 2:14 PM EDT us Aj Grande MD POINT OF CARE TEST EN TER/EDIT ORDERABLES Final Result documented in this encounter Visit Diagnoses Diagnosis Type 2 diabetes mellitus without complication, with long-term current use of insulin ([facility])- Primary Primary hypertension Unspecified essential hypertension Mixed hyperlipidemia Elevated PSA Elevated prostate specific antigen (PSA) Preventative health care Routine general medical examination at a health care facility documented in this encounter Additional Health Concerns Assessment Noted Time PHQ-9 Depression Total Score: 3 03/16/20 24 2:58 PM EDT documented as of this encounter Care Teams Product Management Internship Relationship Specialty Start Date End Date Aj Dumont MD [address] [place] [address] PCP - General Internal Medicine 09/12/14 [facility] 10/17/24 documented as of this encounter
--- OUTSIDE RECORDS SUMMARY | 2025-02-06 14:56 | XMS_ITS | Encounter Summary ---
Author Organization [employer] Address [address] [facility] 7t [place] [address] Care Team Providers Care Lime Kiln Worker Helper Name Role Phone Aj Dumont MD Primary Care Provide r Reason for Visit * Reason Comments Med Refill Encounter Details Date Type Department Care Team ([facility] Contact Info) Description 01/12/2025 Refill [facility] MEDICINE [address] [place] [address] Aj Dumont MD [address] [place] [address] Chronic midline low back pain without sciatica [...] Description 02/20/2025 3:30 PM EDT Office Visit [facility] ADULT DENTAL [address] [place] [address] Rober Lockett DDS [address] [place] [address] 03/06/2025 11:15 AM EDT Office Visit [facility] MEDICINE [address] [place] [address] Aj Dumont MD [address] [place] [address] 03/15/2025 1:45 PM EDT Office Visit [facility] OPTOMETRY [address] [place] [address] Paris Frances, BENSON [address] [place] [address] 03/22/2025 1:30 PM EDT Clinical Support [facility] CHC MED & PEDS [address] [place] [address] 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, RN [address] [place], [place] documented as of this encounter Goals Goal Patient Goal Type Associated Problems Recent Progress Patient-Stated? Author Blood Pressure < 140/90 Blood Pressure Hypertension 109/75(2024 2:13 PM EDT) Natanael Choi, DorcasD documented as of this encounter Visit Diagnoses Diagnosis Chronic midline low back pain without sciatica documented in this encounter Additional Health Concerns Assessment Noted Time PHQ-9 Depression Total Score: 3 03/16/20 24 2:58 PM EDT documented as of this encounter Care Teams Lime Kiln Worker Helper Relationship Specialty Start Date End Date Aj Dumont MD [address] [place] [address] PCP - General Internal Medicine 09/12/14 [facility] 10/17/24 documented as of this encounter
--- OUTSIDE RECORDS SUMMARY | 2025-02-06 14:56 | XMS_ITS | Encounter Summary ---
Author Organization [employer] Address [address] [facility] [address] 7[address] [place] [address] Care Team Providers Care Test Architect Name Role Phone Aj Dumont MD Primary Care Provide r Reason for Visit * Reason Comments Med Refill Encounter Details Date Type Department Care Team ([facility] Contact Info) Description 12/15/2023 Refill [facility] CHC MED & PEDS [address] [place] [address] Aj Dumont MD [address] [place] [address] Type 2 diabetes mellitus without complication, unspecified whether retirement insulin use ([facility]) Social History Tobacco Use Types [...] Description 02/20/2025 3:30 PM EDT Office Visit [facility] ADULT DENTAL [address] [place] [address] Rober Lockett DDS [address] [place] [address] 03/06/2025 11:15 AM EDT Office Visit [facility] MEDICINE [address] [place] [address] Aj Dumont MD [address] [place] [address] 03/15/2025 1:45 PM EDT Office Visit [facility] OPTOMETRY [address] [place] [address] Paris Frances, OD [address] [place] [address] 03/22/2025 1:30 PM EDT Clinical Support [facility] CHC MED & PEDS [address] [place] [address] 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, SHEREE [address] [place] [address] documented as of this encounter Goals Goal Patient Goal Type Associated Problems Recent Progress Patient-Stated? Author Blood Pressure < 140/90 Blood Pressure Hypertension 109/75(2024 2:13 PM EDT) No Natanael Oquendo, [place] documented as of this encounter Visit Diagnoses Diagnosis Type 2 diabetes mellitus without complication, unspecified whether oysterman insulin use ([facility]) documented in this encounter Additional Health Concerns Assessment Noted Time PHQ-9 Depression Total Score: 6 01/29/20 23 2:25 PM EDT documented as of this encounter Care Teams Test Architect Relationship Specialty Start Date End Date Aj Dumont MD [address] [place] [address] PCP - General Internal Medicine 09/12/14 [facility] 10/17/24 documented as of this encounter
--- OUTSIDE RECORDS SUMMARY | 2025-02-06 14:56 | XMS_ITS | Clinical Summary ---
Author Organization [facility] Address [address] [place] [address] Care Team Providers Care Insole Reinforcer Name Role Phone Unavailable Primary Care Provider Unavailabl e Social History Tobacco Use Types Packs/Day Years Used Date Smoking Tobacco: Never Assessed Sex and Gender Information Value Date Recorded Sex Assigned at Not on file Legal Sex Male 2:18 PM EST Gender Identity Not on file Sexual Orientation Not on file Plan of Treatment Health Maintenance Due Date Last Done Comments DTaP,Tdap,and Td Vaccines (1 - Tdap) 1979 Pneumococcal Vaccine: 50+ Ye ars (1 of 1 - PCV) 2010 Zoster Vaccines (1 of 2) 2010 COVID-19 [...] patient's age to complete this topic Meningococcal B Vacine Aged Out No lo nger eligible based on patient's age to complete [...]
--- OUTSIDE RECORDS SUMMARY | 2025-02-06 14:56 | XMS_ITS | Encounter Summary ---
Author Organization [employer] Address [address] [place] [address] 7t [place] [address] Care Team Providers Care Mix Technician Name Role Phone Aj Dumont MD Primary Care Provide r Reason for Visit * Reason Comments Med Refill Encounter Details Date Type Department Care Team (Late st Contact Info) Description 08/02/2023 Refill [facility] MEDICINE [address] [place], [place] [phone] Aj Dumont MD [address] [place] [address] Chronic midline low back pain without sciatica [...] Description 02/20/2025 3:30 PM EDT Office Visit [facility] ADULT DENTAL [address] [place] [address] Rober Lockett DDS [address] [place] [address] 03/06/2025 11:15 AM EDT Office Visit [facility] MEDICINE [address] [place] [address] Aj Dumont MD [address] [place] [address] 03/15/2025 1:45 PM EDT Office Visit [facility] OPTOMETRY [address] [place] [address] Tarka, Paris, OD [address] [place] [address] 03/22/2025 1:30 PM EDT Clinical Support [facility] CHC MED & PEDS [address] [place], [place] [phone] 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, RN [address] [place] [address] documented as of this encounter Goals Goal Patient Goal Type Associated Problems Recent Progress Patient-Stated? Author Blood Pressure < 140/90 Blood Pressure Hypertension 109/75(2024 2:13 PM EDT) Natanael Choi, PharmD documented as of this encounter Visit Diagnoses Diagnosis Chronic midline low back pain without sciatica documented in this encounter Additional Health Concerns Assessment Noted Time PHQ-9 Depression Total Score: 6 01/29/20 23 2:25 PM EDT documented as of this encounter Care Teams Mix Technician Relationship Specialty Start Date End Date Aj Dumont MD [address] [place], [place] [phone] PCP - General Internal Medicine 09/12/14 [facility] 10/17/24 documented as of this encounter
--- OUTSIDE RECORDS SUMMARY | 2025-02-06 14:56 | XMS_ITS | Encounter Summary ---
Author Organization [employer] Address [address] [facility] [address] [place] [address] Care Team Providers Care Environmental Health Safety Manager Name Role Phone Aj Dumont MD Primary Care Provide r Reason for Visit * Reason Comments Med Refill Encounter Details Date Type Department Care Team ([facility] st Contact Info) Description 10/25/2023 Refill [facility] CHC MED & PEDS [address] [place] [address] Aj Dumont MD [address] [place] [address] Chronic midline low back pain without sciatica [...] Description 02/20/2025 3:30 PM EDT Office Visit [facility] ADULT DENTAL [address] [place] [address] Rober Lockett DDS [address] [place] [address] 03/06/2025 11:15 AM EDT Office Visit [facility] MEDICINE [address] [place] [address] Aj Dumont MD [address] [place] [address] 03/15/2025 1:45 PM EDT Office Visit [facility] OPTOMETRY [address] [place] [address] Paris Frances, OD [address] [place] [address] 03/22/2025 1:30 PM EDT Clinical Support [facility] CHC MED & PEDS [address] [place] [address] 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, SHEREE [address] [place] [address] documented as of this encounter Goals Goal [...] documented as of this encounter Care Teams Environmental Health Safety Manager Relationship Specialty Start Date End Date Aj Dumont MD [address] [place] [address] PCP - General Internal Medicine 09/12/14 [facility] 10/17/24 documented as of this encounter
--- OUTSIDE RECORDS SUMMARY | 2025-02-06 14:56 | XMS_ITS | Encounter Summary ---
Author Organization [employer] Address [address] [facility] [address] [place] [address] Care Team Providers Care Health And Safety Director Name Role Phone Aj Dumont MD Primary Care Provide r Reason for Visit * Reason Comments Med Refill Encounter Details Date Type Department Care Team ([facility] st Contact Info) Description 12/19/[address] [facility] CHC MED & PEDS [address] [place] [address] Aj Dumont MD [address] [place] [address] Chronic midline low back pain without sciatica [...] encounter Miscellaneous Notes * Telephone Encounter - 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 RN - 12/25/2024 9:11 AM EST What GAS DISTRIBUTION SUPERVISOR Tier would you like this patient to be? Tier 1 = HIGH RISK, Monthly GAS DISTRIBUTION SUPERVISOR visits Tier 2 = MODerate RISK, Q3 Month visits Tier 3 = LOW RISK = Q4-6 month visits documented in this encounter Plan of Treatment Upcoming Encounters Date Type Department Care Team (Late st Contact Info) Description 02/20/2025 3:30 PM EDT Office Visit [facility] ADULT DENTAL [address] [place] [address] Rober Lockett DDS [address] [place] [address] 03/06/2025 11:15 AM EDT Office Visit [facility] MEDICINE [address] [place] [address] Aj Dumont MD [address] [place] [address] 03/15/2025 1:45 PM EDT Office Visit [facility] OPTOMETRY [address] [place] [address] Yvrose Paris, OD [address] [place] [address] 03/22/2025 1:30 PM EDT Clinical Support [facility] CHC MED & PEDS [address] [place] [address] 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, RN [address] [place], [place] documented as of this encounter Goals Goal Patient Goal Type Associated Problems Recent Progress Patient-Stated? Author Blood Pressure < 140/90 Blood Pressure Hypertension 109/75(2024 2:13 PM EDT) No Natanael Oquendo, DorcasD documented as of this encounter Visit Diagnoses Diagnosis Chronic midline low back pain without sciatica documented in this encounter Additional Health Concerns Assessment Noted Time PHQ-9 Depression Total Score: 3 03/16/20 24 2:58 PM EDT documented as of this encounter Care Teams Health And Safety Director Relationship Specialty Start Date End Date Aj Dumont MD [address] [place] [address] PCP - General Internal Medicine 09/12/14 [facility] 10/17/24 documented as of this encounter
--- OUTSIDE RECORDS SUMMARY | 2025-02-06 14:56 | XMS_ITS | Encounter Summary ---
Author Organization [employer] Address [address] [facility] 7t [place] [address] Care Team Providers Care Vice President Of Marketing Name Role Phone Aj Dumont MD Primary Care Provide r Reason for Visit * Reason Onset Date Comments Chart Prep 01/11/2025 Encounter Details Date Type Department Care Team ([facility] Contact Info) Description 01/11/2025 Telephone [facility] MEDICINE [address] [place] [address] Aj Dumont MD [address] [place] [address] Chart Prep Social History Tobacco Use Types [...] Telephone Encounter - Tram Garcia [place] - 01/11/2025 11:12 AM EST Chart Prep Labs: not applicable Images: done Vaccines due: Covid Due, Hep A Due, Hep B Due, PCV20 Due, Flu Due, and RSV in Pharmacy Due Referrals: Optometry Pending appointment on n/a Screenings: Colonoscopy and Foot Exam Overdue care gaps: A1C, Glucose, SDOH, and PHQ-9 Chart prep for upcoming appt with Dr.Esparza rios. LB documented in this encounter Plan of Treatment Upcoming Encounters Date Type Department Care Team (Late st Contact Info) Description 02/20/2025 3:30 PM EDT Office Visit [facility] ADULT DENTAL [address] [place] [address] Rober Lockett DDS [address] [place] [address] 03/06/2025 11:15 AM EDT Office Visit [facility] MEDICINE [address] [place] [address] Aj Dumont MD [address] [place], [place] [phone] 03/15/2025 1:45 PM EDT Office Visit [facility] OPTOMETRY [address] [place] [address] AmadeorodParis, OD [address] [place] [address] 03/22/2025 1:30 PM EDT Clinical Support [facility] CHC MED & PEDS [address] [place], [place] [phone] 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, RN [address] [place], [place] documented as of this encounter Goals [...] documented as of this encounter Care Teams Vice President Of Marketing Relationship Specialty Start Date End Date Aj Dumont MD [address] [place], [place] [phone] PCP - General Internal Medicine 09/12/14 [facility] 10/17/24 documented as of this encounter
--- OUTSIDE RECORDS SUMMARY | 2025-02-06 14:56 | XMS_ITS | Encounter Summary ---
Author Organization [employer] Address [address] 7t [place] [address] Care Team Providers Care Meatman Name Role Phone Aj Dumont MD Primary Care Provide r Reason for Visit * Reason Comments Med Refill Encounter Details Date Type Department Care Team ([facility] st Contact Info) Description 12/18/2024 Refill [facility] CHC MED & PEDS [address] [place] [address] Aj Dumont MD 230 [place] [address] Chronic midline low back pain without sciatica [...] Description 02/20/2025 3:30 PM EDT Office Visit [facility] ADULT DENTAL [address] [place] [address] Rober Lockett DDS 230 [place] [address] 03/06/2025 11:15 AM EDT Office Visit [facility] MEDICINE 230 [place] [address] Aj Dumont MD 230 [place] [address] 03/15/2025 1:45 PM EDT Office Visit [facility] OPTOMETRY [address] [place] [address] Paris Frances OD 267 [place] [address] 03/22/2025 1:30 PM EDT Clinical Support [facility] CHC MED & PEDS 505 [place] [address] 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, SHEREE 505 [place] [address] documented as of this encounter Goals Goal [...] documented as of this encounter Care Teams Meatman Relationship Specialty Start Date End Date Aj Dumont MD 230 [place] [address] PCP - General Internal Medicine 09/12/14 [facility] 10/17/24 documented as of this encounter
--- OUTSIDE RECORDS SUMMARY | 2025-02-06 14:56 | XMS_ITS | Encounter Summary ---
Author Organization [employer] Address [address] 7t [place] [address] Care Team Providers Care Case Finishing Machine Adjuster Name Role Phone Aj Dumont MD Primary Care Provide r Encounter Details Date Type Department Care Team ([facility] st Contact Info) Description 01/12/2025 Refill [facility] MEDICINE 230 [place] [address] Aj Dumont MD 230 [place] [address] Chronic midline low back pain without sciatica [...] Description 02/20/2025 3:30 PM EDT Office Visit [facility] ADULT DENTAL 230 [place] [address] Rober Lockett DDS [address] [place] [address] 03/06/2025 11:15 AM EDT Office Visit [facility] MEDICINE [address] [place] [address] Aj Dumont MD 230 [place] [address] 03/15/2025 1:45 PM EDT Office Visit [facility] OPTOMETRY [address] [place] [address] Paris Frances, OD 267 [place] [address] 03/22/2025 1:30 PM EDT Clinical Support [facility] CHC MED & PEDS 505 [place] [address] 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, RN 505 [place], [place] documented as of this encounter Goals [...] documented as of this encounter Care Teams Case Finishing Machine Adjuster Relationship Specialty Start Date End Date Aj Dumont MD 230 [place] [address] PCP - General Internal Medicine 09/12/14 [facility] 10/17/24 documented as of this encounter
--- OUTSIDE RECORDS SUMMARY | 2025-02-06 14:56 | XMS_ITS | Encounter Summary ---
Author Organization [employer] Address [address] 7t [place] [address] Care Team Providers Care Soaker Helper Name Role Phone Aj Dumont MD Primary Care Provide r Reason for Visit * Reason Comments Med Refill Encounter Details Date Type Department Care Team ([facility] st Contact Info) Description 02/29/2024 Refill [facility] CHC MED & PEDS [address] [place] [address] Aj Dumont MD 230 [place] [address] Chronic midline low back pain without sciatica [...] Description 02/20/2025 3:30 PM EDT Office Visit [facility] ADULT DENTAL [address] [place] [address] Rober Lockett DDS [address] [place] [address] 03/06/2025 11:15 AM EDT Office Visit [facility] MEDICINE [address] [place] [address] Aj Dumont MD 230 [place] [address] 03/15/2025 1:45 PM EDT Office Visit [facility] OPTOMETRY [address] [place] [address] Paris Frances, OD 267 [place] [address] 03/22/2025 1:30 PM EDT Clinical Support [facility] CHC MED & PEDS 505 [place] [address] 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, SHEREE 505 [place] [address] documented as of this encounter Goals Goal [...] documented as of this encounter Care Teams Soaker Helper Relationship Specialty Start Date End Date Aj Dumont MD 230 [place] [address] PCP - General Internal Medicine 09/12/14 [facility] 10/17/24 documented as of this encounter
--- OUTSIDE RECORDS SUMMARY | 2025-02-06 14:57 | XMS_ITS | Encounter Summary ---
Author Organization [employer] Address [address] [facility] 7t [place] [address] Care Team Providers Care Fiber Glass Worker Name Role Phone Aj Dumont MD Primary Care Provide r Reason for Visit * Reason Comments Med Refill Encounter Details Date Type Department Care Team ([facility] Contact Info) Description 01/28/2025 Refill [facility] MEDICINE [address] [place] [address] Aj Dumont MD 230 [place] [address] Mixed hyperlipidemia; Reflux gastritis Social History Tobacco Use Types Packs/Day Years [...] Description 02/20/2025 3:30 PM EDT Office Visit [facility] ADULT DENTAL 230 [place] [address] Rober Lockett DDS 230 [place] [address] 03/06/2025 11:15 AM EDT Office Visit [facility] MEDICINE [address] [place] [address] Aj Dumont MD 230 [place] [address] 03/15/2025 1:45 PM EDT Office Visit [facility] OPTOMETRY [address] [place] [address] Paris Frances, OD 267 [place] [address] 03/22/2025 1:30 PM EDT Clinical Support [facility] CHC MED & PEDS 505 [place] [address] 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, RN 505 [place] [address] documented as of this encounter Goals Goal Patient Goal Type Associated Problems Recent Progress Patient-Stated? Author Blood Pressure < 140/90 Blood Pressure Hypertension 109/75(2024 2:13 PM EDT) Natanael Choi, PharmD documented as of this encounter Visit Diagnoses Diagnosis Mixed hyperlipidemia Reflux gastritis Other specified gastritis without mention of hemorrhage documented in this encounter Additional Health Concerns Assessment Noted Time PHQ-9 Depression Total Score: 3 03/16/20 24 2:58 PM EDT documented as of this encounter Care Teams Fiber Glass Worker Relationship Specialty Start Date End Date Aj Dumont MD 230 [place] [address] PCP - General Internal Medicine 09/12/14 [facility] 10/17/24 documented as of this encounter
--- OUTSIDE RECORDS SUMMARY | 2025-02-06 14:57 | XMS_ITS | Encounter Summary ---
Author Organization [employer] Address [address] [place] [address] 7t [place] [address] Care Team Providers Care Acting Section Chief Name Role Phone Aj Dumont MD Primary Care Provide r Reason for Visit * Reason Comments Med Refill Encounter Details Date Type Department Care Team (Late st Contact Info) Description 08/16/2023 Refill [facility] MEDICINE [address] [place] [address] Aj Dumont MD 230 [place] [address] Reflux gastritis; Mixed hyperlipidemia Social History Tobacco [...] Department Care Team (Late Contact Info) Description 02/20/2025 3:30 PM EDT Office Visit [facility] ADULT DENTAL 230 [place] [address] Rober Lockett DDS 230 [place] [address] 03/06/2025 11:15 AM EDT Office Visit [facility] MEDICINE [address] [place] [address] Aj Dumont MD 230 [place] [address] 03/15/2025 1:45 PM EDT Office Visit [facility] OPTOMETRY 267 [place] [address] Tarka Paris, OD 267 [place] [address] 03/22/2025 1:30 PM EDT Clinical Support [facility] CHC MED & PEDS 505 [place], [place] [phone] 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, RN 505 [place] [address] documented as of this encounter Goals Goal [...] documented as of this encounter Care Teams Acting Section Chief Relationship Specialty Start Date End Date Aj Dumont MD [address] [place] [address] [id number] PCP - General Internal Medicine 09/12/14 [facility] 10/17/24 documented as of this encounter
--- OUTSIDE RECORDS SUMMARY | 2025-02-06 14:57 | XMS_ITS | Encounter Summary ---
Author Organization [employer] Address [address] 7t [place] [address] Care Team Providers Care Lab Pack Chemist Name Role Phone Aj Dumont MD Primary Care Provide r Reason for Visit * Reason Comments Med Refill Encounter Details Date Type Department Care Team ([facility] st Contact Info) Description 06/28/2024 Refill [facility] CHC MED & PEDS [address] [place] [address] Aj Dumont MD 230 [place] [address] Chronic midline low back pain without sciatica [...] Description 02/20/2025 3:30 PM EDT Office Visit [facility] ADULT DENTAL 230 [place] [address] Rober Lockett DDS [address] [place] [address] 03/06/2025 11:15 AM EDT Office Visit [facility] MEDICINE 230 [place] [address] Aj Dumont MD 230 [place] [address] 03/15/2025 1:45 PM EDT Office Visit [facility] OPTOMETRY [address] [place] [address] Paris Frances, OD 267 [place] [address] 03/22/2025 1:30 PM EDT Clinical Support [facility] CHC MED & PEDS 505 [place] [address] 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, RN 505 [place] [address] documented as of this encounter Goals Goal [...] documented as of this encounter Care Teams Lab Pack Chemist Relationship Specialty Start Date End Date Aj Dumont MD [address] [place] [address] PCP - General Internal Medicine 09/12/14 [facility] 10/17/24 documented as of this encounter
--- OUTSIDE RECORDS SUMMARY | 2025-02-06 14:57 | XMS_ITS | Encounter Summary ---
Author Organization [employer] Address [address] 7[address] [place] [address] Care Team Providers Care Creeler Name Role Phone Aj Dumont MD Primary Care Provide r Encounter Details Date Type Department Care Team (Latest Contact Info) Description 01/23/2025 Travel Social History Tobacco Use Types Packs/Day [...] 02/20/2025 3:30 PM EDT Office Visit [facility] ADULT DENTAL [address] [place] [address] Rober Lockett DDS [address] [place] [address] 03/06/2025 11:15 AM EDT Office Visit [facility] MEDICINE [address] [place] [address] Aj Dumont MD 230 [place] [address] 03/15/2025 1:45 PM EDT Office Visit [facility] OPTOMETRY [address] [place] [address] Paris Frances, OD [address] [place] [address] 03/22/2025 1:30 PM EDT Clinical Support [facility] CHC MED & PEDS 505 [place] [address] 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, RN 505 [place] [address] documented as of this encounter Goals Goal [...] documented as of this encounter Care Teams Creeler Relationship Specialty Start Date End Date Aj Dumont MD 230 [place] [address] PCP - General Internal Medicine 09/12/14 [facility] 10/17/24 documented as of this encounter
--- OUTSIDE RECORDS SUMMARY | 2025-02-06 14:57 | XMS_ITS | Encounter Summary ---
Author Organization [employer] Address [address] [facility] 7t [place] [address] Care Team Providers Care Engineering Consultant Name Role Phone Aj Dumont MD Primary Care Provide r Reason for Visit * Reason Onset Date Comments Appointment Request 09/18/2024 Encounter Details Date Type Department Care Team ([facility] Contact Info) Description 09/18/2024 Telephone [facility] MEDICINE [address] [place] [address] Aj Dumont MD 230 [place] [address] Appointment Request Social History Tobacco Use Types [...] from pt wanting to rescheduled missed 09/11 [employer] MAINTENANCE WORKER visit documented in this encounter Plan of Treatment Upcoming Encounters Date Type Department Care Team (Late st Contact Info) Description 02/20/2025 3:30 PM EDT Office Visit [facility] ADULT DENTAL [address] [place] [address] Rober Lockett DDS [address] [place] [address] 03/06/2025 11:15 AM EDT Office Visit [facility] MEDICINE [address] [place] [address] Aj Dumnot MD 230 [place] [address] 03/15/2025 1:45 PM EDT Office Visit [facility] OPTOMETRY [address] [place] [address] Paris Frances, OD [address] [place] [address] 03/22/2025 1:30 PM EDT Clinical Support [facility] MED & PEDS 505 [place] [address] 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, RN 505 [place] [address] documented as of this encounter Goals Goal [...] documented as of this encounter Care Teams Engineering Consultant Relationship Specialty Start Date End Date Aj Dumont MD 230 [place] [address] PCP - General Internal Medicine 09/12/14 [facility] 10/17/24 documented as of this encounter
--- OUTSIDE RECORDS SUMMARY | 2025-02-06 14:57 | XMS_ITS | Encounter Summary ---
Author Organization [employer] Address [address] [facility] 7t [place] [address] Care Team Providers Care Log Cooker Name Role Phone Aj Dumont MD Primary Care Provide r Reason for Visit * Reason Onset Date Comments Med Refill 09/29/2023 Encounter Details Date Type Department Care Team ([facility] Contact Info) Description 09/29/2023 Telephone [facility] MEDICINE [address] [place] [address] Aj Dumont MD 230 [place] [address] Med Refill Social History Tobacco Use Types [...] Description 02/20/2025 3:30 PM EDT Office Visit [facility] ADULT DENTAL [address] [place] [address] Rober Lockett DDS [address] [place] [address] 03/06/2025 11:15 AM EDT Office Visit [facility] MEDICINE [address] [place] [address] Aj Dumont MD 230 [place] [address] 03/15/2025 1:45 PM EDT Office Visit [facility] OPTOMETRY [address] [place] [address] Paris Frances, OD 267 [place] [address] 03/22/2025 1:30 PM EDT Clinical Support [facility] CHC MED & PEDS 505 [place] [address] 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, RN 505 [place] [address] documented as of this encounter Goals Goal [...] documented as of this encounter Care Teams Log Cooker Relationship Specialty Start Date End Date Aj Dumont MD 230 [place] [address] PCP - General Internal Medicine 09/12/14 [facility] 10/17/24 documented as of this encounter
--- OUTSIDE RECORDS SUMMARY | 2025-02-06 14:57 | XMS_ITS | Encounter Summary ---
Author Organization [employer] Address [address] [facility] 7t [place] [address] Care Team Providers Care Antitank Assault Gunner Name Role Phone Aj Dumont MD Primary Care Provide r Encounter Details Date Type Department Care Team (Late Contact Info) Description 01/27/2023 Orders Only [facility] CHC MED & PEDS [address] [place] [address] Jennifer Knott LPN Social History Tobacco Use [...] Description 02/20/2025 3:30 PM EDT Office Visit [facility] ADULT DENTAL [address] [place] [address] Rober Lockett DDS [address] [place] [address] 03/06/2025 11:15 AM EDT Office Visit [facility] MEDICINE [address] [place] [address] Aj Dumont MD 230 [place] [address] 03/15/2025 1:45 PM EDT Office Visit [facility] OPTOMETRY [address] [place] [address] TarParis velasco, OD 267 [place] [address] 03/22/2025 1:30 PM EDT Clinical Support [facility] CHC MED & PEDS [address] [place] [address] 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, RN 505 [place] [address] documented as of this encounter Visit Diagnoses Not on filedocumented in this encounter Care Teams Antitank Assault Gunner Relationship Specialty Start Date End Date Aj Dumont MD 230 [place] [address] PCP - General Internal Medicine 09/12/14 [facility] 10/17/24 documented as of this encounter
--- OUTSIDE RECORDS SUMMARY | 2025-02-06 14:57 | XMS_ITS | Encounter Summary ---
Author Organization [employer] Address [address] [facility] 7t [place] [address] Care Team Providers Care Rabbit Fancier Name Role Phone Aj Dumont MD Primary Care Provide r Reason for Visit * Reason Comments Med Refill Encounter Details Date Type Department Care Team ([facility] Contact Info) Description 10/11/2024 Refill [facility] MEDICINE [address] [place] [address] Aj Dumont MD 230 [place] [address] Social History Tobacco Use Types Packs/Day Years [...] Description 02/20/2025 3:30 PM EDT Office Visit [facility] ADULT DENTAL [address] [place] [address] Rober Lockett DDS [address] [place] [address] 03/06/2025 11:15 AM EDT Office Visit [facility] MEDICINE [address] [place] [address] Aj Dumont MD 230 [place] [address] 03/15/2025 1:45 PM EDT Office Visit [facility] OPTOMETRY [address] [place] [address] Paris Frances, BENSON 267 [place] [address] 03/22/2025 1:30 PM EDT Clinical Support [facility] CHC MED & PEDS 505 [place] [address] 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, RN 505 [place] [address] documented as of this encounter Goals Goal [...] documented as of this encounter Care Teams Rabbit Fancier Relationship Specialty Start Date End Date Aj Dumont MD [address] [place] [address] PCP - General Internal Medicine 09/12/14 [facility] 10/17/24 documented as of this encounter
--- OUTSIDE RECORDS SUMMARY | 2025-02-06 14:57 | XMS_ITS | Encounter Summary ---
Author Organization [employer] Address [address] 7t [place] [address] Care Team Providers Care Farm Products Shipper Name Role Phone Aj Dumont MD Primary Care Provide r Reason for Visit * Reason Comments Med Refill Encounter Details Date Type Department Care Team ([facility] Contact Info) Description 01/28/2025 Refill [facility] MEDICINE 230 [place] [address] Lea Malone, ANP 230 [place] [address] Social History Tobacco Use Types Packs/Day Years [...] 02/20/2025 3:30 PM EDT Office Visit [facility] ADULT DENTAL 230 [place] [address] Rober Lockett DDS [address] [place] [address] 03/06/2025 11:15 AM EDT Office Visit [facility] MEDICINE [address] [place] [address] Aj Dumont MD 230 [place] [address] 03/15/2025 1:45 PM EDT Office Visit [facility] OPTOMETRY [address] [place] [address] Paris Frances, OD 267 [place] [address] 03/22/2025 1:30 PM EDT Clinical Support [facility] CHC MED & PEDS [address] [place] [address] 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, RN 505 [place] [address] documented as of this encounter Goals Goal Patient Goal Type Associated Problems Recent Progress Patient-Stated? Author Blood Pressure < 140/90 Blood Pressure Hypertension 109/75(2024 2:13 PM EDT) No Natanael Oquendo, [place] documented as of this encounter Visit Diagnoses Not on filedocumented in this encounter Additional Health Concerns Assessment Noted Time PHQ-9 Depression Total Score: 3 03/16/20 2:58 PM EDT documented as of this encounter Care Teams Farm Products Shipper Relationship Specialty Start Date End Date Aj Dumont MD 230 [place] [address] PCP - General Internal Medicine 09/12/14 [facility] 10/17/24 documented as of this encounter
--- OUTSIDE RECORDS SUMMARY | 2025-02-06 14:57 | XMS_ITS | Encounter Summary ---
Author Organization [employer] Address [address] [facility] 7t [place] [address] Care Team Providers Care School Bus Driver/Custodian Name Role Phone Aj Dumont MD Primary Care Provide r Reason for Visit * Reason Comments Med Refill Encounter Details Date Type Department Care Team ([facility] Contact Info) Description 02/02/2025 Refill [facility] MEDICINE [address] [place] [address] Aj Dumont MD 230 [place] [address] Type 2 diabetes mellitus without complication, with long-term current use of insulin ([facility]) Social History Tobacco Use Types Packs/Day Years [...] Description 02/20/2025 3:30 PM EDT Office Visit [facility] ADULT DENTAL [address] [place] [address] Rober Lockett DDS [address] [place] [address] 03/06/2025 11:15 AM EDT Office Visit [facility] MEDICINE [address] [place] [address] Aj Dumont MD [address] [place] [address] 03/15/2025 1:45 PM EDT Office Visit [facility] OPTOMETRY [address] [place] [address] Paris Frances OD [address] [place] [address] 03/22/2025 1:30 PM EDT Clinical Support [facility] CHC MED & PEDS 505 [place] [address] 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, RN 505 [place] [address] documented as of this encounter Goals Goal Patient Goal Type Associated Problems Recent Progress Patient-Stated? Author Blood Pressure < 140/90 Blood Pressure Hypertension 109/75(2024 2:13 PM EDT) No Natanael Oquendo, PharmD documented as of this encounter Visit Diagnoses Diagnosis Type 2 diabetes mellitus without complication, with long-term current use of insulin ([facility]) documented in this encounter Additional Health Concerns Assessment Noted Time PHQ-9 Depression Total Score: 3 03/16/20 24 2:58 PM EDT documented as of this encounter Care Teams School Bus Driver/Custodian Relationship Specialty Start Date End Date Aj Dumont MD 230 [place] [address] PCP - General Internal Medicine 09/12/14 [facility] 10/17/24 documented as of this encounter
--- OUTSIDE RECORDS SUMMARY | 2025-02-06 14:57 | XMS_ITS | Encounter Summary ---
Author Organization [employer] Address [address] [place] [address] 7t [place] [address] Care Team Providers Care Ditch Inspector Name Role Phone Aj Dumont MD Primary Care Provide r Encounter Details Date Type Department Care Team (Late st Contact Info) Description 11/24/2022 Orders Only [facility] MEDICINE [address] [place] [address] Shae Sofia LPN Social History Tobacco Use [...] Description 02/20/2025 3:30 PM EDT Office Visit [facility] ADULT DENTAL [address] [place] [address] Rober Lockett DDS [address] [place] [address] 03/06/2025 11:15 AM EDT Office Visit [facility] MEDICINE [address] [place] [address] Aj Dumont MD 230 [place] [address] 03/15/2025 1:45 PM EDT Office Visit [facility] OPTOMETRY [address] [place] [address] Paris Frances, OD [address] [place] [address] 03/22/2025 1:30 PM EDT Clinical Support [facility] CHC MED & PEDS 505 [place], [place] [id number] 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, RN 505 [place] [address] documented as of this encounter Visit Diagnoses Not on filedocumented in this encounter Care Teams Ditch Inspector Relationship Specialty Start Date End Date Aj Dumont MD [address] [place] [address] PCP - General Internal Medicine 09/12/14 [facility] 10/17/24 documented as of this encounter
--- OUTSIDE RECORDS SUMMARY | 2025-02-06 14:57 | XMS_ITS | Encounter Summary ---
Author Organization [employer] Address [address] [place] [address] 7 [place] [address] Care Team Providers Care Automobile Mechanic Radiator Name Role Phone Aj Dumont MD Primary Care Provide r Reason for Visit * Reason Comments Med Refill Encounter Details Date Type Department Care Team (Late st Contact Info) Description 08/14/2023 Refill [facility] MEDICINE [address] [place] [address] Aj Dumont MD [address] [place] [address] Type 2 diabetes mellitus without complication, with long-term current use of insulin ([facility]) Social History Tobacco Use Types Packs/Day [...] 3:30 PM EDT Office Visit [facility] ADULT DENTAL [address] [place] [address] Rober Lockett DDS [address] [place] [address] 03/06/2025 11:15 AM EDT Office Visit [facility] MEDICINE [address] [place] [address] Aj Dumont MD [address] [place] [address] 03/15/2025 1:45 PM EDT Office Visit [facility] OPTOMETRY [address] [place] [address] Paris Frances, OD [address] [place] [address] 03/22/2025 1:30 PM EDT Clinical Support [facility] CHC MED & PEDS [address] [place], [place] [phone] 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, RN 505 [place] [address] documented as of this encounter Goals Goal Patient Goal Type Associated Problems Recent Progress Patient-Stated? Author Blood Pressure < 140/90 Blood Pressure Hypertension 109/75(2024 2:13 PM EDT) Natanael Choi, PharmD documented as of this encounter Visit Diagnoses Diagnosis Type 2 diabetes mellitus without complication, with long-term current use of insulin ([facility]) documented in this encounter Additional Health Concerns Assessment Noted Time PHQ-9 Depression Total Score: 6 01/29/20 23 2:25 PM EDT documented as of this encounter Care Teams Automobile Mechanic Radiator Relationship Specialty Start Date End Date Aj Dumont MD [address] [place], [place] [phone] PCP - General Internal Medicine 09/12/14 [facility] 10/17/24 documented as of this encounter
--- OUTSIDE RECORDS SUMMARY | 2025-02-06 14:57 | XMS_ITS | Encounter Summary ---
Author Organization [employer] Address [address] [facility] 7t [place] [address] Care Team Providers Care Finishing Area Supervisor Name Role Phone Aj Dumont MD Primary Care Provide r Reason for Visit * Reason Onset Date Comments Appointment Request 06/21/2024 Encounter Details Date Type Department Care Team ([facility] Contact Info) Description 06/21/2024 Telephone [facility] MEDICINE [address] [place] [address] Aj Dumont MD [address] [place] [address] Appointment Request Social History Tobacco Use Types [...] 02/20/2025 3:30 PM EDT Office Visit [facility] ADULT DENTAL [address] [place] [address] Rober Lockett DDS [address] [place] [address] 03/06/2025 11:15 AM EDT Office Visit [facility] MEDICINE [address] [place] [address] Aj Dumont MD [address] [place] [address] 03/15/2025 1:45 PM EDT Office Visit [facility] OPTOMETRY [address] [place] [address] Paris Frances, OD [address] [place] [address] 03/22/2025 1:30 PM EDT Clinical Support [facility] MED & PEDS [address] [place] [address] 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, RN [address] [place] [address] documented as of this encounter Goals Goal [...] documented as of this encounter Care Teams Finishing Area Supervisor Relationship Specialty Start Date End Date Aj Dumont MD [address] [place] [address] PCP - General Internal Medicine 09/12/14 [facility] 10/17/24 documented as of this encounter
--- OUTSIDE RECORDS SUMMARY | 2025-02-06 14:57 | XMS_ITS | Encounter Summary ---
Author Organization [employer] Address [address] [place] [address] 7t [place] [address] Care Team Providers Care Motor Transport Inspector Name Role Phone Aj Dumont MD Primary Care Provide r Reason for Visit * Reason Comments Med Refill Encounter Details Date Type Department Care Team (Late Contact Info) Description 12/17/2022 Refill [facility] MEDICINE [address] [place] [address] Aj Dumont MD [address] [place] [address] Chronic midline low back pain without sciatica [...] 02/20/2025 3:30 PM EDT Office Visit [facility] ADULT DENTAL [address] [place] [address] Rober Lockett DDS [address] [place] [address] 03/06/2025 11:15 AM EDT Office Visit [facility] MEDICINE [address] [place] [address] Aj Dumont MD 230 [place] [address] 03/15/2025 1:45 PM EDT Office Visit [facility] OPTOMETRY [address] [place] [address] Paris Frances, OD [address] [place] [address] 03/22/2025 1:30 PM EDT Clinical Support [facility] CHC MED & PEDS 505 [place] [address] 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, RN 505 [place] [address] documented as of this encounter Visit Diagnoses Diagnosis Chronic midline low back pain without sciatica documented in this encounter Care Teams Motor Transport Inspector Relationship Specialty Start Date End Date Aj Dumont MD [address] [place] [address] PCP - General Internal Medicine 09/12/14 [facility] 10/17/24 documented as of this encounter
--- OUTSIDE RECORDS SUMMARY | 2025-02-06 14:57 | XMS_ITS | Encounter Summary ---
Author Organization [employer] Address [address] [facility] [address] [address] 7t [place] [address] Care Team Providers Care Convex Grinder Operator Name Role Phone Aj Dumont MD Primary Care Provide r Reason for Visit * Reason Comments Med Refill Encounter Details Date Type Department Care Team ([facility] Contact Info) Description 11/14/2024 Refill [facility] CHC MED & PEDS [address] [place] [address] Aj Dumont MD 230 [place] [address] Chronic midline low back pain without sciatica [...] Description 02/20/2025 3:30 PM EDT Office Visit [facility] ADULT DENTAL [address] [place] [address] Rober Lockett DDS [address] [place] [address] 03/06/2025 11:15 AM EDT Office Visit [facility] MEDICINE [address] [place] [address] Aj Dumont MD [address] [place] [address] 03/15/2025 1:45 PM EDT Office Visit [facility] OPTOMETRY [address] [place] [address] Paris Frances OD [address] [place] [address] 03/22/2025 1:30 PM EDT Clinical Support [facility] CH[facility] MED & PEDS 505 [place] [address] 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, SHEREE 505 [place] [address] documented as of this encounter Goals Goal [...] documented as of this encounter Care Teams Convex Grinder Operator Relationship Specialty Start Date End Date Aj Dumont MD 230 [place] [address] PCP - General Internal Medicine 09/12/14 [facility] 10/17/24 documented as of this encounter
--- OUTSIDE RECORDS SUMMARY | 2025-02-06 14:57 | XMS_ITS | Encounter Summary ---
Author Organization [employer] Address [address] [facility] 7t [place] [address] Care Team Providers Care Practice Architect Name Role Phone Aj Dumont MD Primary Care Provide r Reason for Visit * Reason Comments Med Refill Encounter Details Date Type Department Care Team ([facility] st Contact Info) Description 09/30/2023 Refill [facility] MEDICINE [address] [place] [address] Loly Johnson MD [address] [place] [address] Chronic midline low back pain without sciatica [...] 02/20/2025 3:30 PM EDT Office Visit [facility] ADULT DENTAL [address] [place] [address] Rober Lockett DDS [address] [place] [address] 03/06/2025 11:15 AM EDT Office Visit [facility] MEDICINE [address] [place] [address] Aj Dumont MD [address] [place] [address] 03/15/2025 1:45 PM EDT Office Visit [facility] OPTOMETRY [address] [place] [address] Paris Frances, OD [address] [place] [address] 03/22/2025 1:30 PM EDT Clinical Support [facility] CHC MED & PEDS 505 [place] [address] 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, RN 505 [place] [address] documented as of this encounter Goals Goal [...] documented as of this encounter Care Teams Practice Architect Relationship Specialty Start Date End Date Aj Dumont MD [address] [place] [address] PCP - General Internal Medicine 09/12/14 [facility] 10/17/24 documented as of this encounter
--- OUTSIDE RECORDS SUMMARY | 2025-02-06 14:57 | XMS_ITS | Encounter Summary ---
Author Organization [employer] Address [address] [facility] 7t [place] [address] Care Team Providers Care Glove Printer Name Role Phone Aj Dumont MD Primary Care Provide r Reason for Visit * Reason Onset Date Comments Med Refill 03/31/2024 Encounter Details Date Type Department Care Team ([facility] Contact Info) Description 03/31/[address] [facility] MEDICINE [address] [place] [address] Aj Dumont MD [address] [place] [address] Med Refill Social History Tobacco Use Types [...] 5-325 MG tablet To be sent to: [facility] [place] [place] - [address] [place] [address] documented in this encounter Plan of Treatment Upcoming Encounters Date Type Department Care Team ([facility] st Contact Info) Description 02/20/2025 3:30 PM EDT Office Visit [facility] ADULT DENTAL [address] [place] [address] Rober Lockett DDS [address] [place] [address] 03/06/2025 11:15 AM EDT Office Visit [facility] MEDICINE [address] [place] [address] Aj Dumont MD [address] [place] [address] 03/15/2025 1:45 PM EDT Office Visit [facility] OPTOMETRY [address] [place], [place] [phone] Paris Frances, OD [address] [place] [address] 03/22/2025 1:30 PM EDT Clinical Support [facility] CHC MED & PEDS 505 [place] [address] 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, RN 505 [place], [place] documented as of this encounter Goals [...] documented as of this encounter Care Teams Glove Printer Relationship Specialty Start Date End Date Aj Dumont MD [address] [place] [address] PCP - General Internal Medicine 09/12/14 [facility] 10/17/24 documented as of this encounter
--- OUTSIDE RECORDS SUMMARY | 2025-02-06 14:57 | XMS_ITS | Encounter Summary ---
Author Organization [employer] Address [address] [place] [address] 7t [place] [address] Care Team Providers Care Outside Collector Name Role Phone Aj Dumont MD Primary Care Provide r Reason for Visit * Reason Comments Med Refill Encounter Details Date Type Department Care Team (Late st Contact Info) Description 03/29/2023 Refill [facility] CHC MED & PEDS [address] [place] [address] Aj Dumont MD [address] [place] [address] Chronic midline low back pain without sciatica [...] Description 02/20/2025 3:30 PM EDT Office Visit [facility] ADULT DENTAL [address] [place] [address] Rober Lockett DDS [address] [place] [address] 03/06/2025 11:15 AM EDT Office Visit [facility] MEDICINE 230 [facility] [place] [address] Aj Dumont MD 230 [facility] [place] [address] 03/15/2025 1:45 PM EDT Office Visit [facility] OPTOMETRY [address] [place] [address] TarkaParis, OD 267 [place] [address] 03/22/2025 1:30 PM EDT Clinical Support [facility] CHC MED & PEDS 505 [place], [place] [phone] 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, RN 505 [place], [place] [phone] documented as of this encounter Visit Diagnoses Diagnosis Chronic midline low back pain without sciatica documented in this encounter Additional Health Concerns Assessment Noted Time PHQ-9 Depression Total Score: 6 01/29/20 23 2:25 PM EDT documented as of this encounter Care Teams Outside Collector Relationship Specialty Start Date End Date Aj Dumont MD [address] [place] [address] PCP - General Internal Medicine 09/12/14 [facility] 10/17/24 documented as of this encounter
--- OUTSIDE RECORDS SUMMARY | 2025-02-06 14:57 | XMS_ITS | Patient Health Record ---
Author Organization [facility] Address [address] [place] [address] Care Team Providers Care Slab Inspector Name Role Phone YUNIEL BAEZA Primary Care Provider U Papi Mckenzie Unavailable [phone] Allergies No Known Allergies Reason For Referral No Information Medications Medication SIG (Take, Route, Frequency, Duration) Notes [...] Lisinopril 40 MG TAKE 1 TABLET BY CZEAR TH EVERY MORNING Oral for 90 Active [...] IN THE EVENING Oral for 30 Active Acmbb-9-ivea Ethyl Esters 1 GM TAKE 1 CAPSULE [...] SUBCUTANEOUSLY ONCE DAILY Subcutaneous for 29 Active Immunizations Vaccine Route Administration Date Status Comme nts Influenza Unknown 12/09/2022 Refused Social History Tobacco Use: Social History Observation Description Date Details (start date - stop date) Current Smoker NA - NA Tobacco Use/Smoking Question Answer Notes Patient is a current smoker How often do you smoke cigarettes? some days, bu t not every day How many cigarettes a day do you smoke? 5 or les s Alcohol Screen Question Answer Notes Did you have a drink containing alcohol in the p ast year? No Points 0 Interpretation Negative Section Notes: Smoker; no sig alcohol Problems Problem Type SNOMED Code ICD Code Onset Dates Problem Status W/U Status Risk Notes Problem [id number] Colon cancer screening (Z12.11) Active confirmed Problem [id number] Preprocedural examination (Z01.818) Active confirmed Plan Of Treatment No Information Insurance Providers Payer Name Payer Address Payer Phone Subscriber Number Group Number Insured Name Patient Relationship to Insured Coverage Start Date Coverage End Date [facility] [address] [address] [place] [address] [id number] [id number] Self - patient is the insured Medical (General) History Medical History History ICD Code Hypertension Depression Peripheral neuropathy IDDM Osteoarthritis Hyperlipidemia NC/CAD-s/p coronary artery stent placeme nt --Dr. Lars [place],acute Cervical radiculopathy Negative colonoscopies inn and [address] Fleming--large internal and external hemorrhoids COVID Denies CVA,renal disease Asthma Surgical History Surgery Date(Month/Year) Left knee surgery Right hand BPH
--- OUTSIDE RECORDS SUMMARY | 2025-02-06 14:57 | XMS_ITS | Encounter Summary ---
Author Organization [employer] Address [address] 7[address] [place] [address] Care Team Providers Care Musculoskeletal Physiotherapist Name Role Phone Aj Dumont MD Primary Care Provide r Reason for Visit * Reason Comments Med Refill Encounter Details Date Type Department Care Team ([facility] st Contact Info) Description 01/26/2025 Refill [facility] CHC MED & PEDS [address] [place] [address] Jennifer Carrera, DO 230 [place] [address] Type 2 diabetes mellitus without complication, unspecified whether body corporate manager insulin use ([facility]) Social History Tobacco Use Types Packs/Day Years [...] Description 02/20/2025 3:30 PM EDT Office Visit [facility] ADULT DENTAL [address] [place] [address] Rober Lockett DDS [address] [place] [address] 03/06/2025 11:15 AM EDT Office Visit [facility] MEDICINE [address] [place] [address] Aj Dumont MD [address] [place] [address] 03/15/2025 1:45 PM EDT Office Visit [facility] OPTOMETRY [address] [place] [address] Paris Frances OD 267 [place] [address] 03/22/2025 1:30 PM EDT Clinical Support [facility] CHC MED & PEDS 505 [place] [address] 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, RN 505 [place] [address] documented as of this encounter Goals Goal Patient Goal Type Associated Problems Recent Progress Patient-Stated? Author Blood Pressure < 140/90 Blood Pressure Hypertension 109/75(2024 2:13 PM EDT) No Natanael Oquendo, PharmD documented as of this encounter Visit Diagnoses Diagnosis Type 2 diabetes mellitus without complication, unspecified whether body corporate manager insulin use ([facility]) documented in this encounter Additional Health Concerns Assessment Noted Time PHQ-9 Depression Total Score: 3 03/16/20 2:58 PM EDT documented as of this encounter Care Teams Musculoskeletal Physiotherapist Relationship Specialty Start Date End Date Aj Dumont MD [address] [place] [address] PCP - General Internal Medicine 09/12/14 [facility] 10/17/24 documented as of this encounter
--- OUTSIDE RECORDS SUMMARY | 2025-02-06 14:57 | XMS_ITS | Clinical Summary ---
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 Narrative 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 RN - 11/16/2024 2:17 PM EST Lot# [id number] Exp: 10-21-25 Aj Grande MD POINT OF CARE TEST EN TER/EDIT ORDERABLES Final Result * HIV Ab/Ag (KS LERYO) (02/08/2023 12:41 PM EDT) HIV AB/AG Nonreactive Nonreactive [facility] Comment:HIV-1 p24 Ag and/or HIV-1/HIV-2 Ab not detected.A test result that is nonreactive does not exclude thepossibility of exposure to or infection with HIV-1 and/orHIV-2. Nonreactive results in this assay for individualswith prior exposure to HIV-1 and/or HIV-2 may be due toantigen and antibody levels that are below the limit ofdetection of this assay.The [employer] HIV Ag/Ab Combo assay result andsupplemental assay results should be interpreted inconjunction with the patient's clinical presentation,history and other laboratory results. If the results areinconsistent with clinical evidence, additional testing issuggested to confirm the result. 02/08/2023 12:4 1 PM EDT 02/08/2023 12:41 PM EDT [facility] External Provider LAB BLO OD ORDERABLES Final Result [facility] [address] [place] [phone] * Hepatitis C Viral RNA, Quantitative, Real-Time PCR (02/08/2023 12:41 PM EDT) Hepatitis C Viral Load <15 NOT DETECTED NOT DETECTED IU/mL [facility] HCV Log PCR <1.18 NOT DETECTED NOT DETECTED Log IU/mL [facility] Comment:This test was perfor med using Real-Time Polymerase ChainReaction.Reportable Range: 15 IU/mL to 100,000,000 IU/mL(1.18 Log IU/mL to 8.00 Log IU/mL).The analytical performance characteristics of thisassay have been determined by [employer].The modifications have not been cleared or approved bythe FDA. This assay has been validated pursuant to theCLIA regulations and is used for clinical purposes.For more information on this test, go to:http://education.[employer]/faq/RRD05u4(This link is being provided for informational/educational purposes only.)THIS TEST WAS PERFORMED AT:[employer] [place] [phone] CAMARA MD 02/08/2023 12:4 1 PM EDT 02/08/2023 12:41 PM EDT [facility] External Provider LAB BLO OD ORDERABLES Final Result Performing Organization Address City/[facility]/ZIP Co de Phone Number [facility] [address] [place] [address] [phone] * ALBUMIN, RANDOM URINE W/CREATININE (04/30/2021 [...] URINE ORDERABLES Final Result Performing Organization Address City/[facility]/ZIP Co de Phone Number [facility] [address] from Last 3 Months or Most Recently Relevant to Health Maintenance Insurance [facility] MEDICARE ADVANTAGE [facility] Care Teams Geothermal Technician Relationship Specialty Start Date End Date Aj Dumont MD [address] [place] [address] PCP - General Internal Medicine 09/12/14 [facility] 10/17/24
--- OUTSIDE RECORDS SUMMARY | 2025-02-06 14:57 | XMS_ITS | Encounter Summary ---
Author Organization [employer] Address [address] [place] [address] [address] [place] [address] Care Team Providers Care Tank Hoop Bender Name Role Phone Aj Dumont MD Primary Care Provide r Reason for Visit * Reason Comments Med Refill Encounter Details Date Type Department Care Team (Late Contact Info) Description 12/17/2022 Refill [facility] MEDICINE [address] [place] [address] Aj Dumont MD [address] [place] [address] Chronic midline low back pain without sciatica [...] 02/20/2025 3:30 PM EDT Office Visit [facility] ADULT DENTAL [address] [place] [address] Rober Lockett DDS [address] [place] [address] 03/06/2025 11:15 AM EDT Office Visit [facility] MEDICINE [address] [place] [address] Aj Dumont MD [address] [place] [address] 03/15/2025 1:45 PM EDT Office Visit [facility] OPTOMETRY [address] [place] [address] Paris Frances, OD [address] [place] [address] 03/22/2025 1:30 PM EDT Clinical Support [facility] CHC MED & PEDS [address] [place] [address] 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, RN [address] [place] [address] documented as of this encounter Visit Diagnoses Diagnosis Chronic midline low back pain without sciatica documented in this encounter Care Teams Tank Hoop Bender Relationship Specialty Start Date End Date Aj Dumont MD [address] [place] [phone] PCP - General Internal Medicine 09/12/14 [facility] 10/17/24 documented as of this encounter
--- OUTSIDE RECORDS SUMMARY | 2025-02-06 14:57 | XMS_ITS | Encounter Summary ---
Author Organization [employer] Address [address] [place] [address] Care Team Providers Care Fabric Worker Supervisor Name Role Phone Aj Dumont MD Primary Care Provide r Reason for Visit * Reason Comments Med Refill Encounter Details Date Type Department Care Team ([facility] st Contact Info) Description 06/28/2024 Refill [facility] CHC MED & PEDS [address] [place] [address] Aj Dumont MD [address] [place] [address] Chronic midline low back pain without sciatica [...] [facility] ADULT DENTAL [address] [place] [address] Rober Lockett DDS [address] [place] [address] 03/06/2025 11:15 AM EDT Office Visit [facility] MEDICINE [address] [place] [address] Aj Dumont MD [address] [place] [address] 03/15/2025 1:45 PM EDT Office Visit [facility] OPTOMETRY [address] [place] [address] Paris Frances, OD [address] [place] [address] 03/22/2025 1:30 PM EDT Clinical Support [facility] CHC MED & PEDS [address] [place] [address] 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, RN [address] [place] [address] documented as of this encounter Goals Goal [...] documented as of this encounter Care Teams Fabric Worker Supervisor Relationship Specialty Start Date End Date Aj Dumont MD [address] [place] [phone] PCP - General Internal Medicine 09/12/14 [facility] 10/17/24 documented as of this encounter
== END 2025-02-06 12:10 | disposition home or self-care (01) ==
LOC: HO.HHCL 12:09
PROVIDERS: Visit Provider Internal Medicine
DX: E78.2 Mixed hyperlipidemia (principal); I10 Essential (primary) hypertension
CPT/HCPCS: 36415; 80048; 80061

== ENCOUNTER 2025-05-09 09:40 | Emergency (ER) | payer MEDICARE, SELFPAY ==
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
[2025-05-09 10:02] VITALS: BP 115/69; PULSE 80; RESP 16; TEMP 37; O2SAT 99; BMI 24.3
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
--- OUTSIDE RECORDS SUMMARY | 2025-05-09 12:33 | XMS_ITS | Encounter Summary ---
Author Organization [facility] Address [address] [facility] [address] [place] [address] Care Team Providers Care Director Of Volunteer Services Name Role Phone Aj Dumont MD Primary Care Provide r Reason for Visit * Reason Comments Med Refill Encounter Details Date Type Department Care Team ([facility] st Contact Info) Description 02/29/2024 Refill [facility] [address] [place] [address] Aj Dumont MD [address] [place] [address] Chronic midline low back pain without sciatica [...] Care Team (Late st Contact Info) Description 06/07/2025 11:15 AM EDT Office Visit [facility] [address] [place] [address] Aj Dumont MD [address] [place] [address] 06/18/2025 2:00 PM EDT Telemedicine [facility] [address] [place] [address] 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, RN [address] [place] [address] documented as of this encounter Goals Goal Patient Goal Type Associated Problems Recent Progress Patient-Stated? Author Blood Pressure < 140/90 Blood Pressure Hypertension 109/72(2024 10:23 AM EDT) No Natanael Oquendo, PharmD documented as of this encounter Visit Diagnoses Diagnosis Chronic midline low back pain without sciatica documented in this encounter Additional Health Concerns Assessment Noted Time PHQ-9 Depression Total Score: 6 01/29/20 23 2:25 PM EDT documented as of this encounter Care Teams Director Of Volunteer Services Relationship Specialty Start Date End Date Aj Dumont MD [address] [place] [id number] PCP - General Internal Medicine 09/12/14 [facility] 10/17/24 documented as of this encounter
[2025-05-09 12:52] VITALS: BP 124/69; PULSE 60; RESP 12; TEMP 36.6; O2SAT 98
[2025-05-09 12:53] VITALS: BP 124/69; PULSE 60; RESP 12; TEMP 36.6; O2SAT 98
== END 2025-05-09 13:00 | disposition home or self-care (01) ==
PROVIDERS: Emergency Provider Emergency Medicine; PCP Internal Medicine
DX: S00.03XA Contusion of scalp, initial encounter (principal); S00.12XA Contusion of left eyelid and periocular area, initial encounter; M54.2 Cervicalgia; R51.9 Headache, unspecified; H57.12 Ocular pain, left eye; R07.81 Pleurodynia; R07.89 Other chest pain; Y04.2XXA Assault by strike against or bumped into by another person, initial encounter; Y93.9 Activity, unspecified; Y92.9 Unspecified place or not applicable; Y99.8 Other external cause status; F17.210 Nicotine dependence, cigarettes, uncomplicated
CPT/HCPCS: 70450; 70486; 71250; 72125; 99284

== ENCOUNTER → 2025-05-09 10:35 | Outpatient (BNV) | payer MEDICARE, SELFPAY | PROVIDERS: Emergency Provider Emergency Medicine; PCP Internal Medicine; Visit Provider Radiology Diagnostic Radiology | DX: R07.89 Other chest pain (principal); R22.0 Localized swelling, mass and lump, head; G44.309 Post-traumatic headache, unspecified, not intractable | CPT/HCPCS: 70486; 72125 ==

== ENCOUNTER 2025-06-22 10:04 | Outpatient (AMB) | payer MEDICARE, SELFPAY ==
--- NOTE | 2025-06-22 10:06 | A.OFFVIS_ITS ---
Intake Visit Reasons: PVR/UA/med review Intake Note: Patient is present for FOLLOW UP Urology Medication:TERAZOSIN,FINASTERIDE,TADALAFIL, SILDENAFIL Antibiotic Allergy:NONE Blood Thinner:ASPIRIN PVR 49MLS Jewel Blocker And Sawyer Required: No Accompanied by: Self / Same As Patient Allergies No Known Allergies (No Known Allergies*) Allergy (Verified 06/22/25 10:20) HPI Comments Details: Cruz navarro a is a pleasant male. He is a patient of Dr. Alonso. 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 Six-month follow-up PVR 50 cc Had been given oxybutynin for overactive bladder - 2022 T 545, 08/08 650 Erectile dysfunction Progressive Trouble maintaining erections On daily tadalafil 5 mg Elevated PSA Prior PSA high Prior negative biopsy PSA 9 PSA - 08/03 11.4, 08/06 7.0, 04/07 10.3 Reports increasing nocturia x3 with weakness of stream Current therapy includes tamsulosin and finasteride OBDULIO large prostate Bladder ultrasound 09/07 [facility] - pathology chronic prostatitis [facility] Medical History Epidermal cyst Abscess of hand, right Cellulitis Dog bite of extremity Acute coronary syndrome NSTEMI (non-ST elevated myocardial infarction) Smoking Essential hypertension Type 2 diabetes mellitus with unspecified complications Atherosclerotic cardiovascular disease HTN (hypertension) Diabetes Surgical History Hidradenitis suppurativa History of coronary artery stent placement S/P cardiac cath History of cardiac cath (~03/2019) Family History Father No problems noted. Mother Leukemia HTN (hypertension) Social History Household Members: Family and None Housing: Apartment Are you a primary home health care social worker to a significant other at home: No Do you presently have visiting nurse or other home services: No Alcohol intake: current Alcohol intake frequency: holidays/special occasions only Comment: refuses bed alarm Patient Tobacco Use Status: Current everyday Tobacco user Tobacco use type: Cigarette Cigarette Packs Per Day: 0.25 Second Hand Smoke Exposure: No Substance Use Type: Marijuana Advance Directives Date on File: 02/04/21 service: No Current occupational status: unemployed Gender identity: Male Assessment & Plan Assessment & Plan (1) Erectile dysfunction associated with type 2 diabetes mellitus: Code(s): E11.69 - Type 2 diabetes mellitus with other specified complication; N52.1 - Erectile dysfunction due to diseases classified elsewhere Category: Medical Plan Twelve month follow-up Refill tadalafil Orders: Orders Prostate Specific Antigen 12 Months N13.8 - Other obstructive and reflux uropathy, N40.1 - Benign prostatic hyperplasia with lower urinary tract symptoms Medications: Refilled tadalafil 5 mg PO DAILY 90 tabs 3RF sexual activity 90 days E11.69 - Type 2 diabetes mellitus with other specified complication, N52.1 - Erectile dysfunction due to diseases classified elsewhere Discontinued oxybutynin chloride Discontinued Reason: Patient Completed Course 5 mg PO BEDTIME PRN 30 tabs 2RF bladder spasms R33.9 - Retention of urine, unspecified, R35.1 - Nocturia, R39.15 - Urgency of urination finasteride Discontinued Reason: Doctor's Order 5 mg PO DAILY 90 days 90 tabs 1RF N13.8 - Other obstructive and reflux uropathy, N40.1 - Benign prostatic hyperplasia with lower urinary tract symptoms, R33.9 - Retention of urine, unspecified terazosin Discontinued Reason: Patient Completed Course 5 mg PO BEDTIME 90 days 90 caps 1RF N13.8 - Other obstructive and reflux uropathy, N40.1 - Benign prostatic hyperplasia with lower urinary tract symptoms, R35.0 - Frequency of micturition Patient Instructions: This note is constructed using voice recognition software. While every effort has been made to ensure accuracy delicatessen manager errors may have been included. Imaging studies, laboratory and physical exam results were discussed and reviewed in detail. No major barriers to patient understanding were identified. An opportunity to ask questions regarding the treatment plan was provided. All questions were answered. The patient expressed understanding and agreement with the above treatment plan. The patient is aware they should contact our office by phone for worsening of their current condition or the appearance of new urologic symptoms. Compliance is encouraged with any medications and followup testing that is ordered. It is a privilege to participate in the urologic care of your patient. If you have any questions or concerns regarding treatment for the above conditions, or other urologic issues, please do not hesitate to contact me. The office telephone contact is [phone]. Sincerely, Dr Don Del Rio MD, [facility] - Urology Compassionate Specialist Care for the Genitourinary System Coding Level of Care Code Est Pt Level 3 (83325) Diagnoses Erectile dysfunction associated with type 2 diabetes mellitus E11.69; N52.1
--- OUTSIDE RECORDS SUMMARY | 2025-06-22 10:07 | XMS_ITS | Clinical Summary ---
Author Organization [facility] ity Address [address] [place] [address] Care Team Providers Care Security Infrastructure Engineer Name Role Phone Unavailable Primary Care Provider [...] Vaccine ( - 2023-2 5 season) 2024 Depression Screening 11/15/2024 Influenza Vaccine (#1) 2025 RSV Immunization Adult Patie nts (1 - 1-dose 75+ series) 2035 HIB [...] age to complete this topic Meningococcal B Vaccine Aged Out No l onger eligible based on patient's age to complete this topic RSV Immunization Patients Un rolo 20 months Aged Out No longer eligible b ased on patient's age to complete this topic Varicella Vaccines Aged Out No longer eligible based on patient's age to complete this topic
== END 2025-06-22 10:35 | disposition home or self-care (01) ==
LOC: HO.HUSH 10:05
PROVIDERS: PCP Internal Medicine; Visit Provider Urology
DX: N40.1 Benign prostatic hyperplasia with lower urinary tract symptoms (principal); N13.8 Other obstructive and reflux uropathy; R35.1 Nocturia; N39.0 Urinary tract infection, site not specified; E11.69 Type 2 diabetes mellitus with other specified complication; N52.1 Erectile dysfunction due to diseases classified elsewhere
CPT/HCPCS: 99213

== ENCOUNTER → 2025-06-22 10:04 | Outpatient (BNVA) | payer MEDICARE, SELFPAY | PROVIDERS: PCP Internal Medicine; Visit Provider Urology | DX: E11.69 Type 2 diabetes mellitus with other specified complication (principal); N52.1 Erectile dysfunction due to diseases classified elsewhere; N40.1 Benign prostatic hyperplasia with lower urinary tract symptoms; N13.8 Other obstructive and reflux uropathy; R35.1 Nocturia; R39.15 Urgency of urination; R33.9 Retention of urine, unspecified; R35.0 Frequency of micturition | CPT/HCPCS: 51798; 81003; 99212 ==

== ENCOUNTER 2025-07-19 10:40 | Outpatient (REF) | payer MEDICARE, SELFPAY ==
--- OUTSIDE RECORDS SUMMARY | 2025-07-19 12:11 | XMS_ITS | Encounter Summary ---
Author Organization [employer] Address [address] [place] [address] Care Team Providers Care Staffing Rn Name Role Phone jA Dumont MD Primary Care Provide r Encounter Details Date Type Department Care Team ([facility] st Contact Info) Description 03/20/2025 Orders Only [facility] [address] [place], [place] [phone] Provider, MD Bladimir Social History Tobacco Use Types Packs/Day Years Used Date Smoking Tobacco: Some Days Cigarettes Passive Smoke Exposure: Current Smokeless Tobacco: Never Comments:X 30 yearsl; 2-3 ci garette daily; pt trying to quit Alcohol Use Standard Drinks/Week Comments Not Currently 0 (1 standard drink = 0.6 oz pur e alcohol) Depression Answer Date Recorded Patient Health Questionnaire-9 Score 3 03/08/2025 Patient Health Questionnaire-9 Score 3 03/08/2025 Last PHQ-9: Questionnaire Data Not on file 0 03/08/2025 Housing Stability Answer Date Recorded What is [...] Answer Date Recorded Patient Health Questionnaire-2 Score 1 03/08/2025 Internet Access Answer Date Recorded Internet Access Q1 I am not sure 03/08/2025 Internet Access Q2 Not on file 03/08/2025 Sex and Gender Information Value Date Recorded Sex Assigned at Male 09/14/2022 10:17 AM EDT Legal Sex Male 10:17 AM EDT Gender Identity Male 09/14/2022 10:17 AM EDT Sexual Orientation Straight 09/14/2022 10 :17 AM EDT documented as of this encounter Plan of Treatment Upcoming Encounters Date Type Department Care Team (Late st Contact Info) Description 08/09/2025 10:15 AM EDT Office Visit [facility] [address] [place] [address] Aj Dumont MD [address] [place] [address] 09/20/2025 2:00 PM EST Clinical Support [facility] [address] [place] [address] 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, SHEREE [address] [place] [address] documented as of this encounter Goals Goal Patient Goal Type Associated Problems Recent Progress Patient-Stated? Author Blood Pressure < 140/90 Blood Pressure Hypertension 109/72(2024 10:23 AM EDT) No Natanael Oquendo, DorcasD documented as of this encounter Procedures Procedure Name Priority Date/Time Associated Diagnosis Comments COLONOSCOPY Routine 11/03/2019 9:48 AM EST documented in this encounter Results * Hm Colonoscopy (11/03/2019 9:48 AM EST) Colonoscopy Normal Normal Narrative Mitzi Cross - 11/03/2019 9:48 AM EST Recommended 10 year follow up notes scanned in vp digital marketing social media and crm us Historical Provider HEALTH MAINTENANCE Edited Result - Final documented in this encounter Visit Diagnoses Not on filedocumented in this encounter Additional Health Concerns Assessment Noted Time PHQ-9 Depression Total Score: 3 03/08/20 25 10:40 AM EDT documented as of this encounter Care Teams Staffing Rn Relationship Specialty Start Date End Date Aj Dumont MD [address] [place] [address] PCP - General Internal Medicine 09/12/14 [facility] 10/17/24 documented as of this encounter
--- OUTSIDE RECORDS SUMMARY | 2025-07-19 12:11 | XMS_ITS | Encounter Summary ---
Author Organization [employer] Address [address] [place] [address] Care Team Providers Care Patternmaker Name Role Phone Aj Dumont MD Primary Care Provide r Reason for Visit * Reason Comments Med Refill Encounter Details Date Type Department Care Team ([facility] st Contact Info) Description 01/12/[address] [facility] [address] [place] [address] Aj Dumont MD [address] [place] [address] Chronic midline low back pain without sciatica [...] Description 08/09/2025 10:15 AM EDT Office Visit [facility] [address] [place] [address] Aj Dumont MD [address] [place] [address] 09/20/2025 2:00 PM EST Clinical Support [facility] [address] [place] [address] 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, RN [address] [place] [address] documented as of this encounter Goals Goal [...] documented as of this encounter Care Teams Patternmaker Relationship Specialty Start Date End Date Aj Dumont MD [address] [place] [address] PCP - General Internal Medicine 09/12/14 [facility] 10/17/24 documented as of this encounter
--- OUTSIDE RECORDS SUMMARY | 2025-07-19 12:11 | XMS_ITS | Encounter Summary ---
Author Organization [employer] Address [address] [place] [address] [address] [place] [address] Care Team Providers Care Legal Executive Assistant Name Role Phone Aj Dumont MD Primary Care Provide r Reason for Visit * Reason Comments Med Refill Encounter Details Date Type Department Care Team (Late st Contact Info) Description 08/14/2023 Refill [facility] [address] [place] [address] Aj Dumont MD [address] [place] [address] Type 2 diabetes mellitus without complication, with long-term current use of insulin ([facility]) Social History Tobacco Use Types Packs/Day [...] Description 08/09/2025 10:15 AM EDT Office Visit [facility] [address] [place], [place] [phone] Aj Dumont MD [address] [place] [address] 09/20/2025 2:00 PM EST Clinical Support [facility] [address] [place] [address] 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, RN [address] [place] [address] documented as of this encounter Goals Goal Patient Goal Type Associated Problems Recent Progress Patient-Stated? Author Blood Pressure < 140/90 Blood Pressure Hypertension 109/72(2024 10:23 AM EDT) Natanael Choi, DorcasD documented as of this encounter Visit Diagnoses Diagnosis Type 2 diabetes mellitus without complication, with long-term current use of insulin ([facility]) documented in this encounter Additional Health Concerns Assessment Noted Time PHQ-9 Depression Total Score: 6 01/29/20 23 2:25 PM EDT documented as of this encounter Care Teams Legal Executive Assistant Relationship Specialty Start Date End Date Aj Dumont MD [address] [place] [address] PCP - General Internal Medicine 09/12/14 [facility] 10/17/24 documented as of this encounter
--- OUTSIDE RECORDS SUMMARY | 2025-07-19 12:11 | XMS_ITS | Clinical Summary ---
Author Organization [facility] ity Address [address] [place] [address] Care Team Providers Care Covering And Lining Supervisor Name Role Phone Unavailable Primary Care Provider [...]
--- OUTSIDE RECORDS SUMMARY | 2025-07-19 12:11 | XMS_ITS | Encounter Summary ---
Author Organization [employer] Address [address] [facility] [address] [facility] [address] [place] [address] Care Team Providers Care Wild Life Manager Name Role Phone Aj Dumont MD Primary Care Provide r Reason for Visit * Reason Comments Med Refill Encounter Details Date Type Department Care Team ([facility] st Contact Info) Description 10/11/2024 Refill [facility] [address] [place] [address] Aj Dumont MD [address] [place] [address] Social History Tobacco Use Types Packs/Day Years [...] Description 08/09/2025 10:15 AM EDT Office Visit [facility] [address] [place] [address] Aj Dumont MD [address] [place] [address] 09/20/2025 2:00 PM EST Clinical Support [facility] [address] [place], [place] [phone] 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, RN [address] [place], [place] [phone] documented as of this encounter Goals Goal [...] documented as of this encounter Care Teams Wild Life Manager Relationship Specialty Start Date End Date Aj Dumont MD [address] [place] [address] PCP - General Internal Medicine 09/12/14 [facility] 10/17/24 documented as of this encounter
--- OUTSIDE RECORDS SUMMARY | 2025-07-19 12:11 | XMS_ITS | Encounter Summary ---
Author Organization [employer] Address [address] [place] [address] [address] [place] [address] Care Team Providers Care Supervisor Abattoir Name Role Phone Aj Dumont MD Primary Care Provide r Reason for Visit * Reason Comments Med Refill Encounter Details Date Type Department Care Team (Late st Contact Info) Description 08/02/2023 Refill [facility] [address] [place] [address] Aj Dumont MD [address] [place], [place] [phone] Chronic midline low back pain without sciatica [...] 08/09/2025 10:15 AM EDT Office Visit [facility] [address] [place] [address] Aj Dumont MD [address] [place] [address] 09/20/2025 2:00 PM EST Clinical Support [facility] [address] [place] [address] 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, RN [address] [place] [address] documented as of this encounter Goals Goal [...] documented as of this encounter Care Teams Supervisor Abattoir Relationship Specialty Start Date End Date Aj Dumont MD [address] [place] [address] PCP - General Internal Medicine 09/12/14 [facility] 10/17/24 documented as of this encounter
--- OUTSIDE RECORDS SUMMARY | 2025-07-19 12:11 | XMS_ITS | Encounter Summary ---
Author Organization [employer] Address [address] [facility] 7t [place] [address] Care Team Providers Care Bag Tester Name Role Phone Aj Dumont MD Primary Care Provide r Reason for Visit * Reason Comments Med Refill Encounter Details Date Type Department Care Team ([facility] st Contact Info) Description 06/28/2024 Refill [facility] [address] [place] [address] Aj Dumont MD [address] [place] [address] Chronic midline low back pain without sciatica [...] Description 08/09/2025 10:15 AM EDT Office Visit [facility] [address] [place] [address] Aj Dumont MD [address] [place] [address] 09/20/2025 2:00 PM EST Clinical Support [facility] [address] [place] [address] 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, RN [address] [place] [address] documented as of this encounter Goals Goal [...] documented as of this encounter Care Teams Bag Tester Relationship Specialty Start Date End Date Aj Dumont MD [address] [place] [address] PCP - General Internal Medicine 09/12/14 [facility] 10/17/24 documented as of this encounter
--- OUTSIDE RECORDS SUMMARY | 2025-07-19 12:11 | XMS_ITS | Encounter Summary ---
Author Organization [employer] Address [address] [facility] 7t [place] [address] Care Team Providers Care Support Technician Name Role Phone Aj Dumont MD Primary Care Provide r Reason for Visit * Reason Comments Med Refill Encounter Details Date Type Department Care Team ([facility] st Contact Info) Description 04/10/2025 Refill [facility] MEDICINE [address] [place] [address] Litzy Levin MD 505 [place] [address] Chronic midline low back pain without sciatica [...] 08/09/2025 10:15 AM EDT Office Visit [facility] MEDICINE [address] [place] [address] Aj Dumont MD 230 [place] [address] 09/20/2025 2:00 PM EST Clinical Support [facility]S 505 [place] [address] 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, SHEREE 505 [place] [address] documented as of this encounter Goals Goal Patient Goal Type Associated Problems Recent Progress Patient-Stated? Author Blood Pressure < 140/90 Blood Pressure Hypertension 109/72(2024 10:23 AM EDT) No Natanael Oquendo, PharmD documented as of this encounter Visit Diagnoses Diagnosis Chronic midline low back pain without sciatica documented in this encounter Additional Health Concerns Assessment Noted Time PHQ-9 Depression Total Score: 3 03/08/20 10:40 AM EDT documented as of this encounter Care Teams Support Technician Relationship Specialty Start Date End Date Aj Dumont MD 230 [place] [address] PCP - General Internal Medicine 09/12/14 [facility] 10/17/24 documented as of this encounter
--- OUTSIDE RECORDS SUMMARY | 2025-07-19 12:11 | XMS_ITS | Encounter Summary ---
Author Organization [employer] Address [address] [facility] 7t [place] [address] Care Team Providers Care Supervisor Painting Department Name Role Phone Aj Dumont MD Primary Care Provide r Reason for Visit * Reason Comments Med Refill Encounter Details Date Type Department Care Team ([facility] st Contact Info) Description 04/11/2025 Refill [facility] MEDICINE 230 [place] [address] Litzy Levin MD 505 [place] [address] Chronic midline low back pain without sciatica [...] Description 08/09/2025 10:15 AM EDT Office Visit [facility] MEDICINE 230 [place] [address] Aj Dumont MD 230 [place] [address] 09/20/2025 2:00 PM EST Clinical Support [facility] CH[facility] MED & PEDS 505 [place] [address] 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, SHEREE 505 [place] [address] documented as of this encounter Goals Goal [...] as of this encounter Care Teams Supervisor Painting Department Relationship Specialty Start Date End Date Aj Dumont MD 230 [place] [address] PCP - General Internal Medicine 09/12/14 [facility] 10/17/24 documented as of this encounter
--- OUTSIDE RECORDS SUMMARY | 2025-07-19 12:11 | XMS_ITS | Encounter Summary ---
Author Organization [employer] Address [address] [facility] 7t [place] [address] Care Team Providers Care Corporate Giving Manager Name Role Phone Aj Dumont MD Primary Care Provide r Reason for Visit * Reason Comments Med Refill Encounter Details Date Type Department Care Team ([facility] st Contact Info) Description 12/19/2024 Refill [facility] [address] [place] [address] Aj Dumont MD 230 [place] [address] Chronic midline low back pain without sciatica [...] RN - 12/25/2024 9:11 AM EST [address]RE[address] CAR MECHANIC Tier would you like this patient to be? Tier 1 = HIGH RISK, Monthly STREET CAR MECHANIC visits Tier 2 = MODerate RISK, Q3 Month visits Tier 3 = LOW RISK = Q4-6 month visits documented in this encounter Plan of Treatment Upcoming Encounters Date Type Department Care Team (Late st Contact Info) Description 08/09/2025 10:15 AM EDT Office Visit [facility] MEDICINE 230 [place] [address] Aj Dumont MD 230 [place] [address] 09/20/2025 2:00 PM EST Clinical Support [facility] CHC MED & PEDS 505 [place] [address] 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 RN 505 [place] [address] documented as of this encounter Goals Goal [...] documented as of this encounter Care Teams Corporate Giving Manager Relationship Specialty Start Date End Date Aj Dumont MD [address] [place] [address] PCP - General Internal Medicine 09/12/14 [facility] 10/17/24 documented as of this encounter
--- OUTSIDE RECORDS SUMMARY | 2025-07-19 12:11 | XMS_ITS | Encounter Summary ---
Author Organization [employer] Address [address] [facility] 7t [place] [address] Care Team Providers Care General Lithographic Worker Name Role Phone Aj Dumont MD Primary Care Provide r Reason for Visit * Reason Comments Med Refill Encounter Details Date Type Department Care Team ([facility] st Contact Info) Description 02/25/2024 Refill [facility] CHC MED & PEDS [address] [place] [address] Aj Dumont MD 230 [place] [address] Chronic midline low back pain without sciatica [...] Description 08/09/2025 10:15 AM EDT Office Visit [facility] MEDICINE 230 [place] [address] Aj Dumont MD 230 [place] [address] 09/20/2025 2:00 PM EST Clinical Support [facility] CHC MED & PEDS 505 [place] [address] 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, RN 505 [place] [address] documented as of this encounter Goals Goal [...] documented as of this encounter Care Teams General Lithographic Worker Relationship Specialty Start Date End Date Aj Dumont MD [address] [place] [address] PCP - General Internal Medicine 09/12/14 [facility] 10/17/24 documented as of this encounter
--- OUTSIDE RECORDS SUMMARY | 2025-07-19 12:11 | XMS_ITS | Encounter Summary ---
Author Organization [employer] Address [address] [place] [address] 7t [place] [address] Care Team Providers Care Geothermal Sheet Metal Worker Name Role Phone Aj Dumont MD Primary Care Provide r Reason for Visit * Reason Comments Med Refill Encounter Details Date Type Department Care Team (Late st Contact Info) Description 03/29/2023 Refill [facility] CHC MED & PEDS [address] [place] [address] Aj Dumont MD 230 [place] [address] Chronic midline low back pain without sciatica [...] Description 08/09/2025 10:15 AM EDT Office Visit [facility] MEDICINE 230 [place] [address] jA Dumont MD 230 [place] [address] 09/20/2025 2:00 PM EST Clinical Support [facility] CHC MED & PEDS 505 [place] [address] 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, RN 505 [place], [place] [id number] documented as of this encounter Visit Diagnoses Diagnosis Chronic midline low back pain without sciatica documented in this encounter Additional Health Concerns Assessment Noted Time PHQ-9 Depression Total Score: 6 01/29/20 23 2:25 PM EDT documented as of this encounter Care Teams Geothermal Sheet Metal Worker Relationship Specialty Start Date End Date Aj Dumont MD 230 [place] [address] PCP - General Internal Medicine 09/12/14 [facility] Department 10/17/24 documented as of this encounter
--- OUTSIDE RECORDS SUMMARY | 2025-07-19 12:11 | XMS_ITS | Clinical Summary ---
Author Organization Loc[facility] Address [address] [address] Phone Care Team Providers Care Road Builder Name Role Phone Aj Alonso MD Primary Care Provide r Allergies No known active allergies Medications blood sugar diagnostic (GLUCOSE BLOOD) Strp strips TEST BLOOD SUGAR TWICE DAILY DIRECTED 3 Active blood-glucose Misc meter TEST BLOOD SUGAR TWICE DAILY DIRECTED 3 Active lancets Misc TEST BLOOD SUGAR TWICE DAILY DIRECTED 3 Active amLODIPine (NORVASC) 5 MG tablet Take 5 mg by mouth every morning. 3 Active aspirin 81 MG EC tablet Take 81 mg by mouth nightly at bedtime. at bedtime. 3 Active atorvastatin (LIPITOR) 80 MG tablet Take 80 mg by mouth nightly at bedtime. at bedtime. 3 Active celecoxib (CELEBREX) 100 MG capsule Take 1 capsule by mouth 2 (two) times a day. 3 Active HYDROcodone-ac etaminophen (NORCO) 5-325 mg per tablet take 1 tablet by mouth every 4 to 6 hours as needed for pain 3 Active LANTUS SOLOSTAR U-100 INSULIN 100 unit/mL (3 mL) InPn injection pen INJECT 50 UNITS SUBCUTANEOUSLY ONCE DAILY 3 Active insulin glargine (LANTUS SOLOSTAR U-100 INSULIN) 100 unit/mL (3 mL) InPn injection pen INJECT 50 UNITS SUBCUTANEOUSLY ONCE DAILY 3 Active ONETOUCH DELICA PLUS LANCET 33 gauge Misc TEST BLOOD SUGAR TWICE DAILY DIRECTED 3 Active lisinopril (PRINIVIL,ZEST RIL) 40 MG tablet Take 1 tablet by mouth every morning. 3 Active metFORMIN (GLUCOPHAGE) 1000 MG tablet TAKE 1 TABLET BY MOUTH TWICE DAILY IN THE MORNING AND IN THE EVENING 3 Active morphine (MS CONTIN) 30 MG ER tablet TAKE 1 TABLET BY MOUTH TWICE DAILY DO NOT BREAK, CRUSH, DISSOLVE OR CHEW 3 Active omega-3 acid ethyl esters (LOVAZA) 1 gram capsule TAKE 1 CAPSULE BY MOUTH THREE TIMES DAILY IN THE MORNING, AT NOON, AND IN THE EVENING 3 Active omeprazole (PRILOSEC) 20 MG capsule TAKE 1 CAPSULE BY MOUTH EVERY MORNING DO NOT BREAK, CRUSH, DISSOLVE OR CHEW 3 Active oxyCODONE-acet aminophen (PERCOCET) 5-325 mg per tablet Take 1 tablet by mouth every 8 (eight) hours as needed. 3 Active VIAGRA 100 mg tablet TAKE 1 TABLET 1 HOUR BEFORE SEXUAL RELATIONS ONCE DAILY NEEDED. 3 Active terazosin (HYTRIN) 5 MG capsule Take 5 mg by mouth nightly at bedtime. 3 Active BRILINTA 90 mg Tab TAKE 1 TABLET BY MOUTH TWICE DAILY IN THE MORNING AND IN THE EVENING 3 Active Social History Tobacco Use Types Packs/Day Years Used Date Smoking Tobacco: Every Day Cigarettes Smokeless Tobacco: Never Comments:Marijuana smoking d aily Education Answer Date Recorded Are you interested in more education? Not on dc e 07/29/2023 Are you concerned about learning? Not on file 07/29/2023 No 07/29/2023 No 07/29/2023 Digital Access Answer Date Recorded No 07/29/2023 No 07/29/2023 Reliable internet access at home? Not on file 07/29/2023 Device with a working camera? Not on file Sex and Gender Information Value Date Recorded Sex Assigned at Not on file Legal Sex Male 10:34 PM EDT Gender Identity Not on file Sexual Orientation Not on file Last Filed Vital Signs Vital Sign Reading Time Taken Comments Blood Pressure 146/77 09/16/2023 10:54 AM EDT reported to provider Pulse 66 09/16/2023 10:54 AM EDT Temperature - - Respiratory Rate - - Oxygen Saturation 100% 09/16/2023 10: 54 AM EDT Inhaled Oxygen Concentration - - Weight 95.3 kg (210 lb) 09/16/2023 10:5 4 AM EDT Height 179.1 cm (5' 10.5 ) 09/16/2023 1 0:54 AM EDT Body Mass Index 29.71 09/16/2023 10:54 AM EDT Plan of Treatment Health Maintenance Due Date Last Done Comments Adult Td,Tdap Booster 1960 CREATININE LEVEL 1960 LIPID PANEL 1960 POTASSIUM LEVEL 1960 DEPRESSION SCREENING 1972 SMOKING Hx and SMOKELESS TOB ACCO SCREENING 1973 HEPATITIS C SCREENING 1978 HIV ONE-TIME SCREENING (18-6 5 YEARS) 1978 PNEUMOCOCCAL VACCINES (50+ y ears) (1 of 2 - PCV) 1979 SCREENING FOR DIABETES 1995 COLOGUARD 2005 COLONOSCOPY 2005 COLORECTAL CANCER SCREENING 2005 FIT TEST 2005 FOBT 2005 SIGMOIDOSCOPY 2005 VIRTUAL COLONOSCOPY 2005 ZOSTER VACCINES (1 of 2) 2010 ABDOMINAL AORTIC ANEURYSM (A AA) SCREENING 2025 INFLUENZA VACCINE (#1) 2025 COVID-19 VACCINE (1 - 2023-2 5 season) 2025 RSV VACCINE (1 - 1-dose 75+ series) 2035 HEPATITIS A VACCINES Aged Out No long er eligible based on patient's age to complete this topic HIB VACCINES Aged Out No longer eligi ble based on patient's age to complete this topic MENINGOCOCCAL VACCINES (ACWY) Aged Out No longer eligible based on patient's age to complete this topic MENINGOCOCCAL VACCINES (B) Aged Out N o longer eligible based on patient's age to complete this topic Medical Devices Not on file Insurance [address] [address] [place] [address] ONE [employer] MEDICARE REPLACEMENT MEDICARE PART A & B [facility] CARE MEDICARE REPLACEMENT MEDICARE PART A & B MEDICARE PART A & B MEDICARE PART A & B MEDICARE PART A & B CARE MEDICARE REPLACEMENT MEDICARE PART A & B Care Teams Road Builder Relationship Specialty Start Date End Date Aj Alonso MD [address] [place] [address] [address] CLAU Johansen [phone] [email or web address] PCP - General Internal Medicine 07/28/23 Additional Source Comments The information contained in this document represents components of the legal health record. It is not the complete legal health record.Located Within [facility]
--- OUTSIDE RECORDS SUMMARY | 2025-07-19 12:11 | XMS_ITS | Encounter Summary ---
Author Organization [employer] Address 75 [facility] 7t [place] [address] Care Team Providers Care Executive Coach Name Role Phone Aj Dumont MD Primary Care Provide r Reason for Visit * Reason Comments Med Refill Encounter Details Date Type Department Care Team ([facility] st Contact Info) Description 12/18/2024 Refill C [facility] [address] [place] [address] Aj Dumont MD 230 [place] [address] Chronic midline low back pain without sciatica [...] Description 08/09/2025 10:15 AM EDT Office Visit [facility] MEDICINE 230 [place] [address] Aj Dumont MD [address] [place] [address] 09/20/2025 2:00 PM EST Clinical Support [facility] CHC MED & PEDS 505 [place] [address] gNuyen Ocasio, SHEREE 505 [place] [address] documented as of this encounter Goals Goal [...] documented as of this encounter Care Teams Executive Coach Relationship Specialty Start Date End Date Aj Dumont MD [address] [place] [address] PCP - General Internal Medicine 09/12/14 [facility] 10/17/24 documented as of this encounter
--- OUTSIDE RECORDS SUMMARY | 2025-07-19 12:11 | XMS_ITS | Encounter Summary ---
Author Organization [employer] Address 75 [facility] 7t [place] [address] Care Team Providers Care International Marketing Coordinator Name Role Phone Aj Dumont MD Primary Care Provide r Reason for Visit * Reason Onset Date Comments Med Refill 09/29/2023 Encounter Details Date Type Department Care Team ([facility] st Contact Info) Description 09/29/2023 Telephone [facility] MEDICINE [address] [place] [address] Aj Dumont MD 230 [place] [address] Med Refill Social History Tobacco Use Types [...] Description 08/09/2025 10:15 AM EDT Office Visit [facility] MEDICINE [address] [place] [address] Aj Dumont MD [address] [place] [address] 09/20/2025 2:00 PM EST Clinical Support [facility] CHC MED & PEDS 505 [place] [address] 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, SHEREE 505 [place] [address] documented as of this encounter Goals Goal [...] documented as of this encounter Care Teams International Marketing Coordinator Relationship Specialty Start Date End Date Aj Dumont MD [address] [place] [address] PCP - General Internal Medicine 09/12/14 [facility] 10/17/24 documented as of this encounter
--- OUTSIDE RECORDS SUMMARY | 2025-07-19 12:11 | XMS_ITS | Encounter Summary ---
Author Organization [employer] Address 75 [facility] 7t [place] [address] Care Team Providers Care Insurance Coder Name Role Phone Aj Dumont MD Primary Care Provide r Reason for Visit * Reason Comments Med Refill Encounter Details Date Type Department Care Team ([facility] st Contact Info) Description 06/28/[address] [facility] CHC MED & PEDS [address] [place] [address] Aj Dumont MD 230 [place] [address] Chronic midline low back pain without sciatica [...] Description 08/09/2025 10:15 AM EDT Office Visit [facility] MEDICINE 230 [place] [address] Aj Dumont MD 230 [place] [address] 09/20/2025 2:00 PM EST Clinical Support [facility] CHC MED & PEDS 505 [place] [address] 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, RN 505 [place] [address] documented as of this encounter Goals Goal [...] as of this encounter Care Teams Insurance Coder Relationship Specialty Start Date End Date Aj Dumont MD 230 [place] [address] PCP - General Internal Medicine 09/12/14 [facility] 10/17/24 documented as of this encounter
--- OUTSIDE RECORDS SUMMARY | 2025-07-19 12:11 | XMS_ITS | Encounter Summary ---
Author Organization [email or web address] Address 75 [facility] 7t [place] [address] Care Team Providers Care Inspection Manager Name Role Phone Aj Dumont MD Primary Care Provide r Reason for Visit * Reason Comments Med Refill Encounter Details Date Type Department Care Team ([facility] st Contact Info) Description 09/30/2023 Refill [facility] MEDICINE 230 [place] [address] Loly Johnson MD 230 [place] [address] Chronic midline low back pain without sciatica [...] Description 08/09/2025 10:15 AM EDT Office Visit [facility] MEDICINE [address] [place] [address] Aj Dumont MD 230 [place] [address] 09/20/2025 2:00 PM EST Clinical Support [facility] CHC MED & PEDS 505 [place] [address] 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, RN 505 [place] [address] documented as of this encounter Goals Goal [...] documented as of this encounter Care Teams Inspection Manager Relationship Specialty Start Date End Date Aj Dumont MD [address] [place] [address] PCP - General Internal Medicine 09/12/14 [facility] 10/17/24 documented as of this encounter
--- OUTSIDE RECORDS SUMMARY | 2025-07-19 12:11 | XMS_ITS | Encounter Summary ---
Author Organization [employer] Address [address] [facility] 7t [place] [address] Care Team Providers Care Sulfur Chloride Operator Name Role Phone Aj Dumont MD Primary Care Provide r Reason for Visit * Reason Comments Med Refill Encounter Details Date Type Department Care Team ([facility] st Contact Info) Description 02/29/2024 Refill [facility] CHC MED & PEDS [address] [place] [address] Aj Dumont MD 230 [place] [address] Chronic midline low back pain without sciatica [...] Description 08/09/2025 10:15 AM EDT Office Visit [facility] MEDICINE 230 [place] [address] Aj Dumont MD [address] [place] [address] 09/20/2025 2:00 PM EST Clinical Support [facility] CHC MED & PEDS 505 [place] [address] 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, RN 505 [place] [address] documented as of this encounter Goals Goal [...] documented as of this encounter Care Teams Sulfur Chloride Operator Relationship Specialty Start Date End Date Aj Dumont MD [address] [place] [address] PCP - General Internal Medicine 09/12/14 [facility] 10/17/24 documented as of this encounter
--- OUTSIDE RECORDS SUMMARY | 2025-07-19 12:11 | XMS_ITS | Encounter Summary ---
Author Organization [employer] Address [address] [place] [address] 7t [place] [address] Care Team Providers Care Cutlery Grinder Name Role Phone Aj Dumont MD Primary Care Provide r Reason for Visit * Reason Comments Med Refill Encounter Details Date Type Department Care Team (Late st Contact Info) Description 08/16/2023 Refill [facility] MEDICINE 230 [place] [address] Aj Dumont MD [address] [place], [place] [phone] Reflux gastritis; Mixed hyperlipidemia Social History Tobacco [...] Department Care Team (Late Contact Info) Description 08/09/2025 10:15 AM EDT Office Visit [facility] MEDICINE [address] [place] [address] Aj Dumont MD [address] [place] [address] 09/20/2025 2:00 PM EST Clinical Support [facility] CHC MED & PEDS [address] [place] [address] 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, RN [address] [place] [address] documented as of this encounter Goals Goal [...] documented as of this encounter Care Teams Cutlery Grinder Relationship Specialty Start Date End Date Aj Dumont MD [address] [place] [address] PCP - General Internal Medicine 09/12/14 [facility] 10/17/24 documented as of this encounter
--- OUTSIDE RECORDS SUMMARY | 2025-07-19 12:11 | XMS_ITS | Encounter Summary ---
Author Organization [employer] Address 75 [facility] 7t [place] [address] Care Team Providers Care Telescope Repairer Name Role Phone Aj Dumont MD Primary Care Provide r Reason for Visit * Reason Comments Med Refill Encounter Details Date Type Department Care Team ([facility] st Contact Info) Description 03/13/2025 Refill [facility] [address] [place] [address] Aj Dumont MD 230 [place] [address] Chronic midline low back pain without sciatica [...] Telephone Encounter - 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 RN - 03/22/2025 1:37 PM EDT .What FIELD REPRESENTATIVES DIRECTOR Tier would you like this patient to be? Tier 1 = HIGH RISK, Monthly FIELD REPRESENTATIVES DIRECTOR visits Tier 2 = MODerate RISK, Q3 Month visits Tier 3 = LOW RISK = Q4-6 month visits documented in this encounter Plan of Treatment Upcoming Encounters Date Type Department Care Team (Late st Contact Info) Description 08/09/2025 10:15 AM EDT Office Visit [facility] MEDICINE 230 [place] [address] Aj Dumont MD [address] [place] [address] 09/20/2025 2:00 PM EST Clinical Support [facility] CHC MED & PEDS 505 [place] [address] 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 RN 505 [place] [address] documented as of this encounter Goals Goal [...] documented as of this encounter Care Teams Telescope Repairer Relationship Specialty Start Date End Date Aj Dumont MD 230 [place] [address] PCP - General Internal Medicine 09/12/14 [facility] 10/17/24 documented as of this encounter
--- OUTSIDE RECORDS SUMMARY | 2025-07-19 12:11 | XMS_ITS | Encounter Summary ---
Author Organization [employer] Address 75 [facility] 7t [place] [address] Care Team Providers Care Commercial Banker Name Role Phone Aj Dumont MD Primary Care Provide r Reason for Visit * Reason Comments Med Refill Encounter Details Date Type Department Care Team ([facility] st Contact Info) Description 12/15/2023 Refill [facility] MED & PEDS [address] [place] [address] Aj Dumont MD 230 [place] [address] Type 2 diabetes mellitus without complication, unspecified whether rat exterminator insulin use ([facility]) Social History Tobacco Use Types Packs/Day Years Used Date Smoking Tobacco: Some Days Cigarettes Passive Smoke Exposure: Current Smokeless Tobacco: Never Alcohol Use Standard Drinks/Week Comments Not Currently 0 (1 standard drink = 0.6 oz pur e alcohol) Depression Answer Date Recorded Patient Health Questionnaire-9 Score 6 01/28/2023 Housing Stability Answer Date Recorded What is your housing situation today? I have genevievedo [place] 08/30/[address] you [...] Description 08/09/2025 10:15 AM EDT Office Visit [facility] MEDICINE 230 [place] [address] Aj Dumont MD [address] [place] [address] 09/20/2025 2:00 PM EST Clinical Support [facility] CHC MED & PEDS 505 [place] [address] 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, SHEREE [address] [place] [address] documented as of this encounter Goals Goal Patient Goal Type Associated Problems Recent Progress Patient-Stated? Author Blood Pressure < 140/90 Blood Pressure Hypertension 109/72(2024 10:23 AM EDT) No Natanael Oquendo, PharmD documented as of this encounter Visit Diagnoses Diagnosis Type 2 diabetes mellitus without complication, unspecified whether rat exterminator insulin use ([facility]) documented in this encounter Additional Health Concerns Assessment Noted Time PHQ-9 Depression Total Score: 6 01/29/20 23 2:25 PM EDT documented as of this encounter Care Teams Commercial Banker Relationship Specialty Start Date End Date Aj Dumont MD [address] [place] [address] PCP - General Internal Medicine 09/12/14 [facility] 10/17/24 documented as of this encounter
--- OUTSIDE RECORDS SUMMARY | 2025-07-19 12:11 | XMS_ITS | Encounter Summary ---
Author Organization [employer] Address [address] [facility] [address] [place] [address] Care Team Providers Care Data Processing Mechanic Name Role Phone Aj Dumont MD Primary Care Provide r Reason for Visit * Reason Comments Med Refill Encounter Details Date Type Department Care Team ([facility] st Contact Info) Description 10/25/2023 Refill [facility] [address] [place] [address] Aj Dumont MD [address] [place] [address] Chronic midline low back pain without sciatica [...] Description 08/09/2025 10:15 AM EDT Office Visit [facility] [address] [place] [address] Aj Dumont MD [address] [place] [address] 09/20/2025 2:00 PM EST Clinical Support [facility] [address] [place] [address] 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, RN [address] [place] [address] documented as of this encounter Goals Goal [...] documented as of this encounter Care Teams Data Processing Mechanic Relationship Specialty Start Date End Date Aj Dumont MD [address] [place] [id number] PCP - General Internal Medicine 09/12/14 [facility] 10/17/24 documented as of this encounter
--- OUTSIDE RECORDS SUMMARY | 2025-07-19 12:11 | XMS_ITS | Encounter Summary ---
Author Organization [employer] Address [address] [facility] [address] [place] [address] Care Team Providers Care Track Laying Machine Operator Name Role Phone Aj Dumont MD Primary Care Provide r Reason for Visit * Reason Onset Date Comments Referral 12/01/2023 Encounter Details Date Type Department Care Team ([facility] st Contact Info) Description 12/01/2023 Telephone [facility] MEDICINE [address] [place] [address] Aj Dumont MD [address] [place] [address] Referral Social History Tobacco Use Types Packs/Day [...] States was unable to do it at [facility] [place] [place] due to the machine being small . Was advice to get a referral [facility] . Please call pt to clarify at phone #[phone]. documented in this encounter Plan of Treatment Upcoming Encounters Date Type Department Care Team (Late st Contact Info) Description 08/09/2025 10:15 AM EDT Office Visit [facility] MEDICINE [address] [place] [address] Aj Dumont MD [address] [place] [address] 09/20/2025 2:00 PM EST Clinical Support [facility] [address] [place] [address] 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, SHEREE [address] [place] [address] documented as of this encounter Goals Goal [...] documented as of this encounter Care Teams Track Laying Machine Operator Relationship Specialty Start Date End Date Aj Dumont MD [address] [place] [address] PCP - General Internal Medicine 09/12/14 [facility] 10/17/24 documented as of this encounter
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
--- OUTSIDE RECORDS SUMMARY | 2025-07-19 12:12 | XMS_ITS | Encounter Summary ---
Author Organization [employer] Address [address] [facility] [address]t [place] [address] Care Team Providers Care Channel Worker Name Role Phone Aj uDmont MD Primary Care Provide r Encounter Details Date Type Department Care Team (Late st Contact Info) Description 11/24/2022 Orders Only [facility] MEDICINE [address] [place], [place] [phone] Shae Sofia LPN Social History Tobacco Use [...] Description 08/09/2025 10:15 AM EDT Office Visit [facility] MEDICINE [address] [place], [place] [phone] Aj Dumont MD [address] [place], [place] [phone] 09/20/2025 2:00 PM EST Clinical Support [facility] MED & PEDS [address] [place] [address] 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, SHEREE [address] [place] [address] documented as of this encounter Visit Diagnoses Not on filedocumented in this encounter Care Teams Channel Worker Relationship Specialty Start Date End Date Aj Dumont MD [address] [place] [address] PCP - General Internal Medicine 09/12/14 [facility] 10/17/24 documented as of this encounter
--- OUTSIDE RECORDS SUMMARY | 2025-07-19 12:12 | XMS_ITS | Encounter Summary ---
Author Organization [employer] Address [address] [facility] [address] [place] [address] Care Team Providers Care Heel Slugger Name Role Phone Aj Dumont MD Primary Care Provide r Reason for Visit * Reason Onset Date Comments Appointment Request 06/21/2024 Encounter Details Date Type Department Care Team ([facility] st Contact Info) Description 06/21/2024 Telephone [facility] MEDICINE [address] [place] [address] Aj Dumont MD [address] [place] [address] Appointment Request Social History Tobacco Use Types [...] is your housing situation today? I have gneevieve boston 03/16/[address] you [...] Description 08/09/2025 10:15 AM EDT Office Visit [facility] MEDICINE [address] [place] [address] Aj Dumont MD [address] [place] [address] 09/20/2025 2:00 PM EST Clinical Support [facility] MED & PEDS [address] [place] [address] 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, SHEREE [address] [place] [address] documented as of this encounter Goals Goal [...] documented as of this encounter Care Teams Heel Slugger Relationship Specialty Start Date End Date Aj Dumont MD [address] [place] [address] PCP - General Internal Medicine 09/12/14 [facility] 10/17/24 documented as of this encounter
--- OUTSIDE RECORDS SUMMARY | 2025-07-19 12:12 | XMS_ITS | Encounter Summary ---
Author Organization [employer] Address [address] [facility] [address] [place] [address] Care Team Providers Care Skiver Blockers Name Role Phone Aj Dumont MD Primary Care Provide r Encounter Details Date Type Department Care Team ([facility] st Contact Info) Description 01/27/2023 Orders Only [facility] CHC MED & PEDS [address] [place] [address] Jennifer Knott LPN Social History Tobacco Use [...] PM EDT documented as of this encounter Functional Status * Over the past 2 weeks, how often have you been bothered by any of the following problems? Question Answer Date of Assessment Author Patient Health Questionnaire-2 Score 2 01/13 2:25 PM EDIsi Bain [place] * Over the past 2 weeks, how often have you been bothered by any of the following problems? Question Answer Date of Assessment Author Little interest or pleasure in doing things Several days 01/28/2023 2:25 PM Isi Monatgue [place] Feeling down, depressed, or hopeless Several days 01/28/2023 2:25 PM Isi Montague [place] Trouble falling or staying asleep, or sleeping too much Several days 01/28/2023 2:25 PM Brian Montague [place] Feeling tired or having celina le energy Several days 01/28/2023 2:25 PM Isi Montague MA Poor appetite or overeating Several days 01/28/2023 2: 25 PM Isi Montague MA Feeling bad about yourself - or that you are a failure or have let yourself or your family down Several days 01/28/2023 2:25 PM Isi Montague [place] Trouble concentrating on things, such as reading the newspaper or watching television Not at all 01/28/2023 2:25 PM Isi Montague MA Moving or speaking so slowly that other people could have noticed? Or the opposite - being so fidgety or restless that you have been moving around a lot more than usual. Not at all 01/28/2023 2:25 PM Isi Montague MA Thoughts that you would be better off or hurting yourself in some way Not at all 01/28/2023 2:25 PM Isi Montague M A Patient Health Questionnaire -9 Score 6 01/28/2023 2:25 PM Isi Montague MA documented as of this encounter Plan of Treatment Upcoming Encounters Date Type Department Care Team (Late st Contact Info) Description 08/09/2025 10:15 AM EDT Office Visit [facility] MEDICINE [address] [place] [address] Aj Dumont MD [address] [place] [address] 09/20/2025 2:00 PM EST Clinical Support [facility] CHC MED & PEDS [address] [place] [address] 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, SHEREE [address] [place] [address] documented as of this encounter Visit Diagnoses Not on filedocumented in this encounter Care Teams Skiver Blockers Relationship Specialty Start Date End Date Aj Dumont MD [address] [place] [phone] PCP - General Internal Medicine 09/12/14 [facility] 10/17/24 documented as of this encounter
--- OUTSIDE RECORDS SUMMARY | 2025-07-19 12:12 | XMS_ITS | Encounter Summary ---
Author Organization [employer] Address [address] [place] [address] 7t [place] [address] Care Team Providers Care Putty Tinter Maker Name Role Phone Aj Dumont MD Primary Care Provide r Reason for Visit * Reason Comments Med Refill Encounter Details Date Type Department Care Team (Late st Contact Info) Description 12/17/2022 Refill [facility] MEDICINE 230 [place] [address] Aj Dumont MD 230 [place] [address] Chronic midline low back pain without sciatica [...] Description 08/09/2025 10:15 AM EDT Office Visit [facility] MEDICINE [address] [place] [address] Aj Dumont MD [address] [place] [address] 09/20/2025 2:00 PM EST Clinical Support [facility] CHC MED & PEDS 505 [place] [address] 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, RN 505 [place] [address] documented as of this encounter Visit Diagnoses Diagnosis Chronic midline low back pain without sciatica documented in this encounter Care Teams Putty Tinter Maker Relationship Specialty Start Date End Date Aj Dumont MD [address] [place] [address] PCP - General Internal Medicine 09/12/14 [facility] 10/17/24 documented as of this encounter
--- OUTSIDE RECORDS SUMMARY | 2025-07-19 12:12 | XMS_ITS | Encounter Summary ---
Author Organization [employer] Address [address] [facility] 7t [place] [address] Care Team Providers Care Military Nurse Name Role Phone Aj Dumont MD Primary Care Provide r Reason for Visit * Reason Comments Med Refill Encounter Details Date Type Department Care Team ([facility] st Contact Info) Description 11/14/2024 Refill [facility] CHC MED & PEDS [address] [place] [address] Aj Dumont MD 230 [place] [address] Chronic midline low back pain without sciatica [...] Description 08/09/2025 10:15 AM EDT Office Visit [facility] MEDICINE 230 [place] [address] Aj Dumont MD 230 [place] [address] 09/20/2025 2:00 PM EST Clinical Support [facility] CHC MED & PEDS [address] [place] [address] 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, SHEREE 505 [place] [address] documented as of this encounter Goals Goal [...] documented as of this encounter Care Teams Military Nurse Relationship Specialty Start Date End Date Aj Dumont MD 230 [place] [address] PCP - General Internal Medicine 09/12/14 [facility] 10/17/24 documented as of this encounter
--- OUTSIDE RECORDS SUMMARY | 2025-07-19 12:12 | XMS_ITS | Encounter Summary ---
Author Organization [employer] Address [address] [facility] 7t [place] [address] Care Team Providers Care Starch Factory Laborer Name Role Phone Aj Dumont MD Primary Care Provide r Reason for Visit * Reason Onset Date Comments Med Refill 03/31/2024 Encounter Details Date Type Department Care Team ([facility] st Contact Info) Description 03/31/2024 Telephone [facility] MEDICINE [address] [place] [address] Aj Dumont MD [address] [place] [address] Med Refill Social History Tobacco Use Types [...] is your housing situation today? I have genevieev ludy 03/16/[address] you [...] 5-325 MG tablet To be sent to: [facility] [place], [place] - [address] [place] [address] documented in this encounter Plan of Treatment Upcoming Encounters Date Type Department Care Team ([facility] st Contact Info) Description 08/09/2025 10:15 AM EDT Office Visit [facility] MEDICINE [address] [place] [address] Aj Dumont MD [address] [place] [address] 09/20/2025 2:00 PM EST Clinical Support [facility] CHC MED & PEDS 505 [place] [address] 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, SHEREE 505 [place] [address] documented as of this encounter Goals Goal Patient Goal Type Associated Problems Recent Progress Patient-Stated? Author Blood Pressure < 140/90 Blood Pressure Hypertension 109/72(04/24/ 2025 10:23 AM EDT) No Natanael Oquendo, DorcasD documented as of this encounter Visit Diagnoses Not on filedocumented in this encounter Additional Health Concerns Assessment Noted Time PHQ-9 Depression Total Score: 3 03/16/20 24 2:58 PM EDT documented as of this encounter Care Teams Starch Factory Laborer Relationship Specialty Start Date End Date Aj Dumont MD [address] [place] [id number] PCP - General Internal Medicine 09/12/14 [facility] 10/17/24 documented as of this encounter
--- OUTSIDE RECORDS SUMMARY | 2025-07-19 12:12 | XMS_ITS | Encounter Summary ---
Author Organization [employer] Address [address] [place] [address] 7t [place] [address] Care Team Providers Care Dental Front Office Assistant Name Role Phone Aj Dumont MD Primary Care Provide r Reason for Visit * Reason Comments Med Refill Encounter Details Date Type Department Care Team (Late st Contact Info) Description 12/17/2022 Refill [facility] MEDICINE [address] [place] [address] Aj Dumont MD 230 [place] [address] Chronic midline low back pain without sciatica [...] Description 08/09/2025 10:15 AM EDT Office Visit [facility] MEDICINE [address] [place] [address] Aj Dumont MD [address] [place] [address] 09/20/2025 2:00 PM EST Clinical Support [facility] CHC MED & PEDS 505 [place] [address] 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, RN 505 [place] [address] documented as of this encounter Visit Diagnoses Diagnosis Chronic midline low back pain without sciatica documented in this encounter Care Teams Dental Front Office Assistant Relationship Specialty Start Date End Date Aj Dumont MD 230 [place] [address] PCP - General Internal Medicine 09/12/14 [facility] 10/17/24 documented as of this encounter
[2025-07-19 12:13] LABS: Appearance Urine Clear; Glucose Urine UA Negative (Negative); PH 5.5 (5.0-9.0); Specific Gravity - Urine 1.025 (1.005-1.025); UMIC TRIGGER UA YES
== END 2025-07-19 10:41 | disposition home or self-care (01) ==
LOC: HO.LAB 10:40
PROVIDERS: PCP Internal Medicine; Visit Provider Urology
DX: N39.0 Urinary tract infection, site not specified (principal)
CPT/HCPCS: 81001; 87086

== ENCOUNTER 2025-11-09 12:41 | Outpatient (AMB) | payer MEDICARE, SELFPAY ==
--- OUTSIDE RECORDS SUMMARY | 2025-11-09 12:44 | XMS_ITS | Encounter Summary ---
Author Organization [employer] Address [address] [facility] 7t [place] [address] Care Team Providers Care Glaze Maker Name Role Phone Aj Dumont MD Primary Care Provide r Reason for Visit * Reason Comments Med Refill Encounter Details Date Type Department Care Team ([facility] st Contact Info) Description 02/25/2024 Refill [facility] CHC MED & PEDS [address] [place] [address] Aj Dumont MD 230 [place] [address] Chronic midline low back pain without sciatica [...] Care Team (Late st Contact Info) Description 11/13/2025 1:15 PM EST Office Visit [facility] MEDICINE 230 [place] [address] jA Dumont MD [address] [place] [address] 01/07/2026 9:30 AM EST Telemedicine [facility] CHC MED & PEDS 505 [place] [address] 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, RN 505 [place] [address] 03/18/2026 2:00 PM EDT Office Visit [facility] OPTOMETRY [address] [place] [address] Paris Frances, OD [address] [place] [address] documented as of this encounter Goals Goal Patient Goal Type Associated Problems Recent Progress Patient-Stated? Author Blood Pressure < 140/90 Blood Pressure Hypertension 134/80(2024 10:10 AM EDT) No Natanael Oquendo, PharmD documented as of this encounter Visit Diagnoses Diagnosis Chronic midline low back pain without sciatica documented in this encounter Additional Health Concerns Assessment Noted Time PHQ-9 Depression Total Score: 6 01/29/20 23 2:25 PM EDT documented as of this encounter Care Teams Glaze Maker Relationship Specialty Start Date End Date Aj Dumont MD [address] [place] [address] PCP - General Internal Medicine 09/12/14 [facility] 10/17/24 documented as of this encounter
--- OUTSIDE RECORDS SUMMARY | 2025-11-09 12:44 | XMS_ITS | Encounter Summary ---
Author Organization [employer] Address [address] [facility] 7t [place] [address] Care Team Providers Care Junior Brand Manager Name Role Phone Aj Dumont MD Primary Care Provide r Reason for Visit * Reason Comments Med Refill Encounter Details Date Type Department Care Team ([facility] st Contact Info) Description 02/29/[address] [facility] CHC MED & PEDS [address] [place] [address] Aj Dumont MD 230 [place] [address] Chronic midline low back pain without sciatica [...] Description 11/13/2025 1:15 PM EST Office Visit [facility] MEDICINE [address] [place] [address] Aj Dumont MD 230 [place] [address] 01/07/2026 9:30 AM EST Telemedicine [facility] CHC MED & PEDS 505 [place] [address] 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, RN 505 [place] [address] 03/18/2026 2:00 PM EDT Office Visit [facility] OPTOMETRY [address] [place] [address] Paris Frances, OD [address] [place] [address] documented as of this encounter Goals Goal [...] documented as of this encounter Care Teams Junior Brand Manager Relationship Specialty Start Date End Date Aj Dumont MD 230 [place] [address] PCP - General Internal Medicine 09/12/14 [facility] 10/17/24 documented as of this encounter
--- OUTSIDE RECORDS SUMMARY | 2025-11-09 12:45 | XMS_ITS | Encounter Summary ---
Author Organization [employer] Address [address] [facility] 7t [place] [address] Care Team Providers Care Screening Representative Name Role Phone Aj Dumont MD Primary Care Provide r Reason for Visit * Reason Comments Med Refill Encounter Details Date Type Department Care Team ([facility] st Contact Info) Description 12/19/2024 Refill [facility] CHC MED & PEDS [address] [place] [address] Aj Dumotn MD 230 [place] [address] Chronic midline low back pain without sciatica [...] RN - 12/25/2024 9:11 AM EST What IMPROVEMENT LEAD Tier would you like this patient to be? Tier 1 = HIGH RISK, Monthly IMPROVEMENT LEAD visits Tier 2 = MODerate RISK, Q3 Month visits Tier 3 = LOW RISK = Q4-6 month visits documented in this encounter Plan of Treatment Upcoming Encounters Date Type Department Care Team ([facility] st Contact Info) Description 11/13/2025 1:15 PM EST Office Visit [facility] MEDICINE 230 [place] [address] Aj Dumont MD 230 [place] [address] 01/07/2026 9:30 AM EST Telemedicine [facility] CHC MED & PEDS [address] [place] [address] 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 RN 505 [place] [address] 03/18/2026 2:00 PM EDT Office Visit [facility] OPTOMETRY [address] [place] [address] Paris Frances, OD [address] [place] [address] documented as of this encounter Goals Goal [...] documented as of this encounter Care Teams Screening Representative Relationship Specialty Start Date End Date Aj Dumont MD 230 [place] [address] PCP - General Internal Medicine 09/12/14 [facility] 10/17/24 documented as of this encounter
--- OUTSIDE RECORDS SUMMARY | 2025-11-09 12:45 | XMS_ITS | Encounter Summary ---
Author Organization [employer] Address [address] [place] [address] [address], [place] [address] Care Team Providers Care Puller Machine Name Role Phone Aj Dumont MD Primary Care Provide r Reason for Visit * Reason Comments Med Refill Encounter Details Date Type Department Care Team (Late Contact Info) Description 08/02/2023 Refill [facility] MEDICINE 230 [place], [place] [phone] Aj Dumont MD 230 [place], [place] [phone] Chronic midline low back pain without sciatica [...] Department Care Team (Late Contact Info) Description 11/13/2025 1:15 PM EST Office Visit [facility] MEDICINE 230 [place] [address] Aj Dumont MD [address] [place] [address] 01/07/2026 9:30 AM EST Telemedicine [facility] CHC MED & PEDS 505 [place], [place] [phone] 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, RN [address] [place], [place] 03/18/2026 2:00 PM EDT Office Visit [facility] OPTOMETRY [address] [place], [place] [phone] Paris Frances, OD [address] [place], [place] documented as of this encounter Goals [...] documented as of this encounter Care Teams Puller Machine Relationship Specialty Start Date End Date Aj Dumont MD [address] [place] [address] PCP - General Internal Medicine 09/12/14 [facility] 10/17/24 documented as of this encounter
--- OUTSIDE RECORDS SUMMARY | 2025-11-09 12:45 | XMS_ITS | Clinical Summary ---
Author Organization [facility] Address [address] [address] Phone Care Team Providers Care Membership Coordinator Name Role Phone Aj Alonso MD Primary [...] 2025 INFLUENZA VACCINE (#1) 2025 COVID-19 VACCINE ( - 2024-2 6 season) 2025 RSV VACCINE (1 - 1-dose [...] topic Medical Devices Not on file [place] [address] [address] [employer] MEDICARE REPLACEMENT MEDICARE PART A & B [facility] CARE MEDICARE REPLACEMENT MEDICARE PART A & B MEDICARE PART A & B MEDICARE PART A & B MEDICARE PART A & B CARE MEDICARE REPLACEMENT MEDICARE PART A & B Care Teams Membership Coordinator Relationship Specialty Start Date End Date Aj Alonso MD [address] [place] [address] [address] CLAU Johansen [phone] [email or web address] PCP - General Internal Medicine 07/28/23 Additional Source Comments The information contained in this document represents components of the legal health record. It is not the complete legal health record.[facility]
--- OUTSIDE RECORDS SUMMARY | 2025-11-09 12:45 | XMS_ITS | Encounter Summary ---
Author Organization [employer] Address [address] [facility] 7t [place] [address] Care Team Providers Care Power Generation Engineer Name Role Phone Aj Dumont MD Primary Care Provide r Reason for Visit * Reason Comments Med Refill Encounter Details Date Type Department Care Team ([facility] Contact Info) Description 09/30/2023 Refill [facility] MEDICINE [address] [place] [address] Loly Johnson MD [address] [place] [address] Chronic midline low back pain without sciatica [...] Description 11/13/2025 1:15 PM EST Office Visit [facility] MEDICINE [address] [place] [address] Aj Dumont MD 230 [place] [address] 01/07/2026 9:30 AM EST Telemedicine [facility] CHC MED & PEDS 505 [place] [address] 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, RN 505 [place] [address] 03/18/2026 2:00 PM EDT Office Visit [facility] OPTOMETRY [address] [place] [address] Paris Frances, OD [address] [place] [address] documented as of this encounter Goals Goal Patient Goal Type Associated Problems Recent Progress Patient-Stated? Author Blood Pressure < 140/90 Blood Pressure Hypertension 134/80(2024 10:10 AM EDT) No Natanael Oquendo, DorcasD documented as of this encounter Visit Diagnoses Diagnosis Chronic midline low back pain without sciatica documented in this encounter Additional Health Concerns Assessment Noted Time PHQ-9 Depression Total Score: 6 01/29/20 23 2:25 PM EDT documented as of this encounter Care Teams Power Generation Engineer Relationship Specialty Start Date End Date Aj Dumont MD 230 [place] [address] PCP - General Internal Medicine 09/12/14 [facility] 10/17/24 documented as of this encounter
--- OUTSIDE RECORDS SUMMARY | 2025-11-09 12:45 | XMS_ITS | Encounter Summary ---
Author Organization [employer] Address [address] [place] [address] [place] [address] Care Team Providers Care Safety Deposit Boxes Custodian Name Role Phone Aj Dumont MD Primary Care Provide r Reason for Visit * Reason Comments Med Refill Encounter Details Date Type Department Care Team (Late st Contact Info) Description 08/14/2023 Refill [facility] MEDICINE [address] [place] [address] Aj Dumont MD [address] [place] [address] Type 2 diabetes mellitus without complication, with long-term current use of insulin ([facility]) Social History Tobacco Use Types Packs/Day [...] Description 11/13/2025 1:15 PM EST Office Visit [facility] MEDICINE [address] [place] [address] Aj Dumont MD [address] [place] [address] 01/07/2026 9:30 AM EST Telemedicine [facility] CHC MED & PEDS [address] [place] [address] 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, RN [address] [place], [place] 03/18/2026 2:00 PM EDT Office Visit [facility] OPTOMETRY [address] [place] [address] Paris Frances, OD [address] [place] [address] documented as of this encounter Goals Goal Patient Goal Type Associated Problems Recent Progress Patient-Stated? Author Blood Pressure < 140/90 Blood Pressure Hypertension 134/80(2024 10:10 AM EDT) No Natanael Oquendo, PharmD documented as of this encounter Visit Diagnoses Diagnosis Type 2 diabetes mellitus without complication, with long-term current use of insulin (HCC) documented in this encounter Additional Health Concerns Assessment Noted Time PHQ-9 Depression Total Score: 6 01/29/20 23 2:25 PM EDT documented as of this encounter Care Teams Safety Deposit Boxes Custodian Relationship Specialty Start Date End Date Aj Dumont MD [address] [place] [address] PCP - General Internal Medicine 09/12/14 [facility] 10/17/24 documented as of this encounter
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
--- OUTSIDE RECORDS SUMMARY | 2025-11-09 12:45 | XMS_ITS | Encounter Summary ---
Author Organization [employer] Address [address] [facility] 7t [place] [address] Care Team Providers Care Spray Drier Operator Helper Name Role Phone Aj Dumont MD Primary Care Provide r Reason for Visit * Reason Comments Med Refill Encounter Details Date Type Department Care Team ([facility] st Contact Info) Description 10/16/2025 Refill [facility]EDS [address] [place] [address] Aj Dumont MD 230 [place] [address] Chronic midline low back pain without sciatica [...] Description 11/13/2025 1:15 PM EST Office Visit [facility] MEDICINE 230 [place] [address] Aj Dumont MD 230 [place] [address] 01/07/2026 9:30 AM EST Telemedicine [facility] MED [facility] PEDS 505 [place] [address] 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, SHEREE 505 [place] [address] 03/18/2026 2:00 PM EDT Office Visit [facility] OPTOMETRY [address] [place] [address] Paris Frances OD [address] [place] [address] documented as of this encounter Goals Goal Patient Goal Type Associated Problems Recent Progress Patient-Stated? Author Blood Pressure < 140/90 Blood Pressure Hypertension 134/80(2024 10:10 AM EDT) No OquendoNatanael lane PharmD Help patients manage their type 2 diabetes Care Plan Help patients manage their type 2 diabetes Nguyen Hawkins RN Weekly blood pressure task Care Plan Weekly blood pressure task Nguyen Hawkins RN Help patients manage their type 2 diabetes Care Plan Help patients manage their type 2 diabetes Nguyen Hawkins RN Patient has chronic kidney disease Care Plan Patient has chronic kidney disease Nguyen Hawkins RN Weekly blood pressure task Care Plan Weekly blood pressure task Nguyen Hawkins RN Patient has chronic kidney disease Care Plan Patient has chronic kidney disease Nguyen Hawkins RN documented as of this encounter Visit Diagnoses Diagnosis Chronic midline low back pain without sciatica documented in this encounter Additional Health Concerns Active Problems Noted Date Diagnosed Date Help patients manage their type 2 diabetes 10/10 Weekly blood pressure task 10/10/2025 Help patients manage their type 2 diabetes 10/10 Patient has chronic kidney disease 10/10/2025 Weekly blood pressure task 10/10/2025 Patient has chronic kidney disease 10/10/2025 Assessment Noted Time PHQ-9 Depression Total Score: 0 08/09/20 25 10:20 AM EDT documented as of this encounter Care Teams Spray Drier Operator Helper Relationship Specialty Start Date End Date Aj Dumont MD [address] [place] [address] PCP - General Internal Medicine 09/12/14 [facility] 10/17/24 documented as of this encounter
--- OUTSIDE RECORDS SUMMARY | 2025-11-09 12:45 | XMS_ITS | Encounter Summary ---
Author Organization [employer] Address [address] [place] [address] [address], [place] [address] Care Team Providers Care Hvac/R Service Technician Name Role Phone Aj Dumont MD Primary Care Provide r Reason for Visit * Reason Comments Med Refill Encounter Details Date Type Department Care Team (Late Contact Info) Description 08/16/2023 Refill [facility] MEDICINE 230 [place], [place] [phone] Aj Dumont MD 230 [place], [place] [phone] Reflux gastritis; Mixed hyperlipidemia Social History Tobacco [...] Description 11/13/2025 1:15 PM EST Office Visit [facility] MEDICINE 230 [place] [address] Aj Dumont MD 230 [place] [address] 01/07/2026 9:30 AM EST Telemedicine [facility] CHC MED & PEDS [address] [place], [place] [phone] 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, RN [address] [place], [place] 03/18/2026 2:00 PM EDT Office Visit [facility] OPTOMETRY 267 [place] [address] Paris Frances, OD [address] [place], [place] documented as of this encounter Goals [...] documented as of this encounter Care Teams Hvac/R Service Technician Relationship Specialty Start Date End Date Aj Dumont MD 230 [place], [place] [phone] PCP - General Internal Medicine 09/12/14 [facility] 10/17/24 documented as of this encounter
--- OUTSIDE RECORDS SUMMARY | 2025-11-09 12:45 | XMS_ITS | Encounter Summary ---
Author Organization [employer] Address [address] [facility] 7t [place] [address] Care Team Providers Care Segment Block Layer Name Role Phone Aj Dumont MD Primary Care Provide r Reason for Visit * Reason Comments Med Refill Encounter Details Date Type Department Care Team ([facility] Contact Info) Description 06/28/2024 Refill [facility] CHC MED & PEDS [address] [place] [address] Aj Dumont MD 230 [place] [address] Chronic midline low back pain without sciatica [...] Upcoming Encounters Date Type Department Care Team ([facility] st Contact Info) Description 11/13/2025 1:15 PM EST Office Visit [facility] MEDICINE 230 [place] [address] Aj Dumont MD 230 [place] [address] 01/07/2026 9:30 AM EST Telemedicine [facility] CHC MED & PEDS 505 [place], [place] [phone] 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, RN 505 [place] [address] 03/18/2026 2:00 PM EDT Office Visit [facility] OPTOMETRY 267 [place] [address] Paris Frances, OD 267 [place] [address] documented as of this encounter Goals Goal [...] documented as of this encounter Care Teams Segment Block Layer Relationship Specialty Start Date End Date Aj Dumont MD 230 [place] [address] PCP - General Internal Medicine 09/12/14 [facility] 10/17/24 documented as of this encounter
--- OUTSIDE RECORDS SUMMARY | 2025-11-09 12:45 | XMS_ITS | Encounter Summary ---
Author Organization [employer] Address 75 [facility] 7t [place] [address] Care Team Providers Care Child Specialist Name Role Phone Aj Dumont MD Primary Care Provide r Encounter Details Date Type Department Care Team ([facility] st Contact Info) Description 09/20/2025 Refill [facility] MEDICINE [address] [place] [address] Aj Dumont MD 230 [place] [address] S/P coronary artery stent placement Social History [...] Description 11/13/2025 1:15 PM EST Office Visit [facility] MEDICINE [address] [place] [address] Aj uDmont MD 230 [place] [address] 01/07/2026 9:30 AM EST Telemedicine [facility] MED & PEDS 505 [place] [address] 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, RN 505 [place] [address] 03/18/2026 2:00 PM EDT Office Visit [facility] OPTOMETRY 267 [place] [address] Paris Frances, OD 267 [place] [address] documented as of this encounter Goals Goal [...] documented as of this encounter Care Teams Child Specialist Relationship Specialty Start Date End Date Aj Dumont MD 230 [place] [address] PCP - General Internal Medicine 09/12/14 [facility] 10/17/24 documented as of this encounter
--- OUTSIDE RECORDS SUMMARY | 2025-11-09 12:45 | XMS_ITS | Encounter Summary ---
Author Organization [employer] Address 75 [facility] 7t [place] [address] Care Team Providers Care Company Dancer Name Role Phone Aj Dumont MD Primary Care Provide r Encounter Details Date Type Department Care Team ([facility] st Contact Info) Description 03/20/2025 Orders Only [facility] CHC MED & PEDS [address] [place] [address] ProviderBladimir MD Social History Tobacco Use Types Packs/Day Years [...] Upcoming Encounters Date Type Department Care Team ([facility] st Contact Info) Description 11/13/2025 1:15 PM EST Office Visit [facility] MEDICINE 230 [place] [address] Aj Dumont MD 230 [place] [address] 01/07/2026 9:30 AM EST Telemedicine [facility] CHC MED & PEDS 505 [place] [address] 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, RN 505 [place] [address] 03/18/2026 2:00 PM EDT Office Visit [facility] OPTOMETRY [address] [place] [address] Paris Frances, OD [address] [place] [address] documented as of this encounter Goals Goal Patient Goal Type Associated Problems Recent Progress Patient-Stated? Author Blood Pressure < 140/90 Blood Pressure Hypertension 134/80(2024 10:10 AM EDT) Natanael Choi, PharmD documented as of this encounter Procedures Procedure Name Priority Date/Time Associated Diagnosis Comments HM COLONOSCOPY Routine 11/03/2019 9:48 AM EST documented in this encounter Results * Hm Colonoscopy (11/03/2019 9:48 AM EST) Colonoscopy Normal Normal Narrative Mitzi Cross - 11/03/2019 9:48 AM EST Recommended 10 year follow up notes scanned in media librarian us Historical Provider HEALTH MAINTENANCE Edited Result - Final documented in this encounter Visit Diagnoses Not on filedocumented in this encounter Additional Health Concerns Assessment Noted Time PHQ-9 Depression Total Score: 3 03/08/20 25 10:40 AM EDT documented as of this encounter Care Teams Company Dancer Relationship Specialty Start Date End Date Aj Dumont MD 230 [place] [address] PCP - General Internal Medicine 09/12/14 [facility] 10/17/24 documented as of this encounter
--- OUTSIDE RECORDS SUMMARY | 2025-11-09 12:45 | XMS_ITS | Encounter Summary ---
Author Organization [employer] Address [address] [facility] 7 [place] [address] Care Team Providers Care Occupational Health Nurse Supervisor Name Role Phone jA Dumont MD Primary Care Provide r Reason for Visit * Reason Onset Date Comments Med Refill 09/29/2023 Encounter Details Date Type Department Care Team ([facility] Contact Info) Description 09/29/2023 Telephone [facility] MEDICINE 230 [place] [address] Aj Dumont MD 230 [place] [address] Med Refill Social History Tobacco Use Types [...] 1:15 PM EST Office Visit [facility] MEDICINE 230 [place] [address] Aj Dumont MD [address] [place] [address] 01/07/2026 9:30 AM EST Telemedicine [facility] CHC MED & PEDS 505 [place] [address] 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, SHEREE 505 [place] [address] 03/18/2026 2:00 PM EDT Office Visit [facility] OPTOMETRY [address] [place] [address] Paris Frances, OD [address] [place] [address] documented as of this encounter Goals Goal [...] documented as of this encounter Care Teams Occupational Health Nurse Supervisor Relationship Specialty Start Date End Date Aj Dumont MD [address] [place] [address] PCP - General Internal Medicine 09/12/14 [facility] 10/17/24 documented as of this encounter
--- OUTSIDE RECORDS SUMMARY | 2025-11-09 12:45 | XMS_ITS | Clinical Summary ---
Author Organization [facility] ity Address [address] [place] [address] Care Team Providers Care Desk Officer Name Role Phone Unavailable Primary Care Provider [...] 2010 Zoster Vaccines (1 of 2) 2010 Depression Screening 11/15/2024 COVID-19 Vaccine (1 - 2024-2 6 season) 2025 Influenza Vaccine (#1) 2025 RSV Immunization Adult [...]
--- OUTSIDE RECORDS SUMMARY | 2025-11-09 12:45 | XMS_ITS | Encounter Summary ---
Author Organization [employer] Address [address] [facility] 7t [place] [address] Care Team Providers Care Physician Asst Name Role Phone Aj Dumont MD Primary Care Provide r Reason for Visit * Reason Comments Med Refill Encounter Details Date Type Department Care Team ([facility] Contact Info) Description 03/13/2025 Refill [facility] CHC MED & PEDS [address] [place] [address] Aj Dumont MD 230 [place] [address] Chronic midline low back pain without sciatica [...] RN - 03/22/2025 1:37 PM EDT .What LEAF SUCKER OPERATOR Tier would you like this patient to be? Tier 1 = HIGH RISK, Monthly LEAF SUCKER OPERATOR visits Tier 2 = MODerate RISK, Q3 Month visits Tier 3 = LOW RISK = Q4-6 month visits documented in this encounter Plan of Treatment Upcoming Encounters Date Type Department Care Team ([facility] st Contact Info) Description 11/13/2025 1:15 PM EST Office Visit [facility] MEDICINE 230 [place] [address] Aj Dumont MD [address] [place] [address] 01/07/2026 9:30 AM EST Telemedicine [facility] CHC MED & PEDS 505 [place] [address] 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, SHEREE 505 [place] [address] 03/18/2026 2:00 PM EDT Office Visit [facility] OPTOMETRY [address] [place] [address] Paris Frances, OD [address] [place] [address] documented as of this encounter Goals Goal [...] documented as of this encounter Care Teams Physician Asst Relationship Specialty Start Date End Date Aj Dumont MD 230 [place] [address] PCP - General Internal Medicine 09/12/14 [facility] 10/17/24 documented as of this encounter
--- OUTSIDE RECORDS SUMMARY | 2025-11-09 12:45 | XMS_ITS | Encounter Summary ---
Author Organization [employer] Address [address] [facility] 7t [place] [address] Care Team Providers Care Hard Candy Batch Mixer Name Role Phone Aj Dumont MD Primary Care Provide r Reason for Visit * Reason Comments Med Refill Encounter Details Date Type Department Care Team ([facility] st Contact Info) Description 09/25/2025 Refill [facility] CHC MED & PEDS [address] [place] [address] Aj Dumont MD 230 [place] [address] Chronic midline low back pain without sciatica [...] Description 11/13/2025 1:15 PM EST Office Visit [facility] MEDICINE 230 [place] [address] Aj Dumont MD 230 [place] [address] 01/07/2026 9:30 AM EST Telemedicine [facility] CHC MED & PEDS 505 [place] [address] 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, SHEREE 505 [place] [address] 03/18/2026 2:00 PM EDT Office Visit [facility] OPTOMETRY [address] [place] [address] Paris Frances OD 267 [place] [address] documented as of this encounter Goals Goal [...] documented as of this encounter Care Teams Hard Candy Batch Mixer Relationship Specialty Start Date End Date Aj Dumont MD 230 [place] [address] PCP - General Internal Medicine 09/12/14 [facility] 10/17/24 documented as of this encounter
--- OUTSIDE RECORDS SUMMARY | 2025-11-09 12:45 | XMS_ITS | Encounter Summary ---
Author Organization [employer] Address 75 [facility] 7 [place] [address] Care Team Providers Care Party Demonstrator Name Role Phone Aj Dumont MD Primary Care Provide r Reason for Visit * Reason Comments Med Refill Encounter Details Date Type Department Care Team ([facility] st Contact Info) Description 04/11/2025 Refill [facility] MEDICINE 230 [place] [address] Litzy Levin MD 505 [place] [address] Chronic midline low back pain without sciatica [...] housing situation today? I have genevie[place] 03/16/[address] you [...] 1:15 PM EST Office Visit [facility] MEDICINE [address] [place] [address] Aj Dumont MD 230 [place] [address] 01/07/2026 9:30 AM EST Telemedicine [facility] CHC MED & PEDS 505 [place] [address] 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, SHEREE 505 [place] [address] 03/18/2026 2:00 PM EDT Office Visit [facility] OPTOMETRY [address] [place] [address] Paris Frances, OD [address] [place] [address] documented as of this encounter Goals Goal [...] documented as of this encounter Care Teams Party Demonstrator Relationship Specialty Start Date End Date Aj Dumont MD [address] [place] [address] PCP - General Internal Medicine 09/12/14 [facility] 10/17/24 documented as of this encounter
--- OUTSIDE RECORDS SUMMARY | 2025-11-09 12:45 | XMS_ITS | Encounter Summary ---
Author Organization [employer] Address 75 [facility] 7 [place] [address] Care Team Providers Care Operator Automated Process Name Role Phone Aj Dumont MD Primary Care Provide r Reason for Visit * Reason Comments Med Refill Encounter Details Date Type Department Care Team ([facility] Contact Info) Description 10/11/2024 Refill [facility] MEDICINE 230 [place] [address] Aj Dumont MD 230 [place] [address] Social History Tobacco Use Types Packs/Day Years [...] Description 11/13/2025 1:15 PM EST Office Visit [facility] MEDICINE 230 [place] [address] Aj Dumont MD 230 [place] [address] 01/07/2026 9:30 AM EST Telemedicine [facility] CHC MED & PEDS 505 [place] [address] 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, RN 505 [place] [address] 03/18/2026 2:00 PM EDT Office Visit [facility] OPTOMETRY [address] [place] [address] Paris Frances, OD 267 [place] [address] documented as of this encounter Goals Goal [...] documented as of this encounter Care Teams Operator Automated Process Relationship Specialty Start Date End Date Aj Dumont MD [address] [place] [address] PCP - General Internal Medicine 09/12/14 [facility] 10/17/24 documented as of this encounter
--- OUTSIDE RECORDS SUMMARY | 2025-11-09 12:45 | XMS_ITS | Encounter Summary ---
Author Organization [employer] Address 75 [facility] 7 [place] [address] Care Team Providers Care Healthcare Sales Representative Name Role Phone Aj Dumont MD Primary Care Provide r Reason for Visit * Reason Onset Date Comments Appointment Request 09/17/2025 Encounter Details Date Type Department Care Team ([facility] Contact Info) Description 09/17/2025 Telephone [facility] MEDICINE 230 [place] [address] Aj Dumont MD 230 [place] [address] Appointment Request Social History Tobacco Use Types [...] encounter Miscellaneous Notes * Telephone Encounter - Kale Bell - 09/17/2025 1:45 PM EST 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 Contact pt at [phone] documented in this encounter Plan of Treatment Upcoming Encounters Date Type Department Care Team ([facility] st Contact Info) Description 11/13/2025 1:15 PM EST Office Visit [facility] MEDICINE [address] [place] [address] Aj Dumont MD 230 [place] [address] 01/07/2026 9:30 AM EST Telemedicine [facility] CHC MED & PEDS 505 [place] [address] 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, SHEREE 505 [place] [address] 03/18/2026 2:00 PM EDT Office Visit [facility] OPTOMETRY [address] [place] [address] Paris Frances, BENSON 267 [place] [address] documented as of this encounter Goals Goal [...] documented as of this encounter Care Teams Healthcare Sales Representative Relationship Specialty Start Date End Date Aj Dumont MD 230 [place] [address] PCP - General Internal Medicine 09/12/14 [facility] 10/17/24 documented as of this encounter
--- OUTSIDE RECORDS SUMMARY | 2025-11-09 12:45 | XMS_ITS | Encounter Summary ---
Author Organization [employer] Address 75 [facility] 7 [place] [address] Care Team Providers Care Shale Miner Name Role Phone Aj Dumont MD Primary Care Provide r Reason for Visit * Reason Comments Med Refill Encounter Details Date Type Department Care Team ([facility] st Contact Info) Description 04/10/2025 Refill [facility] MEDICINE 230 [place] [address] Litzy Levin MD [address] [place] [address] Chronic midline low back pain without sciatica [...] Description 11/13/2025 1:15 PM EST Office Visit [facility] MEDICINE [address] [place] [address] Aj Dumont MD 230 [place] [address] 01/07/2026 9:30 AM EST Telemedicine [facility] CHC MED & PEDS 505 [place] [address] 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, SHEREE 505 [place] [address] 03/18/2026 2:00 PM EDT Office Visit [facility] OPTOMETRY [address] [place] [address] Paris Frances, OD [address] [place] [address] documented as of this encounter Goals Goal [...] documented as of this encounter Care Teams Shale Miner Relationship Specialty Start Date End Date Aj Dumont MD [address] [place] [address] PCP - General Internal Medicine 09/12/14 [facility] 10/17/24 documented as of this encounter
--- OUTSIDE RECORDS SUMMARY | 2025-11-09 12:45 | XMS_ITS | Encounter Summary ---
Author Organization [employer] Address 75 [facility] 7t [place] [address] Care Team Providers Care Document Reviewer Name Role Phone Aj Dumont MD Primary Care Provide r Reason for Visit * Reason Comments Med Refill Encounter Details Date Type Department Care Team ([facility] st Contact Info) Description 10/18/2025 Refill [facility] CHC MED & PEDS [address] [place] [address] Aj Dumont MD 230 [place] [address] Chronic midline low back pain without sciatica [...] Description 11/13/2025 1:15 PM EST Office Visit [facility] MEDICINE [address] [place] [address] Aj Dumont MD 230 [place] [address] 01/07/2026 9:30 AM EST Telemedicine [facility] CHC MED & PEDS 505 [place] [address] 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, SHEREE 505 [place] [address] 03/18/2026 2:00 PM EDT Office Visit [facility] OPTOMETRY [address] [place] [address] Paris Frances OD 267 [place] [address] documented as of this encounter Goals Goal [...] documented as of this encounter Care Teams Document Reviewer Relationship Specialty Start Date End Date Aj Dumont MD [address] [place] [address] PCP - General Internal Medicine 09/12/14 [facility] 10/17/24 documented as of this encounter
--- OUTSIDE RECORDS SUMMARY | 2025-11-09 12:45 | XMS_ITS | Encounter Summary ---
Author Organization [employer] Address 75 [facility] 7t [place] [address] Care Team Providers Care Cable Braider Name Role Phone Aj Dumont MD Primary Care Provide r Reason for Visit * Reason Comments Med Refill Encounter Details Date Type Department Care Team ([facility] Contact Info) Description 06/28/2024 Refill [facility] CHC MED & PEDS [address] [place] [address] Aj Dumont MD 230 [place] [address] Chronic midline low back pain without sciatica [...] Upcoming Encounters Date Type Department Care Team ([facility] st Contact Info) Description 11/13/2025 1:15 PM EST Office Visit [facility] MEDICINE 230 [place] [address] Aj Dumont MD 230 [place] [address] 01/07/2026 9:30 AM EST Telemedicine [facility] CHC MED & PEDS 505 [place], [place] [phone] 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, RN 505 [place] [address] 03/18/2026 2:00 PM EDT Office Visit [facility] OPTOMETRY [address] [place] [address] Paris Frances, OD [address] [place] [address] documented as of this encounter Goals Goal [...] documented as of this encounter Care Teams Cable Braider Relationship Specialty Start Date End Date Aj Dumont MD 230 [place] [address] PCP - General Internal Medicine 09/12/14 [facility] 10/17/24 documented as of this encounter
--- OUTSIDE RECORDS SUMMARY | 2025-11-09 12:45 | XMS_ITS | Encounter Summary ---
Author Organization [employer] Address [address] [facility] [address] 7t [place] [address] Care Team Providers Care Fleet Director Name Role Phone Aj Dumont MD Primary Care Provide r Reason for Visit * Reason Comments Med Refill Encounter Details Date Type Department Care Team ([facility] Contact Info) Description 10/25/2023 Refill [facility] MED & PEDS [address] [place] [address] Aj Dumont MD 230 [place] [address] Chronic midline low back pain without sciatica [...] Description 11/13/2025 1:15 PM EST Office Visit [facility] MEDICINE 230 [place] [address] Aj Dumont MD [address] [place] [address] 01/07/2026 9:30 AM EST Telemedicine [facility] CHC MED & PEDS 505 [place] [address] 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, RN 505 [place] [address] 03/18/2026 2:00 PM EDT Office Visit [facility] OPTOMETRY [address] [place] [address] Paris Frances, OD 267 [place] [address] documented as of this encounter Goals Goal [...] documented as of this encounter Care Teams Fleet Director Relationship Specialty Start Date End Date Aj Dumont MD [address] [place] [address] PCP - General Internal Medicine 09/12/14 [facility] 10/17/24 documented as of this encounter
--- OUTSIDE RECORDS SUMMARY | 2025-11-09 12:45 | XMS_ITS | Encounter Summary ---
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 ([facility]) Social History Tobacco Use Types Packs/Day [...] 11/13/2025 1:15 PM EST Office Visit [facility] MEDICINE 230 [place] [address] Aj Dumont MD 230 [place] [address] 01/07/2026 9:30 AM EST Telemedicine [facility] CHC MED & PEDS 505 [place] [address] 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, RN 505 [place] [address] 03/18/2026 2:00 PM EDT Office Visit [facility] OPTOMETRY [address] [place] [address] Paris Frances, OD 267 [place] [address] documented as of this encounter Goals Goal Patient Goal Type Associated Problems Recent Progress Patient-Stated? 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
--- OUTSIDE RECORDS SUMMARY | 2025-11-09 12:45 | XMS_ITS | Encounter Summary ---
Author Organization [employer] Address [address] [facility] 7t [place] [address] Care Team Providers Care Event Operations Manager Name Role Phone Aj Dumont MD Primary Care Provide r Reason for Visit * Reason Comments Med Refill Encounter Details Date Type Department Care Team ([facility] st Contact Info) Description 12/18/2024 Refill [facility] CHC MED & PEDS [address] [place] [address] Aj Dumont MD [address] [place] [address] Chronic midline low back pain without sciatica [...] Description 11/13/2025 1:15 PM EST Office Visit [facility] MEDICINE 230 [place] [address] Aj Dumont MD 230 [place] [address] 01/07/2026 9:30 AM EST Telemedicine [facility] CHC MED & PEDS 505 [place] [address] 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, RN 505 [place] [address] 03/18/2026 2:00 PM EDT Office Visit [facility] OPTOMETRY 267 [place] [address] Paris Frances, BENSON 267 [place] [address] documented as of this encounter Goals Goal [...] documented as of this encounter Care Teams Event Operations Manager Relationship Specialty Start Date End Date Aj Dumont MD 230 [place] [address] PCP - General Internal Medicine 09/12/14 [facility] 10/17/24 documented as of this encounter
--- OUTSIDE RECORDS SUMMARY | 2025-11-09 12:45 | XMS_ITS | Encounter Summary ---
Author Organization [employer] Address [address] [facility] 7 [place] [address] Care Team Providers Care Member Of Congress Name Role Phone Aj Dumont MD Primary Care Provide r Reason for Visit * Reason Comments Med Refill Encounter Details Date Type Department Care Team ([facility] Contact Info) Description 01/12/2025 Refill [facility] MEDICINE 230 [place] [address] Aj Dumont MD [address] [place] [address] Chronic midline low back pain without sciatica [...] Description 11/13/2025 1:15 PM EST Office Visit [facility] MEDICINE 230 [place] [address] Aj Dumont MD 230 [place] [address] 01/07/2026 9:30 AM EST Telemedicine [facility] CHC MED & PEDS 505 [place] [address] 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, RN 505 [place] [address] 03/18/2026 2:00 PM EDT Office Visit [facility] OPTOMETRY 267 [place] [address] Paris Frances, OD 267 [place] [address] documented as of this encounter Goals Goal [...] documented as of this encounter Care Teams Member Of Congress Relationship Specialty Start Date End Date Aj Dumont MD 230 [place] [address] PCP - General Internal Medicine 09/12/14 [facility] 10/17/24 documented as of this encounter
--- OUTSIDE RECORDS SUMMARY | 2025-11-09 12:45 | XMS_ITS | Encounter Summary ---
Author Organization [employer] Address [address] [facility] 7t [place] [address] Care Team Providers Care Investor Relations Manager Name Role Phone Aj Dumont MD Primary Care Provide r Encounter Details Date Type Department Care Team ([facility] st Contact Info) Description 07/30/2025 Refill [facility] MEDICINE 230 [place] [address] Aj Dumont MD 230 [place] [address] Mixed hyperlipidemia; Reflux gastritis Social History Tobacco [...] Description 11/13/2025 1:15 PM EST Office Visit [facility] MEDICINE [address] [place] [address] Aj Dumont MD [address] [place] [address] 01/07/2026 9:30 AM EST Telemedicine [facility] CHC MED & PEDS 505 [place] [address] 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, RN 505 [place] [address] 03/18/2026 2:00 PM EDT Office Visit [facility] OPTOMETRY 267 [place] [address] Paris Frances, OD 267 [place] [address] documented as of this encounter Goals Goal [...] as of this encounter Care Teams Investor Relations Manager Relationship Specialty Start Date End Date Aj Dumont MD 230 [place] [address] PCP - General Internal Medicine 09/12/14 [facility] 10/17/24 documented as of this encounter
--- OUTSIDE RECORDS SUMMARY | 2025-11-09 12:45 | XMS_ITS | Encounter Summary ---
Author Organization [employer] Address [address] [facility] 7 [place] [address] Care Team Providers Care Operating Room Registered Nurse Name Role Phone Aj Dumont MD Primary Care Provide r Encounter Details Date Type Department Care Team ([facility] Contact Info) Description 07/31/2025 Telephone [facility] MEDICINE 230 [place] [address] Aj Dumont MD [address] [place] [address] Social History Tobacco Use Types Packs/Day Years [...] Description 11/13/2025 1:15 PM EST Office Visit [facility] MEDICINE 230 [place] [address] Aj Dumont MD [address] [place] [address] 01/07/2026 9:30 AM EST Telemedicine [facility] MED & PEDS 505 [place] [address] 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, RN 505 [place] [address] 03/18/2026 2:00 PM EDT Office Visit [facility] OPTOMETRY 267 [place] [address] Paris Frances, OD 267 [place] [address] documented as of this encounter Goals Goal [...] documented as of this encounter Care Teams Operating Room Registered Nurse Relationship Specialty Start Date End Date Aj Dumont MD 230 [place] [address] PCP - General Internal Medicine 09/12/14 [facility] 10/17/24 documented as of this encounter
--- OUTSIDE RECORDS SUMMARY | 2025-11-09 12:45 | XMS_ITS | Encounter Summary ---
Author Organization [employer] Address [address] [facility] 7 [place] [address] Care Team Providers Care Tower Operator Name Role Phone Aj Dumont MD Primary Care Provide r Reason for Visit * Reason Onset Date Comments Referral 12/01/2023 Encounter Details Date Type Department Care Team ([facility] Contact Info) Description 12/01/2023 Telephone [facility] MEDICINE 230 [place] [address] Aj Dumont MD 230 [place] [address] Referral Social History Tobacco Use Types Packs/Day [...] States was [place] [facility] due to the machine being small . Was advice to get a referral to [place] . Please call pt to clarify at phone #[phone]. documented in this encounter Plan of Treatment Upcoming Encounters Date Type Department Care Team (Late st Contact Info) Description 11/13/2025 1:15 PM EST Office Visit [facility] MEDICINE 230 [place] [address] Aj Dumont MD 230 [place] [address] 01/07/2026 9:30 AM EST Telemedicine [facility] CHC MED & PEDS 505 [place] [address] 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, SHEREE 505 [place] [address] 03/18/2026 2:00 PM EDT Office Visit [facility] OPTOMETRY 267 [place] [address] Paris Frances, OD [address] [place] [address] documented as of this encounter Goals Goal [...] as of this encounter Care Teams Tower Operator Relationship Specialty Start Date End Date Aj Dumont MD [address] [place] [address] PCP - General Internal Medicine 09/12/14 [facility] 10/17/24 documented as of this encounter
--- OUTSIDE RECORDS SUMMARY | 2025-11-09 12:46 | XMS_ITS | Encounter Summary ---
Author Organization [employer] Address [address] [place] [address] 7 [place] [address] Care Team Providers Care Foil Spooler Name Role Phone Aj Dumont MD Primary Care Provide r Encounter Details Date Type Department Care Team (Late Contact Info) Description 11/24/2022 Orders Only [facility] MEDICINE [address] [place] [address] Shae Sofia LPN Social History Tobacco Use [...] Description 11/13/2025 1:15 PM EST Office Visit [facility] MEDICINE [address] [place] [phone] Aj Dumont MD [address] [place] [phone] 01/07/2026 9:30 AM EST Telemedicine [facility] CHC MED & PEDS [address] [place] [address] 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, RN [address] [place], [place] 03/18/2026 2:00 PM EDT Office Visit [facility] OPTOMETRY 267 [place], [place] [phone] Paris Frances, OD 267 [place], [place] [phone] documented as of this encounter Visit Diagnoses Not on filedocumented in this encounter Care Teams Foil Spooler Relationship Specialty Start Date End Date Aj Dumont MD [address] [place] [phone] PCP - General Internal Medicine 09/12/14 [facility] 10/17/24 documented as of this encounter
--- OUTSIDE RECORDS SUMMARY | 2025-11-09 12:46 | XMS_ITS | Encounter Summary ---
Author Organization [employer] Address [address] [place] [address] 7 [place] [address] Care Team Providers Care Security Developer Name Role Phone Aj Dumont MD Primary Care Provide r Reason for Visit * Reason Comments Med Refill Encounter Details Date Type Department Care Team (Late Contact Info) Description 03/29/2023 Refill [facility] CHC MED & PEDS [address] [place] [address] Aj Dumont MD 230 [place], [place] [phone] Chronic midline low back pain without sciatica [...] Office Visit [facility] MEDICINE 230 [place], [place] [phone] Aj Dumont MD 230 [place] [address] 01/07/2026 9:30 AM EST Telemedicine [facility] CHC MED & PEDS 505 [place], [place] [phone] 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, RN 505 [place] [address] 03/18/2026 2:00 PM EDT Office Visit [facility] OPTOMETRY 267 [place] [address] Paris Frances, OD 267 [place] [address] documented as of this encounter Visit Diagnoses Diagnosis Chronic midline low back pain without sciatica documented in this encounter Additional Health Concerns Assessment Noted Time PHQ-9 Depression Total Score: 6 01/29/20 23 2:25 PM EDT documented as of this encounter Care Teams Security Developer Relationship Specialty Start Date End Date Aj Dumont MD 230 [place] [address] PCP - General Internal Medicine 09/12/14 [facility] 10/17/24 documented as of this encounter
--- OUTSIDE RECORDS SUMMARY | 2025-11-09 12:46 | XMS_ITS | Encounter Summary ---
Author Organization [employer] Address [address] [facility] 7t [place] [address] Care Team Providers Care Airplane Tube Builder Name Role Phone Aj Dumont MD Primary Care Provide r Reason for Visit * Reason Comments Med Refill Encounter Details Date Type Department Care Team ([facility] Contact Info) Description 11/14/2024 Refill [facility] CHC MED & PEDS [address] [place] [address] Aj Dumont MD [address] [place] [address] Chronic midline low back pain without sciatica [...] [facility] MED[facility] 230 [place] [address] Aj Dumont MD [address] [place] [address] 01/07/2026 9:30 AM EST Telemedicine [facility] CHC MED & PEDS 505 [place] [address] 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, RN 505 [place] [address] 03/18/2026 2:00 PM EDT Office Visit [facility] OPTOMETRY 267 [place] [address] Paris Frances, BENSON 267 [place] [address] documented as of this encounter Goals Goal [...] documented as of this encounter Care Teams Airplane Tube Builder Relationship Specialty Start Date End Date Aj Dumont MD [address] [place] [address] PCP - General Internal Medicine 09/12/14 [facility] 10/17/24 documented as of this encounter
--- OUTSIDE RECORDS SUMMARY | 2025-11-09 12:46 | XMS_ITS | Encounter Summary ---
Author Organization [employer] Address [address] [place] [address] 7 [place] [address] Care Team Providers Care Kitchen Manager Name Role Phone Aj Dumont MD Primary Care Provide r Reason for Visit * Reason Onset Date Comments Appointment Request 06/21/2024 Encounter Details Date Type Department Care Team ([facility] Contact Info) Description 06/21/2024 Telephone [facility] MEDICINE 230 [place] [address] Aj Dumont MD 230 [place] [address] Appointment Request Social History Tobacco Use Types [...] 11/13/2025 1:15 PM EST Office Visit [facility] MEDICINE [address] [place] [address] Aj Dumont MD 230 [place] [address] 01/07/2026 9:30 AM EST Telemedicine [facility] CHC MED & PEDS 505 [place] [address] 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, SHEREE 505 [place] [address] 03/18/2026 2:00 PM EDT Office Visit [facility] OPTOMETRY 267 [place] [address] Paris Frances, OD 267 [place] [address] documented as of this encounter Goals Goal [...] documented as of this encounter Care Teams Kitchen Manager Relationship Specialty Start Date End Date Aj Dumont MD [address] [place] [address] PCP - General Internal Medicine 09/12/14 [facility] 10/17/24 documented as of this encounter
--- OUTSIDE RECORDS SUMMARY | 2025-11-09 12:46 | XMS_ITS | Encounter Summary ---
Author Organization [employer] Address [address] [place] [address] 7 [place] [address] Care Team Providers Care Automatic Coin Machine Mechanic Name Role Phone Aj Dumont MD Primary Care Provide r Encounter Details Date Type Department Care Team ([facility] Contact Info) Description 01/27/2023 Orders Only [facility] CHC MED & PEDS [address] [place] [address] Jennifer Knott LPN Social History Tobacco Use [...] Encounters Date Type Department Care Team ([facility] Contact Info) Description 11/13/2025 1:15 PM EST Office Visit [facility] MEDICINE 230 [place] [address] Aj Dumont MD 230 [place] [address] 01/07/2026 9:30 AM EST Telemedicine [facility] CHC MED & PEDS 505 [place], [place] [phone] 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, RN [address] [place] [address] 03/18/2026 2:00 PM EDT Office Visit [facility] OPTOMETRY 267 [place], [place] [phone] Paris Frances, OD 267 [place] [address] documented as of this encounter Visit Diagnoses Not on filedocumented in this encounter Care Teams Automatic Coin Machine Mechanic Relationship Specialty Start Date End Date Aj Dumont MD 230 [place], [place] [phone] PCP - General Internal Medicine 09/12/14 [facility] 10/17/24 documented as of this encounter
--- OUTSIDE RECORDS SUMMARY | 2025-11-09 12:46 | XMS_ITS | Encounter Summary ---
Author Organization [employer] Address [address] [place] [address] 7 [place] [address] Care Team Providers Care Recreation Technician Name Role Phone Aj Dumont MD Primary Care Provide r Reason for Visit * Reason Onset Date Comments Med Refill 03/31/2024 Encounter Details Date Type Department Care Team ([facility] Contact Info) Description 03/31/[address] [facility] MEDICINE 230 [place] [address] Aj Dumont MD 230 [place] [address] Med Refill Social History Tobacco Use Types [...] 5-325 MG tablet To be sent to: [facility] [place], [place] - [address] [place] [address] documented in this encounter Plan of Treatment Upcoming Encounters Date Type Department Care Team ([facility] st Contact Info) Description 11/13/2025 1:15 PM EST Office [address] [facility] MEDICINE 230 [place] [address] Aj Dumont MD 230 [place] [address] 01/07/2026 9:[address] [facility] CHC MED & PEDS 505 [place] [address] 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, RN 505 [place] [address] 03/18/2026 2:00 PM EDT Office Visit [facility] OPTOMETRY 267 [place] [address] Paris Frances, OD [address] [place] [address] documented as of this encounter Goals Goal [...] documented as of this encounter Care Teams Recreation Technician Relationship Specialty Start Date End Date Aj Dumont MD [address] [place] [address] PCP - General Internal Medicine 09/12/14 [facility] 10/17/24 documented as of this encounter
--- OUTSIDE RECORDS SUMMARY | 2025-11-09 12:46 | XMS_ITS | Encounter Summary ---
Author Organization [employer] Address [address] [place] [address] 7 [place] [address] Care Team Providers Care Environmental Air Specialist Name Role Phone Aj Dumont MD Primary Care Provide r Reason for Visit * Reason Comments Med Refill Encounter Details Date Type Department Care Team ([facility] Contact Info) Description 12/17/2022 Refill [facility] [place] [facility] MEDICINE 230 [place] [address] Aj Dumont MD [address] [place] [address] Chronic midline low back pain without sciatica [...] Encounters Date Type Department Care Team ([facility] Contact Info) Description 11/13/2025 1:15 PM EST Office Visit [facility] MEDICINE [address] [place] [address] Aj Dumont MD [address] [place] [address] 01/07/2026 9:30 AM EST Telemedicine [facility] CHC MED & PEDS 505 [place] [address] 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, RN 505 [place] [address] 03/18/2026 2:00 PM EDT Office Visit [facility] OPTOMETRY [address] [place] [address] Paris Frances, OD 267 [place] [address] documented as of this encounter Visit Diagnoses Diagnosis Chronic midline low back pain without sciatica documented in this encounter Care Teams Environmental Air Specialist Relationship Specialty Start Date End Date Aj Dumont MD 230 [place] [address] PCP - General Internal Medicine 09/12/14 [facility] 10/17/24 documented as of this encounter
--- OUTSIDE RECORDS SUMMARY | 2025-11-09 12:46 | XMS_ITS | Encounter Summary ---
Author Organization [employer] Address [address] [place] [address] 7 [place] [address] Care Team Providers Care Baton Twirler Name Role Phone Aj Dumont MD Primary Care Provide r Reason for Visit * Reason Comments Med Refill Encounter Details Date Type Department Care Team ([facility] Contact Info) Description 12/17/2022 Refill [facility] MEDICINE [address] [place] [address] Aj Dumont MD 230 [place] [address] Chronic midline low back pain without sciatica [...] Upcoming Encounters Date Type Department Care Team ([facility] Contact Info) Description 11/13/2025 1:15 PM EST Office Visit [facility] MEDICINE [address] [place] [address] Aj Dumont MD 230 [place] [address] 01/07/2026 9:30 AM EST Telemedicine [facility] CHC MED & PEDS 505 [place] [address] 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, RN 505 [place] [address] 03/18/2026 2:00 PM EDT Office Visit [facility] OPTOMETRY [address] [place] [address] Paris Frances, OD 267 [place] [address] documented as of this encounter Visit Diagnoses Diagnosis Chronic midline low back pain without sciatica documented in this encounter Care Teams Baton Twirler Relationship Specialty Start Date End Date Aj Dumont MD 230 [place] [address] PCP - General Internal Medicine 09/12/14 [facility] 10/17/24 documented as of this encounter
--- NOTE | 2025-11-09 12:51 | MHC.OFFVIS ---
Vital Signs 11/09/25 12:53 Height 5 ft 11 in Weight 194 lb 0.108 oz BMI 27.1 BP 124/82 Blood Pressure Location Lt brachial Position Sitting Pulse 67 Intake Visit Reasons: Overdue 1 Year f/u Intake Note: 1 year follow-up with ekg c/o presser in chest when stressed or cold Insurance Writer Required: No Allergies No Known Allergies (No Known Allergies*) Allergy (Verified 06/22/25 10:20) Medication List - Last Reconciled 11/09/25 by YANIV Cueva amlodipine 5 mg PO QAM aspirin 81 mg PO BEDTIME atorvastatin 80 mg PO BEDTIME clindamycin phosphate 1% 1 appl topical DAILY 30 days cyclobenzaprine 5 mg PO Q8H PRN flash glucose sensor (FreeStyle Richelle 14 Day Sensor kit) As directed insulin glargine (Lantus Solostar U-100 Insulin) 42 units subcut BEDTIME lisinopril 40 mg PO DAILY meloxicam 15 mg PO DAILY 30 days metformin 1,000 mg BID metoprolol succinate ER 50 mg PO QPM omega-3 acid ethyl esters 0 caps PO omeprazole 20 mg DAILY sildenafil 100 mg PO ONCE PRN 30 days tadalafil 5 mg PO DAILY 90 days ticagrelor 90 mg PO BID HPI Comments Details: History of Present Illness The patient is a 65 year old male presenting for follow-up of coronary artery disease. He has a history of a prior LAD stent placed in 2020. A cardiac catheterization in 2022 showed a 70% stenosis of an ostial diagonal artery, a patent LAD stent with minimal in-stent restenosis, and mild disease in the circumflex and RCA. Last year, he reported an intermittent burning sensation in his left chest, which prompted a repeat cardiac catheterization on 07/28/2024. This procedure showed a patent LAD stent, a 50% stenosis in the first diagonal artery, and mild irregularities in the left circumflex and RCA. He reports his chest pain symptoms improved significantly after that procedure however no interventions were preformed. Over the last three months, the patient has experienced occasional, less severe chest pressure. He describes one significant episode in early October 2024, where he felt short of breath with mid-chest pressure after climbing several flights of stairs at a mall; these symptoms resolved with rest. He notes other episodes can be triggered by physical activity or worry. The patient reports unintentional weight loss, which he attributes to eating less and sometimes forgetting meals. He reports being largely inactive, especially during the winter, and notes that climbing a single flight of stairs at home can be difficult if he has not slept well. His past medical history is significant for hypertension, hyperlipidemia, diabetes, a history of smoking, and iron deficiency anemia. He is reportedly compliant with his medications, which include aspirin, brilinta, high-dose atorvastatin, amlodipine, lisinopril, and metoprolol. He denies any bleeding issues. Past Cardiac History - Coronary artery disease with prior left anterior descending (LAD) artery stent placement in 2020. - Cardiac catheterization (2022) revealed 70% ostial diagonal stenosis, patent LAD stent with minimal in-stent restenosis, and mild disease in the circumflex and right coronary artery (RCA). - Cardiac catheterization (07/28/2024) revealed a patent LAD stent, 50% stenosis of the first diagonal artery, and mild irregularities in the left circumflex and RCA. - Echocardiogram (03/22/2023) showed an ejection fraction of 52%, no regional wall motion abnormalities, no significant valve abnormalities, and mild dilation of the ascending aorta to 4.2 cm. Results - Labs from 01/31/2025: Hematocrit 34.7, Creatinine 0.77, LDL 46 mg/dL. - EKG (today): Sinus rhythm with premature atrial complexes, voltage criteria for left ventricular hypertrophy, and ST-T wave abnormalities in the inferior-lateral leads, possibly representing a repolarization abnormality versus ischemia. [facility] Medical History Epidermal cyst Abscess of hand, right Cellulitis Dog bite of extremity Acute coronary syndrome NSTEMI (non-ST elevated myocardial infarction) Smoking Essential hypertension Type 2 diabetes mellitus with unspecified complications Atherosclerotic cardiovascular disease HTN (hypertension) Diabetes Surgical History S/P cardiac cath Hidradenitis suppurativa History of coronary artery stent placement History of cardiac cath (~03/2019) Family History Father No problems noted. Mother Leukemia HTN (hypertension) Social History Household Members: Family and None Housing: Apartment Are you a primary palliative care specialist to a significant other at home: No Do you presently have visiting nurse or other home services: No Alcohol intake: current Alcohol intake frequency: holidays/special occasions only Comment: refuses bed alarm Patient Tobacco Use Status: Current everyday Tobacco user Tobacco use type: Cigarette Cigarette Packs Per Day: 0.25 Second Hand Smoke Exposure: No Substance Use Type: Marijuana Advance Directives Date on File: 02/04/21 service: No Current occupational status: unemployed Gender identity: Male Review of Systems Const All systems reviewed & are unremarkable except as noted in HPI and below Denies chills, Denies fatigue, Denies fever(s), Denies frequent falls, Denies weakness, Denies weight gain and Denies weight loss ENT Denies dizziness Card Details: episode of chest pressure with exertion Reports chest pain, Reports chest pain with activity, Denies leg edema, Denies lightheadedness, Denies palpitations, Denies dyspnea, Reports dyspnea on exertion, Denies orthopnea and Denies other (loss of consciousness) Resp Denies cough, Denies dyspnea and Reports dyspnea on exertion GI Denies hematochezia and Denies change in stool character Musc Denies abnormal gait, Denies muscle weakness, Denies numbness, Denies radiating pain into limb and Denies tingling Neuro Denies abnormal gait, Denies dizziness, Denies frequent falls, Denies numbness, Denies tingling and Denies weakness Endo Denies fatigue and Denies palpitations Physical Exam Vital Signs: BMI result Body Mass Index 27.1 Const General: cooperative, healthy appearing, comfortable and no acute distress Orientation/consciousness: patient oriented x3 Neck Neck: Yes normal visual inspection Resp Effort & Inspection: normal respiratory effort Auscultation: clear to auscultation bilaterally, no rales, no rhonchi and no wheezes Cardio Rate: regular rate Rhythm: regular rhythm Heart sounds: S1 normal heart sound present, S2 normal heart sound present, no gallops, no murmurs and no rubs Neuro General: patient oriented x3 Extrem General: Yes normal to inspection and No no pedal edema Psych Appearance: grossly normal Mental Status: mental status grossly normal Speech and movement: Normal speech and movement present Office Procedures EKG Details: Today, read by me, sinus rhythm with PAC, minimal voltage criteria for LVH, ST and T-wave abnormality, consider inferior ischemia versus possible repolarization abnormality, rate 67 [id number], Complete Assessment & Plan Assessment & Plan (1) Atherosclerotic cardiovascular disease: Code(s): I25.10 - Atherosclerotic heart disease of [place] coronary artery without angina pectoris Category: Medical (2) History of coronary artery stent placement: Comment: LAD Code(s): Z95.5 - Presence of coronary angioplasty implant and graft Category: Surgical (3) S/P cardiac cath: Comment: 02/04/21 mid LAD 95% stenosis, BERTA placed. normal systemic pressures, normal LVEDP 05/27/2023 lad minimal irregularities, patent mid LAD stent, left circumflex mild irregularities, proximal 30-40% stenosis, RCA 30% proximal stenosis. 07/28/2024 patent stent in LAD, 1st diagonal ostial 50% stenosis, left circumflex mild irregularities, RCA minimal luminal irregularities Code(s): Z98.890 - Other specified postprocedural states Category: Surgical (4) Essential hypertension: Code(s): I10 - Essential (primary) hypertension Category: Medical (5) Mild ascending aorta dilatation: Code(s): I77.810 - Thoracic aortic ectasia Category: Medical Plan Plan 1. Coronary Artery Disease The patient continues to have intermittent chest discomfort despite a recent cardiac catheterization in July 2024 showing a patent LAD stent and non-obstructive disease. Given his recurrent symptoms and the time elapsed since his last study, a new echocardiogram will be ordered to re-evaluate his cardiac function and wall motion. A new cardiac catheterization is not indicated at this time. Will consult with Dr. Sousa regarding the continued need for Brilinta, as the stent has been in place for over a year. He is advised to go to the emergency room for any prolonged chest discomfort. He will follow up in six months with Dr. Sousa. 2. Cardiovascular Risk Factors The patient will continue his current medical regimen for hypertension, hyperlipidemia, and coronary artery disease, which includes aspirin, high-dose atorvastatin, amlodipine, lisinopril, and metoprolol. His blood pressure and LDL are well-controlled on the current therapy. Discussion Notes I discussed with the patient that his recent cardiac catheterization showed his prior stent in the LAD artery is wide open. I explained that his ongoing chest discomfort is being evaluated. I informed him that we will order an echocardiogram, an ultrasound of the heart, to check his heart's pumping function and to see if there are any areas of muscle not moving well, which can be an indirect sign of a blockage. We discussed his medication, Brilinta, and I explained that as a stent matures over time and tissue grows over it, the risk of clotting decreases. I told him I will check with Dr. Sousa to determine if he still needs to continue this medication. I advised him to schedule a follow-up visit in six months, and instructed him to go to the emergency room for any chest discomfort that is persistent and does not resolve. Centralized scheduling will call him to schedule the echocardiogram. Patient Instructions - We are ordering an ultrasound of your heart, called an echocardiogram. Our scheduling department will call you to set up this appointment. - Continue to take all of your medications as prescribed, including aspirin, atorvastatin, amlodipine, lisinopril, and metoprolol. - If you experience chest pain or discomfort that does not go away with rest, go to the nearest emergency room. - Please let our office know if your episodes of chest discomfort become more frequent or severe. - Your next follow-up appointment in our office should be in six months with Dr. Sousa. Patient was informed and verbally consented to the use of an ambient scribe for clinic note documentation during this visit. Visit time spent on chart review, interview, assessment, orders, documentation. Orders: Orders CA echo transthoracic complete Today I25.10 - Atherosclerotic heart disease of [place] coronary artery without angina pectoris, I77.810 - Thoracic aortic ectasia, Z95.5 - Presence of coronary angioplasty implant and graft Coding Level of Care Code Est Pt Level 4 (66364) Add On Problem Visit Only Diagnoses Atherosclerotic cardiovascular disease I25.10 History of coronary artery stent placement Z95.5 S/P cardiac cath Z98.890 Essential hypertension I10 Mild ascending aorta dilatation I77.810 CPT Codes EKG - CPT: 51239-[id number], Complete ([id number]) Time Spent (min) 32
[2025-11-09 12:53] VITALS: BP 124/82; PULSE 67; BMI 27.1
== END 2025-11-09 13:24 | disposition home or self-care (01) ==
LOC: HO.HCS 12:42
PROVIDERS: PCP Internal Medicine; Visit Provider Nurse Practitioner Family
DX: I25.10 Atherosclerotic heart disease of native coronary artery without angina pectoris (principal); Z95.5 Presence of coronary angioplasty implant and graft; Z98.890 Other specified postprocedural states; I10 Essential (primary) hypertension; I77.810 Thoracic aortic ectasia
CPT/HCPCS: 93010; 99214; G2211

== ENCOUNTER → 2025-11-09 12:41 | Outpatient (BNVA) | payer MEDICARE, SELFPAY | PROVIDERS: PCP Internal Medicine; Visit Provider Nurse Practitioner Family | DX: I10 Essential (primary) hypertension (principal); I77.810 Thoracic aortic ectasia; I25.10 Atherosclerotic heart disease of native coronary artery without angina pectoris; F17.210 Nicotine dependence, cigarettes, uncomplicated; I25.83 Coronary atherosclerosis due to lipid rich plaque; Z79.82 Long term (current) use of aspirin; Z95.5 Presence of coronary angioplasty implant and graft; Z98.890 Other specified postprocedural states | CPT/HCPCS: 93005; 99212 ==